=== PATIENT | female | born 1935 | race Caucasian/White ===

== ENCOUNTER 2018-04-27 11:03 | Inpatient (IN) | payer MEDICARE ==
[2018-04-27] MEDS ORDERED: ALBUTEROL NEBULIZED 2.5 MG/3 ML INHALATION STA (11:35)
[2018-04-27] MEDS ORDERED: IPRATROPIUM 0.5 MG/2.5 ML NEBU INHALATION STA (11:35)
--- NOTE | 2018-04-27 11:45 | ED ---
General Adult HPI - General Chief complaint: Shortness of Breath Stated complaint: KATELIN Time Seen by Provider: 04/27/18 11:21 Source: patient, RN notes reviewed, old records reviewed Mode of arrival: wheelchair Limitations: no limitations - History of Present Illness Initial comments: This is a 82-year-old female the ER for evaluation. Patient presents today for evaluation regarding shortness of breath shortness breath cough and congestion. Lower extremity edema. Decreased exercise or activity level. Patient has history of heart failure history of lung disease. Patient was recently diagnosed with rheumatologic issues and arthritis. Placed on gabapentin thinks it may be medication reaction. Patient denies any fevers, she does have increased cough and congestion. No recent travel history no sick contacts no recent hospitalizations - Related Data Home Medications Medication Instructions Recorded Confirmed Ascorbic Acid [Vitamin C] 500 mg PO DAILY 04/27/18 04/27/18 Calcium Carbonate [Tums] 500 - 1,000 mg PO TID PRN 04/27/18 04/27/18 Carboxymethylcellulose Sodium 1 - 2 drop BOTH EYES QID PRN 04/27/18 04/27/18 [Refresh Tears] Carvedilol [Coreg] 12.5 mg PO HS 04/27/18 04/27/18 Carvedilol [Coreg] 25 mg PO DAILY 04/27/18 04/27/18 Cholecalciferol (Vitamin D3) 2,000 unit PO DAILY 04/27/18 04/27/18 [Vitamin D3] Claritin 12 Hour Reditabs 1 tab PO Q12H PRN 04/27/18 04/27/18 Diltiazem HCl [Diltiazem ER] 360 mg PO DAILY 04/27/18 04/27/18 Fluticasone/Vilanterol [Breo 1 puff INHALATION RT-DAILY 04/27/18 04/27/18 Ellipta 200-25 Mcg INH] Ipratropium/Albuterol Sulfate 1 puff INHALATION RT-QID PRN 04/27/18 04/27/18 [Combivent Respimat Inhaler] Latanoprost [Xalatan 0.005%] 1 drop RIGHT EYE HS 04/27/18 04/27/18 Montelukast [Singulair] 10 mg PO HS 04/27/18 04/27/18 Naproxen Sodium [Aleve] 440 mg PO BID 04/27/18 04/27/18 Ranitidine HCl [Zantac] 150 mg PO BID PRN 04/27/18 04/27/18 Allergies Allergy/AdvReac Type Severity Reaction Status Date / Time amlodipine Allergy Unknown Verified 04/27/18 11:52 benazepril [From Lotrel] Allergy Unknown Verified 04/27/18 11:52 cephalexin [From Keflex] Allergy Anaphylaxis Verified 04/27/18 11:52 Cephalosporins Allergy Anaphylaxis Verified 04/27/18 11:52 codeine Allergy Unknown Verified 04/27/18 11:52 gabapentin Allergy Swelling Verified 04/27/18 11:52 Iodinated Contrast- Oral and Allergy Anaphylaxis Verified 04/27/18 11:52 IV Dye nebivolol [From Bystolic] Allergy Unknown Verified 04/27/18 11:52 olmesartan [From Benicar] Allergy Unknown Verified 04/27/18 11:52 Penicillins Allergy Anaphylaxis Verified 04/27/18 11:52 Sulfa (Sulfonamide Allergy Anaphylaxis Verified 04/27/18 11:52 Antibiotics) apixaban [From Eliquis] AdvReac BONE PAIN Verified 04/27/18 11:52 clonidine AdvReac BLURRED Verified 04/27/18 11:52 VISION, DIZZY, SCRATCHY THROAT furosemide [From Lasix] AdvReac Nausea & Verified 04/27/18 11:52 Vomiting & Diarrhea hydralazine AdvReac CHILLS, Verified 04/27/18 11:52 SHAKING, LIGHT HEADED, FACE FLUSHED isosorbide [From Imdur] AdvReac Rapid Verified 04/27/18 11:52 Heart Rate labetalol AdvReac Dyspnea Verified 04/27/18 11:52 lisinopril AdvReac Nausea & Verified 04/27/18 11:52 Vomiting & Diarrhea/COUGH PAPER MEDICAL TAPE Allergy Unknown Uncoded 04/27/18 11:52 Review of Systems ROS Statement: Those systems with pertinent positive or pertinent negative responses have been documented in the HPI. ROS Other: All systems not noted in ROS Statement are negative. Past Medical History Past Medical History: Atrial Fibrillation, Asthma, Heart Failure, COPD, Hypertension, Thyroid Disorder History of Any Multi-Drug Resistant Organisms: None Reported Past Surgical History: Hysterectomy, Tonsillectomy Additional Past Surgical History / Comment(s): bladder suspension, ectopic, thyroid biopsy, cataract, glaucoma sx Past Psychological History: No Psychological Hx Reported Smoking Status: Former smoker Past Alcohol Use History: None Reported Past Drug Use History: None Reported General Exam Limitations: no limitations General appearance: alert, in no apparent distress, in distress Head exam: Present: atraumatic, normocephalic, normal inspection Eye exam: Present: normal appearance, PERRL, EOMI. Absent: scleral icterus, conjunctival injection, periorbital swelling ENT exam: Present: normal exam, mucous membranes moist Neck exam: Present: normal inspection. Absent: tenderness, meningismus, lymphadenopathy Respiratory exam: Present: wheezes, rales, accessory muscle use, decreased breath sounds, prolonged expiratory. Absent: respiratory distress, rhonchi, stridor Cardiovascular Exam: Present: regular rate, normal rhythm, normal heart sounds. Absent: systolic murmur, diastolic murmur, rubs, gallop, clicks GI/Abdominal exam: Present: soft, normal bowel sounds. Absent: distended, tenderness, guarding, rebound, rigid Extremities exam: Present: normal inspection, full ROM, normal capillary refill. Absent: tenderness, pedal edema, joint swelling, calf tenderness Back exam: Present: normal inspection Neurological exam: Present: alert, oriented X3, CN II-XII intact Psychiatric exam: Present: normal affect, normal mood Skin exam: Present: warm, dry, intact, normal color. Absent: rash Course Vital Signs 04/27/18 04/27/18 04/27/18 11:04 11:55 12:10 Temperature 97.8 F Pulse Rate 76 76 80 Respiratory 25 H Rate Blood Pressure 191/90 O2 Sat by Pulse 92 L Oximetry 04/27/18 04/27/18 12:32 12:52 Temperature Pulse Rate 80 81 Respiratory 28 H Rate Blood Pressure 226/111 O2 Sat by Pulse 86 L Oximetry - Reevaluation(s) Reevaluation #1: 04/27/18 13:24 A she had significant hypoxic episode here in the emergency room while ambulating to use the commode. Patient improved when placed back in bed and on oxygen Reevaluation #2: 04/27/18 13:25 Medical records thoroughly reviewed EKG Findings - EKG Comments: EKG Findings:: EKG shows NSR rate of 73, NE 138, QRS 84, QTc 423 Medical Decision Making - Medical Decision Making 81-year-old female the ER for evaluation. Patient is here with significant shortness of breath, positive CHF. Patient be admitted for tight blood pressure control, breathing treatments and monitoring of cardiopulmonary resuscitation, moderate hypoxia. - Lab Data Result diagrams: 04/27/18 11:42 04/27/18 11:42 Lab Results 04/27/18 04/27/18 04/27/18 Range/Units 11:42 11:42 11:42 WBC 7.2 (3.8-10.6) k/uL RBC 4.33 (3.80-5.40) m/uL Hgb 13.4 (11.4-16.0) gm/dL Hct 42.9 (34.0-46.0) % MCV 99.0 (80.0-100.0) fL MCH 30.8 (25.0-35.0) pg MCHC 31.1 (31.0-37.0) g/dL RDW 15.3 (11.5-15.5) % Plt Count 117 L (150-450) k/uL Neutrophils % 82 % Lymphocytes % 10 % Monocytes % 7 % Eosinophils % 1 % Basophils % 0 % Neutrophils # 5.9 (1.3-7.7) k/uL Lymphocytes # 0.7 L (1.0-4.8) k/uL Monocytes # 0.5 (0-1.0) k/uL Eosinophils # 0.1 (0-0.7) k/uL Basophils # 0.0 (0-0.2) k/uL Macrocytosis Slight PT (9.0-12.0) sec INR (<1.2) APTT (22.0-30.0) sec Sodium 143 (137-145) mmol/L Potassium 4.1 (3.5-5.1) mmol/L Chloride 114 H (98-107) mmol/L Carbon Dioxide 24 (22-30) mmol/L Anion Gap 5 mmol/L BUN 29 H (7-17) mg/dL Creatinine 0.80 (0.52-1.04) mg/dL Est GFR (CKD-EPI)AfAm 80 (>60 ml/min/1.73 sqM) Est GFR (CKD-EPI)NonAf 70 (>60 ml/min/1.73 sqM) Glucose 124 H (74-99) mg/dL Calcium 8.7 (8.4-10.2) mg/dL Magnesium 2.0 (1.6-2.3) mg/dL Total Bilirubin 1.1 (0.2-1.3) mg/dL AST 23 (14-36) U/L ALT 99 H (9-52) U/L Alkaline Phosphatase 59 (38-126) U/L Total Creatine Kinase 33 (30-135) U/L CK-MB (CK-2) 1.7 (0.0-2.4) ng/mL CK-MB (CK-2) Rel Index 5.2 Troponin I 0.015 (0.000-0.034) ng/mL NT-Pro-B Natriuret Pep pg/mL Total Protein 5.5 L (6.3-8.2) g/dL Albumin 3.0 L (3.5-5.0) g/dL Urine Color Urine Appearance (Clear) Urine pH (5.0-8.0) Ur Specific [place] (1.001-1.035) Urine Protein (Negative) Urine Glucose (UA) (Negative) Urine Ketones (Negative) Urine Blood (Negative) Urine Nitrite (Negative) Urine Bilirubin (Negative) Urine Urobilinogen (<2.0) mg/dL Ur Leukocyte Esterase (Negative) Urine RBC (0-5) /hpf Urine WBC (0-5) /hpf Ur Squamous Epith Cells (0-4) /hpf Urine Bacteria (None) /hpf Urine Mucus (None) /hpf 04/27/18 04/27/18 04/27/18 Range/Units 11:42 11:42 12:46 WBC (3.8-10.6) k/uL RBC (3.80-5.40) m/uL Hgb (11.4-16.0) gm/dL Hct (34.0-46.0) % MCV (80.0-100.0) fL MCH (25.0-35.0) pg MCHC (31.0-37.0) g/dL RDW (11.5-15.5) % Plt Count (150-450) k/uL Neutrophils % % Lymphocytes % % Monocytes % % Eosinophils % % Basophils % % Neutrophils # (1.3-7.7) k/uL Lymphocytes # (1.0-4.8) k/uL Monocytes # (0-1.0) k/uL Eosinophils # (0-0.7) k/uL Basophils # (0-0.2) k/uL Macrocytosis PT 11.8 (9.0-12.0) sec INR 1.2 H (<1.2) APTT 20.2 L (22.0-30.0) sec Sodium (137-145) mmol/L Potassium (3.5-5.1) mmol/L Chloride (98-107) mmol/L Carbon Dioxide (22-30) mmol/L Anion Gap mmol/L BUN (7-17) mg/dL Creatinine (0.52-1.04) mg/dL Est GFR (CKD-EPI)AfAm (>60 ml/min/1.73 sqM) Est GFR (CKD-EPI)NonAf (>60 ml/min/1.73 sqM) Glucose (74-99) mg/dL Calcium (8.4-10.2) mg/dL Magnesium (1.6-2.3) mg/dL Total Bilirubin (0.2-1.3) mg/dL AST (14-36) U/L ALT (9-52) U/L Alkaline Phosphatase (38-126) U/L Total Creatine Kinase (30-135) U/L CK-MB (CK-2) (0.0-2.4) ng/mL CK-MB (CK-2) Rel Index Troponin I (0.000-0.034) ng/mL NT-Pro-B Natriuret Pep 3390 pg/mL Total Protein (6.3-8.2) g/dL Albumin (3.5-5.0) g/dL Urine Color Yellow Urine Appearance Cloudy H (Clear) Urine pH 5.5 (5.0-8.0) Ur Specific [place] 1.021 (1.001-1.035) Urine Protein 1+ H (Negative) Urine Glucose (UA) Negative (Negative) Urine Ketones Negative (Negative) Urine Blood Negative (Negative) Urine Nitrite Negative (Negative) Urine Bilirubin Negative (Negative) Urine Urobilinogen <2.0 (<2.0) mg/dL Ur Leukocyte Esterase Moderate H (Negative) Urine RBC 3 (0-5) /hpf Urine WBC 6 H (0-5) /hpf Ur Squamous Epith Cells 3 (0-4) /hpf Urine Bacteria Rare H (None) /hpf Urine Mucus Rare H (None) /hpf - Radiology Data Radiology results: report reviewed (Chest x-ray is positive for CHF), image reviewed Critical Care Time Critical Care Time: Yes Total Critical Care Time: 31 Disposition Clinical Impression: Acute exacerbation of chronic obstructive airways disease, Acute pulmonary edema, Congestive heart failure, Hypoxia Disposition: [facility] Condition: Serious Is patient prescribed a controlled substance at d/c from ED?: No Referrals: Elham Kumar MD [Primary Care Provider] - 1-2 days
[2018-04-27 12:00] LABS: Basophils % (A) 0 %; Eosinophils # (A) 0.1 k/uL (0-0.7); Eosinophils % (A) 1 %; HCT 42.9 % (34.0-46.0); HGB 13.4 gm/dL (11.4-16.0); Lymphocytes # (A) 0.7 k/uL (1.0-4.8); Lymphocytes % (A) 10 %; MCH 30.8 pg (25.0-35.0); MCHC 31.1 g/dL (31.0-37.0); Macrocytosis Slight; Mean Platelet Volume 7.4; Monocytes # (A) 0.5 k/uL (0-1.0); Monocytes % (A) 7 %; Neutrophils # (A) 5.9 k/uL (1.3-7.7); Neutrophils % (A) 82 %; Platelet Count 117 k/uL (150-450); RBC 4.33 m/uL (3.80-5.40); RDW 15.3 % (11.5-15.5); WBC 7.2 k/uL (3.8-10.6)
[2018-04-27 12:11] LABS: Calcium 8.7 mg/dL (8.4-10.2); Potassium 4.1 mmol/L (3.5-5.1); Total Bilirubin 1.1 mg/dL (0.2-1.3); Total Protein 5.5 g/dL (6.3-8.2)
[2018-04-27 12:27] LABS: INR 1.2 (<1.2); Prothrombin Time 11.8 sec (9.0-12.0)
[2018-04-27 12:32] LABS: Partial Thromboplastin Time 20.2 sec (22.0-30.0)
[2018-04-27] MEDS ORDERED: ENALAPRILAT 1.25 MG/ML 1 ML VIAL IVP STA (12:45)
[2018-04-27] MEDS ORDERED: FUROSEMIDE 10 MG/ML 4 ML VIAL IV STA (12:45)
[2018-04-27 12:46] LABS: Creatine Kinase MB 1.7 ng/mL (0.0-2.4); Troponin I 0.015 ng/mL (0.000-0.034)
--- NOTE | 2018-04-27 12:48 | XR ---
EXAMINATION TYPE: XR chest 2V DATE OF EXAM: 04/27/2018 COMPARISON: Chest x-ray November 09, 2012. CTA chest September 21, 2012. HISTORY: Bilateral leg swelling and shortness of breath TECHNIQUE: Frontal and lateral views of the chest are obtained. FINDINGS: There is moderate to severe underlying emphysematous change with new tiny bilateral pleura l effusions. More prominent bilateral interstitial prominence is noted. The cardiac silhouette size i s now mildly enlarged. The osseous structures are intact. IMPRESSION: Suspected CHF exacerbation on background moderate to severe chronic emphysematous change as there is new mild cardiomegaly with small bilateral pleural effusions and likely new mild interst itial edema.
[2018-04-27 13:16] LABS: Appearance,Urine Cloudy (Clear); Bacteria,Urine Rare /hpf; Bilirubin,Urine Negative (Negative); Blood,Urine Negative (Negative); Color,Urine Yellow; Glucose,Urine (UA) Negative (Negative); Ketones,Urine Negative (Negative); Leukocyte Esterase,Urine Moderate (Negative); Mucus,Urine Rare /hpf; Nitrite,Urine Negative (Negative); PH, Urine 5.5 (5.0-8.0); Protein,Urine 1+ (Negative); RBC,Urine 3 /hpf (0-5); Specific Gravity,Urine 1.021 (1.001-1.035); Squamous Epithelial Cell,Urine 3 /hpf (0-4); Urobilinogen,Urine <2.0 mg/dL (<2.0); WBC,Urine 6 /hpf (0-5)
[2018-04-27] MEDS ORDERED: methylPREDNISolone SOD SUCCI 125 MG/2 ML VIAL IV STA (13:21)
[2018-04-27] MEDS ORDERED: SPIRONOLACTONE 25 MG TAB PO STA (13:23)
[2018-04-27] MEDS ORDERED: HYDROCHLOROTHIAZIDE 50 MG TAB PO STA (13:23)
[2018-04-27] MEDS ORDERED: ARTIFICIAL TEARS-HYPROMELLOSE DROPS 15 ML BTL BOTH EYES PRN (14:48)
[2018-04-27] MEDS ORDERED: FAMOTIDINE 20 MG TAB PO PRN (14:48)
[2018-04-27] MEDS ORDERED: CALCIUM CARBONATE 500 MG CHEWABLE PO PRN (14:48)
[2018-04-27] MEDS ORDERED: LORATADINE 10 MG TAB PO PRN (14:48)
[2018-04-27] MEDS ORDERED: IPRATROPIUM-ALBUTEROL 3 ML NEB INHALATION PRN ×2 (14:48→14:50)
[2018-04-27] MEDS ORDERED: LEVOFLOXACIN 500 MG TAB PO SCH (15:00)
--- NOTE | 2018-04-27 15:10 | P.HPIM ---
History of Present Illness H&P Date: 04/27/18 Chief Complaint: Shortness of breath and lower extremity edema This is a 82-year-old female with a known past medical history of paroxysmal atrial fibrillation, COPD, congestive heart failure and hypertension. Patient reports multiple medication ALLERGIES. Patient examined in the emergency room. She presents to the hospital with complaints of lower extremity edema and shortness of breath over the last week. Patient was recently started on gabapentin by the band straightener. She is under going rheumatology workup outpatient. Patient has been on the gabapentin for the past 3 weeks. And within the last week she's noticed increased swelling in her legs and shortness of breath. Initially she thought she was having an ALLERGIC reaction to the gabapentin. She presented to the emergency room for further evaluation and treatment. She was found to have elevated BNP 3390. Chest x-ray shows suspected CHF exacerbation on background of moderate to severe chronic emphysematous change as there is new mild cardiomegaly with small bilateral pleural effusions and likely new mild interstitial edema. She diagnosed with CHF exacerbation. Patient has ALLERGY to Lasix. Also had elevated blood pressure in the emergency room of 226/111. She was given hydrochlorothiazide and Aldactone. Also started on IV Solu-Medrol and bronchodilators for a COPD exacerbation. Pulmonary and cardiology have been consulted. Her oxygen saturation had dropped down into the 80s and she is currently on 3 L. Patient also reports urinary symptoms with urinary hesitancy. She has evidence of a UTI will be placed on Levaquin. She does penicillin and sulfa ALLERGY. Gabapentin discontinued. Patient denies any chest pain, cough, fever or chills or sweats. Denies any nausea or vomiting. Reports over the last day or 2 she' s had frequent stools but they are formed. She denies any headaches. Denies any lateralized weakness or numbness of the extremities. She does reports having some vision changes in both eyes lasting for a few minutes yesterday while looking out the window. Vision returned to normal after those few minutes. EKG normal sinus rhythm. Troponins negative. Review of Systems Please refer to HPI otherwise unremarkable Past Medical History Past Medical History: Atrial Fibrillation, Asthma, Heart Failure, COPD, Hypertension, Thyroid Disorder History of Any Multi-Drug Resistant Organisms: None Reported Past Surgical History: Hysterectomy, Tonsillectomy Additional Past Surgical History / Comment(s): bladder suspension, ectopic, thyroid biopsy, cataract, glaucoma sx Past Psychological History: No Psychological Hx Reported Smoking Status: Former smoker Past Alcohol Use History: None Reported Past Drug Use History: None Reported Medications and Allergies Home Medications Medication Instructions Recorded Confirmed Type Ascorbic Acid [Vitamin C] 500 mg PO DAILY 04/27/18 04/27/18 History Calcium Carbonate [Tums] 500 - 1,000 mg PO TID PRN 04/27/18 04/27/18 History Carboxymethylcellulose Sodium 1 - 2 drop BOTH EYES QID PRN 04/27/18 04/27/18 History [Refresh Tears] Carvedilol [Coreg] 12.5 mg PO HS 04/27/18 04/27/18 History Carvedilol [Coreg] 25 mg PO DAILY 04/27/18 04/27/18 History Cholecalciferol (Vitamin D3) 2,000 unit PO DAILY 04/27/18 04/27/18 History [Vitamin D3] Claritin 12 Hour Reditabs 1 tab PO Q12H PRN 04/27/18 04/27/18 History Diltiazem HCl [Diltiazem ER] 360 mg PO DAILY 04/27/18 04/27/18 History Fluticasone/Vilanterol [Breo 1 puff INHALATION RT-DAILY 04/27/18 04/27/18 History Ellipta 200-25 Mcg INH] Ipratropium/Albuterol Sulfate 1 puff INHALATION RT-QID PRN 04/27/18 04/27/18 History [Combivent Respimat Inhaler] Latanoprost [Xalatan 0.005%] 1 drop RIGHT EYE HS 04/27/18 04/27/18 History Montelukast [Singulair] 10 mg PO HS 04/27/18 04/27/18 History Naproxen Sodium [Aleve] 440 mg PO BID 04/27/18 04/27/18 History Ranitidine HCl [Zantac] 150 mg PO BID PRN 04/27/18 04/27/18 History Allergies Allergy/AdvReac Type Severity Reaction Status Date / Time amlodipine Allergy Unknown Verified 04/27/18 11:52 benazepril [From Lotrel] Allergy Unknown Verified 04/27/18 11:52 cephalexin [From Keflex] Allergy Anaphylaxis Verified 04/27/18 11:52 Cephalosporins Allergy Anaphylaxis Verified 04/27/18 11:52 codeine Allergy Unknown Verified 04/27/18 11:52 gabapentin Allergy Swelling Verified 04/27/18 11:52 Iodinated Contrast- Oral and Allergy Anaphylaxis Verified 04/27/18 11:52 IV Dye nebivolol [From Bystolic] Allergy Unknown Verified 04/27/18 11:52 olmesartan [From Benicar] Allergy Unknown Verified 04/27/18 11:52 Penicillins Allergy Anaphylaxis Verified 04/27/18 11:52 Sulfa (Sulfonamide Allergy Anaphylaxis Verified 04/27/18 11:52 Antibiotics) apixaban [From Eliquis] AdvReac BONE PAIN Verified 04/27/18 11:52 clonidine AdvReac BLURRED Verified 04/27/18 11:52 VISION, DIZZY, SCRATCHY THROAT furosemide [From Lasix] AdvReac Nausea & Verified 04/27/18 11:52 Vomiting & Diarrhea hydralazine AdvReac CHILLS, Verified 04/27/18 11:52 SHAKING, LIGHT HEADED, FACE FLUSHED isosorbide [From Imdur] AdvReac Rapid Verified 04/27/18 11:52 Heart Rate labetalol AdvReac Dyspnea Verified 04/27/18 11:52 lisinopril AdvReac Nausea & Verified 04/27/18 11:52 Vomiting & Diarrhea/COUGH PAPER MEDICAL TAPE Allergy Unknown Uncoded 04/27/18 11:52 Physical Exam Vitals: Vital Signs Temp Pulse Resp BP Pulse Ox 04/27/18 13:55 87 18 187/87 95 04/27/18 13:38 77 18 182/88 92 L 04/27/18 12:52 81 28 H 226/111 86 L 04/27/18 12:32 80 04/27/18 12:10 80 04/27/18 11:55 76 04/27/18 11:04 97.8 F 76 25 H 191/90 92 L Intake and Output 04/26/18 04/27/18 04/27/18 22:59 06:59 14:59 Other: Weight 94.347 kg Head normocephalic Neck supple Lungs crackles left lower lobe with faint scattered wheezing Heart regular rate and rhythm S1-S2, no rub or gallop Abdomen is soft nontender nondistended positive bowel sounds no hepatosplenomegaly Extremities +2 lower extremity edema with chronic stasis changes of the legs. Right tibia has some redness. Patient reports this is chronic. Does not feel warm to touch. Neuro alert and orientated to 3 Results CBC & Chem 7: 04/27/18 11:42 04/27/18 11:42 Labs: Abnormal Lab Results - Last 24 Hours (Table) 04/27/18 04/27/18 04/27/18 Range/Units 11:42 11:42 11:42 Plt Count 117 L (150-450) k/uL Lymphocytes # 0.7 L (1.0-4.8) k/uL INR 1.2 H (<1.2) APTT 20.2 L (22.0-30.0) sec Chloride 114 H (98-107) mmol/L BUN 29 H (7-17) mg/dL Glucose 124 H (74-99) mg/dL ALT 99 H (9-52) U/L Total Protein 5.5 L (6.3-8.2) g/dL Albumin 3.0 L (3.5-5.0) g/dL Urine Appearance (Clear) Urine Protein (Negative) Ur Leukocyte Esterase (Negative) Urine WBC (0-5) /hpf Urine Bacteria (None) /hpf Urine Mucus (None) /hpf 04/27/18 Range/Units 12:46 Plt Count (150-450) k/uL Lymphocytes # (1.0-4.8) k/uL INR (<1.2) APTT (22.0-30.0) sec Chloride (98-107) mmol/L BUN (7-17) mg/dL Glucose (74-99) mg/dL ALT (9-52) U/L Total Protein (6.3-8.2) g/dL Albumin (3.5-5.0) g/dL Urine Appearance Cloudy H (Clear) Urine Protein 1+ H (Negative) Ur Leukocyte Esterase Moderate H (Negative) Urine WBC 6 H (0-5) /hpf Urine Bacteria Rare H (None) /hpf Urine Mucus Rare H (None) /hpf Assessment and Plan Assessment: 1. Acute hypoxic respiratory failure likely multifactorial related to congestive heart failure exacerbation and COPD exacerbation. Patient requiring 3 L of oxygen. Pulmonary service consulted. 2. Acute on chronic congestive heart failure exacerbation: Check 2-D echo. Patient had elevated BNP on admission and CHF changes on chest x-ray. Patient has ALLERGY to Lasix. She was given Aldactone and hydrochlorothiazide in the ER. Cardiology has been consulted 3. Acute COPD exacerbation: Patient started on IV site Medrol bronchodilators. Pulmonary service consulted. No evidence of pneumonia on chest x-ray 4. History of paroxysmal atrial fibrillation: Continue Coreg and Cardizem. Not on anticoagulation at home. Patient reports having ALLERGY to Eliquis and did not want to try any other blood thinners. EKG normal sinus rhythm 5. UTI: Check urine culture. Start Levaquin 6. Hypertensive urgency on admission: Patient given hydrochlorothiazide and Aldactone in ER. Continue monitoring BP. Resume home medications. Cardiology consulted 7. Essential hypertension GI prophylaxis Pepcid and DVT prophylaxis Lovenox Time with Patient: Greater than 30 (Greater than 60% of the total time spent in counseling and coordination of care.I performed an examination of the patient and discussed their management with the physician Sales Operations. I have reviewed the Physician Sales Operations's notes and agree with the documented findings and plan of care)
[2018-04-27] MEDS: IPRATROPIUM-ALBUTEROL 3 ML NEB INHALATION SCH ×2 (16:00→19:45)
[2018-04-27] MEDS: CLINDAMYCIN 150 MG CAP PO SCH ×2 (17:28→22:41)
[2018-04-27] MEDS ORDERED: NAPROXEN 250 MG TAB PO SCH (17:30)
[2018-04-27 18:43] LABS: Glucose,Whole Blood 211 mg/dL (75-99)
[2018-04-27] MEDS: INSULIN ASPART 100 UNIT/ML 1 ML 10 ML VIAL SQ SCH ×2 (19:02→22:38)
[2018-04-27] MEDS: methylPREDNISolone SOD SUCCI 125 MG/2 ML VIAL IV SCH (19:02)
[2018-04-27] MEDS: SYMBICORT 160-4.5 MCG INHALER INHALATION SCH (19:53)
[2018-04-27] MEDS ORDERED: CARVEDILOL 12.5 MG TAB PO SCH (21:00)
[2018-04-27] MEDS: NAPROXEN 250 MG TAB PO SCH (22:39)
[2018-04-27] MEDS: MONTELUKAST 10 MG TAB PO SCH (22:41)
[2018-04-27] MEDS: LATANOPROST 0.005% OPHTH DROPS 2.5 ML BTL RIGHT EYE SCH (22:44)
[2018-04-28] MEDS: methylPREDNISolone SOD SUCCI 125 MG/2 ML VIAL IV SCH ×2 (00:23→05:55)
[2018-04-28 06:30] LABS: Glucose,Whole Blood 159 mg/dL (75-99)
[2018-04-28] MEDS: INSULIN ASPART 100 UNIT/ML 1 ML 10 ML VIAL SQ SCH ×5 (06:34→21:15)
[2018-04-28 06:54] LABS: Basophils % (A) 0 %; Eosinophils % (A) 0 %; HCT 38.5 % (34.0-46.0); HGB 12.2 gm/dL (11.4-16.0); Lymphocytes # (A) 0.4 k/uL (1.0-4.8); Lymphocytes % (A) 8 %; MCH 30.7 pg (25.0-35.0); MCHC 31.7 g/dL (31.0-37.0); MCV 96.6 fL (80.0-100.0); Mean Platelet Volume 7.7; Monocytes # (A) 0.1 k/uL (0-1.0); Monocytes % (A) 2 %; Neutrophils # (A) 4.9 k/uL (1.3-7.7); Neutrophils % (A) 90 %; Platelet Count 116 k/uL (150-450); RBC 3.99 m/uL (3.80-5.40); RDW 14.8 % (11.5-15.5); WBC 5.5 k/uL (3.8-10.6)
[2018-04-28 07:09] LABS: Albumin 2.6 g/dL (3.5-5.0); Calcium 8.5 mg/dL (8.4-10.2); Potassium 3.9 mmol/L (3.5-5.1); Total Bilirubin 0.9 mg/dL (0.2-1.3); Total Protein 4.9 g/dL (6.3-8.2)
[2018-04-28] MEDS: IPRATROPIUM-ALBUTEROL 3 ML NEB INHALATION SCH ×4 (07:56→19:43)
[2018-04-28] MEDS: SYMBICORT 160-4.5 MCG INHALER INHALATION SCH (07:56)
[2018-04-28] MEDS ORDERED: DILTIAZEM CD 180 MG CAP.ER.24H PO SCH (09:00)
[2018-04-28] MEDS ORDERED: BUMETANIDE 1 MG TAB PO SCH (09:00)
[2018-04-28] MEDS ORDERED: CARVEDILOL 12.5 MG TAB PO SCH (09:00)
[2018-04-28] MEDS: NAPROXEN 250 MG TAB PO SCH ×2 (09:26→20:25)
[2018-04-28] MEDS: CHOLECALCIFEROL 1,000 UNIT TAB PO SCH (09:27)
[2018-04-28] MEDS: FAMOTIDINE 20 MG TAB PO SCH (09:27)
[2018-04-28] MEDS: CLINDAMYCIN 150 MG CAP PO SCH ×3 (09:27→20:24)
[2018-04-28] MEDS: ENOXAPARIN 40 MG/0.4 ML SYRINGE SQ SCH (09:34)
--- NOTE | 2018-04-28 09:51 | P.CRDCN ---
History of Present Illness Consult date: 04/28/18 Requesting physician: Elham Kumar Consult reason: congestive heart failure Chief complaint: Shortness of breath and bilateral lower extremity edema History of present illness: This is a pleasant 82-year-old female who follows regularly with Dr. Holliday in the office. She has a known history of hypertension, COPD, proximal atrial fibrillation, patient states she was initiated on Eliquis in the past by Dr. Holliday, but had difficulty in breathing and for this reason she stopped it. Patient has multiple multiple ALLERGIES. She presents to the hospital on this occasion with symptoms of progressively worsening peripheral edema which she states has been going on for the past one week or so, she also states for the past few days she's been very short of breath, to the point where she feels she is unable to breathe at all. Her shortness of breath mainly occurs with exertion, even walking a very short distance to the bathroom. At rest her symptoms seemed to subside. Patient also states that she's been getting some discomfort in her upper back area between her scapula which she has been attributing to muscle pain. According to the patient, she states she had a stress test in the office performed by Dr. Holliday he told the patient that there was a shadow and recommended she undergo cardiac catheterization, patient decided at that time because it was only a shadow not to proceed with heart catheterization. Patient was recently started on a medication called gabapentin approximately 3 weeks ago, when the symptoms of swelling started in both legs she thought initially it was from that, because symptoms continued to worsen and she had no relief with her breathing treatments she came to the ER. Chest x-ray on admission here revealed CHF exacerbation on the background of moderate to severe emphysema, small bilateral pleural effusions were also noted. EKG on arrival here shows a normal sinus rhythm. Blood pressure on arrival 190/90, heart rate in the 70s, 92% on room air. Blood pressure this morning 150/90 with a heart rate in the 90s, 94% on 2 L of oxygen. White blood cell count is normal, hemoglobin 12.2, platelet count 116. Sodium 141, potassium 3.9, BUN 23, creatinine 0.7. Troponins have been negative 3. BNP level 3390. TSH level 0.19. The patient does have an ALLERGY to Lasix, she was given a dose of hydrochlorothiazide in the emergency room as well as Aldactone. 019. Past Medical History Past Medical History: Atrial Fibrillation, Asthma, Heart Failure, COPD, Hypertension, Thyroid Disorder History of Any Multi-Drug Resistant Organisms: None Reported Past Surgical History: Hysterectomy, Tonsillectomy Additional Past Surgical History / Comment(s): bladder suspension, ectopic, thyroid biopsy, cataract, glaucoma sx Past Psychological History: No Psychological Hx Reported Smoking Status: Former smoker Past Alcohol Use History: None Reported Past Drug Use History: None Reported Medications and Allergies Home Medications Medication Instructions Recorded Confirmed Type Ascorbic Acid [Vitamin C] 500 mg PO DAILY 04/27/18 04/27/18 History Calcium Carbonate [Tums] 500 - 1,000 mg PO TID PRN 04/27/18 04/27/18 History Carboxymethylcellulose Sodium 1 - 2 drop BOTH EYES QID PRN 04/27/18 04/27/18 History [Refresh Tears] Carvedilol [Coreg] 12.5 mg PO HS 04/27/18 04/27/18 History Carvedilol [Coreg] 25 mg PO DAILY 04/27/18 04/27/18 History Cholecalciferol (Vitamin D3) 2,000 unit PO DAILY 04/27/18 04/27/18 History [Vitamin D3] Claritin 12 Hour Reditabs 1 tab PO Q12H PRN 04/27/18 04/27/18 History Diltiazem HCl [Diltiazem ER] 360 mg PO DAILY 04/27/18 04/27/18 History Fluticasone/Vilanterol [Breo 1 puff INHALATION RT-DAILY 04/27/18 04/27/18 History Ellipta 200-25 Mcg INH] Ipratropium/Albuterol Sulfate 1 puff INHALATION RT-QID PRN 04/27/18 04/27/18 History [Combivent Respimat Inhaler] Latanoprost [Xalatan 0.005%] 1 drop RIGHT EYE HS 04/27/18 04/27/18 History Montelukast [Singulair] 10 mg PO HS 04/27/18 04/27/18 History Naproxen Sodium [Aleve] 440 mg PO BID 04/27/18 04/27/18 History Ranitidine HCl [Zantac] 150 mg PO BID PRN 04/27/18 04/27/18 History Allergies Allergy/AdvReac Type Severity Reaction Status Date / Time amlodipine Allergy Unknown Verified 04/27/18 11:52 benazepril [From Lotrel] Allergy Unknown Verified 04/27/18 11:52 cephalexin [From Keflex] Allergy Anaphylaxis Verified 04/27/18 11:52 Cephalosporins Allergy Anaphylaxis Verified 04/27/18 11:52 codeine Allergy Unknown Verified 04/27/18 11:52 gabapentin Allergy Swelling Verified 04/27/18 11:52 Iodinated Contrast- Oral and Allergy Anaphylaxis Verified 04/27/18 11:52 IV Dye nebivolol [From Bystolic] Allergy Unknown Verified 04/27/18 11:52 olmesartan [From Benicar] Allergy Unknown Verified 04/27/18 11:52 Penicillins Allergy Anaphylaxis Verified 04/27/18 11:52 Sulfa (Sulfonamide Allergy Anaphylaxis Verified 04/27/18 11:52 Antibiotics) apixaban [From Eliquis] AdvReac BONE PAIN Verified 04/27/18 11:52 clonidine AdvReac BLURRED Verified 04/27/18 11:52 VISION, DIZZY, SCRATCHY THROAT furosemide [From Lasix] AdvReac Nausea & Verified 04/27/18 11:52 Vomiting & Diarrhea hydralazine AdvReac CHILLS, Verified 04/27/18 11:52 SHAKING, LIGHT HEADED, FACE FLUSHED isosorbide [From Imdur] AdvReac Rapid Verified 04/27/18 11:52 Heart Rate labetalol AdvReac Dyspnea Verified 04/27/18 11:52 lisinopril AdvReac Nausea & Verified 04/27/18 11:52 Vomiting & Diarrhea/COUGH PAPER MEDICAL TAPE Allergy Unknown Uncoded 04/27/18 11:52 Physical Exam Vitals: Vital Signs Temp Pulse Pulse Resp BP BP Pulse Ox 04/28/18 08:10 84 04/28/18 07:56 82 04/28/18 04:00 97.9 F 80 18 161/77 91 L 04/28/18 00:00 98 F 69 16 165/69 95 04/27/18 20:00 97.9 F 71 18 147/71 94 L 04/27/18 19:47 86 20 04/27/18 17:05 98.2 F 78 18 178/84 97 04/27/18 16:12 80 16 08/21/18 16:02 78 16 04/27/18 15:00 68 18 187/87 96 04/27/18 14:08 97.9 F 73 16 172/71 95 04/27/18 14:00 72 18 178/92 95 04/27/18 13:55 87 18 187/87 95 04/27/18 13:38 77 18 182/88 92 L 04/27/18 12:52 81 28 H 226/111 86 L 04/27/18 12:32 80 04/27/18 12:10 80 04/27/18 11:55 76 04/27/18 11:04 97.8 F 76 25 H 191/90 92 L Intake and Output 04/27/18 04/28/18 04/28/18 22:59 06:59 14:59 Intake Total 120 Output Total 1000 Balance 120 -1000 Intake: Oral 120 Output: Urine 1000 Other: Voiding Method Bedside Commode Bedside Commode # Voids 1 Weight 97.5 kg PHYSICAL EXAMINATION: GENERAL: 82-year-old female in no acute distress at the time of my examination HEENT: Head is atraumatic, normocephalic. Pupils equal, round. Sclera anicteric. Conjunctiva are clear. Mucous membranes of the mouth are moist. Neck is supple. There is elevated jugular venous pressure. No carotid bruit is heard. HEART EXAMINATION: Heart S1 S2 1 systolic murmur is heard. CHEST EXAMINATION: Lungs reveal diminished air entry bilaterally with rales heard at the bases ABDOMEN: Soft, nontender. Bowel sounds are heard. No organomegaly noted. EXTREMITIES:[ 2+ peripheral pulses with 2+ evidence of peripheral edema NEUROLOGIC patient is awake, alert and oriented X3 . Results 04/29/18 06:22 04/29/18 06:22 Cardiac Enzymes 04/27/18 04/27/18 04/27/18 Range/Units 11:42 11:42 19:11 AST 23 (14-36) U/L CK-MB (CK-2) 1.7 (0.0-2.4) ng/mL Troponin I 0.015 <0.012 (0.000-0.034) ng/mL 04/28/18 04/28/18 Range/Units 00:17 06:11 AST 17 (14-36) U/L CK-MB (CK-2) (0.0-2.4) ng/mL Troponin I <0.012 (0.000-0.034) ng/mL Coagulation 04/27/18 Range/Units 11:42 PT 11.8 (9.0-12.0) sec APTT 20.2 L (22.0-30.0) sec CBC 04/27/18 04/28/18 Range/Units 11:42 06:11 WBC 7.2 5.5 (3.8-10.6) k/uL RBC 4.33 3.99 (3.80-5.40) m/uL Hgb 13.4 12.2 (11.4-16.0) gm/dL Hct 42.9 38.5 (34.0-46.0) % Plt Count 117 L 116 L (150-450) k/uL Comprehensive Metabolic Panel 04/27/18 04/28/18 Range/Units 11:42 06:11 Sodium 143 141 (137-145) mmol/L Potassium 4.1 3.9 (3.5-5.1) mmol/L Chloride 114 H 113 H (98-107) mmol/L Carbon Dioxide 24 23 (22-30) mmol/L BUN 29 H 23 H (7-17) mg/dL Creatinine 0.80 0.74 (0.52-1.04) mg/dL Glucose 124 H 144 H (74-99) mg/dL Calcium 8.7 8.5 (8.4-10.2) mg/dL AST 23 17 (14-36) U/L ALT 99 H 76 H (9-52) U/L Alkaline Phosphatase 59 53 (38-126) U/L Total Protein 5.5 L 4.9 L (6.3-8.2) g/dL Albumin 3.0 L 2.6 L (3.5-5.0) g/dL Current Medications Generic Name Dose Route Start Last Admin Trade Name Freq PRN Reason Stop Dose Admin Albuterol/Ipratropium 3 ml 04/27/18 16:00 04/28/18 07:56 Duoneb 0.5 Mg-3 Mg/3 Ml Soln INHALATION 3 ml RT-QID ОЛЕГ Administration Albuterol/Ipratropium 3 ml 04/27/18 14:50 Duoneb 0.5 Mg-3 Mg/3 Ml Soln INHALATION RT-Q2H PRN Shortness Of Breath Or Wheezing Artificial Tears 2 drops 04/27/18 14:48 Artificial Tear Drops BOTH EYES QID PRN Dry Eye(s) Budesonide/Formoterol Fumarate 1 puff 04/28/18 08:00 04/28/18 07:56 Symbicort 160-4.5 Mcg Inhaler INHALATION 1 puff RT-BID ОЛЕГ Administration Bumetanide 1 mg 04/28/18 09:00 Bumex PO BID@0900,1600 [facility] Calcium Carbonate/Glycine 500 mg 04/27/18 14:48 Tums PO TID PRN Heartburn Carvedilol 12.5 mg 04/27/18 21:00 04/27/18 22:41 Coreg PO 12.5 mg HS [facility] Administration Carvedilol 25 mg 04/28/18 09:00 Coreg PO DAILY [facility] Cholecalciferol 2,000 unit 04/28/18 09:00 Vitamin D3 PO DAILY [facility] Clindamycin HCl 150 mg 04/27/18 16:00 04/27/18 22:41 Cleocin PO 150 mg TID [facility] Administration Diltiazem HCl 360 mg 04/28/18 09:00 Cardizem Cd PO DAILY [facility] Enoxaparin Sodium 40 mg 04/28/18 09:00 Lovenox SQ DAILY [facility] Famotidine 20 mg 04/28/18 09:00 Pepcid PO DAILY [facility] Insulin Aspart 0 unit 04/27/18 17:30 04/28/18 06:34 Novolog SQ 3 unit ACHS [facility] Administration Protocol Latanoprost 1 drops 04/27/18 21:00 04/27/18 22:44 Xalatan 0.005% RIGHT EYE 1 drops HS [facility] Administration Loratadine 10 mg 04/27/18 14:48 Claritin PO Q24H PRN Allergy Symptoms Methylprednisolone Sodium Succinate 60 mg 04/27/18 18:00 04/28/18 05:55 Solu-Medrol IV 60 mg Q6HR [facility] Administration Montelukast Sodium 10 mg 04/27/18 21:00 04/27/18 22:41 Singulair PO 10 mg HS [facility] Administration Naproxen 500 mg 04/27/18 21:00 04/27/18 22:39 Naprosyn PO 500 mg BID [facility] Administration Intake and Output 08/21/18 08/22/18 08/22/18 22:59 06:59 14:59 Intake Total 120 Output Total 1000 Balance 120 -1000 Intake: Oral 120 Output: Urine 1000 Other: Voiding Method Bedside Commode Bedside Commode # Voids 1 Weight 97.5 kg 04/28/18 06:11 04/28/18 06:11 EKG Interpretations (text) Assessment and plan #1 acute hypoxic respiratory failure, likely secondary congestive heart failure exacerbation, diastolic, acute on chronic, and COPD exacerbation. . #2 COPD history #3 paroxysmal atrial fibrillation, patient had stopped taking Eliquis because of symptoms of shortness of breath. #4 hypertensive urgency in a patient with history of hypertension #5 prior history of smoking #6 symptoms of exertional shortness of breath, possible angina. Patient was told to have had a positive stress test in the office and recommended to undergo cardiac catheterization which she refused at that time. Troponins negative 3. Plan We will start the patient on Bumex IV twice a day, increase Coreg to 25 mg twice a day for more optimal blood pressure control, she was on 25 in the morning and 12-1/2 in the afternoon. Monitor intake and output along with daily weights, daily lytes. We will obtain the office records and review. Once the patient heart failure resolves, cardiac catheterization. Further recommendations to follow. DNP note has been reviewed, I agree with a documented findings and plan of care. Patient was seen and examined.
--- NOTE | 2018-04-28 11:28 | P.CNPUL ---
History of Present Illness Consult date: 04/28/18 Reason for consult: dyspnea, hypoxemia Chief complaint: Shortness of breath History of present illness: This is an 82-year-old female who presented emergency department complaining of shortness of breath. The patient states this has been getting worse over the past few weeks. She did note worsening lower extremity edema however she states that she frequently has swelling and it usually goes away. She states this time it didn't seem to go away. She does have a known history of asthma and COPD. She takes Breo and Combivent at home. The patient has a history of atrial fibrillation and congestive heart failure as well. On chest x-ray she was found to have pulmonary vascular congestion and cardiomegaly. The patient is being seen by cardiology. She denies fevers and chills. She does not smoke. She has been hemodynamically stable. The patient apparently had a positive stress test on some outpatient but does not undergo cardiac catheterization. The patient is agreeable to proceed with that at this time. She also stopped taking Eliquis despite a history of paroxysmal atrial fibrillation. She felt it was making her breathing worse. Per the patient and her daughter the patient isn't got very short of breath even with minimal exertion at home. And this had been ongoing for several weeks. Review of Systems All systems: negative Past Medical History Past Medical History: Atrial Fibrillation, Asthma, Heart Failure, COPD, Hypertension, Thyroid Disorder History of Any Multi-Drug Resistant Organisms: None Reported Past Surgical History: Hysterectomy, Tonsillectomy Additional Past Surgical History / Comment(s): bladder suspension, ectopic, thyroid biopsy, cataract, glaucoma sx Past Psychological History: No Psychological Hx Reported Smoking Status: Former smoker Past Alcohol Use History: None Reported Past Drug Use History: None Reported Medications and Allergies Home Medications Medication Instructions Recorded Confirmed Type Ascorbic Acid [Vitamin C] 500 mg PO DAILY 04/27/18 04/27/18 History Calcium Carbonate [Tums] 500 - 1,000 mg PO TID PRN 04/27/18 04/27/18 History Carboxymethylcellulose Sodium 1 - 2 drop BOTH EYES QID PRN 04/27/18 04/27/18 History [Refresh Tears] Carvedilol [Coreg] 12.5 mg PO HS 04/27/18 04/27/18 History Carvedilol [Coreg] 25 mg PO DAILY 04/27/18 04/27/18 History Cholecalciferol (Vitamin D3) 2,000 unit PO DAILY 04/27/18 04/27/18 History [Vitamin D3] Claritin 12 Hour Reditabs 1 tab PO Q12H PRN 04/27/18 04/27/18 History Diltiazem HCl [Diltiazem ER] 360 mg PO DAILY 04/27/18 04/27/18 History Fluticasone/Vilanterol [Breo 1 puff INHALATION RT-DAILY 04/27/18 04/27/18 History Ellipta 200-25 Mcg INH] Ipratropium/Albuterol Sulfate 1 puff INHALATION RT-QID PRN 04/27/18 04/27/18 History [Combivent Respimat Inhaler] Latanoprost [Xalatan 0.005%] 1 drop RIGHT EYE HS 04/27/18 04/27/18 History Montelukast [Singulair] 10 mg PO HS 04/27/18 04/27/18 History Naproxen Sodium [Aleve] 440 mg PO BID 04/27/18 04/27/18 History Ranitidine HCl [Zantac] 150 mg PO BID PRN 04/27/18 04/27/18 History Allergies Allergy/AdvReac Type Severity Reaction Status Date / Time amlodipine Allergy Unknown Verified 04/27/18 11:52 benazepril [From Lotrel] Allergy Unknown Verified 04/27/18 11:52 cephalexin [From Keflex] Allergy Anaphylaxis Verified 04/27/18 11:52 Cephalosporins Allergy Anaphylaxis Verified 04/27/18 11:52 codeine Allergy Unknown Verified 04/27/18 11:52 gabapentin Allergy Swelling Verified 04/27/18 11:52 Iodinated Contrast- Oral and Allergy Anaphylaxis Verified 04/27/18 11:52 IV Dye nebivolol [From Bystolic] Allergy Unknown Verified 04/27/18 11:52 olmesartan [From Benicar] Allergy Unknown Verified 04/27/18 11:52 Penicillins Allergy Anaphylaxis Verified 04/27/18 11:52 Sulfa (Sulfonamide Allergy Anaphylaxis Verified 04/27/18 11:52 Antibiotics) apixaban [From Eliquis] AdvReac BONE PAIN Verified 04/27/18 11:52 clonidine AdvReac BLURRED Verified 04/27/18 11:52 VISION, DIZZY, SCRATCHY THROAT furosemide [From Lasix] AdvReac Nausea & Verified 04/27/18 11:52 Vomiting & Diarrhea hydralazine AdvReac CHILLS, Verified 04/27/18 11:52 SHAKING, LIGHT HEADED, FACE FLUSHED isosorbide [From Imdur] AdvReac Rapid Verified 04/27/18 11:52 Heart Rate labetalol AdvReac Dyspnea Verified 04/27/18 11:52 lisinopril AdvReac Nausea & Verified 04/27/18 11:52 Vomiting & Diarrhea/COUGH PAPER MEDICAL TAPE Allergy Unknown Uncoded 04/27/18 11:52 Physical Exam Osteopathic Statement: *. No significant issues noted on an osteopathic structural exam other than those noted in the History and Physical/Consult. Vitals: Vital Signs Temp Pulse Pulse Resp BP BP Pulse Ox 04/28/18 09:15 97.9 F 92 24 149/98 94 L 04/28/18 08:10 84 04/28/18 07:56 82 04/28/18 04:00 97.9 F 80 18 161/77 91 L 04/28/18 00:00 98 F 69 16 165/69 95 04/27/18 20:00 97.9 F 71 18 147/71 94 L 04/27/18 19:47 86 20 04/27/18 17:05 98.2 F 78 18 178/84 97 04/27/18 16:12 80 16 04/27/18 16:02 78 16 04/27/18 15:00 68 18 187/87 96 04/27/18 14:08 97.9 F 73 16 172/71 95 04/27/18 14:00 72 18 178/92 95 04/27/18 13:55 87 18 187/87 95 04/27/18 13:38 77 18 182/88 92 L 04/27/18 12:52 81 28 H 226/111 86 L 04/27/18 12:32 80 04/27/18 12:10 80 04/27/18 11:55 76 Intake and Output 04/27/18 04/28/18 04/28/18 22:59 06:59 14:59 Intake Total 120 Output Total 1000 Balance 120 -1000 Intake: Oral 120 Output: Urine 1000 Other: Voiding Method Bedside Commode Bedside Commode # Voids 1 Weight 97.5 kg Gen.: Patient is alert and oriented 3, no acute distress Cardiovascular: Regular rate and rhythm, S1 plus S2 Lungs: Scattered crackles bilaterally Abdomen: Soft nontender nondistended positive bowel sounds Extremities: 1+ edema Results - Laboratory Findings CBC and BMP: 04/28/18 06:11 04/28/18 06:11 PT/INR, D-dimer PT 11.8 sec (9.0-12.0) 04/27/18 11:42 INR 1.2 (<1.2) H 04/27/18 11:42 Abnormal lab findings: Abnormal Labs 04/27/18 04/27/18 04/27/18 11:42 11:42 11:42 Plt Count 117 L Lymphocytes # 0.7 L INR 1.2 H APTT 20.2 L Chloride 114 H BUN 29 H Glucose 124 H POC Glucose (mg/dL) ALT 99 H Total Protein 5.5 L Albumin 3.0 L TSH Urine Appearance Urine Protein Ur Leukocyte Esterase Urine WBC Urine Bacteria Urine Mucus 04/27/18 04/27/18 04/27/18 12:46 18:41 19:11 Plt Count Lymphocytes # INR APTT Chloride BUN Glucose POC Glucose (mg/dL) 211 H ALT Total Protein Albumin TSH 0.199 L Urine Appearance Cloudy H Urine Protein 1+ H Ur Leukocyte Esterase Moderate H Urine WBC 6 H Urine Bacteria Rare H Urine Mucus Rare H 04/28/18 04/28/18 04/28/18 06:11 06:11 06:28 Plt Count 116 L Lymphocytes # 0.4 L INR APTT Chloride 113 H BUN 23 H Glucose 144 H POC Glucose (mg/dL) 159 H ALT 76 H Total Protein 4.9 L Albumin 2.6 L TSH Urine Appearance Urine Protein Ur Leukocyte Esterase Urine WBC Urine Bacteria Urine Mucus - Diagnostic Findings Chest x-ray: report reviewed, image reviewed Assessment and Plan Assessment: Acute hypoxic respiratory failure Acute exacerbation of CHF Paroxysmal atrial fibrillation Pulmonary vascular congestion Asthma and COPD, not acutely exacerbated Lower extremity edema Moderate protein calorie malnutrition Obesity Mild thrombocytopenia O2 to maintain saturation greater than or equal to 90% Duo nebs and Pulmicort Singulair Diuresis Monitor I's and O's Serial CXR Daily weights Echocardiogram Cardiology recommendations for possible heart catheterization once CHF is resolved No need for steroids at this time from pulmonary standpoint No need for antibiotics from pulmonary standpoint Incentive spirometry and pulmonary hygiene GI and DVT prophylaxis Thank you for this consultation we'll continue to follow along
--- NOTE | 2018-04-28 11:52 | ECHOF ---
Referral Reason:check EF MEASUREMENTS -------- HEIGHT: 167.6 cm WEIGHT: 97.1 kg BP: IVSd: 1.2 cm (0.6 - 1.1) LVIDd: 3.5 cm (3.9 - 5.3) LVPWd: 1.2 cm (0.6 - 1.1) IVSs: 1.5 cm LVIDs: 1.9 cm LVPWs: 1.7 cm LAESV Index (A-L): 18.62 ml/m Ao Diam: 3.2 cm (2.0 - 3.7) LA Diam: 3.6 cm (2.7 - 3.8) MV EXCURSION: 10.933 mm (> 18.000) MV EF SLOPE: 59 mm/s (70 - 150) EPSS: 2.1 cm MV E Renato: 0.82 m/s MV DecT: 237 ms MV A Renato: 1.03 m/s MV E/A Ratio: 0.80 RAP: 15.00 mmHg RVSP: 20.82 mmHg FINDINGS -------- Undetermined rhythm. This was a technically adequate study. The left ventricular size is normal. There is mild concentric left ventricular hypertrophy. Overa ll left ventricular systolic function is normal with, an EF between 55 - 60 %. The right ventricle is normal in size and function. The left atrium is normal in size. The right atrium is normal in size. The aortic valve is trileaflet, and appears structurally normal. No aortic stenosis or regurgitation. The mitral valve is normal. Mild mitral regurgitation is present. Trace tricuspid regurgitation present. There is no evidence of pulmonary hypertension. The right ventricular systolic pressure, as measured by Doppler, is 20.82mmHg. The pulmonic valve was not well visualized. There is no pulmonic regurgitation present. The aortic root size is normal. There is a small, generalized pericardial effusion present. CONCLUSIONS -------- 1. Undetermined rhythm. 2. This was a technically adequate study. 3. The left ventricular size is normal. 4. There is mild concentric left ventricular hypertrophy. 5. Overall left ventricular systolic function is normal with, an EF between 55 - 60 %. 6. The left atrium is normal in size. 7. The aortic valve is trileaflet, and appears structurally normal. No aortic stenosis or regurgitati on. 8. Mild mitral regurgitation is present. 9. Trace tricuspid regurgitation present. 10. There is no evidence of pulmonary hypertension. 11. The pulmonic valve was not well visualized. 12. There is no pulmonic regurgitation present. 13. The aortic root size is normal. 14. There is a small, generalized pericardial effusion present. GROUP TEACHER: Fozia Nino RDCS
--- NOTE | 2018-04-28 14:01 | CDI ---
Last Revision, August 2017 Documentation Clarification Form Date: 04/28/2018 1:44:52 PM From: Ivana Son, [facility], CCDS Admit Date: 04/27/2018 1:21:00 PM Patient Name: Susan Bhatt Visit Number: [id number] Discharge Date: ATTENTION: The Clinical Documentation Specialists (CDI) and [facility] Coding Staff appreciate your assistance in clarifying documentation. Please respond to the clarification below the line at the bottom and electronically sign. The CDI & [facility] Coding staff will review the response and follow-up if needed. Please note: Queries are made part of the Legal Health Record. If you have any questions, please contact the author of this message via ITS. Linette Palacio, DO: 82 yo female, admitted with SOB & lower extremity edema. Per your pulmonary consult, asthma & COPD, not acutely exacerbated is documented. Patient history/risk factors: Paroxysmal Atrial Fibrillation, CHF, Hypertension and former smoker. Multiple medication allergies. Clinical Indicators: VS: R 25 (non labored, SOB); BP 191/90, PO 92 RA - 86 3Lnc RAD: CXR: Suspected CHF exacerbation: moderate to severe chronic emphysematous change, new cardiomegaly with small bilateral pleural effusions & likely new mild interstitial edema. Treatment: Albuterol, Atrovent INH, IV Vasotec, IV Lasix, IV Solumedrol, po Levaquin, discontinued due to interaction with Symbicort. O2 3Lnc. In your professional opinion, can you please further specify the following, if known? Acuity: o Acute Exacerbation o Status asthmaticus o Acute lower respiratory infection o COPD (specify with or without exacerbation) o Chronic obstructive bronchitis o Other, please specify o Unable to determine Severity: o Mild intermittent o Mild persistent o Moderate persistent o Severe persistent o Other, please specify o Unable to determine Form or Type: o Cough variant o Childhood o Exercise induced bronchospasm o Extrinsic allergic o Idiosyncratic o Intrinsic nonallergic o Late-onset o Mixed o Other, please specify o Unable to determine Please continue to document in your progress notes and discharge summary in order to capture severity of illness and risk of mortality. Include clinical findings that support your diagnosis. MTDD
--- NOTE | 2018-04-28 14:24 | P.PN ---
Subjective Progress Note Date: 04/28/18 This is a 82-year-old female with a known past medical history of paroxysmal atrial fibrillation, COPD, congestive heart failure and hypertension. Patient reports multiple medication ALLERGIES. Patient examined in the emergency room. She presents to the hospital with complaints of lower extremity edema and shortness of breath over the last week. Patient was recently started on gabapentin by the harness puller. She is under going rheumatology workup outpatient. Patient has been on the gabapentin for the past 3 weeks. And within the last week she's noticed increased swelling in her legs and shortness of breath. Initially she thought she was having an ALLERGIC reaction to the gabapentin. She presented to the emergency room for further evaluation and treatment. She was found to have elevated BNP 3390. Chest x-ray shows suspected CHF exacerbation on background of moderate to severe chronic emphysematous change as there is new mild cardiomegaly with small bilateral pleural effusions and likely new mild interstitial edema. She diagnosed with CHF exacerbation. Patient has ALLERGY to Lasix. Also had elevated blood pressure in the emergency room of 226/111. She was given hydrochlorothiazide and Aldactone. Also started on IV Solu-Medrol and bronchodilators for a COPD exacerbation. Pulmonary and cardiology have been consulted. Her oxygen saturation had dropped down into the 80s and she is currently on 3 L. Patient also reports urinary symptoms with urinary hesitancy. She has evidence of a UTI will be placed on Levaquin. She does penicillin and sulfa ALLERGY. Gabapentin discontinued. Patient denies any chest pain, cough, fever or chills or sweats. Denies any nausea or vomiting. Reports over the last day or 2 she' s had frequent stools but they are formed. She denies any headaches. Denies any lateralized weakness or numbness of the extremities. She does reports having some vision changes in both eyes lasting for a few minutes yesterday while looking out the window. Vision returned to normal after those few minutes. EKG normal sinus rhythm. Troponins negative. On 04/28/2018 patient is currently resting comfortably in bed on 2 L nasal cannula. 2-D echo completed showing EF between 55 and 60%. Patient denies chest pain. Does state some improvement shortness breath. Denies nausea vomiting or diarrhea. Denies any urinary burning or frequency. Objective - Vital Signs Vital signs: Vital Signs Temp 97.9 F 04/28/18 11:56 Pulse 77 04/28/18 11:56 Resp 20 04/28/18 11:56 BP 155/81 04/28/18 11:56 Pulse Ox 96 04/28/18 11:56 Intake & Output 04/27/18 04/28/18 04/28/18 18:59 06:59 18:59 Intake Total 120 Output Total 1200 Balance 120 -1200 Weight 94.347 kg 97.5 kg 97.5 kg Intake: Oral 120 Output: Urine 1200 Other: Voiding Method Bedside Commode Bedside Commode Bedside Commode # Voids 1 # Bowel Movements 1 - Exam Head normocephalic Neck supple Lungs crackles left lower lobe with faint scattered wheezing Heart regular rate and rhythm S1-S2, no rub or gallop Abdomen is soft nontender nondistended positive bowel sounds no hepatosplenomegaly Extremities no edema Neuro alert and orientated to 3 - Labs CBC & Chem 7: 04/28/18 06:11 04/28/18 06:11 Labs: Abnormal Lab Results - Last 24 Hours (Table) 04/27/18 04/27/18 04/28/18 Range/Units 18:41 19:11 06:11 Plt Count 116 L (150-450) k/uL Lymphocytes # 0.4 L (1.0-4.8) k/uL Chloride (98-107) mmol/L BUN (7-17) mg/dL Glucose (74-99) mg/dL POC Glucose (mg/dL) 211 H (75-99) mg/dL ALT (9-52) U/L Total Protein (6.3-8.2) g/dL Albumin (3.5-5.0) g/dL TSH 0.199 L (0.465-4.680) mIU/L 04/28/18 04/28/18 Range/Units 06:11 06:28 Plt Count (150-450) k/uL Lymphocytes # (1.0-4.8) k/uL Chloride 113 H (98-107) mmol/L BUN 23 H (7-17) mg/dL Glucose 144 H (74-99) mg/dL POC Glucose (mg/dL) 159 H (75-99) mg/dL ALT 76 H (9-52) U/L Total Protein 4.9 L (6.3-8.2) g/dL Albumin 2.6 L (3.5-5.0) g/dL TSH (0.465-4.680) mIU/L Microbiology - Last 24 Hours (Table) 04/27/18 12:46 Urine Culture - Preliminary Urine,Clean Catch Assessment and Plan Assessment: 1. Acute hypoxic respiratory failure likely multifactorial related to congestive heart failure exacerbation and COPD exacerbation. Patient requiring 3 L of oxygen. Pulmonary service consulted. 2. Acute on chronic congestive heart failure exacerbation: Check 2-D echo. Patient had elevated BNP on admission and CHF changes on chest x-ray. Patient has ALLERGY to Lasix. She was given Aldactone and hydrochlorothiazide in the ER. Cardiology has been consulted. 2-D echo completed showing EF 55-60%. Cardiology patient has been started on Bumex 1 mg twice a day. Coreg has been increased to 25 mg twice a day. Per cardiology once patient's heart failure resolves will plan for cardiac catheterization. 3. Acute COPD exacerbation: Patient started on IV site Medrol bronchodilators. Pulmonary service consulted. No evidence of pneumonia on chest x-ray. Steroids discontinued from pulmonology. Continue duo nebs, Pulmicort, and Singulair per pulmonology 4. History of paroxysmal atrial fibrillation: Continue Coreg and Cardizem. Not on anticoagulation at home. Patient reports having ALLERGY to Eliquis and did not want to try any other blood thinners. EKG normal sinus rhythm 5. UTI: Check urine culture. Patient currently on clindamycin 6. Hypertensive urgency on admission: Patient given hydrochlorothiazide and Aldactone in ER. Continue monitoring BP. Resume home medications. Cardiology consulted. Coreg has been increased to twice a day per cardiology. 7. Essential hypertension GI prophylaxis Pepcid and DVT prophylaxis Lovenox I performed an examination of the patient and discussed their management with the Nurse Practitioner. I have reviewed the Nurse Practitioner's notes and agree with the documented findings and plan of care
[2018-04-28 14:45] LABS: Hemoglobin A1C 6.4 % (4.0-6.0)
[2018-04-28 16:44] LABS: Glucose,Whole Blood 242 mg/dL (75-99)
[2018-04-28] MEDS: CARVEDILOL 12.5 MG TAB PO SCH (17:01)
[2018-04-28 17:07] LABS: Glucose,Whole Blood 226 mg/dL (75-99)
[2018-04-28] MEDS: BUDESONIDE 0.5 MG/2 ML NEBU INHALATION SCH (19:43)
[2018-04-28] MEDS: BUMETANIDE 0.25 MG/ML 4 ML VIAL IVP SCH (20:24)
[2018-04-28] MEDS: LATANOPROST 0.005% OPHTH DROPS 2.5 ML BTL RIGHT EYE SCH (20:24)
[2018-04-28] MEDS: MONTELUKAST 10 MG TAB PO SCH (20:26)
[2018-04-28 20:55] LABS: Glucose,Whole Blood 194 mg/dL (75-99)
[2018-04-29] MEDS ORDERED: DILTIAZEM DRIP BOLUS FROM BAG 1 MG SOLN IV ONE (01:29)
[2018-04-29] MEDS: DILTIAZEM 50 MG in SODIUM CHLORIDE 0.9% 40 ML IV SCH ×3 (02:06→10:06)
[2018-04-29] MEDS ORDERED: DIGOXIN 250 MCG/ML 2 ML AMP IVP ONE (04:31)
[2018-04-29 06:06] LABS: Glucose,Whole Blood 154 mg/dL (75-99)
[2018-04-29] MEDS: CARVEDILOL 12.5 MG TAB PO SCH ×2 (06:29→17:00)
[2018-04-29] MEDS: INSULIN ASPART 100 UNIT/ML 1 ML 10 ML VIAL SQ SCH ×4 (06:29→21:44)
[2018-04-29] MEDS: IPRATROPIUM-ALBUTEROL 3 ML NEB INHALATION SCH ×4 (06:57→19:04)
[2018-04-29] MEDS: BUDESONIDE 0.5 MG/2 ML NEBU INHALATION SCH ×2 (06:57→19:04)
[2018-04-29 07:09] LABS: Basophils % (A) 0 %; Eosinophils % (A) 0 %; HGB 12.5 gm/dL (11.4-16.0); Lymphocytes # (A) 0.6 k/uL (1.0-4.8); Lymphocytes % (A) 5 %; MCH 29.2 pg (25.0-35.0); MCHC 29.7 g/dL (31.0-37.0); MCV 98.6 fL (80.0-100.0); Macrocytosis Slight; Mean Platelet Volume 7.6; Monocytes # (A) 0.4 k/uL (0-1.0); Monocytes % (A) 4 %; Neutrophils # (A) 9.7 k/uL (1.3-7.7); Neutrophils % (A) 90 %; Platelet Count 140 k/uL (150-450); RBC 4.26 m/uL (3.80-5.40); RDW 15.2 % (11.5-15.5); WBC 10.7 k/uL (3.8-10.6)
[2018-04-29 07:28] LABS: Albumin 2.7 g/dL (3.5-5.0); Calcium 8.5 mg/dL (8.4-10.2); Potassium 3.8 mmol/L (3.5-5.1); Total Bilirubin 0.8 mg/dL (0.2-1.3); Total Protein 5.2 g/dL (6.3-8.2)
--- NOTE | 2018-04-29 09:38 | P.PN ---
Subjective Progress Note Date: 04/29/18 History of present illness: This is an 82-year-old female who presented emergency department complaining of shortness of breath. The patient states this has been getting worse over the past few weeks. She did note worsening lower extremity edema however she states that she frequently has swelling and it usually goes away. She states this time it didn't seem to go away. She does have a known history of asthma and COPD. She takes Breo and Combivent at home. The patient has a history of atrial fibrillation and congestive heart failure as well. On chest x-ray she was found to have pulmonary vascular congestion and cardiomegaly. The patient is being seen by cardiology. She denies fevers and chills. She does not smoke. She has been hemodynamically stable. The patient apparently had a positive stress test on some outpatient but does not undergo cardiac catheterization. The patient is agreeable to proceed with that at this time. She also stopped taking Eliquis despite a history of paroxysmal atrial fibrillation. She felt it was making her breathing worse. Per the patient and her daughter the patient isn't got very short of breath even with minimal exertion at home. And this had been ongoing for several weeks. Interval History: 04/29/18- patient is being seen examined and evaluated today on rounds. She is resting up in bed on 2 L of supplemental oxygen via nasal cannula. Upon examination the patient is somewhat agitated. States that she is frustrated with her health care at this point. He states she does not like people changing her medications, it is explained to the patient any change in medication is only to help treat her current health issues and is in her best interest. She has had some tachycardia this morning rates in the 120s, currently she is on a Cardizem drip for that. She states her shortness of breath is improving slightly however still gets short of breath with any activity and exertion. She has a chronic cough. Echocardiogram was obtained EF 55-60%, there is a small generalized pericardial effusion present, no evidence of pulmonary hypertension. Daughter is at bedside updated on plan of care. Objective - Vital Signs Vital signs: Vital Signs Temp 97.9 F 04/29/18 04:00 Pulse 88 04/29/18 07:13 Resp 18 04/29/18 04:00 BP 132/89 04/29/18 04:00 Pulse Ox 94 L 04/29/18 04:00 Intake & Output 04/28/18 04/29/18 04/29/18 18:59 06:59 18:59 Intake Total 180 1042.333 Output Total 1200 2900 Balance -1020 -1857.667 Weight 97.5 kg 97.3 kg Intake: Intake, IV Titration 22.333 Amount Diltiazem 50 mg In Sodium 22.333 Chloride 0.9% 40 ml @ 10 MG/HR 10 mls/hr IV .Q5H [facility] Rx#:[id number] Oral 180 1020 Output: Urine 1200 2900 Other: Voiding Method Bedside Commode Bedside Commode # Voids 1 # Bowel Movements 1 - Exam Gen.: Patient is alert and oriented 3, no acute distress Cardiovascular: afib with RVR, S1, S2 Lungs: Bases dimished with some faint Scattered crackles bilaterally Abdomen: Soft nontender nondistended positive bowel sounds Extremities: 1-2+ edema - Labs CBC & Chem 7: 04/29/18 06:22 04/29/18 06:22 Labs: Abnormal Lab Results - Last 24 Hours (Table) 04/27/18 04/28/18 04/28/18 Range/Units 11:42 11:56 17:06 WBC (3.8-10.6) k/uL MCHC (31.0-37.0) g/dL Plt Count (150-450) k/uL Neutrophils # (1.3-7.7) k/uL Lymphocytes # (1.0-4.8) k/uL Chloride (98-107) mmol/L BUN (7-17) mg/dL Glucose (74-99) mg/dL POC Glucose (mg/dL) 242 H 226 H (75-99) mg/dL Hemoglobin A1c 6.4 H (4.0-6.0) % ALT (9-52) U/L Total Protein (6.3-8.2) g/dL Albumin (3.5-5.0) g/dL 04/28/18 04/29/18 04/29/18 Range/Units 20:52 06:03 06:22 WBC 10.7 H (3.8-10.6) k/uL MCHC 29.7 L (31.0-37.0) g/dL Plt Count 140 L (150-450) k/uL Neutrophils # 9.7 H (1.3-7.7) k/uL Lymphocytes # 0.6 L (1.0-4.8) k/uL Chloride (98-107) mmol/L BUN (7-17) mg/dL Glucose (74-99) mg/dL POC Glucose (mg/dL) 194 H 154 H (75-99) mg/dL Hemoglobin A1c (4.0-6.0) % ALT (9-52) U/L Total Protein (6.3-8.2) g/dL Albumin (3.5-5.0) g/dL 04/29/18 Range/Units 06:22 WBC (3.8-10.6) k/uL MCHC (31.0-37.0) g/dL Plt Count (150-450) k/uL Neutrophils # (1.3-7.7) k/uL Lymphocytes # (1.0-4.8) k/uL Chloride 111 H (98-107) mmol/L BUN 34 H (7-17) mg/dL Glucose 157 H (74-99) mg/dL POC Glucose (mg/dL) (75-99) mg/dL Hemoglobin A1c (4.0-6.0) % ALT 62 H (9-52) U/L Total Protein 5.2 L (6.3-8.2) g/dL Albumin 2.7 L (3.5-5.0) g/dL Microbiology - Last 24 Hours (Table) 04/27/18 12:46 Urine Culture - Preliminary Urine,Clean Catch Gram Neg Bacilli Assessment and Plan Assessment: Assessment: Acute hypoxic respiratory failure Acute exacerbation of CHF Paroxysmal atrial fibrillation Pulmonary vascular congestion COPD, not acutely exacerbated Chronic moderate to severe persistent asthma not acutely exacerbated Lower extremity edema Moderate protein calorie malnutrition Obesity Mild thrombocytopenia Plan Medications reviewed and will be continued as ordered O2 to maintain saturation greater than or equal to 90% Home oxygen assessment prior to discharge Duo nebs and Pulmicort Singulair Diuresis Monitor I's and O's Repeat CXR in AM Daily weights Echocardiogram Cardiology recommendations for possible heart catheterization once CHF is resolved Echocardiogram reviewed No need for steroids at this time from pulmonary standpoint No need for antibiotics from pulmonary standpoint Incentive spirometry and pulmonary hygiene GI and DVT prophylaxis We will continue to follow labs/reports and adjust treatment as necessary I performed an examination of the patient and discussed their management with the nurse practitioner. I have reviewed the nurse practitioner's note and agree with the documented findings and plan of care.
[2018-04-29] MEDS: BUMETANIDE 0.25 MG/ML 4 ML VIAL IVP SCH (09:54)
[2018-04-29] MEDS: ENOXAPARIN 40 MG/0.4 ML SYRINGE SQ SCH (09:56)
[2018-04-29] MEDS: NAPROXEN 250 MG TAB PO SCH (09:59)
[2018-04-29] MEDS: CLINDAMYCIN 150 MG CAP PO SCH ×3 (10:00→21:44)
[2018-04-29] MEDS: FAMOTIDINE 20 MG TAB PO SCH (10:00)
[2018-04-29] MEDS: CHOLECALCIFEROL 1,000 UNIT TAB PO SCH (10:00)
--- NOTE | 2018-04-29 10:55 | CDI ---
Last Revision, August 2017 Documentation Clarification Form Date: 04/29/2018 10:44:44 AM From: Ivana DuranSonGOLDEN, CCDS Admit Date: 04/27/2018 1:21:00 PM Patient Name: Susan Bhatt Visit Number: [id number] Discharge Date: ATTENTION: The Clinical Documentation Specialists (CDI) and [facility] Coding Staff appreciate your assistance in clarifying documentation. Please respond to the clarification below the line at the bottom and electronically sign. The CDI & [facility] Coding staff will review the response and follow-up if needed. Please note: Queries are made part of the Legal Health Record. If you have any questions, please contact the author of this message via ITS. Ada Alicia MD 82 yo female, admit with lower extremity edema & SOB. Per the Cardiology consult: "Acute hypoxic respiratory failure, likely secondary congestive heart failure exacerbation, acute on chronic, and COPD exacerbation." History/Risk Factors: Heart Failure, COPD, hypertension. Atrial Fibrillation & former smoker. Clinical Indicators: VS: R 25 (SOB), BP 191/90, PO 92 RA-86 3Lnc. BNP: 3390 Echocardiogram Results: EF 55-60% systolic wnl. Mild LVH, Mild MR, trace TR, no pulmonary hypertension, small pericardial effusion. Chest X Ray: Suspected CHF exacerbation on moderate to severe chronic emphysematous change, new mild cardiomegaly w/small bilateral pleural effusions & new mild interstitial edema. Treatment: Heart Failure clinical pathway, Heart failure coordinator, IV Lanoxin, IV Cardizem, IV Bumex, Pulmicort INH, O2 3Lnc In your professional opinion, can you please clarify the acuity and type of CHF if known? Systolic Heart Failure: o Acute o Chronic o Acute on Chronic Diastolic Heart Failure: o Acute o Chronic o Acute on Chronic Systolic & Diastolic Heart Failure: o Acute o Chronic o Acute on Chronic Heart Failure Unable to Determine Other, please specify: Please continue to document in your progress notes and discharge summary in order to capture severity of illness and risk of mortality. Include clinical findings that support your diagnosis. MTDD
[2018-04-29 11:48] LABS: Glucose,Whole Blood 153 mg/dL (75-99)
[2018-04-29] MEDS: BUMETANIDE 12 MG in DEXTROSE 5% IN WATER 192 ML IV SCH ×2 (12:35)
--- NOTE | 2018-04-29 13:38 | P.PN ---
Subjective Progress Note Date: 04/29/18 This is a 82-year-old female with a known past medical history of paroxysmal atrial fibrillation, COPD, congestive heart failure and hypertension. Patient reports multiple medication ALLERGIES. Patient examined in the emergency room. She presents to the hospital with complaints of lower extremity edema and shortness of breath over the last week. Patient was recently started on gabapentin by the nut tapper. She is under going rheumatology workup outpatient. Patient has been on the gabapentin for the past 3 weeks. And within the last week she's noticed increased swelling in her legs and shortness of breath. Initially she thought she was having an ALLERGIC reaction to the gabapentin. She presented to the emergency room for further evaluation and treatment. She was found to have elevated BNP 3390. Chest x-ray shows suspected CHF exacerbation on background of moderate to severe chronic emphysematous change as there is new mild cardiomegaly with small bilateral pleural effusions and likely new mild interstitial edema. She diagnosed with CHF exacerbation. Patient has ALLERGY to Lasix. Also had elevated blood pressure in the emergency room of 226/111. She was given hydrochlorothiazide and Aldactone. Also started on IV Solu-Medrol and bronchodilators for a COPD exacerbation. Pulmonary and cardiology have been consulted. Her oxygen saturation had dropped down into the 80s and she is currently on 3 L. Patient also reports urinary symptoms with urinary hesitancy. She has evidence of a UTI will be placed on Levaquin. She does penicillin and sulfa ALLERGY. Gabapentin discontinued. Patient denies any chest pain, cough, fever or chills or sweats. Denies any nausea or vomiting. Reports over the last day or 2 she' s had frequent stools but they are formed. She denies any headaches. Denies any lateralized weakness or numbness of the extremities. She does reports having some vision changes in both eyes lasting for a few minutes yesterday while looking out the window. Vision returned to normal after those few minutes. EKG normal sinus rhythm. Troponins negative. On 04/28/2018 patient is currently resting comfortably in bed on 2 L nasal cannula. 2-D echo completed showing EF between 55 and 60%. Patient denies chest pain. Does state some improvement shortness breath. Denies nausea vomiting or diarrhea. Denies any urinary burning or frequency. 04/29/2018 patient was apparently agitated this morning. She has calmed down this afternoon. Patient was placed on a Cardizem drip for elevated heart rate in the 120s this morning. She is also on Bumex for her CHF exacerbation. Echo was obtained showing an EF of 55-60%, there is a small generalized pericardial effusion present. No pulmonary hypertension. Patient is on 2 L satting at 96% Objective - Vital Signs Vital signs: Vital Signs Temp 97.0 F L 04/29/18 12:00 Pulse 110 H 04/29/18 12:00 Resp 20 04/29/18 12:00 BP 121/73 04/29/18 12:00 Pulse Ox 96 04/29/18 12:00 Intake & Output 04/28/18 04/29/18 04/29/18 18:59 06:59 18:59 Intake Total 180 1042.333 168 Output Total 1200 2900 Balance -1020 -1857.667 168 Weight 97.5 kg 97.3 kg Intake: Intake, IV Titration 22.333 50 Amount Diltiazem 50 mg In Sodium 22.333 50 Chloride 0.9% 40 ml @ 10 MG/HR 10 mls/hr IV .Q5H [facility] Rx#:[id number] Oral 180 1020 118 Output: Urine 1200 2900 Other: Voiding Method Bedside Commode Bedside Commode Bedside Commode # Voids 1 # Bowel Movements 1 - Exam Head normocephalic Neck supple Lungs crackles at bases bilaterally Heart regular rate and rhythm S1-S2, no rub or gallop Abdomen is soft nontender nondistended positive bowel sounds no hepatosplenomegaly Extremities positive lower extremity edema Neuro alert and orientated to 3 - Labs CBC & Chem 7: 04/29/18 06:22 04/29/18 06:22 Labs: Abnormal Lab Results - Last 24 Hours (Table) 04/27/18 04/28/18 04/28/18 Range/Units 11:42 11:56 17:06 WBC (3.8-10.6) k/uL MCHC (31.0-37.0) g/dL Plt Count (150-450) k/uL Neutrophils # (1.3-7.7) k/uL Lymphocytes # (1.0-4.8) k/uL Chloride (98-107) mmol/L BUN (7-17) mg/dL Glucose (74-99) mg/dL POC Glucose (mg/dL) 242 H 226 H (75-99) mg/dL Hemoglobin A1c 6.4 H (4.0-6.0) % ALT (9-52) U/L Total Protein (6.3-8.2) g/dL Albumin (3.5-5.0) g/dL 04/28/18 04/29/18 04/29/18 Range/Units 20:52 06:03 06:22 WBC 10.7 H (3.8-10.6) k/uL MCHC 29.7 L (31.0-37.0) g/dL Plt Count 140 L (150-450) k/uL Neutrophils # 9.7 H (1.3-7.7) k/uL Lymphocytes # 0.6 L (1.0-4.8) k/uL Chloride (98-107) mmol/L BUN (7-17) mg/dL Glucose (74-99) mg/dL POC Glucose (mg/dL) 194 H 154 H (75-99) mg/dL Hemoglobin A1c (4.0-6.0) % ALT (9-52) U/L Total Protein (6.3-8.2) g/dL Albumin (3.5-5.0) g/dL 04/29/18 04/29/18 Range/Units 06:22 11:47 WBC (3.8-10.6) k/uL MCHC (31.0-37.0) g/dL Plt Count (150-450) k/uL Neutrophils # (1.3-7.7) k/uL Lymphocytes # (1.0-4.8) k/uL Chloride 111 H (98-107) mmol/L BUN 34 H (7-17) mg/dL Glucose 157 H (74-99) mg/dL POC Glucose (mg/dL) 153 H (75-99) mg/dL Hemoglobin A1c (4.0-6.0) % ALT 62 H (9-52) U/L Total Protein 5.2 L (6.3-8.2) g/dL Albumin 2.7 L (3.5-5.0) g/dL Microbiology - Last 24 Hours (Table) 04/27/18 12:46 Urine Culture - Preliminary Urine,Clean Catch Gram Neg Bacilli Assessment and Plan Assessment: 1. Acute hypoxic respiratory failure likely related to congestive heart failure exacerbation 2. Acute on chronic diastolic congestive heart failure exacerbation: Echo shows an EF of 55-60% and a small generalized pericardial effusion. Patient had elevated BNP on admission and CHF changes on chest x-ray. Patient has ALLERGY to Lasix. She was given Aldactone and hydrochlorothiazide in the ER. Seen by cardiology they've placed her on a Bumex drip 3. COPD: No evidence of exacerbation. Patient seen by pulmonary service. They 've discontinued the IV steroids. No evidence of pneumonia on chest x-ray 4. History of paroxysmal atrial fibrillation: Continue Coreg and Cardizem. Not on anticoagulation at home. Patient reports having ALLERGY to Eliquis and did not want to try any other blood thinners. EKG normal sinus rhythm 5. UTI: Urine culture gram-negative bacilli. Continue clindamycin 6. Hypertensive urgency on admission: Patient given hydrochlorothiazide and Aldactone in ER. Continue monitoring BP. Resume home medications. Followed by cardiology. They have increased Coreg to twice a day 7. Essential hypertension 8. Atrial fibrillation with rapid ventricular response: Cardiology has placed patient on Cardizem drip and was given a dose of IV digoxin. Continue to monitor GI prophylaxis Pepcid and DVT prophylaxis Lovenox I performed an examination of the patient and discussed their management with the physician Wire Annealer. I have reviewed the Physician Wire Annealer's notes and agree with the documented findings and plan of care
--- NOTE | 2018-04-29 15:22 | P.PN ---
Subjective Progress Note Date: 04/29/18 This is a pleasant 82-year-old female who follows regularly with Dr. Holliday in the office. She has a known history of hypertension, COPD, proximal atrial fibrillation, patient states she was initiated on Eliquis in the past by Dr. Holliday, but had difficulty in breathing and for this reason she stopped it. Patient has multiple multiple ALLERGIES. She presents to the hospital on this occasion with symptoms of progressively worsening peripheral edema which she states has been going on for the past one week or so, she also states for the past few days she's been very short of breath, to the point where she feels she is unable to breathe at all. Her shortness of breath mainly occurs with exertion, even walking a very short distance to the bathroom. At rest her symptoms seemed to subside. Patient also states that she's been getting some discomfort in her upper back area between her scapula which she has been attributing to muscle pain. According to the patient, she states she had a stress test in the office performed by Dr. Holliday he told the patient that there was a shadow and recommended she undergo cardiac catheterization, patient decided at that time because it was only a shadow not to proceed with heart catheterization. Patient was recently started on a medication called gabapentin approximately 3 weeks ago, when the symptoms of swelling started in both legs she thought initially it was from that, because symptoms continued to worsen and she had no relief with her breathing treatments she came to the ER. Chest x-ray on admission here revealed CHF exacerbation on the background of moderate to severe emphysema, small bilateral pleural effusions were also noted. EKG on arrival here shows a normal sinus rhythm. Blood pressure on arrival 190/90, heart rate in the 70s, 92% on room air. Blood pressure this morning 150/90 with a heart rate in the 90s, 94% on 2 L of oxygen. White blood cell count is normal, hemoglobin 12.2, platelet count 116. Sodium 141, potassium 3.9, BUN 23, creatinine 0.7. Troponins have been negative 3. BNP level 3390. TSH level 0.19. The patient does have an ALLERGY to Lasix, she was given a dose of hydrochlorothiazide in the emergency room as well as Aldactone. 019. 04/29/2018 Patient seen and examined this morning, continues to feel somewhat short of breath. She is currently in atrial fibrillation with a moderately rapid ventricular response, blood pressure 120/70, heart rate in the low 100s to 110 range. 96% on nasal cannula at 2 L. White blood cell count 10.7, hemoglobin 12.5, platelet count 140. Sodium 141, potassium 3.8, BUN 34, creatinine 0.9. Patient appears to diurese well through the night last night although her weight is not reflective of the cyst morning. She was somewhat hesitant to take the Bumex because of her Lasix ALLERGY, she has had no reaction and BuSpar. Dr. Holliday's recommendation is to initiate Bumex drip today. Objective - Vital Signs Vital signs: Vital Signs Temp 97.0 F L 04/29/18 12:00 Pulse 110 H 04/29/18 12:00 Resp 20 04/29/18 12:00 BP 121/73 04/29/18 12:00 Pulse Ox 96 04/29/18 12:00 Intake & Output 04/28/18 04/29/18 04/29/18 18:59 06:59 18:59 Intake Total 180 1042.333 708 Output Total 1200 2900 Balance -1020 -1857.667 708 Weight 97.5 kg 97.3 kg Intake: Intake, IV Titration 22.333 50 Amount Diltiazem 50 mg In Sodium 22.333 50 Chloride 0.9% 40 ml @ 10 MG/HR 10 mls/hr IV .Q5H [facility] Rx#:[id number] Oral 180 1020 658 Output: Urine 1200 2900 Other: Voiding Method Bedside Commode Bedside Commode Bedside Commode # Voids 1 1 # Bowel Movements 1 - Exam PHYSICAL EXAMINATION: GENERAL: 82-year-old female in no acute distress at the time of my examination HEENT: Head is atraumatic, normocephalic. Pupils equal, round. Sclera anicteric. Conjunctiva are clear. Mucous membranes of the mouth are moist. Neck is supple. There is elevated jugular venous pressure. No carotid bruit is heard. HEART EXAMINATION: Heart S1 S2 1 systolic murmur is heard. CHEST EXAMINATION: Lungs reveal diminished air entry bilaterally with rales heard at the bases ABDOMEN: Soft, nontender. Bowel sounds are heard. No organomegaly noted. EXTREMITIES:[ 2+ peripheral pulses with 2+ evidence of peripheral edema NEUROLOGIC patient is awake, alert and oriented X3 - Labs CBC & Chem 7: 04/29/18 06:22 04/29/18 06:22 Labs: Abnormal Lab Results - Last 24 Hours (Table) 04/27/18 04/28/18 04/28/18 Range/Units 11:42 11:56 17:06 WBC (3.8-10.6) k/uL MCHC (31.0-37.0) g/dL Plt Count (150-450) k/uL Neutrophils # (1.3-7.7) k/uL Lymphocytes # (1.0-4.8) k/uL Chloride (98-107) mmol/L BUN (7-17) mg/dL Glucose (74-99) mg/dL POC Glucose (mg/dL) 242 H 226 H (75-99) mg/dL Hemoglobin A1c 6.4 H (4.0-6.0) % ALT (9-52) U/L Total Protein (6.3-8.2) g/dL Albumin (3.5-5.0) g/dL 04/28/18 04/29/18 04/29/18 Range/Units 20:52 06:03 06:22 WBC 10.7 H (3.8-10.6) k/uL MCHC 29.7 L (31.0-37.0) g/dL Plt Count 140 L (150-450) k/uL Neutrophils # 9.7 H (1.3-7.7) k/uL Lymphocytes # 0.6 L (1.0-4.8) k/uL Chloride (98-107) mmol/L BUN (7-17) mg/dL Glucose (74-99) mg/dL POC Glucose (mg/dL) 194 H 154 H (75-99) mg/dL Hemoglobin A1c (4.0-6.0) % ALT (9-52) U/L Total Protein (6.3-8.2) g/dL Albumin (3.5-5.0) g/dL 04/29/18 04/29/18 Range/Units 06:22 11:47 WBC (3.8-10.6) k/uL MCHC (31.0-37.0) g/dL Plt Count (150-450) k/uL Neutrophils # (1.3-7.7) k/uL Lymphocytes # (1.0-4.8) k/uL Chloride 111 H (98-107) mmol/L BUN 34 H (7-17) mg/dL Glucose 157 H (74-99) mg/dL POC Glucose (mg/dL) 153 H (75-99) mg/dL Hemoglobin A1c (4.0-6.0) % ALT 62 H (9-52) U/L Total Protein 5.2 L (6.3-8.2) g/dL Albumin 2.7 L (3.5-5.0) g/dL Microbiology - Last 24 Hours (Table) 04/27/18 12:46 Urine Culture - Preliminary Urine,Clean Catch Gram Neg Bacilli Assessment and Plan Plan: Assessment and plan #1 acute hypoxic respiratory failure, likely secondary congestive heart failure exacerbation, diastolic, acute on chronic, and COPD exacerbation. . #2 COPD history #3 paroxysmal atrial fibrillation, patient had stopped taking Eliquis because of symptoms of shortness of breath. #4 hypertensive urgency in a patient with history of hypertension #5 prior history of smoking #6 symptoms of exertional shortness of breath, possible angina. Patient was told to have had a positive stress test in the office and recommended to undergo cardiac catheterization which she refused at that time. Troponins negative 3. Plan Patient did have an echocardiogram with Doppler study performed today which revealed an ejection fraction of 55-60%. Continues to have significant edema. We will discontinue the IV push. The extensor the patient on a Bumex drip today. Continue to monitor intake and output along with daily weights. We'll also discontinue the Cardizem drip and start the patient on some oral Cardizem. Daily lytes BUN and creatinine. DNP note has been reviewed, I agree with a documented findings and plan of care. Patient was seen and examined.
[2018-04-29 16:34] LABS: Glucose,Whole Blood 184 mg/dL (75-99)
[2018-04-29] MEDS: DILTIAZEM ORAL 60 MG TAB PO SCH ×2 (17:01→21:44)
[2018-04-29] MEDS: LATANOPROST 0.005% OPHTH DROPS 2.5 ML BTL RIGHT EYE SCH (19:54)
[2018-04-29] MEDS: MONTELUKAST 10 MG TAB PO SCH (19:54)
[2018-04-29 21:07] LABS: Glucose,Whole Blood 153 mg/dL (75-99)
[2018-04-30] MEDS: DILTIAZEM 50 MG in SODIUM CHLORIDE 0.9% 40 ML IV SCH ×5 (05:19→21:17)
[2018-04-30 06:17] LABS: Glucose,Whole Blood 127 mg/dL (75-99)
[2018-04-30 06:25] LABS: Basophils % (A) 0 %; Eosinophils % (A) 0 %; HGB 13.8 gm/dL (11.4-16.0); Lymphocytes # (A) 0.9 k/uL (1.0-4.8); Lymphocytes % (A) 10 %; MCH 31.1 pg (25.0-35.0); MCHC 32.2 g/dL (31.0-37.0); MCV 96.6 fL (80.0-100.0); Mean Platelet Volume 7.7; Monocytes # (A) 0.5 k/uL (0-1.0); Monocytes % (A) 5 %; Neutrophils # (A) 7.4 k/uL (1.3-7.7); Neutrophils % (A) 83 %; Platelet Count 144 k/uL (150-450); RBC 4.45 m/uL (3.80-5.40); WBC 8.9 k/uL (3.8-10.6)
[2018-04-30] MEDS: INSULIN ASPART 100 UNIT/ML 1 ML 10 ML VIAL SQ SCH ×4 (06:43→21:01)
[2018-04-30 06:45] LABS: Albumin 2.8 g/dL (3.5-5.0); Calcium 8.6 mg/dL (8.4-10.2); Potassium 3.5 mmol/L (3.5-5.1); Total Bilirubin 0.9 mg/dL (0.2-1.3); Total Protein 5.3 g/dL (6.3-8.2)
--- NOTE | 2018-04-30 06:51 | XR ---
EXAMINATION TYPE: XR chest 2V DATE OF EXAM: 04/30/2018 COMPARISON: Chest x-ray from 3 days ago. CTA chest October 01, 2012 HISTORY: Pneumonia and shortness of breath TECHNIQUE: Frontal and lateral views of the chest are obtained. FINDINGS: Underlying emphysematous change is redemonstrated. There is no new suspicious focal air spa ce opacity or pneumothorax seen. The cardiac silhouette size is stable and mildly enlarged. Tiny bi lateral pleural effusions seen on prior study lateral view are improved with resolution on current st udy. The osseous structures remain demineralized. Degenerative change right glenohumeral joint is redemonstrated. IMPRESSION: Redemonstration of chronic emphysematous change and mild cardiomegaly with interval reso lution of tiny bilateral pleural effusions. No new suspicious focal infiltrate is present.
[2018-04-30] MEDS: CARVEDILOL 12.5 MG TAB PO SCH (07:00)
[2018-04-30] MEDS: IPRATROPIUM-ALBUTEROL 3 ML NEB INHALATION SCH ×4 (09:04→19:22)
[2018-04-30] MEDS: BUDESONIDE 0.5 MG/2 ML NEBU INHALATION SCH ×2 (09:13→19:23)
[2018-04-30] MEDS: ENOXAPARIN 40 MG/0.4 ML SYRINGE SQ SCH (09:37)
[2018-04-30] MEDS: DILTIAZEM ORAL 60 MG TAB PO SCH (09:43)
[2018-04-30] MEDS: CLINDAMYCIN 150 MG CAP PO SCH ×3 (09:44→21:02)
[2018-04-30] MEDS: CHOLECALCIFEROL 1,000 UNIT TAB PO SCH (09:44)
[2018-04-30] MEDS: FAMOTIDINE 20 MG TAB PO SCH (09:44)
--- NOTE | 2018-04-30 10:13 | P.PN ---
Subjective Progress Note Date: 04/30/18 History of present illness: This is an 82-year-old female who presented emergency department complaining of shortness of breath. The patient states this has been getting worse over the past few weeks. She did note worsening lower extremity edema however she states that she frequently has swelling and it usually goes away. She states this time it didn't seem to go away. She does have a known history of asthma and COPD. She takes Breo and Combivent at home. The patient has a history of atrial fibrillation and congestive heart failure as well. On chest x-ray she was found to have pulmonary vascular congestion and cardiomegaly. The patient is being seen by cardiology. She denies fevers and chills. She does not smoke. She has been hemodynamically stable. The patient apparently had a positive stress test on some outpatient but does not undergo cardiac catheterization. The patient is agreeable to proceed with that at this time. She also stopped taking Eliquis despite a history of paroxysmal atrial fibrillation. She felt it was making her breathing worse. Per the patient and her daughter the patient isn't got very short of breath even with minimal exertion at home. And this had been ongoing for several weeks. Interval History: 04/29/18- patient is being seen examined and evaluated today on rounds. She is resting up in bed on 2 L of supplemental oxygen via nasal cannula. Upon examination the patient is somewhat agitated. States that she is frustrated with her health care at this point. He states she does not like people changing her medications, it is explained to the patient any change in medication is only to help treat her current health issues and is in her best interest. She has had some tachycardia this morning rates in the 120s, currently she is on a Cardizem drip for that. She states her shortness of breath is improving slightly however still gets short of breath with any activity and exertion. She has a chronic cough. Echocardiogram was obtained EF 55-60%, there is a small generalized pericardial effusion present, no evidence of pulmonary hypertension. Daughter is at bedside updated on plan of care. 04/30/18- patient is being seen examined and evaluated today on rounds he is resting up in bed on 2 L of supplemental oxygen via nasal cannula. She did undergo a chest x-ray this morning that did read demonstrate chronic emphysematous changes and mild cardiomegaly with interval resolution of tiny bilateral pleural effusions. No new suspicious focal infiltrate was present. Patient does state her breathing is somewhat improved today. She is less short of breath. She has been put on a Bumex drip and continues on her Cardizem drip as well. She is afebrile no further complaints. Objective - Vital Signs Vital signs: Vital Signs Temp 97.9 F 04/30/18 08:00 Pulse 100 04/30/18 09:14 Resp 18 04/30/18 08:00 BP 95/71 04/30/18 08:00 Pulse Ox 96 04/30/18 03:42 Intake & Output 04/29/18 04/30/18 04/30/18 18:59 06:59 18:59 Intake Total 948 420 240 Output Total 3500 Balance 948 -3080 240 Weight 94 kg Intake: Intake, IV Titration 50 Amount Diltiazem 50 mg In Sodium 50 Chloride 0.9% 40 ml @ 10 MG/HR 10 mls/hr IV .Q5H [facility] Rx#:[id number] Oral 898 420 240 Output: Urine 3500 Other: Voiding Method Bedside Commode Bedside Commode # Voids 1 2 # Bowel Movements 1 - Exam Gen.: Patient is alert and oriented 3, no acute distress Cardiovascular: afib with RVR, S1, S2 Lungs: Bases dimished with some faint Scattered crackles bilaterally Abdomen: Soft nontender nondistended positive bowel sounds Extremities: 1-2+ edema - Labs CBC & Chem 7: 04/30/18 06:01 04/30/18 06:01 Labs: Abnormal Lab Results - Last 24 Hours (Table) 04/29/18 04/29/18 04/29/18 Range/Units 11:47 16:32 21:03 Plt Count (150-450) k/uL Lymphocytes # (1.0-4.8) k/uL Carbon Dioxide (22-30) mmol/L BUN (7-17) mg/dL Creatinine (0.52-1.04) mg/dL Glucose (74-99) mg/dL POC Glucose (mg/dL) 153 H 184 H 153 H (75-99) mg/dL ALT (9-52) U/L Total Protein (6.3-8.2) g/dL Albumin (3.5-5.0) g/dL 04/30/18 04/30/1818 Range/Units 06:01 06:01 06:15 Plt Count 144 L (150-450) k/uL Lymphocytes # 0.9 L (1.0-4.8) k/uL Carbon Dioxide 31 H (22-30) mmol/L BUN 49 H (7-17) mg/dL Creatinine 1.20 H (0.52-1.04) mg/dL Glucose 130 H (74-99) mg/dL POC Glucose (mg/dL) 127 H (75-99) mg/dL ALT 58 H (9-52) U/L Total Protein 5.3 L (6.3-8.2) g/dL Albumin 2.8 L (3.5-5.0) g/dL Microbiology - Last 24 Hours (Table) 04/27/18 12:46 Urine Culture - Final Urine,Clean Catch Escherichia coli Assessment and Plan Assessment: Assessment: Acute hypoxic respiratory failure Acute exacerbation of CHF Paroxysmal atrial fibrillation Pulmonary vascular congestion COPD, not acutely exacerbated Chronic moderate to severe persistent asthma not acutely exacerbated Lower extremity edema Moderate protein calorie malnutrition Obesity Mild thrombocytopenia Plan Medications reviewed and will be continued as ordered O2 to maintain saturation greater than or equal to 90% Home oxygen assessment prior to discharge Duo nebs and Pulmicort Singulair Diuresis, currently on Bumex drip and Cardizem drip Monitor I's and O's Repeat CXR in AM Daily weights Echocardiogram Cardiology recommendations for possible heart catheterization once CHF is resolved Echocardiogram reviewed No need for steroids at this time from pulmonary standpoint No need for antibiotics from pulmonary standpoint Incentive spirometry and pulmonary hygiene GI and DVT prophylaxis We will continue to follow labs/reports and adjust treatment as necessary I performed an examination of the patient and discussed their management with the nurse practitioner. I have reviewed the nurse practitioner's note and agree with the documented findings and plan of care.
--- NOTE | 2018-04-30 10:17 | P.PN ---
Subjective Progress Note Date: 04/30/18 Principal diagnosis: Congestive heart failure secondary to diastolic dysfunction This is a pleasant 82-year-old female patient who I do follow in the office as an outpatient with a past medical history significant for chronic lung disease, diastolic congestive heart failure, paroxysmal atrial fibrillation , as well as hypertension, was admitted to the hospital with acute on chronic respiratory failure secondary to congestive heart failure exacerbation. Also the patient was found to be in A. fib with RVR. Yesterday the patient was started on Bumex drip. She does have an extensive list of ALLERGY including Lasix and for that reason we started the patient on Bumex drip. I'll follow-up with her today, she is feeling better indeterminable shortness of breath. She did lose significant amount of weight overnight. She has putting significant amount of urine as well. Her physical examination in terms of lungs is better but she still have extensive bilateral lower extremities edema. The creatinine is a slightly elevated but she is hypotensive as well. Because of that I am going to DC the coring and start the patient on metoprolol. She continues to be on Cardizem and drip. I would DC the Cardizem by mouth. The patient refuses to be on any oral anticoagulation. We'll continue monitor the kidney function and electrolytes and if the kidney function is worse by tomorrow I will go ahead and decrease the Bumex drip or switch her to Bumex IV. Objective - Vital Signs Vital signs: Vital Signs Temp 97.9 F 04/30/18 08:00 Pulse 100 04/30/18 09:14 Resp 18 04/30/18 08:00 BP 95/71 04/30/18 08:00 Pulse Ox 96 04/30/18 03:42 Intake & Output 04/29/18 04/30/18 04/30/18 18:59 06:59 18:59 Intake Total 948 420 240 Output Total 3500 Balance 948 -3080 240 Weight 94 kg Intake: Intake, IV Titration 50 Amount Diltiazem 50 mg In Sodium 50 Chloride 0.9% 40 ml @ 10 MG/HR 10 mls/hr IV .Q5H [facility] Rx#:[id number] Oral 898 420 240 Output: Urine 3500 Other: Voiding Method Bedside Commode Bedside Commode # Voids 1 2 # Bowel Movements 1 - Constitutional General appearance: Present: no acute distress - Respiratory Respiratory: bilateral: CTA - Cardiovascular Rhythm: irregularly irregular Heart sounds: normal: S1, S2 - Labs CBC & Chem 7: 04/30/18 06:01 04/30/18 06:01 Labs: Abnormal Lab Results - Last 24 Hours (Table) 04/29/18 04/29/18 04/29/18 Range/Units 11:47 16:32 21:03 Plt Count (150-450) k/uL Lymphocytes # (1.0-4.8) k/uL Carbon Dioxide (22-30) mmol/L BUN (7-17) mg/dL Creatinine (0.52-1.04) mg/dL Glucose (74-99) mg/dL POC Glucose (mg/dL) 153 H 184 H 153 H (75-99) mg/dL ALT (9-52) U/L Total Protein (6.3-8.2) g/dL Albumin (3.5-5.0) g/dL 04/30/18 04/30/18 04/30/18 Range/Units 06:01 06:01 06:15 Plt Count 144 L (150-450) k/uL Lymphocytes # 0.9 L (1.0-4.8) k/uL Carbon Dioxide 31 H (22-30) mmol/L BUN 49 H (7-17) mg/dL Creatinine 1.20 H (0.52-1.04) mg/dL Glucose 130 H (74-99) mg/dL POC Glucose (mg/dL) 127 H (75-99) mg/dL ALT 58 H (9-52) U/L Total Protein 5.3 L (6.3-8.2) g/dL Albumin 2.8 L (3.5-5.0) g/dL Microbiology - Last 24 Hours (Table) 04/27/18 12:46 Urine Culture - Final Urine,Clean Catch Escherichia coli Assessment and Plan Assessment: Assessment #1 acute hypoxic respiratory failure #2 congestive heart failure exacerbation secondary to diastolic dysfunction #3 chronic lung disease #4 hypertension #5 acute renal failure Plan #1 continue the Bumex drip #2 DC Coreg and start the patient on metoprolol #3 continue monitor the kidney function and electrolytes #4 the patient is not on any nephrotoxic medications #5 follow-up with the patient. Thank you for allowing us participate in her care
[2018-04-30 11:47] LABS: Glucose,Whole Blood 165 mg/dL (75-99)
--- NOTE | 2018-04-30 13:06 | P.PN ---
Subjective Progress Note Date: 04/30/18 This is a 82-year-old female with a known past medical history of paroxysmal atrial fibrillation, COPD, congestive heart failure and hypertension. Patient reports multiple medication ALLERGIES. Patient examined in the emergency room. She presents to the hospital with complaints of lower extremity edema and shortness of breath over the last week. Patient was recently started on gabapentin by the design assistant. She is under going rheumatology workup outpatient. Patient has been on the gabapentin for the past 3 weeks. And within the last week she's noticed increased swelling in her legs and shortness of breath. Initially she thought she was having an ALLERGIC reaction to the gabapentin. She presented to the emergency room for further evaluation and treatment. She was found to have elevated BNP 3390. Chest x-ray shows suspected CHF exacerbation on background of moderate to severe chronic emphysematous change as there is new mild cardiomegaly with small bilateral pleural effusions and likely new mild interstitial edema. She diagnosed with CHF exacerbation. Patient has ALLERGY to Lasix. Also had elevated blood pressure in the emergency room of 226/111. She was given hydrochlorothiazide and Aldactone. Also started on IV Solu-Medrol and bronchodilators for a COPD exacerbation. Pulmonary and cardiology have been consulted. Her oxygen saturation had dropped down into the 80s and she is currently on 3 L. Patient also reports urinary symptoms with urinary hesitancy. She has evidence of a UTI will be placed on Levaquin. She does penicillin and sulfa ALLERGY. Gabapentin discontinued. Patient denies any chest pain, cough, fever or chills or sweats. Denies any nausea or vomiting. Reports over the last day or 2 she' s had frequent stools but they are formed. She denies any headaches. Denies any lateralized weakness or numbness of the extremities. She does reports having some vision changes in both eyes lasting for a few minutes yesterday while looking out the window. Vision returned to normal after those few minutes. EKG normal sinus rhythm. Troponins negative. On 04/28/2018 patient is currently resting comfortably in bed on 2 L nasal cannula. 2-D echo completed showing EF between 55 and 60%. Patient denies chest pain. Does state some improvement shortness breath. Denies nausea vomiting or diarrhea. Denies any urinary burning or frequency. 04/29/2018 patient was apparently agitated this morning. She has calmed down this afternoon. Patient was placed on a Cardizem drip for elevated heart rate in the 120s this morning. She is also on Bumex for her CHF exacerbation. Echo was obtained showing an EF of 55-60%, there is a small generalized pericardial effusion present. No pulmonary hypertension. Patient is on 2 L satting at 96% 04/30/2018 patient sitting at the bedside chair. She required be placed back on Cardizem drip yesterday. Heart rate had been fluctuating between the 120s to 150s. She remains on the Bumex drip. Weight is trending down from a 97.3- 94 kg. Chest x-ray showing improving pleural effusion and no evidence of an infiltrate. Creatinine has gone up to 1.20. She is on clindamycin for UTI Objective - Vital Signs Vital signs: Vital Signs Temp 97.9 F 04/30/18 08:00 Pulse 96 04/30/18 11:45 Resp 18 04/30/18 08:00 BP 95/71 04/30/18 08:00 Pulse Ox 96 04/30/18 03:42 Intake & Output 04/29/18 04/30/18 04/30/18 18:59 06:59 18:59 Intake Total 948 420 290 Output Total 3500 Balance 948 -3080 290 Weight 94 kg Intake: Intake, IV Titration 50 50 Amount Diltiazem 50 mg In Sodium 50 Chloride 0.9% 40 ml @ 10 MG/HR 10 mls/hr IV .[facility]5H [facility] Rx#:[id number] Diltiazem 50 mg In Sodium 50 Chloride 0.9% 40 ml @ 10 MG/HR 10 mls/hr IV .[facility]5H [facility] Rx#:[id number] Oral 898 420 240 Output: Urine 3500 Other: Voiding Method Bedside Commode Bedside Commode Bedside Commode # Voids 1 2 # Bowel Movements 1 - Exam Head normocephalic Neck supple Lungs crackles at bases bilaterally Heart regular rate and rhythm S1-S2, no rub or gallop Abdomen is soft nontender nondistended positive bowel sounds no hepatosplenomegaly Extremities positive lower extremity edema Neuro alert and orientated to 3 - Labs CBC & Chem 7: 04/30/18 06:01 04/30/18 06:01 Labs: Abnormal Lab Results - Last 24 Hours (Table) 04/29/18 04/29/18 04/30/18 Range/Units 16:32 21:03 06:01 Plt Count 144 L (150-450) k/uL Lymphocytes # 0.9 L (1.0-4.8) k/uL Carbon Dioxide (22-30) mmol/L BUN (7-17) mg/dL Creatinine (0.52-1.04) mg/dL Glucose (74-99) mg/dL POC Glucose (mg/dL) 184 H 153 H (75-99) mg/dL ALT (9-52) U/L Total Protein (6.3-8.2) g/dL Albumin (3.5-5.0) g/dL 04/30/18 04/30/18 04/30/18 Range/Units 06:01 06:15 11:44 Plt Count (150-450) k/uL Lymphocytes # (1.0-4.8) k/uL Carbon Dioxide 31 H (22-30) mmol/L BUN 49 H (7-17) mg/dL Creatinine 1.20 H (0.52-1.04) mg/dL Glucose 130 H (74-99) mg/dL POC Glucose (mg/dL) 127 H 165 H (75-99) mg/dL ALT 58 H (9-52) U/L Total Protein 5.3 L (6.3-8.2) g/dL Albumin 2.8 L (3.5-5.0) g/dL Microbiology - Last 24 Hours (Table) 04/27/18 12:46 Urine Culture - Final Urine,Clean Catch Escherichia coli Assessment and Plan Assessment: 1. Acute hypoxic respiratory failure likely related to congestive heart failure exacerbation 2. Acute on chronic diastolic congestive heart failure exacerbation: Echo shows an EF of 55-60% and a small generalized pericardial effusion. Patient had elevated BNP on admission and CHF changes on chest x-ray. Patient has ALLERGY to Lasix. She was given Aldactone and hydrochlorothiazide in the ER. Continue Bumex drip. Cardiology following 3. COPD: No evidence of exacerbation. Patient seen by pulmonary service. They 've discontinued the IV steroids. No evidence of pneumonia on chest x-ray 4. History of paroxysmal atrial fibrillation: Continue Coreg and Cardizem. Not on anticoagulation at home. Patient reports having ALLERGY to Eliquis and did not want to try any other blood thinners. EKG normal sinus rhythm 5. UTI: Urine culture E. coli. Continue clindamycin 6. Hypertensive urgency on admission: Patient given hydrochlorothiazide and Aldactone in ER. Continue monitoring BP. Resume home medications. Followed by cardiology. They have increased Coreg to twice a day 7. Essential hypertension 8. Atrial fibrillation with rapid ventricular response: Cardiology has placed patient on Cardizem drip and was given a dose of IV digoxin. Continue to monitor. Cardiology added metoprolol and discontinued the Coreg. Patient refuses oral anticoagulation. GI prophylaxis Pepcid and DVT prophylaxis Lovenox I performed an examination of the patient and discussed their management with the physician Electronic Warfare Officer. I have reviewed the Physician Electronic Warfare Officer's notes and agree with the documented findings and plan of care
[2018-04-30 16:49] LABS: Glucose,Whole Blood 145 mg/dL (75-99)
[2018-04-30] MEDS: BUMETANIDE 12 MG in DEXTROSE 5% IN WATER 192 ML IV SCH ×2 (17:53)
[2018-04-30 20:57] LABS: Glucose,Whole Blood 146 mg/dL (75-99)
[2018-04-30] MEDS: LATANOPROST 0.005% OPHTH DROPS 2.5 ML BTL RIGHT EYE SCH (21:01)
[2018-04-30] MEDS: MONTELUKAST 10 MG TAB PO SCH (21:02)
[2018-04-30] MEDS: METOPROLOL TARTRATE 50 MG TAB PO SCH (21:04)
[2018-05-01] MEDS: DILTIAZEM 50 MG in SODIUM CHLORIDE 0.9% 40 ML IV SCH ×5 (01:12→22:46)
[2018-05-01 06:09] LABS: Glucose,Whole Blood 135 mg/dL (75-99)
[2018-05-01 06:29] LABS: Basophils % (A) 0 %; Eosinophils # (A) 0.1 k/uL (0-0.7); Eosinophils % (A) 1 %; HCT 45.1 % (34.0-46.0); HGB 14.4 gm/dL (11.4-16.0); Lymphocytes % (A) 11 %; MCH 30.8 pg (25.0-35.0); MCHC 31.9 g/dL (31.0-37.0); MCV 96.5 fL (80.0-100.0); Mean Platelet Volume 7.6; Monocytes # (A) 0.6 k/uL (0-1.0); Monocytes % (A) 6 %; Neutrophils # (A) 7.8 k/uL (1.3-7.7); Neutrophils % (A) 81 %; Platelet Count 118 k/uL (150-450); RBC 4.67 m/uL (3.80-5.40); RDW 14.6 % (11.5-15.5); WBC 9.6 k/uL (3.8-10.6)
[2018-05-01] MEDS: INSULIN ASPART 100 UNIT/ML 1 ML 10 ML VIAL SQ SCH ×4 (06:31→21:07)
[2018-05-01 06:41] LABS: Albumin 3.1 g/dL (3.5-5.0); Calcium 8.6 mg/dL (8.4-10.2); Potassium 3.2 mmol/L (3.5-5.1); Total Bilirubin 1.2 mg/dL (0.2-1.3); Total Protein 5.6 g/dL (6.3-8.2)
[2018-05-01] MEDS: IPRATROPIUM-ALBUTEROL 3 ML NEB INHALATION SCH ×4 (08:00→20:20)
[2018-05-01] MEDS: BUDESONIDE 0.5 MG/2 ML NEBU INHALATION SCH ×2 (08:00→20:20)
[2018-05-01] MEDS: ENOXAPARIN 40 MG/0.4 ML SYRINGE SQ SCH (08:24)
[2018-05-01] MEDS: METOPROLOL TARTRATE 50 MG TAB PO SCH ×3 (08:25→21:08)
[2018-05-01] MEDS: CLINDAMYCIN 150 MG CAP PO SCH ×3 (08:25→20:19)
[2018-05-01] MEDS: FAMOTIDINE 20 MG TAB PO SCH (08:26)
[2018-05-01] MEDS: CHOLECALCIFEROL 1,000 UNIT TAB PO SCH (08:26)
[2018-05-01] MEDS ORDERED: GABAPENTIN 100 MG CAP PO SCH (10:15)
--- NOTE | 2018-05-01 10:20 | P.PN ---
Subjective Progress Note Date: 05/01/18 Principal diagnosis: acute diastolic congestive heart failure this is a pleasant 82-year-old female patient who follows with Dr. Holliday in the office. She has a history significant for chronic lung disease, diastolic congestive heart failure, paroxysmal atrial fibrillation, hypertension , refusing anticoagulants in the past. She presented to the hospital with acute on chronic respiratory failure secondary to congestive heart failure exacerbation as well as atrial fibrillation with rapid ventricular response. She remains on a Bumex drip due to an ALLERGY to Lasix. She also remains on Cardizem drip at 15 an hour and remains in atrial fibrillation with poorly controlled ventricular response. she is not currently on anticoagulation except for Lovenox 40 mg subcu daily. She is on metoprolol tartrate 50 mg by mouth twice a day. Objective - Vital Signs Vital signs: Vital Signs Temp 97.6 F 05/01/18 08:34 Pulse 124 H 05/01/18 08:34 Resp 18 05/01/18 08:34 BP 118/86 05/01/18 08:34 Pulse Ox 96 05/01/18 08:34 Intake & Output 04/30/18 05/01/18 05/01/18 18:59 06:59 18:59 Intake Total 1089.5 147.25 Output Total 2500 3600 Balance -1410.5 -3452.75 Weight 91.9 kg Intake: Intake, IV Titration 377.5 147.25 Amount Bumetanide 12 mg In 240 Dextrose 5% in Water 192 ml @ 0.5 MG/HR 10 mls/hr IV .Q24H [facility] Rx#: [id number] Diltiazem 50 mg In Sodium 137.5 147.25 Chloride 0.9% 40 ml @ 10 MG/HR 10 mls/hr IV .Q5H [facility] Rx#:[id number] Oral 712 Output: Urine 2500 3600 Other: Voiding Method Bedside Commode Bedside Commode Bedside Commode # Voids 1 # Bowel Movements 1 - Exam PHYSICAL EXAMINATION: HEENT: [Head is atraumatic, normocephalic. Pupils equal, round. Neck is supple. There is no elevated jugular venous pressure.] HEART EXAMINATION: [Heart sounds irregular irregular, S1 and S2 normal. No murmur or gallop heard.] CHEST EXAMINATION:[ Lungs are clear to auscultation and precussion. No chest wall tenderness is noted on palpation or with deep breathing.] ABDOMEN: [ Soft, nontender. Bowel sounds are heard. No organomegaly noted]. EXTREMITIES:[ 2+ peripheral pulses with evidence of peripheral edema and no calf tenderness noted]. NEUROLOGIC [patient is awake, alert and oriented x3.] . - Labs CBC & Chem 7: 05/01/18 06:07 05/01/18 06:07 Labs: Abnormal Lab Results - Last 24 Hours (Table) 04/30/18 04/30/18 04/30/18 Range/Units 11:44 16:46 20:52 Plt Count (150-450) k/uL Neutrophils # (1.3-7.7) k/uL Potassium (3.5-5.1) mmol/L Carbon Dioxide (22-30) mmol/L BUN (7-17) mg/dL Creatinine (0.52-1.04) mg/dL Glucose (74-99) mg/dL POC Glucose (mg/dL) 165 H 145 H 146 H (75-99) mg/dL ALT (9-52) U/L Total Protein (6.3-8.2) g/dL Albumin (3.5-5.0) g/dL 05/01/18 05/01/18 05/01/18 Range/Units 06:00 06:07 06:07 Plt Count 118 L (150-450) k/uL Neutrophils # 7.8 H (1.3-7.7) k/uL Potassium 3.2 L (3.5-5.1) mmol/L Carbon Dioxide 34 H (22-30) mmol/L BUN 50 H (7-17) mg/dL Creatinine 1.20 H (0.52-1.04) mg/dL Glucose 135 H (74-99) mg/dL POC Glucose (mg/dL) 135 H (75-99) mg/dL ALT 55 H (9-52) U/L Total Protein 5.6 L (6.3-8.2) g/dL Albumin 3.1 L (3.5-5.0) g/dL Assessment and Plan Assessment: #1 acute on chronic diastolic congestive heart failure #2 paroxysmal atrial fibrillation with rapid ventricular response, currently in atrial fibrillation #3 hypertension #4 acute renal failure #5 chronic lung disease Plan: from cardiology perspective, we will continue current medications, increase metoprolol. We discussed in detail importance of adequate anticoagulation. If patient agrees to anticoagulation may consider cardioversion at a later date. We will continue to follow patient for further recommendations accordingly. NURSE FIRST AID note has been reviewed, I agree with a documented findings and plan of care. Patient was seen and examined.
[2018-05-01 11:42] LABS: Glucose,Whole Blood 123 mg/dL (75-99)
[2018-05-01] MEDS ORDERED: predniSONE 20 MG TAB PO STA (11:48)
--- NOTE | 2018-05-01 11:55 | P.PN ---
Subjective Progress Note Date: 05/01/18 This is a 82-year-old female with a known past medical history of paroxysmal atrial fibrillation, COPD, congestive heart failure and hypertension. Patient reports multiple medication ALLERGIES. Patient examined in the emergency room. She presents to the hospital with complaints of lower extremity edema and shortness of breath over the last week. Patient was recently started on gabapentin by the assistant. She is under going rheumatology workup outpatient. Patient has been on the gabapentin for the past 3 weeks. And within the last week she's noticed increased swelling in her legs and shortness of breath. Initially she thought she was having an ALLERGIC reaction to the gabapentin. She presented to the emergency room for further evaluation and treatment. She was found to have elevated BNP 3390. Chest x-ray shows suspected CHF exacerbation on background of moderate to severe chronic emphysematous change as there is new mild cardiomegaly with small bilateral pleural effusions and likely new mild interstitial edema. She diagnosed with CHF exacerbation. Patient has ALLERGY to Lasix. Also had elevated blood pressure in the emergency room of 226/111. She was given hydrochlorothiazide and Aldactone. Also started on IV Solu-Medrol and bronchodilators for a COPD exacerbation. Pulmonary and cardiology have been consulted. Her oxygen saturation had dropped down into the 80s and she is currently on 3 L. Patient also reports urinary symptoms with urinary hesitancy. She has evidence of a UTI will be placed on Levaquin. She does penicillin and sulfa ALLERGY. Gabapentin discontinued. Patient denies any chest pain, cough, fever or chills or sweats. Denies any nausea or vomiting. Reports over the last day or 2 she' s had frequent stools but they are formed. She denies any headaches. Denies any lateralized weakness or numbness of the extremities. She does reports having some vision changes in both eyes lasting for a few minutes yesterday while looking out the window. Vision returned to normal after those few minutes. EKG normal sinus rhythm. Troponins negative. On 04/28/2018 patient is currently resting comfortably in bed on 2 L nasal cannula. 2-D echo completed showing EF between 55 and 60%. Patient denies chest pain. Does state some improvement shortness breath. Denies nausea vomiting or diarrhea. Denies any urinary burning or frequency. 04/29/2018 patient was apparently agitated this morning. She has calmed down this afternoon. Patient was placed on a Cardizem drip for elevated heart rate in the 120s this morning. She is also on Bumex for her CHF exacerbation. Echo was obtained showing an EF of 55-60%, there is a small generalized pericardial effusion present. No pulmonary hypertension. Patient is on 2 L satting at 96% 04/30/2018 patient sitting at the bedside chair. She required be placed back on Cardizem drip yesterday. Heart rate had been fluctuating between the 120s to 150s. She remains on the Bumex drip. Weight is trending down from a 97.3- 94 kg. Chest x-ray showing improving pleural effusion and no evidence of an infiltrate. Creatinine has gone up to 1.20. She is on clindamycin for UTI On 05/01/2018 patient is alert and oriented 3, complains of generalized joint pain, otherwise she denies any complaints at this time, shortness of breath has improved, she has been off naproxen due to elevated BUN and creatinine, and this has caused worsening of her joint pain, she is requesting Neurontin, and denying that she ever had any ALLERGY to that, at this time patient will be given 1 dose of oral prednisone she will be started on Tylenol 500 mg every 4 hours when necessary she will also be restarted on a low-dose Neurontin 100 mg twice daily Will monitor for any sign of ALLERGY. Objective - Vital Signs Vital signs: Vital Signs Temp 97.6 F 05/01/18 08:34 Pulse 124 H 05/01/18 08:34 Resp 18 05/01/18 08:34 BP 118/86 05/01/18 08:34 Pulse Ox 96 05/01/18 08:34 Intake & Output 04/30/18 05/01/18 05/01/18 18:59 06:59 18:59 Intake Total 1089.5 147.25 Output Total 2500 3600 Balance -1410.5 -3452.75 Weight 91.9 kg Intake: Intake, IV Titration 377.5 147.25 Amount Bumetanide 12 mg In 240 Dextrose 5% in Water 192 ml @ 0.5 MG/HR 10 mls/hr IV .Q24H [facility] Rx#: [id number] Diltiazem 50 mg In Sodium 137.5 147.25 Chloride 0.9% 40 ml @ 10 MG/HR 10 mls/hr IV .Q5H [facility] Rx#:[id number] Oral 712 Output: Urine 2500 3600 Other: Voiding Method Bedside Commode Bedside Commode Bedside Commode # Voids 1 # Bowel Movements 1 - Exam Head normocephalic and atraumatic Neck supple no JVD no goiter no lymphadenopathy Lungs crackles at bases bilaterally Heart regular rate and rhythm S1-S2, no rub or gallop Abdomen is soft nontender nondistended positive bowel sounds no hepatosplenomegaly Extremities positive lower extremity edema Neuro alert and orientated to 3 - Labs CBC & Chem 7: 05/01/18 06:07 05/01/18 06:07 Labs: Abnormal Lab Results - Last 24 Hours (Table) 04/30/18 04/30/18 05/01/18 Range/Units 16:46 20:52 06:00 Plt Count (150-450) k/uL Neutrophils # (1.3-7.7) k/uL Potassium (3.5-5.1) mmol/L Carbon Dioxide (22-30) mmol/L BUN (7-17) mg/dL Creatinine (0.52-1.04) mg/dL Glucose (74-99) mg/dL POC Glucose (mg/dL) 145 H 146 H 135 H (75-99) mg/dL ALT (9-52) U/L Total Protein (6.3-8.2) g/dL Albumin (3.5-5.0) g/dL 05/01/18 05/01/18 05/01/18 Range/Units 06:07 06:07 11:40 Plt Count 118 L (150-450) k/uL Neutrophils # 7.8 H (1.3-7.7) k/uL Potassium 3.2 L (3.5-5.1) mmol/L Carbon Dioxide 34 H (22-30) mmol/L BUN 50 H (7-17) mg/dL Creatinine 1.20 H (0.52-1.04) mg/dL Glucose 135 H (74-99) mg/dL POC Glucose (mg/dL) 123 H (75-99) mg/dL ALT 55 H (9-52) U/L Total Protein 5.6 L (6.3-8.2) g/dL Albumin 3.1 L (3.5-5.0) g/dL Assessment and Plan Plan: 1. Acute hypoxic respiratory failure likely related to congestive heart failure exacerbation 2. Acute on chronic diastolic congestive heart failure exacerbation: Echo shows an EF of 55-60% and a small generalized pericardial effusion. Patient had elevated BNP on admission and CHF changes on chest x-ray. Patient has ALLERGY to Lasix. She was given Aldactone and hydrochlorothiazide in the ER. Continue Bumex drip. Cardiology following 3. COPD: No evidence of exacerbation. Patient seen by pulmonary service. They 've discontinued the IV steroids. No evidence of pneumonia on chest x-ray 4. History of paroxysmal atrial fibrillation: Continue Coreg and Cardizem. Not on anticoagulation at home. Patient reports having ALLERGY to Eliquis and did not want to try any other blood thinners. EKG normal sinus rhythm 5. UTI: Urine culture E. coli. Continue clindamycin 6. Hypertensive urgency on admission: Patient given hydrochlorothiazide and Aldactone in ER. Continue monitoring BP. Resume home medications. Followed by cardiology. They have increased Coreg to twice a day 7. Essential hypertension 8. Atrial fibrillation with rapid ventricular response: Cardiology has placed patient on Cardizem drip and was given a dose of IV digoxin. Continue to monitor. Cardiology added metoprolol and discontinued the Coreg. Patient refuses oral anticoagulation. 9. Generalized joint pain patient will be given 1 dose of prednisone 20 mg by mouth, she will also be started on Tylenol 500 mg every 4 hours when necessary, and on gabapentin 100 mg twice daily, patient denies ever being ALLERGIC to gabapentin, will monitor very closely GI prophylaxis Pepcid and DVT prophylaxis Lovenox
[2018-05-01] MEDS: GABAPENTIN 100 MG CAP PO SCH ×2 (12:36→20:18)
[2018-05-01] MEDS: ACETAMINOPHEN TAB 500 MG TAB PO PRN ×2 (12:37→17:33)
--- NOTE | 2018-05-01 15:27 | PN ---
Patient seen and examined. Patient states her breathing is improving quite a bit. She states her wheezing is improving. She has lost a lot of weight from diuresis. She is asking for pain medication. She states her Aleve was discontinued and that she would like something else for pain. She has taken gabapentin in the past with success. She thought she had a reaction to it but is denying an ALLERGY at this time. Potassium will be replaced. Patient is still on Bumex drip. Cardiology is adjusting medications for better rate control. ~Linette Oreilly DO PROGRESS NOTE DATE OF SERVICE: 05/01/2018 HISTORY OF PRESENT ILLNESS: Patient is an 82-year-old female who initially presented to the ED with increased difficulty with breathing that had been getting worse over the last few weeks. She had considerable worsening lower extremity edema that was not going down. She is being followed by Cardiology, also. She was found to have atrial fibrillation with a rapid ventricular response and has been started on a Bumex drip. She does have a history of paroxysmal atrial fibrillation but had stopped taking Eliquis. Her x-ray has been demonstrating chronic emphysematous changes with mild cardiomegaly. Her breathing is improving. She is complaining of a lot of pain and she was started on gabapentin. In addition she was found to have low potassium and was replaced. She has been started on metoprolol per Cardiology and had been on a Cardizem drip. PHYSICAL EXAMINATION: VITAL SIGNS: Temperature of 97.6, heart rate 122, respiratory rate 18. Blood pressure is 110/81. Oxygen saturation on 2 L is 95%. Labs show WBC 9.6, hemoglobin 14.4, hematocrit 45.1, platelets 118; sodium 140, potassium 3.2, chloride 100, CO2 34, anion gap 6, BUN 50, creatinine 1.2, glucose 123, calcium 8.6, total bilirubin 1.2, AST 18, ALT 55, alkaline phosphatase 56, total protein 5.6, albumin 3.1. Urine is showing E coli. GENERAL: Patient is a 82-year-old female who appears in no acute respiratory distress at this time. Her breathing is improved. HEENT: Head is atraumatic, normocephalic. Pupils are equal, reactive. NECK: Supple. No JVD. LUNGS: Lung sounds are diminished. Few rales bilaterally. CARDIOVASCULAR: Irregular. S1 and S2 are heard. ABDOMEN: Soft, nontender. Bowel sounds are heard. EXTREMITIES: One plus edema. Pulses are palpable. NEUROLOGIC: She is awake, alert. IMPRESSION: 1. Acute hypoxic respiratory failure. 2. Acute exacerbation of congestive heart failure. 3. Paroxysmal atrial fibrillation. 4. Pulmonary vascular congestion. 5. Chronic obstructive pulmonary disease, not acutely exacerbated. 6. Chronic moderate to severe persistent asthma, not acutely exacerbated. 7. Lower extremity edema. 8. Moderate protein-calorie malnutrition. 9. Obesity. 10.Mild thrombocytopenia. PLAN: Continue medications as ordered and reviewed. Continue with oxygen to keep saturations 90% or better. Continue with nebulizer treatments and Singulair as ordered. Continue with Bumex drip as ordered. Monitor I&O. Daily weight. Monitor labs. Patient has been started on gabapentin. Potassium has been replaced. Labs in the morning. Continue with GI and DVT prophylaxis. Will continue to follow patient closely with you and make further changes as necessary. MMODL / IJN: [id number] / MTDD
[2018-05-01 16:54] LABS: Glucose,Whole Blood 215 mg/dL (75-99)
[2018-05-01] MEDS: POTASSIUM CHLORIDE ER 20 MEQ TAB.ER PO SCH ×2 (18:54→20:01)
[2018-05-01] MEDS: BUMETANIDE 12 MG in DEXTROSE 5% IN WATER 192 ML IV SCH ×2 (20:14)
[2018-05-01] MEDS: LATANOPROST 0.005% OPHTH DROPS 2.5 ML BTL RIGHT EYE SCH (20:18)
[2018-05-01] MEDS: MONTELUKAST 10 MG TAB PO SCH (20:19)
[2018-05-01 20:53] LABS: Glucose,Whole Blood 218 mg/dL (75-99)
[2018-05-02] MEDS: DILTIAZEM 50 MG in SODIUM CHLORIDE 0.9% 40 ML IV SCH ×6 (02:10→21:16)
[2018-05-02 05:53] LABS: Basophils % (A) 0 %; Eosinophils # (A) 0.1 k/uL (0-0.7); Eosinophils % (A) 1 %; HCT 45.6 % (34.0-46.0); Lymphocytes # (A) 0.9 k/uL (1.0-4.8); Lymphocytes % (A) 12 %; MCH 29.7 pg (25.0-35.0); MCHC 30.6 g/dL (31.0-37.0); Mean Platelet Volume 7.6; Monocytes # (A) 0.4 k/uL (0-1.0); Monocytes % (A) 6 %; Neutrophils # (A) 6.1 k/uL (1.3-7.7); Neutrophils % (A) 80 %; Platelet Count 128 k/uL (150-450); RDW 15.1 % (11.5-15.5); WBC 7.6 k/uL (3.8-10.6)
[2018-05-02 06:08] LABS: Glucose,Whole Blood 141 mg/dL (75-99)
[2018-05-02 06:08] LABS: Albumin 3.1 g/dL (3.5-5.0); Calcium 8.5 mg/dL (8.4-10.2); Potassium 3.1 mmol/L (3.5-5.1); Total Protein 5.6 g/dL (6.3-8.2)
[2018-05-02] MEDS: INSULIN ASPART 100 UNIT/ML 1 ML 10 ML VIAL SQ SCH ×4 (06:42→21:19)
[2018-05-02] MEDS: BUDESONIDE 0.5 MG/2 ML NEBU INHALATION SCH ×2 (07:46→20:00)
[2018-05-02] MEDS: IPRATROPIUM-ALBUTEROL 3 ML NEB INHALATION SCH ×4 (07:47→20:00)
[2018-05-02] MEDS: CHOLECALCIFEROL 1,000 UNIT TAB PO SCH (08:27)
[2018-05-02] MEDS: CLINDAMYCIN 150 MG CAP PO SCH (08:27)
[2018-05-02] MEDS: METOPROLOL TARTRATE 50 MG TAB PO SCH ×3 (08:27→21:20)
[2018-05-02] MEDS: ENOXAPARIN 40 MG/0.4 ML SYRINGE SQ SCH (08:27)
[2018-05-02] MEDS: GABAPENTIN 100 MG CAP PO SCH ×2 (08:28→21:19)
[2018-05-02] MEDS: FAMOTIDINE 20 MG TAB PO SCH (08:28)
--- NOTE | 2018-05-02 10:41 | P.PN ---
Subjective Progress Note Date: 05/02/18 This is a 82-year-old female with a known past medical history of paroxysmal atrial fibrillation, COPD, congestive heart failure and hypertension. Patient reports multiple medication ALLERGIES. Patient examined in the emergency room. She presents to the hospital with complaints of lower extremity edema and shortness of breath over the last week. Patient was recently started on gabapentin by the digester. She is under going rheumatology workup outpatient. Patient has been on the gabapentin for the past 3 weeks. And within the last week she's noticed increased swelling in her legs and shortness of breath. Initially she thought she was having an ALLERGIC reaction to the gabapentin. She presented to the emergency room for further evaluation and treatment. She was found to have elevated BNP 3390. Chest x-ray shows suspected CHF exacerbation on background of moderate to severe chronic emphysematous change as there is new mild cardiomegaly with small bilateral pleural effusions and likely new mild interstitial edema. She diagnosed with CHF exacerbation. Patient has ALLERGY to Lasix. Also had elevated blood pressure in the emergency room of 226/111. She was given hydrochlorothiazide and Aldactone. Also started on IV Solu-Medrol and bronchodilators for a COPD exacerbation. Pulmonary and cardiology have been consulted. Her oxygen saturation had dropped down into the 80s and she is currently on 3 L. Patient also reports urinary symptoms with urinary hesitancy. She has evidence of a UTI will be placed on Levaquin. She does penicillin and sulfa ALLERGY. Gabapentin discontinued. Patient denies any chest pain, cough, fever or chills or sweats. Denies any nausea or vomiting. Reports over the last day or 2 she' s had frequent stools but they are formed. She denies any headaches. Denies any lateralized weakness or numbness of the extremities. She does reports having some vision changes in both eyes lasting for a few minutes yesterday while looking out the window. Vision returned to normal after those few minutes. EKG normal sinus rhythm. Troponins negative. On 04/28/2018 patient is currently resting comfortably in bed on 2 L nasal cannula. 2-D echo completed showing EF between 55 and 60%. Patient denies chest pain. Does state some improvement shortness breath. Denies nausea vomiting or diarrhea. Denies any urinary burning or frequency. 04/29/2018 patient was apparently agitated this morning. She has calmed down this afternoon. Patient was placed on a Cardizem drip for elevated heart rate in the 120s this morning. She is also on Bumex for her CHF exacerbation. Echo was obtained showing an EF of 55-60%, there is a small generalized pericardial effusion present. No pulmonary hypertension. Patient is on 2 L satting at 96% 04/30/2018 patient sitting at the bedside chair. She required be placed back on Cardizem drip yesterday. Heart rate had been fluctuating between the 120s to 150s. She remains on the Bumex drip. Weight is trending down from a 97.3- 94 kg. Chest x-ray showing improving pleural effusion and no evidence of an infiltrate. Creatinine has gone up to 1.20. She is on clindamycin for UTI On 05/01/2018 patient is alert and oriented 3, complains of generalized joint pain, otherwise she denies any complaints at this time, shortness of breath has improved, she has been off naproxen due to elevated BUN and creatinine, and this has caused worsening of her joint pain, she is requesting Neurontin, and denying that she ever had any ALLERGY to that, at this time patient will be given 1 dose of oral prednisone she will be started on Tylenol 500 mg every 4 hours when necessary she will also be restarted on a low-dose Neurontin 100 mg twice daily Will monitor for any sign of ALLERGY. On 05/02/2018 patient is feeling better she is alert and oriented 3 her joint pain has improved she is requesting to have more prednisone today her shortness of breath has also improved there is no fever or chills no headache or dizziness no chest pain no cough no nausea or vomiting no abdominal pain and no urinary symptoms Objective - Vital Signs Vital signs: Vital Signs Temp 98.3 F 05/02/18 03:22 Pulse 122 H 05/02/18 08:16 Resp 18 05/02/18 08:16 BP 126/83 05/02/18 08:16 Pulse Ox 96 05/02/18 08:16 Intake & Output 05/01/18 05/02/18 05/02/18 18:59 06:59 18:59 Intake Total 940 245.75 50 Output Total 400 251 Balance 540 -5.25 50 Weight 89.3 kg Intake: Intake, IV Titration 340 145.75 50 Amount Bumetanide 12 mg In 240 Dextrose 5% in Water 192 ml @ 0.5 MG/HR 10 mls/hr IV .Q24H ОЛЕГ Rx#: [id number] Diltiazem 50 mg In Sodium 100 145.75 50 Chloride 0.9% 40 ml @ 10 MG/HR 10 mls/hr IV .Q5H ОЛЕГ Rx#:[id number] Oral 600 100 Output: Urine 400 250 Urine/Stool Mix 1 Other: Voiding Method Bedside Commode Bedside Commode Bedside Commode # Voids 1 - Exam Head normocephalic and atraumatic Neck supple no JVD no goiter no lymphadenopathy Lungs crackles at bases bilaterally Heart regular rate and rhythm S1-S2, no rub or gallop Abdomen is soft nontender nondistended positive bowel sounds no hepatosplenomegaly Extremities positive lower extremity edema improving gradually Neuro alert and orientated to 3 - Labs CBC & Chem 7: 05/02/18 05:40 05/02/18 05:40 Labs: Abnormal Lab Results - Last 24 Hours (Table) 05/01/18 05/01/18 05/01/18 Range/Units 11:40 16:47 20:49 MCHC (31.0-37.0) g/dL Plt Count (150-450) k/uL Lymphocytes # (1.0-4.8) k/uL Potassium (3.5-5.1) mmol/L Carbon Dioxide (22-30) mmol/L BUN (7-17) mg/dL Creatinine (0.52-1.04) mg/dL Glucose (74-99) mg/dL POC Glucose (mg/dL) 123 H 215 H 218 H (75-99) mg/dL ALT (9-52) U/L Total Protein (6.3-8.2) g/dL Albumin (3.5-5.0) g/dL 05/02/18 05/02/18 05/02/18 Range/Units 05:40 05:40 06:06 MCHC 30.6 L (31.0-37.0) g/dL Plt Count 128 L (150-450) k/uL Lymphocytes # 0.9 L (1.0-4.8) k/uL Potassium 3.1 L (3.5-5.1) mmol/L Carbon Dioxide 39 H (22-30) mmol/L BUN 49 H (7-17) mg/dL Creatinine 1.20 H (0.52-1.04) mg/dL Glucose 147 H (74-99) mg/dL POC Glucose (mg/dL) 141 H (75-99) mg/dL ALT 59 H (9-52) U/L Total Protein 5.6 L (6.3-8.2) g/dL Albumin 3.1 L (3.5-5.0) g/dL Assessment and Plan Plan: 1. Acute hypoxic respiratory failure likely related to congestive heart failure exacerbation 2. Acute on chronic diastolic congestive heart failure exacerbation: Echo shows an EF of 55-60% and a small generalized pericardial effusion. Patient had elevated BNP on admission and CHF changes on chest x-ray. Patient has ALLERGY to Lasix. She was given Aldactone and hydrochlorothiazide in the ER. Continue Bumex drip. Cardiology following 3. COPD: No evidence of exacerbation. Patient seen by pulmonary service. They 've discontinued the IV steroids. No evidence of pneumonia on chest x-ray 4. History of paroxysmal atrial fibrillation: Continue Coreg and Cardizem. Not on anticoagulation at home. Patient reports having ALLERGY to Eliquis and did not want to try any other blood thinners. EKG normal sinus rhythm 5. UTI: Urine culture E. coli. Continue clindamycin urine culture is only showing 10-49,000 oh for E. coli patient received several days of clindamycin will discontinue antibiotic at this time 6. Hypertensive urgency on admission: Patient given hydrochlorothiazide and Aldactone in ER. Continue monitoring BP. Resume home medications. Followed by cardiology. They have increased Coreg to twice a day 7. Essential hypertension 8. Atrial fibrillation with rapid ventricular response: Cardiology has placed patient on Cardizem drip and was given a dose of IV digoxin. Continue to monitor. Cardiology added metoprolol and discontinued the Coreg. Patient refuses oral anticoagulation. 9. Generalized joint pain patient will be given 1 dose of prednisone 20 mg by mouth, she will also be started on Tylenol 500 mg every 4 hours when necessary, and on gabapentin 100 mg twice daily, patient denies ever being ALLERGIC to gabapentin, will monitor very closely, patient is tolerating gabapentin well she also received 1 dose of prednisone 20 mg by mouth yesterday significant improvement with her arthritis pain we will give 1 more dose of prednisone today GI prophylaxis Pepcid and DVT prophylaxis Lovenox
[2018-05-02] MEDS ORDERED: predniSONE 20 MG TAB PO STA (10:44)
--- NOTE | 2018-05-02 10:57 | P.PN ---
Subjective Progress Note Date: 05/02/18 This is an 82-year-old female who presented emergency department complaining of shortness of breath. The patient states this has been getting worse over the past few weeks. She did note worsening lower extremity edema however she states that she frequently has swelling and it usually goes away. She states this time it didn't seem to go away. She does have a known history of asthma and COPD. She takes Breo and Combivent at home. The patient has a history of atrial fibrillation and congestive heart failure as well. On chest x-ray she was found to have pulmonary vascular congestion and cardiomegaly. The patient is being seen by cardiology. She denies fevers and chills. She does not smoke. She has been hemodynamically stable. The patient apparently had a positive stress test on some outpatient but does not undergo cardiac catheterization. The patient is agreeable to proceed with that at this time. She also stopped taking Eliquis despite a history of paroxysmal atrial fibrillation. She felt it was making her breathing worse. Per the patient and her daughter the patient isn't got very short of breath even with minimal exertion at home. And this had been ongoing for several weeks. Interval History: 04/29/18- patient is being seen examined and evaluated today on rounds. She is resting up in bed on 2 L of supplemental oxygen via nasal cannula. Upon examination the patient is somewhat agitated. States that she is frustrated with her health care at this point. He states she does not like people changing her medications, it is explained to the patient any change in medication is only to help treat her current health issues and is in her best interest. She has had some tachycardia this morning rates in the 120s, currently she is on a Cardizem drip for that. She states her shortness of breath is improving slightly however still gets short of breath with any activity and exertion. She has a chronic cough. Echocardiogram was obtained EF 55-60%, there is a small generalized pericardial effusion present, no evidence of pulmonary hypertension. Daughter is at bedside updated on plan of care. 04/30/18- patient is being seen examined and evaluated today on rounds he is resting up in bed on 2 L of supplemental oxygen via nasal cannula. She did undergo a chest x-ray this morning that did read demonstrate chronic emphysematous changes and mild cardiomegaly with interval resolution of tiny bilateral pleural effusions. No new suspicious focal infiltrate was present. Patient does state her breathing is somewhat improved today. She is less short of breath. She has been put on a Bumex drip and continues on her Cardizem drip as well. She is afebrile no further complaints. 05/02/2018: Patient seen and examined. Patient states she is feeling much better overall. She states she has not been out of bed. She continues on Bumex drip. She states her wheezing and shortness of breath are resolving. She isn't currently on 2 L nasal cannula. She states that the oxygen did come off her period of time and she didn't feel more short of breath. However her oxygen saturation was not checked at that time. Objective - Vital Signs Vital signs: Vital Signs Temp 98.3 F 05/02/18 03:22 Pulse 122 H 05/02/18 08:16 Resp 18 05/02/18 08:16 BP 126/83 05/02/18 08:16 Pulse Ox 96 05/02/18 08:16 Intake & Output 05/01/18 05/02/18 05/02/18 18:59 06:59 18:59 Intake Total 940 245.75 50 Output Total 400 251 Balance 540 -5.25 50 Weight 89.3 kg Intake: Intake, IV Titration 340 145.75 50 Amount Bumetanide 12 mg In 240 Dextrose 5% in Water 192 ml @ 0.5 MG/HR 10 mls/hr IV .Q24H ОЛЕГ Rx#: [id number] Diltiazem 50 mg In Sodium 100 145.75 50 Chloride 0.9% 40 ml @ 10 MG/HR 10 mls/hr IV .Q5H ОЛЕГ Rx#:[id number] Oral 600 100 Output: Urine 400 250 Urine/Stool Mix 1 Other: Voiding Method Bedside Commode Bedside Commode Bedside Commode # Voids 1 - Exam Gen.: Patient is alert and oriented 3, no acute distress Cardiovascular: afib with RVR, S1, S2 Lungs: Bases dimished with some faint Scattered crackles bilaterally Abdomen: Soft nontender nondistended positive bowel sounds Extremities: trace to 1+ edema - Labs CBC & Chem 7: 05/02/18 05:40 05/02/18 05:40 Labs: Abnormal Lab Results - Last 24 Hours (Table) 05/01/18 05/01/18 05/01/18 Range/Units 11:40 16:47 20:49 MCHC (31.0-37.0) g/dL Plt Count (150-450) k/uL Lymphocytes # (1.0-4.8) k/uL Potassium (3.5-5.1) mmol/L Carbon Dioxide (22-30) mmol/L BUN (7-17) mg/dL Creatinine (0.52-1.04) mg/dL Glucose (74-99) mg/dL POC Glucose (mg/dL) 123 H 215 H 218 H (75-99) mg/dL ALT (9-52) U/L Total Protein (6.3-8.2) g/dL Albumin (3.5-5.0) g/dL 05/02/18 05/02/18 05/02/18 Range/Units 05:40 05:40 06:06 MCHC 30.6 L (31.0-37.0) g/dL Plt Count 128 L (150-450) k/uL Lymphocytes # 0.9 L (1.0-4.8) k/uL Potassium 3.1 L (3.5-5.1) mmol/L Carbon Dioxide 39 H (22-30) mmol/L BUN 49 H (7-17) mg/dL Creatinine 1.20 H (0.52-1.04) mg/dL Glucose 147 H (74-99) mg/dL POC Glucose (mg/dL) 141 H (75-99) mg/dL ALT 59 H (9-52) U/L Total Protein 5.6 L (6.3-8.2) g/dL Albumin 3.1 L (3.5-5.0) g/dL Assessment and Plan Assessment: Acute hypoxic respiratory failure Acute exacerbation of CHF Paroxysmal atrial fibrillation Pulmonary vascular congestion COPD, not acutely exacerbated Chronic moderate to severe persistent asthma not acutely exacerbated Lower extremity edema Moderate protein calorie malnutrition Obesity Mild thrombocytopenia Plan Medications reviewed and will be continued as ordered O2 to maintain saturation greater than or equal to 90% Home oxygen assessment prior to discharge Duo nebs and Pulmicort Singulair Diuresis, currently on Bumex drip Monitor I's and O's Repeat CXR in AM pending Daily weights Echocardiogram Cardiology recommendations for possible heart catheterization once CHF is resolved No need for steroids at this time from pulmonary standpoint No need for antibiotics from pulmonary standpoint Incentive spirometry and pulmonary hygiene GI and DVT prophylaxis Consult PT and OT, patient encouraged to get out of bed, order for out of bed with meals Check O2 saturation on RA We will continue to follow labs/reports and adjust treatment as necessary
--- NOTE | 2018-05-02 11:34 | XR ---
EXAMINATION TYPE: XR chest 1V portable DATE OF EXAM: 05/02/2018 HISTORY: pna. REFERENCE: Previous study dated 04/30/2018. FINDINGS: There is increasing opacity at the right lung base. The left lung is clear. The heart is mi ldly enlarged. IMPRESSION: 1. DEVELOPING RIGHT LOWER LOBE PNEUMONIA. 2. MILD CARDIOMEGALY.
[2018-05-02 11:35] LABS: Glucose,Whole Blood 130 mg/dL (75-99)
--- NOTE | 2018-05-02 13:42 | P.PN ---
Subjective Patient is lying comfortably in bed. She is in better spirits today now that she has received her pain medications. She is also willing to try anticoagulation for stroke prevention. She denies any chest discomfort no undue shortness of breath Impression Persistent atrial fibrillation A very long list of ALLERGIES to medications Suggest Rate control and anticoagulation. Discussed with patient's daughter BRETT 2.5 g twice daily Objective - Vital Signs Vital signs: Vital Signs Temp 98.3 F 05/02/18 03:22 Pulse 102 H 05/02/18 12:00 Resp 18 05/02/18 12:00 BP 124/79 05/02/18 12:00 Pulse Ox 97 05/02/18 12:00 Intake & Output 05/01/18 05/02/18 05/02/18 18:59 06:59 18:59 Intake Total 940 245.75 50 Output Total 400 251 Balance 540 -5.25 50 Weight 89.3 kg Intake: Intake, IV Titration 340 145.75 50 Amount Bumetanide 12 mg In 240 Dextrose 5% in Water 192 ml @ 0.5 MG/HR 10 mls/hr IV .Q24H ОЛЕГ Rx#: [id number] Diltiazem 50 mg In Sodium 100 145.75 50 Chloride 0.9% 40 ml @ 10 MG/HR 10 mls/hr IV .Q5H ОЛЕГ Rx#:[id number] Oral 600 100 Output: Urine 400 250 Urine/Stool Mix 1 Other: Voiding Method Bedside Commode Bedside Commode Bedside Commode # Voids 1 - Labs CBC & Chem 7: 05/02/18 05:40 05/02/18 05:40 Labs: Abnormal Lab Results - Last 24 Hours (Table) 05/01/18 05/01/18 05/02/18 Range/Units 16:47 20:49 05:40 MCHC 30.6 L (31.0-37.0) g/dL Plt Count 128 L (150-450) k/uL Lymphocytes # 0.9 L (1.0-4.8) k/uL Potassium (3.5-5.1) mmol/L Carbon Dioxide (22-30) mmol/L BUN (7-17) mg/dL Creatinine (0.52-1.04) mg/dL Glucose (74-99) mg/dL POC Glucose (mg/dL) 215 H 218 H (75-99) mg/dL ALT (9-52) U/L Total Protein (6.3-8.2) g/dL Albumin (3.5-5.0) g/dL 05/02/18 05/02/18 05/02/18 Range/Units 05:40 06:06 11:33 MCHC (31.0-37.0) g/dL Plt Count (150-450) k/uL Lymphocytes # (1.0-4.8) k/uL Potassium 3.1 L (3.5-5.1) mmol/L Carbon Dioxide 39 H (22-30) mmol/L BUN 49 H (7-17) mg/dL Creatinine 1.20 H (0.52-1.04) mg/dL Glucose 147 H (74-99) mg/dL POC Glucose (mg/dL) 141 H 130 H (75-99) mg/dL ALT 59 H (9-52) U/L Total Protein 5.6 L (6.3-8.2) g/dL Albumin 3.1 L (3.5-5.0) g/dL
[2018-05-02] MEDS: APIXABAN 2.5 MG TABLET PO SCH ×2 (13:55→21:19)
[2018-05-02] MEDS: ACETAMINOPHEN TAB 500 MG TAB PO PRN (16:43)
[2018-05-02 16:54] LABS: Glucose,Whole Blood 179 mg/dL (75-99)
[2018-05-02] MEDS ORDERED: Potassium Replacement Protocol 1 EACH MISC MISCELLANE PRN (17:16)
[2018-05-02] MEDS: POTASSIUM CHLORIDE ER 20 MEQ TAB.ER PO SCH ×3 (17:51→21:19)
[2018-05-02] MEDS: BUMETANIDE 12 MG in DEXTROSE 5% IN WATER 192 ML IV SCH ×2 (20:07)
[2018-05-02 21:13] LABS: Glucose,Whole Blood 201 mg/dL (75-99)
[2018-05-02] MEDS: MONTELUKAST 10 MG TAB PO SCH (21:19)
[2018-05-02] MEDS: LATANOPROST 0.005% OPHTH DROPS 2.5 ML BTL RIGHT EYE SCH (22:32)
[2018-05-03] MEDS: DILTIAZEM 50 MG in SODIUM CHLORIDE 0.9% 40 ML IV SCH ×5 (03:22→23:09)
[2018-05-03 05:47] LABS: Glucose,Whole Blood 157 mg/dL (75-99)
[2018-05-03 06:19] LABS: Basophils % (A) 0 %; Eosinophils % (A) 0 %; HCT 46.1 % (34.0-46.0); HGB 14.7 gm/dL (11.4-16.0); Lymphocytes # (A) 1.1 k/uL (1.0-4.8); Lymphocytes % (A) 12 %; MCHC 31.9 g/dL (31.0-37.0); MCV 97.1 fL (80.0-100.0); Mean Platelet Volume 8.3; Monocytes # (A) 0.5 k/uL (0-1.0); Monocytes % (A) 6 %; Neutrophils # (A) 6.9 k/uL (1.3-7.7); Neutrophils % (A) 80 %; Platelet Count 147 k/uL (150-450); RBC 4.75 m/uL (3.80-5.40); RDW 14.6 % (11.5-15.5); WBC 8.6 k/uL (3.8-10.6)
[2018-05-03] MEDS: INSULIN ASPART 100 UNIT/ML 1 ML 10 ML VIAL SQ SCH ×4 (06:19→21:30)
[2018-05-03 06:44] LABS: Albumin 3.1 g/dL (3.5-5.0); Calcium 8.9 mg/dL (8.4-10.2); Potassium 3.9 mmol/L (3.5-5.1); Total Protein 5.8 g/dL (6.3-8.2)
[2018-05-03] MEDS: CHOLECALCIFEROL 1,000 UNIT TAB PO SCH (07:52)
[2018-05-03] MEDS: APIXABAN 2.5 MG TABLET PO SCH ×2 (07:52→19:48)
[2018-05-03] MEDS: METOPROLOL TARTRATE 50 MG TAB PO SCH ×3 (07:52→19:47)
[2018-05-03] MEDS: GABAPENTIN 100 MG CAP PO SCH ×2 (07:52→19:47)
[2018-05-03] MEDS: FAMOTIDINE 20 MG TAB PO SCH (07:53)
[2018-05-03] MEDS: BUDESONIDE 0.5 MG/2 ML NEBU INHALATION SCH ×2 (08:01→20:00)
[2018-05-03] MEDS: IPRATROPIUM-ALBUTEROL 3 ML NEB INHALATION SCH ×4 (08:02→20:00)
--- NOTE | 2018-05-03 10:35 | P.PN ---
<Albertina Pérez E - Last Filed: 05/03/18 10:27> Subjective Progress Note Date: 05/03/18 History of present illness: This is an 82-year-old female who presented emergency department complaining of shortness of breath. The patient states this has been getting worse over the past few weeks. She did note worsening lower extremity edema however she states that she frequently has swelling and it usually goes away. She states this time it didn't seem to go away. She does have a known history of asthma and COPD. She takes Breo and Combivent at home. The patient has a history of atrial fibrillation and congestive heart failure as well. On chest x-ray she was found to have pulmonary vascular congestion and cardiomegaly. The patient is being seen by cardiology. She denies fevers and chills. She does not smoke. She has been hemodynamically stable. The patient apparently had a positive stress test on some outpatient but does not undergo cardiac catheterization. The patient is agreeable to proceed with that at this time. She also stopped taking Eliquis despite a history of paroxysmal atrial fibrillation. She felt it was making her breathing worse. Per the patient and her daughter the patient isn't got very short of breath even with minimal exertion at home. And this had been ongoing for several weeks. Interval History: 04/29/18- patient is being seen examined and evaluated today on rounds. She is resting up in bed on 2 L of supplemental oxygen via nasal cannula. Upon examination the patient is somewhat agitated. States that she is frustrated with her health care at this point. He states she does not like people changing her medications, it is explained to the patient any change in medication is only to help treat her current health issues and is in her best interest. She has had some tachycardia this morning rates in the 120s, currently she is on a Cardizem drip for that. She states her shortness of breath is improving slightly however still gets short of breath with any activity and exertion. She has a chronic cough. Echocardiogram was obtained EF 55-60%, there is a small generalized pericardial effusion present, no evidence of pulmonary hypertension. Daughter is at bedside updated on plan of care. 04/30/18- patient is being seen examined and evaluated today on rounds he is resting up in bed on 2 L of supplemental oxygen via nasal cannula. She did undergo a chest x-ray this morning that did read demonstrate chronic emphysematous changes and mild cardiomegaly with interval resolution of tiny bilateral pleural effusions. No new suspicious focal infiltrate was present. Patient does state her breathing is somewhat improved today. She is less short of breath. She has been put on a Bumex drip and continues on her Cardizem drip as well. She is afebrile no further complaints. 05/01/18- see note by JAMI Saenz NP 05/02/2018: Patient seen and examined. Patient states she is feeling much better overall. She states she has not been out of bed. She continues on Bumex drip. She states her wheezing and shortness of breath are resolving. She isn't currently on 2 L nasal cannula. She states that the oxygen did come off her period of time and she didn't feel more short of breath. However her oxygen saturation was not checked at that time. 05/03/18- seen examined and evaluated today on rounds. She is resting up on 2 L of supplemental oxygen via nasal cannula satting 9697%. The patient would like to take the oxygen off states she doesn't feel as if she needs it. We will trial the patient off of the oxygen and see how her saturations do. Spoke with cardiology HEALTH PROGRAM ANALYST we will be switching the patient from the Bumex drip to oral Bumex. This was discussed with the patient and the daughter as well. Her chest x-ray was reviewed from this morning and does show possible developing right lower lobe pneumonia with mild cardiomegaly. She will be started on antibiotics this is also discussed with the patient and the daughter. She has been afebrile no further complaints. Objective - Vital Signs Vital signs: Vital Signs Temp 98.5 F 05/03/18 07:47 Pulse 100 05/03/18 08:14 Resp 18 05/03/18 08:00 BP 156/98 05/03/18 07:47 Pulse Ox 95 05/03/18 07:47 Intake & Output 05/02/18 05/03/18 05/03/18 18:59 06:59 18:59 Intake Total 991.25 513.083 240 Output Total 500 2 Balance 491.25 511.083 240 Weight 88.6 kg Intake: IV 250 130 Bumetanide 12 mg In 100 80 Dextrose 5% in Water 192 ml @ 0.5 MG/HR 10 mls/hr IV .Q24H ОЛЕГ Rx#: [id number] Diltiazem 50 mg In Sodium 150 50 Chloride 0.9% 40 ml @ 10 MG/HR 10 mls/hr IV .Q5H ОЛЕГ Rx#:[id number] Intake, IV Titration 141.25 383.083 Amount Bumetanide 12 mg In 238.833 Dextrose 5% in Water 192 ml @ 0.5 MG/HR 10 mls/hr IV .Q24H ОЛЕГ Rx#: [id number] Diltiazem 50 mg In Sodium 141.25 144.25 Chloride 0.9% 40 ml @ 10 MG/HR 10 mls/hr IV .Q5H ОЛЕГ Rx#:[id number] Oral 600 240 Output: Urine 500 Urine/Stool Mix 2 Other: Voiding Method Bedside Commode Bedside Commode # Voids 2 - Exam Gen.: Patient is alert and oriented 3, no acute distress Cardiovascular: afib with RVR, S1, S2 Lungs: Bases dimished throughout Abdomen: Soft nontender nondistended positive bowel sounds Extremities: 1+ edema - Labs CBC & Chem 7: 05/03/18 05:29 05/03/18 05:29 Labs: Abnormal Lab Results - Last 24 Hours (Table) 05/02/18 05/02/18 05/02/18 Range/Units 11:33 16:51 21:12 Hct (34.0-46.0) % Plt Count (150-450) k/uL Chloride (98-107) mmol/L Carbon Dioxide (22-30) mmol/L BUN (7-17) mg/dL Creatinine (0.52-1.04) mg/dL Glucose (74-99) mg/dL POC Glucose (mg/dL) 130 H 179 H 201 H (75-99) mg/dL ALT (9-52) U/L Total Protein (6.3-8.2) g/dL Albumin (3.5-5.0) g/dL 05/03/18 05/03/18 05/03/18 Range/Units 05:29 05:29 05:46 Hct 46.1 H (34.0-46.0) % Plt Count 147 L (150-450) k/uL Chloride 96 L (98-107) mmol/L Carbon Dioxide 38 H (22-30) mmol/L BUN 58 H (7-17) mg/dL Creatinine 1.25 H (0.52-1.04) mg/dL Glucose 161 H (74-99) mg/dL POC Glucose (mg/dL) 157 H (75-99) mg/dL ALT 59 H (9-52) U/L Total Protein 5.8 L (6.3-8.2) g/dL Albumin 3.1 L (3.5-5.0) g/dL Assessment and Plan Assessment: Assessment: Acute hypoxic respiratory failure Acute exacerbation of CHF Paroxysmal atrial fibrillation Pulmonary vascular congestion COPD, not acutely exacerbated Chronic moderate to severe persistent asthma not acutely exacerbated Lower extremity edema Moderate protein calorie malnutrition Obesity Mild thrombocytopenia Developing right lower lobe pneumonia Plan Medications reviewed and will be continued as ordered Bumex drip has been discontinued and the patient has been switched over to oral Bumex Cardizem drip per cardiology Patient will be started on doxycycline for possible right lower lobe pneumonia O2 to maintain saturation greater than or equal to 90% Home oxygen assessment prior to discharge Duo nebs and Pulmicort Singulair Diuresis, currently on Bumex drip and Cardizem drip Monitor I's and O's Daily weights Echocardiogram reviewed Cardiology recommendations for possible heart catheterization once CHF is resolved Echocardiogram reviewed Incentive spirometry and pulmonary hygiene Increase activity as tolerated PT and OT, patient to be out of bed for meals GI and DVT prophylaxis We will continue to follow labs/reports and adjust treatment as necessary I performed an examination of the patient and discussed their management with the nurse practitioner. I have reviewed the nurse practitioner's note and agree with the documented findings and plan of care. <Linette Oreilly A - Last Filed: 05/03/18 14:14> Objective - Vital Signs Vital signs: Vital Signs Temp 98.5 F 05/03/18 07:47 Pulse 65 05/03/18 12:00 Resp 18 05/03/18 12:00 BP 140/87 05/03/18 12:00 Pulse Ox 91 L 05/03/18 12:00 Intake & Output 05/02/18 05/03/18 05/03/18 18:59 06:59 18:59 Intake Total 991.25 513.083 240 Output Total 500 2 Balance 491.25 511.083 240 Weight 88.6 kg Intake: IV 250 130 Bumetanide 12 mg In 100 80 Dextrose 5% in Water 192 ml @ 0.5 MG/HR 10 mls/hr IV .Q24H ОЛЕГ Rx#: [id number] Diltiazem 50 mg In Sodium 150 50 Chloride 0.9% 40 ml @ 10 MG/HR 10 mls/hr IV .Q5H ОЛЕГ Rx#:[id number] Intake, IV Titration 141.25 383.083 Amount Bumetanide 12 mg In 238.833 Dextrose 5% in Water 192 ml @ 0.5 MG/HR 10 mls/hr IV .Q24H ОЛЕГ Rx#: [id number] Diltiazem 50 mg In Sodium 141.25 144.25 Chloride 0.9% 40 ml @ 10 MG/HR 10 mls/hr IV .Q5H ОЛЕГ Rx#:[id number] Oral 600 240 Output: Urine 500 Urine/Stool Mix 2 Other: Voiding Method Bedside Commode Bedside Commode # Voids 2 - Labs CBC & Chem 7: 05/03/18 05:29 05/03/18 05:29 Labs: Abnormal Lab Results - Last 24 Hours (Table) 05/02/18 05/02/18 05/03/18 Range/Units 16:51 21:12 05:29 Hct 46.1 H (34.0-46.0) % Plt Count 147 L (150-450) k/uL Chloride (98-107) mmol/L Carbon Dioxide (22-30) mmol/L BUN (7-17) mg/dL Creatinine (0.52-1.04) mg/dL Glucose (74-99) mg/dL POC Glucose (mg/dL) 179 H 201 H (75-99) mg/dL ALT (9-52) U/L Total Protein (6.3-8.2) g/dL Albumin (3.5-5.0) g/dL 05/03/18 05/03/18 05/03/18 Range/Units 05:29 05:46 11:10 Hct (34.0-46.0) % Plt Count (150-450) k/uL Chloride 96 L (98-107) mmol/L Carbon Dioxide 38 H (22-30) mmol/L BUN 58 H (7-17) mg/dL Creatinine 1.25 H (0.52-1.04) mg/dL Glucose 161 H (74-99) mg/dL POC Glucose (mg/dL) 157 H 195 H (75-99) mg/dL ALT 59 H (9-52) U/L Total Protein 5.8 L (6.3-8.2) g/dL Albumin 3.1 L (3.5-5.0) g/dL Assessment and Plan Assessment: patient seen and examined. Patient states her breathing is much better. She is still on Bumex drip. This is discussed with cardiology and the patient will be transitioned to oral Bumex. We will try the patient off of oxygen and on room air. This is discussed with the patient's nurse. Discharge planning. ~Linette Oreilly DO
[2018-05-03 11:12] LABS: Glucose,Whole Blood 195 mg/dL (75-99)
[2018-05-03] MEDS: DOXYCYCLINE MONOHYDRATE 100 MG CAPSULE PO SCH ×2 (12:22→21:30)
--- NOTE | 2018-05-03 13:05 | P.PN ---
Subjective Progress Note Date: 05/03/18 This is a 82-year-old female with a known past medical history of paroxysmal atrial fibrillation, COPD, congestive heart failure and hypertension. Patient reports multiple medication ALLERGIES. Patient examined in the emergency room. She presents to the hospital with complaints of lower extremity edema and shortness of breath over the last week. Patient was recently started on gabapentin by the hematologist. She is under going rheumatology workup outpatient. Patient has been on the gabapentin for the past 3 weeks. And within the last week she's noticed increased swelling in her legs and shortness of breath. Initially she thought she was having an ALLERGIC reaction to the gabapentin. She presented to the emergency room for further evaluation and treatment. She was found to have elevated BNP 3390. Chest x-ray shows suspected CHF exacerbation on background of moderate to severe chronic emphysematous change as there is new mild cardiomegaly with small bilateral pleural effusions and likely new mild interstitial edema. She diagnosed with CHF exacerbation. Patient has ALLERGY to Lasix. Also had elevated blood pressure in the emergency room of 226/111. She was given hydrochlorothiazide and Aldactone. Also started on IV Solu-Medrol and bronchodilators for a COPD exacerbation. Pulmonary and cardiology have been consulted. Her oxygen saturation had dropped down into the 80s and she is currently on 3 L. Patient also reports urinary symptoms with urinary hesitancy. She has evidence of a UTI will be placed on Levaquin. She does penicillin and sulfa ALLERGY. Gabapentin discontinued. Patient denies any chest pain, cough, fever or chills or sweats. Denies any nausea or vomiting. Reports over the last day or 2 she' s had frequent stools but they are formed. She denies any headaches. Denies any lateralized weakness or numbness of the extremities. She does reports having some vision changes in both eyes lasting for a few minutes yesterday while looking out the window. Vision returned to normal after those few minutes. EKG normal sinus rhythm. Troponins negative. On 04/28/2018 patient is currently resting comfortably in bed on 2 L nasal cannula. 2-D echo completed showing EF between 55 and 60%. Patient denies chest pain. Does state some improvement shortness breath. Denies nausea vomiting or diarrhea. Denies any urinary burning or frequency. 04/29/2018 patient was apparently agitated this morning. She has calmed down this afternoon. Patient was placed on a Cardizem drip for elevated heart rate in the 120s this morning. She is also on Bumex for her CHF exacerbation. Echo was obtained showing an EF of 55-60%, there is a small generalized pericardial effusion present. No pulmonary hypertension. Patient is on 2 L satting at 96% 04/30/2018 patient sitting at the bedside chair. She required be placed back on Cardizem drip yesterday. Heart rate had been fluctuating between the 120s to 150s. She remains on the Bumex drip. Weight is trending down from a 97.3- 94 kg. Chest x-ray showing improving pleural effusion and no evidence of an infiltrate. Creatinine has gone up to 1.20. She is on clindamycin for UTI On 05/01/2018 patient is alert and oriented 3, complains of generalized joint pain, otherwise she denies any complaints at this time, shortness of breath has improved, she has been off naproxen due to elevated BUN and creatinine, and this has caused worsening of her joint pain, she is requesting Neurontin, and denying that she ever had any ALLERGY to that, at this time patient will be given 1 dose of oral prednisone she will be started on Tylenol 500 mg every 4 hours when necessary she will also be restarted on a low-dose Neurontin 100 mg twice daily Will monitor for any sign of ALLERGY. On 05/02/2018 patient is feeling better she is alert and oriented 3 her joint pain has improved she is requesting to have more prednisone today her shortness of breath has also improved there is no fever or chills no headache or dizziness no chest pain no cough no nausea or vomiting no abdominal pain and no urinary symptoms 05/03/2018 patient is having improvement in her lower extremity edema. Patient' s joint pain improved yesterday after being given a dose of prednisone Tylenol and Neurontin. Patient's lower extremity edema and shortness of breath or improving. Bumex was switched to oral. Creatinine has increased to 1.23. Eliquis started over the weekend per cardiology. Chest x-ray showing a developing right lower lobe pneumonia. Pulmonary's place patient on doxycycline. Patient does admit to a cough it's nonproductive. Objective - Vital Signs Vital signs: Vital Signs Temp 98.5 F 05/03/18 07:47 Pulse 65 05/03/18 12:00 Resp 18 05/03/18 12:00 BP 140/87 05/03/18 12:00 Pulse Ox 91 L 05/03/18 12:00 Intake & Output 05/02/18 05/03/18 05/03/18 18:59 06:59 18:59 Intake Total 991.25 513.083 240 Output Total 500 2 Balance 491.25 511.083 240 Weight 88.6 kg Intake: IV 250 130 Bumetanide 12 mg In 100 80 Dextrose 5% in Water 192 ml @ 0.5 MG/HR 10 mls/hr IV .Q24H ОЛЕГ Rx#: [id number] Diltiazem 50 mg In Sodium 150 50 Chloride 0.9% 40 ml @ 10 MG/HR 10 mls/hr IV .Q5H ОЛЕГ Rx#:[id number] Intake, IV Titration 141.25 383.083 Amount Bumetanide 12 mg In 238.833 Dextrose 5% in Water 192 ml @ 0.5 MG/HR 10 mls/hr IV .Q24H ОЛЕГ Rx#: [id number] Diltiazem 50 mg In Sodium 141.25 144.25 Chloride 0.9% 40 ml @ 10 MG/HR 10 mls/hr IV .Q5H ОЛЕГ Rx#:[id number] Oral 600 240 Output: Urine 500 Urine/Stool Mix 2 Other: Voiding Method Bedside Commode Bedside Commode # Voids 2 - Exam Head normocephalic Neck supple Lungs clear to auscultation bilaterally Heart regular rate and rhythm S1-S2, no rub or gallop Abdomen is soft nontender nondistended positive bowel sounds no hepatosplenomegaly Extremities improving lower extremity edema Neuro alert and orientated to 3 - Labs CBC & Chem 7: 05/03/18 05:29 05/03/18 05:29 Labs: Abnormal Lab Results - Last 24 Hours (Table) 05/02/18 05/02/18 05/03/18 Range/Units 16:51 21:12 05:29 Hct 46.1 H (34.0-46.0) % Plt Count 147 L (150-450) k/uL Chloride (98-107) mmol/L Carbon Dioxide (22-30) mmol/L BUN (7-17) mg/dL Creatinine (0.52-1.04) mg/dL Glucose (74-99) mg/dL POC Glucose (mg/dL) 179 H 201 H (75-99) mg/dL ALT (9-52) U/L Total Protein (6.3-8.2) g/dL Albumin (3.5-5.0) g/dL 05/03/18 05/03/18 05/03/18 Range/Units 05:29 05:46 11:10 Hct (34.0-46.0) % Plt Count (150-450) k/uL Chloride 96 L (98-107) mmol/L Carbon Dioxide 38 H (22-30) mmol/L BUN 58 H (7-17) mg/dL Creatinine 1.25 H (0.52-1.04) mg/dL Glucose 161 H (74-99) mg/dL POC Glucose (mg/dL) 157 H 195 H (75-99) mg/dL ALT 59 H (9-52) U/L Total Protein 5.8 L (6.3-8.2) g/dL Albumin 3.1 L (3.5-5.0) g/dL Assessment and Plan Assessment: 1. Acute hypoxic respiratory failure likely related to congestive heart failure exacerbation 2. Acute on chronic diastolic congestive heart failure exacerbation: Echo shows an EF of 55-60% and a small generalized pericardial effusion. Patient had elevated BNP on admission and CHF changes on chest x-ray. Patient has ALLERGY to Lasix. She was given Aldactone and hydrochlorothiazide in the ER. Patient is been switched over to oral Bumex twice a day 3. COPD: No evidence of exacerbation. Patient seen by pulmonary service. They 've discontinued the IV steroids. No evidence of pneumonia on chest x-ray 4. History of paroxysmal atrial fibrillation: Continue Coreg and Cardizem. Not on anticoagulation at home. Patient reports having ALLERGY to Eliquis and did not want to try any other blood thinners. EKG normal sinus rhythm 5. UTI: Urine culture E. coli. Patient completed antibiotic treatment for UTI 6. Hypertensive urgency on admission: Patient given hydrochlorothiazide and Aldactone in ER. Continue monitoring BP. Resume home medications. Followed by cardiology. They have increased Coreg to twice a day 7. Essential hypertension 8. Atrial fibrillation with rapid ventricular response: Cardiology has placed patient on Cardizem drip and was given a dose of IV digoxin. Continue to monitor. Cardiology added metoprolol and discontinued the Coreg. Patient started on Eliquis for anticoagulation 9. Generalized joint pain improved with the prednisone, Tylenol and gabapentin. GI prophylaxis Pepcid and DVT prophylaxis Eliquis I performed an examination of the patient and discussed their management with the physician Combination Building Inspector. I have reviewed the Physician Combination Building Inspector's notes and agree with the documented findings and plan of care
[2018-05-03] MEDS: BUMETANIDE 1 MG TAB PO SCH (15:53)
[2018-05-03 16:17] LABS: Glucose,Whole Blood 137 mg/dL (75-99)
--- NOTE | 2018-05-03 16:17 | P.PN ---
Subjective Progress Note Date: 05/03/18 This is a pleasant 82-year-old female who follows regularly with Dr. Holliday in the office. She has a known history of hypertension, COPD, proximal atrial fibrillation, patient states she was initiated on Eliquis in the past by Dr. Holliday, but had difficulty in breathing and for this reason she stopped it. Patient has multiple multiple ALLERGIES. She presents to the hospital on this occasion with symptoms of progressively worsening peripheral edema which she states has been going on for the past one week or so, she also states for the past few days she's been very short of breath, to the point where she feels she is unable to breathe at all. Her shortness of breath mainly occurs with exertion, even walking a very short distance to the bathroom. At rest her symptoms seemed to subside. Patient also states that she's been getting some discomfort in her upper back area between her scapula which she has been attributing to muscle pain. According to the patient, she states she had a stress test in the office performed by Dr. Holliday he told the patient that there was a shadow and recommended she undergo cardiac catheterization, patient decided at that time because it was only a shadow not to proceed with heart catheterization. Patient was recently started on a medication called gabapentin approximately 3 weeks ago, when the symptoms of swelling started in both legs she thought initially it was from that, because symptoms continued to worsen and she had no relief with her breathing treatments she came to the ER. Chest x-ray on admission here revealed CHF exacerbation on the background of moderate to severe emphysema, small bilateral pleural effusions were also noted. EKG on arrival here shows a normal sinus rhythm. Blood pressure on arrival 190/90, heart rate in the 70s, 92% on room air. Blood pressure this morning 150/90 with a heart rate in the 90s, 94% on 2 L of oxygen. White blood cell count is normal, hemoglobin 12.2, platelet count 116. Sodium 141, potassium 3.9, BUN 23, creatinine 0.7. Troponins have been negative 3. BNP level 3390. TSH level 0.19. The patient does have an ALLERGY to Lasix, she was given a dose of hydrochlorothiazide in the emergency room as well as Aldactone. 019. 04/29/2018 Patient seen and examined this morning, continues to feel somewhat short of breath. She is currently in atrial fibrillation with a moderately rapid ventricular response, blood pressure 120/70, heart rate in the low 100s to 110 range. 96% on nasal cannula at 2 L. White blood cell count 10.7, hemoglobin 12.5, platelet count 140. Sodium 141, potassium 3.8, BUN 34, creatinine 0.9. Patient appears to diurese well through the night last night although her weight is not reflective of the cyst morning. She was somewhat hesitant to take the Bumex because of her Lasix ALLERGY, she has had no reaction and BuSpar. Dr. Holliday's recommendation is to initiate Bumex drip today. 05/03/2018 Patient seen and examined this morning, showing improvement in her lower extremity edema. Shortness of breath improving. Bumex drip discontinued today , patient was initiated on oral. Creatinine 1.2 today. Patient has been initiated on Eliquis for anticoagulation, earlier today her heart rate was up in the 1 teens range. Currently in the 90s. We will increase her metoprolol 200 twice a day. Objective - Vital Signs Vital signs: Vital Signs Temp 97.2 F L 05/03/18 15:59 Pulse 104 H 05/03/18 16:05 Resp 18 05/03/18 15:59 BP 166/72 05/03/18 15:59 Pulse Ox 93 L 05/03/18 15:59 Intake & Output 05/02/18 05/03/18 05/03/18 18:59 06:59 18:59 Intake Total 991.25 513.083 290 Output Total 500 2 Balance 491.25 511.083 290 Weight 88.6 kg Intake: IV 250 130 Bumetanide 12 mg In 100 80 Dextrose 5% in Water 192 ml @ 0.5 MG/HR 10 mls/hr IV .Q24H [facility] Rx#: [id number] Diltiazem 50 mg In Sodium 150 50 Chloride 0.9% 40 ml @ 10 MG/HR 10 mls/hr IV .Q5H [facility] Rx#:[id number] Intake, IV Titration 141.25 383.083 50 Amount Bumetanide 12 mg In 238.833 Dextrose 5% in Water 192 ml @ 0.5 MG/HR 10 mls/hr IV .Q24H [facility] Rx#: [id number] Diltiazem 50 mg In Sodium 141.25 144.25 50 Chloride 0.9% 40 ml @ 10 MG/HR 10 mls/hr IV .Q5H [facility] Rx#:[id number] Oral 600 240 Output: Urine 500 Urine/Stool Mix 2 Other: Voiding Method Bedside Commode Bedside Commode # Voids 2 - Exam PHYSICAL EXAMINATION: GENERAL: 82-year-old female in no acute distress at the time of my examination HEENT: Head is atraumatic, normocephalic. Pupils equal, round. Sclera anicteric. Conjunctiva are clear. Mucous membranes of the mouth are moist. Neck is supple. There is elevated jugular venous pressure. No carotid bruit is heard. HEART EXAMINATION: Heart S1 S2 1 systolic murmur is heard. CHEST EXAMINATION: Lungs reveal diminished air entry bilaterally with rales heard at the bases ABDOMEN: Soft, nontender. Bowel sounds are heard. No organomegaly noted. EXTREMITIES:[ 2+ peripheral pulses with 2+ evidence of peripheral edema NEUROLOGIC patient is awake, alert and oriented X3 - Labs CBC & Chem 7: 05/03/18 05:29 05/03/18 05:29 Labs: Abnormal Lab Results - Last 24 Hours (Table) 05/02/18 05/02/18 05/03/18 Range/Units 16:51 21:12 05:29 Hct 46.1 H (34.0-46.0) % Plt Count 147 L (150-450) k/uL Chloride (98-107) mmol/L Carbon Dioxide (22-30) mmol/L BUN (7-17) mg/dL Creatinine (0.52-1.04) mg/dL Glucose (74-99) mg/dL POC Glucose (mg/dL) 179 H 201 H (75-99) mg/dL ALT (9-52) U/L Total Protein (6.3-8.2) g/dL Albumin (3.5-5.0) g/dL 05/03/18 05/03/18 05/03/18 Range/Units 05:29 05:46 11:10 Hct (34.0-46.0) % Plt Count (150-450) k/uL Chloride 96 L (98-107) mmol/L Carbon Dioxide 38 H (22-30) mmol/L BUN 58 H (7-17) mg/dL Creatinine 1.25 H (0.52-1.04) mg/dL Glucose 161 H (74-99) mg/dL POC Glucose (mg/dL) 157 H 195 H (75-99) mg/dL ALT 59 H (9-52) U/L Total Protein 5.8 L (6.3-8.2) g/dL Albumin 3.1 L (3.5-5.0) g/dL Assessment and Plan Plan: Assessment and plan #1 acute hypoxic respiratory failure, likely secondary congestive heart failure exacerbation, diastolic, acute on chronic, and COPD exacerbation. . #2 COPD history #3 paroxysmal atrial fibrillation, patient had stopped taking Eliquis because of symptoms of shortness of breath. #4 hypertensive urgency in a patient with history of hypertension #5 prior history of smoking #6 symptoms of exertional shortness of breath, possible angina. Patient was told to have had a positive stress test in the office and recommended to undergo cardiac catheterization which she refused at that time. Troponins negative 3. Plan Patient did have an echocardiogram with Doppler study performed which revealed an ejection fraction of 55-60%. Bumex drip has been discontinued, patient has been started on oral Bumex. Continue to monitor heart rate. Increase beta rios to 100 twice a day today. DNP note has been reviewed, I agree with a documented findings and plan of care. Patient was seen and examined.
[2018-05-03] MEDS: MONTELUKAST 10 MG TAB PO SCH (19:48)
[2018-05-03] MEDS: LATANOPROST 0.005% OPHTH DROPS 2.5 ML BTL RIGHT EYE SCH (19:48)
[2018-05-03 21:21] LABS: Glucose,Whole Blood 172 mg/dL (75-99)
[2018-05-04 06:15] LABS: Glucose,Whole Blood 110 mg/dL (75-99)
[2018-05-04] MEDS: INSULIN ASPART 100 UNIT/ML 1 ML 10 ML VIAL SQ SCH ×4 (06:22→21:49)
[2018-05-04 06:38] LABS: Basophils % (A) 0 %; Eosinophils # (A) 0.2 k/uL (0-0.7); Eosinophils % (A) 2 %; HCT 41.5 % (34.0-46.0); HGB 14.2 gm/dL (11.4-16.0); Lymphocytes # (A) 1.6 k/uL (1.0-4.8); Lymphocytes % (A) 16 %; MCH 33.2 pg (25.0-35.0); MCHC 34.2 g/dL (31.0-37.0); Mean Platelet Volume 8.4; Monocytes # (A) 0.7 k/uL (0-1.0); Monocytes % (A) 7 %; Neutrophils % (A) 73 %; Platelet Count 138 k/uL (150-450); RBC 4.28 m/uL (3.80-5.40); RDW 14.8 % (11.5-15.5); WBC 9.6 k/uL (3.8-10.6)
[2018-05-04 06:44] LABS: Albumin 2.9 g/dL (3.5-5.0); Calcium 8.8 mg/dL (8.4-10.2); Potassium 3.5 mmol/L (3.5-5.1); Total Bilirubin 1.2 mg/dL (0.2-1.3); Total Protein 5.3 g/dL (6.3-8.2)
[2018-05-04] MEDS: BUDESONIDE 0.5 MG/2 ML NEBU INHALATION SCH ×2 (07:14→20:02)
[2018-05-04] MEDS: IPRATROPIUM-ALBUTEROL 3 ML NEB INHALATION SCH ×4 (07:16→20:02)
[2018-05-04] MEDS: APIXABAN 2.5 MG TABLET PO SCH ×2 (08:11→21:48)
[2018-05-04] MEDS: METOPROLOL TARTRATE 50 MG TAB PO SCH ×2 (08:11→21:48)
[2018-05-04] MEDS: BUMETANIDE 1 MG TAB PO SCH ×2 (08:11→15:56)
[2018-05-04] MEDS: FAMOTIDINE 20 MG TAB PO SCH (08:11)
[2018-05-04] MEDS: DOXYCYCLINE MONOHYDRATE 100 MG CAPSULE PO SCH ×2 (08:11→21:49)
[2018-05-04] MEDS: GABAPENTIN 100 MG CAP PO SCH ×2 (08:12→21:48)
[2018-05-04] MEDS: CHOLECALCIFEROL 1,000 UNIT TAB PO SCH (08:14)
[2018-05-04] MEDS ORDERED: PROPOFOL 10 MG/ML 20 ML VIAL IV ONE (08:55)
[2018-05-04] MEDS: BENZOCAINE SPRAY 1 CAN MUCOUS MEM ONE ×2 (09:02→09:03)
[2018-05-04] MEDS ORDERED: IV FLUID CONTINUATION 1,000 ML IV ONE (09:14)
--- NOTE | 2018-05-04 11:20 | ECHOT ---
TRANSESOPHAGEAL ECHOCARDIOGRAM DATE OF SERVICE: 05/04/2018 PERFORMING PHYSICIAN: Gaston Trevizo MD. PROCEDURE PERFORMED: Transesophageal echocardiogram. INDICATION: This is a pleasant 82-year-old female patient who was admitted to the hospital with congestive heart failure exacerbation secondary to diastolic dysfunction as well as atrial fibrillation with rapid ventricular response. We tried agent medically in term of atrial fibrillation with RVR, but she continues to be in fast heart rate in the 120s and 130 beats per minute in spite of Cardizem IV and maximize medical treatment including beta rios p.o. Because of that, a CARINA and cardioversion was recommended. COMPLICATION: None. LEVEL OF SEDATION: Deep sedation was performed with EXHIBITS COORDINATOR and anesthesiologist in the room. PROCEDURE DESCRIPTION: After obtaining an informed consent, the patient was brought to the to the transesophageal echocardiogram suite. The pulse oximetry and heart rate monitors were attached to the patient. The patient was turned into left lateral position. Subsequently and after general anesthesia was induced, I did advance the transesophageal echocardiogram to the mid esophagus where 2D echocardiogram images as well as color Doppler images of various cardiac structures were obtained. Particular attention was paid to the left atrial appendage. The procedure was completed without any complication. FINDINGS: The left ventricular dimension and systolic function appeared to be within normal limits. The ejection fraction appeared to be about 50%. The right ventricle appeared to be mildly dilated. The left atrium and right atrium are moderately dilated. The left atrial appendage appeared to be free from any thrombus. The interatrial septum appeared to be intact by contrast study. The aortic valve is trileaflet valve without stenosis with trace insufficiency with the mitral valve seems to be mildly thickened with moderate MR. There was moderate tricuspid regurgitation seen. The pulmonic valve appeared to be structurally normal. No evidence of pericardial effusion identified. CONCLUSION: 1. Normal left atrial appendage without any evidence of thrombus. 2. Intact interatrial septum without any evidence of shunt. 3. Normal left ventricular dimension and systolic function. 4. Mildly dilated right ventricle with normal function. 5. Moderate biatrial enlargement. 6. Trileaflet aortic valve without stenosis with trace insufficiency. 7. Thickened mitral valve leaflets with moderate mitral regurgitation. 8. Moderate tricuspid regurgitation was seen. 9. Normal aortic root dimension. 10.No evidence of pericardial effusion. MMODL / IJN: [id number] /
[2018-05-04] MEDS: FLECAINIDE 50 MG TAB PO SCH ×2 (11:24→21:49)
--- NOTE | 2018-05-04 11:26 | CE ---
CARDIAC ELECTROPHYSIOLOGY REPORT DATE OF SERVICE: May 04, 2018 PERFORMING PHYSICIAN: Gaston Trevizo MD, airplane gastank liner assembler. PROCEDURE PERFORMED: Cardioversion of atrial fibrillation to normal sinus mechanism. INDICATION: This is a pleasant 82-year-old female patient who was admitted to the hospital with A. fib with RVR and she continues to be in a fast heart rate in spite of maximized her medical treatment. A CARINA and cardioversion was recommended. COMPLICATION: None. LEVEL OF SEDATION: The procedure was performed under general anesthesia with SENIOR INFORMATION SECURITY ANALYST and anesthesiologist in the room. PROCEDURE DESCRIPTION: After a transesophageal echocardiogram was performed and left atrial appendage thrombus was ruled out, we decided to pursue with a cardioversion. The patient converted from atrial fibrillation to normal sinus mechanism using 200 joules on first attempt. CONCLUSION: Successful cardioversion of atrial fibrillation to normal sinus mechanism using 200 joules on first attempt. POSTPROCEDURE MANAGEMENT: 1. Start the patient on antiarrhythmic medications flecainide. 2. Maximize her medical treatment. 3. Follow up with the patient. MMODL / IJN: [id number] /
[2018-05-04 11:35] LABS: Glucose,Whole Blood 116 mg/dL (75-99)
[2018-05-04] MEDS: SODIUM CHLORIDE 0.9% 1,000 ML IV SCH (13:45)
[2018-05-04] MEDS ORDERED: POTASSIUM CHLORIDE ER 20 MEQ TAB.ER PO STA (14:50)
--- NOTE | 2018-05-04 14:50 | P.PN ---
Subjective Progress Note Date: 05/04/18 This is a 82-year-old female with a known past medical history of paroxysmal atrial fibrillation, COPD, congestive heart failure and hypertension. Patient reports multiple medication ALLERGIES. Patient examined in the emergency room. She presents to the hospital with complaints of lower extremity edema and shortness of breath over the last week. Patient was recently started on gabapentin by the web production manager. She is under going rheumatology workup outpatient. Patient has been on the gabapentin for the past 3 weeks. And within the last week she's noticed increased swelling in her legs and shortness of breath. Initially she thought she was having an ALLERGIC reaction to the gabapentin. She presented to the emergency room for further evaluation and treatment. She was found to have elevated BNP 3390. Chest x-ray shows suspected CHF exacerbation on background of moderate to severe chronic emphysematous change as there is new mild cardiomegaly with small bilateral pleural effusions and likely new mild interstitial edema. She diagnosed with CHF exacerbation. Patient has ALLERGY to Lasix. Also had elevated blood pressure in the emergency room of 226/111. She was given hydrochlorothiazide and Aldactone. Also started on IV Solu-Medrol and bronchodilators for a COPD exacerbation. Pulmonary and cardiology have been consulted. Her oxygen saturation had dropped down into the 80s and she is currently on 3 L. Patient also reports urinary symptoms with urinary hesitancy. She has evidence of a UTI will be placed on Levaquin. She does penicillin and sulfa ALLERGY. Gabapentin discontinued. Patient denies any chest pain, cough, fever or chills or sweats. Denies any nausea or vomiting. Reports over the last day or 2 she' s had frequent stools but they are formed. She denies any headaches. Denies any lateralized weakness or numbness of the extremities. She does reports having some vision changes in both eyes lasting for a few minutes yesterday while looking out the window. Vision returned to normal after those few minutes. EKG normal sinus rhythm. Troponins negative. On 04/28/2018 patient is currently resting comfortably in bed on 2 L nasal cannula. 2-D echo completed showing EF between 55 and 60%. Patient denies chest pain. Does state some improvement shortness breath. Denies nausea vomiting or diarrhea. Denies any urinary burning or frequency. 04/29/2018 patient was apparently agitated this morning. She has calmed down this afternoon. Patient was placed on a Cardizem drip for elevated heart rate in the 120s this morning. She is also on Bumex for her CHF exacerbation. Echo was obtained showing an EF of 55-60%, there is a small generalized pericardial effusion present. No pulmonary hypertension. Patient is on 2 L satting at 96% 04/30/2018 patient sitting at the bedside chair. She required be placed back on Cardizem drip yesterday. Heart rate had been fluctuating between the 120s to 150s. She remains on the Bumex drip. Weight is trending down from a 97.3- 94 kg. Chest x-ray showing improving pleural effusion and no evidence of an infiltrate. Creatinine has gone up to 1.20. She is on clindamycin for UTI On 05/01/2018 patient is alert and oriented 3, complains of generalized joint pain, otherwise she denies any complaints at this time, shortness of breath has improved, she has been off naproxen due to elevated BUN and creatinine, and this has caused worsening of her joint pain, she is requesting Neurontin, and denying that she ever had any ALLERGY to that, at this time patient will be given 1 dose of oral prednisone she will be started on Tylenol 500 mg every 4 hours when necessary she will also be restarted on a low-dose Neurontin 100 mg twice daily Will monitor for any sign of ALLERGY. On 05/02/2018 patient is feeling better she is alert and oriented 3 her joint pain has improved she is requesting to have more prednisone today her shortness of breath has also improved there is no fever or chills no headache or dizziness no chest pain no cough no nausea or vomiting no abdominal pain and no urinary symptoms 05/03/2018 patient is having improvement in her lower extremity edema. Patient' s joint pain improved yesterday after being given a dose of prednisone Tylenol and Neurontin. Patient's lower extremity edema and shortness of breath or improving. Bumex was switched to oral. Creatinine has increased to 1.23. Eliquis started over the weekend per cardiology. Chest x-ray showing a developing right lower lobe pneumonia. Pulmonary's place patient on doxycycline. Patient does admit to a cough it's nonproductive. 05/04/2018 patient status post cardioversion she converted from atrial fibrillation to normal sinus rhythm. Cardiology has started her on flecainide. Cardizem drip was discontinued. Patient is on oral Bumex. Creatinine has decreased from 1.25-1.10. Slight increase in ALT from 59-66. Patient reports improvement in her shortness of breath and still having some lower extremity edema. Patient denies any chest pain or cough. Denies any nausea or vomiting. Denies any bowel movement changes or urinary symptoms. Objective - Vital Signs Vital signs: Vital Signs Temp 97.6 F 05/04/18 10:26 Pulse 78 05/04/18 13:56 Resp 20 05/04/18 13:56 BP 130/59 05/04/18 13:50 Pulse Ox 92 L 05/04/18 09:42 Intake & Output 05/03/18 05/04/18 05/04/18 18:59 06:59 18:59 Intake Total 340 395 290 Output Total 700 Balance 340 395 -410 Weight 88.7 kg Intake: IV 50 Intake, IV Titration 100 45 Amount Diltiazem 50 mg In Sodium 100 45 Chloride 0.9% 40 ml @ 10 MG/HR 10 mls/hr IV .Q5H [facility] Rx#:[id number] Oral 240 350 240 Output: Urine 700 Other: Voiding Method Bedside Commode Bedside Commode # Voids 1 # Bowel Movements 1 - Exam Head normocephalic Neck supple Lungs clear to auscultation bilaterally Heart regular rate and rhythm S1-S2, no rub or gallop Abdomen is soft nontender nondistended positive bowel sounds no hepatosplenomegaly Extremities improving lower extremity edema Neuro alert and orientated to 3 - Labs CBC & Chem 7: 05/04/18 06:06 05/04/18 06:06 Labs: Abnormal Lab Results - Last 24 Hours (Table) 05/03/18 05/03/18 05/04/18 Range/Units 16:15 21:20 06:06 Plt Count 138 L (150-450) k/uL Chloride (98-107) mmol/L Carbon Dioxide (22-30) mmol/L BUN (7-17) mg/dL Creatinine (0.52-1.04) mg/dL Glucose (74-99) mg/dL POC Glucose (mg/dL) 137 H 172 H (75-99) mg/dL ALT (9-52) U/L Total Protein (6.3-8.2) g/dL Albumin (3.5-5.0) g/dL 05/04/18 05/04/18 05/04/18 Range/Units 06:06 06:13 11:34 Plt Count (150-450) k/uL Chloride 96 L (98-107) mmol/L Carbon Dioxide 37 H (22-30) mmol/L BUN 59 H (7-17) mg/dL Creatinine 1.10 H (0.52-1.04) mg/dL Glucose 112 H (74-99) mg/dL POC Glucose (mg/dL) 110 H 116 H (75-99) mg/dL ALT 66 H (9-52) U/L Total Protein 5.3 L (6.3-8.2) g/dL Albumin 2.9 L (3.5-5.0) g/dL Assessment and Plan Assessment: 1. Acute hypoxic respiratory failure likely related to congestive heart failure exacerbation 2. Acute on chronic diastolic congestive heart failure exacerbation: Echo shows an EF of 55-60% and a small generalized pericardial effusion. Patient had elevated BNP on admission and CHF changes on chest x-ray. Patient has ALLERGY to Lasix. She was given Aldactone and hydrochlorothiazide in the ER. Continue oral Bumex 3. COPD: No evidence of exacerbation. Patient seen by pulmonary service. They 've discontinued the IV steroids. No evidence of pneumonia on chest x-ray 4. History of paroxysmal atrial fibrillation 5. UTI: Urine culture E. coli. Patient completed antibiotic treatment for UTI 6. Hypertensive urgency on admission: Patient given hydrochlorothiazide and Aldactone in ER. Continue monitoring BP. Resume home medications. Followed by cardiology. 7. Essential hypertension 8. Atrial fibrillation with rapid ventricular response: Patient underwent cardioversion and has converted from atrial fibrillation to normal sinus rhythm. She is off of Cardizem drip. And is currently on flecainide, metoprolol and Eliquis for anticoagulation 9. Generalized joint pain improved with the prednisone, Tylenol and gabapentin. 10. Possible pneumonia currently on doxycycline. Repeat chest x-ray in a.m. Pulmonary service following. 11. Acute kidney injury: Improved with switching IV Bumex to oral Bumex. Continue to monitor 12. Hypokalemia: We'll give potassium supplement Anticipate discharge home within the next 1-2 days GI prophylaxis Pepcid and DVT prophylaxis Eliquis I performed an examination of the patient and discussed their management with the physician Tooling Engineer. I have reviewed the Physician Tooling Engineer's notes and agree with the documented findings and plan of care
[2018-05-04 16:28] LABS: Glucose,Whole Blood 181 mg/dL (75-99)
[2018-05-04 21:02] LABS: Glucose,Whole Blood 134 mg/dL (75-99)
[2018-05-04] MEDS: MONTELUKAST 10 MG TAB PO SCH (21:49)
[2018-05-04] MEDS: LATANOPROST 0.005% OPHTH DROPS 2.5 ML BTL RIGHT EYE SCH (21:49)
[2018-05-05 06:15] LABS: Glucose,Whole Blood 103 mg/dL (75-99)
[2018-05-05 06:31] LABS: Basophils % (A) 0 %; Eosinophils # (A) 0.1 k/uL (0-0.7); Eosinophils % (A) 2 %; HCT 44.8 % (34.0-46.0); HGB 13.8 gm/dL (11.4-16.0); Lymphocytes # (A) 1.1 k/uL (1.0-4.8); Lymphocytes % (A) 15 %; MCH 30.7 pg (25.0-35.0); MCHC 30.9 g/dL (31.0-37.0); MCV 99.3 fL (80.0-100.0); Macrocytosis Slight; Mean Platelet Volume 7.6; Monocytes # (A) 0.5 k/uL (0-1.0); Monocytes % (A) 7 %; Neutrophils # (A) 5.5 k/uL (1.3-7.7); Neutrophils % (A) 75 %; Platelet Count 158 k/uL (150-450); RBC 4.51 m/uL (3.80-5.40); RDW 15.1 % (11.5-15.5); WBC 7.4 k/uL (3.8-10.6)
[2018-05-05 06:46] LABS: Albumin 2.8 g/dL (3.5-5.0); Calcium 8.6 mg/dL (8.4-10.2); Potassium 3.4 mmol/L (3.5-5.1); Total Bilirubin 1.4 mg/dL (0.2-1.3); Total Protein 5.2 g/dL (6.3-8.2)
[2018-05-05] MEDS: INSULIN ASPART 100 UNIT/ML 1 ML 10 ML VIAL SQ SCH ×4 (06:48→21:28)
[2018-05-05] MEDS: FAMOTIDINE 20 MG TAB PO SCH (07:56)
[2018-05-05] MEDS: FLECAINIDE 50 MG TAB PO SCH ×2 (07:56→21:27)
[2018-05-05] MEDS: APIXABAN 2.5 MG TABLET PO SCH ×2 (07:56→21:27)
[2018-05-05] MEDS: CHOLECALCIFEROL 1,000 UNIT TAB PO SCH (07:56)
[2018-05-05] MEDS: BUMETANIDE 1 MG TAB PO SCH ×2 (07:57→17:03)
[2018-05-05] MEDS: DOXYCYCLINE MONOHYDRATE 100 MG CAPSULE PO SCH ×2 (07:57→21:27)
[2018-05-05] MEDS: POTASSIUM CHLORIDE ER 20 MEQ TAB.ER PO SCH ×3 (08:00→15:26)
[2018-05-05] MEDS: IPRATROPIUM-ALBUTEROL 3 ML NEB INHALATION SCH ×4 (08:04→20:34)
[2018-05-05] MEDS: BUDESONIDE 0.5 MG/2 ML NEBU INHALATION SCH ×2 (08:04→20:34)
[2018-05-05] MEDS: GABAPENTIN 100 MG CAP PO SCH ×2 (08:11→21:28)
[2018-05-05] MEDS: METOPROLOL TARTRATE 50 MG TAB PO SCH ×3 (08:11→21:27)
--- NOTE | 2018-05-05 08:12 | XR ---
EXAMINATION TYPE: XR chest 2V DATE OF EXAM: 05/05/2018 COMPARISON: 05/02/2018 HISTORY: Shortness of breath TECHNIQUE: Frontal and lateral views of the chest are obtained. FINDINGS: Scattered senescent parenchymal changes noted. Hyperinflation compatible with COPD. No evidence for infiltrate. No evidence for atelectasis. Heart size is stable. Mediastinal structures are stable and grossly unremarkable. No evidence for hilar prominence. Degenerative changes dorsal spine. IMPRESSION: 1. No evidence for acute pulmonary disease.
--- NOTE | 2018-05-05 10:12 | P.PN ---
<Albertina Pérez E - Last Filed: 05/05/18 10:07> Subjective Progress Note Date: 05/05/18 History of present illness: This is an 82-year-old female who presented emergency department complaining of shortness of breath. The patient states this has been getting worse over the past few weeks. She did note worsening lower extremity edema however she states that she frequently has swelling and it usually goes away. She states this time it didn't seem to go away. She does have a known history of asthma and COPD. She takes Breo and Combivent at home. The patient has a history of atrial fibrillation and congestive heart failure as well. On chest x-ray she was found to have pulmonary vascular congestion and cardiomegaly. The patient is being seen by cardiology. She denies fevers and chills. She does not smoke. She has been hemodynamically stable. The patient apparently had a positive stress test on some outpatient but does not undergo cardiac catheterization. The patient is agreeable to proceed with that at this time. She also stopped taking Eliquis despite a history of paroxysmal atrial fibrillation. She felt it was making her breathing worse. Per the patient and her daughter the patient isn't got very short of breath even with minimal exertion at home. And this had been ongoing for several weeks. Interval History: 04/29/18- patient is being seen examined and evaluated today on rounds. She is resting up in bed on 2 L of supplemental oxygen via nasal cannula. Upon examination the patient is somewhat agitated. States that she is frustrated with her health care at this point. He states she does not like people changing her medications, it is explained to the patient any change in medication is only to help treat her current health issues and is in her best interest. She has had some tachycardia this morning rates in the 120s, currently she is on a Cardizem drip for that. She states her shortness of breath is improving slightly however still gets short of breath with any activity and exertion. She has a chronic cough. Echocardiogram was obtained EF 55-60%, there is a small generalized pericardial effusion present, no evidence of pulmonary hypertension. Daughter is at bedside updated on plan of care. 04/30/18- patient is being seen examined and evaluated today on rounds he is resting up in bed on 2 L of supplemental oxygen via nasal cannula. She did undergo a chest x-ray this morning that did read demonstrate chronic emphysematous changes and mild cardiomegaly with interval resolution of tiny bilateral pleural effusions. No new suspicious focal infiltrate was present. Patient does state her breathing is somewhat improved today. She is less short of breath. She has been put on a Bumex drip and continues on her Cardizem drip as well. She is afebrile no further complaints. 05/01/18- see note by JAMI Saenz NP 05/02/2018: Patient seen and examined. Patient states she is feeling much better overall. She states she has not been out of bed. She continues on Bumex drip. She states her wheezing and shortness of breath are resolving. She isn't currently on 2 L nasal cannula. She states that the oxygen did come off her period of time and she didn't feel more short of breath. However her oxygen saturation was not checked at that time. 05/03/18- seen examined and evaluated today on rounds. She is resting up on 2 L of supplemental oxygen via nasal cannula satting [id number]%. The patient would like to take the oxygen off states she doesn't feel as if she needs it. We will trial the patient off of the oxygen and see how her saturations do. Spoke with cardiology A&P TECHNICIAN we will be switching the patient from the Bumex drip to oral Bumex. This was discussed with the patient and the daughter as well. Her chest x-ray was reviewed from this morning and does show possible developing right lower lobe pneumonia with mild cardiomegaly. She will be started on antibiotics this is also discussed with the patient and the daughter. She has been afebrile no further complaints. 05/04/18- patient was not seen, due to her being in cardiac procedure 05/05/2018patient did undergo a cardioversion procedure yesterday which did put her back into a normal sinus rhythm. However overnight the patient has switched back into atrial fibrillation and cardiology is aware. Upon examination the patient is resting up in bed on room air. She has not required oxygen and over 2 days. She feels her breathing is stable and at baseline. She feels her swelling in her bilateral lower extremities is also improving. All labs and reports have been reviewed. She is noted to have a potassium of 3.4 which is being replaced. She did have a chest x-ray this morning which was negative for any acute pulmonary process. Daughter at bedside updated on plan of care Objective - Vital Signs Vital signs: Vital Signs Temp 97.3 F L 05/05/18 00:00 Pulse 88 05/05/18 08:25 Resp 18 05/05/18 08:00 BP 150/82 05/05/18 04:00 Pulse Ox 91 L 05/05/18 04:00 Intake & Output 05/04/18 05/05/18 05/05/18 18:59 06:59 18:59 Intake Total 880 240 Output Total 700 Balance 180 240 Weight 89.5 kg Intake: IV 50 Oral 830 240 Output: Urine 700 Other: Voiding Method Bedside Commode Bedside Commode Bedside Commode # Voids 1 # Bowel Movements 1 - Exam Gen.: Patient is alert and oriented 3, no acute distress Cardiovascular: afib with RVR, S1, S2 Lungs: Bases dimished bilaterally, improving aeration overall Abdomen: Soft nontender nondistended positive bowel sounds Extremities: 1+ edema, improving - Labs CBC & Chem 7: 05/05/18 05:36 05/05/18 05:36 Labs: Abnormal Lab Results - Last 24 Hours (Table) 05/04/18 05/04/18 05/04/18 Range/Units 11:34 16:26 21:01 MCHC (31.0-37.0) g/dL Potassium (3.5-5.1) mmol/L Carbon Dioxide (22-30) mmol/L BUN (7-17) mg/dL Creatinine (0.52-1.04) mg/dL Glucose (74-99) mg/dL POC Glucose (mg/dL) 116 H 181 H 134 H (75-99) mg/dL Total Bilirubin (0.2-1.3) mg/dL ALT (9-52) U/L Total Protein (6.3-8.2) g/dL Albumin (3.5-5.0) g/dL 05/05/18 05/05/18 05/05/18 Range/Units 05:36 05:36 06:14 MCHC 30.9 L (31.0-37.0) g/dL Potassium 3.4 L (3.5-5.1) mmol/L Carbon Dioxide 37 H (22-30) mmol/L BUN 54 H (7-17) mg/dL Creatinine 1.21 H (0.52-1.04) mg/dL Glucose 103 H (74-99) mg/dL POC Glucose (mg/dL) 103 H (75-99) mg/dL Total Bilirubin 1.4 H (0.2-1.3) mg/dL ALT 60 H (9-52) U/L Total Protein 5.2 L (6.3-8.2) g/dL Albumin 2.8 L (3.5-5.0) g/dL Assessment and Plan Assessment: Assessment: Acute hypoxic respiratory failure Acute exacerbation of CHF Paroxysmal atrial fibrillation Pulmonary vascular congestion COPD, not acutely exacerbated Chronic moderate to severe persistent asthma not acutely exacerbated Lower extremity edema Moderate protein calorie malnutrition Obesity Mild thrombocytopenia Developing right lower lobe pneumonia Plan Medications reviewed and will be continued as ordered Pulmonary status is stable oral Bumex for diuresis Patient is status post cardioversion Patient was started on doxycycline for possible right lower lobe pneumonia, cxr improved O2 to maintain saturation greater than or equal to 90% Duo nebs and Pulmicort Singulair Monitor I's and O's Daily weights Echocardiogram reviewed Cardiology recommendations for possible heart catheterization once CHF is resolved Echocardiogram reviewed Incentive spirometry and pulmonary hygiene Increase activity as tolerated PT and OT, patient to be out of bed for meals GI and DVT prophylaxis We will continue to follow labs/reports and adjust treatment as necessary Discharge planning underway I performed an examination of the patient and discussed their management with the nurse practitioner. I have reviewed the nurse practitioner's note and agree with the documented findings and plan of care. <Linette Oreilly A - Last Filed: 05/05/18 13:09> Objective - Vital Signs Vital signs: Vital Signs Temp 97.8 F 05/05/18 08:00 Pulse 112 H 05/05/18 11:57 Resp 18 05/05/18 08:00 BP 174/82 05/05/18 08:00 Pulse Ox 94 L 05/05/18 08:00 Intake & Output 05/04/18 05/05/18 05/05/18 18:59 06:59 18:59 Intake Total 880 240 Output Total 700 Balance 180 240 Weight 89.5 kg Intake: IV 50 Oral 830 240 Output: Urine 700 Other: Voiding Method Bedside Commode Bedside Commode Bedside Commode # Voids 1 # Bowel Movements 1 - Labs CBC & Chem 7: 05/05/18 05:36 05/05/18 05:36 Labs: Abnormal Lab Results - Last 24 Hours (Table) 05/04/18 05/04/18 05/05/18 Range/Units 16:26 21:01 05:36 MCHC 30.9 L (31.0-37.0) g/dL Potassium (3.5-5.1) mmol/L Carbon Dioxide (22-30) mmol/L BUN (7-17) mg/dL Creatinine (0.52-1.04) mg/dL Glucose (74-99) mg/dL POC Glucose (mg/dL) 181 H 134 H (75-99) mg/dL Total Bilirubin (0.2-1.3) mg/dL ALT (9-52) U/L Total Protein (6.3-8.2) g/dL Albumin (3.5-5.0) g/dL 05/05/18 05/05/18 05/05/18 Range/Units 05:36 06:14 11:30 MCHC (31.0-37.0) g/dL Potassium 3.4 L (3.5-5.1) mmol/L Carbon Dioxide 37 H (22-30) mmol/L BUN 54 H (7-17) mg/dL Creatinine 1.21 H (0.52-1.04) mg/dL Glucose 103 H (74-99) mg/dL POC Glucose (mg/dL) 103 H 128 H (75-99) mg/dL Total Bilirubin 1.4 H (0.2-1.3) mg/dL ALT 60 H (9-52) U/L Total Protein 5.2 L (6.3-8.2) g/dL Albumin 2.8 L (3.5-5.0) g/dL Assessment and Plan Assessment: Patient seen and examined. Patient had afib with RVR overnight. Cardiology is on consult. She states her breathing is getting better overall. PT and OT. Encourage ambulation. ~Linette Oreilly DO
[2018-05-05 11:33] LABS: Glucose,Whole Blood 128 mg/dL (75-99)
[2018-05-05] MEDS: SODIUM CHLORIDE 0.9% 1,000 ML IV SCH (12:26)
--- NOTE | 2018-05-05 14:32 | P.PN ---
Subjective Progress Note Date: 05/05/18 This is a pleasant 82-year-old female who follows regularly with Dr. Holliday in the office. She has a known history of hypertension, COPD, proximal atrial fibrillation, patient states she was initiated on Eliquis in the past by Dr. Holliday, but had difficulty in breathing and for this reason she stopped it. Patient has multiple multiple ALLERGIES. She presents to the hospital on this occasion with symptoms of progressively worsening peripheral edema which she states has been going on for the past one week or so, she also states for the past few days she's been very short of breath, to the point where she feels she is unable to breathe at all. Her shortness of breath mainly occurs with exertion, even walking a very short distance to the bathroom. At rest her symptoms seemed to subside. Patient also states that she's been getting some discomfort in her upper back area between her scapula which she has been attributing to muscle pain. According to the patient, she states she had a stress test in the office performed by Dr. Holliday he told the patient that there was a shadow and recommended she undergo cardiac catheterization, patient decided at that time because it was only a shadow not to proceed with heart catheterization. Patient was recently started on a medication called gabapentin approximately 3 weeks ago, when the symptoms of swelling started in both legs she thought initially it was from that, because symptoms continued to worsen and she had no relief with her breathing treatments she came to the ER. Chest x-ray on admission here revealed CHF exacerbation on the background of moderate to severe emphysema, small bilateral pleural effusions were also noted. EKG on arrival here shows a normal sinus rhythm. Blood pressure on arrival 190/90, heart rate in the 70s, 92% on room air. Blood pressure this morning 150/90 with a heart rate in the 90s, 94% on 2 L of oxygen. White blood cell count is normal, hemoglobin 12.2, platelet count 116. Sodium 141, potassium 3.9, BUN 23, creatinine 0.7. Troponins have been negative 3. BNP level 3390. TSH level 0.19. The patient does have an ALLERGY to Lasix, she was given a dose of hydrochlorothiazide in the emergency room as well as Aldactone. 019. 04/29/2018 Patient seen and examined this morning, continues to feel somewhat short of breath. She is currently in atrial fibrillation with a moderately rapid ventricular response, blood pressure 120/70, heart rate in the low 100s to 110 range. 96% on nasal cannula at 2 L. White blood cell count 10.7, hemoglobin 12.5, platelet count 140. Sodium 141, potassium 3.8, BUN 34, creatinine 0.9. Patient appears to diurese well through the night last night although her weight is not reflective of the cyst morning. She was somewhat hesitant to take the Bumex because of her Lasix ALLERGY, she has had no reaction and BuSpar. Dr. Holliday's recommendation is to initiate Bumex drip today. 05/03/2018 Patient seen and examined this morning, showing improvement in her lower extremity edema. Shortness of breath improving. Bumex drip discontinued today , patient was initiated on oral. Creatinine 1.2 today. Patient has been initiated on Eliquis for anticoagulation, earlier today her heart rate was up in the 1 teens range. Currently in the 90s. We will increase her metoprolol 200 twice a day. 05/05/2018 Patioent underwent [place] and cardioversion yesterday converted to normal sinus rhythm, this morning she went back into atrial fibrillation with a moderately rapid ventricular response. Patient states that she overall did feel better when she was in a normal sinus rhythm. Dr. Guillermo seen and examined the patient today and suggested a possible consultation with Dr. Espana for ablation, patient is willing to proceed. This point we will continue her other current medications. Objective - Vital Signs Vital signs: Vital Signs Temp 97.8 F 05/05/18 08:00 Pulse 110 H 05/05/18 12:00 Resp 18 05/05/18 12:00 BP 174/82 05/05/18 08:00 Pulse Ox 94 L 05/05/18 08:00 Intake & Output 05/04/18 05/05/18 05/05/18 18:59 06:59 18:59 Intake Total 880 600 Output Total 700 Balance 180 600 Weight 89.5 kg Intake: IV 50 Oral 830 600 Output: Urine 700 Other: Voiding Method Bedside Commode Bedside Commode Bedside Commode # Voids 1 1 # Bowel Movements 1 - Exam PHYSICAL EXAMINATION: GENERAL: 82-year-old female in no acute distress at the time of my examination HEENT: Head is atraumatic, normocephalic. Pupils equal, round. Sclera anicteric. Conjunctiva are clear. Mucous membranes of the mouth are moist. Neck is supple. There is elevated jugular venous pressure. No carotid bruit is heard. HEART EXAMINATION: Heart S1 S2 1 systolic murmur is heard. CHEST EXAMINATION: Lungs reveal diminished air entry bilaterally with rales heard at the bases ABDOMEN: Soft, nontender. Bowel sounds are heard. No organomegaly noted. EXTREMITIES:[ 2+ peripheral pulses with 2+ evidence of peripheral edema NEUROLOGIC patient is awake, alert and oriented X3 - Labs CBC & Chem 7: 05/05/18 05:36 05/05/18 05:36 Labs: Abnormal Lab Results - Last 24 Hours (Table) 05/04/18 05/04/18 05/05/18 Range/Units 16:26 21:01 05:36 MCHC 30.9 L (31.0-37.0) g/dL Potassium (3.5-5.1) mmol/L Carbon Dioxide (22-30) mmol/L BUN (7-17) mg/dL Creatinine (0.52-1.04) mg/dL Glucose (74-99) mg/dL POC Glucose (mg/dL) 181 H 134 H (75-99) mg/dL Total Bilirubin (0.2-1.3) mg/dL ALT (9-52) U/L Total Protein (6.3-8.2) g/dL Albumin (3.5-5.0) g/dL 05/05/18 05/05/18 05/05/18 Range/Units 05:36 06:14 11:30 MCHC (31.0-37.0) g/dL Potassium 3.4 L (3.5-5.1) mmol/L Carbon Dioxide 37 H (22-30) mmol/L BUN 54 H (7-17) mg/dL Creatinine 1.21 H (0.52-1.04) mg/dL Glucose 103 H (74-99) mg/dL POC Glucose (mg/dL) 103 H 128 H (75-99) mg/dL Total Bilirubin 1.4 H (0.2-1.3) mg/dL ALT 60 H (9-52) U/L Total Protein 5.2 L (6.3-8.2) g/dL Albumin 2.8 L (3.5-5.0) g/dL Assessment and Plan Plan: Assessment and plan #1 acute hypoxic respiratory failure, likely secondary congestive heart failure exacerbation, diastolic, acute on chronic, and COPD exacerbation. . #2 COPD history #3 paroxysmal atrial fibrillation, patient had stopped taking Eliquis because of symptoms of shortness of breath. #4 hypertensive urgency in a patient with history of hypertension #5 prior history of smoking #6 symptoms of exertional shortness of breath, possible angina. Patient was told to have had a positive stress test in the office and recommended to undergo cardiac catheterization which she refused at that time. Troponins negative 3. #7 status post elective cardioversion Plan Patient is back in atrial fibrillation today, at this point we will continue her current medications. We are also consult Dr. Espana to see the patient for possible ablation. DNP note has been reviewed, I agree with a documented findings and plan of care. Patient was seen and examined.
[2018-05-05 15:16] VITALS: BMI 31.4
--- NOTE | 2018-05-05 15:34 | P.PN ---
Subjective Progress Note Date: 05/05/18 This is a 82-year-old female with a known past medical history of paroxysmal atrial fibrillation, COPD, congestive heart failure and hypertension. Patient reports multiple medication ALLERGIES. Patient examined in the emergency room. She presents to the hospital with complaints of lower extremity edema and shortness of breath over the last week. Patient was recently started on gabapentin by the revenue analyst. She is under going rheumatology workup outpatient. Patient has been on the gabapentin for the past 3 weeks. And within the last week she's noticed increased swelling in her legs and shortness of breath. Initially she thought she was having an ALLERGIC reaction to the gabapentin. She presented to the emergency room for further evaluation and treatment. She was found to have elevated BNP 3390. Chest x-ray shows suspected CHF exacerbation on background of moderate to severe chronic emphysematous change as there is new mild cardiomegaly with small bilateral pleural effusions and likely new mild interstitial edema. She diagnosed with CHF exacerbation. Patient has ALLERGY to Lasix. Also had elevated blood pressure in the emergency room of 226/111. She was given hydrochlorothiazide and Aldactone. Also started on IV Solu-Medrol and bronchodilators for a COPD exacerbation. Pulmonary and cardiology have been consulted. Her oxygen saturation had dropped down into the 80s and she is currently on 3 L. Patient also reports urinary symptoms with urinary hesitancy. She has evidence of a UTI will be placed on Levaquin. She does penicillin and sulfa ALLERGY. Gabapentin discontinued. Patient denies any chest pain, cough, fever or chills or sweats. Denies any nausea or vomiting. Reports over the last day or 2 she' s had frequent stools but they are formed. She denies any headaches. Denies any lateralized weakness or numbness of the extremities. She does reports having some vision changes in both eyes lasting for a few minutes yesterday while looking out the window. Vision returned to normal after those few minutes. EKG normal sinus rhythm. Troponins negative. On 04/28/2018 patient is currently resting comfortably in bed on 2 L nasal cannula. 2-D echo completed showing EF between 55 and 60%. Patient denies chest pain. Does state some improvement shortness breath. Denies nausea vomiting or diarrhea. Denies any urinary burning or frequency. 04/29/2018 patient was apparently agitated this morning. She has calmed down this afternoon. Patient was placed on a Cardizem drip for elevated heart rate in the 120s this morning. She is also on Bumex for her CHF exacerbation. Echo was obtained showing an EF of 55-60%, there is a small generalized pericardial effusion present. No pulmonary hypertension. Patient is on 2 L satting at 96% 04/30/2018 patient sitting at the bedside chair. She required be placed back on Cardizem drip yesterday. Heart rate had been fluctuating between the 120s to 150s. She remains on the Bumex drip. Weight is trending down from a 97.3- 94 kg. Chest x-ray showing improving pleural effusion and no evidence of an infiltrate. Creatinine has gone up to 1.20. She is on clindamycin for UTI On 05/01/2018 patient is alert and oriented 3, complains of generalized joint pain, otherwise she denies any complaints at this time, shortness of breath has improved, she has been off naproxen due to elevated BUN and creatinine, and this has caused worsening of her joint pain, she is requesting Neurontin, and denying that she ever had any ALLERGY to that, at this time patient will be given 1 dose of oral prednisone she will be started on Tylenol 500 mg every 4 hours when necessary she will also be restarted on a low-dose Neurontin 100 mg twice daily Will monitor for any sign of ALLERGY. On 05/02/2018 patient is feeling better she is alert and oriented 3 her joint pain has improved she is requesting to have more prednisone today her shortness of breath has also improved there is no fever or chills no headache or dizziness no chest pain no cough no nausea or vomiting no abdominal pain and no urinary symptoms 05/03/2018 patient is having improvement in her lower extremity edema. Patient' s joint pain improved yesterday after being given a dose of prednisone Tylenol and Neurontin. Patient's lower extremity edema and shortness of breath or improving. Bumex was switched to oral. Creatinine has increased to 1.23. Eliquis started over the weekend per cardiology. Chest x-ray showing a developing right lower lobe pneumonia. Pulmonary's place patient on doxycycline. Patient does admit to a cough it's nonproductive. 05/04/2018 patient status post cardioversion she converted from atrial fibrillation to normal sinus rhythm. Cardiology has started her on flecainide. Cardizem drip was discontinued. Patient is on oral Bumex. Creatinine has decreased from 1.25-1.10. Slight increase in ALT from 59-66. Patient reports improvement in her shortness of breath and still having some lower extremity edema. Patient denies any chest pain or cough. Denies any nausea or vomiting. Denies any bowel movement changes or urinary symptoms. On 05/05/2018 patient underwent [facility] and cardioversion yesterday converted to normal sinus rhythm however this morning patient went back into atrial fibrillation with moderately rapid ventricular response. Cardiology Dr. Espana has been reconsulted for possible ablation. Patient is currently alert and oriented 3. Patient denies chest pain or shortness of breath. Patient denies nausea vomiting or diarrhea. Patient denies any urinary burning or frequency Objective - Vital Signs Vital signs: Vital Signs Temp 97.8 F 05/05/18 08:00 Pulse 110 H 05/05/18 12:00 Resp 18 05/05/18 12:00 BP 174/82 05/05/18 08:00 Pulse Ox 94 L 05/05/18 08:00 Intake & Output 05/04/18 05/05/18 05/05/18 18:59 06:59 18:59 Intake Total 880 600 Output Total 700 Balance 180 600 Weight 89.5 kg 89.5 kg Intake: IV 50 Oral 830 600 Output: Urine 700 Other: Voiding Method Bedside Commode Bedside Commode Bedside Commode # Voids 1 1 # Bowel Movements 1 - Exam Head normocephalic Neck supple Lungs crackles left lower lobe with faint scattered wheezing Heart regular rate and rhythm S1-S2, no rub or gallop Abdomen is soft nontender nondistended positive bowel sounds no hepatosplenomegaly Extremities no edema Neuro alert and orientated to 3 - Labs CBC & Chem 7: 05/05/18 05:36 05/05/18 05:36 Labs: Abnormal Lab Results - Last 24 Hours (Table) 05/04/18 05/04/18 05/05/18 Range/Units 16:26 21:01 05:36 MCHC 30.9 L (31.0-37.0) g/dL Potassium (3.5-5.1) mmol/L Carbon Dioxide (22-30) mmol/L BUN (7-17) mg/dL Creatinine (0.52-1.04) mg/dL Glucose (74-99) mg/dL POC Glucose (mg/dL) 181 H 134 H (75-99) mg/dL Total Bilirubin (0.2-1.3) mg/dL ALT (9-52) U/L Total Protein (6.3-8.2) g/dL Albumin (3.5-5.0) g/dL 05/05/18 05/05/18 05/05/18 Range/Units 05:36 06:14 11:30 MCHC (31.0-37.0) g/dL Potassium 3.4 L (3.5-5.1) mmol/L Carbon Dioxide 37 H (22-30) mmol/L BUN 54 H (7-17) mg/dL Creatinine 1.21 H (0.52-1.04) mg/dL Glucose 103 H (74-99) mg/dL POC Glucose (mg/dL) 103 H 128 H (75-99) mg/dL Total Bilirubin 1.4 H (0.2-1.3) mg/dL ALT 60 H (9-52) U/L Total Protein 5.2 L (6.3-8.2) g/dL Albumin 2.8 L (3.5-5.0) g/dL Assessment and Plan Assessment: 1. Acute hypoxic respiratory failure likely related to congestive heart failure exacerbation 2. Acute on chronic diastolic congestive heart failure exacerbation: Echo shows an EF of 55-60% and a small generalized pericardial effusion. Patient had elevated BNP on admission and CHF changes on chest x-ray. Patient has ALLERGY to Lasix. She was given Aldactone and hydrochlorothiazide in the ER. Continue oral Bumex 3. COPD: No evidence of exacerbation. Patient seen by pulmonary service. They 've discontinued the IV steroids. No evidence of pneumonia on chest x-ray 4. History of paroxysmal atrial fibrillation 5. UTI: Urine culture E. coli. Patient completed antibiotic treatment for UTI 6. Hypertensive urgency on admission: Patient given hydrochlorothiazide and Aldactone in ER. Continue monitoring BP. Resume home medications. Followed by cardiology. 7. Essential hypertension 8. Atrial fibrillation with rapid ventricular response: Patient underwent cardioversion and has converted from atrial fibrillation to normal sinus rhythm. She is off of Cardizem drip. And is currently on flecainide, metoprolol and Eliquis for anticoagulation. This a.m. the 29th patient went back into atrial fibrillation with rapid ventricular response. Dr. Espana has been reconsulted per cardiology for possible ablation. Lopressor has been increased to 100 mg 3 times a day per cardiology 9. Generalized joint pain improved with the prednisone, Tylenol and gabapentin. 10. Possible pneumonia currently on doxycycline. Pulmonary service following. X-ray completed showing no evidence for acute pulmonary disease 11. Acute kidney injury: Improved with switching IV Bumex to oral Bumex. Continue to monitor 12. Hypokalemia: We'll give potassium supplement. Potassium 3.4. Replacement per protocol GI prophylaxis Pepcid and DVT prophylaxis Eliquis I performed an examination of the patient and discussed their management with the Nurse Practitioner. I have reviewed the Nurse Practitioner's notes and agree with the documented findings and plan of care
[2018-05-05 16:53] LABS: Glucose,Whole Blood 158 mg/dL (75-99)
[2018-05-05 20:29] LABS: Glucose,Whole Blood 209 mg/dL (75-99)
[2018-05-05] MEDS: LATANOPROST 0.005% OPHTH DROPS 2.5 ML BTL RIGHT EYE SCH (21:27)
[2018-05-05] MEDS: MONTELUKAST 10 MG TAB PO SCH (21:28)
[2018-05-06 06:07] LABS: Basophils % (A) 1 %; Eosinophils # (A) 0.1 k/uL (0-0.7); Eosinophils % (A) 1 %; HCT 43.6 % (34.0-46.0); Lymphocytes # (A) 1.4 k/uL (1.0-4.8); Lymphocytes % (A) 16 %; MCH 29.7 pg (25.0-35.0); MCHC 29.8 g/dL (31.0-37.0); MCV 99.9 fL (80.0-100.0); Macrocytosis Slight; Mean Platelet Volume 7.6; Monocytes # (A) 0.6 k/uL (0-1.0); Monocytes % (A) 6 %; Neutrophils # (A) 6.5 k/uL (1.3-7.7); Neutrophils % (A) 74 %; Platelet Count 167 k/uL (150-450); RBC 4.37 m/uL (3.80-5.40); RDW 15.5 % (11.5-15.5); WBC 8.8 k/uL (3.8-10.6)
[2018-05-06 06:20] LABS: Glucose,Whole Blood 98 mg/dL (75-99)
[2018-05-06 06:21] LABS: Albumin 2.7 g/dL (3.5-5.0); Calcium 8.7 mg/dL (8.4-10.2); Magnesium 1.4 mg/dL (1.6-2.3); Potassium 3.5 mmol/L (3.5-5.1); Total Bilirubin 1.1 mg/dL (0.2-1.3); Total Protein 5.1 g/dL (6.3-8.2)
[2018-05-06] MEDS: INSULIN ASPART 100 UNIT/ML 1 ML 10 ML VIAL SQ SCH ×4 (06:27→21:40)
[2018-05-06] MEDS: DOXYCYCLINE MONOHYDRATE 100 MG CAPSULE PO SCH ×2 (08:36→21:39)
[2018-05-06] MEDS: BUMETANIDE 1 MG TAB PO SCH ×2 (08:36→21:33)
[2018-05-06] MEDS: CHOLECALCIFEROL 1,000 UNIT TAB PO SCH (08:37)
[2018-05-06] MEDS: GABAPENTIN 100 MG CAP PO SCH ×2 (08:38→21:39)
[2018-05-06] MEDS: METOPROLOL TARTRATE 50 MG TAB PO SCH ×3 (08:38→21:36)
[2018-05-06] MEDS: APIXABAN 2.5 MG TABLET PO SCH ×2 (08:38→21:39)
[2018-05-06] MEDS: FLECAINIDE 50 MG TAB PO SCH (08:39)
[2018-05-06] MEDS: FAMOTIDINE 20 MG TAB PO SCH (08:39)
[2018-05-06] MEDS: SODIUM CHLORIDE 0.9% 1,000 ML IV SCH ×4 (08:44→23:09)
[2018-05-06] MEDS: BUDESONIDE 0.5 MG/2 ML NEBU INHALATION SCH ×2 (08:48→20:29)
[2018-05-06] MEDS: IPRATROPIUM-ALBUTEROL 3 ML NEB INHALATION SCH ×4 (08:48→20:29)
--- NOTE | 2018-05-06 09:57 | P.PN ---
Subjective Progress Note Date: 05/06/18 History of present illness: This is an 82-year-old female who presented emergency department complaining of shortness of breath. The patient states this has been getting worse over the past few weeks. She did note worsening lower extremity edema however she states that she frequently has swelling and it usually goes away. She states this time it didn't seem to go away. She does have a known history of asthma and COPD. She takes Breo and Combivent at home. The patient has a history of atrial fibrillation and congestive heart failure as well. On chest x-ray she was found to have pulmonary vascular congestion and cardiomegaly. The patient is being seen by cardiology. She denies fevers and chills. She does not smoke. She has been hemodynamically stable. The patient apparently had a positive stress test on some outpatient but does not undergo cardiac catheterization. The patient is agreeable to proceed with that at this time. She also stopped taking Eliquis despite a history of paroxysmal atrial fibrillation. She felt it was making her breathing worse. Per the patient and her daughter the patient isn't got very short of breath even with minimal exertion at home. And this had been ongoing for several weeks. Interval History: 04/29/18- patient is being seen examined and evaluated today on rounds. She is resting up in bed on 2 L of supplemental oxygen via nasal cannula. Upon examination the patient is somewhat agitated. States that she is frustrated with her health care at this point. He states she does not like people changing her medications, it is explained to the patient any change in medication is only to help treat her current health issues and is in her best interest. She has had some tachycardia this morning rates in the 120s, currently she is on a Cardizem drip for that. She states her shortness of breath is improving slightly however still gets short of breath with any activity and exertion. She has a chronic cough. Echocardiogram was obtained EF 55-60%, there is a small generalized pericardial effusion present, no evidence of pulmonary hypertension. Daughter is at bedside updated on plan of care. 04/30/18- patient is being seen examined and evaluated today on rounds he is resting up in bed on 2 L of supplemental oxygen via nasal cannula. She did undergo a chest x-ray this morning that did read demonstrate chronic emphysematous changes and mild cardiomegaly with interval resolution of tiny bilateral pleural effusions. No new suspicious focal infiltrate was present. Patient does state her breathing is somewhat improved today. She is less short of breath. She has been put on a Bumex drip and continues on her Cardizem drip as well. She is afebrile no further complaints. 05/01/18- see note by JAMI Saenz NP 05/02/2018: Patient seen and examined. Patient states she is feeling much better overall. She states she has not been out of bed. She continues on Bumex drip. She states her wheezing and shortness of breath are resolving. She isn't currently on 2 L nasal cannula. She states that the oxygen did come off her period of time and she didn't feel more short of breath. However her oxygen saturation was not checked at that time. 05/03/18- seen examined and evaluated today on rounds. She is resting up on 2 L of supplemental oxygen via nasal cannula satting 9697%. The patient would like to take the oxygen off states she doesn't feel as if she needs it. We will trial the patient off of the oxygen and see how her saturations do. Spoke with cardiology EFFICIENCY ANALYST we will be switching the patient from the Bumex drip to oral Bumex. This was discussed with the patient and the daughter as well. Her chest x-ray was reviewed from this morning and does show possible developing right lower lobe pneumonia with mild cardiomegaly. She will be started on antibiotics this is also discussed with the patient and the daughter. She has been afebrile no further complaints. 05/04/18- patient was not seen, due to her being in cardiac procedure 05/05/2018patient did undergo a cardioversion procedure yesterday which did put her back into a normal sinus rhythm. However overnight the patient has switched back into atrial fibrillation and cardiology is aware. Upon examination the patient is resting up in bed on room air. She has not required oxygen and over 2 days. She feels her breathing is stable and at baseline. She feels her swelling in her bilateral lower extremities is also improving. All labs and reports have been reviewed. She is noted to have a potassium of 3.4 which is being replaced. She did have a chest x-ray this morning which was negative for any acute pulmonary process. Daughter at bedside updated on plan of care 05/06/2018Nery is being seen examined and evaluated today on rounds. She continues in A. fib with a rate around 115. Cardiology is seeing the patient. Dr. Espana has been consulted for possible ablation. Patient continues on room air has been working with physical therapy and up ambulating in the hallway. Afebrile no further complaints. Objective - Vital Signs Vital signs: Vital Signs Temp 98.1 F 05/06/18 08:00 Pulse 76 05/06/18 09:05 Resp 16 05/06/18 08:00 BP 136/101 05/06/18 08:00 Pulse Ox 90 L 05/06/18 08:00 Intake & Output 05/05/18 05/06/18 05/06/18 18:59 06:59 18:59 Intake Total 600 360 Output Total 100 Balance 500 360 Weight 89.5 kg 88.9 kg Intake: Intake, IV Titration 160 Amount IV Fluid Continuation 1, 160 000 ml @ 0 mls/hr IV .[employer] [facility] Rx#:[id number] Oral 600 200 Output: Urine/Stool Mix 100 Other: Voiding Method Bedside Commode Bedside Commode # Voids 1 2 # Bowel Movements 1 - Exam Gen.: Patient is alert and oriented 3, no acute distress Cardiovascular: afib with RVR, S1, S2 Lungs: Bases dimished bilaterally, faint end expiratory wheeze, improving aeration overall Abdomen: Soft nontender nondistended positive bowel sounds Extremities: 1+ edema, improving - Labs CBC & Chem 7: 05/06/18 05:40 05/06/18 05:40 Labs: Abnormal Lab Results - Last 24 Hours (Table) 05/05/18 05/05/18 05/05/18 Range/Units 11:30 16:51 20:24 MCHC (31.0-37.0) g/dL Carbon Dioxide (22-30) mmol/L BUN (7-17) mg/dL Glucose (74-99) mg/dL POC Glucose (mg/dL) 128 H 158 H 209 H (75-99) mg/dL Magnesium (1.6-2.3) mg/dL ALT (9-52) U/L Total Protein (6.3-8.2) g/dL Albumin (3.5-5.0) g/dL 05/06/18 05/06/18 Range/Units 05:40 05:40 MCHC 29.8 L (31.0-37.0) g/dL Carbon Dioxide 34 H (22-30) mmol/L BUN 50 H (7-17) mg/dL Glucose 103 H (74-99) mg/dL POC Glucose (mg/dL) (75-99) mg/dL Magnesium 1.4 L (1.6-2.3) mg/dL ALT 57 H (9-52) U/L Total Protein 5.1 L (6.3-8.2) g/dL Albumin 2.7 L (3.5-5.0) g/dL Assessment and Plan Assessment: Assessment: Acute hypoxic respiratory failure Acute exacerbation of CHF Paroxysmal atrial fibrillation Pulmonary vascular congestion COPD, not acutely exacerbated Chronic moderate to severe persistent asthma not acutely exacerbated Lower extremity edema Moderate protein calorie malnutrition Obesity Mild thrombocytopenia Developing right lower lobe pneumonia Plan Medications reviewed and will be continued as ordered Pulmonary status is stable Oral Bumex for diuresis Patient is status post cardioversion, possible ablation Patient was started on doxycycline for possible right lower lobe pneumonia, cxr improved O2 to maintain saturation greater than or equal to 90% Duo nebs and Pulmicort Singulair Monitor I's and O's Daily weights Echocardiogram reviewed Cardiology recommendations for possible heart catheterization once CHF is resolved Echocardiogram reviewed Incentive spirometry and pulmonary hygiene Increase activity as tolerated PT and OT, patient to be out of bed for meals GI and DVT prophylaxis We will continue to follow labs/reports and adjust treatment as necessary Discharge planning underway I performed an examination of the patient and discussed their management with the nurse practitioner. I have reviewed the nurse practitioner's note and agree with the documented findings and plan of care.
[2018-05-06] MEDS ORDERED: Magnesium Replacement Protocol 1 EACH MISC MISCELLANE PRN (10:44)
[2018-05-06] MEDS ORDERED: Potassium Replacement Protocol 1 EACH MISC MISCELLANE PRN (10:46)
[2018-05-06 11:36] LABS: Glucose,Whole Blood 144 mg/dL (75-99)
--- NOTE | 2018-05-06 12:22 | P.CRDCN ---
History of Present Illness History of present illness: This is Dr. Espana dictating a consult on this patient The patient was interviewed and examined by me IMPRESSION / ASSESSMENT: Symptomatic atrial fibrillation with RVR despite metoprolol 100 mg 3 times a day. Atrial fibrillation developed in the hospital Congestive heart failure, diastolic CARINA did not show any left atrial appendage thrombus and she was recently cardioverted on flecainide. She had a recurrence of atrial fibrillation after successful electrical cardioversion PLAN: Options discussed with the patient. She has severe lung disease and I would avoid amiodarone. She also has an abnormal stress test and therefore class on antiarrhythmic drugs be avoided. I would recommend a pace and ablated strategy I would recommend AV node ablation and permanent pacemaker implantation A biventricular pacemaker would be recommended to avoid 100% RV pacing that could further exacerbate her heart failure condition Check TSH HPI Shortness of breath heart failure symptoms palpitations fluid overload Atrial fibrillation with RVR ROS: No fever chills or rigors, no cough, phlegm or expectoration, no nausea, vomiting or diarrhea, no hematuria, dysuria, no musculoskeletal complaints, no strokes or seizures, no skin lesions. EXAMINATION Breath sounds are reduced bilaterally Heart sounds are irregular and rapid Extent is warm mild edema Pulse rate 170 beats minute at rest, blood pressure 136/100 mmHg, afebrile REVIEW OF LABS, ECG Will ECG shows A. fib with RVR Potassium 3.5 sodium 140 BUN 50 creatinine 1.0 Past Medical History Past Medical History: Atrial Fibrillation, Asthma, Heart Failure, COPD, Hypertension, Thyroid Disorder History of Any Multi-Drug Resistant Organisms: None Reported Past Surgical History: Hysterectomy, Tonsillectomy Additional Past Surgical History / Comment(s): bladder suspension, ectopic, thyroid biopsy, cataract, glaucoma sx Past Psychological History: No Psychological Hx Reported Smoking Status: Former smoker Past Alcohol Use History: None Reported Past Drug Use History: None Reported Medications and Allergies Home Medications Medication Instructions Recorded Confirmed Type Ascorbic Acid [Vitamin C] 500 mg PO DAILY 04/27/18 04/27/18 History Calcium Carbonate [Tums] 500 - 1,000 mg PO TID PRN 04/27/18 04/27/18 History Carboxymethylcellulose Sodium 1 - 2 drop BOTH EYES QID PRN 04/27/18 04/27/18 History [Refresh Tears] Carvedilol [Coreg] 12.5 mg PO HS 04/27/18 04/27/18 History Carvedilol [Coreg] 25 mg PO DAILY 04/27/18 04/27/18 History Cholecalciferol (Vitamin D3) 2,000 unit PO DAILY 04/27/18 04/27/18 History [Vitamin D3] Claritin 12 Hour Reditabs 1 tab PO Q12H PRN 04/27/18 04/27/18 History Diltiazem HCl [Diltiazem ER] 360 mg PO DAILY 04/27/18 04/27/18 History Fluticasone/Vilanterol [Breo 1 puff INHALATION RT-DAILY 04/27/18 04/27/18 History Ellipta 200-25 Mcg INH] Ipratropium/Albuterol Sulfate 1 puff INHALATION RT-QID PRN 04/27/18 04/27/18 History [Combivent Respimat Inhaler] Latanoprost [Xalatan 0.005%] 1 drop RIGHT EYE HS 04/27/18 04/27/18 History Montelukast [Singulair] 10 mg PO HS 04/27/18 04/27/18 History Naproxen Sodium [Aleve] 440 mg PO BID 04/27/18 04/27/18 History Ranitidine HCl [Zantac] 150 mg PO BID PRN 04/27/18 04/27/18 History Allergies Allergy/AdvReac Type Severity Reaction Status Date / Time amlodipine Allergy Unknown Verified 04/27/18 11:52 benazepril [From Lotrel] Allergy Unknown Verified 04/27/18 11:52 cephalexin [From Keflex] Allergy Anaphylaxis Verified 04/27/18 11:52 Cephalosporins Allergy Anaphylaxis Verified 04/27/18 11:52 codeine Allergy Unknown Verified 04/27/18 11:52 gabapentin Allergy Swelling Verified 04/27/18 11:52 Iodinated Contrast- Oral and Allergy Anaphylaxis Verified 04/27/18 11:52 IV Dye nebivolol [From Bystolic] Allergy Unknown Verified 04/27/18 11:52 olmesartan [From Benicar] Allergy Unknown Verified 04/27/18 11:52 Penicillins Allergy Anaphylaxis Verified 04/27/18 11:52 Sulfa (Sulfonamide Allergy Anaphylaxis Verified 04/27/18 11:52 Antibiotics) apixaban [From Eliquis] AdvReac BONE PAIN Verified 04/27/18 11:52 clonidine AdvReac BLURRED Verified 04/27/18 11:52 VISION, DIZZY, SCRATCHY THROAT furosemide [From Lasix] AdvReac Nausea & Verified 04/27/18 11:52 Vomiting & Diarrhea hydralazine AdvReac CHILLS, Verified 04/27/18 11:52 SHAKING, LIGHT HEADED, FACE FLUSHED isosorbide [From Imdur] AdvReac Rapid Verified 04/27/18 11:52 Heart Rate labetalol AdvReac Dyspnea Verified 04/27/18 11:52 lisinopril AdvReac Nausea & Verified 04/27/18 11:52 Vomiting & Diarrhea/COUGH P[employer]ER [employer] TAPE Allergy Unknown Uncoded 04/27/18 11:52 Physical Exam Vitals: Vital Signs Temp Pulse Pulse Resp BP Pulse Ox 05/06/18 09:05 76 05/06/18 08:50 76 05/06/18 08:00 98.1 F 117 H 16 136/101 90 L 05/06/18 04:00 97.2 F L 110 H 18 133/96 91 L 05/06/18 00:00 97.8 F 101 H 18 130/79 91 L 05/05/18 20:47 80 05/05/18 20:34 78 05/05/18 20:28 97.0 F L 110 H 19 140/83 92 L 05/05/18 20:00 110 H 19 05/05/18 16:52 93 05/05/18 16:46 110 H 18 05/05/18 16:43 93 05/05/18 16:00 93 19 05/05/18 15:48 98.8 F 93 19 138/91 93 L Intake and Output 05/05/18 05/06/18 05/06/18 22:59 06:59 14:59 Intake Total 200 160 Output Total 100 Balance 100 160 Intake: Intake, IV Titration 160 Amount IV Fluid Continuation 1, 160 000 ml @ 0 mls/hr IV .STK -MED ONE Rx#:[id number] Oral 200 Output: Urine/Stool Mix 100 Other: Voiding Method Bedside Commode Bedside Commode # Voids 1 2 400 # Bowel Movements 1 Weight 89.5 kg 88.9 kg Results 05/06/18 05:40 05/06/18 05:40 Cardiac Enzymes 05/06/18 Range/Units 05:40 AST 24 (14-36) U/L CBC 05/06/18 Range/Units 05:40 WBC 8.8 (3.8-10.6) k/uL RBC 4.37 (3.80-5.40) m/uL Hgb 13.0 (11.4-16.0) gm/dL Hct 43.6 (34.0-46.0) % Plt Count 167 (150-450) k/uL Comprehensive Metabolic Panel 05/05/18 05/06/18 Range/Units 15:58 05:40 Sodium 140 (137-145) mmol/L Potassium 4.0 3.5 (3.5-5.1) mmol/L Chloride 102 (98-107) mmol/L Carbon Dioxide 34 H (22-30) mmol/L BUN 50 H (7-17) mg/dL Creatinine 1.00 (0.52-1.04) mg/dL Glucose 103 H (74-99) mg/dL Calcium 8.7 (8.4-10.2) mg/dL AST 24 (14-36) U/L ALT 57 H (9-52) U/L Alkaline Phosphatase 54 (38-126) U/L Total Protein 5.1 L (6.3-8.2) g/dL Albumin 2.7 L (3.5-5.0) g/dL Current Medications Generic Name Dose Route Start Last Admin Trade Name Freq PRN Reason Stop Dose Admin Acetaminophen 500 mg 05/01/18 11:47 05/02/18 16:43 Tylenol Tab PO 500 mg Q4HR PRN Administration Fever and/ or MILD Pain Albuterol/Ipratropium 3 ml 04/27/18 16:00 05/06/18 08:48 Duoneb 0.5 Mg-3 Mg/3 Ml Soln INHALATION 3 ml RT-QID ОЛЕГ Administration Albuterol/Ipratropium 3 ml 04/27/18 14:50 Duoneb 0.5 Mg-3 Mg/3 Ml Soln INHALATION RT-Q2H PRN Shortness Of Breath Or Wheezing Apixaban 2.5 mg 05/02/18 13:45 05/06/18 08:38 Eliquis PO 2.5 mg BID ОЛЕГ Administration Artificial Tears 2 drops 04/27/18 14:48 Artificial Tear Drops BOTH EYES QID PRN Dry Eye(s) Budesonide 0.5 mg 04/28/18 20:00 05/06/18 08:48 Pulmicort INHALATION 0.5 mg RT-BID ОЛЕГ Administration Bumetanide 1 mg 05/03/18 16:00 05/06/18 08:36 Bumex PO 1 mg BID@0900,1600 ОЛЕГ Administration Calcium Carbonate/Glycine 500 mg 04/27/18 14:48 Tums PO TID PRN Heartburn Cholecalciferol 2,000 unit 04/28/18 09:00 05/06/18 08:37 Vitamin D3 PO 2,000 unit DAILY ОЛЕГ Administration Doxycycline Monohydrate 100 mg 05/03/18 10:30 05/06/18 08:36 Vibramycin PO 100 mg BID ОЛЕГ Administration Dronedarone 400 mg 05/06/18 17:30 Multaq PO AC-BID ОЛЕГ Famotidine 20 mg 04/28/18 09:00 05/06/18 08:39 Pepcid PO 20 mg DAILY ОЛЕГ Administration Gabapentin 100 mg 05/01/18 12:00 05/06/18 08:38 Neurontin PO 100 mg BID ОЛЕГ Administration Sodium Chloride 1,000 mls @ 20 mls/hr 05/04/18 08:45 05/06/18 08:44 Saline 0.9% IV 20 mls/hr .Q24H ОЛЕГ Administration Magnesium Sulfate/Dextrose 1 100 mls @ 100 mls/hr 05/06/18 11:00 gm/ IV Solution IVPB 05/06/18 13:59 Q1H ОЛЕГ Insulin Aspart 0 unit 04/27/18 17:30 05/06/18 06:27 Novolog SQ Not Given ACHS COUNT INCLUDES THE [facility] Protocol Latanoprost 1 drops 04/27/18 21:00 05/05/18 21:27 Xalatan 0.005% RIGHT EYE 1 drops HS ОЛЕГ Administration Loratadine 10 mg 04/27/18 14:48 Claritin PO Q24H PRN Allergy Symptoms Metoprolol Tartrate 100 mg 05/05/18 16:00 05/06/18 08:38 Lopressor PO 100 mg TID ОЛЕГ Administration Miscellaneous Information 1 each 05/06/18 10:44 Magnesium Per Protocol MISCELLANE DAILY PRN Per Protocol Protocol Miscellaneous Information 1 each 05/06/18 10:46 Potassium Per Protocol MISCELLANE DAILY PRN Per Protocol Protocol Montelukast Sodium 10 mg 04/27/18 21:00 05/05/18 21:28 Singulair PO 10 mg HS ОЛЕГ Administration Intake and Output 05/05/18 05/06/18 05/06/18 22:59 06:59 14:59 Intake Total 200 160 Output Total 100 Balance 100 160 Intake: Intake, IV Titration 160 Amount IV Fluid Continuation 1, 160 000 ml @ 0 mls/hr IV .K -MED ONE Rx#:[id number] Oral 200 Output: Urine/Stool Mix 100 Other: Voiding Method Bedside Commode Bedside Commode # Voids 1 2 400 # Bowel Movements 1 Weight 89.5 kg 88.9 kg 05/06/18 05:40 05/06/18 05:40
--- NOTE | 2018-05-06 12:24 | P.PN ---
Subjective Progress Note Date: 05/06/18 This is a pleasant 82-year-old female who follows regularly with Dr. Holliday in the office. She has a known history of hypertension, COPD, proximal atrial fibrillation, patient states she was initiated on Eliquis in the past by Dr. Holliday, but had difficulty in breathing and for this reason she stopped it. Patient has multiple multiple ALLERGIES. She presents to the hospital on this occasion with symptoms of progressively worsening peripheral edema which she states has been going on for the past one week or so, she also states for the past few days she's been very short of breath, to the point where she feels she is unable to breathe at all. Her shortness of breath mainly occurs with exertion, even walking a very short distance to the bathroom. At rest her symptoms seemed to subside. Patient also states that she's been getting some discomfort in her upper back area between her scapula which she has been attributing to muscle pain. According to the patient, she states she had a stress test in the office performed by Dr. Holliday he told the patient that there was a shadow and recommended she undergo cardiac catheterization, patient decided at that time because it was only a shadow not to proceed with heart catheterization. Patient was recently started on a medication called gabapentin approximately 3 weeks ago, when the symptoms of swelling started in both legs she thought initially it was from that, because symptoms continued to worsen and she had no relief with her breathing treatments she came to the ER. Chest x-ray on admission here revealed CHF exacerbation on the background of moderate to severe emphysema, small bilateral pleural effusions were also noted. EKG on arrival here shows a normal sinus rhythm. Blood pressure on arrival 190/90, heart rate in the 70s, 92% on room air. Blood pressure this morning 150/90 with a heart rate in the 90s, 94% on 2 L of oxygen. White blood cell count is normal, hemoglobin 12.2, platelet count 116. Sodium 141, potassium 3.9, BUN 23, creatinine 0.7. Troponins have been negative 3. BNP level 3390. TSH level 0.19. The patient does have an ALLERGY to Lasix, she was given a dose of hydrochlorothiazide in the emergency room as well as Aldactone. 019. 04/29/2018 Patient seen and examined this morning, continues to feel somewhat short of breath. She is currently in atrial fibrillation with a moderately rapid ventricular response, blood pressure 120/70, heart rate in the low 100s to 110 range. 96% on nasal cannula at 2 L. White blood cell count 10.7, hemoglobin 12.5, platelet count 140. Sodium 141, potassium 3.8, BUN 34, creatinine 0.9. Patient appears to diurese well through the night last night although her weight is not reflective of the cyst morning. She was somewhat hesitant to take the Bumex because of her Lasix ALLERGY, she has had no reaction and BuSpar. Dr. Holliday's recommendation is to initiate Bumex drip today. 05/03/2018 Patient seen and examined this morning, showing improvement in her lower extremity edema. Shortness of breath improving. Bumex drip discontinued today , patient was initiated on oral. Creatinine 1.2 today. Patient has been initiated on Eliquis for anticoagulation, earlier today her heart rate was up in the 1 teens range. Currently in the 90s. We will increase her metoprolol 200 twice a day. 05/05/2018 Patioent underwent CARINA and cardioversion yesterday converted to normal sinus rhythm, this morning she went back into atrial fibrillation with a moderately rapid ventricular response. Patient states that she overall did feel better when she was in a normal sinus rhythm. Dr. Guillermo seen and examined the patient today and suggested a possible consultation with Dr. Espana for ablation, patient is willing to proceed. This point we will continue her other current medications. 05/06/2018 Patient seen and examined this morning, continues to be in atrial fibrillation with fairly uncontrolled ventricular response. Patient was seen in consultation today by , his plan is to place and ablate. Patient is in agreement to proceed with this today. Blood pressure 138/80 with a heart rate in the 80s, 91% on room air. Objective - Vital Signs Vital signs: Vital Signs Temp 98.1 F 05/06/18 08:00 Pulse 76 05/06/18 09:05 Resp 16 05/06/18 08:00 BP 136/101 05/06/18 08:00 Pulse Ox 90 L 05/06/18 08:00 Intake & Output 05/05/18 05/06/18 05/06/18 18:59 06:59 18:59 Intake Total 600 360 Output Total 100 Balance 500 360 Weight 89.5 kg 88.9 kg Intake: Intake, IV Titration 160 Amount IV Fluid Continuation 1, 160 000 ml @ 0 mls/hr IV .[employer] Holding ONE Rx#:[id number] Oral 600 200 Output: Urine/Stool Mix 100 Other: Voiding Method Bedside Commode Bedside Commode # Voids 1 2 400 # Bowel Movements 1 - Exam PHYSICAL EXAMINATION: GENERAL: 82-year-old female in no acute distress at the time of my examination HEENT: Head is atraumatic, normocephalic. Pupils equal, round. Sclera anicteric. Conjunctiva are clear. Mucous membranes of the mouth are moist. Neck is supple. There is elevated jugular venous pressure. No carotid bruit is heard. HEART EXAMINATION: Heart S1 S2 1 systolic murmur is heard. CHEST EXAMINATION: Lungs reveal diminished air entry bilaterally with rales heard at the bases ABDOMEN: Soft, nontender. Bowel sounds are heard. No organomegaly noted. EXTREMITIES:[ 2+ peripheral pulses with 2+ evidence of peripheral edema NEUROLOGIC patient is awake, alert and oriented X3 - Labs CBC & Chem 7: 05/06/18 05:40 05/06/18 05:40 Labs: Abnormal Lab Results - Last 24 Hours (Table) 05/05/18 05/05/18 05/06/18 Range/Units 16:51 20:24 05:40 MCHC 29.8 L (31.0-37.0) g/dL Carbon Dioxide (22-30) mmol/L BUN (7-17) mg/dL Glucose (74-99) mg/dL POC Glucose (mg/dL) 158 H 209 H (75-99) mg/dL Magnesium (1.6-2.3) mg/dL ALT (9-52) U/L Total Protein (6.3-8.2) g/dL Albumin (3.5-5.0) g/dL 05/06/18 05/06/18 Range/Units 05:40 11:32 MCHC (31.0-37.0) g/dL Carbon Dioxide 34 H (22-30) mmol/L BUN 50 H (7-17) mg/dL Glucose 103 H (74-99) mg/dL POC Glucose (mg/dL) 144 H (75-99) mg/dL Magnesium 1.4 L (1.6-2.3) mg/dL ALT 57 H (9-52) U/L Total Protein 5.1 L (6.3-8.2) g/dL Albumin 2.7 L (3.5-5.0) g/dL Assessment and Plan Plan: Assessment and plan #1 acute hypoxic respiratory failure, likely secondary congestive heart failure exacerbation, diastolic, acute on chronic, and COPD exacerbation. . #2 COPD history #3 paroxysmal atrial fibrillation, patient had stopped taking Eliquis because of symptoms of shortness of breath. #4 hypertensive urgency in a patient with history of hypertension #5 prior history of smoking #6 symptoms of exertional shortness of breath, possible angina. Patient was told to have had a positive stress test in the office and recommended to undergo cardiac catheterization which she refused at that time. Troponins negative 3. #7 status post elective cardioversion Plan Patient has been seen in consultation today by Dr. Espana, the plan is to pace and ablate, pacemaker will be implanted today. Risks and benefits were explained to the patient in detail. DNP note has been reviewed, I agree with a documented findings and plan of care. Patient was seen and examined.
--- NOTE | 2018-05-06 14:03 | P.PN ---
Subjective Progress Note Date: 05/06/18 This is a 82-year-old female with a known past medical history of paroxysmal atrial fibrillation, COPD, congestive heart failure and hypertension. Patient reports multiple medication ALLERGIES. Patient examined in the emergency room. She presents to the hospital with complaints of lower extremity edema and shortness of breath over the last week. Patient was recently started on gabapentin by the insulation technician. She is under going rheumatology workup outpatient. Patient has been on the gabapentin for the past 3 weeks. And within the last week she's noticed increased swelling in her legs and shortness of breath. Initially she thought she was having an ALLERGIC reaction to the gabapentin. She presented to the emergency room for further evaluation and treatment. She was found to have elevated BNP 3390. Chest x-ray shows suspected CHF exacerbation on background of moderate to severe chronic emphysematous change as there is new mild cardiomegaly with small bilateral pleural effusions and likely new mild interstitial edema. She diagnosed with CHF exacerbation. Patient has ALLERGY to Lasix. Also had elevated blood pressure in the emergency room of 226/111. She was given hydrochlorothiazide and Aldactone. Also started on IV Solu-Medrol and bronchodilators for a COPD exacerbation. Pulmonary and cardiology have been consulted. Her oxygen saturation had dropped down into the 80s and she is currently on 3 L. Patient also reports urinary symptoms with urinary hesitancy. She has evidence of a UTI will be placed on Levaquin. She does penicillin and sulfa ALLERGY. Gabapentin discontinued. Patient denies any chest pain, cough, fever or chills or sweats. Denies any nausea or vomiting. Reports over the last day or 2 she' s had frequent stools but they are formed. She denies any headaches. Denies any lateralized weakness or numbness of the extremities. She does reports having some vision changes in both eyes lasting for a few minutes yesterday while looking out the window. Vision returned to normal after those few minutes. EKG normal sinus rhythm. Troponins negative. On 04/28/2018 patient is currently resting comfortably in bed on 2 L nasal cannula. 2-D echo completed showing EF between 55 and 60%. Patient denies chest pain. Does state some improvement shortness breath. Denies nausea vomiting or diarrhea. Denies any urinary burning or frequency. 04/29/2018 patient was apparently agitated this morning. She has calmed down this afternoon. Patient was placed on a Cardizem drip for elevated heart rate in the 120s this morning. She is also on Bumex for her CHF exacerbation. Echo was obtained showing an EF of 55-60%, there is a small generalized pericardial effusion present. No pulmonary hypertension. Patient is on 2 L satting at 96% 04/30/2018 patient sitting at the bedside chair. She required be placed back on Cardizem drip yesterday. Heart rate had been fluctuating between the 120s to 150s. She remains on the Bumex drip. Weight is trending down from a 97.3- 94 kg. Chest x-ray showing improving pleural effusion and no evidence of an infiltrate. Creatinine has gone up to 1.20. She is on clindamycin for UTI On 05/01/2018 patient is alert and oriented 3, complains of generalized joint pain, otherwise she denies any complaints at this time, shortness of breath has improved, she has been off naproxen due to elevated BUN and creatinine, and this has caused worsening of her joint pain, she is requesting Neurontin, and denying that she ever had any ALLERGY to that, at this time patient will be given 1 dose of oral prednisone she will be started on Tylenol 500 mg every 4 hours when necessary she will also be restarted on a low-dose Neurontin 100 mg twice daily Will monitor for any sign of ALLERGY. On 05/02/2018 patient is feeling better she is alert and oriented 3 her joint pain has improved she is requesting to have more prednisone today her shortness of breath has also improved there is no fever or chills no headache or dizziness no chest pain no cough no nausea or vomiting no abdominal pain and no urinary symptoms 05/03/2018 patient is having improvement in her lower extremity edema. Patient' s joint pain improved yesterday after being given a dose of prednisone Tylenol and Neurontin. Patient's lower extremity edema and shortness of breath or improving. Bumex was switched to oral. Creatinine has increased to 1.23. Eliquis started over the weekend per cardiology. Chest x-ray showing a developing right lower lobe pneumonia. Pulmonary's place patient on doxycycline. Patient does admit to a cough it's nonproductive. 05/04/2018 patient status post cardioversion she converted from atrial fibrillation to normal sinus rhythm. Cardiology has started her on flecainide. Cardizem drip was discontinued. Patient is on oral Bumex. Creatinine has decreased from 1.25-1.10. Slight increase in ALT from 59-66. Patient reports improvement in her shortness of breath and still having some lower extremity edema. Patient denies any chest pain or cough. Denies any nausea or vomiting. Denies any bowel movement changes or urinary symptoms. On 05/05/2018 patient underwent [facility] and cardioversion yesterday converted to normal sinus rhythm however this morning patient went back into atrial fibrillation with moderately rapid ventricular response. Cardiology Dr. Espana has been reconsulted for possible ablation. Patient is currently alert and oriented 3. Patient denies chest pain or shortness of breath. Patient denies nausea vomiting or diarrhea. Patient denies any urinary burning or frequency On 05/06/2018 patient is currently resting comfortably in bed. Patient is alert and oriented 3. Patient remains in A. fib. Per cardiology plan for permanent pacemaker implantation today. Per cardiology also complaining outpatient AV node ablation. Patient denies chest pain or shortness of breath. Patient denies nausea vomiting or diarrhea. Patient denies any urinary burning or frequency Objective - Vital Signs Vital signs: Vital Signs Temp 98.1 F 05/06/18 08:00 Pulse 103 H 05/06/18 12:45 Resp 16 05/06/18 12:45 BP 136/101 05/06/18 08:00 Pulse Ox 90 L 05/06/18 08:00 Intake & Output 05/05/18 05/06/18 05/06/18 18:59 06:59 18:59 Intake Total 600 360 Output Total 100 Balance 500 360 Weight 89.5 kg 88.9 kg Intake: Intake, IV Titration 160 Amount IV Fluid Continuation 1, 160 000 ml @ 0 mls/hr IV .STK -MED ONE Rx#:[id number] Oral 600 200 Output: Urine/Stool Mix 100 Other: Voiding Method Bedside Commode Bedside Commode # Voids 1 2 400 # Bowel Movements 1 - Exam Head normocephalic Neck supple Lungs crackles left lower lobe with faint scattered wheezing Heart regular rate and rhythm S1-S2, no rub or gallop Abdomen is soft nontender nondistended positive bowel sounds no hepatosplenomegaly Extremities no edema Neuro alert and orientated to 3 - Labs CBC & Chem 7: 05/06/18 05:40 05/06/18 05:40 Labs: Abnormal Lab Results - Last 24 Hours (Table) 05/05/18 05/05/18 05/06/18 Range/Units 16:51 20:24 05:40 MCHC 29.8 L (31.0-37.0) g/dL Carbon Dioxide (22-30) mmol/L BUN (7-17) mg/dL Glucose (74-99) mg/dL POC Glucose (mg/dL) 158 H 209 H (75-99) mg/dL Magnesium (1.6-2.3) mg/dL ALT (9-52) U/L Total Protein (6.3-8.2) g/dL Albumin (3.5-5.0) g/dL 05/06/18 05/06/18 Range/Units 05:40 11:32 MCHC (31.0-37.0) g/dL Carbon Dioxide 34 H (22-30) mmol/L BUN 50 H (7-17) mg/dL Glucose 103 H (74-99) mg/dL POC Glucose (mg/dL) 144 H (75-99) mg/dL Magnesium 1.4 L (1.6-2.3) mg/dL ALT 57 H (9-52) U/L Total Protein 5.1 L (6.3-8.2) g/dL Albumin 2.7 L (3.5-5.0) g/dL Assessment and Plan Assessment: 1. Acute hypoxic respiratory failure likely related to congestive heart failure exacerbation 2. Acute on chronic diastolic congestive heart failure exacerbation: Echo shows an EF of 55-60% and a small generalized pericardial effusion. Patient had elevated BNP on admission and CHF changes on chest x-ray. Patient has ALLERGY to Lasix. She was given Aldactone and hydrochlorothiazide in the ER. Continue oral Bumex 3. COPD: No evidence of exacerbation. Patient seen by pulmonary service. They 've discontinued the IV steroids. No evidence of pneumonia on chest x-ray 4. History of paroxysmal atrial fibrillation 5. UTI: Urine culture E. coli. Patient completed antibiotic treatment for UTI 6. Hypertensive urgency on admission: Patient given hydrochlorothiazide and Aldactone in ER. Continue monitoring BP. Resume home medications. Followed by cardiology. 7. Essential hypertension 8. Atrial fibrillation with rapid ventricular response: Patient underwent cardioversion and has converted from atrial fibrillation to normal sinus rhythm. She is off of Cardizem drip. And is currently on flecainide, metoprolol and Eliquis for anticoagulation. This a.m. the patient went back into atrial fibrillation with rapid ventricular response. Dr. Espana has been reconsulted per cardiology for possible ablation. Lopressor has been increased to 100 mg 3 times a day per cardiology. Per cardiology planning permanent pacemaker implantation today. Planning outpatient AV node ablation. 9. Generalized joint pain improved with the prednisone, Tylenol and gabapentin. 10. Possible pneumonia currently on doxycycline. Pulmonary service following. X-ray completed showing no evidence for acute pulmonary disease 11. Acute kidney injury: Improved with switching IV Bumex to oral Bumex. Continue to monitor 12. Hypokalemia: We'll give potassium supplement. Potassium 3.4. Replacement per protocol. Potassium 3.5 today. Replacement has been ordered 13. Hypomagnesemia. Magnesium level 1.4. Replacement has been ordered. recheck tomorrow GI prophylaxis Pepcid and DVT prophylaxis Eliquis I performed an examination of the patient and discussed their management with the Nurse Practitioner. I have reviewed the Nurse Practitioner's notes and agree with the documented findings and plan of care
[2018-05-06] MEDS ORDERED: CLINDAMYCIN 900 MG in DEXTROSE 5% IN WATER 50 ML IVPB ONE ×2 (14:38)
[2018-05-06] MEDS ORDERED: CLINDAMYCIN 600 MG in SODIUM CHLORIDE 0.9% IRRIGATIO 250 ML IRRIGATION ONE (14:38)
[2018-05-06] MEDS: POTASSIUM CHLORIDE ER 20 MEQ TAB.ER PO SCH ×2 (16:14→21:34)
[2018-05-06] MEDS: MAGNESIUM SULFATE-D5W PMX 1 GM in DEXTROSE/WATER 1 100ML.BAG IVPB SCH ×3 (16:15→21:32)
[2018-05-06 16:43] LABS: Glucose,Whole Blood 130 mg/dL (75-99)
[2018-05-06] MEDS ORDERED: IV FLUID CONTINUATION 950 ML IV ONE (18:30)
[2018-05-06] MEDS ORDERED: MIDAZOLAM 2 MG/2 ML VIAL ONE (18:30)
[2018-05-06] MEDS ORDERED: LIDOCAINE 1% INJ 10MG/ML (20 ML MDV) SQ ONE (19:20)
[2018-05-06] MEDS ORDERED: ACETAMINOPHEN IV (For NPO) 1,000 MG in EMPTY BAG 1 BAG IVPB ONE (20:23)
[2018-05-06] MEDS ORDERED: ACETAMINOPHEN TAB 325 MG TAB PO PRN (20:23)
[2018-05-06] MEDS ORDERED: HYDROcodone/APAP 5-325MG 1 EACH TAB PO PRN (20:23)
--- NOTE | 2018-05-06 21:07 | CE ---
CARDIAC ELECTROPHYSIOLOGY REPORT This is an 82-year-old female with atrial fibrillation with RVR, tachybrady syndrome and atrial fibrillation rates difficult to control despite 300 mg of metoprolol and treated with IV amiodarone. Patient underwent permanent pacemaker implantation with view to AV junction modification in the future. Patient as brought to the EP lab in a fasting state. Written informed consent was obtained prior to the procedure. The left shoulder area was prepped and draped as per protocol. Lidocaine 1% was used for local anesthesia. A 4 cm incision was made parallel to the deltopectoral groove, about 1.5 cm medial to it. The incision was carried down to the level of the pectoralis muscle. A subfascial pocket was made. Hemostasis was assured. The left axillary vein was accessed at 2 separate points under fluoroscopy, and via appropriately sized introducer sheaths, 2 leads were positioned in the right heart. The atrial lead was a passive [employer] team leader/research psychologist, model #1944, 46 cm in length, and serial #[id number]. Atrial fib waves were 5 mV in amplitude. The RV lead was positioned in the mid to high RV septum. [id number] protocol was followed. R-waves 12 mV. Pacing impedance 860 ohms. Pacing threshold 1 V at 0.5 milliseconds. Ten-volt test was negative. Both leads were secured to the underlying pectoralis fascia using 2 nonabsorbable sutures. Pocket was irrigated with antibiotic solution. Leads were connected to the generator ([employer] model #TP0014, serial #[id number]). Leads and the generator were then placed in the subfascial pocket and the wound was closed in 3 layers and dressed per protocol. RESULT: Successful dual-chamber pacemaker implantation for management of tachybrady syndrome. PLAN: Maximize AV kamar blocking drugs and, if the leads are stable, then after about 6 weeks or so an AV junction modification will be performed. MMODL / IJN: [id number] /
[2018-05-06 21:26] LABS: Glucose,Whole Blood 107 mg/dL (75-99)
[2018-05-06] MEDS: DRONEDARONE 400 MG TAB PO SCH (21:34)
[2018-05-06] MEDS: CLINDAMYCIN 900 MG in DEXTROSE 5% IN WATER 50 ML IVPB SCH ×2 (21:35)
[2018-05-06] MEDS: MONTELUKAST 10 MG TAB PO SCH (21:36)
[2018-05-06] MEDS: LATANOPROST 0.005% OPHTH DROPS 2.5 ML BTL RIGHT EYE SCH (21:40)
[2018-05-06] MEDS ORDERED: ceFAZolin IN SWFI 2 GM/20 ML SYRINGE IVP SCH (22:30)
[2018-05-07 00:58] LABS: Glucose,Whole Blood 160 mg/dL (75-99)
[2018-05-07] MEDS: CLINDAMYCIN 900 MG in DEXTROSE 5% IN WATER 50 ML IVPB SCH ×6 (04:33→16:07)
[2018-05-07 06:11] LABS: Basophils % (A) 0 %; Eosinophils # (A) 0.2 k/uL (0-0.7); Eosinophils % (A) 2 %; HCT 42.3 % (34.0-46.0); HGB 12.8 gm/dL (11.4-16.0); Hypochromasia Slight; Lymphocytes # (A) 1.1 k/uL (1.0-4.8); Lymphocytes % (A) 13 %; MCH 30.6 pg (25.0-35.0); MCHC 30.2 g/dL (31.0-37.0); MCV 101.4 fL (80.0-100.0); Macrocytosis Slight; Mean Platelet Volume 7.8; Monocytes # (A) 0.5 k/uL (0-1.0); Monocytes % (A) 6 %; Neutrophils # (A) 6.5 k/uL (1.3-7.7); Neutrophils % (A) 77 %; Platelet Count 156 k/uL (150-450); RBC 4.17 m/uL (3.80-5.40); RDW 15.3 % (11.5-15.5); WBC 8.5 k/uL (3.8-10.6)
[2018-05-07 06:23] LABS: Albumin 2.4 g/dL (3.5-5.0); Calcium 8.1 mg/dL (8.4-10.2); Magnesium 1.8 mg/dL (1.6-2.3); Potassium 3.7 mmol/L (3.5-5.1); Total Bilirubin 1.3 mg/dL (0.2-1.3); Total Protein 4.8 g/dL (6.3-8.2)
[2018-05-07] MEDS: DRONEDARONE 400 MG TAB PO SCH ×2 (06:48→17:32)
[2018-05-07 06:55] LABS: Glucose,Whole Blood 92 mg/dL (75-99)
[2018-05-07] MEDS: INSULIN ASPART 100 UNIT/ML 1 ML 10 ML VIAL SQ SCH ×4 (07:09→21:40)
[2018-05-07] MEDS: IPRATROPIUM-ALBUTEROL 3 ML NEB INHALATION SCH ×4 (08:04→20:00)
[2018-05-07] MEDS: BUDESONIDE 0.5 MG/2 ML NEBU INHALATION SCH ×2 (08:04→20:01)
[2018-05-07] MEDS: CHOLECALCIFEROL 1,000 UNIT TAB PO SCH (08:56)
[2018-05-07] MEDS: METOPROLOL TARTRATE 50 MG TAB PO SCH ×3 (08:56→20:42)
[2018-05-07] MEDS: DOXYCYCLINE MONOHYDRATE 100 MG CAPSULE PO SCH ×2 (08:56→20:41)
[2018-05-07] MEDS: FAMOTIDINE 20 MG TAB PO SCH (08:56)
[2018-05-07] MEDS: BUMETANIDE 1 MG TAB PO SCH ×2 (08:56→16:07)
[2018-05-07] MEDS: APIXABAN 2.5 MG TABLET PO SCH ×2 (08:57→20:41)
[2018-05-07] MEDS: SODIUM CHLORIDE 0.9% 1,000 ML IV SCH ×2 (08:57→11:37)
[2018-05-07] MEDS: GABAPENTIN 100 MG CAP PO SCH ×2 (08:57→20:41)
--- NOTE | 2018-05-07 10:10 | P.PN ---
<Albertina Pérez E - Last Filed: 05/07/18 10:07> Subjective Progress Note Date: 05/07/18 History of present illness: This is an 82-year-old female who presented emergency department complaining of shortness of breath. The patient states this has been getting worse over the past few weeks. She did note worsening lower extremity edema however she states that she frequently has swelling and it usually goes away. She states this time it didn't seem to go away. She does have a known history of asthma and COPD. She takes Breo and Combivent at home. The patient has a history of atrial fibrillation and congestive heart failure as well. On chest x-ray she was found to have pulmonary vascular congestion and cardiomegaly. The patient is being seen by cardiology. She denies fevers and chills. She does not smoke. She has been hemodynamically stable. The patient apparently had a positive stress test on some outpatient but does not undergo cardiac catheterization. The patient is agreeable to proceed with that at this time. She also stopped taking Eliquis despite a history of paroxysmal atrial fibrillation. She felt it was making her breathing worse. Per the patient and her daughter the patient isn't got very short of breath even with minimal exertion at home. And this had been ongoing for several weeks. Interval History: 04/29/18- patient is being seen examined and evaluated today on rounds. She is resting up in bed on 2 L of supplemental oxygen via nasal cannula. Upon examination the patient is somewhat agitated. States that she is frustrated with her health care at this point. He states she does not like people changing her medications, it is explained to the patient any change in medication is only to help treat her current health issues and is in her best interest. She has had some tachycardia this morning rates in the 120s, currently she is on a Cardizem drip for that. She states her shortness of breath is improving slightly however still gets short of breath with any activity and exertion. She has a chronic cough. Echocardiogram was obtained EF 55-60%, there is a small generalized pericardial effusion present, no evidence of pulmonary hypertension. Daughter is at bedside updated on plan of care. 04/30/18- patient is being seen examined and evaluated today on rounds he is resting up in bed on 2 L of supplemental oxygen via nasal cannula. She did undergo a chest x-ray this morning that did read demonstrate chronic emphysematous changes and mild cardiomegaly with interval resolution of tiny bilateral pleural effusions. No new suspicious focal infiltrate was present. Patient does state her breathing is somewhat improved today. She is less short of breath. She has been put on a Bumex drip and continues on her Cardizem drip as well. She is afebrile no further complaints. 05/01/18- see note by JAMI Saenz NP 05/02/2018: Patient seen and examined. Patient states she is feeling much better overall. She states she has not been out of bed. She continues on Bumex drip. She states her wheezing and shortness of breath are resolving. She isn't currently on 2 L nasal cannula. She states that the oxygen did come off her period of time and she didn't feel more short of breath. However her oxygen saturation was not checked at that time. 05/03/18- seen examined and evaluated today on rounds. She is resting up on 2 L of supplemental oxygen via nasal cannula satting 9697%. The patient would like to take the oxygen off states she doesn't feel as if she needs it. We will trial the patient off of the oxygen and see how her saturations do. Spoke with cardiology [employer] we will be switching the patient from the Bumex drip to oral Bumex. This was discussed with the patient and the daughter as well. Her chest x-ray was reviewed from this morning and does show possible developing right lower lobe pneumonia with mild cardiomegaly. She will be started on antibiotics this is also discussed with the patient and the daughter. She has been afebrile no further complaints. 05/04/18- patient was not seen, due to her being in cardiac procedure 05/05/2018patient did undergo a cardioversion procedure yesterday which did put her back into a normal sinus rhythm. However overnight the patient has switched back into atrial fibrillation and cardiology is aware. Upon examination the patient is resting up in bed on room air. She has not required oxygen and over 2 days. She feels her breathing is stable and at baseline. She feels her swelling in her bilateral lower extremities is also improving. All labs and reports have been reviewed. She is noted to have a potassium of 3.4 which is being replaced. She did have a chest x-ray this morning which was negative for any acute pulmonary process. Daughter at bedside updated on plan of care 05/06/2018Nery is being seen examined and evaluated today on rounds. She continues in A. fib with a rate around 115. Cardiology is seeing the patient. Dr. Espana has been consulted for possible ablation. Patient continues on room air has been working with physical therapy and up ambulating in the hallway. Afebrile no further complaints. 05/07/18- patient is being seen examined and evaluated today on rounds. She did undergo a pacemaker insertion yesterday with Dr. Espana, she will be going for an ablation in the outpatient setting. She is being prepared For discharge. She is currently on room air, reading has been stable. She is afebrile no further complaints. Daughter at bedside updated on plan of care. Objective - Vital Signs Vital signs: Vital Signs Temp 97.6 F 05/07/18 09:06 Pulse 101 H 05/07/18 09:06 Resp 26 H 05/07/18 09:06 BP 128/87 05/07/18 09:06 Pulse Ox 98 05/07/18 09:06 Intake & Output 05/06/18 05/07/18 05/07/18 18:59 06:59 18:59 Intake Total 1106 180 Output Total 500 300 Balance -500 806 180 Weight 87.8 kg Intake: IV 56 Intake, IV Titration 1050 Amount ACETAMINOPHEN IV (For NPO 1000 ) 1,000 mg In Empty Bag 1 bag @ 400 mls/hr IVPB ONCE ONE Rx#:[id number] Clindamycin 900 mg In 50 Dextrose 5% in Water 50 ml @ 112 mls/hr IVPB Q6H [facility] Rx#:[id number] Oral 180 Output: Urine 500 300 Other: Voiding Method Bedside Commode Bedside Commode # Voids 400 1 # Bowel Movements 1 - Exam Gen.: Patient is alert and oriented 3, no acute distress Cardiovascular: afib with RVR, S1, S2 Lungs: Bases dimished bilaterally, faint end expiratory wheeze, improving aeration overall Abdomen: Soft nontender nondistended positive bowel sounds Extremities: 1+ edema, improving - Labs CBC & Chem 7: 05/07/18 05:31 05/07/18 05:31 Labs: Abnormal Lab Results - Last 24 Hours (Table) 05/06/18 05/06/18 05/06/18 Range/Units 11:32 16:25 20:56 MCV (80.0-100.0) fL MCHC (31.0-37.0) g/dL Carbon Dioxide (22-30) mmol/L BUN (7-17) mg/dL Creatinine (0.52-1.04) mg/dL Glucose (74-99) mg/dL POC Glucose (mg/dL) 144 H 130 H 107 H (75-99) mg/dL Calcium (8.4-10.2) mg/dL ALT (9-52) U/L Total Protein (6.3-8.2) g/dL Albumin (3.5-5.0) g/dL 05/07/18 05/07/18 05/07/18 Range/Units 00:53 05:31 05:31 MCV 101.4 H (80.0-100.0) fL MCHC 30.2 L (31.0-37.0) g/dL Carbon Dioxide 34 H (22-30) mmol/L BUN 44 H (7-17) mg/dL Creatinine 1.10 H (0.52-1.04) mg/dL Glucose 103 H (74-99) mg/dL POC Glucose (mg/dL) 160 H (75-99) mg/dL Calcium 8.1 L (8.4-10.2) mg/dL ALT 54 H (9-52) U/L Total Protein 4.8 L (6.3-8.2) g/dL Albumin 2.4 L (3.5-5.0) g/dL Assessment and Plan Assessment: Assessment: Acute hypoxic respiratory failure Acute exacerbation of CHF Paroxysmal atrial fibrillation Pulmonary vascular congestion COPD, not acutely exacerbated Chronic moderate to severe persistent asthma not acutely exacerbated Lower extremity edema Moderate protein calorie malnutrition Obesity Mild thrombocytopenia Developing right lower lobe pneumonia Plan Patient is cleared from pulmonary standpoint for discharge Medications reviewed and will be continued as ordered Pulmonary status is stable Oral Bumex for diuresis Patient is status post cardioversion, possible ablation Patient was started on doxycycline for possible right lower lobe pneumonia, cxr improved O2 to maintain saturation greater than or equal to 90% Duo nebs and Pulmicort Singulair Monitor I's and O's Daily weights Echocardiogram reviewed Cardiology recommendations Echocardiogram reviewed Incentive spirometry and pulmonary hygiene Increase activity as tolerated PT and OT, patient to be out of bed for meals GI and DVT prophylaxis We will continue to follow labs/reports and adjust treatment as necessary Discharge planning underway I performed an examination of the patient and discussed their management with the nurse practitioner. I have reviewed the nurse practitioner's note and agree with the documented findings and plan of care. <Linette Oreilly A - Last Filed: 05/07/18 13:36> Objective - Vital Signs Vital signs: Vital Signs Temp 97.5 F L 05/07/18 12:09 Pulse 101 H 05/07/18 12:09 Resp 16 05/07/18 12:09 BP 112/75 05/07/18 12:09 Pulse Ox 94 L 05/07/18 12:09 Intake & Output 05/06/18 05/07/18 05/07/18 18:59 06:59 18:59 Intake Total 1106 400 Output Total 500 300 Balance -500 806 400 Weight 87.8 kg Intake: IV 56 Intake, IV Titration 1050 Amount ACETAMINOPHEN IV (For NPO 1000 ) 1,000 mg In Empty Bag 1 bag @ 400 mls/hr IVPB ONCE ONE Rx#:[id number] Clindamycin 900 mg In 50 Dextrose 5% in Water 50 ml @ 112 mls/hr IVPB Q6H [id number] Rx#:[id number] Oral 400 Output: Urine 500 300 Other: Voiding Method Bedside Commode Bedside Commode # Voids 400 1 # Bowel Movements 1 - Labs CBC & Chem 7: 05/07/18 05:31 05/07/18 05:31 Labs: Abnormal Lab Results - Last 24 Hours (Table) 05/06/18 05/06/18 05/07/18 Range/Units 16:25 20:56 00:53 MCV (80.0-100.0) fL MCHC (31.0-37.0) g/dL Carbon Dioxide (22-30) mmol/L BUN (7-17) mg/dL Creatinine (0.52-1.04) mg/dL Glucose (74-99) mg/dL POC Glucose (mg/dL) 130 H 107 H 160 H (75-99) mg/dL Calcium (8.4-10.2) mg/dL ALT (9-52) U/L Total Protein (6.3-8.2) g/dL Albumin (3.5-5.0) g/dL 05/07/18 05/07/18 05/07/18 Range/Units 05:31 05:31 11:41 MCV 101.4 H (80.0-100.0) fL MCHC 30.2 L (31.0-37.0) g/dL Carbon Dioxide 34 H (22-30) mmol/L BUN 44 H (7-17) mg/dL Creatinine 1.10 H (0.52-1.04) mg/dL Glucose 103 H (74-99) mg/dL POC Glucose (mg/dL) 142 H (75-99) mg/dL Calcium 8.1 L (8.4-10.2) mg/dL ALT 54 H (9-52) U/L Total Protein 4.8 L (6.3-8.2) g/dL Albumin 2.4 L (3.5-5.0) g/dL Assessment and Plan Assessment: OK to DC from pulmonary standpoint. Outpatient ablation planned. Continue Duonebs and Pulmicort. Bumex for diuresis. Follow up in pulmonary office in 2- 3 days. ~Linette Oreilly DO
[2018-05-07 11:47] LABS: Glucose,Whole Blood 142 mg/dL (75-99)
--- NOTE | 2018-05-07 13:21 | P.DS ---
Providers Date of admission: 04/27/18 13:21 Expected date of discharge: 05/07/18 Attending physician: Elham Kumar Consults: 04/27/18 13:21 Consult Physician Routine Consulting Provider: Kamilah Trotter Consult Reason/Comments: chf Do you want consulting provider notified?: Yes Consult Physician Routine Consulting Provider: Linette Oreilly Consult Reason/Comments: copd Do you want consulting provider notified?: Yes 05/05/18 10:09 Consult Physician Routine Consulting Provider: Rigoberto Espana Consult Reason/Comments: afib Do you want consulting provider notified?: Yes Primary care physician: [facility] Course: Discharge diagnosis 1. Acute hypoxic respiratory failure likely related to congestive heart failure exacerbation 2. Acute on chronic diastolic congestive heart failure exacerbation: Echo shows an EF of 55-60% and a small generalized pericardial effusion. Patient had elevated BNP on admission and CHF changes on chest x-ray. Patient has ALLERGY to Lasix. She was given Aldactone and hydrochlorothiazide in the ER. Continue oral Bumex 1 mg twice a day 3. COPD: No evidence of exacerbation. Patient seen by pulmonary service. They 've discontinued the IV steroids. No evidence of pneumonia on chest x-ray 4. History of paroxysmal atrial fibrillation 5. UTI: Urine culture E. coli. Patient completed antibiotic treatment for UTI 6. Hypertensive urgency on admission: Patient given hydrochlorothiazide and Aldactone in ER. Improved 7. Essential hypertension 8. Atrial fibrillation with rapid ventricular response: Patient underwent cardioversion and has converted from atrial fibrillation to normal sinus rhythm. She is off of Cardizem drip. And is currently on flecainide, metoprolol and Eliquis for anticoagulation. This a.m. the patient went back into atrial fibrillation with rapid ventricular response. Dr. Espana has been reconsulted per cardiology for possible ablation. Lopressor has been increased to 100 mg 3 times a day per cardiology. Cardiology is also added a calcium channel rios to help with heart rate controlled. Ablation will be completed outpatient 9. Generalized joint pain improved with the prednisone, Tylenol and gabapentin. 10. Possible pneumonia currently on doxycycline. Pulmonary service following. X-ray completed showing no evidence for acute pulmonary disease. Doxycycline discontinued 11. Acute kidney injury: Improved with switching IV Bumex to oral Bumex. Continue to monitor 12. Hypokalemia: Resolved 13. Hypomagnesemia. Improved 14. Tachybradycardia syndrome: Status post pacemaker placement Hospital course This is a 82-year-old female with a known past medical history of paroxysmal atrial fibrillation, COPD, congestive heart failure and hypertension. Patient reports multiple medication ALLERGIES. Patient examined in the emergency room. She presents to the hospital with complaints of lower extremity edema and shortness of breath over the last week. Patient was recently started on gabapentin by the blood bank attendant. She is under going rheumatology workup outpatient. Patient has been on the gabapentin for the past 3 weeks. And within the last week she's noticed increased swelling in her legs and shortness of breath. Initially she thought she was having an ALLERGIC reaction to the gabapentin. She presented to the emergency room for further evaluation and treatment. She was found to have elevated BNP 3390. Chest x-ray shows suspected CHF exacerbation on background of moderate to severe chronic emphysematous change as there is new mild cardiomegaly with small bilateral pleural effusions and likely new mild interstitial edema. She diagnosed with CHF exacerbation. Patient has ALLERGY to Lasix. Also had elevated blood pressure in the emergency room of 226/111. She was given hydrochlorothiazide and Aldactone. Also started on IV Solu-Medrol and bronchodilators for a COPD exacerbation. Pulmonary and cardiology have been consulted. Her oxygen saturation had dropped down into the 80s and she is currently on 3 L. Patient also reports urinary symptoms with urinary hesitancy. She has evidence of a UTI will be placed on Levaquin. She does penicillin and sulfa ALLERGY. Gabapentin discontinued. Patient denies any chest pain, cough, fever or chills or sweats. Denies any nausea or vomiting. Reports over the last day or 2 she' s had frequent stools but they are formed. She denies any headaches. Denies any lateralized weakness or numbness of the extremities. She does reports having some vision changes in both eyes lasting for a few minutes yesterday while looking out the window. Vision returned to normal after those few minutes. EKG normal sinus rhythm. Troponins negative. On 04/28/2018 patient is currently resting comfortably in bed on 2 L nasal cannula. 2-D echo completed showing EF between 55 and 60%. Patient denies chest pain. Does state some improvement shortness breath. Denies nausea vomiting or diarrhea. Denies any urinary burning or frequency. 04/29/2018 patient was apparently agitated this morning. She has calmed down this afternoon. Patient was placed on a Cardizem drip for elevated heart rate in the 120s this morning. She is also on Bumex for her CHF exacerbation. Echo was obtained showing an EF of 55-60%, there is a small generalized pericardial effusion present. No pulmonary hypertension. Patient is on 2 L satting at 96% 04/30/2018 patient sitting at the bedside chair. She required be placed back on Cardizem drip yesterday. Heart rate had been fluctuating between the 120s to 150s. She remains on the Bumex drip. Weight is trending down from a 97.3- 94 kg. Chest x-ray showing improving pleural effusion and no evidence of an infiltrate. Creatinine has gone up to 1.20. She is on clindamycin for UTI On 05/01/2018 patient is alert and oriented 3, complains of generalized joint pain, otherwise she denies any complaints at this time, shortness of breath has improved, she has been off naproxen due to elevated BUN and creatinine, and this has caused worsening of her joint pain, she is requesting Neurontin, and denying that she ever had any ALLERGY to that, at this time patient will be given 1 dose of oral prednisone she will be started on Tylenol 500 mg every 4 hours when necessary she will also be restarted on a low-dose Neurontin 100 mg twice daily Will monitor for any sign of ALLERGY. On 05/02/2018 patient is feeling better she is alert and oriented 3 her joint pain has improved she is requesting to have more prednisone today her shortness of breath has also improved there is no fever or chills no headache or dizziness no chest pain no cough no nausea or vomiting no abdominal pain and no urinary symptoms 05/03/2018 patient is having improvement in her lower extremity edema. Patient' s joint pain improved yesterday after being given a dose of prednisone Tylenol and Neurontin. Patient's lower extremity edema and shortness of breath or improving. Bumex was switched to oral. Creatinine has increased to 1.23. Eliquis started over the weekend per cardiology. Chest x-ray showing a developing right lower lobe pneumonia. Pulmonary's place patient on doxycycline. Patient does admit to a cough it's nonproductive. 05/04/2018 patient status post cardioversion she converted from atrial fibrillation to normal sinus rhythm. Cardiology has started her on flecainide. Cardizem drip was discontinued. Patient is on oral Bumex. Creatinine has decreased from 1.25-1.10. Slight increase in ALT from 59-66. Patient reports improvement in her shortness of breath and still having some lower extremity edema. Patient denies any chest pain or cough. Denies any nausea or vomiting. Denies any bowel movement changes or urinary symptoms. On 05/05/2018 patient underwent CARINA and cardioversion yesterday converted to normal sinus rhythm however this morning patient went back into atrial fibrillation with moderately rapid ventricular response. Cardiology Dr. Espana has been reconsulted for possible ablation. Patient is currently alert and oriented 3. Patient denies chest pain or shortness of breath. Patient denies nausea vomiting or diarrhea. Patient denies any urinary burning or frequency On 05/06/2018 patient is currently resting comfortably in bed. Patient is alert and oriented 3. Patient remains in A. fib. Per cardiology plan for permanent pacemaker implantation today. Per cardiology also complaining outpatient AV node ablation. Patient denies chest pain or shortness of breath. Patient denies nausea vomiting or diarrhea. Patient denies any urinary burning or frequency Patient is medically stable for discharge. She's been cleared by both cardiology and pulmonary service. She remains in atrial fibrillation and heart rate has been on low-100s. Cardiology has added calcium channel rios today. And a pacemaker was placed yesterday for tachybradycardia syndrome. They're recommending to follow-up outpatient for cardiac ablation. Patient be discharged to [facility] for further rehabilitation. I performed an examination of the patient and discussed their management with the physician Football Coach. I have reviewed the Physician Football Coach's notes and agree with the documented findings and plan of care Patient Condition at Discharge: Stable Plan - Discharge Summary Discharge Rx Participant: Yes New Discharge Prescriptions: New Apixaban [Eliquis] 2.5 mg PO BID tablet Bumetanide [BUMEX] 1 mg PO BID@0900,1600 tab Dronedarone [Multaq] 400 mg PO AC-BID tab Gabapentin [Neurontin] 100 mg PO BID cap HYDROcodone/APAP 5-325MG [[place] 5-325] 1 each PO Q4HR PRN #12 tab PRN Reason: Pain Metoprolol Tartrate [Lopressor] 100 mg PO TID tab Verapamil [Isoptin] 40 mg PO TID tab Continue Ranitidine HCl [Zantac] 150 mg PO BID PRN PRN Reason: Heartburn Calcium Carbonate [Tums] 500 - 1,000 mg PO TID PRN PRN Reason: Heartburn Ascorbic Acid [Vitamin C] 500 mg PO DAILY Claritin 12 Hour Reditabs 1 tab PO Q12H PRN PRN Reason: Allergy Symptoms Cholecalciferol (Vitamin D3) [Vitamin D3] 2,000 unit PO DAILY Carboxymethylcellulose Sodium [Refresh Tears] 1 - 2 drop BOTH EYES QID PRN PRN Reason: Dry Eye(S) Montelukast [Singulair] 10 mg PO HS Latanoprost [Xalatan 0.005%] 1 drop RIGHT EYE HS Ipratropium/Albuterol Sulfate [Combivent Respimat Inhaler] 1 puff INHALATION RT-QID PRN PRN Reason: Shortness Of Breath Fluticasone/Vilanterol [Breo Ellipta 200-25 Mcg INH] 1 puff INHALATION RT- DAILY Discontinued Naproxen Sodium [Aleve] 440 mg PO BID Diltiazem HCl [Diltiazem ER] 360 mg PO DAILY Carvedilol [Coreg] 12.5 mg PO HS Carvedilol [Coreg] 25 mg PO DAILY Discharge Medication List Ascorbic Acid [Vitamin C] 500 mg PO DAILY 04/27/18 [History] Calcium Carbonate [Tums] 500 - 1,000 mg PO TID PRN 04/27/18 [History] Carboxymethylcellulose Sodium [Refresh Tears] 1 - 2 drop BOTH EYES QID PRN 04/27 [History] Cholecalciferol (Vitamin D3) [Vitamin D3] 2,000 unit PO DAILY 04/27/18 [History] Claritin 12 Hour Reditabs 1 tab PO Q12H PRN 04/27/18 [History] Fluticasone/Vilanterol [Breo Ellipta 200-25 Mcg INH] 1 puff INHALATION RT-DAILY 04/27/18 [History] Ipratropium/Albuterol Sulfate [Combivent Respimat Inhaler] 1 puff INHALATION RT- QID PRN 04/27/18 [History] Latanoprost [Xalatan 0.005%] 1 drop RIGHT EYE HS 04/27/18 [History] Montelukast [Singulair] 10 mg PO HS 04/27/18 [History] Ranitidine HCl [Zantac] 150 mg PO BID PRN 04/27/18 [History] Apixaban [Eliquis] 2.5 mg PO BID tablet 05/07/18 [Rx] Bumetanide [BUMEX] 1 mg PO BID@0900,1600 tab 05/07/18 [Rx] Dronedarone [Multaq] 400 mg PO AC-BID tab 05/07/18 [Rx] Gabapentin [Neurontin] 100 mg PO BID cap 05/07/18 [Rx] HYDROcodone/APAP 5-325MG [[place] 5-325] 1 each PO Q4HR PRN #12 tab 05/07/18 [Rx] Metoprolol Tartrate [Lopressor] 100 mg PO TID tab 05/07/18 [Rx] Verapamil [Isoptin] 40 mg PO TID tab 05/07/18 [Rx] Follow up Appointment(s)/Referral(s): Gaston Trevizo MD [STAFF PHYSICIAN] - 1 Week (Device clinic follow-up in [address] Holliday within) Linette Oreilly DO [Doctor of Osteopathic Medicine] - 1 Week [facility], [NON-STAFF] - 1 Week Elham Kumar MD [Primary Care Provider] - 05/12/18 9:30 am (Thursday) Activity/Diet/Wound Care/Special Instructions: PATIENT EDUCATION MATERIAL Instructions following a heart rhythm device implant. 1. Keep dressing DRY for 5 DAYS. You may cover the area with Saran or Cling Wrap, prior to a shower. 2. The dressing will be removed in the Device Clinic at [facility]. Absorbable sutures were used to close the wound. 3. Avoid raising the left arm above the shoulder level. 4 week restriction 4. Avoid arm movements, like backscratching, rubbing the head, or pulling on a cord. 4 weeks restriction 5. Gentle range of motion movements of the shoulder, closest to the incision should be performed to avoid a frozen shoulder. (Pendulum exercises of the shoulder) 6. The opposite arm may be used freely. 7. Avoid driving for 7 days. 8. Avoid activities such as golfing, swimming, weed whacking, lifting more than 10 pounds weight, bowling, gymnastics and weight training/lifting. (6 weeks restriction) 9. Activities such as wood chopping with an axe, pull-ups in the gymnasium, power lifting, arc-welding, being close to home induction cooktops will always be a problem. 10. Arm sling is only a reminder not to raise the arm above the head. You do not need to keep the arm completely immobilized. Your free to move the arm and use it and for normal activities. In case of any problems, please call [facility], Mary Acosta, @ [phone], Attention: Device Clinic Device clinic follow-up in 5 days Follow-up with primary wood carver hand in 2-3 months Diet: cardiac ok to Discharge to [facility]. Dr. Kumar to follow at [facility] Discharge Disposition: TRANSFER TO SNF/ECF
[2018-05-07] MEDS: VERAPAMIL 40 MG TAB PO SCH ×3 (14:34→20:42)
--- NOTE | 2018-05-07 14:36 | P.PN ---
Subjective Progress Note Date: 05/07/18 This is a pleasant 82-year-old female who follows regularly with Dr. Holliday in the office. She has a known history of hypertension, COPD, proximal atrial fibrillation, patient states she was initiated on Eliquis in the past by Dr. Holliday, but had difficulty in breathing and for this reason she stopped it. Patient has multiple multiple ALLERGIES. She presents to the hospital on this occasion with symptoms of progressively worsening peripheral edema which she states has been going on for the past one week or so, she also states for the past few days she's been very short of breath, to the point where she feels she is unable to breathe at all. Her shortness of breath mainly occurs with exertion, even walking a very short distance to the bathroom. At rest her symptoms seemed to subside. Patient also states that she's been getting some discomfort in her upper back area between her scapula which she has been attributing to muscle pain. According to the patient, she states she had a stress test in the office performed by Dr. Holliday he told the patient that there was a shadow and recommended she undergo cardiac catheterization, patient decided at that time because it was only a shadow not to proceed with heart catheterization. Patient was recently started on a medication called gabapentin approximately 3 weeks ago, when the symptoms of swelling started in both legs she thought initially it was from that, because symptoms continued to worsen and she had no relief with her breathing treatments she came to the ER. Chest x-ray on admission here revealed CHF exacerbation on the background of moderate to severe emphysema, small bilateral pleural effusions were also noted. EKG on arrival here shows a normal sinus rhythm. Blood pressure on arrival 190/90, heart rate in the 70s, 92% on room air. Blood pressure this morning 150/90 with a heart rate in the 90s, 94% on 2 L of oxygen. White blood cell count is normal, hemoglobin 12.2, platelet count 116. Sodium 141, potassium 3.9, BUN 23, creatinine 0.7. Troponins have been negative 3. BNP level 3390. TSH level 0.19. The patient does have an ALLERGY to Lasix, she was given a dose of hydrochlorothiazide in the emergency room as well as Aldactone. 019. 04/29/2018 Patient seen and examined this morning, continues to feel somewhat short of breath. She is currently in atrial fibrillation with a moderately rapid ventricular response, blood pressure 120/70, heart rate in the low 100s to 110 range. 96% on nasal cannula at 2 L. White blood cell count 10.7, hemoglobin 12.5, platelet count 140. Sodium 141, potassium 3.8, BUN 34, creatinine 0.9. Patient appears to diurese well through the night last night although her weight is not reflective of the cyst morning. She was somewhat hesitant to take the Bumex because of her Lasix ALLERGY, she has had no reaction and BuSpar. Dr. Holliday's recommendation is to initiate Bumex drip today. 05/03/2018 Patient seen and examined this morning, showing improvement in her lower extremity edema. Shortness of breath improving. Bumex drip discontinued today , patient was initiated on oral. Creatinine 1.2 today. Patient has been initiated on Eliquis for anticoagulation, earlier today her heart rate was up in the 1 teens range. Currently in the 90s. We will increase her metoprolol 200 twice a day. 05/05/2018 Patioent underwent CARINA and cardioversion yesterday converted to normal sinus rhythm, this morning she went back into atrial fibrillation with a moderately rapid ventricular response. Patient states that she overall did feel better when she was in a normal sinus rhythm. Dr. Guillermo seen and examined the patient today and suggested a possible consultation with Dr. Espana for ablation, patient is willing to proceed. This point we will continue her other current medications. 05/06/2018 Patient seen and examined this morning, continues to be in atrial fibrillation with fairly uncontrolled ventricular response. Patient was seen in consultation today by , his plan is to place and ablate. Patient is in agreement to proceed with this today. Blood pressure 138/80 with a heart rate in the 80s, 91% on room air. 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 Plan was to maximize AV kamar blocking drugs, with the leads remained stable, but after about 6 weeks or so and AV junction modification will be performed by Dr. Espana. was seen and examined this morning, heart rate in low to mid 100s, blood pressure 112/70, we did add some verapamil to her medication regime. Patient is also on metoprolol 100 3 times a day. Arrangements are being made for her to go to rehab today. She will follow-up in the office with Dr. Holliday and Dr. Espana. Objective - Vital Signs Vital signs: Vital Signs Temp 97.5 F L 05/07/18 12:09 Pulse 101 H 05/07/18 12:09 Resp 16 05/07/18 12:09 BP 112/75 05/07/18 12:09 Pulse Ox 94 L 05/07/18 12:09 Intake & Output 05/06/18 05/07/18 05/07/18 18:59 06:59 18:59 Intake Total 1106 400 Output Total 500 300 Balance -500 806 400 Weight 87.8 kg Intake: IV 56 Intake, IV Titration 1050 Amount ACETAMINOPHEN IV (For NPO 1000 ) 1,000 mg In Empty Bag 1 bag @ 400 mls/hr IVPB ONCE ONE Rx#:[id number] Clindamycin 900 mg In 50 Dextrose 5% in Water 50 ml @ 112 mls/hr IVPB Q6H [facility] Rx#:[id number] Oral 400 Output: Urine 500 300 Other: Voiding Method Bedside Commode Bedside Commode # Voids 400 1 # Bowel Movements 1 - Exam PHYSICAL EXAMINATION: GENERAL: 82-year-old female in no acute distress at the time of my examination HEENT: Head is atraumatic, normocephalic. Pupils equal, round. Sclera anicteric. Conjunctiva are clear. Mucous membranes of the mouth are moist. Neck is supple. There is elevated jugular venous pressure. No carotid bruit is heard. HEART EXAMINATION: Heart S1 S2 irregular irregular systolic murmur is heard. CHEST EXAMINATION: Lungs reveal diminished air entry bilaterally with rales heard at the bases. Site of pacemaker implantation, dressing is dry and intact ABDOMEN: Soft, nontender. Bowel sounds are heard. No organomegaly noted. EXTREMITIES:[ 2+ peripheral pulses with 2+ evidence of peripheral edema NEUROLOGIC patient is awake, alert and oriented X3 - Labs CBC & Chem 7: 05/07/18 05:31 05/07/18 05:31 Labs: Abnormal Lab Results - Last 24 Hours (Table) 05/06/18 05/06/18 05/07/18 Range/Units 16:25 20:56 00:53 MCV (80.0-100.0) fL MCHC (31.0-37.0) g/dL Carbon Dioxide (22-30) mmol/L BUN (7-17) mg/dL Creatinine (0.52-1.04) mg/dL Glucose (74-99) mg/dL POC Glucose (mg/dL) 130 H 107 H 160 H (75-99) mg/dL Calcium (8.4-10.2) mg/dL ALT (9-52) U/L Total Protein (6.3-8.2) g/dL Albumin (3.5-5.0) g/dL 05/07/18 05/07/18 05/07/18 Range/Units 05:31 05:31 11:41 MCV 101.4 H (80.0-100.0) fL MCHC 30.2 L (31.0-37.0) g/dL Carbon Dioxide 34 H (22-30) mmol/L BUN 44 H (7-17) mg/dL Creatinine 1.10 H (0.52-1.04) mg/dL Glucose 103 H (74-99) mg/dL POC Glucose (mg/dL) 142 H (75-99) mg/dL Calcium 8.1 L (8.4-10.2) mg/dL ALT 54 H (9-52) U/L Total Protein 4.8 L (6.3-8.2) g/dL Albumin 2.4 L (3.5-5.0) g/dL Assessment and Plan Plan: Assessment and plan #1 acute hypoxic respiratory failure, likely secondary congestive heart failure exacerbation, diastolic, acute on chronic, and COPD exacerbation. . #2 COPD history #3 paroxysmal atrial fibrillation, patient had stopped taking Eliquis because of symptoms of shortness of breath. #4 hypertensive urgency in a patient with history of hypertension #5 prior history of smoking #6 symptoms of exertional shortness of breath, possible angina. Patient was told to have had a positive stress test in the office and recommended to undergo cardiac catheterization which she refused at that time. Troponins negative 3. #7 status post elective cardioversion Plan Patient is being transferred to rehab today. Follow-up appointment in the office with Dr. Holliday in the device clinic. She will return in the proximal a 6 weeks for ablation as per schedule Dr. Espana. DNP note has been reviewed, I agree with a documented findings and plan of care. Patient was seen and examined.
--- NOTE | 2018-05-07 16:59 | XR ---
EXAMINATION TYPE: XR chest 2V DATE OF EXAM: 05/07/2018 COMPARISON: 05/05/2018 HISTORY: Pacemaker exam. Insertion. TECHNIQUE: Frontal and lateral views of the chest are obtained. FINDINGS: There is a left axillary pacemaker with the lead tips in the right ventricle. There is no pneumothorax. There is a mild infiltrate in the left upper lobe. There is no heart failure. Costophre chet angles are clear.. IMPRESSION: New pacemaker. There is chronic left upper lobe infiltrate without much change compared to 05/05/2018. This appears new compared to old exam of 04/30/2018 and is consistent with pneumonia.
[2018-05-07 17:19] LABS: Glucose,Whole Blood 106 mg/dL (75-99)
[2018-05-07] MEDS: LATANOPROST 0.005% OPHTH DROPS 2.5 ML BTL RIGHT EYE SCH (20:41)
[2018-05-07] MEDS: MONTELUKAST 10 MG TAB PO SCH (20:42)
[2018-05-07 20:53] LABS: Glucose,Whole Blood 147 mg/dL (75-99)
[2018-05-08] VITALS: RESP 18
[2018-05-08] MEDS: SODIUM CHLORIDE 0.9% 1,000 ML IV SCH ×3 (06:04→11:21)
[2018-05-08 06:14] LABS: Glucose,Whole Blood 91 mg/dL (75-99)
[2018-05-08] MEDS: INSULIN ASPART 100 UNIT/ML 1 ML 10 ML VIAL SQ SCH (06:26)
[2018-05-08] MEDS: DRONEDARONE 400 MG TAB PO SCH (06:35)
[2018-05-08] MEDS: IPRATROPIUM-ALBUTEROL 3 ML NEB INHALATION SCH ×2 (07:58→11:40)
[2018-05-08] MEDS: BUDESONIDE 0.5 MG/2 ML NEBU INHALATION SCH (07:58)
[2018-05-08] MEDS: FAMOTIDINE 20 MG TAB PO SCH (08:26)
[2018-05-08] MEDS: APIXABAN 2.5 MG TABLET PO SCH (08:26)
[2018-05-08] MEDS: VERAPAMIL 40 MG TAB PO SCH (08:26)
[2018-05-08] MEDS: BUMETANIDE 1 MG TAB PO SCH (08:26)
[2018-05-08] MEDS: GABAPENTIN 100 MG CAP PO SCH (08:26)
[2018-05-08] MEDS: METOPROLOL TARTRATE 50 MG TAB PO SCH (08:26)
[2018-05-08] MEDS: CHOLECALCIFEROL 1,000 UNIT TAB PO SCH (08:26)
[2018-05-08] MEDS: DOXYCYCLINE MONOHYDRATE 100 MG CAPSULE PO SCH (08:26)
[2018-05-08 08:36] VITALS: PULSE 117
[2018-05-08 11:08] LABS: Glucose,Whole Blood 132 mg/dL (75-99)
[2018-05-08 11:14] VITALS: BP 129/81; TEMP 97.6
--- NOTE | 2018-05-08 13:41 | P.PN ---
Subjective Progress Note Date: 05/08/18 This is a pleasant 82-year-old female who follows regularly with Dr. Holliday in the office. She has a known history of hypertension, COPD, proximal atrial fibrillation, patient states she was initiated on Eliquis in the past by Dr. Holliday, but had difficulty in breathing and for this reason she stopped it. Patient has multiple multiple ALLERGIES. She presents to the hospital on this occasion with symptoms of progressively worsening peripheral edema which she states has been going on for the past one week or so, she also states for the past few days she's been very short of breath, to the point where she feels she is unable to breathe at all. Her shortness of breath mainly occurs with exertion, even walking a very short distance to the bathroom. At rest her symptoms seemed to subside. Patient also states that she's been getting some discomfort in her upper back area between her scapula which she has been attributing to muscle pain. According to the patient, she states she had a stress test in the office performed by Dr. Holliday he told the patient that there was a shadow and recommended she undergo cardiac catheterization, patient decided at that time because it was only a shadow not to proceed with heart catheterization. Patient was recently started on a medication called gabapentin approximately 3 weeks ago, when the symptoms of swelling started in both legs she thought initially it was from that, because symptoms continued to worsen and she had no relief with her breathing treatments she came to the ER. Chest x-ray on admission here revealed CHF exacerbation on the background of moderate to severe emphysema, small bilateral pleural effusions were also noted. EKG on arrival here shows a normal sinus rhythm. Blood pressure on arrival 190/90, heart rate in the 70s, 92% on room air. Blood pressure this morning 150/90 with a heart rate in the 90s, 94% on 2 L of oxygen. White blood cell count is normal, hemoglobin 12.2, platelet count 116. Sodium 141, potassium 3.9, BUN 23, creatinine 0.7. Troponins have been negative 3. BNP level 3390. TSH level 0.19. The patient does have an ALLERGY to Lasix, she was given a dose of hydrochlorothiazide in the emergency room as well as Aldactone. 019. 04/29/2018 Patient seen and examined this morning, continues to feel somewhat short of breath. She is currently in atrial fibrillation with a moderately rapid ventricular response, blood pressure 120/70, heart rate in the low 100s to 110 range. 96% on nasal cannula at 2 L. White blood cell count 10.7, hemoglobin 12.5, platelet count 140. Sodium 141, potassium 3.8, BUN 34, creatinine 0.9. Patient appears to diurese well through the night last night although her weight is not reflective of the cyst morning. She was somewhat hesitant to take the Bumex because of her Lasix ALLERGY, she has had no reaction and BuSpar. Dr. Holliday's recommendation is to initiate Bumex drip today. 05/03/2018 Patient seen and examined this morning, showing improvement in her lower extremity edema. Shortness of breath improving. Bumex drip discontinued today , patient was initiated on oral. Creatinine 1.2 today. Patient has been initiated on Eliquis for anticoagulation, earlier today her heart rate was up in the 1 teens range. Currently in the 90s. We will increase her metoprolol 200 twice a day. 05/05/2018 Patioent underwent CARINA and cardioversion yesterday converted to normal sinus rhythm, this morning she went back into atrial fibrillation with a moderately rapid ventricular response. Patient states that she overall did feel better when she was in a normal sinus rhythm. Dr. Guillermo seen and examined the patient today and suggested a possible consultation with Dr. Espana for ablation, patient is willing to proceed. This point we will continue her other current medications. 05/06/2018 Patient seen and examined this morning, continues to be in atrial fibrillation with fairly uncontrolled ventricular response. Patient was seen in consultation today by , his plan is to place and ablate. Patient is in agreement to proceed with this today. Blood pressure 138/80 with a heart rate in the 80s, 91% on room air. 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 Plan was to maximize AV kamar blocking drugs, with the leads remained stable, but after about 6 weeks or so and AV junction modification will be performed by Dr. Espana. was seen and examined this morning, heart rate in low to mid 100s, blood pressure 112/70, we did add some verapamil to her medication regime. Patient is also on metoprolol 100 3 times a day. Arrangements are being made for her to go to rehab today. She will follow-up in the office with Dr. Holliday and Dr. Espana. 05/08/2018 Patient seen and examined this morning, overall doing well. No complaints. Being transferred to [facility] today. Objective - Vital Signs Vital signs: Vital Signs Temp 97.6 F 05/08/18 11:11 Pulse 117 H 05/08/18 11:11 Resp 18 05/08/18 11:11 BP 129/81 05/08/18 11:11 Pulse Ox 94 L 05/08/18 11:11 Intake & Output 05/07/18 05/08/18 05/08/18 18:59 06:59 18:59 Intake Total 640 240 Output Total 600 Balance 640 -360 Weight 91.1 kg Intake: Oral 640 240 Output: Urine 600 Other: Voiding Method Bedside Commode Bedside Commode Bedside Commode # Voids 3 - Exam PHYSICAL EXAMINATION: GENERAL: 82-year-old female in no acute distress at the time of my examination HEENT: Head is atraumatic, normocephalic. Pupils equal, round. Sclera anicteric. Conjunctiva are clear. Mucous membranes of the mouth are moist. Neck is supple. There is elevated jugular venous pressure. No carotid bruit is heard. HEART EXAMINATION: Heart S1 S2 irregular irregular systolic murmur is heard. CHEST EXAMINATION: Lungs reveal diminished air entry bilaterally with rales heard at the bases. Site of pacemaker implantation, dressing is dry and intact ABDOMEN: Soft, nontender. Bowel sounds are heard. No organomegaly noted. EXTREMITIES:[ 2+ peripheral pulses with 2+ evidence of peripheral edema NEUROLOGIC patient is awake, alert and oriented X3 - Labs CBC & Chem 7: 05/07/18 05:31 05/07/18 05:31 Labs: Abnormal Lab Results - Last 24 Hours (Table) 05/07/18 05/07/18 05/08/18 Range/Units 17:14 20:51 11:05 POC Glucose (mg/dL) 106 H 147 H 132 H (75-99) mg/dL Assessment and Plan Plan: Assessment and plan #1 acute hypoxic respiratory failure, likely secondary congestive heart failure exacerbation, diastolic, acute on chronic, and COPD exacerbation. . #2 COPD history #3 paroxysmal atrial fibrillation, patient had stopped taking Eliquis because of symptoms of shortness of breath. #4 hypertensive urgency in a patient with history of hypertension #5 prior history of smoking #6 symptoms of exertional shortness of breath, possible angina. Patient was told to have had a positive stress test in the office and recommended to undergo cardiac catheterization which she refused at that time. Troponins negative 3. #7 status post elective cardioversion Plan Patient is being transferred to rehab today. Follow-up appointment in the office with Dr. Holliday in the device clinic. She will return in the proximal a 6 weeks for ablation as per schedule Dr. Espana. DNP note has been reviewed, I agree with a documented findings and plan of care. Patient was seen and examined.
--- NOTE | 2018-05-08 14:33 | PN ---
PROGRESS NOTE She was on 05/08/2018. She has been hemodynamically stable. She is less short of breath. [facility]. PHYSICAL EXAMINATION: On physical examination, her vitals are stable. She is afebrile. Her chest is clear. Cardiovascular system reveals an S1, S2. Abdomen is soft. There is trace pedal edema. IMPRESSION AT THIS TIME: 1. Congestive heart failure, status post biventricular pacemaker placement. 2. Atrial fibrillation with rapid ventricular response. Increase her activity level. Agree with discharge planning. Will require follow up with Dr. Oreilly as an outpatient. She was counseled regarding her condition. MMODL / IJN: [id number] /
== END 2018-05-08 12:15 | DRG 242 ==
LOC: EC 11:03 → 6SEL 13:21
PROVIDERS: ADMIT Internal Medicine; ATTEND Internal Medicine
PROC: B24BZZ4 Ultrasonography of Heart with Aorta, Transesophageal (ICD-10-PCS; 2018-05-04)
PROC: 5A2204Z Restoration of Cardiac Rhythm, Single (ICD-10-PCS; principal; 2018-05-04 09:00)
PROC: 0JH606Z Insertion of Pacemaker, Dual Chamber into Chest Subcutaneous Tissue and Fascia, Open Approach (ICD-10-PCS; 2018-05-06)
PROC: 02H63JZ Insertion of Pacemaker Lead into Right Atrium, Percutaneous Approach (ICD-10-PCS; 2018-05-06)
PROC: 02HK3JZ Insertion of Pacemaker Lead into Right Ventricle, Percutaneous Approach (ICD-10-PCS; 2018-05-06)
DX: I11.0 Hypertensive heart disease with heart failure (principal); J96.21 Acute and chronic respiratory failure with hypoxia; N17.9 Acute kidney failure, unspecified; N39.0 Urinary tract infection, site not specified; E44.0 Moderate protein-calorie malnutrition; I31.3 Pericardial effusion (noninflammatory); I50.33 Acute on chronic diastolic (congestive) heart failure; I95.9 Hypotension, unspecified; I49.5 Sick sinus syndrome; D69.6 Thrombocytopenia, unspecified; E83.42 Hypomagnesemia; I48.0 Paroxysmal atrial fibrillation; M06.9 Rheumatoid arthritis, unspecified; J43.9 Emphysema, unspecified; I16.0 Hypertensive urgency; E87.6 Hypokalemia; E07.9 Disorder of thyroid, unspecified; M19.91 Primary osteoarthritis, unspecified site; J45.50 Severe persistent asthma, uncomplicated; E66.9 Obesity, unspecified; Z68.31 Body mass index [BMI] 31.0-31.9, adult; H40.9 Unspecified glaucoma; Z79.1 Long term (current) use of non-steroidal anti-inflammatories (NSAID); Z79.51 Long term (current) use of inhaled steroids; Z79.899 Other long term (current) drug therapy; Z87.891 Personal history of nicotine dependence; Z90.710 Acquired absence of both cervix and uterus; Z98.49 Cataract extraction status, unspecified eye; Z88.1 Allergy status to other antibiotic agents; Z91.041 Radiographic dye allergy status; Z88.5 Allergy status to narcotic agent; Z88.0 Allergy status to penicillin; Z88.2 Allergy status to sulfonamides; Z88.8 Allergy status to other drugs, medicaments and biological substances; Z91.048 Other nonmedicinal substance allergy status
CPT/HCPCS: 33208; 36415; 36569; 71045; 71046; 76937; 80053; 81001; 82550; 82553; 83036; 83735; 83880; 84132; 84443; 84484; 85025; 85610; 85730; 87077; 87086; 87186; 92960; 93005; 93306; 93312; 93320; 93325; 94640; 94644; 94760; 96374; 99291

== ENCOUNTER 2018-05-25 17:11 | Inpatient (IN) | payer MEDICARE ==
--- NOTE | 2018-05-25 18:24 | ED ---
General Adult HPI - General Chief complaint: Recheck/Abnormal Lab/Rx Stated complaint: urine retention, edema low extimity, poss CHF Time Seen by Provider: 05/25/18 17:29 Source: patient Mode of arrival: ambulatory Limitations: no limitations - History of Present Illness Initial comments: 82-year-old female patient presents to the emergency department today with complaints of urinary retention bilateral lower extremity edema. The patient states that she has been having increasing swelling to her lower extremities for the last few weeks. Patient states that since Thursday things have worsened significantly. Patient has gained 16 pounds over the last 2 days. Patient has developed erythema and wounds to the dorsal aspect of the foot. Patient states that the swelling in her legs gotten so bad that she is unable to ambulate. Patient states she is also been having increasing dyspnea. States whenever she walks to the bathroom or walks for any short distance she becomes winded. Patient does have a history of congestive heart failure and states that her symptoms are similar to when she has had exacerbations in the past. Patient states that for the last 2 weeks she isn't having difficulty urinating. Patient states that she well void only small amounts. Patient states that she is currently residing at [facility] and they did start performing bladder scans and intermittent catheterization which revealed she was retaining a lot of fluid in her bladder. Patient denies any fever or chills. She denies any cough or congestion. Denies any dizziness or weakness. Patient denies any recent rash, chest pain, abdominal pain, nausea, vomiting, diarrhea, constipation, back pain, numbness, tingling, dizziness, weakness, headache, visual changes, or any other complaints. - Related Data Home Medications Medication Instructions Recorded Confirmed Ascorbic Acid [Vitamin C] 500 mg PO DAILY 04/27/18 05/25/18 Calcium Carbonate [Tums] 500 - 1,000 mg PO TID PRN 04/27/18 05/25/18 Carboxymethylcellulose Sodium 1 - 2 drop BOTH EYES QID PRN 04/27/18 05/25/18 [Refresh Tears] Cholecalciferol (Vitamin D3) 2,000 unit PO DAILY 04/27/18 05/25/18 [Vitamin D3] Claritin 12 Hour Reditabs 1 tab PO Q12H PRN 04/27/18 05/25/18 Fluticasone/Vilanterol [Breo 1 puff INHALATION RT-DAILY 04/27/18 05/25/18 Ellipta 200-25 Mcg INH] Ipratropium/Albuterol Sulfate 1 puff INHALATION RT-QID PRN 04/27/18 05/25/18 [Combivent Respimat Inhaler] Latanoprost [Xalatan 0.005%] 1 drop RIGHT EYE HS 04/27/18 05/25/18 Montelukast [Singulair] 10 mg PO HS 04/27/18 05/25/18 Ranitidine HCl [Zantac] 150 mg PO BID PRN 04/27/18 05/25/18 HYDROcodone/APAP 5-325MG [Canones 1 tab PO Q4HR PRN 05/25/18 05/25/18 5-325] Previous Rx's Medication Instructions Recorded Apixaban [Eliquis] 2.5 mg PO BID tablet 05/07/18 Bumetanide [BUMEX] 1 mg PO BID@0900,1600 tab 05/07/18 Dronedarone [Multaq] 400 mg PO AC-BID tab 05/07/18 Gabapentin [Neurontin] 100 mg PO BID cap 05/07/18 Metoprolol Tartrate [Lopressor] 100 mg PO TID tab 05/07/18 Verapamil [Isoptin] 40 mg PO TID tab 05/07/18 Allergies Allergy/AdvReac Type Severity Reaction Status Date / Time amlodipine Allergy Unknown Verified 05/25/18 17:28 benazepril [From Lotrel] Allergy Unknown Verified 05/25/18 17:28 cephalexin [From Keflex] Allergy Anaphylaxis Verified 05/25/18 17:28 Cephalosporins Allergy Anaphylaxis Verified 05/25/18 17:28 codeine Allergy Unknown Verified 05/25/18 17:28 gabapentin Allergy Swelling Verified 05/25/18 17:28 Iodinated Contrast- Oral and Allergy Anaphylaxis Verified 05/25/18 17:28 IV Dye nebivolol [From Bystolic] Allergy Unknown Verified 05/25/18 17:28 olmesartan [From Benicar] Allergy Unknown Verified 05/25/18 17:28 Penicillins Allergy Anaphylaxis Verified 05/25/18 17:28 Sulfa (Sulfonamide Allergy Anaphylaxis Verified 05/25/18 17:28 Antibiotics) apixaban [From Eliquis] AdvReac BONE PAIN Verified 05/25/18 17:28 clonidine AdvReac BLURRED Verified 05/25/18 17:28 VISION, DIZZY, SCRATCHY THROAT furosemide [From Lasix] AdvReac Nausea & Verified 05/25/18 17:28 Vomiting & Diarrhea hydralazine AdvReac CHILLS, Verified 05/25/18 17:28 SHAKING, LIGHT HEADED, FACE FLUSHED isosorbide [From Imdur] AdvReac Rapid Verified 05/25/18 17:28 Heart Rate labetalol AdvReac Dyspnea Verified 05/25/18 17:28 lisinopril AdvReac Nausea & Verified 05/25/18 17:28 Vomiting & Diarrhea/COUGH P[employer]ER [employer] TAPE Allergy Unknown Uncoded 05/25/18 17:20 Review of Systems ROS Statement: Those systems with pertinent positive or pertinent negative responses have been documented in the HPI. ROS Other: All systems not noted in ROS Statement are negative. Past Medical History Past Medical History: Atrial Fibrillation, Asthma, Heart Failure, COPD, Hypertension, Thyroid Disorder History of Any Multi-Drug Resistant Organisms: None Reported Past Surgical History: Hysterectomy, Tonsillectomy Additional Past Surgical History / Comment(s): bladder suspension, ectopic, thyroid biopsy, cataract, glaucoma sx Past Psychological History: No Psychological Hx Reported Smoking Status: Former smoker Past Alcohol Use History: None Reported Past Drug Use History: None Reported General Exam Limitations: no limitations General appearance: alert, in no apparent distress, other (This is a well- developed, obese elderly female patient in no acute distress. Vital signs upon presentation are pulse 72, respiration 16, blood pressure 155/76, pulse ox 95% on room air.) Eye exam: Present: normal appearance, PERRL, EOMI. Absent: scleral icterus, conjunctival injection, periorbital swelling ENT exam: Present: normal exam, normal oropharynx, mucous membranes moist Respiratory exam: Present: normal lung sounds bilaterally. Absent: respiratory distress, wheezes, rales, rhonchi, stridor Cardiovascular Exam: Present: regular rate, normal rhythm, normal heart sounds. Absent: systolic murmur, diastolic murmur, rubs, gallop, clicks GI/Abdominal exam: Present: soft, normal bowel sounds. Absent: distended, tenderness, guarding, rebound, rigid Extremities exam: Present: full ROM, normal capillary refill, other (Patient has bilateral lower extremity edema, 3+ pitting. There is erythema and warmth noted over the dorsal aspect of each foot and miranda. Patient has superficial wounds to the dorsal aspect of each foot.). Absent: normal inspection, tenderness, pedal edema, joint swelling, calf tenderness Back exam: Present: normal inspection Neurological exam: Present: alert, oriented X3, CN II-XII intact Psychiatric exam: Present: normal affect, normal mood Skin exam: Present: warm, dry, intact, normal color. Absent: rash Course Vital Signs 05/25/18 05/25/18 05/25/18 17:14 19:00 19:34 Temperature 98.0 F Pulse Rate 72 72 68 Respiratory 16 24 Rate Blood Pressure 155/76 146/59 O2 Sat by Pulse 95 90 L Oximetry 05/25/18 19:48 Temperature Pulse Rate 70 Respiratory Rate Blood Pressure O2 Sat by Pulse Oximetry EKG Findings - EKG Comments: EKG Findings:: EKG obtained at 1811 shows normal sinus rhythm with a ventricular rate is 71, KS interval 156, QRS duration 74, QTC 422, QTc 458. No evidence of ST elevation or depression. Medical Decision Making - Medical Decision Making 82-year-old female patient presents the emergency department today for evaluation of increased lower leg edema, cellulitis, and dyspnea. Patient is also experiencing urinary retention. Physical examination did reveal 3+ pitting edema to the bilateral lower legs and feet. Patient also has evidence of cellulitis to the dorsal aspect of the feet and the shins bilaterally. There are shallow wounds to the dorsal aspect of both feet. Patient is hypoxic between 90 and 95% to the emergency department. Labs reviewed and did reveal BUN of 28, creatinine of 1.25, BNP of 4280. Patient does take Bumex at home, this will be provided IV here in the hospital. Saucedo catheter was inserted for urinary retention. Antibiotics are started for cellulitis. Patient will be admitted to Dr. Kumar and Dr. Trevizo will be consulted. - Lab Data Result diagrams: 05/25/18 19:10 05/25/18 19:10 Lab Results 05/25/18 05/25/18 05/25/18 Range/Units 19:10 19:10 19:10 WBC 8.3 (3.8-10.6) k/uL RBC 3.99 (3.80-5.40) m/uL Hgb 12.5 (11.4-16.0) gm/dL Hct 38.7 (34.0-46.0) % MCV 96.9 (80.0-100.0) fL MCH 31.4 (25.0-35.0) pg MCHC 32.4 (31.0-37.0) g/dL RDW 15.0 (11.5-15.5) % Plt Count 185 (150-450) k/uL Neutrophils % 64 % Lymphocytes % 23 % Monocytes % 6 % Eosinophils % 5 % Basophils % 0 % Neutrophils # 5.3 (1.3-7.7) k/uL Lymphocytes # 1.9 (1.0-4.8) k/uL Monocytes # 0.5 (0-1.0) k/uL Eosinophils # 0.4 (0-0.7) k/uL Basophils # 0.0 (0-0.2) k/uL PT 12.3 H (9.0-12.0) sec INR 1.3 H (<1.2) APTT 22.8 (22.0-30.0) sec Sodium 138 (137-145) mmol/L Potassium 4.1 (3.5-5.1) mmol/L Chloride 99 (98-107) mmol/L Carbon Dioxide 34 H (22-30) mmol/L Anion Gap 5 mmol/L BUN 28 H (7-17) mg/dL Creatinine 1.25 H (0.52-1.04) mg/dL Est GFR (CKD-EPI)AfAm 47 (>60 ml/min/1.73 sqM) Est GFR (CKD-EPI)NonAf 41 (>60 ml/min/1.73 sqM) Glucose 96 (74-99) mg/dL Calcium 8.5 (8.4-10.2) mg/dL Total Bilirubin 1.4 H (0.2-1.3) mg/dL AST 22 (14-36) U/L ALT 47 (9-52) U/L Alkaline Phosphatase 72 (38-126) U/L Total Creatine Kinase (30-135) U/L CK-MB (CK-2) (0.0-2.4) ng/mL CK-MB (CK-2) Rel Index Troponin I (0.000-0.034) ng/mL NT-Pro-B Natriuret Pep pg/mL Total Protein 5.7 L (6.3-8.2) g/dL Albumin 2.9 L (3.5-5.0) g/dL 05/25/18 05/25/18 Range/Units 19:10 19:10 WBC (3.8-10.6) k/uL RBC (3.80-5.40) m/uL Hgb (11.4-16.0) gm/dL Hct (34.0-46.0) % MCV (80.0-100.0) fL MCH (25.0-35.0) pg MCHC (31.0-37.0) g/dL RDW (11.5-15.5) % Plt Count (150-450) k/uL Neutrophils % % Lymphocytes % % Monocytes % % Eosinophils % % Basophils % % Neutrophils # (1.3-7.7) k/uL Lymphocytes # (1.0-4.8) k/uL Monocytes # (0-1.0) k/uL Eosinophils # (0-0.7) k/uL Basophils # (0-0.2) k/uL PT (9.0-12.0) sec INR (<1.2) APTT (22.0-30.0) sec Sodium (137-145) mmol/L Potassium (3.5-5.1) mmol/L Chloride (98-107) mmol/L Carbon Dioxide (22-30) mmol/L Anion Gap mmol/L BUN (7-17) mg/dL Creatinine (0.52-1.04) mg/dL Est GFR (CKD-EPI)AfAm (>60 ml/min/1.73 sqM) Est GFR (CKD-EPI)NonAf (>60 ml/min/1.73 sqM) Glucose (74-99) mg/dL Calcium (8.4-10.2) mg/dL Total Bilirubin (0.2-1.3) mg/dL AST (14-36) U/L ALT (9-52) U/L Alkaline Phosphatase (38-126) U/L Total Creatine Kinase <20 L (30-135) U/L CK-MB (CK-2) 0.6 (0.0-2.4) ng/mL CK-MB (CK-2) Rel Index Troponin I <0.012 (0.000-0.034) ng/mL NT-Pro-B Natriuret Pep 4280 pg/mL Total Protein (6.3-8.2) g/dL Albumin (3.5-5.0) g/dL - Radiology Data Radiology results: report reviewed, image reviewed Two-view x-ray of the chest is obtained. Report was reviewed in its entirety. Impression by Dr. Quick shows pulmonary interstitial fibrotic changes. There is some left upper lobe pneumonia that is new compared to last exam. There are fibrotic changes at the lung apices. I see no pleural fluid to suggest heart failure. Heart is not enlarged. Disposition Clinical Impression: CHF (congestive heart failure), Bilateral cellulitis of lower leg, Edema, Urinary retention Disposition: ADMITTED IP TO THIS HOSP Condition: Serious Referrals: Elham Kumar MD [Primary Care Provider] - 1-2 days Decision to Admit Reason: Admit from EC Decision Date: 05/25/18 Decision Time: 20:16
[2018-05-25] MEDS ORDERED: IPRATROPIUM-ALBUTEROL 3 ML NEB INHALATION STA (18:33)
--- NOTE | 2018-05-25 19:16 | XR ---
EXAMINATION TYPE: XR chest 2V DATE OF EXAM: 05/25/2018 COMPARISON: 05/05/2018 HISTORY: Short of breath TECHNIQUE: Frontal and lateral views of the chest are obtained. FINDINGS: There is some coarsening of interstitial pulmonary markings. There is some spurring and na rrowing at the right shoulder joint. There is left axillary pacemaker with the lead tips in the right ventricle. There is no pleural effusion. There is some mild infiltrate in the left upper lobe above the left pulmonary hilum. IMPRESSION: Pulmonary interstitial fibrotic changes. There is some left upper lobe pneumonia that is new compared to last exam. There are fibrotic changes at the lung apices. I see no pleural fluid to suggest heart failure. Heart is not enlarged.
[2018-05-25 19:29] LABS: Basophils % (A) 0 %; Eosinophils # (A) 0.4 k/uL (0-0.7); Eosinophils % (A) 5 %; HCT 38.7 % (34.0-46.0); HGB 12.5 gm/dL (11.4-16.0); Lymphocytes # (A) 1.9 k/uL (1.0-4.8); Lymphocytes % (A) 23 %; MCH 31.4 pg (25.0-35.0); MCHC 32.4 g/dL (31.0-37.0); MCV 96.9 fL (80.0-100.0); Mean Platelet Volume 7.5; Monocytes # (A) 0.5 k/uL (0-1.0); Monocytes % (A) 6 %; Neutrophils # (A) 5.3 k/uL (1.3-7.7); Neutrophils % (A) 64 %; Platelet Count 185 k/uL (150-450); RBC 3.99 m/uL (3.80-5.40); WBC 8.3 k/uL (3.8-10.6)
[2018-05-25 19:41] LABS: Albumin 2.9 g/dL (3.5-5.0); Calcium 8.5 mg/dL (8.4-10.2); Potassium 4.1 mmol/L (3.5-5.1); Total Bilirubin 1.4 mg/dL (0.2-1.3); Total Protein 5.7 g/dL (6.3-8.2)
[2018-05-25 19:52] LABS: Creatine Kinase <20 U/L (30-135)
[2018-05-25 19:53] LABS: INR 1.3 (<1.2); Partial Thromboplastin Time 22.8 sec (22.0-30.0); Prothrombin Time 12.3 sec (9.0-12.0)
[2018-05-25] MEDS ORDERED: NALOXONE 0.4 MG/ML 1 ML VIAL IV PRN (19:57)
[2018-05-25 20:05] LABS: Creatine Kinase MB 0.6 ng/mL (0.0-2.4); Troponin I <0.012 ng/mL (0.000-0.034)
[2018-05-25] MEDS ORDERED: BUMETANIDE 0.25 MG/ML 4 ML VIAL IVP STA (20:07)
[2018-05-25] MEDS ORDERED: CALCIUM CARBONATE 500 MG CHEWABLE PO PRN (20:08)
[2018-05-25] MEDS ORDERED: FAMOTIDINE 20 MG TAB PO PRN (20:08)
[2018-05-25] MEDS ORDERED: HYDROcodone/APAP 5-325MG 1 EACH TAB PO PRN (20:08)
[2018-05-25] MEDS ORDERED: LORATADINE 10 MG TAB PO PRN (20:08)
[2018-05-25] MEDS ORDERED: ARTIFICIAL TEARS-HYPROMELLOSE DROPS 15 ML BTL BOTH EYES PRN (20:08)
[2018-05-25] MEDS ORDERED: VANCOMYCIN IV PER PHARMACY 1 EACH MISC MISCELLANE PRN (20:15)
[2018-05-25] MEDS ORDERED: VANCOMYCIN 1,750 MG in SODIUM CHLORIDE 0.9% 500 ML IVPB STA (20:28)
[2018-05-25 20:36] LABS: Appearance,Urine Cloudy (Clear); Bacteria,Urine Occasional /hpf; Bilirubin,Urine Negative (Negative); Blood,Urine Negative (Negative); Color,Urine Yellow; Glucose,Urine (UA) Negative (Negative); Hyaline Casts,Urine 3 /lpf (0-2); Ketones,Urine Negative (Negative); Leukocyte Esterase,Urine Large (Negative); Mucus,Urine Rare /hpf; Nitrite,Urine Negative (Negative); PH, Urine 5.5 (5.0-8.0); Protein,Urine Negative (Negative); RBC,Urine 1 /hpf (0-5); Specific Gravity,Urine 1.011 (1.001-1.035); Squamous Epithelial Cell,Urine <1 /hpf (0-4); Urobilinogen,Urine <2.0 mg/dL (<2.0); WBC,Urine 23 /hpf (0-5)
[2018-05-25] MEDS: SODIUM CHLORIDE 0.9% 1,000 ML IV SCH (21:00)
[2018-05-25] MEDS: APIXABAN 2.5 MG TABLET PO SCH (23:31)
[2018-05-25] MEDS: MONTELUKAST 10 MG TAB PO SCH (23:31)
[2018-05-25] MEDS: GABAPENTIN 100 MG CAP PO SCH (23:31)
[2018-05-25] MEDS: LATANOPROST 0.005% OPHTH DROPS 2.5 ML BTL RIGHT EYE SCH (23:31)
[2018-05-25] MEDS: VERAPAMIL 40 MG TAB PO SCH (23:32)
[2018-05-25] MEDS: METOPROLOL TARTRATE 50 MG TAB PO SCH (23:32)
[2018-05-26 01:00] VITALS: BMI 34.3
[2018-05-26] MEDS: DRONEDARONE 400 MG TAB PO SCH ×2 (06:31→18:15)
[2018-05-26 07:20] LABS: Basophils % (A) 0 %; Eosinophils # (A) 0.3 k/uL (0-0.7); Eosinophils % (A) 4 %; HCT 36.4 % (34.0-46.0); HGB 11.7 gm/dL (11.4-16.0); Lymphocytes # (A) 1.5 k/uL (1.0-4.8); Lymphocytes % (A) 21 %; MCH 31.1 pg (25.0-35.0); MCV 97.3 fL (80.0-100.0); Mean Platelet Volume 7.3; Monocytes # (A) 0.4 k/uL (0-1.0); Monocytes % (A) 5 %; Neutrophils % (A) 67 %; Platelet Count 170 k/uL (150-450); RBC 3.75 m/uL (3.80-5.40); RDW 15.3 % (11.5-15.5); WBC 7.4 k/uL (3.8-10.6)
[2018-05-26] MEDS: IPRATROPIUM-ALBUTEROL 3 ML NEB INHALATION PRN ×3 (07:32→19:11)
[2018-05-26 07:35] LABS: Albumin 2.4 g/dL (3.5-5.0); Calcium 8.1 mg/dL (8.4-10.2); Potassium 3.7 mmol/L (3.5-5.1); Total Bilirubin 1.3 mg/dL (0.2-1.3); Total Protein 4.9 g/dL (6.3-8.2)
[2018-05-26] MEDS ORDERED: SYMBICORT 160-4.5 MCG INHALER INHALATION SCH (08:00)
[2018-05-26] MEDS ORDERED: BUMETANIDE 1 MG TAB PO SCH (09:00)
[2018-05-26] MEDS: GABAPENTIN 100 MG CAP PO SCH (09:28)
[2018-05-26] MEDS: BUMETANIDE 0.25 MG/ML 4 ML VIAL IVP SCH ×2 (09:28→21:56)
[2018-05-26] MEDS: CHOLECALCIFEROL 1,000 UNIT TAB PO SCH (09:28)
[2018-05-26] MEDS: VERAPAMIL 40 MG TAB PO SCH ×3 (09:29→20:46)
[2018-05-26] MEDS: ASCORBIC ACID 500 MG TAB PO SCH (09:29)
[2018-05-26] MEDS: APIXABAN 2.5 MG TABLET PO SCH ×2 (09:29→20:46)
[2018-05-26] MEDS: METOPROLOL TARTRATE 50 MG TAB PO SCH ×3 (09:29→20:46)
--- NOTE | 2018-05-26 09:29 | P.CRDCN ---
History of Present Illness Consult date: 05/26/18 Requesting physician: Elham Kumar Consult reason: congestive heart failure Chief complaint: Weight gain, peripheral edema, shortness of breath History of present illness: This is an 82-year-old female who follows regularly with Dr. Holliday in the office. She has known history of hypertension,, paroxysmal atrial fibrillation, was recently in the hospital in April with congestive heart failure exacerbation, patient also underwent implantation of a permanent pacemaker by Dr. Espana as scheduled in June 25 undergo ablation of her atrial fibrillation. She has been staying at rehab at [facility], she states that she's been having significant difficulty in urinating and has been retaining a lot of fluid. She's been more short of breath than usual as well. For these reasons she came to the emergency room for further evaluation. Chest x-ray on admission here showed pulmonary interstitial fibrotic changes with some left upper lobe pneumonia as compared with prior exam, fibrotic changes in the lung apices. EKG shows a normal sinus rhythm with no acute changes. Blood pressure on arrival here 150/70 with a heart rate in the 70s, 95% on room air. White blood cell count is normal, hemoglobin 11.7, platelet count 170. Sodium 140, potassium 3.7, BUN 24, creatinine 1.0. Troponin is normal, BNP level 4280. Patient was initiated on IV Bumex in the emergency room, and has been diuresing well. She did have an echocardiogram with Doppler study performed in April of this year which revealed normal left ventricular systolic function. Patient is currently on Eliquis 2-1/2 mg twice a day, Bumex 1 mg IV twice a day, metoprolol 100 mg by mouth 3 times a day and verapamil 40 3 times a day. She has also been initiated on IV antibiotics. Past Medical History Past Medical History: Atrial Fibrillation, Asthma, Heart Failure, COPD, Hypertension, Thyroid Disorder History of Any Multi-Drug Resistant Organisms: None Reported Past Surgical History: AICD, Hysterectomy, Pacemaker, Tonsillectomy Additional Past Surgical History / Comment(s): bladder suspension, ectopic, thyroid biopsy, cataract, glaucoma sx AICD/Pacer implant done in Apr Type of Cardiac Device: Permanent Pacemaker, AICD Device Placement Date:: Apr 2018 Past Psychological History: No Psychological Hx Reported Smoking Status: Former smoker Past Alcohol Use History: None Reported Past Drug Use History: None Reported Medications and Allergies Home Medications Medication Instructions Recorded Confirmed Type Ascorbic Acid [Vitamin C] 500 mg PO DAILY 04/27/18 05/25/18 History Calcium Carbonate [Tums] 500 - 1,000 mg PO TID PRN 04/27/18 05/25/18 History Carboxymethylcellulose Sodium 1 - 2 drop BOTH EYES QID PRN 04/27/18 05/25/18 History [Refresh Tears] Cholecalciferol (Vitamin D3) 2,000 unit PO DAILY 04/27/18 05/25/18 History [Vitamin D3] Claritin 12 Hour Reditabs 1 tab PO Q12H PRN 04/27/18 05/25/18 History Fluticasone/Vilanterol [Breo 1 puff INHALATION RT-DAILY 04/27/18 05/25/18 History Ellipta 200-25 Mcg INH] Ipratropium/Albuterol Sulfate 1 puff INHALATION RT-QID PRN 04/27/18 05/25/18 History [Combivent Respimat Inhaler] Latanoprost [Xalatan 0.005%] 1 drop RIGHT EYE HS 04/27/18 05/25/18 History Montelukast [Singulair] 10 mg PO HS 04/27/18 05/25/18 History Ranitidine HCl [Zantac] 150 mg PO BID PRN 04/27/18 05/25/18 History Apixaban [Eliquis] 2.5 mg PO BID tablet 05/07/18 05/25/18 Rx Bumetanide [BUMEX] 1 mg PO BID@0900,1600 tab 05/07/18 05/25/18 Rx Dronedarone [Multaq] 400 mg PO AC-BID tab 05/07/18 05/25/18 Rx Gabapentin [Neurontin] 100 mg PO BID cap 05/07/18 05/25/18 Rx Metoprolol Tartrate [Lopressor] 100 mg PO TID tab 05/07/18 05/25/18 Rx Verapamil [Isoptin] 40 mg PO TID tab 05/07/18 05/25/18 Rx HYDROcodone/APAP 5-325MG [Tyler 1 tab PO Q4HR PRN 05/25/18 05/25/18 History 5-325] Allergies Allergy/AdvReac Type Severity Reaction Status Date / Time amlodipine Allergy Unknown Verified 05/25/18 17:28 benazepril [From Lotrel] Allergy Unknown Verified 05/25/18 17:28 cephalexin [From Keflex] Allergy Anaphylaxis Verified 05/25/18 17:28 Cephalosporins Allergy Anaphylaxis Verified 05/25/18 17:28 codeine Allergy Unknown Verified 05/25/18 17:28 gabapentin Allergy Swelling Verified 05/25/18 17:28 Iodinated Contrast- Oral and Allergy Anaphylaxis Verified 05/25/18 17:28 IV Dye nebivolol [From Bystolic] Allergy Unknown Verified 05/25/18 17:28 olmesartan [From Benicar] Allergy Unknown Verified 05/25/18 17:28 Penicillins Allergy Anaphylaxis Verified 05/25/18 17:28 Sulfa (Sulfonamide Allergy Anaphylaxis Verified 05/25/18 17:28 Antibiotics) apixaban [From Eliquis] AdvReac BONE PAIN Verified 05/25/18 17:28 clonidine AdvReac BLURRED Verified 05/25/18 17:28 VISION, DIZZY, SCRATCHY THROAT furosemide [From Lasix] AdvReac Nausea & Verified 05/25/18 17:28 Vomiting & Diarrhea hydralazine AdvReac CHILLS, Verified 05/25/18 17:28 SHAKING, LIGHT HEADED, FACE FLUSHED isosorbide [From Imdur] AdvReac Rapid Verified 05/25/18 17:28 Heart Rate labetalol AdvReac Dyspnea Verified 05/25/18 17:28 lisinopril AdvReac Nausea & Verified 05/25/18 17:28 Vomiting & Diarrhea/COUGH PAPER MEDICAL TAPE Allergy Unknown Uncoded 05/25/18 17:20 Physical Exam Vitals: Vital Signs Temp Pulse Pulse Resp BP BP Pulse Ox 05/26/18 07:48 80 05/26/18 07:37 82 05/26/18 04:00 98 F 84 20 161/77 93 L 05/26/18 01:03 72 18 05/25/18 23:28 99 F 84 18 161/74 91 L 05/25/18 22:46 72 20 165/78 95 05/25/18 22:12 98.2 F 72 20 177/77 91 L 05/25/18 20:25 72 20 195/83 90 L 05/25/18 19:48 70 05/25/18 19:34 68 05/25/18 19:00 98.0 F 72 24 146/59 90 L 05/25/18 17:14 72 16 155/76 95 Intake and Output 05/25/18 05/26/18 05/26/18 22:59 06:59 14:59 Intake Total 100 Output Total 910 750 Balance -910 -650 Intake: Intake, IV Titration 100 Amount Sodium Chloride 0.9% 1, 100 000 ml @ 20 mls/hr IV . Q24H [facility] Rx#:[id number] Output: Urine 910 750 Uretheral (Saucedo) 600 Other: Weight 96.6 kg 96.6 kg PHYSICAL EXAMINATION: GENERAL: 82-year-old female in no acute distress at the time of examination HEENT: Head is atraumatic, normocephalic. Pupils equal, round. Sclera anicteric. Conjunctiva are clear. Mucous membranes of the mouth are moist. Neck is supple. There is elevated jugular venous pressure. No carotid bruit is heard. HEART EXAMINATION: [Heart S1 and S2 systolic murmur is heard. CHEST EXAMINATION:[ Lungs are clear with diminished air entry to bilateral bases ABDOMEN: [Soft, nontender. Bowel sounds are heard. No organomegaly noted] EXTREMITIES:[. 2+ peripheral pulses with 2-3+ evidence of peripheral edema , significant redness on bilateral feet and miranda areas. Dressings in place]. NEUROLOGIC [patient is awke, alert and riented X3. . Results 05/26/18 06:54 05/26/18 06:54 Cardiac Enzymes 05/25/18 05/25/18 05/26/18 Range/Units 19:10 19:10 06:54 AST 22 19 (14-36) U/L CK-MB (CK-2) 0.6 (0.0-2.4) ng/mL Troponin I <0.012 (0.000-0.034) ng/mL Coagulation 05/25/18 Range/Units 19:10 PT 12.3 H (9.0-12.0) sec APTT 22.8 (22.0-30.0) sec CBC 05/25/18 05/26/18 Range/Units 19:10 06:54 WBC 8.3 7.4 (3.8-10.6) k/uL RBC 3.99 3.75 L (3.80-5.40) m/uL Hgb 12.5 11.7 (11.4-16.0) gm/dL Hct 38.7 36.4 (34.0-46.0) % Plt Count 185 170 (150-450) k/uL Comprehensive Metabolic Panel 05/25/18 05/26/18 Range/Units 19:10 06:54 Sodium 138 140 (137-145) mmol/L Potassium 4.1 3.7 (3.5-5.1) mmol/L Chloride 99 103 (98-107) mmol/L Carbon Dioxide 34 H 32 H (22-30) mmol/L BUN 28 H 24 H (7-17) mg/dL Creatinine 1.25 H 1.06 H (0.52-1.04) mg/dL Glucose 96 83 (74-99) mg/dL Calcium 8.5 8.1 L (8.4-10.2) mg/dL AST 22 19 (14-36) U/L ALT 47 34 (9-52) U/L Alkaline Phosphatase 72 60 (38-126) U/L Total Protein 5.7 L 4.9 L (6.3-8.2) g/dL Albumin 2.9 L 2.4 L (3.5-5.0) g/dL Current Medications Generic Name Dose Route Start Last Admin Trade Name Freq PRN Reason Stop Dose Admin Hydrocodone Bitart/Acetaminophen 1 each 05/25/18 20:08 Tyler 5-325 PO Q4HR PRN Moderate Pain Albuterol/Ipratropium 3 ml 05/25/18 20:08 05/26/18 07:32 Duoneb 0.5 Mg-3 Mg/3 Ml Soln INHALATION 3 ml RT-QID PRN Administration Shortness Of Breath Apixaban 2.5 mg 05/25/18 21:00 05/25/18 23:31 Eliquis PO 2.5 mg BID ОЛЕГ Administration Artificial Tears 2 drops 05/25/18 20:08 Artificial Tear Drops BOTH EYES QID PRN Dry Eye(s) Ascorbic Acid 500 mg 05/26/18 09:00 Vitamin C PO DAILY ОЛЕГ Budesonide/Formoterol Fumarate 2 puff 05/26/18 08:00 05/26/18 07:32 Symbicort 160-4.5 Mcg Inhaler INHALATION 2 puff RT-BID ОЛЕГ Administration Bumetanide 1 mg 05/26/18 09:00 Bumex IVP BID ОЛЕГ Calcium Carbonate/Glycine 500 - 1,000 mg 05/25/18 20:08 Tums PO TID PRN Heartburn Cholecalciferol 2,000 unit 05/26/18 09:00 Vitamin D3 PO DAILY ОЛЕГ Dronedarone 400 mg 05/26/18 07:30 05/26/18 06:31 Multaq PO Not Given AC-BID [facility] Famotidine 20 mg 05/25/18 20:08 Pepcid PO BID PRN Heartburn Gabapentin 100 mg 05/25/18 21:00 05/25/18 23:31 Neurontin PO 100 mg BID ОЛЕГ Administration Sodium Chloride 1,000 mls @ 20 mls/hr 05/25/18 20:00 05/25/18 21:00 Saline 0.9% IV 20 mls/hr .Q24H ОЛЕГ Administration Vancomycin HCl 1,750 mg/ 500 mls @ 167 mls/hr 05/26/18 13:00 Sodium Chloride IVPB DAILY [facility] Latanoprost 1 drops 05/25/18 21:00 05/25/18 23:31 Xalatan 0.005% RIGHT EYE 1 drops HS [facility] Administration Loratadine 10 mg 05/25/18 20:08 Claritin PO Q24H PRN Allergy Symptoms Metoprolol Tartrate 100 mg 05/25/18 22:00 05/25/18 23:32 Lopressor PO 100 mg TID ОЛЕГ Administration Montelukast Sodium 10 mg 05/25/18 21:00 05/25/18 23:31 Singulair PO 10 mg HS ОЛЕГ Administration Naloxone HCl 0.2 mg 05/25/18 19:57 Narcan IV Q2M PRN Opioid Reversal Verapamil HCl 40 mg 05/25/18 22:00 05/25/18 23:32 Isoptin PO 40 mg TID ОЛЕГ Administration Intake and Output 05/25/18 05/26/18 05/26/18 22:59 06:59 14:59 Intake Total 100 Output Total 910 750 Balance -910 -650 Intake: Intake, IV Titration 100 Amount Sodium Chloride 0.9% 1, 100 000 ml @ 20 mls/hr IV . Q24H [facility] Rx#:[id number] Output: Urine 910 750 Uretheral (Saucedo) 600 Other: Weight 96.6 kg 96.6 kg 05/26/18 06:54 05/26/18 06:54 EKG Interpretations (text) EKG shows a normal sinus rhythm with no acute changes. Assessment and Plan Plan: Assessment and plan #1 congestive heart failure, diastolic, acute on chronic #2 COPD #3 paroxysmal atrial fibrillation, on Eliquis for anticoagulation, patient scheduled for an ablation in June #4 recent pacemaker implantation #5 hypertension #6 prior history of smoking #7 significant bilateral lower extremity edema with possible cellulitis Plan An echocardiogram with Doppler study was performed in April which revealed a normal left ventricular systolic function. We will not repeat an echo this admission. We will continue IV Bumex, continue to monitor intake and output along with daily weights and daily lytes BUN and creatinine. Further recommendations to follow DNP note has been reviewed, I agree with a documented findings and plan of care. Patient was seen and examined.
--- NOTE | 2018-05-26 09:52 | P.CNPUL ---
<Albertina Pérez E - Last Filed: 05/26/18 13:53> History of Present Illness Consult date: 05/26/18 Requesting physician: Elham Kumar Reason for consult: dyspnea Chief complaint: shortness of breath History of present illness: This is an 82-year-old female patient well-known to our services being seen examined and evaluated today on consultation. The patient came in to the emergency room from [facility] with complaints of shortness of breath that had been getting worse over the past few days as well as increase in her lower extremity edema. This patient was previously hospitalized from 04/28/2018 and discharged on 05/08/18, with CHF and A. fib, the patient did undergo a cardiac catheterization as well as a cardioversion during that addmission but the patient did go back into A. fib. The patient did undergo a pacemaker insertion as well during her last admission. She is being seen in the outpatient setting and is supposed to be scheduled with Dr. Espana for a cardiac ablation in a few weeks. Apparently at the [facility], the patient was experiencing shortness of breath, increased edema in the bilateral lower extremities and had some urinary retention for which she was straight cathed a few times for, as well as a 16 pound weight gain in the last few days. Upon evaluation in the emergency room the patient was also noted to have erythema and warmth over the dorsal aspect of each foot and miranda. She did have some superficial wounds/cellulitis to the dorsal aspect of each foot. Noted to have +3 lateral lower extremity edema. Chest x-ray was obtained and did show pulmonary interstitial fibrotic changes with some left upper lobe pneumonia that was new compared to last exam as well as fibrotic changes in the lung apices. She was also noted to be hypoxic and did require 2 L of supplemental oxygen via nasal cannula. Hernandez catheter was inserted for urinary retention and she was admitted for further evaluation and workup. Upon examination today the patient is resting up in bed on 2 L of supplemental oxygen via nasal cannula. She does have bilateral Abran wraps on her legs. She does have some shortness of breath with exertion, does complain of some intermittent congested cough no sputum production. She has had good output from her Hernandez catheter. Urinalysis is positive for UTI, culture pending. Cardiology is on consult for seeing the patient. Daughter is at bedside and updated on plan of care. Review of Systems 14 point review of systems was completed and is negative unless noted above in the HPI Past Medical History Past Medical History: Atrial Fibrillation, Asthma, Heart Failure, COPD, Hypertension, Thyroid Disorder History of Any Multi-Drug Resistant Organisms: None Reported Past Surgical History: AICD, Hysterectomy, Pacemaker, Tonsillectomy Additional Past Surgical History / Comment(s): bladder suspension, ectopic, thyroid biopsy, cataract, glaucoma sx AICD/Pacer implant done in Apr Type of Cardiac Device: Permanent Pacemaker, AICD Device Placement Date:: Apr 2018 Past Psychological History: No Psychological Hx Reported Smoking Status: Former smoker Past Alcohol Use History: None Reported Past Drug Use History: None Reported Medications and Allergies Home Medications Medication Instructions Recorded Confirmed Type Ascorbic Acid [Vitamin C] 500 mg PO DAILY 04/27/18 05/25/18 History Calcium Carbonate [Tums] 500 - 1,000 mg PO TID PRN 04/27/18 05/25/18 History Carboxymethylcellulose Sodium 1 - 2 drop BOTH EYES QID PRN 04/27/18 05/25/18 History [Refresh Tears] Cholecalciferol (Vitamin D3) 2,000 unit PO DAILY 04/27/18 05/25/18 History [Vitamin D3] Claritin 12 Hour Reditabs 1 tab PO Q12H PRN 04/27/18 05/25/18 History Fluticasone/Vilanterol [Breo 1 puff INHALATION RT-DAILY 04/27/18 05/25/18 History Ellipta 200-25 Mcg INH] Ipratropium/Albuterol Sulfate 1 puff INHALATION RT-QID PRN 04/27/18 05/25/18 History [Combivent Respimat Inhaler] Latanoprost [Xalatan 0.005%] 1 drop RIGHT EYE HS 04/27/18 05/25/18 History Montelukast [Singulair] 10 mg PO HS 04/27/18 05/25/18 History Ranitidine HCl [Zantac] 150 mg PO BID PRN 04/27/18 05/25/18 History Apixaban [Eliquis] 2.5 mg PO BID tablet 05/07/18 05/25/18 Rx Bumetanide [BUMEX] 1 mg PO BID@0900,1600 tab 05/07/18 05/25/18 Rx Dronedarone [Multaq] 400 mg PO AC-BID tab 05/07/18 05/25/18 Rx Gabapentin [Neurontin] 100 mg PO BID cap 05/07/18 05/25/18 Rx Metoprolol Tartrate [Lopressor] 100 mg PO TID tab 05/07/18 05/25/18 Rx Verapamil [Isoptin] 40 mg PO TID tab 05/07/18 05/25/18 Rx HYDROcodone/APAP 5-325MG [Barnum 1 tab PO Q4HR PRN 05/25/18 05/25/18 History 5-325] Allergies Allergy/AdvReac Type Severity Reaction Status Date / Time amlodipine Allergy Unknown Verified 05/25/18 17:28 benazepril [From Lotrel] Allergy Unknown Verified 05/25/18 17:28 cephalexin [From Keflex] Allergy Anaphylaxis Verified 05/25/18 17:28 Cephalosporins Allergy Anaphylaxis Verified 05/25/18 17:28 codeine Allergy Unknown Verified 05/25/18 17:28 gabapentin Allergy Swelling Verified 05/25/18 17:28 Iodinated Contrast- Oral and Allergy Anaphylaxis Verified 05/25/18 17:28 IV Dye nebivolol [From Bystolic] Allergy Unknown Verified 05/25/18 17:28 olmesartan [From Benicar] Allergy Unknown Verified 05/25/18 17:28 Penicillins Allergy Anaphylaxis Verified 05/25/18 17:28 Sulfa (Sulfonamide Allergy Anaphylaxis Verified 05/25/18 17:28 Antibiotics) apixaban [From Eliquis] AdvReac BONE PAIN Verified 05/25/18 17:28 clonidine AdvReac BLURRED Verified 05/25/18 17:28 VISION, DIZZY, SCRATCHY THROAT furosemide [From Lasix] AdvReac Nausea & Verified 05/25/18 17:28 Vomiting & Diarrhea hydralazine AdvReac CHILLS, Verified 05/25/18 17:28 SHAKING, LIGHT HEADED, FACE FLUSHED isosorbide [From Imdur] AdvReac Rapid Verified 05/25/18 17:28 Heart Rate labetalol AdvReac Dyspnea Verified 05/25/18 17:28 lisinopril AdvReac Nausea & Verified 05/25/18 17:28 Vomiting & Diarrhea/COUGH PAPER MEDICAL TAPE Allergy Unknown Uncoded 05/25/18 17:20 Physical Exam Vitals: Vital Signs Temp Pulse Pulse Resp BP BP Pulse Ox 05/26/18 07:48 80 05/26/18 07:37 82 05/26/18 04:00 98 F 84 20 161/77 93 L 05/26/18 01:03 72 18 05/25/18 23:28 99 F 84 18 161/74 91 L 05/25/18 22:46 72 20 165/78 95 05/25/18 22:12 98.2 F 72 20 177/77 91 L 05/25/18 20:25 72 20 195/83 90 L 05/25/18 19:48 70 05/25/18 19:34 68 05/25/18 19:00 98.0 F 72 24 146/59 90 L 05/25/18 17:14 72 16 155/76 95 Intake and Output 05/25/18 05/26/18 05/26/18 22:59 06:59 14:59 Intake Total 100 Output Total 910 750 Balance -910 -650 Intake: Intake, IV Titration 100 Amount Sodium Chloride 0.9% 1, 100 000 ml @ 20 mls/hr IV . Q24H [facility] Rx#:[id number] Output: Urine 910 750 Uretheral (Hernandez) 600 Other: Weight 96.6 kg 96.6 kg GENERAL EXAM: Alert, comfortable in no apparent distress. HEAD: Normocephalic. EYES: Normal reaction of pupils, equal size. NOSE: Clear with pink turbinates. THROAT: No erythema or exudates. NECK: No masses, no JVD. CHEST: No chest wall deformity. LUNGS: Lung sounds noted to be diminished with a faint expiratory wheeze. Bases diminished CVS: S1 and S2 normal with no audible mumurs, regular rhythm. ABDOMEN: No hepatosplenomegaly, normal bowel sounds, no guarding or rigidity. EXTREMITIES: +3 edema noted, Patient noted to have some bilateral erythema and warmth as well as signs of cellulitis CENTRAL NERVOUS SYSTEM: No focal deficits, tone is normal in all 4 extremities. Results - Laboratory Findings CBC and BMP: 05/26/18 06:54 05/26/18 06:54 PT/INR, D-dimer PT 12.3 sec (9.0-12.0) H 05/25/18 19:10 INR 1.3 (<1.2) H 05/25/18 19:10 Abnormal lab findings: Abnormal Labs 05/25/1818 18 19:10 19:10 19:10 RBC PT 12.3 H INR 1.3 H Carbon Dioxide 34 H BUN 28 H Creatinine 1.25 H Calcium Total Bilirubin 1.4 H Total Creatine Kinase <20 L Total Protein 5.7 L Albumin 2.9 L Urine Appearance Ur Leukocyte Esterase Urine WBC Urine WBC Clumps Urine Bacteria Hyaline Casts Urine Mucus 05/25/18 05/26/18 05/26/18 20:18 06:54 06:54 RBC 3.75 L PT INR Carbon Dioxide 32 H BUN 24 H Creatinine 1.06 H Calcium 8.1 L Total Bilirubin Total Creatine Kinase Total Protein 4.9 L Albumin 2.4 L Urine Appearance Cloudy H Ur Leukocyte Esterase Large H Urine WBC 23 H Urine WBC Clumps Occasional H Urine Bacteria Occasional H Hyaline Casts 3 H Urine Mucus Rare H - Diagnostic Findings Chest x-ray: report reviewed, image reviewed Assessment and Plan Assessment: Assessment Acute hypoxic respiratory failure Acute exacerbation of CHF Possible left upper lobe pneumonia Acute exacerbation of COPD Chronic moderate to severe persistent asthma not acutely exacerbated Lower extremity edema Bilateral lower extremity cellulitis Present on admission UTI Urinary retention Moderate protein calorie malnutrition Obesity History of Paroxysmal atrial fibrillation Plan Medications reviewed and will be continued as ordered Cultures pending Bumex for diuresis Antibiotics O2 to maintain saturation greater than or equal to 90% Duo nebs and Pulmicort Singulair Monitor I's and O's Daily weights Cardiology recommendations Incentive spirometry and pulmonary hygiene Increase activity as tolerated PT and OT GI and DVT prophylaxis We will continue to follow labs/reports and adjust treatment as necessary Thank you for this consultation we will continue to follow patient with you I performed an examination of the patient and discussed their management with the nurse practitioner. I have reviewed the nurse practitioner's note and agree with the documented findings and plan of care. <Linette Oreilly - Last Filed: 05/26/18 14:05> Physical Exam Osteopathic Statement: *. No significant issues noted on an osteopathic structural exam other than those noted in the History and Physical/Consult. Vitals: Vital Signs Temp Pulse Pulse Resp BP BP Pulse Ox 05/26/18 12:15 94 L 05/26/18 12:00 72 98/59 78 L 05/26/18 11:11 80 05/26/18 10:57 82 05/26/18 10:45 92 L 05/26/18 08:00 98.2 F 85 129/62 86 L 05/26/18 07:48 80 05/26/18 07:37 82 05/26/18 04:00 98 F 84 20 161/77 93 L 05/26/18 01:03 72 18 05/25/18 23:28 99 F 84 18 161/74 91 L 05/25/18 22:46 72 20 165/78 95 05/25/18 22:12 98.2 F 72 20 177/77 91 L 05/25/18 20:25 72 20 195/83 90 L 05/25/18 19:48 70 05/25/18 19:34 68 05/25/18 19:00 98.0 F 72 24 146/59 90 L 05/25/18 17:14 72 16 155/76 95 Intake and Output 05/25/18 05/26/18 05/26/18 22:59 06:59 14:59 Intake Total 100 480 Output Total 910 750 Balance -910 -650 480 Intake: Intake, IV Titration 100 Amount Sodium Chloride 0.9% 1, 100 000 ml @ 20 mls/hr IV . Q24H [facility] Rx#:[id number] Oral 480 Output: Urine 910 750 Uretheral (Hernandez) 600 Other: Weight 96.6 kg 96.6 kg Results - Laboratory Findings CBC and BMP: 05/26/18 06:54 05/26/18 06:54 PT/INR, D-dimer PT 12.3 sec (9.0-12.0) H 05/25/18 19:10 INR 1.3 (<1.2) H 05/25/18 19:10 Abnormal lab findings: Abnormal Labs 05/25/18 05/25/18 05/25/18 19:10 19:10 19:10 RBC PT 12.3 H INR 1.3 H Carbon Dioxide 34 H BUN 28 H Creatinine 1.25 H Calcium Total Bilirubin 1.4 H Total Creatine Kinase <20 L Total Protein 5.7 L Albumin 2.9 L Urine Appearance Ur Leukocyte Esterase Urine WBC Urine WBC Clumps Urine Bacteria Hyaline Casts Urine Mucus 05/25/18 05/26/18 05/26/18 20:18 06:54 06:54 RBC 3.75 L PT INR Carbon Dioxide 32 H BUN 24 H Creatinine 1.06 H Calcium 8.1 L Total Bilirubin Total Creatine Kinase Total Protein 4.9 L Albumin 2.4 L Urine Appearance Cloudy H Ur Leukocyte Esterase Large H Urine WBC 23 H Urine WBC Clumps Occasional H Urine Bacteria Occasional H Hyaline Casts 3 H Urine Mucus Rare H Assessment and Plan Assessment: Patient seen and examined. Adjust ABX to cover UTI. Will order CT chest without contrast. CXR reviewed, likely pulmonary vascular congestion, doubt pneumonia (no fever, WBC count, SIRS criteria), but again, will evaluate with CT chest. Continue Duonebs and Pulmicort. Diuresis. I and O. Daily weight. Urinary retention and hernandez catheterization. Cardiology recommendations. ~Linette Oreilly DO
--- NOTE | 2018-05-26 10:46 | P.HPIM ---
History of Present Illness H&P Date: 05/26/18 Chief Complaint: Increased peripheral edema, cellulitis, CHF, urinary retention This is a 82-year-old female who presented to the emergency room with implant of increased peripheral edema and urinary retention. Patient has been currently residing at [facility] for physical therapy post hospitalization 1 month ago for CHF and pacemaker placement. Patient has a known past medical history of paroxysmal atrial fibrillation which she takes eliquis, asthma, heart failure, COPD, hypertension, thyroid disorder and permanent pacemaker and AICD placement in April 2018. Chest x-ray completed emergency room showing pulmonary interstitial fibrotic changes. There is some left upper lobe pneumonia that is new compared to last exam. There are fibrotic changes at the lung apices. There is no seen pleural fluid to suggest heart failure. Heart is not enlarged. EKG completed showing normal sinus rhythm. Urinary analysis completed showing large amount of leukocyte Estrace. Urine culture has been ordered. Right foot is erythema and tender to touch. Patient started vancomycin for possible cellulitis. Patient started on IV Bumex 1 mg twice a day. Cardiology services consulted. Patient sees Dr. Oreilly outpatient pulmonary services. Dr. Oreilly consulted. Patient having issues with urinary retention over the past week. Saucedo catheter placed and urology consulted. Patient denies chest pain. Patient does state she is having some shortness of breath with activity. Patient denies nausea vomiting or diarrhea. Denies any urinary burning or frequency. Review of Systems Please refer to HPI otherwise unremarkable Past Medical History Past Medical History: Atrial Fibrillation, Asthma, Heart Failure, COPD, Hypertension, Thyroid Disorder History of Any Multi-Drug Resistant Organisms: None Reported Past Surgical History: AICD, Hysterectomy, Pacemaker, Tonsillectomy Additional Past Surgical History / Comment(s): bladder suspension, ectopic, thyroid biopsy, cataract, glaucoma sx AICD/Pacer implant done in Apr Type of Cardiac Device: Permanent Pacemaker, AICD Device Placement Date:: Apr 2018 Past Psychological History: No Psychological Hx Reported Smoking Status: Former smoker Past Alcohol Use History: None Reported Past Drug Use History: None Reported Medications and Allergies Home Medications Medication Instructions Recorded Confirmed Type Ascorbic Acid [Vitamin C] 500 mg PO DAILY 04/27/18 05/25/18 History Calcium Carbonate [Tums] 500 - 1,000 mg PO TID PRN 04/27/18 05/25/18 History Carboxymethylcellulose Sodium 1 - 2 drop BOTH EYES QID PRN 04/27/18 05/25/18 History [Refresh Tears] Cholecalciferol (Vitamin D3) 2,000 unit PO DAILY 04/27/18 05/25/18 History [Vitamin D3] Claritin 12 Hour Reditabs 1 tab PO Q12H PRN 04/27/18 05/25/18 History Fluticasone/Vilanterol [Breo 1 puff INHALATION RT-DAILY 04/27/18 05/25/18 History Ellipta 200-25 Mcg INH] Ipratropium/Albuterol Sulfate 1 puff INHALATION RT-QID PRN 04/27/18 05/25/18 History [Combivent Respimat Inhaler] Latanoprost [Xalatan 0.005%] 1 drop RIGHT EYE HS 04/27/18 05/25/18 History Montelukast [Singulair] 10 mg PO HS 04/27/18 05/25/18 History Ranitidine HCl [Zantac] 150 mg PO BID PRN 04/27/18 05/25/18 History Apixaban [Eliquis] 2.5 mg PO BID tablet 05/07/18 05/25/18 Rx Bumetanide [BUMEX] 1 mg PO BID@0900,1600 tab 05/07/18 05/25/18 Rx Dronedarone [Multaq] 400 mg PO AC-BID tab 05/07/18 05/25/18 Rx Gabapentin [Neurontin] 100 mg PO BID cap 05/07/18 05/25/18 Rx Metoprolol Tartrate [Lopressor] 100 mg PO TID tab 05/07/18 05/25/18 Rx Verapamil [Isoptin] 40 mg PO TID tab 05/07/18 05/25/18 Rx HYDROcodone/APAP 5-325MG [[place] 1 tab PO Q4HR PRN 05/25/18 05/25/18 History 5-325] Allergies Allergy/AdvReac Type Severity Reaction Status Date / Time amlodipine Allergy Unknown Verified 05/25/18 17:28 benazepril [From Lotrel] Allergy Unknown Verified 05/25/18 17:28 cephalexin [From Keflex] Allergy Anaphylaxis Verified 05/25/18 17:28 Cephalosporins Allergy Anaphylaxis Verified 05/25/18 17:28 codeine Allergy Unknown Verified 05/25/18 17:28 gabapentin Allergy Swelling Verified 05/25/18 17:28 Iodinated Contrast- Oral and Allergy Anaphylaxis Verified 05/25/18 17:28 IV Dye nebivolol [From Bystolic] Allergy Unknown Verified 05/25/18 17:28 olmesartan [From Benicar] Allergy Unknown Verified 05/25/18 17:28 Penicillins Allergy Anaphylaxis Verified 05/25/18 17:28 Sulfa (Sulfonamide Allergy Anaphylaxis Verified 05/25/18 17:28 Antibiotics) apixaban [From Eliquis] AdvReac BONE PAIN Verified 05/25/18 17:28 clonidine AdvReac BLURRED Verified 05/25/18 17:28 VISION, DIZZY, SCRATCHY THROAT furosemide [From Lasix] AdvReac Nausea & Verified 05/25/18 17:28 Vomiting & Diarrhea hydralazine AdvReac CHILLS, Verified 05/25/18 17:28 SHAKING, LIGHT HEADED, FACE FLUSHED isosorbide [From Imdur] AdvReac Rapid Verified 05/25/18 17:28 Heart Rate labetalol AdvReac Dyspnea Verified 05/25/18 17:28 lisinopril AdvReac Nausea & Verified 05/25/18 17:28 Vomiting & Diarrhea/COUGH PAPER MEDICAL TAPE Allergy Unknown Uncoded 05/25/18 17:20 Physical Exam Vitals: Vital Signs Temp Pulse Pulse Resp BP BP Pulse Ox 05/26/18 07:48 80 05/26/18 07:37 82 05/26/18 04:00 98 F 84 20 161/77 93 L 05/26/18 01:03 72 18 05/25/18 23:28 99 F 84 18 161/74 91 L 05/25/18 22:46 72 20 165/78 95 05/25/18 22:12 98.2 F 72 20 177/77 91 L 05/25/18 20:25 72 20 195/83 90 L 05/25/18 19:48 70 05/25/18 19:34 68 05/25/18 19:00 98.0 F 72 24 146/59 90 L 05/25/18 17:14 72 16 155/76 95 Intake and Output 05/25/18 05/26/18 05/26/18 22:59 06:59 14:59 Intake Total 100 Output Total 910 750 Balance -910 -650 Intake: Intake, IV Titration 100 Amount Sodium Chloride 0.9% 1, 100 000 ml @ 20 mls/hr IV . Q24H [facility] Rx#:[id number] Output: Urine 910 750 Uretheral (Saucedo) 600 Other: Weight 96.6 kg 96.6 kg Head normocephalic Neck supple Lungs diminished with expiratory wheezing Heart regular rate and rhythm S1-S2, no rub or gallop Abdomen is soft nontender nondistended positive bowel sounds no hepatosplenomegaly Extremities +3 edema noted. Right foot erythema more so than left foot. Neuro alert and orientated to 3 Results CBC & Chem 7: 05/26/18 06:54 05/26/18 06:54 Labs: Abnormal Lab Results - Last 24 Hours (Table) 05/25/18 05/25/18 05/25/18 Range/Units 19:10 19:10 19:10 RBC (3.80-5.40) m/uL PT 12.3 H (9.0-12.0) sec INR 1.3 H (<1.2) Carbon Dioxide 34 H (22-30) mmol/L BUN 28 H (7-17) mg/dL Creatinine 1.25 H (0.52-1.04) mg/dL Calcium (8.4-10.2) mg/dL Total Bilirubin 1.4 H (0.2-1.3) mg/dL Total Creatine Kinase <20 L (30-135) U/L Total Protein 5.7 L (6.3-8.2) g/dL Albumin 2.9 L (3.5-5.0) g/dL Urine Appearance (Clear) Ur Leukocyte Esterase (Negative) Urine WBC (0-5) /hpf Urine WBC Clumps (None) /hpf Urine Bacteria (None) /hpf Hyaline Casts (0-2) /lpf Urine Mucus (None) /hpf 05/25/18 05/26/18 05/26/18 Range/Units 20:18 06:54 06:54 RBC 3.75 L (3.80-5.40) m/uL PT (9.0-12.0) sec INR (<1.2) Carbon Dioxide 32 H (22-30) mmol/L BUN 24 H (7-17) mg/dL Creatinine 1.06 H (0.52-1.04) mg/dL Calcium 8.1 L (8.4-10.2) mg/dL Total Bilirubin (0.2-1.3) mg/dL Total Creatine Kinase (30-135) U/L Total Protein 4.9 L (6.3-8.2) g/dL Albumin 2.4 L (3.5-5.0) g/dL Urine Appearance Cloudy H (Clear) Ur Leukocyte Esterase Large H (Negative) Urine WBC 23 H (0-5) /hpf Urine WBC Clumps Occasional H (None) /hpf Urine Bacteria Occasional H (None) /hpf Hyaline Casts 3 H (0-2) /lpf Urine Mucus Rare H (None) /hpf Thrombosis Risk Factor Assmnt - Choose All That Apply Each Factor Represents 1 point: Heart failure (<1month), Swollen legs (current) Other Risk Factors: Yes Each Risk Factor Represents 3 Points: Age 75 years or older Thrombosis Risk Factor Assessment Total Risk Factor Score: 5 Thrombosis Risk Factor Assessment Level: High Risk Assessment and Plan Assessment: 1. Acute on chronic diastolic congestive heart failure. BNP 4280. Patient started on IV Bumex twice a day. Cardiology services consulted. 2-D echo completed previously mentioned 2. Urinary retention. Saucedo catheter placed and urology consulted 3. Increased peripheral edema. Patient started on Bumex IV twice a day 4. Cellulitis of the right foot. Patient started on vancomycin for IV antibiotic. Dr. Bangura for infectious disease consulted. Blood culture has been ordered. 5. Urinary tract infection. Urinary analysis showing large amount of leukocyte Estrace. Patient currently on vancomycin. Patient has multiple drug ALLERGIES. Infectious disease consulted. Urine culture has been ordered 6. Possible pneumonia. Chest x-ray completed showing pulmonary interstitial fibrotic changes. There is some left upper lobe pneumonia that is new compared to last exam. There are fibrotic changes at the lung apices. I see no pleural fluid in to suggest heart failure. Heart is not enlarged. Patient currently on vancomycin. Pulmonary service is consulted. Infectious disease consulted. Sputum sample has been ordered 7. History of paroxysmal atrial fibrillation. Patient currently on eliquis for anticoagulation. Cardiology services consult. Patient scheduled for ablation in June. EKG completed in emergency room showing normal sinus rhythm normal EKG. 8. History of COPD. Continue home medication. Pulmonary services following 9. Recent pacemaker implantation. 10. Essential hypertension 11. Acute kidney injury. Initial creatinine 1.25. Repeat 1.06. We'll continue to monitor closely 12. Chronic back pain. Patient states she takes Neurontin 300 mg twice a day but has only been on 100 mg. Neurontin has been increased to 300 twice a day. [place] when necessary for pain DVT prophylaxis Eliquis and GI prophylaxis Protonix Time with Patient: Greater than 30 (Greater than 60% of the total time spent in counseling and coordination of care. I performed an examination of the patient and discussed their management with the Nurse Practitioner. I have reviewed the Nurse Practitioner's notes and agree with the documented findings and plan of care)
[2018-05-26] MEDS ORDERED: VANCOMYCIN 1,750 MG in SODIUM CHLORIDE 0.9% 500 ML IVPB SCH (13:00)
[2018-05-26] MEDS ORDERED: LEVOFLOXACIN 250MG-D5W PMX 250 MG in DEXTROSE/WATER 1 50ML.BAG IVPB SCH (15:00)
--- NOTE | 2018-05-26 15:05 | CT ---
EXAMINATION TYPE: CT chest wo con DATE OF EXAM: 05/26/2018 COMPARISON: CTA chest September 21, 2012 HISTORY: Trouble breathing, fluid on legs with swelling. CT DLP: 660 mGycm. Automated Exposure Control for Dose Reduction was Utilized. TECHNIQUE: CT scan of the thorax is performed without IV contrast. FINDINGS: LUNGS: Background fairly advanced emphysematous change is present most prominent in the lung apices. There is mild to moderate biapical pleural/parenchymal scarring. There is new irregular consolidation favoring scarring or atelectasis at superior aspect left lower lobe axial image 17. New scarlike [place] right lower lobe measuring 14 x 7 mm axial image 34 coronal image 70 is present. No pleural effu nerissa or pneumothorax is seen bilaterally. MEDIASTINUM: Lack of IV contrast is noted to limit evaluation for mediastinal and especially hilar ad enopathy. There are no definitive greater than 1 cm hilar or mediastinal lymph nodes. Prominent but subcentimeter prevascular lymph nodes are redemonstrated. No cardiomegaly or pericardial effusion is seen. A dual lead pacemaker is now identified. There is coronary artery calcification and/or stents felt present. OTHER: Small splenule in the splenic hilum axial image 55 anteriorly is redemonstrated. Lobulation to visualized portion of both kidneys with cortical thinning is noted. There is moderate calcified plaq ue of aorta. There is mild multilevel spurring in the thoracic spine. Fairly advanced Degenerative ch tatianna in both shoulders at glenohumeral joint is present. IMPRESSION: Advanced underlying emphysematous change without suspicious acute pulmonary process. Livia ot exclude new spiculated nodule right lower lobe. Advise PET CT follow-up. No cardiomegaly or pleura l effusions noted.
[2018-05-26] MEDS ORDERED: DEXTROSE 5% IN WATER 100 ML with AMIODARONE 150 MG IV ONE (16:09)
[2018-05-26] MEDS ORDERED: AMIODARONE 450 MG in DEXTROSE 5% IN WATER 250 ML IV SCH ×2 (16:15)
[2018-05-26] MEDS: DIGOXIN 125 MCG TAB PO SCH (18:13)
[2018-05-26] MEDS: BUDESONIDE 0.5 MG/2 ML NEBU INHALATION SCH (19:11)
[2018-05-26] MEDS: MONTELUKAST 10 MG TAB PO SCH (20:46)
[2018-05-26] MEDS: GABAPENTIN 300 MG CAP PO SCH (20:46)
--- NOTE | 2018-05-26 21:23 | P.GSCN ---
History of Present Illness Consult date: 05/26/18 Reason for Consult: Urinary retention History of present illness: The patient is an 82-year-old female admitted on 05/25/2018 as a transfer from [facility] for evaluation of increasing shortness of breath, increasing pedal edema and urinary retention. The patient had been treated at this hospital in 04/2018 due to congestive heart failure related to paroxysmal atrial fibrillation. A biventricular pacemaker was placed on 04/27. A urine culture on 04/27 grew 10-49,000 colonies of Escherichia coli and 10-49,000 colonies of perineal truman and the patient was suspected to have a urinary tract infection. She was treated with clindamycin. She was discharged to the [facility] on 05/08 for rehabilitation due to generalized weakness. She says for the last 2-3 weeks she had increasing difficulty voiding and that yesterday was in and out cath'd for 888 cc, 444 cc and 550 cc. A Saucedo catheter was eventually inserted when she came to the emergency room and drained 600 cc. Urine culture from 05/25 is growing >100,000 GNR's The patient denies any previous history of urinary retention. She says she usually voids every 3-4 hours during the day and 1-4 times at night depending on her degree of pedal edema. Since admission her dose of Bumex has been increased. Patient denies any gross hematuria. She says her bowels are regular. Review of Systems - Constitutional Denies chills, Denies fever - Cardiovascular Reports edema, Reports shortness of breath - Gastrointestinal Denies abdominal pain, Denies constipation - Genitourinary Genitourinary: Reports as per HPI Past Medical History Past Medical History: Atrial Fibrillation, Asthma, Heart Failure, COPD, Hypertension, Thyroid Disorder History of Any Multi-Drug Resistant Organisms: None Reported Past Surgical History: AICD, Hysterectomy, Pacemaker, Tonsillectomy Additional Past Surgical History / Comment(s): urethral suspension, ectopic, thyroid biopsy, cataract, glaucoma sx AICD/Pacer implant done in Apr Type of Cardiac Device: Permanent Pacemaker, AICD Device Placement Date:: Apr 2018 Past Psychological History: No Psychological Hx Reported Smoking Status: Former smoker Past Alcohol Use History: None Reported Past Drug Use History: None Reported Medications and Allergies Home Medications Medication Instructions Recorded Confirmed Type Ascorbic Acid [Vitamin C] 500 mg PO DAILY 04/27/18 05/25/18 History Calcium Carbonate [Tums] 500 - 1,000 mg PO TID PRN 04/27/18 05/25/18 History Carboxymethylcellulose Sodium 1 - 2 drop BOTH EYES QID PRN 04/27/18 05/25/18 History [Refresh Tears] Cholecalciferol (Vitamin D3) 2,000 unit PO DAILY 04/27/18 05/25/18 History [Vitamin D3] Claritin 12 Hour Reditabs 1 tab PO Q12H PRN 04/27/18 05/25/18 History Fluticasone/Vilanterol [Breo 1 puff INHALATION RT-DAILY 04/27/18 05/25/18 History Ellipta 200-25 Mcg INH] Ipratropium/Albuterol Sulfate 1 puff INHALATION RT-QID PRN 04/27/18 05/25/18 History [Combivent Respimat Inhaler] Latanoprost [Xalatan 0.005%] 1 drop RIGHT EYE HS 04/27/18 05/25/18 History Montelukast [Singulair] 10 mg PO HS 04/27/18 05/25/18 History Ranitidine HCl [Zantac] 150 mg PO BID PRN 04/27/18 05/25/18 History Apixaban [Eliquis] 2.5 mg PO BID tablet 05/07/18 05/25/18 Rx Bumetanide [BUMEX] 1 mg PO BID@0900,1600 tab 05/07/18 05/25/18 Rx Dronedarone [Multaq] 400 mg PO AC-BID tab 05/07/18 05/25/18 Rx Gabapentin [Neurontin] 100 mg PO BID cap 05/07/18 05/25/18 Rx Metoprolol Tartrate [Lopressor] 100 mg PO TID tab 05/07/18 05/25/18 Rx Verapamil [Isoptin] 40 mg PO TID tab 05/07/18 05/25/18 Rx HYDROcodone/APAP 5-325MG [[place] 1 tab PO Q4HR PRN 05/25/18 05/25/18 History 5-325] Allergies Allergy/AdvReac Type Severity Reaction Status Date / Time amlodipine Allergy Unknown Verified 05/25/18 17:28 benazepril [From Lotrel] Allergy Unknown Verified 05/25/18 17:28 cephalexin [From Keflex] Allergy Anaphylaxis Verified 05/25/18 17:28 Cephalosporins Allergy Anaphylaxis Verified 05/25/18 17:28 codeine Allergy Unknown Verified 05/25/18 17:28 gabapentin Allergy Swelling Verified 05/25/18 17:28 Iodinated Contrast- Oral and Allergy Anaphylaxis Verified 05/25/18 17:28 IV Dye nebivolol [From Bystolic] Allergy Unknown Verified 05/25/18 17:28 olmesartan [From Benicar] Allergy Unknown Verified 05/25/18 17:28 Penicillins Allergy Anaphylaxis Verified 05/25/18 17:28 Sulfa (Sulfonamide Allergy Anaphylaxis Verified 05/25/18 17:28 Antibiotics) apixaban [From Eliquis] AdvReac BONE PAIN Verified 05/25/18 17:28 clonidine AdvReac BLURRED Verified 05/25/18 17:28 VISION, DIZZY, SCRATCHY THROAT furosemide [From Lasix] AdvReac Nausea & Verified 05/25/18 17:28 Vomiting & Diarrhea hydralazine AdvReac CHILLS, Verified 05/25/18 17:28 SHAKING, LIGHT HEADED, FACE FLUSHED isosorbide [From Imdur] AdvReac Rapid Verified 05/25/18 17:28 Heart Rate labetalol AdvReac Dyspnea Verified 05/25/18 17:28 lisinopril AdvReac Nausea & Verified 05/25/18 17:28 Vomiting & Diarrhea/COUGH PAPER MEDICAL TAPE Allergy Unknown Uncoded 05/25/18 17:20 Surgical - Exam Vital Signs Pulse Resp BP Pulse Ox 72 16 155/76 95 05/25/18 17:14 05/25/18 17:14 05/25/18 17:14 05/25/18 17:14 - General well developed, well nourished, no distress, obese - Respiratory normal respiratory effort - Abdomen Abdomen: soft, non tender, no organomegaly - Genitourinary other (Saucedo catheter is drainig clear urine) Results - Labs 05/26/18 06:54 05/26/18 06:54 Abnormal Lab Results - Last 24 Hours (Table) 05/26/18 05/26/18 Range/Units 06:54 06:54 RBC 3.75 L (3.80-5.40) m/uL Carbon Dioxide 32 H (22-30) mmol/L BUN 24 H (7-17) mg/dL Creatinine 1.06 H (0.52-1.04) mg/dL Calcium 8.1 L (8.4-10.2) mg/dL Total Protein 4.9 L (6.3-8.2) g/dL Albumin 2.4 L (3.5-5.0) g/dL Microbiology - Last 24 Hours (Table) 05/26/18 12:50 Urine Culture - Preliminary Urine,Catheterized Diabetes panel 05/26/18 Range/Units 06:54 Sodium 140 (137-145) mmol/L Potassium 3.7 (3.5-5.1) mmol/L Chloride 103 (98-107) mmol/L Carbon Dioxide 32 H (22-30) mmol/L BUN 24 H (7-17) mg/dL Creatinine 1.06 H (0.52-1.04) mg/dL Glucose 83 (74-99) mg/dL Calcium 8.1 L (8.4-10.2) mg/dL AST 19 (14-36) U/L ALT 34 (9-52) U/L Alkaline Phosphatase 60 (38-126) U/L Total Protein 4.9 L (6.3-8.2) g/dL Albumin 2.4 L (3.5-5.0) g/dL Thyroid panel 05/26/18 Range/Units 06:54 TSH 1.110 (0.465-4.680) mIU/L Calcium panel 05/26/18 Range/Units 06:54 Calcium 8.1 L (8.4-10.2) mg/dL Albumin 2.4 L (3.5-5.0) g/dL Pituitary panel 05/26/18 05/26/18 Range/Units 06:54 06:54 Sodium 140 (137-145) mmol/L Potassium 3.7 (3.5-5.1) mmol/L Chloride 103 (98-107) mmol/L Carbon Dioxide 32 H (22-30) mmol/L BUN 24 H (7-17) mg/dL Creatinine 1.06 H (0.52-1.04) mg/dL Glucose 83 (74-99) mg/dL Calcium 8.1 L (8.4-10.2) mg/dL TSH 1.110 (0.465-4.680) mIU/L Adrenal panel 05/26/18 Range/Units 06:54 Sodium 140 (137-145) mmol/L Potassium 3.7 (3.5-5.1) mmol/L Chloride 103 (98-107) mmol/L Carbon Dioxide 32 H (22-30) mmol/L BUN 24 H (7-17) mg/dL Creatinine 1.06 H (0.52-1.04) mg/dL Glucose 83 (74-99) mg/dL Calcium 8.1 L (8.4-10.2) mg/dL Total Bilirubin 1.3 (0.2-1.3) mg/dL AST 19 (14-36) U/L ALT 34 (9-52) U/L Alkaline Phosphatase 60 (38-126) U/L Total Protein 4.9 L (6.3-8.2) g/dL Albumin 2.4 L (3.5-5.0) g/dL Assessment and Plan (1) Urinary retention Narrative/Plan: The source of the patient's urinary retention is not clear. The patient denied difficulty voiding while she was in the hospital in April and says that she began having more difficulty once she was discharged. It is possible that she had some element of incomplete bladder emptying prior to discharge and that this worsened due to her overall weakness although she says that she is stronger now than she was 3 weeks ago. She has not been on any new medications which should worsen her bladder emptying. She also says her bowels have been moving relatively normal. She may have a urinary tract infection at the present time and has been started on antibiotics. I would suggest her catheter be left in place for 2-3 days prior to a voiding trial. When her catheter is removed she should be monitored closely with the bladder scan unit to ensure that she is voiding adequately. I do not feel that the patient would be able to perform intermittent catheterization and if she remains unable to void or has a significantly elevated postvoid residual then she may benefit from a longer period of catheter drainage prior to another voiding trial. Current Visit: Yes Status: Acute Code(s): R33.9 - RETENTION OF URINE, UNSPECIFIED SNOMED Code(s): 521763840
[2018-05-26] MEDS: SODIUM CHLORIDE 0.9% 1,000 ML IV SCH (21:41)
--- NOTE | 2018-05-26 21:53 | P.CONS ---
History of Present Illness - Reason for Consult Consult date: 05/26/18 - Chief Complaint weakness and congestive heart failure - History of Present Illness Pleasant 82-year-old female is a resident at [facility] in [facility] for rehabilitation. She has a known history of underlying congestive heart failure and cardiac dysrhythmia with atrial fibrillation. Was admitted in April at which point in time she underwent interventions including cardioversion for atrial fibrillation as well as pacemaker insertion by Dr. Landaverde. If she improves plan was for a cardiac ablation, she however is developed extensive weight gain of 16 pounds with progressive shortness of breath and extensive bilateral lower extremity edema. Evidence of recurrent in worsening congestive heart failure and cancer she was admitted to hospital. She was seen by her school based therapist she evidence of significant shortness of breath and great difficulties with urinary retention and consequently her ultrasound was performed revealing evidence of large volume urinary retention because she was admitted to hospital. The catheters placed and she is receiving diuretic therapy with significant improvement of her shortness of breath pulse ox is at the 94% on room air at this time. There is concerned she urinary infection as well as etiology of the urinary obstruction. She's been seen by urology evaluation is in process as to the etiology of the urinary retention. The patient is developed a significant bilateral lower extremity edema with significant erythema especially in the dorsum of the left foot and constantly infectious diseases consultation was requested. Review of Systems HEENT:Denies headache or acute visual change. Denies sinus or mouth discomforts. Denies neck stiffness or pain. Denies significant oral cavity pain. Denies difficulty on swallowing. Lungs: severe shortness of breath is improving, no sticking costume production or hemoptysis. Cardiovascular:She denying chest pain or palpitations at this time. Does have shortness of breath no syncope and does have dyspnea with activity. Gastrointestinal:Denies nausea, vomiting, diarrhea, constipation, hematemesis, melena, hematochezia. No no significant change of bowel habit noticed. Musculoskeletal: denies significant myalgias or arthralgias. No new joint swelling. Denies new back pain. Skin: evidence as per the HPI lower extremities edema instantly erythema to the left foot Neuro: Denies headache or visual change. Denies any new onset weakness or difficulty with ambulation. Denies falls or seizures. Psychiatric:Denies anxiety or depression. Endocrine: Denies significant fatigue, denies significant weight loss or weight gain. Past Medical History Past Medical History: Atrial Fibrillation, Asthma, Heart Failure, COPD, Hypertension, Thyroid Disorder History of Any Multi-Drug Resistant Organisms: None Reported Past Surgical History: AICD, Hysterectomy, Pacemaker, Tonsillectomy Additional Past Surgical History / Comment(s): urethral suspension, ectopic, thyroid biopsy, cataract, glaucoma sx AICD/Pacer implant done in Apr Type of Cardiac Device: Permanent Pacemaker, AICD Device Placement Date:: Apr 2018 Past Psychological History: No Psychological Hx Reported Additional Psychological History / Comment(s): and was living independently. Currently in extended care for rehab. No international travel. 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 Lifelong nonsmoker. No alcohol use. No animals at this time Smoking Status: Former smoker Past Alcohol Use History: None Reported Past Drug Use History: None Reported Medications and Allergies Home Medications and Allergies Comment(s): Current Medications Hydrocodone Bitart/Acetaminophen ([place] 5-325) 1 each PO Q4HR PRN PRN Reason: Moderate Pain Albuterol/Ipratropium (Duoneb 0.5 Mg-3 Mg/3 Ml Soln) 3 ml INHALATION RT-QID PRN PRN Reason: Shortness Of Breath Last Admin: 05/26/18 19:11 Dose: 3 ml Apixaban (Eliquis) 2.5 mg PO BID [facility] Last Admin: 05/26/18 20:46 Dose: 2.5 mg Artificial Tears (Artificial Tear Drops) 2 drops BOTH EYES QID PRN PRN Reason: Dry Eye(s) Ascorbic Acid (Vitamin C) 500 mg PO DAILY [facility] Last Admin: 05/26/18 09:29 Dose: 500 mg Budesonide (Pulmicort) 0.5 mg INHALATION RT-BID [facility] Last Admin: 05/26/18 19:11 Dose: 0.5 mg Bumetanide (Bumex) 1 mg IVP BID [facility] Last Admin: 05/26/18 09:28 Dose: 1 mg Calcium Carbonate/Glycine (Tums) 500 - 1,000 mg PO TID PRN PRN Reason: Heartburn Cholecalciferol (Vitamin D3) 2,000 unit PO DAILY [facility] Last Admin: 05/26/18 09:28 Dose: 2,000 unit Digoxin (Lanoxin) 125 mcg PO DAILY [facility] Last Admin: 05/26/18 18:13 Dose: 125 mcg Dronedarone (Multaq) 400 mg PO AC-BID [facility] Last Admin: 05/26/18 18:15 Dose: 400 mg Famotidine (Pepcid) 20 mg PO BID PRN PRN Reason: Heartburn Gabapentin (Neurontin) 300 mg PO BID [facility] Last Admin: 05/26/18 20:46 Dose: 300 mg Sodium Chloride (Saline 0.9%) 1,000 mls @ 20 mls/hr IV .Q24H [facility] Last Admin: 05/25/18 21:00 Dose: 20 mls/hr Levofloxacin/Dextrose 250 mg/ (IV Solution) 50 mls @ 50 mls/hr IVPB Q24H [facility] Last Admin: 05/26/18 16:29 Dose: 50 mls/hr Latanoprost (Xalatan 0.005%) 1 drops RIGHT EYE [facility] Last Admin: 05/25/18 23:31 Dose: 1 drops Loratadine (Claritin) 10 mg PO Q24H PRN PRN Reason: Allergy Symptoms Metoprolol Tartrate (Lopressor) 100 mg PO TID [facility] Last Admin: 05/26/18 20:46 Dose: 100 mg Montelukast Sodium (Singulair) 10 mg PO HS [facility] Last Admin: 05/26/18 20:46 Dose: 10 mg Naloxone HCl (Narcan) 0.2 mg IV Q2M PRN PRN Reason: Opioid Reversal Pantoprazole Sodium (Protonix) 40 mg PO AC-BRKFST [facility] Verapamil HCl (Isoptin) 40 mg PO TID [facility] Last Admin: 05/26/18 20:46 Dose: 40 mg Home Medications Medication Instructions Recorded Confirmed Type Ascorbic Acid [Vitamin C] 500 mg PO DAILY 04/27/18 05/25/18 History Calcium Carbonate [Tums] 500 - 1,000 mg PO TID PRN 04/27/18 05/25/18 History Carboxymethylcellulose Sodium 1 - 2 drop BOTH EYES QID PRN 04/27/18 05/25/18 History [Refresh Tears] Cholecalciferol (Vitamin D3) 2,000 unit PO DAILY 04/27/18 05/25/18 History [Vitamin D3] Claritin 12 Hour Reditabs 1 tab PO Q12H PRN 04/27/18 05/25/18 History Fluticasone/Vilanterol [Breo 1 puff INHALATION RT-DAILY 04/27/18 05/25/18 History Ellipta 200-25 Mcg INH] Ipratropium/Albuterol Sulfate 1 puff INHALATION RT-QID PRN 04/27/18 05/25/18 History [Combivent Respimat Inhaler] Latanoprost [Xalatan 0.005%] 1 drop RIGHT EYE HS 04/27/18 05/25/18 History Montelukast [Singulair] 10 mg PO HS 04/27/18 05/25/18 History Ranitidine HCl [Zantac] 150 mg PO BID PRN 04/27/18 05/25/18 History Apixaban [Eliquis] 2.5 mg PO BID tablet 05/07/18 05/25/18 Rx Bumetanide [BUMEX] 1 mg PO BID@0900,1600 tab 05/07/18 05/25/18 Rx Dronedarone [Multaq] 400 mg PO AC-BID tab 05/07/18 05/25/18 Rx Gabapentin [Neurontin] 100 mg PO BID cap 05/07/18 05/25/18 Rx Metoprolol Tartrate [Lopressor] 100 mg PO TID tab 05/07/18 05/25/18 Rx Verapamil [Isoptin] 40 mg PO TID tab 05/07/18 05/25/18 Rx HYDROcodone/APAP 5-325MG [[place] 1 tab PO Q4HR PRN 05/25/18 05/25/18 History 5-325] Allergies Allergy/AdvReac Type Severity Reaction Status Date / Time amlodipine Allergy Unknown Verified 05/25/18 17:28 benazepril [From Lotrel] Allergy Unknown Verified 05/25/18 17:28 cephalexin [From Keflex] Allergy Anaphylaxis Verified 05/25/18 17:28 Cephalosporins Allergy Anaphylaxis Verified 05/25/18 17:28 codeine Allergy Unknown Verified 05/25/18 17:28 gabapentin Allergy Swelling Verified 05/25/18 17:28 Iodinated Contrast- Oral and Allergy Anaphylaxis Verified 05/25/18 17:28 IV Dye nebivolol [From Bystolic] Allergy Unknown Verified 05/25/18 17:28 olmesartan [From Benicar] Allergy Unknown Verified 05/25/18 17:28 Penicillins Allergy Anaphylaxis Verified 05/25/18 17:28 Sulfa (Sulfonamide Allergy Anaphylaxis Verified 05/25/18 17:28 Antibiotics) apixaban [From Eliquis] AdvReac BONE PAIN Verified 05/25/18 17:28 clonidine AdvReac BLURRED Verified 05/25/18 17:28 VISION, DIZZY, SCRATCHY THROAT furosemide [From Lasix] AdvReac Nausea & Verified 05/25/18 17:28 Vomiting & Diarrhea hydralazine AdvReac CHILLS, Verified 05/25/18 17:28 SHAKING, LIGHT HEADED, FACE FLUSHED isosorbide [From Imdur] AdvReac Rapid Verified 05/25/18 17:28 Heart Rate labetalol AdvReac Dyspnea Verified 05/25/18 17:28 lisinopril AdvReac Nausea & Verified 05/25/18 17:28 Vomiting & Diarrhea/C[employer] Allergy Unknown Uncoded 05/25/18 17:20 Physical Exam Vitals: Vital Signs Temp Pulse Pulse Resp BP BP Pulse Ox 05/26/18 19:27 84 05/26/18 19:14 82 05/26/18 15:55 124 H 18 05/26/18 15:33 98.8 F 124 H 18 134/82 92 L 05/26/18 12:15 94 L 05/26/18 12:00 72 98/59 78 L 05/26/18 11:11 80 05/26/18 10:57 82 05/26/18 10:45 92 L 05/26/18 08:00 98.2 F 85 129/62 86 L 05/26/18 07:48 80 05/26/18 07:37 82 05/26/18 04:00 98 F 84 20 161/77 93 L 05/26/18 01:03 72 18 05/25/18 23:28 99 F 84 18 161/74 91 L 05/25/18 22:46 72 20 165/78 95 05/25/18 22:12 98.2 F 72 20 177/77 91 L Intake and Output 05/26/18 05/26/18 05/26/18 06:59 14:59 22:59 Intake Total 100 520 240 Output Total 750 Balance -650 520 240 Intake: Intake, IV Titration 100 40 Amount Sodium Chloride 0.9% 1, 100 40 000 ml @ 20 mls/hr IV . Q24H [id number] Rx#:[id number] Oral 480 240 Output: Urine 750 Other: Weight 96.6 kg pleasant 82-year-old woman who apparently is improved much less short of breath HEENT: Anicteric conjunctiva are pink and moist nasal mucosa grossly intact without significant lesions, there is no thrush. Neck: The neck is supple without significant lymphadenopathy or thyromegaly. Lungs: they're symmetrical bilaterally entry, evidence of basilar crackles but no quita bronchial sounds are noted no dullness or egophony Heart: irregular irregular with an audible S4. There is no significant murmur click or rub, PMI was nondisplaced. Abdomen: mildly obese,Positive bowel sounds soft and nontender without palpable masses or organomegaly. There was no guarding or rebound. Extremities: the upper extremity show evidence of some flaccidity to the tissue but no significant open lesions are seen, IV site left arm is tender without erythema The lower extremities show evidence of the extensive bilateral extremities edema that's improving as noted by the deep and extensive linear wrinkles that have developed with diuresis and mild compressionthere are no quita open ulcers at this time. The left foot is quite tender to touch. Neuro: Awake alert oriented to person place and time. There are no acute new gross focal sensory motor deficits. Results CBC & Chem 7: 05/26/18 06:54 05/26/18 06:54 Labs: Abnormal Lab Results - Last 24 Hours (Table) 05/26/18 05/26/18 Range/Units 06:54 06:54 RBC 3.75 L (3.80-5.40) m/uL Carbon Dioxide 32 H (22-30) mmol/L BUN 24 H (7-17) mg/dL Creatinine 1.06 H (0.52-1.04) mg/dL Calcium 8.1 L (8.4-10.2) mg/dL Total Protein 4.9 L (6.3-8.2) g/dL Albumin 2.4 L (3.5-5.0) g/dL Microbiology - Last 24 Hours (Table) 05/25/18 19:10 Blood Culture - Preliminary Blood No Growth after 24 hours 05/26/18 12:50 Urine Culture - Preliminary Urine,Catheterized Laboratory Results WBC 7.4 k/uL (3.8-10.6) 05/26/18 06:54 RBC 3.75 m/uL (3.80-5.40) L 05/26/18 06:54 Hgb 11.7 gm/dL (11.4-16.0) 05/26/18 06:54 Hct 36.4 % (34.0-46.0) 05/26/18 06:54 MCV 97.3 fL (80.0-100.0) 05/26/18 06:54 MCH 31.1 pg (25.0-35.0) 05/26/18 06:54 MCHC 32.0 g/dL (31.0-37.0) 05/26/18 06:54 RDW 15.3 % (11.5-15.5) 05/26/18 06:54 Plt Count 170 k/uL (150-450) 05/26/18 06:54 Neutrophils % 67 % 05/26/18 06:54 Lymphocytes % 21 % 05/26/18 06:54 Monocytes % 5 % 05/26/18 06:54 Eosinophils % 4 % 05/26/18 06:54 Basophils % 0 % 05/26/18 06:54 Neutrophils # 5.0 k/uL (1.3-7.7) 05/26/18 06:54 Lymphocytes # 1.5 k/uL (1.0-4.8) 05/26/18 06:54 Monocytes # 0.4 k/uL (0-1.0) 05/26/18 06:54 Eosinophils # 0.3 k/uL (0-0.7) 05/26/18 06:54 Basophils # 0.0 k/uL (0-0.2) 05/26/18 06:54 PT 12.3 sec (9.0-12.0) H 05/25/18 19:10 INR 1.3 (<1.2) H 05/25/18 19:10 APTT 22.8 sec (22.0-30.0) 05/25/18 19:10 Sodium 140 mmol/L (137-145) 05/26/18 06:54 Potassium 3.7 mmol/L (3.5-5.1) 05/26/18 06:54 Chloride 103 mmol/L (98-107) 05/26/18 06:54 Carbon Dioxide 32 mmol/L (22-30) H 05/26/18 06:54 Anion Gap 5 mmol/L 05/26/18 06:54 BUN 24 mg/dL (7-17) H 05/26/18 06:54 Creatinine 1.06 mg/dL (0.52-1.04) H 05/26/18 06:54 Est GFR (CKD-EPI)AfAm 57 (>60 ml/min/1.73 sqM) 05/26/18 06:54 Est GFR (CKD-EPI)NonAf 50 (>60 ml/min/1.73 sqM) 05/26/18 06:54 Glucose 83 mg/dL (74-99) 05/26/18 06:54 Calcium 8.1 mg/dL (8.4-10.2) L 05/26/18 06:54 Total Bilirubin 1.3 mg/dL (0.2-1.3) 05/26/18 06:54 AST 19 U/L (14-36) 05/26/18 06:54 ALT 34 U/L (9-52) 05/26/18 06:54 Alkaline Phosphatase 60 U/L (38-126) 05/26/18 06:54 Total Creatine Kinase <20 U/L (30-135) L 05/25/18 19:10 CK-MB (CK-2) 0.6 ng/mL (0.0-2.4) 05/25/18 19:10 CK-MB (CK-2) Rel Index 05/25/18 19:10 Troponin I <0.012 ng/mL (0.000-0.034) 05/25/18 19:10 NT-Pro-B Natriuret Pep 4280 pg/mL 05/25/18 19:10 Total Protein 4.9 g/dL (6.3-8.2) L 05/26/18 06:54 Albumin 2.4 g/dL (3.5-5.0) L 05/26/18 06:54 TSH 1.110 mIU/L (0.465-4.680) 05/26/18 06:54 Urine Color Yellow 05/25/18 20:18 Urine Appearance Cloudy (Clear) H 05/25/18 20:18 Urine pH 5.5 (5.0-8.0) 05/25/18 20:18 Ur Specific [place] 1.011 (1.001-1.035) 05/25/18 20:18 Urine Protein Negative (Negative) 05/25/18 20:18 Urine Glucose (UA) Negative (Negative) 05/25/18 20:18 Urine Ketones Negative (Negative) 05/25/18 20:18 Urine Blood Negative (Negative) 05/25/18 20:18 Urine Nitrite Negative (Negative) 05/25/18 20:18 Urine Bilirubin Negative (Negative) 05/25/18 20:18 Urine Urobilinogen <2.0 mg/dL (<2.0) 05/25/18 20:18 Ur Leukocyte Esterase Large (Negative) H 05/25/18 20:18 Urine RBC 1 /hpf (0-5) 05/25/18 20:18 Urine WBC 23 /hpf (0-5) H 05/25/18 20:18 Urine WBC Clumps Occasional /hpf (None) H 05/25/18 20:18 Ur Squamous Epith Cells <1 /hpf (0-4) 05/25/18 20:18 Urine Bacteria Occasional /hpf (None) H 05/25/18 20:18 Hyaline Casts 3 /lpf (0-2) H 05/25/18 20:18 Urine Mucus Rare /hpf (None) H 05/25/18 20:18 Microbiology 05/25/18 19:10 Blood Blood Culture - Preliminary No Growth after 24 hours 05/26/18 12:50 Urine,Catheterized Urine Culture - Preliminary Assessment and Plan (1) Congestive heart failure Current Visit: Yes Status: Acute Code(s): I50.9 - HEART FAILURE, UNSPECIFIED SNOMED Code(s): 09600957 (2) Bilateral lower extremity edema Narrative/Plan: Pleasant 82-year-old female that presents to the emergency center after being evaluated by her school based therapist. She had evidence of extensive volume overload with lower extremity edema and cellulitis. Also evidence of worsening congestive heart failure with atrial fibrillation that was not well controlled. Also concerns to urinary retention. She consequently had a Saucedo catheter placed and is now had excellent diuresis. There is evidence of some improvement of the lower extremity edema but continues to have a significant swelling and erythema to the left foot. Concerns for cellulitis at this area. Patient also had the urinary retention and likely has urinary infection current culture showing evidence of the gram-negative bacilli. Patient has been given a dose of levofloxacin however she is also on multaq in there can be a significant interaction and constantly will discontinue the Levaquin. For now we'll utilize daptomycin with Azactam for the cellulitis and the urinary tract infection. We'll continue current supportive care and monitor her edema. If she improves we'll do well to have compression stockings available from awakening to going to bed which likely will help the edema. She likely will need a 2 layer stocking so she can tolerate them better. Current Visit: Yes Status: Acute Code(s): R60.0 - LOCALIZED EDEMA SNOMED Code(s): 756598703 (3) Cellulitis of left foot Current Visit: Yes Status: Acute Code(s): L03.116 - CELLULITIS OF LEFT LOWER LIMB SNOMED Code(s): 056019277
[2018-05-26] MEDS: LATANOPROST 0.005% OPHTH DROPS 2.5 ML BTL RIGHT EYE SCH (21:59)
[2018-05-26] MEDS: DAPTOmycin 500 MG in SODIUM CHLORIDE 0.9% 50 ML IVPB SCH (23:12)
[2018-05-26] MEDS: AZTREONAM 1 GM in SODIUM CHLORIDE 0.9% 50 ML IVPB SCH (23:47)
[2018-05-27 06:03] LABS: Basophils % (A) 0 %; Eosinophils # (A) 0.3 k/uL (0-0.7); Eosinophils % (A) 4 %; HCT 36.2 % (34.0-46.0); HGB 11.4 gm/dL (11.4-16.0); Lymphocytes # (A) 1.8 k/uL (1.0-4.8); Lymphocytes % (A) 24 %; MCH 31.1 pg (25.0-35.0); MCHC 31.6 g/dL (31.0-37.0); MCV 98.6 fL (80.0-100.0); Macrocytosis Slight; Mean Platelet Volume 7.6; Monocytes # (A) 0.4 k/uL (0-1.0); Monocytes % (A) 5 %; Neutrophils # (A) 4.9 k/uL (1.3-7.7); Neutrophils % (A) 65 %; Platelet Count 176 k/uL (150-450); RBC 3.68 m/uL (3.80-5.40); WBC 7.5 k/uL (3.8-10.6)
[2018-05-27 06:21] LABS: Albumin 2.3 g/dL (3.5-5.0); Calcium 8.1 mg/dL (8.4-10.2); Potassium 3.2 mmol/L (3.5-5.1); Total Bilirubin 1.2 mg/dL (0.2-1.3); Total Protein 4.8 g/dL (6.3-8.2)
[2018-05-27] MEDS: DRONEDARONE 400 MG TAB PO SCH (06:23)
[2018-05-27] MEDS: PANTOPRAZOLE 40 MG TABLET PO SCH (06:23)
[2018-05-27] MEDS: IPRATROPIUM-ALBUTEROL 3 ML NEB INHALATION PRN ×3 (06:58→19:23)
[2018-05-27] MEDS: BUDESONIDE 0.5 MG/2 ML NEBU INHALATION SCH ×2 (06:58→19:24)
[2018-05-27] MEDS: METOPROLOL TARTRATE 50 MG TAB PO SCH ×2 (07:59→19:49)
[2018-05-27] MEDS: APIXABAN 2.5 MG TABLET PO SCH ×2 (07:59→19:48)
[2018-05-27] MEDS: CHOLECALCIFEROL 1,000 UNIT TAB PO SCH (07:59)
[2018-05-27] MEDS: VERAPAMIL 40 MG TAB PO SCH (07:59)
[2018-05-27] MEDS: GABAPENTIN 300 MG CAP PO SCH ×2 (07:59→19:49)
[2018-05-27] MEDS: ASCORBIC ACID 500 MG TAB PO SCH (08:00)
[2018-05-27] MEDS: AZTREONAM 1 GM in SODIUM CHLORIDE 0.9% 50 ML IVPB SCH ×3 (08:00→23:43)
[2018-05-27] MEDS: DIGOXIN 125 MCG TAB PO SCH (08:00)
[2018-05-27] MEDS ORDERED: Potassium Replacement Protocol 1 EACH MISC MISCELLANE PRN (08:09)
--- NOTE | 2018-05-27 10:02 | P.PN ---
<Albertina Pérez E - Last Filed: 05/27/18 09:55> Subjective Progress Note Date: 05/27/18 History of present illness: This is an 82-year-old female patient well-known to our services being seen examined and evaluated today on consultation. The patient came in to the emergency room from [facility] with complaints of shortness of breath that had been getting worse over the past few days as well as increase in her lower extremity edema. This patient was previously hospitalized from 04/28/2018 and discharged on 05/08/18, with CHF and A. fib, the patient did undergo a cardiac catheterization as well as a cardioversion during that addmission but the patient did go back into A. fib. The patient did undergo a pacemaker insertion as well during her last admission. She is being seen in the outpatient setting and is supposed to be scheduled with Dr. Espana for a cardiac ablation in a few weeks. Apparently at the [facility], the patient was experiencing shortness of breath, increased edema in the bilateral lower extremities and had some urinary retention for which she was straight cathed a few times for, as well as a 16 pound weight gain in the last few days. Upon evaluation in the emergency room the patient was also noted to have erythema and warmth over the dorsal aspect of each foot and miranda. She did have some superficial wounds/cellulitis to the dorsal aspect of each foot. Noted to have +3 lateral lower extremity edema. Chest x-ray was obtained and did show pulmonary interstitial fibrotic changes with some left upper lobe pneumonia that was new compared to last exam as well as fibrotic changes in the lung apices. She was also noted to be hypoxic and did require 2 L of supplemental oxygen via nasal cannula. Saucedo catheter was inserted for urinary retention and she was admitted for further evaluation and workup. Upon examination today the patient is resting up in bed on 2 L of supplemental oxygen via nasal cannula. She does have bilateral Abran wraps on her legs. She does have some shortness of breath with exertion, does complain of some intermittent congested cough no sputum production. She has had good output from her Saucedo catheter. Urinalysis is positive for UTI, culture pending. Cardiology is on consult for seeing the patient. Daughter is at bedside and updated on plan of care. Interval history: 05/27/2018patient is being seen examined and evaluated today on rounds. She is resting up in bed on 2 L of supplemental oxygen. The patient states she has had some increase in her shortness of breath overnight. She also was noted to have a rhythm change and went into A. fib with RVR overnight. The patient is scheduled to go for her ablation today with Dr. Espana. Her potassium was noted to be 3.2 and is being replaced. Infectious disease did see her yesterday and adjusted her antibiotics. She was also seen by urology and have recommended the patient maintain the Saucedo for couple more days. She has had been having good output and diuresing well with the Bumex. Afebrile no further complaints Objective - Vital Signs Vital signs: Vital Signs Temp 98.7 F 05/27/18 07:57 Pulse 120 H 05/27/18 08:00 Resp 20 05/27/18 08:00 BP 105/69 05/27/18 07:57 Pulse Ox 94 L 05/27/18 07:57 Intake & Output 05/26/18 05/27/18 05/27/18 18:59 06:59 18:59 Intake Total 760 120 360 Output Total 2000 Balance 760 -1880 360 Intake: Intake, IV Titration 40 Amount Sodium Chloride 0.9% 1, 40 000 ml @ 20 mls/hr IV . Q24H [facility] Rx#:[id number] Oral 720 120 360 Output: Urine 2000 Other: Voiding Method Indwelling Catheter Indwelling Catheter # Voids 1 # Bowel Movements 1 - Exam GENERAL EXAM: Alert, comfortable in no apparent distress. HEAD: Normocephalic. EYES: Normal reaction of pupils, equal size. NOSE: Clear with pink turbinates. THROAT: No erythema or exudates. NECK: No masses, no JVD. CHEST: No chest wall deformity. LUNGS: Lung sounds noted to be diminished with a faint expiratory wheeze. Bases diminished CVS: S1 and S2 normal with no audible mumurs, regular rhythm. ABDOMEN: No hepatosplenomegaly, normal bowel sounds, no guarding or rigidity. EXTREMITIES: +2-3 edema noted, Patient noted to have some bilateral erythema and warmth as well as signs of cellulitis CENTRAL NERVOUS SYSTEM: No focal deficits, tone is normal in all 4 extremities. - Labs CBC & Chem 7: 05/27/18 05:34 05/27/18 05:34 Labs: Abnormal Lab Results - Last 24 Hours (Table) 05/27/18 05/27/18 Range/Units 05:34 05:34 RBC 3.68 L (3.80-5.40) m/uL Potassium 3.2 L (3.5-5.1) mmol/L Carbon Dioxide 32 H (22-30) mmol/L BUN 22 H (7-17) mg/dL Calcium 8.1 L (8.4-10.2) mg/dL Total Protein 4.8 L (6.3-8.2) g/dL Albumin 2.3 L (3.5-5.0) g/dL Microbiology - Last 24 Hours (Table) 05/25/18 19:10 Blood Culture - Preliminary Blood No Growth after 24 hours 05/26/18 12:50 Urine Culture - Preliminary Urine,Catheterized Assessment and Plan Assessment: Assessment Acute hypoxic respiratory failure Acute exacerbation of CHF Possible left upper lobe pneumonia Acute exacerbation of COPD Chronic moderate to severe persistent asthma not acutely exacerbated Lower extremity edema Bilateral lower extremity cellulitis Present on admission UTI Urinary retention Moderate protein calorie malnutrition Obesity History of Paroxysmal atrial fibrillation A. fib with RVR Plan Medications reviewed and will be continued as ordered Patient scheduled for cardiac ablation this afternoon Cultures pending Bumex for diuresis Antibiotics O2 to maintain saturation greater than or equal to 90% Duo nebs and Pulmicort Singulair Monitor I's and O's Daily weights Cardiology recommendations Incentive spirometry and pulmonary hygiene Increase activity as tolerated PT and OT GI and DVT prophylaxis We will continue to follow labs/reports and adjust treatment as necessary I performed an examination of the patient and discussed their management with the nurse practitioner. I have reviewed the nurse practitioner's note and agree with the documented findings and plan of care. <Linette Oreilly A - Last Filed: 05/27/18 14:52> Objective - Vital Signs Vital signs: Vital Signs Temp 97.7 F 05/27/18 12:09 Pulse 91 05/27/18 12:15 Resp 20 05/27/18 12:15 BP 122/61 05/27/18 12:15 Pulse Ox 97 05/27/18 12:15 Intake & Output 05/26/18 05/27/18 05/27/18 18:59 06:59 18:59 Intake Total 760 120 650 Output Total 2000 Balance 760 -1880 650 Weight 96.6 kg Intake: IV 50 Intake, IV Titration 40 Amount Sodium Chloride 0.9% 1, 40 000 ml @ 20 mls/hr IV . Q24H [facility] Rx#:[id number] Oral 720 120 600 Output: Urine 2000 Other: Voiding Method Indwelling Catheter Indwelling Catheter # Voids 1 # Bowel Movements 1 - Labs CBC & Chem 7: 05/27/18 05:34 05/27/18 05:34 Labs: Abnormal Lab Results - Last 24 Hours (Table) 05/27/18 05/27/18 Range/Units 05:34 05:34 RBC 3.68 L (3.80-5.40) m/uL Potassium 3.2 L (3.5-5.1) mmol/L Carbon Dioxide 32 H (22-30) mmol/L BUN 22 H (7-17) mg/dL Calcium 8.1 L (8.4-10.2) mg/dL Total Protein 4.8 L (6.3-8.2) g/dL Albumin 2.3 L (3.5-5.0) g/dL Microbiology - Last 24 Hours (Table) 05/25/18 19:10 Blood Culture - Preliminary Blood No Growth after 24 hours 05/26/18 12:50 Urine Culture - Preliminary Urine,Catheterized Assessment and Plan Assessment: Patient seen and examined. Patient underwent cardiac ablation today. Continue diuresis. Continue antibiotics per ID. Outpatient follow-up for changes on computed tomography scan, will need outpatient PET/CT. Continue bronchodilators and Pulmicort. ~Linette Oreilly DO
[2018-05-27] MEDS: POTASSIUM CHLORIDE ER 20 MEQ TAB.ER PO SCH ×2 (10:22→15:39)
[2018-05-27] MEDS ORDERED: IV FLUID CONTINUATION 750 ML IV ONE (10:49)
[2018-05-27] MEDS ORDERED: LIDOCAINE 1% INJ 10MG/ML (20 ML MDV) ONE (11:11)
[2018-05-27] MEDS ORDERED: LIDOCAINE 2% INJ 20 MG/ML SQ ONE (11:17)
[2018-05-27] MEDS ORDERED: ATROPINE SULFATE 0.1 MG/ML 10ML SYRINGE IV ONE (11:28)
--- NOTE | 2018-05-27 11:40 | P.PCN ---
Preoperative Diagnosis: Procedure: Device interrogation with reprogramming prior to the procedure Cardioversion for atrial fibrillation AV Node Ablation/modification. Device interrogation with reprogramming postprocedure Patient was brought to the EP lab in a fasting state. Written, informed consent was obtained prior to the procedure. Access was obtained, sheath placed in right femoral vein. 1. Preprocedure device interrogation and reprogramming Device interrogation with reprogramming performed. Rate responsiveness was turned off and the pacing rate was reprogrammed to a backup mode prior to ablation. Tachycardia detections turned off. Lead impedance is documented, sensing and pacing thresholds performed prior to the procedure Backup pacing, VVI 40 bpm 2. Electrical cardioversion A 200 J biphasic shock was used to cardiovert the patient to sinus rhythm Thereafter mapping of the AV node was performed, His bundle identified and RF ablation performed Patient was on therapeutic anticoagulation 3. AV node ablation A Mapping/Ablation catheter was placed and right-sided AV node radiofrequency ablation/modification was performed. Complete heart block was achieved with occasional junctional escape rhythm above 40 bpm 4. Device programming postprocedure Post ablation, device reprogramming was performed. Base Pacing rate was programmed to 90 bpm. Patient's device was reprogrammed and the interrogated. RF mode turned on Vascular sheaths were removed at the end of the procedure, hemostasis was assured, the patient was then transferred to recovery room/telemetry in stable condition. Conclusions: Successful ablation of the AV node. Plan: Pacing at 90 bpm for 2 weeks. Telemetry monitoring for 24-48 hours. Continue anticoagulation. Patient tolerated the procedure well without any acute complications Disposition: floor
--- NOTE | 2018-05-27 11:51 | P.PCN ---
Preoperative Diagnosis: Patient underwent EP procedure under conscious sedation/moderate sedation, monitoring of the level of consciousness and physiologic parameters including but not limited to vital signs and oxygenation. Patient tolerated the procedure well without any acute complications. Start time: 1116 Stop time: 11:30
--- NOTE | 2018-05-27 13:00 | P.PN ---
Subjective Progress Note Date: 05/27/18 This is a 82-year-old female who presented to the emergency room with implant of increased peripheral edema and urinary retention. Patient has been currently [facility] post hospitalization 1 month ago for CHF and pacemaker placement. Patient has a known past medical history of paroxysmal atrial fibrillation which she takes eliquis, asthma, heart failure, COPD, hypertension, thyroid disorder and permanent pacemaker and AICD placement in April 2018. Chest x-ray completed emergency room showing pulmonary interstitial fibrotic changes. There is some left upper lobe pneumonia that is new compared to last exam. There are fibrotic changes at the lung apices. There is no seen pleural fluid to suggest heart failure. Heart is not enlarged. EKG completed showing normal sinus rhythm. Urinary analysis completed showing large amount of leukocyte Estrace. Urine culture has been ordered. Right foot is erythema and tender to touch. Patient started vancomycin for possible cellulitis. Patient started on IV Bumex 1 mg twice a day. Cardiology services consulted. Patient sees Dr. Oreilly outpatient pulmonary services. Dr. Oreilly consulted. Patient having issues with urinary retention over the past week. Saucedo catheter placed and urology consulted. Patient denies chest pain. Patient does state she is having some shortness of breath with activity. Patient denies nausea vomiting or diarrhea. Denies any urinary burning or frequency. 05/27/2018 patient lying in bed comfortably. She just underwent cardiac ablation. She went into atrial fibrillation with rapid ventricular response yesterday and through the evening. Heart rate got as high as 160. Patient also had her AICD interrogated at this time. Patient is currently in a paced rhythm. Medications have been adjusted per cardiology. Verapamil, Multaq, digoxin has been discontinued. Metoprolol decreased to 50 mg twice a day. Patient seen by infectious disease. Antibiotics have been adjusted she is currently on daptomycin and Azactam for the cellulitis and UTI Objective - Vital Signs Vital signs: Vital Signs Temp 97.7 F 05/27/18 12:09 Pulse 91 05/27/18 12:15 Resp 20 05/27/18 12:15 BP 122/61 05/27/18 12:15 Pulse Ox 97 05/27/18 12:15 Intake & Output 05/26/18 05/27/18 05/27/18 18:59 06:59 18:59 Intake Total 760 120 410 Output Total 2000 Balance 760 -1880 410 Weight 96.6 kg Intake: IV 50 Intake, IV Titration 40 Amount Sodium Chloride 0.9% 1, 40 000 ml @ 20 mls/hr IV . Q24H [facility] Rx#:[id number] Oral 720 120 360 Output: Urine 1999 Other: Voiding Method Indwelling Catheter Indwelling Catheter # Voids 1 # Bowel Movements 1 - Exam Head normocephalic Neck supple Lungs clear to auscultation bilaterally no wheezing or crackles Heart regular rate and rhythm S1-S2, no rub or gallop Abdomen is soft nontender nondistended positive bowel sounds no hepatosplenomegaly Extremities legs are Abran wrapped bilaterally. 2+ edema bilaterally Neuro alert and orientated to 3 - Labs CBC & Chem 7: 05/27/18 05:34 05/27/18 05:34 Labs: Abnormal Lab Results - Last 24 Hours (Table) 05/27/18 05/27/18 Range/Units 05:34 05:34 RBC 3.68 L (3.80-5.40) m/uL Potassium 3.2 L (3.5-5.1) mmol/L Carbon Dioxide 32 H (22-30) mmol/L BUN 22 H (7-17) mg/dL Calcium 8.1 L (8.4-10.2) mg/dL Total Protein 4.8 L (6.3-8.2) g/dL Albumin 2.3 L (3.5-5.0) g/dL Microbiology - Last 24 Hours (Table) 05/25/18 19:10 Blood Culture - Preliminary Blood No Growth after 24 hours 05/26/18 12:50 Urine Culture - Preliminary Urine,Catheterized Assessment and Plan Assessment: 1. Acute on chronic diastolic congestive heart failure. BNP 4280. Patient started on IV Bumex twice a day. 2-D echo had shown normal EF on prior admission. Followed by cardiology. 2. Urinary retention. Saucedo catheter placed. Seen by urology. The recommending to leave Saucedo catheter for 2-3 days before undergoing a voiding trial 3. Hypokalemia patient receiving potassium supplement 4. Cellulitis of the right foot. Blood culture has been ordered. Antibiotics per infectious disease 5. Urinary tract infection. Continue antibiotics. Await urine culture. Antibiotics per infectious disease 6. Pneumonia ruled out. Findings most likely secondary to congestive heart failure exacerbation 7. History of paroxysmal atrial fibrillation. With episodes of rapid ventricular response heart rate as high as 160. Patient underwent cardiac ablation today is currently in a paced rhythm. Medications have been adjusted per cardiology. They have discontinue verapamil,multaq, and digoxin. Metoprolol decreased to 50 mg twice a day 8. History of COPD. Continue home medication. Pulmonary services following 9. Recent pacemaker implantation. 10. Essential hypertension 11. Acute kidney injury. Initial creatinine 1.25. Repeat 1.06. We'll continue to monitor closely 12. Chronic back pain. Patient states she takes Neurontin 300 mg twice a day but has only been on 100 mg. Neurontin has been increased to 300 twice a day. Sidon when necessary for pain 13. Cannot exclude a new spiculated nodule in the right lower lobe noted on computed tomography scan of the chest. Pulmonary service following. DVT prophylaxis Eliquis and GI prophylaxis Protonix I performed an examination of the patient and discussed their management with the physician Braille Teacher. I have reviewed the Physician Braille Teacher's notes and agree with the documented findings and plan of care
[2018-05-27] MEDS: BUMETANIDE 12 MG in DEXTROSE 5% IN WATER 192 ML IV SCH ×4 (16:03→21:55)
[2018-05-27] MEDS: MONTELUKAST 10 MG TAB PO SCH (19:48)
[2018-05-27] MEDS: LATANOPROST 0.005% OPHTH DROPS 2.5 ML BTL RIGHT EYE SCH (19:49)
[2018-05-27] MEDS: SODIUM CHLORIDE 0.9% 1,000 ML IV SCH (19:50)
[2018-05-27] MEDS: DAPTOmycin 500 MG in SODIUM CHLORIDE 0.9% 50 ML IVPB SCH (21:53)
[2018-05-28] MEDS: PANTOPRAZOLE 40 MG TABLET PO SCH (06:20)
[2018-05-28 06:45] LABS: Basophils % (A) 0 %; Eosinophils # (A) 0.3 k/uL (0-0.7); Eosinophils % (A) 4 %; HCT 36.1 % (34.0-46.0); HGB 11.8 gm/dL (11.4-16.0); Lymphocytes % (A) 29 %; MCH 31.6 pg (25.0-35.0); MCHC 32.6 g/dL (31.0-37.0); MCV 96.9 fL (80.0-100.0); Mean Platelet Volume 8.1; Monocytes # (A) 0.4 k/uL (0-1.0); Monocytes % (A) 6 %; Neutrophils # (A) 4.2 k/uL (1.3-7.7); Neutrophils % (A) 60 %; Platelet Count 174 k/uL (150-450); RBC 3.73 m/uL (3.80-5.40); RDW 14.8 % (11.5-15.5)
[2018-05-28 07:02] LABS: Albumin 2.4 g/dL (3.5-5.0); Calcium 7.9 mg/dL (8.4-10.2); Potassium 3.1 mmol/L (3.5-5.1)
[2018-05-28] MEDS: IPRATROPIUM-ALBUTEROL 3 ML NEB INHALATION PRN (08:50)
[2018-05-28] MEDS: BUDESONIDE 0.5 MG/2 ML NEBU INHALATION SCH ×2 (08:50→19:11)
[2018-05-28] MEDS: AZTREONAM 1 GM in SODIUM CHLORIDE 0.9% 50 ML IVPB SCH ×3 (09:33→23:09)
[2018-05-28] MEDS: GABAPENTIN 300 MG CAP PO SCH ×2 (09:34→20:05)
[2018-05-28] MEDS: APIXABAN 2.5 MG TABLET PO SCH ×2 (09:34→20:05)
[2018-05-28] MEDS: ASCORBIC ACID 500 MG TAB PO SCH (09:34)
[2018-05-28] MEDS: CHOLECALCIFEROL 1,000 UNIT TAB PO SCH (09:34)
[2018-05-28] MEDS: METOPROLOL TARTRATE 50 MG TAB PO SCH ×2 (09:35→20:05)
[2018-05-28] MEDS: BUMETANIDE 12 MG in DEXTROSE 5% IN WATER 192 ML IV SCH ×4 (09:35→20:05)
[2018-05-28] MEDS: SILVER sulfADIAZINE Cream 400 GM 1 APPLIC APPLIC TOPICAL SCH (09:35)
[2018-05-28] MEDS ORDERED: Potassium Replacement Protocol 1 EACH MISC MISCELLANE PRN (09:54)
--- NOTE | 2018-05-28 10:11 | P.PN ---
<Albertina Pérez E - Last Filed: 05/28/18 09:46> Subjective Progress Note Date: 05/28/18 History of present illness: This is an 82-year-old female patient well-known to our services being seen examined and evaluated today on consultation. The patient came in to the emergency room from [facility] with complaints of shortness of breath that had been getting worse over the past few days as well as increase in her lower extremity edema. This patient was previously hospitalized from 04/28/2018 and discharged on 05/08/18, with CHF and A. fib, the patient did undergo a cardiac catheterization as well as a cardioversion during that addmission but the patient did go back into A. fib. The patient did undergo a pacemaker insertion as well during her last admission. She is being seen in the outpatient setting and is supposed to be scheduled with Dr. Espana for a cardiac ablation in a few weeks. Apparently at the [facility], the patient was experiencing shortness of breath, increased edema in the bilateral lower extremities and had some urinary retention for which she was straight cathed a few times for, as well as a 16 pound weight gain in the last few days. Upon evaluation in the emergency room the patient was also noted to have erythema and warmth over the dorsal aspect of each foot and miranda. She did have some superficial wounds/cellulitis to the dorsal aspect of each foot. Noted to have +3 lateral lower extremity edema. Chest x-ray was obtained and did show pulmonary interstitial fibrotic changes with some left upper lobe pneumonia that was new compared to last exam as well as fibrotic changes in the lung apices. She was also noted to be hypoxic and did require 2 L of supplemental oxygen via nasal cannula. Saucedo catheter was inserted for urinary retention and she was admitted for further evaluation and workup. Upon examination today the patient is resting up in bed on 2 L of supplemental oxygen via nasal cannula. She does have bilateral Abran wraps on her legs. She does have some shortness of breath with exertion, does complain of some intermittent congested cough no sputum production. She has had good output from her Saucedo catheter. Urinalysis is positive for UTI, culture pending. Cardiology is on consult for seeing the patient. Daughter is at bedside and updated on plan of care. Interval history: 05/27/2018patient is being seen examined and evaluated today on rounds. She is resting up in bed on 2 L of supplemental oxygen. The patient states she has had some increase in her shortness of breath overnight. She also was noted to have a rhythm change and went into A. fib with RVR overnight. The patient is scheduled to go for her ablation today with Dr. Espana. Her potassium was noted to be 3.2 and is being replaced. Infectious disease did see her yesterday and adjusted her antibiotics. She was also seen by urology and have recommended the patient maintain the Saucedo for couple more days. She has had been having good output and diuresing well with the Bumex. Afebrile no further complaints 05/28/18- patient is being seen examined and evaluated today on rounds. She did undergo a cardiac ablation yesterday please see procedure notes for that. She was initiated on a Bumex drip yesterday and has been diuresing well. She still has the Saucedo catheter. She is on 2 L of supplemental oxygen via nasal cannula. She does get short of breath with exertion and activity, feels breathing treatments help. Objective - Vital Signs Vital signs: Vital Signs Temp 98.1 F 05/28/18 08:00 Pulse 91 05/28/18 09:06 Resp 20 05/28/18 08:00 BP 118/68 05/28/18 08:00 Pulse Ox 95 05/28/18 08:51 Intake & Output 05/27/18 05/28/18 05/28/18 18:59 06:59 18:59 Intake Total 2009 240 240 Output Total 4100 Balance 2009 -386 240 Weight 96.6 kg 99 kg Intake: IV 190 Aztreonam 1 gm In Sodium 100 Chloride 0.9% 50 ml @ 100 mls/hr IVPB Q8HR [facility] Rx# :[id number] Bumetanide 12 mg In 40 Dextrose 5% in Water 192 ml @ 1 MG/HR 20 mls/hr IV .Q12H [facility] Rx#:[id number] Intake, IV Titration 240 Amount Bumetanide 12 mg In 240 Dextrose 5% in Water 192 ml @ 1 MG/HR 20 mls/hr IV .Q12H [facility] Rx#:[id number] Oral 1820 240 Output: Urine 4100 Other: Voiding Method Indwelling Catheter Indwelling Catheter Indwelling Catheter # Voids 1 # Bowel Movements 1 1 - Exam GENERAL EXAM: Alert, comfortable in no apparent distress. HEAD: Normocephalic. EYES: Normal reaction of pupils, equal size. NOSE: Clear with pink turbinates. THROAT: No erythema or exudates. NECK: No masses, no JVD. CHEST: No chest wall deformity. LUNGS: Lung sounds noted to be diminished with a faint expiratory wheeze. Bases diminished CVS: S1 and S2 normal with no audible mumurs, regular rhythm. ABDOMEN: No hepatosplenomegaly, normal bowel sounds, no guarding or rigidity. EXTREMITIES: +2 edema noted, improving. Patient noted to have some bilateral erythema and warmth as well as signs of cellulitis CENTRAL NERVOUS SYSTEM: No focal deficits, tone is normal in all 4 extremities. - Labs CBC & Chem 7: 05/28/18 06:02 05/28/18 06:02 Labs: Abnormal Lab Results - Last 24 Hours (Table) 05/28/18 05/28/18 Range/Units 06:02 06:02 RBC 3.73 L (3.80-5.40) m/uL Potassium 3.1 L (3.5-5.1) mmol/L Carbon Dioxide 32 H (22-30) mmol/L BUN 24 H (7-17) mg/dL Calcium 7.9 L (8.4-10.2) mg/dL Total Protein 5.0 L (6.3-8.2) g/dL Albumin 2.4 L (3.5-5.0) g/dL Microbiology - Last 24 Hours (Table) 05/26/18 12:50 Urine Culture - Preliminary Urine,Catheterized Gram Neg Bacilli 05/25/18 19:10 Blood Culture - Preliminary Blood No Growth after 48 hours Assessment and Plan Assessment: Assessment Acute hypoxic respiratory failure Acute exacerbation of CHF Possible left upper lobe pneumonia Acute exacerbation of COPD Chronic moderate to severe persistent asthma not acutely exacerbated Lower extremity edema Bilateral lower extremity cellulitis Present on admission UTI Urinary retention Moderate protein calorie malnutrition Obesity History of Paroxysmal atrial fibrillation A. fib with RVR Plan Medications reviewed and will be continued as ordered S/p cardiac ablation Cultures pending Bumex for diuresis Antibiotics O2 to maintain saturation greater than or equal to 90% Duo nebs and Pulmicort Singulair Monitor I's and O's Daily weights Cardiology recommendations Incentive spirometry and pulmonary hygiene Increase activity as tolerated PT and OT GI and DVT prophylaxis We will continue to follow labs/reports and adjust treatment as necessary I performed an examination of the patient and discussed their management with the nurse practitioner. I have reviewed the nurse practitioner's note and agree with the documented findings and plan of care. <EmilyLinette casey A - Last Filed: 05/28/18 13:28> Objective - Vital Signs Vital signs: Vital Signs Temp 97.1 F L 05/28/18 11:09 Pulse 93 05/28/18 12:05 Resp 20 05/28/18 12:00 BP 129/55 05/28/18 11:09 Pulse Ox 93 L 05/28/18 11:09 Intake & Output 05/27/18 05/28/18 05/28/18 18:59 06:59 18:59 Intake Total 2009 240 480 Output Total 4100 1650 Balance 20090 Weight 96.6 kg 99 kg Intake: IV 190 Aztreonam 1 gm In Sodium 100 Chloride 0.9% 50 ml @ 100 mls/hr IVPB Q8HR [facility] Rx# :[id number] Bumetanide 12 mg In 40 Dextrose 5% in Water 192 ml @ 1 MG/HR 20 mls/hr IV .Q12H [facility] Rx#:[id number] Intake, IV Titration 240 Amount Bumetanide 12 mg In 240 Dextrose 5% in Water 192 ml @ 1 MG/HR 20 mls/hr IV .Q12H [facility] Rx#:[id number] Oral 1820 480 Output: Urine 4100 1650 Other: Voiding Method Indwelling Catheter Indwelling Catheter Indwelling Catheter # Voids 1 # Bowel Movements 1 1 - Labs CBC & Chem 7: 05/28/18 06:02 05/28/18 06:02 Labs: Abnormal Lab Results - Last 24 Hours (Table) 05/28/18 05/28/18 Range/Units 06:02 06:02 RBC 3.73 L (3.80-5.40) m/uL Potassium 3.1 L (3.5-5.1) mmol/L Carbon Dioxide 32 H (22-30) mmol/L BUN 24 H (7-17) mg/dL Calcium 7.9 L (8.4-10.2) mg/dL Total Protein 5.0 L (6.3-8.2) g/dL Albumin 2.4 L (3.5-5.0) g/dL Microbiology - Last 24 Hours (Table) 05/26/18 12:50 Urine Culture - Preliminary Urine,Catheterized Gram Neg Bacilli 05/25/18 19:10 Blood Culture - Preliminary Blood No Growth after 48 hours Assessment and Plan Assessment: Patient seen and examined with daughter at bedside. Patient states she is feeling much better. She says her swelling is improving. She is on bumex drip. She has been hemodynamically stable. Had ablation yesterday. Scattered wheezing. Outpatient follow up for abnormal CT chest. PT and OT. ~Linette Oreilly DO
[2018-05-28] MEDS: POTASSIUM CHLORIDE ER 20 MEQ TAB.ER PO SCH ×2 (11:04→11:42)
--- NOTE | 2018-05-28 11:14 | P.PN ---
Subjective Progress Note Date: 05/28/18 This is a 82-year-old female who presented to the emergency room with implant of increased peripheral edema and urinary retention. Patient has been currently residing at [facility] for physical therapy post hospitalization 1 month ago for CHF and pacemaker placement. Patient has a known past medical history of paroxysmal atrial fibrillation which she takes eliquis, asthma, heart failure, COPD, hypertension, thyroid disorder and permanent pacemaker and AICD placement in April 2018. Chest x-ray completed emergency room showing pulmonary interstitial fibrotic changes. There is some left upper lobe pneumonia that is new compared to last exam. There are fibrotic changes at the lung apices. There is no seen pleural fluid to suggest heart failure. Heart is not enlarged. EKG completed showing normal sinus rhythm. Urinary analysis completed showing large amount of leukocyte Estrace. Urine culture has been ordered. Right foot is erythema and tender to touch. Patient started vancomycin for possible cellulitis. Patient started on IV Bumex 1 mg twice a day. Cardiology services consulted. Patient sees Dr. Oreilly outpatient pulmonary services. Dr. Oreilly consulted. Patient having issues with urinary retention over the past week. Saucedo catheter placed and urology consulted. Patient denies chest pain. Patient does state she is having some shortness of breath with activity. Patient denies nausea vomiting or diarrhea. Denies any urinary burning or frequency. 05/27/2018 patient lying in bed comfortably. She just underwent cardiac ablation. She went into atrial fibrillation with rapid ventricular response yesterday and through the evening. Heart rate got as high as 160. Patient also had her AICD interrogated at this time. Patient is currently in a paced rhythm. Medications have been adjusted per cardiology. Verapamil, Multaq, digoxin has been discontinued. Metoprolol decreased to 50 mg twice a day. Patient seen by infectious disease. Antibiotics have been adjusted she is currently on daptomycin and Azactam for the cellulitis and UTI 05/28/2018 patient underwent cardiac ablation yesterday. Currently in a paced rhythm. Was started on Bumex drip yesterday per cardiology. Patient's shortness of breath and lower extremity showing improvement. Potassium is being replaced. She is asking about Moody for pain medication and it is on her medication list. She denies any chest pain. Shortness of breath improving. Denies any nausea or vomiting. Reports having bowel movements. She is asking when her Saucedo catheter can be removed. Bumex drip started yesterday we'll continue with Saucedo catheter for now Objective - Vital Signs Vital signs: Vital Signs Temp 98.1 F 05/28/18 08:00 Pulse 91 05/28/18 09:06 Resp 20 05/28/18 08:00 BP 118/68 05/28/18 08:00 Pulse Ox 95 05/28/18 08:51 Intake & Output 05/27/18 05/28/18 05/28/18 18:59 06:59 18:59 Intake Total 2009 240 240 Output Total 4100 Balance 2009 -3859 240 Weight 96.6 kg 99 kg Intake: IV 190 Aztreonam 1 gm In Sodium 100 Chloride 0.9% 50 ml @ 100 mls/hr IVPB Q8HR [facility] Rx# :[id number] Bumetanide 12 mg In 40 Dextrose 5% in Water 192 ml @ 1 MG/HR 20 mls/hr IV .Q12H [facility] Rx#:[id number] Intake, IV Titration 240 Amount Bumetanide 12 mg In 240 Dextrose 5% in Water 192 ml @ 1 MG/HR 20 mls/hr IV .Q12H [facility] Rx#:[id number] Oral 1820 240 Output: Urine 4100 Other: Voiding Method Indwelling Catheter Indwelling Catheter Indwelling Catheter # Voids 1 # Bowel Movements 1 1 - Exam Head normocephalic Neck supple Lungs clear to auscultation bilaterally no wheezing or crackles Heart regular rate and rhythm S1-S2, no rub or gallop Abdomen is soft nontender nondistended positive bowel sounds no hepatosplenomegaly Extremities legs are Abran wrapped bilaterally. +1 edema bilaterally Neuro alert and orientated to 3 - Labs CBC & Chem 7: 05/28/18 06:02 05/28/18 06:02 Labs: Abnormal Lab Results - Last 24 Hours (Table) 05/28/18 05/28/18 Range/Units 06:02 06:02 RBC 3.73 L (3.80-5.40) m/uL Potassium 3.1 L (3.5-5.1) mmol/L Carbon Dioxide 32 H (22-30) mmol/L BUN 24 H (7-17) mg/dL Calcium 7.9 L (8.4-10.2) mg/dL Total Protein 5.0 L (6.3-8.2) g/dL Albumin 2.4 L (3.5-5.0) g/dL Microbiology - Last 24 Hours (Table) 05/26/18 12:50 Urine Culture - Preliminary Urine,Catheterized Gram Neg Bacilli 05/25/18 19:10 Blood Culture - Preliminary Blood No Growth after 48 hours Assessment and Plan Assessment: 1. Acute on chronic diastolic congestive heart failure. BNP 4280. 2-D echo had shown normal EF on prior admission. Followed by cardiology. Patient started on IV Bumex drip yesterday 2. Urinary retention. Saucedo catheter placed. Seen by urology. The recommending to leave Saucedo catheter for 2-3 days before undergoing a voiding trial. We'll continue Saucedo catheter while patient is on a Bumex drip 3. Hypokalemia patient receiving potassium supplement 4. Cellulitis of the right foot. Blood culture has been ordered. Antibiotics per infectious disease 5. Urinary tract infection. Urine culture growing gram-negative bacilli. Continue antibiotics per infectious disease 6. Pneumonia ruled out. Findings most likely secondary to congestive heart failure exacerbation 7. History of paroxysmal atrial fibrillation. With episodes of rapid ventricular response heart rate as high as 160. Patient underwent cardiac ablation today is currently in a paced rhythm. Medications have been adjusted per cardiology. They have discontinue verapamil,multaq, and digoxin. Metoprolol decreased to 50 mg twice a day 8. History of COPD. Continue home medication. Pulmonary services following 9. Recent pacemaker implantation. 10. Essential hypertension 11. Acute kidney injury. Initial creatinine 1.25. Repeat 1.04. We'll continue to monitor closely 12. Chronic back pain. Patient states she takes Neurontin 300 mg twice a day but has only been on 100 mg. Neurontin has been increased to 300 twice a day. Moody when necessary for pain 13. Cannot exclude a new spiculated nodule in the right lower lobe noted on computed tomography scan of the chest. Pulmonary service following. DVT prophylaxis Eliquis and GI prophylaxis Protonix Continue physical therapy. Patient will return to [facility] when stable for discharge I performed an examination of the patient and discussed their management with the physician Business Operations Coordinator. I have reviewed the Physician Business Operations Coordinator's notes and agree with the documented findings and plan of care
[2018-05-28] MEDS: IPRATROPIUM-ALBUTEROL 3 ML NEB INHALATION SCH ×3 (11:55→19:11)
--- NOTE | 2018-05-28 14:23 | P.PN ---
Subjective Progress Note Date: 05/28/18 This is a pleasant 82-year-old female who follows regularly with Dr. Holliday in the office. She has a known history of hypertension, paroxysmal atrial fibrillation, recently hospitalized in April with acute on chronic diastolic congestive heart failure exacerbation and underwent implantation of permanent pacemaker by Dr. Espana. She was initially scheduled to undergo ablation for A. fib on June 25. She has been staying at [facility] for rehab. She had been having some significant difficulty and urinating with shortness of breath and edema. Chest x-ray on admission showed pulmonary interstitial fibrotic changes and some left upper lobe pneumonia as compared to prior exam. Patient underwent device interrogation with reprogramming, cardioversion for atrial fibrillation and AV node ablation/modification yesterday with Dr. Mayes. She remains on a Bumex drip. Her verapamil, digoxin and multaq have been discontinued. She remains on metoprolol 50 mg by mouth twice a day. She is also on Eliquis 2.5 mg BID for anticoagulation. Objective - Vital Signs Vital signs: Vital Signs Temp 97.1 F L 05/28/18 11:09 Pulse 93 05/28/18 12:05 Resp 20 05/28/18 12:00 BP 129/55 05/28/18 11:09 Pulse Ox 93 L 05/28/18 11:09 Intake & Output 05/27/18 05/28/18 05/28/18 18:59 06:59 18:59 Intake Total 2009 240 240 Output Total 4100 Balance 2009 -3860 240 Weight 96.6 kg 99 kg Intake: IV 190 Aztreonam 1 gm In Sodium 100 Chloride 0.9% 50 ml @ 100 mls/hr IVPB Q8HR [facility] Rx# :[id number] Bumetanide 12 mg In 40 Dextrose 5% in Water 192 ml @ 1 MG/HR 20 mls/hr IV .Q12H [facility] Rx#:[id number] Intake, IV Titration 240 Amount Bumetanide 12 mg In 240 Dextrose 5% in Water 192 ml @ 1 MG/HR 20 mls/hr IV .Q12H [facility] Rx#:[id number] Oral 1820 240 Output: Urine 4100 Other: Voiding Method Indwelling Catheter Indwelling Catheter Indwelling Catheter # Voids 1 # Bowel Movements 1 1 - Exam PHYSICAL EXAMINATION: HEENT: [Head is atraumatic, normocephalic. Pupils equal, round. Neck is supple. There is no elevated jugular venous pressure.] HEART EXAMINATION: [Heart sounds regular, S1 and S2 with a systolic murmur.] CHEST EXAMINATION:[ Lungs reveal diminished air entry with expiratory wheezing throughout. No chest wall tenderness is noted on palpation or with deep breathing.] ABDOMEN: [ Soft, obese, nontender. Bowel sounds are heard. No organomegaly noted ]. EXTREMITIES:[ Diminished peripheral pulses with evidence of 2+ peripheral edema and no calf tenderness noted. Abran wraps present bilaterally to lower extremities. Right groin puncture site soft and dry without ecchymosis or hematoma]. NEUROLOGIC [patient is awake, alert and oriented x3.] . - Labs CBC & Chem 7: 05/28/18 06:02 05/28/18 06:02 Labs: Abnormal Lab Results - Last 24 Hours (Table) 05/28/18 05/28/18 Range/Units 06:02 06:02 RBC 3.73 L (3.80-5.40) m/uL Potassium 3.1 L (3.5-5.1) mmol/L Carbon Dioxide 32 H (22-30) mmol/L BUN 24 H (7-17) mg/dL Calcium 7.9 L (8.4-10.2) mg/dL Total Protein 5.0 L (6.3-8.2) g/dL Albumin 2.4 L (3.5-5.0) g/dL Microbiology - Last 24 Hours (Table) 05/26/18 12:50 Urine Culture - Preliminary Urine,Catheterized Gram Neg Bacilli 05/25/18 19:10 Blood Culture - Preliminary Blood No Growth after 48 hours Assessment and Plan Assessment: #1 symptomatic paroxysmal atrial fibrillation, status post AV node modification #2 diastolic congestive heart failure, acute on chronic #3 COPD #4 recent pacemaker implantation #5 hypertension #6 significant bilateral lower extremity edema with possible cellulitis Plan: From cardiology 's perspective, continue Bumex drip. We will continue to monitor electrolytes and renal function. Replace potassium. We will start the patient on Aldactone 25 mg by mouth twice a day. Patient will be paced at a rate of 90 bpm for the next 2 weeks. We will continue to follow the patient provide further recommendations accordingly. BOAT TENDER note has been reviewed, I agree with a documented findings and plan of care. Patient was seen and examined.
--- NOTE | 2018-05-28 17:06 | P.PN ---
Subjective Progress Note Date: 05/28/18 Pleasant 82-year-old female is a resident at [facility] in the [facility] for rehabilitation. She has a known history of underlying congestive heart failure and cardiac dysrhythmia with atrial fibrillation. Was admitted in April at which point in time she underwent interventions including cardioversion for atrial fibrillation as well as pacemaker insertion by Dr. Landaverde. If she improves plan was for a cardiac ablation, she however is developed extensive weight gain of 16 pounds with progressive shortness of breath and extensive bilateral lower extremity edema. Evidence of recurrent in worsening congestive heart failure and cancer she was admitted to hospital. She was seen by her awning craftsperson she evidence of significant shortness of breath and great difficulties with urinary retention and consequently her ultrasound was performed revealing evidence of large volume urinary retention because she was admitted to hospital. The catheters placed and she is receiving diuretic therapy with significant improvement of her shortness of breath pulse ox is at the 94% on room air at this time. There is concerned she urinary infection as well as etiology of the urinary obstruction. She's been seen by urology evaluation is in process as to the etiology of the urinary retention. The patient is developed a significant bilateral lower extremity edema with significant erythema especially in the dorsum of the left foot 05/28/2018 patient is feeling somewhat better today. With the extensive diuresis her edema has improved. Urinary retention has currently resolved. Objective - Vital Signs Vital signs: Vital Signs Temp 98.1 F 05/28/18 16:00 Pulse 88 05/28/18 16:07 Resp 22 05/28/18 16:00 BP 109/62 05/28/18 16:00 Pulse Ox 95 05/28/18 16:00 Intake & Output 05/27/18 05/28/18 05/28/18 18:59 06:59 18:59 Intake Total 2009 240 480 Output Total 4100 8940 Balance 20094070 -1170 Weight 96.6 kg 99 kg Intake: IV 190 Aztreonam 1 gm In Sodium 100 Chloride 0.9% 50 ml @ 100 mls/hr IVPB Q8HR [facility] Rx# :[id number] Bumetanide 12 mg In 40 Dextrose 5% in Water 192 ml @ 1 MG/HR 20 mls/hr IV .Q12H [facility] Rx#:[id number] Intake, IV Titration 240 Amount Bumetanide 12 mg In 240 Dextrose 5% in Water 192 ml @ 1 MG/HR 20 mls/hr IV .Q12H [facility] Rx#:[id number] Oral 1820 480 Output: Urine 4100 1650 Other: Voiding Method Indwelling Catheter Indwelling Catheter Indwelling Catheter # Voids 1 # Bowel Movements 1 1 - Exam pleasant 82-year-old woman who apparently is improved much less short of breath HEENT: Anicteric conjunctiva are pink and moist nasal mucosa grossly intact without significant lesions, there is no thrush. Neck: The neck is supple without significant lymphadenopathy or thyromegaly. Lungs: they're symmetrical bilaterally entry, evidence of basilar crackles but no quita bronchial sounds are noted no dullness or egophony Heart: irregular irregular with an audible S4. There is no significant murmur click or rub, PMI was nondisplaced. Abdomen: mildly obese,Positive bowel sounds soft and nontender without palpable masses or organomegaly. There was no guarding or rebound. Extremities: the upper extremity show evidence of some flaccidity to the tissue but no significant open lesions are seen, IV site left arm is tender without erythema The lower extremities show evidence of the extensive bilateral extremities edema that's improving as noted by the deep and extensive linear wrinkles that have developed with diuresis and mild compressionthere are no quita open ulcers at this time. The left foot is quite tender to touch. Neuro: Awake alert oriented to person place and time. There are no acute new gross focal sensory motor deficits. - Labs CBC & Chem 7: 05/28/18 06:02 05/28/18 06:02 Labs: Abnormal Lab Results - Last 24 Hours (Table) 05/28/18 05/28/18 Range/Units 06:02 06:02 RBC 3.73 L (3.80-5.40) m/uL Potassium 3.1 L (3.5-5.1) mmol/L Carbon Dioxide 32 H (22-30) mmol/L BUN 24 H (7-17) mg/dL Calcium 7.9 L (8.4-10.2) mg/dL Total Protein 5.0 L (6.3-8.2) g/dL Albumin 2.4 L (3.5-5.0) g/dL Microbiology - Last 24 Hours (Table) 05/26/18 12:50 Urine Culture - Preliminary Urine,Catheterized Gram Neg Bacilli 05/25/18 19:10 Blood Culture - Preliminary Blood No Growth after 48 hours Laboratory Results WBC 7.0 k/uL (3.8-10.6) 05/28/18 06:02 RBC 3.73 m/uL (3.80-5.40) L 05/28/18 06:02 Hgb 11.8 gm/dL (11.4-16.0) 05/28/18 06:02 Hct 36.1 % (34.0-46.0) 05/28/18 06:02 MCV 96.9 fL (80.0-100.0) 05/28/18 06:02 MCH 31.6 pg (25.0-35.0) 05/28/18 06:02 MCHC 32.6 g/dL (31.0-37.0) 05/28/18 06:02 RDW 14.8 % (11.5-15.5) 05/28/18 06:02 Plt Count 174 k/uL (150-450) 05/28/18 06:02 Neutrophils % 60 % 05/28/18 06:02 Lymphocytes % 29 % 05/28/18 06:02 Monocytes % 6 % 05/28/18 06:02 Eosinophils % 4 % 05/28/18 06:02 Basophils % 0 % 05/28/18 06:02 Neutrophils # 4.2 k/uL (1.3-7.7) 05/28/18 06:02 Lymphocytes # 2.0 k/uL (1.0-4.8) 05/28/18 06:02 Monocytes # 0.4 k/uL (0-1.0) 05/28/18 06:02 Eosinophils # 0.3 k/uL (0-0.7) 05/28/18 06:02 Basophils # 0.0 k/uL (0-0.2) 05/28/18 06:02 Macrocytosis Slight 05/27/18 05:34 PT 12.3 sec (9.0-12.0) H 05/25/18 19:10 INR 1.3 (<1.2) H 05/25/18 19:10 APTT 22.8 sec (22.0-30.0) 05/25/18 19:10 Sodium 141 mmol/L (137-145) 05/28/18 06:02 Potassium 3.1 mmol/L (3.5-5.1) L 05/28/18 06:02 Chloride 102 mmol/L (98-107) 05/28/18 06:02 Carbon Dioxide 32 mmol/L (22-30) H 05/28/18 06:02 Anion Gap 7 mmol/L 05/28/18 06:02 BUN 24 mg/dL (7-17) H 05/28/18 06:02 Creatinine 1.04 mg/dL (0.52-1.04) 05/28/18 06:02 Est GFR (CKD-EPI)AfAm 58 (>60 ml/min/1.73 sqM) 05/28/18 06:02 Est GFR (CKD-EPI)NonAf 51 (>60 ml/min/1.73 sqM) 05/28/18 06:02 Glucose 90 mg/dL (74-99) 05/28/18 06:02 Calcium 7.9 mg/dL (8.4-10.2) L 05/28/18 06:02 Total Bilirubin 1.0 mg/dL (0.2-1.3) 05/28/18 06:02 AST 20 U/L (14-36) 05/28/18 06:02 ALT 31 U/L (9-52) 05/28/18 06:02 Alkaline Phosphatase 60 U/L (38-126) 05/28/18 06:02 Total Creatine Kinase <20 U/L (30-135) L 05/25/18 19:10 CK-MB (CK-2) 0.6 ng/mL (0.0-2.4) 05/25/18 19:10 CK-MB (CK-2) Rel Index 05/25/18 19:10 Troponin I <0.012 ng/mL (0.000-0.034) 05/25/18 19:10 NT-Pro-B Natriuret Pep 4280 pg/mL 05/25/18 19:10 Total Protein 5.0 g/dL (6.3-8.2) L 05/28/18 06:02 Albumin 2.4 g/dL (3.5-5.0) L 05/28/18 06:02 TSH 1.110 mIU/L (0.465-4.680) 05/26/18 06:54 Urine Color Yellow 05/25/18 20:18 Urine Appearance Cloudy (Clear) H 05/25/18 20:18 Urine pH 5.5 (5.0-8.0) 05/25/18 20:18 Ur Specific Embarrass 1.011 (1.001-1.035) 05/25/18 20:18 Urine Protein Negative (Negative) 05/25/18 20:18 Urine Glucose (UA) Negative (Negative) 05/25/18 20:18 Urine Ketones Negative (Negative) 05/25/18 20:18 Urine Blood Negative (Negative) 05/25/18 20:18 Urine Nitrite Negative (Negative) 05/25/18 20:18 Urine Bilirubin Negative (Negative) 05/25/18 20:18 Urine Urobilinogen <2.0 mg/dL (<2.0) 05/25/18 20:18 Ur Leukocyte Esterase Large (Negative) H 05/25/18 20:18 Urine RBC 1 /hpf (0-5) 05/25/18 20:18 Urine WBC 23 /hpf (0-5) H 05/25/18 20:18 Urine WBC Clumps Occasional /hpf (None) H 05/25/18 20:18 Ur Squamous Epith Cells <1 /hpf (0-4) 05/25/18 20:18 Urine Bacteria Occasional /hpf (None) H 05/25/18 20:18 Hyaline Casts 3 /lpf (0-2) H 05/25/18 20:18 Urine Mucus Rare /hpf (None) H 05/25/18 20:18 Microbiology 05/26/18 12:50 Urine,Catheterized Urine Culture - Preliminary Gram Neg Bacilli 05/25/18 19:10 Blood Blood Culture - Preliminary No Growth after 48 hours Assessment and Plan (1) Congestive heart failure Current Visit: Yes Status: Acute Code(s): I50.9 - HEART FAILURE, UNSPECIFIED SNOMED Code(s): 32302276 (2) Bilateral lower extremity edema Narrative/Plan: Pleasant 82-year-old female that presents to the emergency center after being evaluated by her awning craftsperson. She had evidence of extensive volume overload with lower extremity edema and cellulitis. Also evidence of worsening congestive heart failure with atrial fibrillation that was not well controlled. Also concerns to urinary retention. She consequently had a Saucedo catheter placed and is now had excellent diuresis. There is evidence of some improvement of the lower extremity edema but continues to have a significant swelling and erythema to the left foot. Concerns for cellulitis at this area. Patient also had the urinary retention and likely has urinary infection current culture showing evidence of the gram-negative bacilli. Patient has been given a dose of levofloxacin however she is also on multaq in there can be a significant interaction and constantly will discontinue the Levaquin. For now we'll utilize daptomycin with Azactam for the cellulitis and the urinary tract infection. We'll continue current supportive care and monitor her edema. If she improves we'll do well to have compression stockings available from awakening to going to bed which likely will help the edema. She likely will need a 2 layer stocking so she can tolerate them better. 05/28/2018 the H and is he had some improvement in the last day. With diuresis her edema is improved in the lower extremities improved. There is evidence of the gram-negative bacilli in the urine culture she is currently on Azactam and her multiple ALLERGIES and her drug drug interaction issues. Once final identification available we'll hopefully be able to offer an oral alternative to her current medications. Continue with elevation wraps. In is noted for discharge hopefully can use some wraps and then get her into a 2 layer stocking system she will be able to have tolerance for for long-term. Current Visit: Yes Status: Acute Code(s): R60.0 - LOCALIZED EDEMA SNOMED Code(s): 774437239 (3) Cellulitis of left foot Current Visit: Yes Status: Acute Code(s): L03.116 - CELLULITIS OF LEFT LOWER LIMB SNOMED Code(s): 508124560
[2018-05-28] MEDS: LATANOPROST 0.005% OPHTH DROPS 2.5 ML BTL RIGHT EYE SCH (20:05)
[2018-05-28] MEDS: SPIRONOLACTONE 25 MG TAB PO SCH (20:06)
[2018-05-28] MEDS: MONTELUKAST 10 MG TAB PO SCH (20:06)
[2018-05-28] MEDS: SODIUM CHLORIDE 0.9% 1,000 ML IV SCH (20:06)
[2018-05-28] MEDS: DAPTOmycin 500 MG in SODIUM CHLORIDE 0.9% 50 ML IVPB SCH (21:38)
[2018-05-29 05:50] LABS: Basophils % (A) 1 %; Eosinophils # (A) 0.4 k/uL (0-0.7); Eosinophils % (A) 6 %; HCT 35.5 % (34.0-46.0); HGB 11.3 gm/dL (11.4-16.0); Lymphocytes # (A) 1.6 k/uL (1.0-4.8); Lymphocytes % (A) 24 %; MCH 31.6 pg (25.0-35.0); MCHC 31.9 g/dL (31.0-37.0); MCV 98.9 fL (80.0-100.0); Macrocytosis Slight; Mean Platelet Volume 7.9; Monocytes # (A) 0.4 k/uL (0-1.0); Monocytes % (A) 7 %; Neutrophils % (A) 62 %; Platelet Count 173 k/uL (150-450); RBC 3.59 m/uL (3.80-5.40); RDW 14.8 % (11.5-15.5); WBC 6.5 k/uL (3.8-10.6)
[2018-05-29 06:10] LABS: Albumin 2.3 g/dL (3.5-5.0); Calcium 7.9 mg/dL (8.4-10.2); Magnesium 1.5 mg/dL (1.6-2.3); Total Bilirubin 0.7 mg/dL (0.2-1.3)
[2018-05-29] MEDS: PANTOPRAZOLE 40 MG TABLET PO SCH (06:24)
[2018-05-29] MEDS ORDERED: Potassium Replacement Protocol 1 EACH MISC MISCELLANE PRN (07:36)
[2018-05-29] MEDS: SPIRONOLACTONE 25 MG TAB PO SCH ×2 (08:25→19:55)
[2018-05-29] MEDS: APIXABAN 2.5 MG TABLET PO SCH ×2 (08:25→19:55)
[2018-05-29] MEDS: ASCORBIC ACID 500 MG TAB PO SCH (08:25)
[2018-05-29] MEDS: POTASSIUM CHLORIDE ER 20 MEQ TAB.ER PO SCH ×2 (08:25→11:06)
[2018-05-29] MEDS: CHOLECALCIFEROL 1,000 UNIT TAB PO SCH (08:25)
[2018-05-29] MEDS: METOPROLOL TARTRATE 50 MG TAB PO SCH ×2 (08:25→19:58)
[2018-05-29] MEDS: AZTREONAM 1 GM in SODIUM CHLORIDE 0.9% 50 ML IVPB SCH ×3 (08:26→23:00)
[2018-05-29] MEDS: GABAPENTIN 300 MG CAP PO SCH ×2 (08:26→19:55)
[2018-05-29] MEDS: IPRATROPIUM-ALBUTEROL 3 ML NEB INHALATION SCH ×4 (09:18→20:14)
[2018-05-29] MEDS: BUDESONIDE 0.5 MG/2 ML NEBU INHALATION SCH ×2 (09:18→20:14)
--- NOTE | 2018-05-29 10:19 | P.PN ---
Subjective Progress Note Date: 05/29/18 [id number] female patient follows with Dr. Holliday on a regular basis in the office. She presented to the hospital with increasing shortness of breath and was diagnosed with acute on chronic diastolic heart failure. Chest x -ray on admission showed pulmonary interstitial fibrotic changes and some left upper lobe pneumonia. The patient underwent device interrogation with reprogramming, cardioversion for A. fib and AV node ablation/modification. The patient is doing well this morning. Denies chest discomfort or shortness of breath. She does have some expiratory wheezes on forced exhalation. Continues to have lower extremity edema. Potassium is 3.0 this morning and spleen replaced. Objective - Vital Signs Vital signs: Vital Signs Temp 97.5 F L 05/29/18 08:30 Pulse 92 05/29/18:18 Resp 18 05/29/18 08:30 BP 132/60 05/29/18 08:30 Pulse Ox 95 05/29/18 08:30 Intake & Output 05/28/18 05/29/18 05/29/18 18:59 06:59 18:59 Intake Total 1078 210 200 Output Total 2875 3825 Balance -1797 -361 200 Weight 89.3 kg Intake: Intake, IV Titration 210 Amount Bumetanide 12 mg In 210 Dextrose 5% in Water 192 ml @ 1 MG/HR 20 mls/hr IV .Q12H [facility] Rx#:[id number] Oral 1078 200 Output: Urine 2875 3825 Other: Voiding Method Indwelling Catheter Indwelling Catheter Indwelling Catheter # Bowel Movements 0 - Constitutional General appearance: Present: average body habitus - EENT Eyes: Present: normal appearance - Respiratory Respiratory: bilateral: diminished (Posteriorly at the basis), wheezing (On forced expiration), prolonged expiration - Cardiovascular Rhythm: regular Abnormal Heart Sounds: Present: systolic murmur - Peripheral edema leg Peripheral Edema: bilateral: 2+ - Gastrointestinal General gastrointestinal: Present: normal bowel sounds - Neurologic Neurologic: Present: CNII-XII intact - Labs CBC & Chem 7: 05/29/18 05:03 05/29/18 05:03 Labs: Abnormal Lab Results - Last 24 Hours (Table) 05/29/18 05/29/18 Range/Units 05:03 05:03 RBC 3.59 L (3.80-5.40) m/uL Hgb 11.3 L (11.4-16.0) gm/dL Potassium 3.0 L (3.5-5.1) mmol/L Chloride 96 L (98-107) mmol/L Carbon Dioxide 40 H (22-30) mmol/L BUN 27 H (7-17) mg/dL Calcium 7.9 L (8.4-10.2) mg/dL Magnesium 1.5 L (1.6-2.3) mg/dL Total Protein 5.0 L (6.3-8.2) g/dL Albumin 2.3 L (3.5-5.0) g/dL Microbiology - Last 24 Hours (Table) 05/26/18 12:50 Urine Culture - Final Urine,Catheterized Escherichia coli 05/25/18 19:10 Blood Culture - Preliminary Blood No Growth after 72 hours Assessment and Plan Assessment: 1 symptomatic paroxysmal atrial fibrillation status post AV node modification Diastolic heart failure, acute on chronic COPD Recent pacemaker implantation Hypertension Lower extremity edema Plan: Discontinue Bumex drip and start Bumex 1 mg by mouth twice a day. Continue with Aldactone. Strict I&O and daily weights. Replace potassium per protocol. Patient will be paced at a rate of 90 bpm for the next 2 weeks. We will continue to follow her closely. Nurse practitioner note has been reviewed, agree with the documented findings and plan of care. Patient was seen and examined.
[2018-05-29] MEDS: BUMETANIDE 12 MG in DEXTROSE 5% IN WATER 192 ML IV SCH ×2 (11:09)
--- NOTE | 2018-05-29 15:16 | P.PN ---
Subjective Progress Note Date: 05/29/18 This is a 82-year-old female who presented to the emergency room with implant of increased peripheral edema and urinary retention. Patient has been currently residing at [facility] on [facility] for physical therapy post hospitalization 1 month ago for CHF and pacemaker placement. Patient has a known past medical history of paroxysmal atrial fibrillation which she takes eliquis, asthma, heart failure, COPD, hypertension, thyroid disorder and permanent pacemaker and AICD placement in April 2018. Chest x-ray completed emergency room showing pulmonary interstitial fibrotic changes. There is some left upper lobe pneumonia that is new compared to last exam. There are fibrotic changes at the lung apices. There is no seen pleural fluid to suggest heart failure. Heart is not enlarged. EKG completed showing normal sinus rhythm. Urinary analysis completed showing large amount of leukocyte Estrace. Urine culture has been ordered. Right foot is erythema and tender to touch. Patient started vancomycin for possible cellulitis. Patient started on IV Bumex 1 mg twice a day. Cardiology services consulted. Patient sees Dr. Oreilly outpatient pulmonary services. Dr. Oreilly consulted. Patient having issues with urinary retention over the past week. Saucedo catheter placed and urology consulted. Patient denies chest pain. Patient does state she is having some shortness of breath with activity. Patient denies nausea vomiting or diarrhea. Denies any urinary burning or frequency. 05/27/2018 patient lying in bed comfortably. She just underwent cardiac ablation. She went into atrial fibrillation with rapid ventricular response yesterday and through the evening. Heart rate got as high as 160. Patient also had her AICD interrogated at this time. Patient is currently in a paced rhythm. Medications have been adjusted per cardiology. Verapamil, Multaq, digoxin has been discontinued. Metoprolol decreased to 50 mg twice a day. Patient seen by infectious disease. Antibiotics have been adjusted she is currently on daptomycin and Azactam for the cellulitis and UTI 05/28/2018 patient underwent cardiac ablation yesterday. Currently in a paced rhythm. Was started on Bumex drip yesterday per cardiology. Patient's shortness of breath and lower extremity showing improvement. Potassium is being replaced. She is asking about [place] for pain medication and it is on her medication list. She denies any chest pain. Shortness of breath improving. Denies any nausea or vomiting. Reports having bowel movements. She is asking when her Saucedo catheter can be removed. Bumex drip started yesterday we'll continue with Saucedo catheter for now Objective - Vital Signs Vital signs: Vital Signs Temp 97.8 F 05/29/18 11:41 Pulse 92 05/29/18 12:34 Resp 18 05/29/18 11:41 BP 125/69 05/29/18 11:41 Pulse Ox 94 L 05/29/18 11:41 Intake & Output 05/28/18 05/29/18 05/29/18 18:59 06:59 18:59 Intake Total 1078 210 200 Output Total 2875 3825 Balance -3028 -8825 200 Weight 89.3 kg Intake: Intake, IV Titration 210 Amount Bumetanide 12 mg In 210 Dextrose 5% in Water 192 ml @ 1 MG/HR 20 mls/hr IV .Q12H ОЛЕГ Rx#:[id number] Oral 1078 200 Output: Urine 2875 3825 Other: Voiding Method Indwelling Catheter Indwelling Catheter Indwelling Catheter # Bowel Movements 0 - Exam Head normocephalic Neck supple no JVD no goiter no lymphadenopathy Lungs clear to auscultation bilaterally no wheezing or crackles Heart regular rate and rhythm S1-S2, no rub or gallop Abdomen is soft nontender nondistended positive bowel sounds no hepatosplenomegaly Extremities legs are Abran wrapped bilaterally. +1 edema bilaterally Neuro alert and orientated to 3 - Labs CBC & Chem 7: 05/29/18 05:03 05/29/18 05:03 Labs: Abnormal Lab Results - Last 24 Hours (Table) 05/29/18 05/29/18 Range/Units 05:03 05:03 RBC 3.59 L (3.80-5.40) m/uL Hgb 11.3 L (11.4-16.0) gm/dL Potassium 3.0 L (3.5-5.1) mmol/L Chloride 96 L (98-107) mmol/L Carbon Dioxide 40 H (22-30) mmol/L BUN 27 H (7-17) mg/dL Calcium 7.9 L (8.4-10.2) mg/dL Magnesium 1.5 L (1.6-2.3) mg/dL Total Protein 5.0 L (6.3-8.2) g/dL Albumin 2.3 L (3.5-5.0) g/dL Microbiology - Last 24 Hours (Table) 05/26/18 12:50 Urine Culture - Final Urine,Catheterized Escherichia coli 05/25/18 19:10 Blood Culture - Preliminary Blood No Growth after 72 hours Assessment and Plan Plan: 1. Acute on chronic diastolic congestive heart failure. BNP 4280. 2-D echo had shown normal EF on prior admission. Followed by cardiology. Patient started on IV Bumex drip yesterday 2. Urinary retention. Saucedo catheter placed. Seen by urology. The recommending to leave Saucedo catheter for 2-3 days before undergoing a voiding trial. We'll continue Saucedo catheter while patient is on a Bumex drip 3. Hypokalemia patient receiving potassium supplement 4. Cellulitis of the right foot. Blood culture has been ordered. Antibiotics per infectious disease 5. Urinary tract infection. Urine culture growing gram-negative bacilli. Continue antibiotics per infectious disease 6. Pneumonia ruled out. Findings most likely secondary to congestive heart failure exacerbation 7. History of paroxysmal atrial fibrillation. With episodes of rapid ventricular response heart rate as high as 160. Patient underwent cardiac ablation today is currently in a paced rhythm. Medications have been adjusted per cardiology. They have discontinue verapamil,multaq, and digoxin. Metoprolol decreased to 50 mg twice a day 8. History of COPD. Continue home medication. Pulmonary services following 9. Recent pacemaker implantation. 10. Essential hypertension 11. Acute kidney injury. Initial creatinine 1.25. Repeat 1.04. We'll continue to monitor closely 12. Chronic back pain. Patient states she takes Neurontin 300 mg twice a day but has only been on 100 mg. Neurontin has been increased to 300 twice a day. [place] when necessary for pain 13. Cannot exclude a new spiculated nodule in the right lower lobe noted on computed tomography scan of the chest. Pulmonary service following. DVT prophylaxis Eliquis and GI prophylaxis Protonix Continue physical therapy. Patient will return to [facility] when stable for discharge
--- NOTE | 2018-05-29 16:23 | PN ---
PROGRESS NOTE The patient was seen on 05/29/2018. She is less short of breath and is starting to bring up some sputum at this time. On physical examination, blood pressure is 125/69, respiratory rate of 16, pulse rate of 92, temperature 97.8, O2 saturation on room is 94%. HEENT is unremarkable. Chest reveals expiratory wheeze. Cardiovascular system reveals an S1, S2. Abdomen is soft. There is trace edema. White count of 6.9, hemoglobin 11.3. Sodium 139, potassium 3, chloride 96, bicarb 40, BUN 27, creatinine 0.94. IMPRESSION AT THIS TIME: 1. Acute hypoxic respiratory failure secondary to congestive heart failure and possible left upper lobe pneumonia. 2. Asthma with acute exacerbation. 3. Chronic obstructive pulmonary disease. 4. Cellulitis. 5. Urinary tract infection. Continue current medications including montelukast, Pulmicort. May require a short burst of Solu-Medrol if she does not improve. Prognosis is fair. MMODL / IJN: [id number] /
[2018-05-29] MEDS: BUMETANIDE 1 MG TAB PO SCH (16:38)
[2018-05-29] MEDS: SILVER sulfADIAZINE Cream 400 GM 1 APPLIC APPLIC TOPICAL SCH (16:38)
[2018-05-29] MEDS: MONTELUKAST 10 MG TAB PO SCH (19:54)
[2018-05-29] MEDS: LATANOPROST 0.005% OPHTH DROPS 2.5 ML BTL RIGHT EYE SCH (19:55)
[2018-05-29] MEDS: SODIUM CHLORIDE 0.9% 1,000 ML IV SCH (20:03)
[2018-05-29] MEDS: DAPTOmycin 500 MG in SODIUM CHLORIDE 0.9% 50 ML IVPB SCH (21:18)
--- NOTE | 2018-05-29 22:09 | P.PN ---
Subjective Progress Note Date: 05/29/18 Pleasant 82-year-old female is a resident at [facility] in the [facility] for rehabilitation. She has a known history of underlying congestive heart failure and cardiac dysrhythmia with atrial fibrillation. Was admitted in April at which point in time she underwent interventions including cardioversion for atrial fibrillation as well as pacemaker insertion by Dr. Landaverde. If she improves plan was for a cardiac ablation, she however is developed extensive weight gain of 16 pounds with progressive shortness of breath and extensive bilateral lower extremity edema. Evidence of recurrent in worsening congestive heart failure and cancer she was admitted to hospital. She was seen by her restaurant host/hostess she evidence of significant shortness of breath and great difficulties with urinary retention and consequently her ultrasound was performed revealing evidence of large volume urinary retention because she was admitted to hospital. The catheters placed and she is receiving diuretic therapy with significant improvement of her shortness of breath pulse ox is at the 94% on room air at this time. There is concerned she urinary infection as well as etiology of the urinary obstruction. She's been seen by urology evaluation is in process as to the etiology of the urinary retention. The patient is developed a significant bilateral lower extremity edema with significant erythema especially in the dorsum of the left foot 05/28/2018 patient is feeling somewhat better today. With the extensive diuresis her edema has improved. Urinary retention has currently resolved. 05/27/2018 patient continues to have improvement. Her diuresis has been extensive and is louder to feel quite well. The lower extremity edema is generally resolved and she is quite surprised with how much better she is doing. She is denying fevers or chills. She is denying other acute symptoms. Objective - Vital Signs Vital signs: Vital Signs Temp 97.7 F 05/29/18 20:00 Pulse 92 05/29/18 20:29 Resp 18 05/29/18 20:00 BP 128/56 05/29/18 20:00 Pulse Ox 91 L 05/29/18 20:00 Intake & Output 05/29/18 05/29/18 05/30/18 06:59 18:59 06:59 Intake Total 210 660 Output Total 3825 Balance -5001 660 Weight 89.3 kg Intake: Intake, IV Titration 210 Amount Bumetanide 12 mg In 210 Dextrose 5% in Water 192 ml @ 1 MG/HR 20 mls/hr IV .Q12H ОЛЕГ Rx#:[id number] Oral 660 Output: Urine 3825 Other: Voiding Method Indwelling Catheter Indwelling Catheter Indwelling Catheter # Bowel Movements 1 - Exam pleasant 82-year-old woman who apparently is improved much less short of breath HEENT: Anicteric conjunctiva are pink and moist nasal mucosa grossly intact without significant lesions, there is no thrush. Neck: The neck is supple without significant lymphadenopathy or thyromegaly. Lungs: they're symmetrical bilaterally entry, evidence of basilar crackles but no quita bronchial sounds are noted no dullness or egophony Heart: irregular irregular with an audible S4. There is no significant murmur click or rub, PMI was nondisplaced. Abdomen: mildly obese,Positive bowel sounds soft and nontender without palpable masses or organomegaly. There was no guarding or rebound. Extremities: the upper extremity show evidence of some flaccidity to the tissue but no significant open lesions are seen, IV site left arm is tender without erythema The lower extremities show evidence of the extensive bilateral extremities edema that's improving as noted by the deep and extensive linear wrinkles that have developed with diuresis and mild compressionthere are no quita open ulcers at this time. The left foot is quite tender to touch. Neuro: Awake alert oriented to person place and time. There are no acute new gross focal sensory motor deficits. - Labs CBC & Chem 7: 05/29/18 05:03 05/29/18 05:03 Labs: Abnormal Lab Results - Last 24 Hours (Table) 05/29/18 05/29/18 Range/Units 05:03 05:03 RBC 3.59 L (3.80-5.40) m/uL Hgb 11.3 L (11.4-16.0) gm/dL Potassium 3.0 L (3.5-5.1) mmol/L Chloride 96 L (98-107) mmol/L Carbon Dioxide 40 H (22-30) mmol/L BUN 27 H (7-17) mg/dL Calcium 7.9 L (8.4-10.2) mg/dL Magnesium 1.5 L (1.6-2.3) mg/dL Total Protein 5.0 L (6.3-8.2) g/dL Albumin 2.3 L (3.5-5.0) g/dL Microbiology - Last 24 Hours (Table) 05/25/18 19:10 Blood Culture - Preliminary Blood No Growth after 96 hours 05/26/18 12:50 Urine Culture - Final Urine,Catheterized Escherichia coli Laboratory Results WBC 6.5 k/uL (3.8-10.6) 05/29/18 05:03 RBC 3.59 m/uL (3.80-5.40) L 05/29/18 05:03 Hgb 11.3 gm/dL (11.4-16.0) L 05/29/18 05:03 Hct 35.5 % (34.0-46.0) 05/29/18 05:03 MCV 98.9 fL (80.0-100.0) 05/29/18 05:03 MCH 31.6 pg (25.0-35.0) 05/29/18 05:03 MCHC 31.9 g/dL (31.0-37.0) 05/29/18 05:03 RDW 14.8 % (11.5-15.5) 05/29/18 05:03 Plt Count 173 k/uL (150-450) 05/29/18 05:03 Neutrophils % 62 % 05/29/18 05:03 Lymphocytes % 24 % 05/29/18 05:03 Monocytes % 7 % 05/29/18 05:03 Eosinophils % 6 % 05/29/18 05:03 Basophils % 1 % 05/29/18 05:03 Neutrophils # 4.0 k/uL (1.3-7.7) 05/29/18 05:03 Lymphocytes # 1.6 k/uL (1.0-4.8) 05/29/18 05:03 Monocytes # 0.4 k/uL (0-1.0) 05/29/18 05:03 Eosinophils # 0.4 k/uL (0-0.7) 05/29/18 05:03 Basophils # 0.0 k/uL (0-0.2) 05/29/18 05:03 Macrocytosis Slight 05/29/18 05:03 PT 12.3 sec (9.0-12.0) H 05/25/18 19:10 INR 1.3 (<1.2) H 05/25/18 19:10 APTT 22.8 sec (22.0-30.0) 05/25/18 19:10 Sodium 139 mmol/L (137-145) 05/29/18 05:03 Potassium 3.0 mmol/L (3.5-5.1) L 05/29/18 05:03 Chloride 96 mmol/L (98-107) L 05/29/18 05:03 Carbon Dioxide 40 mmol/L (22-30) H 05/29/18 05:03 Anion Gap 3 mmol/L 05/29/18 05:03 BUN 27 mg/dL (7-17) H 05/29/18 05:03 Creatinine 0.94 mg/dL (0.52-1.04) 05/29/18 05:03 Est GFR (CKD-EPI)AfAm 66 (>60 ml/min/1.73 sqM) 05/29/18 05:03 Est GFR (CKD-EPI)NonAf 57 (>60 ml/min/1.73 sqM) 05/29/18 05:03 Glucose 95 mg/dL (74-99) 05/29/18 05:03 Calcium 7.9 mg/dL (8.4-10.2) L 05/29/18 05:03 Magnesium 1.5 mg/dL (1.6-2.3) L 05/29/18 05:03 Total Bilirubin 0.7 mg/dL (0.2-1.3) 05/29/18 05:03 AST 19 U/L (14-36) 05/29/18 05:03 ALT 31 U/L (9-52) 05/29/18 05:03 Alkaline Phosphatase 59 U/L (38-126) 05/29/18 05:03 Total Creatine Kinase <20 U/L (30-135) L 05/25/18 19:10 CK-MB (CK-2) 0.6 ng/mL (0.0-2.4) 05/25/18 19:10 CK-MB (CK-2) Rel Index 05/25/18 19:10 Troponin I <0.012 ng/mL (0.000-0.034) 05/25/18 19:10 NT-Pro-B Natriuret Pep 4280 pg/mL 05/25/18 19:10 Total Protein 5.0 g/dL (6.3-8.2) L 05/29/18 05:03 Albumin 2.3 g/dL (3.5-5.0) L 05/29/18 05:03 TSH 1.110 mIU/L (0.465-4.680) 05/26/18 06:54 Urine Color Yellow 05/25/18 20:18 Urine Appearance Cloudy (Clear) H 05/25/18 20:18 Urine pH 5.5 (5.0-8.0) 05/25/18 20:18 Ur Specific [place] 1.011 (1.001-1.035) 05/25/18 20:18 Urine Protein Negative (Negative) 05/25/18 20:18 Urine Glucose (UA) Negative (Negative) 05/25/18 20:18 Urine Ketones Negative (Negative) 05/25/18 20:18 Urine Blood Negative (Negative) 05/25/18 20:18 Urine Nitrite Negative (Negative) 05/25/18 20:18 Urine Bilirubin Negative (Negative) 05/25/18 20:18 Urine Urobilinogen <2.0 mg/dL (<2.0) 05/25/18 20:18 Ur Leukocyte Esterase Large (Negative) H 05/25/18 20:18 Urine RBC 1 /hpf (0-5) 05/25/18 20:18 Urine WBC 23 /hpf (0-5) H 05/25/18 20:18 Urine WBC Clumps Occasional /hpf (None) H 05/25/18 20:18 Ur Squamous Epith Cells <1 /hpf (0-4) 05/25/18 20:18 Urine Bacteria Occasional /hpf (None) H 05/25/18 20:18 Hyaline Casts 3 /lpf (0-2) H 05/25/18 20:18 Urine Mucus Rare /hpf (None) H 05/25/18 20:18 Microbiology 05/25/18 19:10 Blood Blood Culture - Preliminary No Growth after 96 hours 05/26/18 12:50 Urine,Catheterized Urine Culture - Final Escherichia coli Assessment and Plan (1) Congestive heart failure Current Visit: Yes Status: Acute Code(s): I50.9 - HEART FAILURE, UNSPECIFIED SNOMED Code(s): 17309161 (2) Bilateral lower extremity edema Narrative/Plan: Pleasant 82-year-old female that presents to the emergency center after being evaluated by her restaurant host/hostess. She had evidence of extensive volume overload with lower extremity edema and cellulitis. Also evidence of worsening congestive heart failure with atrial fibrillation that was not well controlled. Also concerns to urinary retention. She consequently had a Saucedo catheter placed and is now had excellent diuresis. There is evidence of some improvement of the lower extremity edema but continues to have a significant swelling and erythema to the left foot. Concerns for cellulitis at this area. Patient also had the urinary retention and likely has urinary infection current culture showing evidence of the gram-negative bacilli. Patient has been given a dose of levofloxacin however she is also on multaq in there can be a significant interaction and constantly will discontinue the Levaquin. For now we'll utilize daptomycin with Azactam for the cellulitis and the urinary tract infection. We'll continue current supportive care and monitor her edema. If she improves we'll do well to have compression stockings available from awakening to going to bed which likely will help the edema. She likely will need a 2 layer stocking so she can tolerate them better. 05/28/2018 the H and is he had some improvement in the last day. With diuresis her edema is improved in the lower extremities improved. There is evidence of the gram-negative bacilli in the urine culture she is currently on Azactam and her multiple ALLERGIES and her drug drug interaction issues. Once final identification available we'll hopefully be able to offer an oral alternative to her current medications. Continue with elevation wraps. In is noted for discharge hopefully can use some wraps and then get her into a 2 layer stocking system she will be able to have tolerance for for long-term. 05/29/2018 patient has had further improvement. Her cardiac dysrhythmia is improved per cardiology. Her lower extremity edema is under excellent control at this time. She has had extensive diuresis with the Bumex drip has now been converted to oral. She is feeling considerably better. Urinary retention has been problematic and has Saucedo catheter in place. It appears that they will do a trial of catheter removal in the morning and monitor her ability to urinate spontaneously afterwards. She may need to go home with Saucedo catheter in place. Antibiotic therapy will be altered to doxycycline 100 mg orally twice per day for 7 days at discharge. Current Visit: Yes Status: Acute Code(s): R60.0 - LOCALIZED EDEMA SNOMED Code(s): 292980196 (3) Cellulitis of left foot Current Visit: Yes Status: Acute Code(s): L03.116 - CELLULITIS OF LEFT LOWER LIMB SNOMED Code(s): 358404633
[2018-05-30] MEDS: PANTOPRAZOLE 40 MG TABLET PO SCH (06:41)
[2018-05-30 07:05] LABS: Basophils % (A) 1 %; Eosinophils # (A) 0.3 k/uL (0-0.7); Eosinophils % (A) 6 %; HCT 35.6 % (34.0-46.0); HGB 11.2 gm/dL (11.4-16.0); Hypochromasia Slight; Lymphocytes # (A) 1.8 k/uL (1.0-4.8); Lymphocytes % (A) 30 %; MCH 31.3 pg (25.0-35.0); MCHC 31.3 g/dL (31.0-37.0); MCV 99.8 fL (80.0-100.0); Macrocytosis Slight; Mean Platelet Volume 7.7; Monocytes # (A) 0.4 k/uL (0-1.0); Monocytes % (A) 7 %; Neutrophils # (A) 3.2 k/uL (1.3-7.7); Neutrophils % (A) 53 %; Platelet Count 191 k/uL (150-450); RBC 3.57 m/uL (3.80-5.40); RDW 14.7 % (11.5-15.5)
[2018-05-30 07:20] LABS: Albumin 2.2 g/dL (3.5-5.0); Calcium 7.9 mg/dL (8.4-10.2); Total Bilirubin 0.9 mg/dL (0.2-1.3)
[2018-05-30 07:27] LABS: Potassium 3.9 mmol/L (3.5-5.1)
[2018-05-30] MEDS: AZTREONAM 1 GM in SODIUM CHLORIDE 0.9% 50 ML IVPB SCH ×3 (07:32→22:59)
[2018-05-30] MEDS: CHOLECALCIFEROL 1,000 UNIT TAB PO SCH (07:32)
[2018-05-30] MEDS: BUMETANIDE 1 MG TAB PO SCH ×2 (07:32→17:17)
[2018-05-30] MEDS: ASCORBIC ACID 500 MG TAB PO SCH (07:33)
[2018-05-30] MEDS: APIXABAN 2.5 MG TABLET PO SCH ×2 (07:33→19:49)
[2018-05-30] MEDS: GABAPENTIN 300 MG CAP PO SCH ×2 (07:33→19:49)
[2018-05-30] MEDS: METOPROLOL TARTRATE 50 MG TAB PO SCH ×2 (07:33→19:49)
[2018-05-30] MEDS: SPIRONOLACTONE 25 MG TAB PO SCH ×2 (07:33→19:49)
[2018-05-30] MEDS: IPRATROPIUM-ALBUTEROL 3 ML NEB INHALATION SCH ×4 (07:54→19:51)
[2018-05-30] MEDS: BUDESONIDE 0.5 MG/2 ML NEBU INHALATION SCH ×2 (07:54→19:52)
--- NOTE | 2018-05-30 10:36 | P.PN ---
Subjective Progress Note Date: 05/30/18 This is a 82-year-old female patient follows with Dr. Holliday on a regular basis in the office. She presented to the hospital with increasing shortness of breath and was diagnosed with acute on chronic diastolic heart failure. Chest x-ray on admission showed pulmonary interstitial fibrotic changes and some left upper lobe pneumonia. The patient underwent device interrogation with reprogramming, cardioversion for A. fib and AV node ablation/ modification. The patient is doing well this morning. Denies chest discomfort or shortness of breath. She does have some expiratory wheezes on forced exhalation. Continues to have lower extremity edema. Potassium is 3.0 this morning and spleen replaced. 05/30/2018 the patient is doing well this morning. Her breathing is back to baseline. She still has some lower extremity edema but it has improved. Denies any chest discomfort, shortness of breath at rest or palpitations. Remains in a normal sinus mechanism. She is hemodynamically stable. Objective - Vital Signs Vital signs: Vital Signs Temp 97.7 F 05/30/18 07:48 Pulse 90 05/30/18 08:08 Resp 18 05/30/18 07:48 BP 133/73 05/30/18 07:48 Pulse Ox 95 05/30/18 07:54 Intake & Output 05/29/18 05/30/18 05/30/18 18:59 06:59 18:59 Intake Total 660 570 Output Total 750 75 Balance 660 -180 -75 Weight 86 kg Intake: IV 50 Aztreonam 1 gm In Sodium 50 Chloride 0.9% 50 ml @ 100 mls/hr IVPB Q8HR ОЛЕГ Rx# :[id number] Intake, IV Titration 220 Amount Sodium Chloride 0.9% 1, 220 000 ml @ 20 mls/hr IV . Q24H ОЛЕГ Rx#:[id number] Oral 660 300 Output: Urine 750 75 Uretheral (Saucedo) 75 Other: Voiding Method Indwelling Catheter Indwelling Catheter # Bowel Movements 1 - Exam - Constitutional General appearance: Present: average body habitus - EENT Eyes: Present: normal appearance - Respiratory Respiratory: bilateral: diminished (Posteriorly at the basis), wheezing (On forced expiration), prolonged expiration - Cardiovascular Rhythm: regular Abnormal Heart Sounds: Present: systolic murmur - Peripheral edema leg Peripheral Edema: bilateral: 2+ - Gastrointestinal General gastrointestinal: Present: normal bowel sounds - Neurologic Neurologic: Present: CNII-XII intact - Labs CBC & Chem 7: 05/30/18 06:04 05/30/18 06:04 Labs: Abnormal Lab Results - Last 24 Hours (Table) 05/30/18 05/30/18 Range/Units 06:04 06:04 RBC 3.57 L (3.80-5.40) m/uL Hgb 11.2 L (11.4-16.0) gm/dL Carbon Dioxide 33 H (22-30) mmol/L BUN 29 H (7-17) mg/dL Calcium 7.9 L (8.4-10.2) mg/dL Total Protein 5.0 L (6.3-8.2) g/dL Albumin 2.2 L (3.5-5.0) g/dL Microbiology - Last 24 Hours (Table) 05/25/18 19:10 Blood Culture - Preliminary Blood No Growth after 96 hours Assessment and Plan Assessment: symptomatic paroxysmal atrial fibrillation status post AV node modification Diastolic heart failure, acute on chronic COPD Recent pacemaker implantation Hypertension Lower extremity edema Plan: Continue with current medication regimen. No changes have been made today. Continue strict I&O and daily weights. Potassium has normalized with replacement yesterday. Patient will be paced at a rate of 90 bpm for the next 2 weeks. We will continue to follow her closely. Nurse practitioner note has been reviewed, agree with the documented findings and plan of care. Patient was seen and examined.
[2018-05-30] MEDS: SILVER sulfADIAZINE Cream 400 GM 1 APPLIC APPLIC TOPICAL SCH (11:54)
--- NOTE | 2018-05-30 13:18 | PN ---
PROGRESS NOTE DATE OF SERVICE: 05/30/2018. She has been hemodynamically stable. She is less short of breath. PHYSICAL EXAMINATION: Her blood pressure is 133/70, respiratory rate of 18, pulse rate of 92, temperature 97.7, O2 saturation on 2 L by nasal cannula is 95%. HEENT: Unremarkable. Chest reveals expiratory wheeze. Cardiovascular system reveals an S1, S2. ABDOMEN: Soft. There is 1+ pedal edema. LABS: Reveal a white count of 6, hemoglobin of 11.2. Sodium 137, potassium 3.9, chloride 98, bicarb 33, BUN 29, creatinine of 0.92. IMPRESSION: At this time: 1. Acute hypoxic respiratory failure secondary to congestive heart failure. 2. Left upper lobe pneumonia. 3. Asthma with acute exacerbation. 4. Chronic obstructive pulmonary disease. 5. Cellulitis. 6. Urinary tract infection. Continue current medications. Increase her activity level. Agree with possible discharge planning with close outpatient followup. MMODL / ANNE MARIEN: [id number] /
--- NOTE | 2018-05-30 13:27 | P.PN ---
Subjective Progress Note Date: 05/30/18 This is a 82-year-old female who presented to the emergency room with implant of increased peripheral edema and urinary retention. Patient has been currently residing at [facility] for physical therapy post hospitalization 1 month ago for CHF and pacemaker placement. Patient has a known past medical history of paroxysmal atrial fibrillation which she takes eliquis, asthma, heart failure, COPD, hypertension, thyroid disorder and permanent pacemaker and AICD placement in April 2018. Chest x-ray completed emergency room showing pulmonary interstitial fibrotic changes. There is some left upper lobe pneumonia that is new compared to last exam. There are fibrotic changes at the lung apices. There is no seen pleural fluid to suggest heart failure. Heart is not enlarged. EKG completed showing normal sinus rhythm. Urinary analysis completed showing large amount of leukocyte Estrace. Urine culture has been ordered. Right foot is erythema and tender to touch. Patient started vancomycin for possible cellulitis. Patient started on IV Bumex 1 mg twice a day. Cardiology services consulted. Patient sees Dr. Oreilly outpatient pulmonary services. Dr. Oreilly consulted. Patient having issues with urinary retention over the past week. Saucedo catheter placed and urology consulted. Patient denies chest pain. Patient does state she is having some shortness of breath with activity. Patient denies nausea vomiting or diarrhea. Denies any urinary burning or frequency. 05/27/2018 patient lying in bed comfortably. She just underwent cardiac ablation. She went into atrial fibrillation with rapid ventricular response yesterday and through the evening. Heart rate got as high as 160. Patient also had her AICD interrogated at this time. Patient is currently in a paced rhythm. Medications have been adjusted per cardiology. Verapamil, Multaq, digoxin has been discontinued. Metoprolol decreased to 50 mg twice a day. Patient seen by infectious disease. Antibiotics have been adjusted she is currently on daptomycin and Azactam for the cellulitis and UTI 05/28/2018 patient underwent cardiac ablation yesterday. Currently in a paced rhythm. Was started on Bumex drip yesterday per cardiology. Patient's shortness of breath and lower extremity showing improvement. Potassium is being replaced. She is asking about Hamshire for pain medication and it is on her medication list. She denies any chest pain. Shortness of breath improving. Denies any nausea or vomiting. Reports having bowel movements. She is asking when her Saucedo catheter can be removed. Bumex drip started yesterday we'll continue with Saucedo catheter for now On 05/30/2018 patient is alert and oriented 3 in no apparent distress she is off the Bumex drip and is maintained on Bumex 1 mg twice daily she is doing well she was seen by development manager and was told that she needs to use oxygen 24 hours daily. Patient does not wish to return back to [facility] she wants to go back home with home care, will make arrangement for that tomorrow. Objective - Vital Signs Vital signs: Vital Signs Temp 97.6 F 05/30/18 12:18 Pulse 92 05/30/18 12:18 Resp 18 05/30/18 12:18 BP 130/70 05/30/18 12:18 Pulse Ox 96 05/30/18 12:18 Intake & Output 05/29/18 05/30/18 05/30/18 18:59 06:59 18:59 Intake Total 660 570 200 Output Total 750 75 Balance 660 -180 125 Weight 86 kg Intake: IV 50 Aztreonam 1 gm In Sodium 50 Chloride 0.9% 50 ml @ 100 mls/hr IVPB Q8HR ОЛЕГ Rx# :[id number] Intake, IV Titration 220 Amount Sodium Chloride 0.9% 1, 220 000 ml @ 20 mls/hr IV . Q24H ОЛЕГ Rx#:[id number] Oral 660 300 200 Output: Urine 750 75 Uretheral (Saucedo) 75 Other: Voiding Method Indwelling Catheter Indwelling Catheter # Bowel Movements 1 - Exam Head normocephalic Neck supple no JVD no goiter no lymphadenopathy Lungs clear to auscultation bilaterally no wheezing or crackles Heart regular rate and rhythm S1-S2, no rub or gallop Abdomen is soft nontender nondistended positive bowel sounds no hepatosplenomegaly Extremities legs are Abran wrapped bilaterally. +1 edema bilaterally Neuro alert and orientated to 3 - Labs CBC & Chem 7: 05/30/18 06:04 05/30/18 06:04 Labs: Abnormal Lab Results - Last 24 Hours (Table) 05/30/18 05/30/18 Range/Units 06:04 06:04 RBC 3.57 L (3.80-5.40) m/uL Hgb 11.2 L (11.4-16.0) gm/dL Carbon Dioxide 33 H (22-30) mmol/L BUN 29 H (7-17) mg/dL Calcium 7.9 L (8.4-10.2) mg/dL Total Protein 5.0 L (6.3-8.2) g/dL Albumin 2.2 L (3.5-5.0) g/dL Microbiology - Last 24 Hours (Table) 05/25/18 19:10 Blood Culture - Preliminary Blood No Growth after 96 hours Assessment and Plan Plan: 1. Acute on chronic diastolic congestive heart failure. BNP 4280. 2-D echo had shown normal EF on prior admission. Followed by cardiology. Patient started on IV Bumex drip yesterday 2. Urinary retention. Saucedo catheter placed. Seen by urology. The recommending to leave Saucedo catheter for 2-3 days before undergoing a voiding trial. We'll continue Saucedo catheter while patient is on a Bumex drip 3. Hypokalemia patient receiving potassium supplement 4. Cellulitis of the right foot. Blood culture has been ordered. Antibiotics per infectious disease 5. Urinary tract infection. Urine culture growing gram-negative bacilli. Continue antibiotics per infectious disease 6. Pneumonia ruled out. Findings most likely secondary to congestive heart failure exacerbation 7. History of paroxysmal atrial fibrillation. With episodes of rapid ventricular response heart rate as high as 160. Patient underwent cardiac ablation today is currently in a paced rhythm. Medications have been adjusted per cardiology. They have discontinue verapamil,multaq, and digoxin. Metoprolol decreased to 50 mg twice a day 8. History of COPD. Continue home medication. Pulmonary services following 9. Recent pacemaker implantation. 10. Essential hypertension 11. Acute kidney injury. Initial creatinine 1.25. Repeat 1.04. We'll continue to monitor closely 12. Chronic back pain. Patient states she takes Neurontin 300 mg twice a day but has only been on 100 mg. Neurontin has been increased to 300 twice a day. Hamshire when necessary for pain 13. Cannot exclude a new spiculated nodule in the right lower lobe noted on computed tomography scan of the chest. Pulmonary service following. DVT prophylaxis Eliquis and GI prophylaxis Protonix Continue physical therapy. Patient will return to [facility] when stable for discharge
[2018-05-30] MEDS: LATANOPROST 0.005% OPHTH DROPS 2.5 ML BTL RIGHT EYE SCH (19:48)
[2018-05-30] MEDS: MONTELUKAST 10 MG TAB PO SCH (19:49)
[2018-05-30] MEDS: DAPTOmycin 500 MG in SODIUM CHLORIDE 0.9% 50 ML IVPB SCH (21:15)
[2018-05-30] MEDS: SODIUM CHLORIDE 0.9% 1,000 ML IV SCH (23:14)
[2018-05-31 04:08] VITALS: TEMP 98.4
[2018-05-31] MEDS: PANTOPRAZOLE 40 MG TABLET PO SCH (06:25)
[2018-05-31 06:27] LABS: Basophils % (A) 0 %; Eosinophils # (A) 0.3 k/uL (0-0.7); Eosinophils % (A) 7 %; HCT 33.1 % (34.0-46.0); HGB 10.8 gm/dL (11.4-16.0); Hypochromasia Slight; Lymphocytes # (A) 1.6 k/uL (1.0-4.8); Lymphocytes % (A) 32 %; MCH 31.8 pg (25.0-35.0); MCHC 32.7 g/dL (31.0-37.0); MCV 97.1 fL (80.0-100.0); Mean Platelet Volume 7.9; Monocytes # (A) 0.3 k/uL (0-1.0); Monocytes % (A) 6 %; Neutrophils # (A) 2.6 k/uL (1.3-7.7); Neutrophils % (A) 52 %; Platelet Count 216 k/uL (150-450); RBC 3.41 m/uL (3.80-5.40); RDW 14.6 % (11.5-15.5); WBC 4.9 k/uL (3.8-10.6)
[2018-05-31 06:43] LABS: Albumin 2.2 g/dL (3.5-5.0); Calcium 8.3 mg/dL (8.4-10.2); Potassium 3.5 mmol/L (3.5-5.1); Total Bilirubin 0.6 mg/dL (0.2-1.3); Total Protein 4.8 g/dL (6.3-8.2)
[2018-05-31] MEDS: IPRATROPIUM-ALBUTEROL 3 ML NEB INHALATION SCH ×2 (07:37→11:47)
[2018-05-31] MEDS: BUDESONIDE 0.5 MG/2 ML NEBU INHALATION SCH (07:37)
[2018-05-31 08:32] VITALS: RESP 16
[2018-05-31] MEDS: AZTREONAM 1 GM in SODIUM CHLORIDE 0.9% 50 ML IVPB SCH (08:34)
[2018-05-31] MEDS: GABAPENTIN 300 MG CAP PO SCH (08:34)
[2018-05-31] MEDS: CHOLECALCIFEROL 1,000 UNIT TAB PO SCH (08:34)
[2018-05-31] MEDS: APIXABAN 2.5 MG TABLET PO SCH (08:34)
[2018-05-31] MEDS: SPIRONOLACTONE 25 MG TAB PO SCH (08:34)
[2018-05-31] MEDS: ASCORBIC ACID 500 MG TAB PO SCH (08:34)
[2018-05-31] MEDS: METOPROLOL TARTRATE 50 MG TAB PO SCH (08:34)
[2018-05-31] MEDS: BUMETANIDE 1 MG TAB PO SCH (08:34)
--- NOTE | 2018-05-31 10:11 | P.PN ---
<Albertina Pérez E - Last Filed: 05/31/18 10:08> Subjective Progress Note Date: 05/31/18 History of present illness: This is an 82-year-old female patient well-known to our services being seen examined and evaluated today on consultation. The patient came in to the emergency room from [facility] with complaints of shortness of breath that had been getting worse over the past few days as well as increase in her lower extremity edema. This patient was previously hospitalized from 04/28/2018 and discharged on 05/08/18, with CHF and A. fib, the patient did undergo a cardiac catheterization as well as a cardioversion during that addmission but the patient did go back into A. fib. The patient did undergo a pacemaker insertion as well during her last admission. She is being seen in the outpatient setting and is supposed to be scheduled with Dr. Espana for a cardiac ablation in a few weeks. Apparently at the [facility], the patient was experiencing shortness of breath, increased edema in the bilateral lower extremities and had some urinary retention for which she was straight cathed a few times for, as well as a 16 pound weight gain in the last few days. Upon evaluation in the emergency room the patient was also noted to have erythema and warmth over the dorsal aspect of each foot and miranda. She did have some superficial wounds/cellulitis to the dorsal aspect of each foot. Noted to have +3 lateral lower extremity edema. Chest x-ray was obtained and did show pulmonary interstitial fibrotic changes with some left upper lobe pneumonia that was new compared to last exam as well as fibrotic changes in the lung apices. She was also noted to be hypoxic and did require 2 L of supplemental oxygen via nasal cannula. Hernandez catheter was inserted for urinary retention and she was admitted for further evaluation and workup. Upon examination today the patient is resting up in bed on 2 L of supplemental oxygen via nasal cannula. She does have bilateral Abran wraps on her legs. She does have some shortness of breath with exertion, does complain of some intermittent congested cough no sputum production. She has had good output from her Hernandez catheter. Urinalysis is positive for UTI, culture pending. Cardiology is on consult for seeing the patient. Daughter is at bedside and updated on plan of care. Interval history: 05/27/2018patient is being seen examined and evaluated today on rounds. She is resting up in bed on 2 L of supplemental oxygen. The patient states she has had some increase in her shortness of breath overnight. She also was noted to have a rhythm change and went into A. fib with RVR overnight. The patient is scheduled to go for her ablation today with Dr. Espana. Her potassium was noted to be 3.2 and is being replaced. Infectious disease did see her yesterday and adjusted her antibiotics. She was also seen by urology and have recommended the patient maintain the Hernandez for couple more days. She has had been having good output and diuresing well with the Bumex. Afebrile no further complaints 05/28/18- patient is being seen examined and evaluated today on rounds. She did undergo a cardiac ablation yesterday please see procedure notes for that. She was initiated on a Bumex drip yesterday and has been diuresing well. She still has the Hernnadez catheter. She is on 2 L of supplemental oxygen via nasal cannula. She does get short of breath with exertion and activity, feels breathing treatments help. 05/29/18-05/30/18- Please see Dr MANNIE Davis notes 05/31/18- patient is being seen examined and evaluated today on rounds. She is resting up in bed on 2 L of supplemental oxygen via nasal cannula. She is being prepared for possible discharge today. She will undergo a home oxygen assessment prior to discharge to see if she qualifies for oxygen. She does have a follow-up appointment already scheduled. Her children are at bedside and updated on plan of care. No further complaints. Objective - Vital Signs Vital signs: Vital Signs Temp 98.4 F 05/31/18 08:26 Pulse 53 L 05/31/18 08:26 Resp 16 05/31/18 08:26 BP 158/77 05/31/18 08:26 Pulse Ox 93 L 05/31/18 08:26 Intake & Output 05/30/18 05/31/18 05/31/18 18:59 06:59 18:59 Intake Total 550 250 150 Output Total 875 800 Balance -325 -550 150 Weight 89.5 kg Intake: Oral 550 250 150 Output: Urine 875 800 Uretheral (Hernandez) 75 300 Other: Voiding Method Indwelling Catheter Indwelling Catheter Indwelling Catheter # Bowel Movements 2 - Exam GENERAL EXAM: Alert, comfortable in no apparent distress. HEAD: Normocephalic. EYES: Normal reaction of pupils, equal size. NOSE: Clear with pink turbinates. THROAT: No erythema or exudates. NECK: No masses, no JVD. CHEST: No chest wall deformity. LUNGS: Lung sounds noted to be diminished with a faint expiratory wheeze. Bases diminished CVS: S1 and S2 normal with no audible mumurs, regular rhythm. ABDOMEN: No hepatosplenomegaly, normal bowel sounds, no guarding or rigidity. EXTREMITIES: +1 edema noted, improving. Patient noted to have some bilateral erythema and warmth as well as signs of cellulitis CENTRAL NERVOUS SYSTEM: No focal deficits, tone is normal in all 4 extremities. - Labs CBC & Chem 7: 05/31/18 05:48 05/31/18 05:48 Labs: Abnormal Lab Results - Last 24 Hours (Table) 05/31/18 05/31/18 Range/Units 05:48 05:48 RBC 3.41 L (3.80-5.40) m/uL Hgb 10.8 L (11.4-16.0) gm/dL Hct 33.1 L (34.0-46.0) % Chloride 97 L (98-107) mmol/L Carbon Dioxide 38 H (22-30) mmol/L BUN 23 H (7-17) mg/dL Calcium 8.3 L (8.4-10.2) mg/dL Total Protein 4.8 L (6.3-8.2) g/dL Albumin 2.2 L (3.5-5.0) g/dL Microbiology - Last 24 Hours (Table) 05/25/18 19:10 Blood Culture - Preliminary Blood No Growth after 120 hours Assessment and Plan Assessment: Assessment Acute hypoxic respiratory failure Acute exacerbation of CHF Possible left upper lobe pneumonia Acute exacerbation of COPD Chronic moderate to severe persistent asthma not acutely exacerbated Lower extremity edema Bilateral lower extremity cellulitis Present on admission UTI Urinary retention Moderate protein calorie malnutrition Obesity History of Paroxysmal atrial fibrillation A. fib with RVR Plan Agree with discharge planning patient has follow-up appointment already made with our office Medications reviewed and will be continued as ordered Home oxygen assessment to be completed prior to discharge S/p cardiac ablation Cultures pending Bumex for diuresis Antibiotics O2 to maintain saturation greater than or equal to 90% Duo nebs and Pulmicort Singulair Monitor I's and O's Daily weights Cardiology recommendations Incentive spirometry and pulmonary hygiene Increase activity as tolerated PT and OT GI and DVT prophylaxis We will continue to follow labs/reports and adjust treatment as necessary I performed an examination of the patient and discussed their management with the nurse practitioner. I have reviewed the nurse practitioner's note and agree with the documented findings and plan of care. <EmilyjacintoLinette A - Last Filed: 05/31/18 13:54> Objective - Vital Signs Vital signs: Vital Signs Temp 98.4 F 05/31/18 08:26 Pulse 93 05/31/18 12:00 Resp 16 05/31/18 12:00 BP 141/67 05/31/18 12:00 Pulse Ox 95 05/31/18 12:00 Intake & Output 05/30/18 05/31/18 05/31/18 18:59 06:59 18:59 Intake Total 550 250 150 Output Total 875 800 Balance -325 -550 150 Weight 89.5 kg Intake: Oral 550 250 150 Output: Urine 875 800 Uretheral (Hernandez) 75 300 Other: Voiding Method Indwelling Catheter Indwelling Catheter Indwelling Catheter # Bowel Movements 2 - Labs CBC & Chem 7: 05/31/18 05:48 05/31/18 05:48 Labs: Abnormal Lab Results - Last 24 Hours (Table) 05/31/18 05/31/18 Range/Units 05:48 05:48 RBC 3.41 L (3.80-5.40) m/uL Hgb 10.8 L (11.4-16.0) gm/dL Hct 33.1 L (34.0-46.0) % Chloride 97 L (98-107) mmol/L Carbon Dioxide 38 H (22-30) mmol/L BUN 23 H (7-17) mg/dL Calcium 8.3 L (8.4-10.2) mg/dL Total Protein 4.8 L (6.3-8.2) g/dL Albumin 2.2 L (3.5-5.0) g/dL Microbiology - Last 24 Hours (Table) 05/25/18 19:10 Blood Culture - Preliminary Blood No Growth after 120 hours Assessment and Plan Assessment: Patient seen and examined. Patient states that she is disappointed because she can't go home and needs to go back to rehab. She states her oxygen did go down to 82% with exertion today. She will be discharged with oxygen. The patient has bilateral expiratory wheezing. We will add prednisone. Continue breathing treatments. Continue diuresis. Hernandez catheter was discontinued and patient did have urinary retention and therefore was replaced. Plan is to discharge with hernandez in place. Discharge with Prednisone taper, Ainsley Connelly Singulair for now. ~Linette Oreilly,
--- NOTE | 2018-05-31 11:31 | P.PN ---
Subjective Progress Note Date: 05/31/18 This is an 82-year-old female who follows regularly with Dr. Holliday in the office. She has known history of hypertension,, paroxysmal atrial fibrillation, was recently in the hospital in April with congestive heart failure exacerbation, patient also underwent implantation of a permanent pacemaker by Dr. Espana as scheduled in June 25 undergo ablation of her atrial fibrillation. She has been staying at rehab at [facility], she states that she's been having significant difficulty in urinating and has been retaining a lot of fluid. She's been more short of breath than usual as well. For these reasons she came to the emergency room for further evaluation. Chest x-ray on admission here showed pulmonary interstitial fibrotic changes with some left upper lobe pneumonia as compared with prior exam, fibrotic changes in the lung apices. EKG shows a normal sinus rhythm with no acute changes. Blood pressure on arrival here 150/70 with a heart rate in the 70s, 95% on room air. White blood cell count is normal, hemoglobin 11.7, platelet count 170. Sodium 140, potassium 3.7, BUN 24, creatinine 1.0. Troponin is normal, BNP level 4280. Patient was initiated on IV Bumex in the emergency room, and has been diuresing well. She did have an echocardiogram with Doppler study performed in April of this year which revealed normal left ventricular systolic function. Patient is currently on Eliquis 2-1/2 mg twice a day, Bumex 1 mg IV twice a day, metoprolol 100 mg by mouth 3 times a day and verapamil 40 3 times a day. She has also been initiated on IV antibiotics. 05/31/2018 Patient did undergo a device interrogation with reprogramming, cardioversion for A. fib and AV node ablation. Seen and examined this morning, overall doing well. Breathing is stable. Continues to have a Saucedo catheter in because she' s having some difficulty with urination. Bilateral lower extremity edema has improved significantly from admission here. Objective - Vital Signs Vital signs: Vital Signs Temp 98.4 F 05/31/18 08:26 Pulse 53 L 05/31/18 08:26 Resp 16 05/31/18 08:26 BP 158/77 05/31/18 08:26 Pulse Ox 93 L 05/31/18 08:26 Intake & Output 05/30/18 05/31/18 05/31/18 18:59 06:59 18:59 Intake Total 550 250 150 Output Total 875 800 Balance -325 -550 150 Weight 89.5 kg Intake: Oral 550 250 150 Output: Urine 875 800 Uretheral (Saucedo) 75 300 Other: Voiding Method Indwelling Catheter Indwelling Catheter Indwelling Catheter # Bowel Movements 2 - Exam PHYSICAL EXAMINATION: GENERAL: 82-year-old female in no acute distress at the time of examination HEENT: Head is atraumatic, normocephalic. Pupils equal, round. Sclera anicteric. Conjunctiva are clear. Mucous membranes of the mouth are moist. Neck is supple. There is elevated jugular venous pressure. No carotid bruit is heard. HEART EXAMINATION: [Heart S1 and S2 systolic murmur is heard. CHEST EXAMINATION:[ Lungs are clear to auscultation. ABDOMEN: [Soft, nontender. Bowel sounds are heard. No organomegaly noted] EXTREMITIES:[. 2+ peripheral pulses with trace evidence of peripheral edema , bilateral Abran wraps in place NEUROLOGIC [patient is awake, alert and oriented X3. - Labs CBC & Chem 7: 05/31/18 05:48 05/31/18 05:48 Labs: Abnormal Lab Results - Last 24 Hours (Table) 05/31/18 05/31/18 Range/Units 05:48 05:48 RBC 3.41 L (3.80-5.40) m/uL Hgb 10.8 L (11.4-16.0) gm/dL Hct 33.1 L (34.0-46.0) % Chloride 97 L (98-107) mmol/L Carbon Dioxide 38 H (22-30) mmol/L BUN 23 H (7-17) mg/dL Calcium 8.3 L (8.4-10.2) mg/dL Total Protein 4.8 L (6.3-8.2) g/dL Albumin 2.2 L (3.5-5.0) g/dL Microbiology - Last 24 Hours (Table) 05/25/18 19:10 Blood Culture - Preliminary Blood No Growth after 120 hours Assessment and Plan Plan: Assessment and plan #1 congestive heart failure, diastolic, acute on chronic #2 COPD #3 paroxysmal atrial fibrillation, on Eliquis for anticoagulation, patient scheduled for an ablation in June #4 recent pacemaker implantation #5 hypertension #6 prior history of smoking #7 significant bilateral lower extremity edema with possible cellulitis Plan From cardiology's perspective, patient may be able to be discharged home today. Increase her dose of Bumex at 2 mg by mouth twice a day. Continue the rest of her medications. Follow-up appointment in the office post discharge. DNP note has been reviewed, I agree with a documented findings and plan of care. Patient was seen and examined.
[2018-05-31] MEDS: SILVER sulfADIAZINE Cream 400 GM 1 APPLIC APPLIC TOPICAL SCH (12:10)
[2018-05-31] MEDS ORDERED: POTASSIUM CHLORIDE ER 20 MEQ TAB.ER PO STA (12:28)
--- NOTE | 2018-05-31 12:36 | P.DS ---
Providers Date of admission: 05/25/18 21:23 Attending physician: Elham Kumar Consults: 05/25/18 19:59 Consult Physician Routine Consulting Provider: Gaston Trevizo Consult Reason/Comments: CHF; Edema Do you want consulting provider notified?: Yes 05/26/18 08:41 Consult Physician Routine Consulting Provider: Magnus Lee Consult Reason/Comments: urinary retention Do you want consulting provider notified?: Yes Consult Physician Routine Consulting Provider: Linette Oreilly Consult Reason/Comments: shortness of breath Do you want consulting provider notified?: Yes 05/26/18 10:15 Consult Physician Routine Consulting Provider: Jesús Bangura Consult Reason/Comments: cellulits, UTI and possible pneumonia. multiple drug allergies Do you want consulting provider notified?: Yes Primary care physician: [facility] Course: Discharge Diagnosis 1. Acute on chronic diastolic congestive heart failure. BNP 4280. 2-D echo had shown normal EF on prior admission. Followed by cardiology. Continue PMX 2 mg twice a day 2. Urinary retention. Saucedo catheter placed. Seen by urology. Failed voiding trial. Patient will continue with Saucedo catheter until seen by urology in the outpatient setting 3. Hypokalemia patient receiving potassium supplement 4. Cellulitis of the right foot. 5. Urinary tract infection. Continue doxycycline 100 mg twice a day for 7 days for both UTI and's 6. Pneumonia ruled out. Findings most likely secondary to congestive heart failure exacerbation 7. History of paroxysmal atrial fibrillation. With episodes of rapid ventricular response heart rate as high as 160. Patient underwent cardiac ablation today is currently in a paced rhythm. Medications have been adjusted per cardiology. They have discontinue verapamil,multaq, and digoxin. Metoprolol decreased to 50 mg twice a day 8. History of COPD. Continue home medication. Pulmonary services following 9. Recent pacemaker implantation. 10. Essential hypertension 11. Acute kidney injury. Creatinine has normalized 12. Chronic back pain. Patient states she takes Neurontin 300 mg twice a day but has only been on 100 mg. Neurontin has been increased to 300 twice a day. 13. Cannot exclude a new spiculated nodule in the right lower lobe noted on computed tomography scan of the chest. Pulmonary service following. 14. Acute COPD exacerbation treated with nebulizer treatments 15. Acute hypoxic respiratory failure secondary to CHF exacerbation and COPD exacerbation 16. Hypokalemia. Patient received potassium K-Dur 20 milliequivalents daily. Starting today. Potassium 3.5 17. Anemia: Likely iron deficiency anemia. Start ferrous sulfate 325 mg twice a day. Hemoglobin 10.8 hospital course This is a 82-year-old female who presented to the emergency room with implant of increased peripheral edema and urinary retention. Patient has been currently residing at [facility] for physical therapy post hospitalization 1 month ago for CHF and pacemaker placement. Patient has a known past medical history of paroxysmal atrial fibrillation which she takes eliquis, asthma, heart failure, COPD, hypertension, thyroid disorder and permanent pacemaker and AICD placement in April 2018. Chest x-ray completed emergency room showing pulmonary interstitial fibrotic changes. There is some left upper lobe pneumonia that is new compared to last exam. There are fibrotic changes at the lung apices. There is no seen pleural fluid to suggest heart failure. Heart is not enlarged. EKG completed showing normal sinus rhythm. Urinary analysis completed showing large amount of leukocyte Estrace. Urine culture has been ordered. Right foot is erythema and tender to touch. Patient started vancomycin for possible cellulitis. Patient started on IV Bumex 1 mg twice a day. Cardiology services consulted. Patient sees Dr. Oreilly outpatient pulmonary services. Dr. Oreilly consulted. Patient having issues with urinary retention over the past week. Saucedo catheter placed and urology consulted. Patient denies chest pain. Patient does state she is having some shortness of breath with activity. Patient denies nausea vomiting or diarrhea. Denies any urinary burning or frequency. 05/27/2018 patient lying in bed comfortably. She just underwent cardiac ablation. She went into atrial fibrillation with rapid ventricular response yesterday and through the evening. Heart rate got as high as 160. Patient also had her AICD interrogated at this time. Patient is currently in a paced rhythm. Medications have been adjusted per cardiology. Verapamil, Multaq, digoxin has been discontinued. Metoprolol decreased to 50 mg twice a day. Patient seen by infectious disease. Antibiotics have been adjusted she is currently on daptomycin and Azactam for the cellulitis and UTI 05/28/2018 patient underwent cardiac ablation yesterday. Currently in a paced rhythm. Was started on Bumex drip yesterday per cardiology. Patient's shortness of breath and lower extremity showing improvement. Potassium is being replaced. She is asking about Avalon for pain medication and it is on her medication list. She denies any chest pain. Shortness of breath improving. Denies any nausea or vomiting. Reports having bowel movements. She is asking when her Saucedo catheter can be removed. Bumex drip started yesterday we'll continue with Saucedo catheter for now On 05/30/2018 patient is alert and oriented 3 in no apparent distress she is off the Bumex drip and is maintained on Bumex 1 mg twice daily she is doing well she was seen by insurance salesperson and was told that she needs to use oxygen 24 hours daily. Patient does not wish to return back to [facility] for rehab she wants to go back home with home care, will make arrangement for that tomorrow. 05/31/2018 patient has been cleared by consulting physicians for discharge. Her lower extremity edema and cellulitis showing improvement. She'll continue doxycycline 100 mg twice a day for 7 days to complete treatment for her lower extremity cellulitis and UTI. Congestive heart failure exacerbation is also showing improvement. She was able to be switched over to oral Bumex over the weekend. Cardiology is recommending Bumex 2 mg twice a day. Patient be following up with consulting physicians in the outpatient setting. She will require home O2. Oxygen saturation had dropped down to 85% on room air. Also note during this admission patient did have a cardiac ablation. Cardiac medications adjusted per cardiology. The verapamil, digoxin and Multaq was discontinued during this admission. Metoprolol was decreased to 50 mg twice. Patient is medically stable for discharge. She has been cleared by consulting physicians. Physical therapy is recommending ECF placement for patient. She' ll return to [facility] for further rehab. Recommend checking BMP and CBC in 1 week I performed an examination of the patient and discussed their management with the physician Diesel Dinkey Engineer. I have reviewed the Physician Diesel Dinkey Engineer's notes and agree with the documented findings and plan of care Patient Condition at Discharge: Stable Plan - Discharge Summary Discharge Rx Participant: No New Discharge Prescriptions: New Doxycycline Monohydrate [Vibramycin] 100 mg PO BID #14 cap Bumetanide [BUMEX] 2 mg PO BID@0900,1600 #0 tab Gabapentin [Neurontin] 300 mg PO BID cap Metoprolol Tartrate [Lopressor] 50 mg PO BID tab SILVER sulfADIAZINE Cream [Silvadene 1% Cream] 1 applic TOPICAL DAILY 7 Days applic Spironolactone [Aldactone] 25 mg PO BID tab Ferrous Sulfate [Iron (65 MG Elemental)] 325 mg PO BID #60 tab Potassium Chloride ER [K-Dur 20] 20 meq PO DAILY #30 tab Continue Ranitidine HCl [Zantac] 150 mg PO BID PRN PRN Reason: Heartburn Calcium Carbonate [Tums] 500 - 1,000 mg PO TID PRN PRN Reason: Heartburn Ascorbic Acid [Vitamin C] 500 mg PO DAILY Claritin 12 Hour Reditabs 1 tab PO Q12H PRN PRN Reason: Allergy Symptoms Cholecalciferol (Vitamin D3) [Vitamin D3] 2,000 unit PO DAILY Carboxymethylcellulose Sodium [Refresh Tears] 1 - 2 drop BOTH EYES QID PRN PRN Reason: Dry Eye(S) Montelukast [Singulair] 10 mg PO HS Latanoprost [Xalatan 0.005%] 1 drop RIGHT EYE HS Ipratropium/Albuterol Sulfate [Combivent Respimat Inhaler] 1 puff INHALATION RT-QID PRN PRN Reason: Shortness Of Breath Fluticasone/Vilanterol [Breo Ellipta 200-25 Mcg INH] 1 puff INHALATION RT- DAILY Apixaban [Eliquis] 2.5 mg PO BID tablet Discontinued Bumetanide [BUMEX] 1 mg PO BID@0900,1600 tab Dronedarone [Multaq] 400 mg PO AC-BID tab Gabapentin [Neurontin] 100 mg PO BID cap Metoprolol Tartrate [Lopressor] 100 mg PO TID tab Verapamil [Isoptin] 40 mg PO TID tab HYDROcodone/APAP 5-325MG [Avalon 5-325] 1 tab PO Q4HR PRN PRN Reason: Pain Discharge Medication List Ascorbic Acid [Vitamin C] 500 mg PO DAILY 04/27/18 [History] Calcium Carbonate [Tums] 500 - 1,000 mg PO TID PRN 04/27/18 [History] Carboxymethylcellulose Sodium [Refresh Tears] 1 - 2 drop BOTH EYES QID PRN 04/27 [History] Cholecalciferol (Vitamin D3) [Vitamin D3] 2,000 unit PO DAILY 04/27/18 [History] Claritin 12 Hour Reditabs 1 tab PO Q12H PRN 04/27/18 [History] Fluticasone/Vilanterol [Breo Ellipta 200-25 Mcg INH] 1 puff INHALATION RT-DAILY 04/27/18 [History] Ipratropium/Albuterol Sulfate [Combivent Respimat Inhaler] 1 puff INHALATION RT- QID PRN 04/27/18 [History] Latanoprost [Xalatan 0.005%] 1 drop RIGHT EYE HS 04/27/18 [History] Montelukast [Singulair] 10 mg PO HS 04/27/18 [History] Ranitidine HCl [Zantac] 150 mg PO BID PRN 04/27/18 [History] Apixaban [Eliquis] 2.5 mg PO BID tablet 05/07/18 [Rx] Doxycycline Monohydrate [Vibramycin] 100 mg PO BID #14 cap 05/29/18 [Rx] Bumetanide [BUMEX] 2 mg PO BID@0900,1600 #0 tab 05/31/18 [Rx] Ferrous Sulfate [Iron (65 MG Elemental)] 325 mg PO BID #60 tab 05/31/18 [Rx] Gabapentin [Neurontin] 300 mg PO BID cap 05/31/18 [Rx] Metoprolol Tartrate [Lopressor] 50 mg PO BID tab 05/31/18 [Rx] Potassium Chloride ER [K-Dur 20] 20 meq PO DAILY #30 tab 05/31/18 [Rx] SILVER sulfADIAZINE Cream [Silvadene 1% Cream] 1 applic TOPICAL DAILY 7 Days applic 05/31/18 [Rx] Spironolactone [Aldactone] 25 mg PO BID tab 05/31/18 [Rx] Follow up Appointment(s)/Referral(s): Gaston Trevizo MD [STAFF PHYSICIAN] - 06/09/18 3:00 pm (Device clinic follow-up in 2 weeks post-AV junction modification for pacemaker reprogramming. No sooner Follow-up with Dr. Holliday in 4-6 weeks Device Clinic- 06/09/18 at 3:[address] Trevizo- 07/06/18 at 3:00 PM.) Linette Oreilly DO [Doctor of Osteopathic Medicine] - 06/08/18 3:30 pm ([address] [place], [place] Across from entrance of [facility].) Elham Kumar MD [Primary Care Provider] - 06/04/18 10:30 am Ambulatory/Diagnostic Orders: Basic Metabolic Panel [LAB.AMB] Time Frame: 1 Week, Location: None Selected Complete Blood Count w/diff [LAB.AMB] Time Frame: 1 Week, Location: None Selected Patient Instructions/Handouts: Cardiac Ablation (DC), Pacemaker (DC) Activity/Diet/Wound Care/Special Instructions: Follow-up in the device clinic within 2 weeks for pacemaker reprogramming With Dr. Trevizo within 4-6 weeks - Cardiology office notified 05/31/18 at 0834. ok to discharge to [facility], Dr. Kumar to follow at [facility] Discharge Disposition: TRANSFER TO SNF/F
[2018-05-31 12:40] VITALS: BP 141/67; PULSE 93
[2018-05-31] MEDS ORDERED: predniSONE 20 MG TAB PO SCH (14:00)
[2018-05-31] MEDS ORDERED: BUMETANIDE 1 MG TAB PO SCH (16:00)
== END 2018-05-31 15:05 | DRG 273 ==
LOC: EC 17:11 → 6SEL 21:23
PROVIDERS: ADMIT Internal Medicine; ATTEND Internal Medicine
PROC: 4A0234Z Measurement of Cardiac Electrical Activity, Percutaneous Approach (ICD-10-PCS; principal; 2018-05-27 10:49)
PROC: 4A023FZ Measurement of Cardiac Rhythm, Percutaneous Approach (ICD-10-PCS; principal; 2018-05-27 10:49)
PROC: 02583ZZ Destruction of Conduction Mechanism, Percutaneous Approach (ICD-10-PCS; principal; 2018-05-27 10:49)
PROC: 02K83ZZ Map Conduction Mechanism, Percutaneous Approach (ICD-10-PCS; principal; 2018-05-27 10:49)
PROC: 5A2204Z Restoration of Cardiac Rhythm, Single (ICD-10-PCS; principal; 2018-05-27 10:49)
PROC: 4B02XTZ Measurement of Cardiac Defibrillator, External Approach (ICD-10-PCS; principal; 2018-05-27 10:49)
DX: I11.0 Hypertensive heart disease with heart failure (principal); J96.01 Acute respiratory failure with hypoxia; E44.0 Moderate protein-calorie malnutrition; J44.1 Chronic obstructive pulmonary disease with (acute) exacerbation; L03.115 Cellulitis of right lower limb; L03.116 Cellulitis of left lower limb; N17.9 Acute kidney failure, unspecified; N39.0 Urinary tract infection, site not specified; D50.9 Iron deficiency anemia, unspecified; Z68.31 Body mass index [BMI] 31.0-31.9, adult; E66.9 Obesity, unspecified; E87.6 Hypokalemia; G89.29 Other chronic pain; H40.9 Unspecified glaucoma; I48.0 Paroxysmal atrial fibrillation; I50.33 Acute on chronic diastolic (congestive) heart failure; J45.50 Severe persistent asthma, uncomplicated; N13.9 Obstructive and reflux uropathy, unspecified; Z79.01 Long term (current) use of anticoagulants; Z87.891 Personal history of nicotine dependence; Z88.1 Allergy status to other antibiotic agents; Z90.710 Acquired absence of both cervix and uterus; Z95.810 Presence of automatic (implantable) cardiac defibrillator; Z79.51 Long term (current) use of inhaled steroids; Z79.899 Other long term (current) drug therapy; Z88.0 Allergy status to penicillin; Z88.2 Allergy status to sulfonamides; Z88.8 Allergy status to other drugs, medicaments and biological substances; Z91.041 Radiographic dye allergy status; Z98.49 Cataract extraction status, unspecified eye; M54.9 Dorsalgia, unspecified
CPT/HCPCS: 36415; 51702; 71046; 71250; 80053; 81001; 82550; 82553; 83735; 83880; 84443; 84484; 85025; 85610; 85730; 87040; 87077; 87086; 87186; 92960; 93005; 93280; 93650; 94640; 94760; 96365; 96366; 96375; 99285

== ENCOUNTER → 2019-04-21 | Outpatient (CLI) | payer MEDICARE ==
[2019-04-21 16:04] LABS: African American GFR (CKD) 48.7 (60.0-200.0); Anion Gap 8.7 mmol/L (4.00-12.00); BUN/Creat Ratio 31.67 Ratio (12.00-20.00); Calcium 9.3 mg/dL (8.7-10.3); Carbon Dioxide 32.3 mmol/L (21.6-31.8); Magnesium 2.1 mg/dL (1.5-2.4); Potassium 3.8 mmol/L (3.5-5.5)
== END | disposition home or self-care (01) ==
LOC: LABWHC1 10:32
PROVIDERS: ATTEND Nurse Practitioner Adult Health
DX: I10 Essential (primary) hypertension (principal)
CPT/HCPCS: 36415; 80048; 83735

== ENCOUNTER → 2020-03-06 | Outpatient (CLI) | payer MEDICARE ==
[2020-03-06 18:50] LABS: African American GFR (CKD) 40.2 (60.0-200.0); Anion Gap 10.3 mmol/L (4.00-12.00); BUN/Creat Ratio 12.86 Ratio (12.00-20.00); Calcium 9.4 mg/dL (8.7-10.3); Carbon Dioxide 33.7 mmol/L (21.6-31.8); Magnesium 1.8 mg/dL (1.5-2.4); Non-African American GFR(CKD) 34.7 (60.0-200.0); Potassium 3.3 mmol/L (3.5-5.5)
== END | disposition home or self-care (01) ==
LOC: LABWHC1 10:15
PROVIDERS: ATTEND Nurse Practitioner Adult Health
DX: I10 Essential (primary) hypertension (principal)
CPT/HCPCS: 36415; 80048; 83735

== ENCOUNTER 2020-04-01 17:18 | Inpatient (IN) | payer MEDICARE ==
[2020-04-01] MEDS ORDERED: IPRATROPIUM-ALBUTEROL 3 ML NEB INHALATION STA (18:02)
--- NOTE | 2020-04-01 18:07 | ED ---
General Adult HPI - General Chief complaint: Shortness of Breath Stated complaint: KATELIN Time Seen by Provider: 04/01/20 17:27 Source: patient, family, RN notes reviewed, old records reviewed (Previous EKGs reviewed) Mode of arrival: ambulatory Limitations: no limitations - History of Present Illness Initial comments: Patient is a pleasant 84-year-old female presenting to the emergency Department with complaints of altered breathing. Symptoms started a few days ago. Patient has had some discomfort of her chest and back over the past few days as well. No significant cough. Patient does have history of previous dyspnea associated with COPD and CHF. Patient does have chronic leg problems and neuropathy. Patient did have recent infection of her left leg however this is improving. - Related Data Home Medications Medication Instructions Recorded Confirmed Ascorbic Acid [Vitamin C] 500 mg PO DAILY 04/27/18 05/25/18 Calcium Carbonate [Tums] 500 - 1,000 mg PO TID PRN 04/27/18 05/25/18 Carboxymethylcellulose Sodium 1 - 2 drop BOTH EYES QID PRN 04/27/18 05/25/18 [Refresh Tears] Cholecalciferol (Vitamin D3) 2,000 unit PO DAILY 04/27/18 05/25/18 [Vitamin D3] Claritin 12 Hour Reditabs 1 tab PO Q12H PRN 04/27/18 05/25/18 Fluticasone/Vilanterol [Breo 1 puff INHALATION RT-DAILY 04/27/18 05/25/18 Ellipta 200-25 Mcg INH] Ipratropium/Albuterol Sulfate 1 puff INHALATION RT-QID PRN 04/27/18 05/25/18 [Combivent Respimat Inhaler] Latanoprost [Xalatan 0.005%] 1 drop RIGHT EYE HS 04/27/18 05/25/18 Montelukast [Singulair] 10 mg PO HS 04/27/18 05/25/18 Ranitidine HCl [Zantac] 150 mg PO BID PRN 04/27/18 05/25/18 Previous Rx's Medication Instructions Recorded Apixaban [Eliquis] 2.5 mg PO BID tablet 05/07/18 Doxycycline [Vibramycin] 100 mg PO BID #14 cap 05/29/18 Bumetanide [BUMEX] 2 mg PO BID@0900,1600 #0 tab 05/31/18 Ferrous Sulfate [Iron (65 MG 325 mg PO BID #60 tab 05/31/18 Elemental)] Gabapentin [Neurontin] 300 mg PO BID cap 05/31/18 Metoprolol Tartrate [Lopressor] 50 mg PO BID tab 05/31/18 Potassium Chloride ER [K-Dur 20] 20 meq PO DAILY #30 tab 05/31/18 SILVER sulfADIAZINE Cream 1 applic TOPICAL DAILY 7 Days 05/31/18 [Silvadene 1% Cream] applic Spironolactone [Aldactone] 25 mg PO BID tab 05/31/18 Allergies Allergy/AdvReac Type Severity Reaction Status Date / Time amlodipine Allergy Unknown Verified 04/01/20 17:26 benazepril [From Lotrel] Allergy Unknown Verified 04/01/20 17:26 cephalexin [From Keflex] Allergy Anaphylaxis Verified 04/01/20 17:26 Cephalosporins Allergy Anaphylaxis Verified 04/01/20 17:26 codeine Allergy Unknown Verified 04/01/20 17:26 gabapentin Allergy Swelling Verified 04/01/20 17:26 Iodinated Contrast Media Allergy Anaphylaxis Verified 04/01/20 17:26 [Iodinated Contrast- Oral and IV Dye] nebivolol [From Bystolic] Allergy Unknown Verified 04/01/20 17:26 olmesartan [From Benicar] Allergy Unknown Verified 04/01/20 17:26 Penicillins Allergy Anaphylaxis Verified 04/01/20 17:26 Sulfa (Sulfonamide Allergy Anaphylaxis Verified 04/01/20 17:26 Antibiotics) apixaban [From Eliquis] AdvReac BONE PAIN Verified 04/01/20 17:26 clonidine AdvReac BLURRED Verified 04/01/20 17:26 VISION, DIZZY, SCRATCHY THROAT furosemide [From Lasix] AdvReac Nausea & Verified 04/01/20 17:26 Vomiting & Diarrhea hydralazine AdvReac CHILLS, Verified 04/01/20 17:26 SHAKING, LIGHT HEADED, FACE FLUSHED isosorbide [From Imdur] AdvReac Rapid Verified 04/01/20 17:26 Heart Rate labetalol AdvReac Dyspnea Verified 04/01/20 17:26 lisinopril AdvReac Nausea & Verified 04/01/20 17:26 Vomiting & Diarrhea/COUGH PAPER MEDICAL TAPE Allergy Unknown Uncoded 04/01/20 17:26 Review of Systems ROS Statement: Those systems with pertinent positive or pertinent negative responses have been documented in the HPI. ROS Other: All systems not noted in ROS Statement are negative. Constitutional: Denies: fever Eyes: Denies: eye pain ENT: Denies: ear pain Respiratory: Reports: dyspnea Cardiovascular: Reports: chest pain Endocrine: Denies: fatigue Gastrointestinal: Denies: abdominal pain Genitourinary: Denies: dysuria Musculoskeletal: Denies: back pain Skin: Denies: rash Neurological: Denies: weakness Past Medical History Past Medical History: Atrial Fibrillation, Asthma, Heart Failure, COPD, Hypertension, Thyroid Disorder History of Any Multi-Drug Resistant Organisms: None Reported Past Surgical History: AICD, Hysterectomy, Pacemaker, Tonsillectomy Additional Past Surgical History / Comment(s): urethral suspension, ectopic, thyroid biopsy, cataract, glaucoma sx AICD/Pacer implant done in Apr, cardiac ablation 05/27/2018 Type of Cardiac Device: Permanent Pacemaker, AICD Device Placement Date:: Apr 2018 Past Psychological History: No Psychological Hx Reported Smoking Status: Former smoker Past Alcohol Use History: None Reported Past Drug Use History: None Reported General Exam Limitations: no limitations General appearance: alert, in no apparent distress Head exam: Present: normocephalic Eye exam: Present: normal appearance Neck exam: Present: normal inspection Respiratory exam: Present: normal lung sounds bilaterally, chest wall tenderness (Mild tenderness) Cardiovascular Exam: Present: regular rate, normal rhythm Expanded Peripheral pulses: 2+: Radial (R), Radial (L), Dorsalis Pedis (R), Dorsalis Pedis (L) GI/Abdominal exam: Present: soft. Absent: tenderness Extremities exam: Present: other (Mild erythema bilateral lower legs). Absent: pedal edema, calf tenderness Neurological exam: Present: alert Psychiatric exam: Present: normal affect, normal mood Skin exam: Present: normal color Course Vital Signs 04/01/20 04/01/20 04/01/20 17:21 17:38 18:26 Temperature 98 F Pulse Rate 60 63 Respiratory 24 24 Rate Blood Pressure 179/74 O2 Sat by Pulse 94 L Oximetry 04/01/20 04/01/20 04/01/20 18:31 18:39 19:10 Temperature 98.6 F Pulse Rate 61 63 60 Respiratory 20 20 Rate Blood Pressure 147/64 186/77 O2 Sat by Pulse 100 100 Oximetry - Reevaluation(s) Reevaluation #1: 04/01/20 20:01 Discussion had with patient and daughter regarding elevated d-dimer and computed tomography scan and renal function. They are made aware of risks and benefits including risk of renal failure. EKG Findings - EKG Comments: EKG Findings:: Wide-complex irregular rhythm with a rate of 64. QRS 1:30. QTC 416. QTC 429. Right axis. Precordial Q waves. No acute ST change. Medical Decision Making - Medical Decision Making Patient reevaluated and resting comfortably in bed. Patient and family updated on results and plan. Case was discussed in detail with Dr. Kumar, who will admit his patient with consult with Dr. Mitchell. - Lab Data Result diagrams: 04/01/20 17:38 04/01/20 17:38 Lab Results 04/01/20 04/01/20 04/01/20 Range/Units 17:38 17:38 17:38 WBC 10.1 (3.8-10.6) k/uL RBC 4.37 (3.80-5.40) m/uL Hgb 13.2 (11.4-16.0) gm/dL Hct 42.7 (34.0-46.0) % MCV 97.8 D (80.0-100.0) fL MCH 30.2 (25.0-35.0) pg MCHC 30.9 L (31.0-37.0) g/dL RDW 13.4 (11.5-15.5) % Plt Count 178 (150-450) k/uL Neutrophils % 73 % Lymphocytes % 18 % Monocytes % 7 % Eosinophils % 1 % Basophils % 0 % Neutrophils # 7.3 (1.3-7.7) k/uL Lymphocytes # 1.8 (1.0-4.8) k/uL Monocytes # 0.7 (0-1.0) k/uL Eosinophils # 0.1 (0-0.7) k/uL Basophils # 0.0 (0-0.2) k/uL PT 11.2 (9.0-12.0) sec INR 1.1 (<1.2) APTT 21.8 L (22.0-30.0) sec D-Dimer 1.04 H (<0.60) mg/L FEU Sodium 139 (137-145) mmol/L Potassium 3.8 (3.5-5.1) mmol/L Chloride 99 (98-107) mmol/L Carbon Dioxide 29 (22-30) mmol/L Anion Gap 11 mmol/L BUN 39 H (7-17) mg/dL Creatinine 1.52 H (0.52-1.04) mg/dL Est GFR (CKD-EPI)AfAm 36 (>60 ml/min/1.73 sqM) Est GFR (CKD-EPI)NonAf 32 (>60 ml/min/1.73 sqM) Glucose 115 H (74-99) mg/dL Plasma Lactic Acid Je (0.7-2.0) mmol/L Calcium 9.5 (8.4-10.2) mg/dL Total Bilirubin 1.3 (0.2-1.3) mg/dL AST 25 (14-36) U/L ALT 34 (4-34) U/L Alkaline Phosphatase 86 (38-126) U/L Troponin I (0.000-0.034) ng/mL NT-Pro-B Natriuret Pep pg/mL Total Protein 7.2 (6.3-8.2) g/dL Albumin 4.4 (3.5-5.0) g/dL 04/01/20 04/01/20 04/01/20 Range/Units 17:38 17:38 17:38 WBC (3.8-10.6) k/uL RBC (3.80-5.40) m/uL Hgb (11.4-16.0) gm/dL Hct (34.0-46.0) % MCV (80.0-100.0) fL MCH (25.0-35.0) pg MCHC (31.0-37.0) g/dL RDW (11.5-15.5) % Plt Count (150-450) k/uL Neutrophils % % Lymphocytes % % Monocytes % % Eosinophils % % Basophils % % Neutrophils # (1.3-7.7) k/uL Lymphocytes # (1.0-4.8) k/uL Monocytes # (0-1.0) k/uL Eosinophils # (0-0.7) k/uL Basophils # (0-0.2) k/uL PT (9.0-12.0) sec INR (<1.2) APTT (22.0-30.0) sec D-Dimer (<0.60) mg/L FEU Sodium (137-145) mmol/L Potassium (3.5-5.1) mmol/L Chloride (98-107) mmol/L Carbon Dioxide (22-30) mmol/L Anion Gap mmol/L BUN (7-17) mg/dL Creatinine (0.52-1.04) mg/dL Est GFR (CKD-EPI)AfAm (>60 ml/min/1.73 sqM) Est GFR (CKD-EPI)NonAf (>60 ml/min/1.73 sqM) Glucose (74-99) mg/dL Plasma Lactic Acid Je 2.0 (0.7-2.0) mmol/L Calcium (8.4-10.2) mg/dL Total Bilirubin (0.2-1.3) mg/dL AST (14-36) U/L ALT (4-34) U/L Alkaline Phosphatase (38-126) U/L Troponin I <0.012 (0.000-0.034) ng/mL NT-Pro-B Natriuret Pep 00690 pg/mL Total Protein (6.3-8.2) g/dL Albumin (3.5-5.0) g/dL - Radiology Data Radiology results: report reviewed (Computed tomography scan negative for pulmonary embolism. Mild heart failure. COPD changes.), image reviewed (Chest x-ray shows cardiac megaly) Disposition Clinical Impression: Acute exacerbation of chronic obstructive airways disease Disposition: ADMITTED IP TO THIS HOSP Is patient prescribed a controlled substance at d/c from ED?: No Referrals: Elham Kumar MD [Primary Care Provider] - 1-2 days Decision Time: 22:02
[2020-04-01 18:20] LABS: Basophils % (A) 0 %; Eosinophils # (A) 0.1 k/uL (0-0.7); Eosinophils % (A) 1 %; HCT 42.7 % (34.0-46.0); HGB 13.2 gm/dL (11.4-16.0); Lymphocytes # (A) 1.8 k/uL (1.0-4.8); Lymphocytes % (A) 18 %; MCH 30.2 pg (25.0-35.0); MCHC 30.9 g/dL (31.0-37.0); Mean Platelet Volume 9.5; Monocytes # (A) 0.7 k/uL (0-1.0); Monocytes % (A) 7 %; Neutrophils # (A) 7.3 k/uL (1.3-7.7); Neutrophils % (A) 73 %; Platelet Count 178 k/uL (150-450); RBC 4.37 m/uL (3.80-5.40); RDW 13.4 % (11.5-15.5); WBC 10.1 k/uL (3.8-10.6)
[2020-04-01 18:25] LABS: MCV 97.8 fL (80.0-100.0)
[2020-04-01 18:28] LABS: Albumin 4.4 g/dL (3.5-5.0); Calcium 9.5 mg/dL (8.4-10.2); Potassium 3.8 mmol/L (3.5-5.1); Total Bilirubin 1.3 mg/dL (0.2-1.3); Total Protein 7.2 g/dL (6.3-8.2)
[2020-04-01 18:43] LABS: INR 1.1 (<1.2); Partial Thromboplastin Time 21.8 sec (22.0-30.0); Prothrombin Time 11.2 sec (9.0-12.0)
[2020-04-01] MEDS ORDERED: MORPHINE SULFATE 2 MG/ML SYRINGE IVP STA (18:43)
[2020-04-01 18:58] LABS: D-Dimer 1.04 mg/L FEU (<0.60)
--- NOTE | 2020-04-01 19:19 | XR ---
EXAMINATION TYPE: XR chest 2V DATE OF EXAM: 04/01/2020 COMPARISON: 05/25/2018 HISTORY: Short of breath TECHNIQUE: 2 views FINDINGS: There is no heart failure nor confluent pneumonic infiltrate. Costophrenic angles are clear . There is left axillary pacemaker. There is moderate arthritic change in the shoulder joints. IMPRESSION: No active cardiopulmonary disease. Cardiomegaly. No change compared to old exam.
[2020-04-01] MEDS ORDERED: FAMOTIDINE 20 MG/2 ML VIAL IV STA (19:46)
[2020-04-01] MEDS ORDERED: diphenhydrAMINE 50 MG/ML 1 ML VIAL IVP STA (19:46)
[2020-04-01] MEDS ORDERED: methylPREDNISolone SOD SUCCI 125 MG/2 ML VIAL IV STA (19:46)
--- NOTE | 2020-04-01 21:12 | CT ---
EXAMINATION TYPE: CT angio chest DATE OF EXAM: 04/01/2020 COMPARISON: 09/21/2012 HISTORY: chest pain, SOB CT DLP: 451.7 mGycm Automated exposure control for dose reduction was used. CONTRAST: Performed with IV Contrast, patient injected with 80cc mL of Isovue 370. Images obtained from the thoracic inlet to the diaphragm with IV contrast and 3-D post processed imag es. There is diffuse pulmonary emphysema. There is some interstitial pulmonary fibrotic changes. There is no pleural effusion. There is no evidence of a pulmonary mass. Heart appears slightly enlarged. Ther e is some contrast reflux into the inferior vena cava. There is no pericardial effusion. There is normal contrast opacification of the pulmonary arteries. There are no filling defects. Thora cic aorta is atheromatous. There is no sign of aneurysm. There is no mediastinal adenopathy. There ar e no hilar masses. There is nonobstructing 4 mm calculus posterior left kidney. Thoracic vertebra hav e normal alignment. Disc spaces are fairly normal. There is anterior wedging of T6 vertebra 25%. IMPRESSION: No evidence of pulmonary embolism. Pulmonary emphysema and mild pulmonary fibrosis. Heart appears inc reased slightly compared to old exam. Mild heart failure is possible.
[2020-04-01] MEDS ORDERED: IPRATROPIUM-ALBUTEROL 3 ML NEB INHALATION PRN (22:03)
[2020-04-01] MEDS ORDERED: BUMETANIDE 0.25 MG/ML 10 ML VIAL IV ONE (22:15)
[2020-04-02] MEDS: methylPREDNISolone SOD SUCCI 125 MG/2 ML VIAL IV SCH ×4 (00:10→17:02)
[2020-04-02] MEDS: IPRATROPIUM-ALBUTEROL 3 ML NEB INHALATION SCH ×4 (07:16→20:50)
[2020-04-02] MEDS ORDERED: MUPIROCIN 2% OINT 22 GM TUBE TOPICAL PRN (09:04)
[2020-04-02] MEDS ORDERED: NON FORMULARY DRUG (Potassium Chloride [Potassium Chloride] 10 MEQ) PO PRN (09:04)
[2020-04-02] MEDS ORDERED: LORATADINE 10 MG TAB PO PRN (09:04)
[2020-04-02] MEDS ORDERED: NON FORMULARY DRUG (Ipratropium/Albuterol Sulfate [Combivent Respimat Inhaler] 1 PUFF) INHALATION PRN (09:04)
[2020-04-02] MEDS ORDERED: ARTIFICIAL TEARS-HYPROMELLOSE DROPS 15 ML BTL BOTH EYES PRN (09:04)
[2020-04-02] MEDS: PANTOPRAZOLE 40 MG TABLET PO SCH (09:30)
[2020-04-02] MEDS: HYDROcodone/APAP 7.5-325MG 1 EACH TAB PO PRN ×2 (09:31→21:19)
[2020-04-02] MEDS: APIXABAN 2.5 MG TABLET PO SCH ×2 (09:31→21:14)
[2020-04-02] MEDS: ASCORBIC ACID 500 MG TAB PO SCH (09:31)
[2020-04-02] MEDS: METOPROLOL TARTRATE 50 MG TAB PO SCH ×2 (09:31→21:14)
[2020-04-02] MEDS: BUMETANIDE 1 MG TAB PO SCH ×2 (09:32→16:54)
[2020-04-02] MEDS: VITAMIN E (DL,TOCOPHERYL ACET) 400 UNIT CAP PO SCH (09:32)
[2020-04-02] MEDS: GABAPENTIN 300 MG CAP PO SCH ×2 (09:41→21:14)
[2020-04-02] MEDS: SYMBICORT 160-4.5 MCG INHALER INHALATION SCH ×2 (10:59→20:56)
[2020-04-02] MEDS ORDERED: HYDROmorphone 0.5 MG/0.5 ML SYRINGE IVP PRN (12:33)
--- NOTE | 2020-04-02 13:33 | P.HPIM ---
History of Present Illness H&P Date: 04/02/20 Susan Bhatt, he is an 84-year-old female who presented to [facility] emergency room with a chief complaint of worsening shortness of breath patient was also colaining of left sided lower rib area pain, and difficulty to take deep breath, he was evaluated in the emergency room, vitals on arrival revealed a temperature of 98 espiration 24 blood pressure 179/74 d-dimer was elevated at 1.04 BUN was elevated at 13 9 and creatinine at 1.5 tochest x-ray revealed evidence of cardiomegaly otherwise no acute process, computed tomography scan angiogram of the chest, did not reveal any evidence of pulmonary embolism, there was evidence of mild heart failure, there was evidence of pulm onary emphysema and pulmonary fibrosis. 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 Inessa Lazar who does not come to the hospital at this time Dr. 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 patient has a known history of atrial fibrillation, congestive heart failure, COPD, pulmonary fibrosis, history of hypertension, history of rheumatoid arthritis, and history of sick sinus syndrome with history of pacemaker issa cement. on review of sms there is nills no headache or dizziness no chest pain, no cough no nausea or vomiting no abdominal pain, no diarrhea no burning was urination no frequency or urgency and no hematuria there is no change in vision speech or gait and no numbness or weakness in any of the extremities. Past Medical History Past Medical History: Atrial Fibrillation, Asthma, Heart Failure, COPD, Hypertension, Thyroid Disorder History of Any Multi-Drug Resistant Organisms: None Reported Past Surgical History: AICD, Hysterectomy, Pacemaker, Tonsillectomy Additional Past Surgical History / Comment(s): urethral suspension, ectopic, thyroid biopsy, cataract, glaucoma sx AICD/Pacer implant done in Apr, cardiac ablation 05/27/2018 Type of Cardiac Device: Permanent Pacemaker, AICD Device Placement Date:: Apr 2018 Past Psychological History: No Psychological Hx Reported Smoking Status: Former smoker Past Alcohol Use History: None Reported Past Drug Use History: None Reported Medications and Allergies Home Medications Medication Instructions Recorded Confirmed Type Ascorbic Acid [Vitamin C] 500 mg PO DAILY 04/27/18 04/01/20 History Carboxymethylcellulose Sodium 1 drop BOTH EYES BID PRN 04/27/18 04/01/20 History [Refresh Tears] Cholecalciferol (Vitamin D3) 2,000 unit PO DAILY 04/27/18 04/01/20 History [Vitamin D3] Claritin 12 Hour Reditabs 1 tab PO Q12H PRN 04/27/18 04/01/20 History Fluticasone/Vilanterol [Breo 1 puff INHALATION RT-DAILY 04/27/18 04/01/20 History Ellipta 200-25 Mcg INH] Ipratropium/Albuterol Sulfate 1 puff INHALATION RT-QID PRN 04/27/18 04/01/20 History [Combivent Respimat Inhaler] Latanoprost [Xalatan 0.005%] 1 drop RIGHT EYE HS 04/27/18 04/01/20 History Montelukast [Singulair] 10 mg PO HS 04/27/18 04/01/20 History Apixaban [Eliquis] 2.5 mg PO BID tablet 05/07/18 04/01/20 Rx Bumetanide [BUMEX] 2 mg PO BID@0900,1600 #0 tab 05/31/18 04/01/20 Rx Gabapentin [Neurontin] 300 mg PO BID cap 05/31/18 04/01/20 Rx Metoprolol Tartrate [Lopressor] 50 mg PO BID tab 05/31/18 04/01/20 Rx Biotin 1,000mcg 1,000 mcg PO DAILY 04/01/20 04/01/20 History HYDROcodone/APAP 7.5-325MG [[place] 1 tab PO Q8H PRN 04/01/20 04/01/20 History 7.5-325] Mupirocin [Mupirocin 2%] 1 applic TOPICAL DAILY PRN 04/01/20 04/01/20 History Potassium Chloride 10 meq PO DAILY PRN 04/01/20 04/01/20 History Vitamin E 400 mg PO DAILY 04/01/20 04/01/20 History Allergies Allergy/AdvReac Type Severity Reaction Status Date / Time amlodipine Allergy Unknown Verified 04/01/20 17:26 benazepril [From Lotrel] Allergy Unknown Verified 04/01/20 17:26 cephalexin [From Keflex] Allergy Anaphylaxis Verified 04/01/20 17:26 Cephalosporins Allergy Anaphylaxis Verified 04/01/20 17:26 codeine Allergy Unknown Verified 04/01/20 17:26 gabapentin Allergy Swelling Verified 04/01/20 17:26 Iodinated Contrast Media Allergy Anaphylaxis Verified 04/01/20 17:26 [Iodinated Contrast- Oral and IV Dye] nebivolol [From Bystolic] Allergy Unknown Verified 04/01/20 17:26 olmesartan [From Benicar] Allergy Unknown Verified 04/01/20 17:26 Penicillins Allergy Anaphylaxis Verified 04/01/20 17:26 Sulfa (Sulfonamide Allergy Anaphylaxis Verified 04/01/20 17:26 Antibiotics) apixaban [From Eliquis] AdvReac BONE PAIN Verified 04/01/20 17:26 clonidine AdvReac BLURRED Verified 04/01/20 17:26 VISION, DIZZY, SCRATCHY THROAT furosemide [From Lasix] AdvReac Nausea & Verified 04/01/20 17:26 Vomiting & Diarrhea hydralazine AdvReac CHILLS, Verified 04/01/20 17:26 SHAKING, LIGHT HEADED, FACE FLUSHED isosorbide [From Imdur] AdvReac Rapid Verified 04/01/20 17:26 Heart Rate labetalol AdvReac Dyspnea Verified 04/01/20 17:26 lisinopril AdvReac Nausea & Verified 04/01/20 17:26 Vomiting & Diarrhea/COUGH PAPER MEDICAL TAPE Allergy Unknown Uncoded 04/01/20 17:26 Physical Exam Vitals: Vital Signs Temp Pulse Pulse Resp BP Pulse Ox 04/02/20 07:26 62 04/02/20 07:16 60 04/02/20 06:48 61 04/02/20 06:40 97.6 F 60 16 154/84 98 04/02/20 03:27 62 16 98 04/02/20 02:17 60 15 171/78 99 04/02/20 00:35 60 163/66 04/01/20 23:45 62 156/68 04/01/20 22:55 97.7 F 61 16 194/61 100 04/01/20 22:03 97.6 F 60 16 222/97 100 04/01/20 19:10 98.6 F 60 20 186/77 100 04/01/20 18:39 63 20 147/64 100 04/01/20 18:31 61 04/01/20 18:26 63 04/01/20 17:38 24 04/01/20 17:21 98 F 60 24 179/74 94 L Intake and Output 04/01/20 04/02/20 04/02/20 22:59 06:59 14:59 Other: # Voids 6 Weight 83.007 kg in general patient is alert and oriented 3 in no apparent distress HEENT head normocephalic and atraumatic Neck is supple no JVD no goiter no lymphadenopathy Chest exam reveals a few scattered rhonchi no wheezing Cardiac exam reveals regular heart sounds S1 and S2 no gallops no murmurs Abdomen is soft nontender no organomegaly with normal bowel sounds Extremity exam reveals mild edema there is a scabbing ulcer in the left pretibial area Neurological examination reveals no gross focal deficit Results CBC & Chem 7: 04/01/20 17:38 04/01/20 17:38 Labs: Abnormal Lab Results - Last 24 Hours (Table) 04/01/20 04/01/20 04/01/20 Range/Units 17:38 17:38 17:38 MCHC 30.9 L (31.0-37.0) g/dL APTT 21.8 L (22.0-30.0) sec D-Dimer 1.04 H (<0.60) mg/L FEU BUN 39 H (7-17) mg/dL Creatinine 1.52 H (0.52-1.04) mg/dL Glucose 115 H (74-99) mg/dL Assessment and Plan Plan: 1. worsening shortness of breath, multi-factorial related to COPD exacerbation and underlying congestive heart failure, patient was started on IV Solu-Medrol, he was continued on oral Bumex, will monitor kidney function closely 2. Underlying history of congestive heart failure, likely diastolic with check echocardiogram 3. Acute exacerbation of chronic obstructive pulmonary disease patient started on IV Solu-Medrol and inhaled bronchodilators pulmonary consultation was requested 4. paroxysmal atrial fibrillation maintained on Eliquis continue 5. previous history of sick sinus syndrome with pacemaker placement 6. Left lower extremity cellulitis patient recently finished a course of oral antibiotic, there is a scabbing ulcer in the left pretibial area, Will consult Dr. Stark infectious disease 7. left flank pain Will check kidney ultrasound 8. Medication and labs were reviewed please see orders will follow closely
[2020-04-02 14:44] LABS: Albumin 3.6 g/dL (3.5-5.0); Calcium 9.1 mg/dL (8.4-10.2); Potassium 3.6 mmol/L (3.5-5.1); Total Bilirubin 0.9 mg/dL (0.2-1.3)
--- NOTE | 2020-04-02 15:47 | US ---
EXAMINATION TYPE: US kidneys/renal and bladder DATE OF EXAM: 04/02/2020 COMPARISON: NONE CLINICAL HISTORY: left flank pain. EXAM MEASUREMENTS: Right Kidney: 8.1 x 5.0 x 4.8 cm Left Kidney: 9.4 x 5.1 x 3.9 cm Right Kidney: No hydronephrosis. Cystic area lower 2.7 x 2.5 x 2.5 cm Left Kidney: No hydronephrosis.Cystic area visualized 0.8 cm Bilateral Jets seen: left jet seen IMPRESSION: 1. Bilateral renal cysts.
[2020-04-02 16:57] LABS: Glucose,Whole Blood 336 mg/dL (75-99)
[2020-04-02] MEDS: INSULIN ASPART (NovoLOG) 100 UNIT/ML VIAL SQ SCH ×2 (17:02→21:14)
--- NOTE | 2020-04-02 19:33 | P.CNPUL ---
History of Present Illness Consult date: 04/02/20 Reason for consult: dyspnea, COPD, hypoxemia Chief complaint: Progressive shortness of breath History of present illness: This is a pleasant 84-year-old female came into the hospital with increasing shortness of breath she has some ongoing chest pain also has epistaxis going on, patient has a chronic history of lung issues and congestive heart failure along with neuropathy, she describes her lower left chest has been having pleuritic chest pain, he was afebrile her d-dimer is elevated, renal functions who has been off as well patient is well-known to me for her end-stage lung disease fibrosis and chronic emphysema with multiple medical problems including Tylenol arthritis hypertension hypertensive cardiovascular disease sick sinus syndrome history of pacemaker, her admitted chest x-ray suggestive of chronic changes no active process and fired along with cardiomegaly, computed tomography scan of the chest was negative for pulmonary embolism is 0.4 cm left-sided renal calculus seen, EKG revealed sinus rhythm with heart block and paced rhythm, kidney ultrasound is negative for any significant pathology some cyst identified however Review of Systems All systems: negative Past Medical History Past Medical History: Atrial Fibrillation, Asthma, Heart Failure, COPD, Hypertension, Thyroid Disorder History of Any Multi-Drug Resistant Organisms: None Reported Past Surgical History: AICD, Hysterectomy, Pacemaker, Tonsillectomy Additional Past Surgical History / Comment(s): urethral suspension, ectopic, thyroid biopsy, cataract, glaucoma sx AICD/Pacer implant done in Apr, cardiac ablation 05/27/2018 Type of Cardiac Device: Permanent Pacemaker, AICD Device Placement Date:: Apr 2018 Past Psychological History: No Psychological Hx Reported Smoking Status: Former smoker Past Alcohol Use History: None Reported Past Drug Use History: None Reported Medications and Allergies Home Medications Medication Instructions Recorded Confirmed Type Ascorbic Acid [Vitamin C] 500 mg PO DAILY 04/27/18 04/01/20 History Carboxymethylcellulose Sodium 1 drop BOTH EYES BID PRN 04/27/18 04/01/20 History [Refresh Tears] Cholecalciferol (Vitamin D3) 2,000 unit PO DAILY 04/27/18 04/01/20 History [Vitamin D3] Claritin 12 Hour Reditabs 1 tab PO Q12H PRN 04/27/18 04/01/20 History Fluticasone/Vilanterol [Breo 1 puff INHALATION RT-DAILY 04/27/18 04/01/20 History Ellipta 200-25 Mcg INH] Ipratropium/Albuterol Sulfate 1 puff INHALATION RT-QID PRN 04/27/18 04/01/20 History [Combivent Respimat Inhaler] Latanoprost [Xalatan 0.005%] 1 drop RIGHT EYE HS 04/27/18 04/01/20 History Montelukast [Singulair] 10 mg PO HS 04/27/18 04/01/20 History Apixaban [Eliquis] 2.5 mg PO BID tablet 05/07/18 04/01/20 Rx Bumetanide [BUMEX] 2 mg PO BID@0900,1600 #0 tab 05/31/18 04/01/20 Rx Gabapentin [Neurontin] 300 mg PO BID cap 05/31/18 04/01/20 Rx Metoprolol Tartrate [Lopressor] 50 mg PO BID tab 05/31/18 04/01/20 Rx Biotin 1,000mcg 1,000 mcg PO DAILY 04/01/20 04/01/20 History HYDROcodone/APAP 7.5-325MG [[place] 1 tab PO Q8H PRN 04/01/20 04/01/20 History 7.5-325] Mupirocin [Mupirocin 2%] 1 applic TOPICAL DAILY PRN 04/01/20 04/01/20 History Potassium Chloride 10 meq PO DAILY PRN 04/01/20 04/01/20 History Vitamin E 400 mg PO DAILY 04/01/20 04/01/20 History Allergies Allergy/AdvReac Type Severity Reaction Status Date / Time amlodipine Allergy Unknown Verified 04/01/20 17:26 benazepril [From Lotrel] Allergy Unknown Verified 04/01/20 17:26 cephalexin [From Keflex] Allergy Anaphylaxis Verified 04/01/20 17:26 Cephalosporins Allergy Anaphylaxis Verified 04/01/20 17:26 codeine Allergy Unknown Verified 04/01/20 17:26 gabapentin Allergy Swelling Verified 04/01/20 17:26 Iodinated Contrast Media Allergy Anaphylaxis Verified 04/01/20 17:26 [Iodinated Contrast- Oral and IV Dye] nebivolol [From Bystolic] Allergy Unknown Verified 04/01/20 17:26 olmesartan [From Benicar] Allergy Unknown Verified 04/01/20 17:26 Penicillins Allergy Anaphylaxis Verified 04/01/20 17:26 Sulfa (Sulfonamide Allergy Anaphylaxis Verified 04/01/20 17:26 Antibiotics) apixaban [From Eliquis] AdvReac BONE PAIN Verified 04/01/20 17:26 clonidine AdvReac BLURRED Verified 04/01/20 17:26 VISION, DIZZY, SCRATCHY THROAT furosemide [From Lasix] AdvReac Nausea & Verified 04/01/20 17:26 Vomiting & Diarrhea hydralazine AdvReac CHILLS, Verified 04/01/20 17:26 SHAKING, LIGHT HEADED, FACE FLUSHED isosorbide [From Imdur] AdvReac Rapid Verified 04/01/20 17:26 Heart Rate labetalol AdvReac Dyspnea Verified 04/01/20 17:26 lisinopril AdvReac Nausea & Verified 04/01/20 17:26 Vomiting & Diarrhea/COUGH PAPER MEDICAL TAPE Allergy Unknown Uncoded 04/01/20 17:26 Physical Exam Vitals: Vital Signs Temp Pulse Pulse Pulse Resp BP BP 04/02/20 17:09 04/02/20 15:29 67 04/02/20 15:14 66 04/02/20 14:37 98.5 F 62 16 167/69 04/02/20 11:57 98.2 F 56 L 20 171/72 04/02/20 11:09 64 04/02/20 10:59 63 04/02/20 07:26 62 04/02/20 07:16 60 04/02/20 06:48 61 04/02/20 06:40 97.6 F 60 16 154/84 04/02/20 03:27 62 16 04/02/20 02:17 60 15 171/78 04/02/20 00:35 60 163/66 04/01/20 23:45 62 156/68 04/01/20 22:55 97.7 F 61 16 194/61 04/01/20 22:03 97.6 F 60 16 222/97 Pulse Ox 04/02/20 17:09 92 L 04/02/20 15:29 04/02/20 15:14 04/02/20 14:37 97 04/02/20 11:57 99 04/02/20 11:09 04/02/20 10:59 04/02/20 07:26 04/02/20 07:16 04/02/20 06:48 04/02/20 06:40 98 04/02/20 03:27 98 04/02/20 02:17 99 04/02/20 00:35 04/01/20 23:45 04/01/20 22:55 100 04/01/20 22:03 100 Intake and Output 04/02/20 04/02/20 04/02/20 06:59 14:59 22:59 Intake Total 540 Balance 540 Intake: Oral 540 Other: Voiding Method Toilet # Voids 6 1 1 - Constitutional General appearance: average body habitus, cooperative, mild distress - Neck Neck: normal ROM Carotids: bilateral: upstroke normal Thyroid: bilateral: normal size - Respiratory Respiratory: bilateral: diminished - Cardiovascular Rhythm: regular Heart sounds: normal: S1, S2 - Gastrointestinal General gastrointestinal: decreased bowel sounds, soft - Integumentary Integumentary: normal turgor - Neurologic Neurologic: CNII-XII intact - Musculoskeletal Musculoskeletal: gait normal, generalized weakness, strength equal bilaterally - Psychiatric Psychiatric: A&O x's 3, appropriate affect, intact judgment & insight Results - Laboratory Findings CBC and BMP: 04/01/20 17:38 04/02/20 14:13 PT/INR, D-dimer PT 11.2 sec (9.0-12.0) 04/01/20 17:38 INR 1.1 (<1.2) 04/01/20 17:38 D-Dimer 1.04 mg/L FEU (<0.60) H 04/01/20 17:38 Abnormal lab findings: Abnormal Labs 04/01/20 04/01/20 04/01/20 17:38 17:38 17:38 MCHC 30.9 L APTT 21.8 L D-Dimer 1.04 H BUN 39 H Creatinine 1.52 H Glucose 115 H POC Glucose (mg/dL) Total Protein 04/02/20 04/02/20 14:13 16:53 MCHC APTT D-Dimer BUN 38 H Creatinine 1.38 H Glucose 217 H POC Glucose (mg/dL) 336 H Total Protein 6.0 L - Diagnostic Findings Chest x-ray: report reviewed, image reviewed CT scan - chest: report reviewed, image reviewed (Finding as noted above) Assessment and Plan Assessment: Acute COPD exacerbation Associated congestive heart failure acute on chronic diastolic heart failure Proximal atrial fibrillation Epistaxis has resolved Left flank pain likely related to renal calculi which is nonobstructing Mild pulmonary fibrosis Chronic hypoxic respiratory failure on home oxygen at nighttime Plan: Continue bronchodilator Follow clinical course closely continue IV steroids Monitor and observe for flank pain May need urology evaluation if continued to have flank pain Further recommendations pending plan of care as per clinical response of the patient Time with Patient: Greater than 30
[2020-04-02 20:32] LABS: Glucose,Whole Blood 237 mg/dL (75-99)
[2020-04-02] MEDS: LATANOPROST 0.005% OPHTH DROPS 2.5 ML BTL RIGHT EYE SCH (21:14)
[2020-04-02] MEDS: MONTELUKAST 10 MG TAB PO SCH (21:14)
[2020-04-03] MEDS: methylPREDNISolone SOD SUCCI 125 MG/2 ML VIAL IV SCH ×4 (00:34→17:36)
[2020-04-03 07:07] LABS: Glucose,Whole Blood 187 mg/dL (75-99)
[2020-04-03] MEDS: INSULIN ASPART (NovoLOG) 100 UNIT/ML VIAL SQ SCH ×4 (08:08→21:17)
[2020-04-03] MEDS: APIXABAN 2.5 MG TABLET PO SCH ×2 (08:09→21:16)
[2020-04-03] MEDS: METOPROLOL TARTRATE 50 MG TAB PO SCH ×2 (08:09→21:16)
[2020-04-03] MEDS: VITAMIN E (DL,TOCOPHERYL ACET) 400 UNIT CAP PO SCH (08:09)
[2020-04-03] MEDS: BUMETANIDE 1 MG TAB PO SCH ×2 (08:09→15:45)
[2020-04-03] MEDS: ASCORBIC ACID 500 MG TAB PO SCH (08:09)
[2020-04-03] MEDS: CHOLECALCIFEROL 1,000 UNIT TAB PO SCH (08:09)
[2020-04-03] MEDS: PANTOPRAZOLE 40 MG TABLET PO SCH (08:09)
[2020-04-03] MEDS: GABAPENTIN 300 MG CAP PO SCH ×2 (08:10→21:16)
[2020-04-03] MEDS: BIOTIN 1000 MCG PO SCH (08:10)
[2020-04-03] MEDS: HYDROcodone/APAP 7.5-325MG 1 EACH TAB PO PRN ×2 (08:16→15:44)
[2020-04-03 08:33] LABS: Basophils % (A) 0 %; Eosinophils % (A) 0 %; HCT 35.8 % (34.0-46.0); HGB 11.3 gm/dL (11.4-16.0); Lymphocytes # (A) 0.5 k/uL (1.0-4.8); Lymphocytes % (A) 6 %; MCH 30.8 pg (25.0-35.0); MCHC 31.6 g/dL (31.0-37.0); MCV 97.5 fL (80.0-100.0); Mean Platelet Volume 8.8; Monocytes # (A) 0.2 k/uL (0-1.0); Monocytes % (A) 2 %; Neutrophils # (A) 7.8 k/uL (1.3-7.7); Neutrophils % (A) 91 %; Platelet Count 154 k/uL (150-450); RBC 3.67 m/uL (3.80-5.40); RDW 13.6 % (11.5-15.5); WBC 8.6 k/uL (3.8-10.6)
[2020-04-03] MEDS: SYMBICORT 160-4.5 MCG INHALER INHALATION SCH ×2 (08:44→21:21)
[2020-04-03] MEDS: IPRATROPIUM-ALBUTEROL 3 ML NEB INHALATION SCH ×4 (08:44→21:21)
[2020-04-03 08:49] LABS: Albumin 3.3 g/dL (3.5-5.0); Calcium 8.8 mg/dL (8.4-10.2); Potassium 3.5 mmol/L (3.5-5.1); Total Bilirubin 0.8 mg/dL (0.2-1.3); Total Protein 5.5 g/dL (6.3-8.2)
--- NOTE | 2020-04-03 10:36 | P.CRDCN ---
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 [employer] device, COPD, former nicotine dependence and hypothyroidism. She follows in the office with Dr Holliday. We have been asked to see in consultation for shortness of breath. She states for the previous one week she has been experiencing worsening discomfort in her left upper back. She has chronic pain and the pain has not been controlled well. She feels as though her breathing has worsened as well because she cannot take a deep breath due to the pain in her back. She denies chest pain, dizziness or palpitations. Most recent echocardiogram obtained in 2018 reveals preserved LV systolic function with ejection fraction 55-60%. According to the patient on admission she had significant lower extremity edema that has greatly resolved. She also has a nonhealing vascular ulcer noted on the medial aspect of her left lower extremity. DIAGNOSTICS EKG reveals ventricular paced rhythm with underlying atrial fibrillation. Chest xray negative for an acute cardiopulmonary process. CTA of the chest is negative for pulmonary embolism, pulmonary emphysema and mild pulmonary fibrosis noted and possibly mild heart failure. Laboratory reviewed, WBC 8.6, hemoglobin 11.3, platelets 154, d-dimer 1.04, sodium 138, potassium 3.5, creatinine on admission 1.5 to repeat today 1.49, troponin negative 1, and T proBNP 17,100 and albumin 3.3. Current cardiac medications include Eliquis 2.5 mg twice a day, Lopressor 50 mg twice a day and Bumex 2 mg twice a day. REVIEW OF SYSTEMS At the time of my exam: CONSTITUTIONAL: Denies fever or chills. CARDIOVASCULAR: Denies chest pain, shortness of breath, orthopnea, PND or palpitations. RESPIRATORY: Denies cough. GASTROINTESTINAL: Denies abdominal pain, diarrhea, constipation, nausea or vomiting. MUSCULOSKELETAL: Complains of chronic left upper back pain. NEUROLOGIC: Denies numbness, tingling or weakness. ENDOCRINE: Denies fatigue, weight change, polydipsia or polyurina. GENITOURINARY: Denies burning, hematuria or urgency with micturation. HEMATOLOGIC: Denies history of anemia or bleeding. PHYSICAL EXAMINATION Blood pressure 172/77 heart rate 80 afebrile and maintaining oxygen saturation on room air. CONSTITUTIONAL: No apparent distress. HEENT: Head is normocephalic. Pupils are equal, round. Sclerae anicteric. Mucous membranes of the mouth are moist. No JVD. No carotid bruit. CHEST EXAMINATION: Lungs are clear to auscultation. No chest wall tenderness is noted on palpation or with deep breathing. Diminished bilaterally. HEART EXAMINATION: Irregular rate and rhythm. S1, S2 heard. No murmurs, gallops or rub. ABDOMEN: Soft, nontender. Positive bowel sounds. EXTREMITIES: 1+ peripheral pulses, no lower extremity edema and no calf tenderness. 2 areas of ulceration noted on the medial aspect of the left lower extremity. Generalized erythema bilaterally. NEUROLOGIC EXAMINATION: Patient is awake, alert and oriented x3. ASSESSMENT Acute on chronic diastolic heart failure, mild. Seems to have improved since admission. Acute exacerbation of COPD Acute kidney injury Chronic back pain Hypertension Paroxysmal atrial fibrillation on long-term anticoagulation Permanent pacemaker implantation secondary to tachybradycardia syndrome PLAN Continue current dose of bumex. Repeat 2D echocardiogram and doppler study to assess cardiac structure and function. Ongoing treatment for chronic back pain and COPD. Thank you kindly for this consultation. Nurse Practitioner note has been reviewed, I agree with a documented findings and plan of care. Patient was seen and examined. Past Medical History Past Medical History: Atrial Fibrillation, Asthma, Heart Failure, COPD, Hypertension, Thyroid Disorder History of Any Multi-Drug Resistant Organisms: None Reported Past Surgical History: AICD, Hysterectomy, Pacemaker, Tonsillectomy Additional Past Surgical History / Comment(s): urethral suspension, ectopic, thyroid biopsy, cataract, glaucoma sx AICD/Pacer implant done in Apr, cardiac ablation 05/27/2018 Type of Cardiac Device: Permanent Pacemaker, AICD Device Placement Date:: Apr 2018 Past Psychological History: No Psychological Hx Reported Smoking Status: Former smoker Past Alcohol Use History: None Reported Past Drug Use History: None Reported Medications and Allergies Home Medications Medication Instructions Recorded Confirmed Type Ascorbic Acid [Vitamin C] 500 mg PO DAILY 04/27/18 04/01/20 History Carboxymethylcellulose Sodium 1 drop BOTH EYES BID PRN 04/27/18 04/01/20 History [Refresh Tears] Cholecalciferol (Vitamin D3) 2,000 unit PO DAILY 04/27/18 04/01/20 History [Vitamin D3] Claritin 12 Hour Reditabs 1 tab PO Q12H PRN 04/27/18 04/01/20 History Fluticasone/Vilanterol [Breo 1 puff INHALATION RT-DAILY 04/27/18 04/01/20 History Ellipta 200-25 Mcg INH] Ipratropium/Albuterol Sulfate 1 puff INHALATION RT-QID PRN 04/27/18 04/01/20 History [Combivent Respimat Inhaler] Latanoprost [Xalatan 0.005%] 1 drop RIGHT EYE HS 04/27/18 04/01/20 History Montelukast [Singulair] 10 mg PO HS 04/27/18 04/01/20 History Apixaban [Eliquis] 2.5 mg PO BID tablet 05/07/18 04/01/20 Rx Bumetanide [BUMEX] 2 mg PO BID@0900,1600 #0 tab 05/31/18 04/01/20 Rx Gabapentin [Neurontin] 300 mg PO BID cap 05/31/18 04/01/20 Rx Metoprolol Tartrate [Lopressor] 50 mg PO BID tab 05/31/18 04/01/20 Rx Biotin 1,000mcg 1,000 mcg PO DAILY 04/01/20 04/01/20 History HYDROcodone/APAP 7.5-325MG [[place] 1 tab PO Q8H PRN 04/01/20 04/01/20 History 7.5-325] Mupirocin [Mupirocin 2%] 1 applic TOPICAL DAILY PRN 04/01/20 04/01/20 History Potassium Chloride 10 meq PO DAILY PRN 04/01/20 04/01/20 History Vitamin E 400 mg PO DAILY 04/01/20 04/01/20 History Allergies Allergy/AdvReac Type Severity Reaction Status Date / Time amlodipine Allergy Unknown Verified 04/01/20 17:26 benazepril [From Lotrel] Allergy Unknown Verified 04/01/20 17:26 cephalexin [From Keflex] Allergy Anaphylaxis Verified 04/01/20 17:26 Cephalosporins Allergy Anaphylaxis Verified 04/01/20 17:26 codeine Allergy Unknown Verified 04/01/20 17:26 gabapentin Allergy Swelling Verified 04/01/20 17:26 Iodinated Contrast Media Allergy Anaphylaxis Verified 04/01/20 17:26 [Iodinated Contrast- Oral and IV Dye] nebivolol [From Bystolic] Allergy Unknown Verified 04/01/20 17:26 olmesartan [From Benicar] Allergy Unknown Verified 04/01/20 17:26 Penicillins Allergy Anaphylaxis Verified 04/01/20 17:26 Sulfa (Sulfonamide Allergy Anaphylaxis Verified 04/01/20 17:26 Antibiotics) apixaban [From Eliquis] AdvReac BONE PAIN Verified 04/01/20 17:26 clonidine AdvReac BLURRED Verified 04/01/20 17:26 VISION, DIZZY, SCRATCHY THROAT furosemide [From Lasix] AdvReac Nausea & Verified 04/01/20 17:26 Vomiting & Diarrhea hydralazine AdvReac CHILLS, Verified 04/01/20 17:26 SHAKING, LIGHT HEADED, FACE FLUSHED isosorbide [From Imdur] AdvReac Rapid Verified 04/01/20 17:26 Heart Rate labetalol AdvReac Dyspnea Verified 04/01/20 17:26 lisinopril AdvReac Nausea & Verified 04/01/20 17:26 Vomiting & Diarrhea/COUGH P[employer]ER MEDICAL TAPE Allergy Unknown Uncoded 04/01/20 17:26 Physical Exam Vitals: Vital Signs Temp Pulse Pulse Resp BP Pulse Ox 04/03/20 08:59 80 04/03/20 08:45 76 04/03/20 07:00 98.1 F 60 18 172/77 97 04/03/20 01:44 98.1 F 63 16 164/69 98 04/02/20 23:24 97.9 F 58 L 143/62 96 04/02/20 21:07 64 04/02/20 20:50 68 04/02/20 19:11 97.9 F 59 L 16 175/63 97 04/02/20 17:09 92 L 04/02/20 15:29 67 04/02/20 15:14 66 04/02/20 14:37 98.5 F 62 16 167/69 97 04/02/20 11:57 98.2 F 56 L 20 171/72 99 04/02/20 11:09 64 04/02/20 10:59 63 Intake and Output 04/02/20 04/03/20 04/03/20 22:59 06:59 14:59 Other: Voiding Method Bedside Commode Bedside Commode Bedside Commode # Voids 2 2 # Bowel Movements 1 Results 04/03/20 07:30 04/03/20 07:30 Cardiac Enzymes 04/02/20 04/03/20 Range/Units 14:13 07:30 AST 20 17 (14-36) U/L CBC 04/03/20 Range/Units 07:30 WBC 8.6 (3.8-10.6) k/uL RBC 3.67 L (3.80-5.40) m/uL Hgb 11.3 L (11.4-16.0) gm/dL Hct 35.8 (34.0-46.0) % Plt Count 154 (150-450) k/uL Comprehensive Metabolic Panel 04/02/20 04/03/20 Range/Units 14:13 07:30 Sodium 138 138 (137-145) mmol/L Potassium 3.6 3.5 (3.5-5.1) mmol/L Chloride 102 103 (98-107) mmol/L Carbon Dioxide 27 30 (22-30) mmol/L BUN 38 H 44 H (7-17) mg/dL Creatinine 1.38 H 1.49 H (0.52-1.04) mg/dL Glucose 217 H 170 H (74-99) mg/dL Calcium 9.1 8.8 (8.4-10.2) mg/dL AST 20 17 (14-36) U/L ALT 24 23 (4-34) U/L Alkaline Phosphatase 68 58 (38-126) U/L Total Protein 6.0 L 5.5 L (6.3-8.2) g/dL Albumin 3.6 3.3 L (3.5-5.0) g/dL Current Medications Generic Name Dose Route Start Last Admin Trade Name Freq PRN Reason Stop Dose Admin Hydrocodone Bitart/Acetaminophen 1 each 04/02/20 09:04 04/03/20 08:16 [place] 7.5-325 PO 1 each Q8H PRN Administration Pain Albuterol/Ipratropium 3 ml 04/02/20 08:00 04/03/20 08:44 Duoneb 0.5 Mg-3 Mg/3 Ml Soln INHALATION 3 ml RT-QID ОЛЕГ Administration Albuterol/Ipratropium 3 ml 04/01/20 22:03 Duoneb 0.5 Mg-3 Mg/3 Ml Soln INHALATION RT-Q4H PRN Shortness Of Breath Or Wheezing Apixaban 2.5 mg 04/02/20 09:15 04/03/20 08:09 Eliquis PO 2.5 mg BID ОЛЕГ Administration Artificial Tears 1 drops 04/02/20 09:04 Artificial Tear Drops BOTH EYES BID PRN dry eyes Ascorbic Acid 500 mg 04/02/20 09:15 04/03/20 08:09 Vitamin C PO 500 mg DAILY ОЛЕГ Administration Budesonide/Formoterol Fumarate 2 puff 04/02/20 10:00 04/03/20 08:44 Symbicort 160-4.5 Mcg Inhaler INHALATION 2 puff RT-BID ОЛЕГ Administration Bumetanide 2 mg 04/02/20 09:00 04/03/20 08:09 Bumex PO 2 mg BID@0900,1600 ОЛЕГ Administration Cholecalciferol 2,000 unit 04/03/20 09:00 04/03/20 08:09 Vitamin D3 (25 Mcg = 1000 Iu) PO 2,000 unit DAILY ОЛЕГ Administration Gabapentin 300 mg 04/02/20 09:15 04/03/20 08:10 Neurontin PO 300 mg BID ОЛЕГ Administration Hydromorphone HCl 0.5 mg 04/02/20 12:33 04/02/20 13:51 Dilaudid IVP 0.5 mg Q4HR PRN Administration Pain Insulin Aspart 0 unit 04/02/20 17:30 04/03/20 08:08 Novolog SQ 5 unit ACHS ОЛЕГ Administration Protocol Latanoprost 1 drops 04/02/20 21:00 04/02/20 21:14 Xalatan 0.005% RIGHT EYE 1 drops HS ОЛЕГ Administration Loratadine 10 mg 04/02/20 09:04 04/02/20 09:31 Claritin PO 10 mg DAILY PRN Administration Allergy Symptoms Methylprednisolone Sodium Succinate 60 mg 04/02/20 00:00 04/03/20 05:47 Solu-Medrol IV 60 mg Q6HR ОЛЕГ Administration Metoprolol Tartrate 50 mg 04/02/20 09:15 04/03/20 08:09 Lopressor PO 50 mg BID ОЛЕГ Administration Montelukast Sodium 10 mg 04/02/20 21:00 04/02/20 21:14 Singulair PO 10 mg HS ОЛЕГ Administration Mupirocin 1 applic 04/02/20 09:04 Bactroban Oint TOPICAL DAILY PRN Rash Non-Formulary Medication 1,000 mcg 04/03/20 09:00 04/03/20 08:10 Biotin 1,000mcg PO Not Given DAILY ОЛЕГ Pantoprazole Sodium 40 mg 04/02/20 09:15 04/03/20 08:09 Protonix PO 40 mg AC-BRKFST ОЛЕГ Administration Sodium Chloride 10 ml 04/02/20 09:00 04/03/20 08:10 Saline Flush IV 10 ml BID ОЛЕГ Administration Vitamin E 400 unit 04/02/20 09:15 04/03/20 08:09 Vitamin E PO 400 unit DAILY ОЛЕГ Administration Intake and Output 04/02/20 04/03/20 04/03/20 22:59 06:59 14:59 Other: Voiding Method Bedside Commode Bedside Commode Bedside Commode # Voids 2 2 # Bowel Movements 1 04/03/20 07:30 04/03/20 07:30
--- NOTE | 2020-04-03 11:11 | ECHOF ---
Referral Reason:shortness of breath MEASUREMENTS -------- HEIGHT: 167.6 cm WEIGHT: 83.0 kg BP: RVIDd: 3.7 cm (< 3.3) IVSd: 1.3 cm (0.6 - 1.1) LVIDd: 3.8 cm (3.9 - 5.3) LVPWd: 1.2 cm (0.6 - 1.1) IVSs: 1.7 cm LVIDs: 2.0 cm LVPWs: 1.9 cm LAESV Index (A-L): 28.30 ml/m Ao Diam: 3.1 cm (2.0 - 3.7) AV Cusp: 1.8 cm (1.5 - 2.6) LA Diam: 4.2 cm (2.7 - 3.8) MV EXCURSION: 13.883 mm (> 18.000) MV EF SLOPE: 85 mm/s (70 - 150) EPSS: 1.5 cm MV E Renato: 1.20 m/s MV DecT: 167 ms MV A Renato: 0.35 m/s MV E/A Ratio: 3.39 AR PHT: 1000 ms RAP: 15.00 mmHg RVSP: 45.74 mmHg FINDINGS -------- Paced rhythm. This was a technically good study. The left ventricular size is normal. There is mild concentric left ventricular hypertrophy. Overa ll left ventricular systolic function is normal with, an EF between 55 - 60 %. Normal LAP Grade 1 D iastolic Dysfunction. The right ventricle is mildly enlarged. The left atrium is mildly dilated. Normal LA size by volume 22+/-6 ml/m2. The right atrial size is normal. Interatrial and interventricular septum intact. The aortic valve is trileaflet and appears structurally normal. Trace amount of aortic regurgitatio n. The mitral valve is normal. The mitral valve leaflets are mildly thickened. Mild mitral regurgita tion is present. The tricuspid valve appears structurally normal. Moderate tricuspid regurgitation present. There is mild pulmonary hypertension. The right ventricular systolic pressure, as measured by Doppler, is 45.74mmHg. There is no pulmonic regurgitation present. The aortic root size is normal. The inferior vena cava is mildly dilated. There is a small, generalized pericardial effusion present. CONCLUSIONS -------- 1. Paced rhythm. 2. There is mild concentric left ventricular hypertrophy. 3. Normal LAP Grade 1 Diastolic Dysfunction. 4. The right ventricle is mildly enlarged. 5. The left atrium is mildly dilated. 6. Trace amount of aortic regurgitation. 7. The mitral valve leaflets are mildly thickened. 8. Mild mitral regurgitation is present. 9. Moderate tricuspid regurgitation present. 10. There is mild pulmonary hypertension. 11. The right ventricular systolic pressure, as measured by Doppler, is 45.74mmHg. 12. The inferior vena cava is mildly dilated. 13. There is a small, generalized pericardial effusion present. AUTOMATION TECHNOLOGIST: Fozia Nino RDCS
[2020-04-03 12:04] LABS: Glucose,Whole Blood 171 mg/dL (75-99)
[2020-04-03 17:29] LABS: Glucose,Whole Blood 277 mg/dL (75-99)
--- NOTE | 2020-04-03 18:04 | P.PN ---
Subjective Progress Note Date: 04/03/20 Susan Bhatt, he is an 84-year-old female who presented to [facility] emergency room with a chief complaint of worsening shortness of breath patient was also colaining of left sided lower rib area pain, and difficulty to take deep breath, he was evaluated in the emergency room, vitals on arrival revealed a temperature of 98 espiration 24 blood pressure 179/74 d-dimer was elevated at 1.04 BUN was elevated at 13 9 and creatinine at 1.5 tochest x-ray revealed evidence of cardiomegaly otherwise no acute process, computed tomography scan angiogram of the chest, did not reveal any evidence of pulmonary embolism, there was evidence of mild heart failure, there was evidence of pulmonary emphysema and pulmonary fibrosis. Patient was started on IV Solu- Medrol and inhaled bronchodilators and was admitted to medical floor, pulmonary and cardiology consultation requested, her guard entrance registrar is Dr. Inessa Lazar who does not come to the hospital at this time Dr. 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 patient has a known history of atrial fibrillation, congestive heart failure, COPD, pulmonary fibrosis, history of hypertension, history of rheumatoid arthritis, and history of sick sinus syndrome with history of pacemaker placemen t. on review of sms there is nills no headache or dizziness no chest pain, no cough no nausea or vomiting no abdominal pain, no diarrhea no burning was urination no frequency or urgency and no hematuria there is no change in vision speech or gait and no numbness or weakness in any of the extremities. On 04/03/2020 patient was seen and examined on the medical floor she is alert and oriented 3 in no apparent distress there is no fever or chills no headache or dizziness no chest pain or shortness of breath is improving there is occasional cough no nausea or vomiting no abdominal pain no diarrhea no burning with urination no frequency or urgency and no hematuria, lower extremity swelling has improved Objective - Vital Signs Vital signs: Vital Signs Temp 98.1 F 04/03/20 07:00 Pulse 80 04/03/20 08:59 Resp 18 04/03/20 07:00 BP 172/77 04/03/20 07:00 Pulse Ox 97 04/03/20 07:00 Intake & Output 04/02/20 04/03/20 04/03/20 18:59 06:59 18:59 Intake Total 540 Balance 540 Intake: Oral 540 Other: Voiding Method Toilet Bedside Commode # Voids 1 2 # Bowel Movements 1 - Exam in general patient is alert and oriented 3 in no apparent distress HEENT head normocephalic and atraumatic Neck is supple no JVD no goiter no lymphadenopathy Chest exam reveals a few scattered rhonchi no wheezing Cardiac exam reveals regular heart sounds S1 and S2 no gallops no murmurs Abdomen is soft nontender no organomegaly with normal bowel sounds Extremity exam reveals mild edema there is a scabbing ulcer in the left pretibial area Neurological examination reveals no gross focal deficit - Labs CBC & Chem 7: 04/03/20 07:30 04/03/20 07:30 Labs: Abnormal Lab Results - Last 24 Hours (Table) 04/02/20 04/02/20 04/02/20 Range/Units 14:13 16:53 20:30 RBC (3.80-5.40) m/uL Hgb (11.4-16.0) gm/dL Neutrophils # (1.3-7.7) k/uL Lymphocytes # (1.0-4.8) k/uL BUN 38 H (7-17) mg/dL Creatinine 1.38 H (0.52-1.04) mg/dL Glucose 217 H (74-99) mg/dL POC Glucose (mg/dL) 336 H 237 H (75-99) mg/dL Total Protein 6.0 L (6.3-8.2) g/dL Albumin (3.5-5.0) g/dL 04/03/20 04/03/20 04/03/20 Range/Units 07:05 07:30 07:30 RBC 3.67 L (3.80-5.40) m/uL Hgb 11.3 L (11.4-16.0) gm/dL Neutrophils # 7.8 H (1.3-7.7) k/uL Lymphocytes # 0.5 L (1.0-4.8) k/uL BUN 44 H (7-17) mg/dL Creatinine 1.49 H (0.52-1.04) mg/dL Glucose 170 H (74-99) mg/dL POC Glucose (mg/dL) 187 H (75-99) mg/dL Total Protein 5.5 L (6.3-8.2) g/dL Albumin 3.3 L (3.5-5.0) g/dL Assessment and Plan Plan: 1. worsening shortness of breath, multi-factorial related to COPD exacerbation and underlying congestive heart failure, patient was started on IV Solu-Medrol, he was continued on oral Bumex, will monitor kidney function closely 2. Underlying history of congestive heart failure, likely diastolic with check echocardiogram 3. Acute exacerbation of chronic obstructive pulmonary disease patient started on IV Solu-Medrol and inhaled bronchodilators pulmonary consultation was requested 4. paroxysmal atrial fibrillation maintained on Eliquis continue 5. previous history of sick sinus syndrome with pacemaker placement 6. Left lower extremity cellulitis patient recently finished a course of oral antibiotic, there is a scabbing ulcer in the left pretibial area, Will consult Dr. Stark infectious disease 7. left flank pain Will check kidney ultrasound 8. Medication and labs were reviewed please see orders will follow closely 9. Confusion likely related to medications, at this time dose of Solu-Medrol was decreased to 40 mg IV every 8 hours, dialogued was discontinued and dose of [place] was increased to 10 mg every 8 hours, will recheck in a.m.
[2020-04-03 20:40] LABS: Glucose,Whole Blood 280 mg/dL (75-99)
--- NOTE | 2020-04-03 20:47 | P.PN ---
Subjective Progress Note Date: 04/03/20 Principal diagnosis: Acute COPD exacerbation Associated congestive heart failure acute on chronic diastolic heart failure Proximal atrial fibrillation Epistaxis has resolved Left flank pain likely related to renal calculi which is nonobstructing Mild pulmonary fibrosis Chronic hypoxic respiratory failure on home oxygen at nighttime 04/03/2020, patient seen eval examined during the rounds, cough shortness of breath still there was severity has improved, less confused today, plan to continue current therapy follow-up Observe clinical course closely patient has been eval by cardiovascular services This is a pleasant 84-year-old female came into the hospital with increasing shortness of breath she has some ongoing chest pain also has epistaxis going on, patient has a chronic history of lung issues and congestive heart failure along with neuropathy, she describes her lower left chest has been having pleuritic chest pain, he was afebrile her d-dimer is elevated, renal functions who has been off as well patient is well-known to me for her end-stage lung disease f ibrosis and chronic emphysema with multiple medical problems including Tylenol arthritis hypertension hypertensive cardiovascular disease sick sinus syndrome history of pacemaker, her admitted chest x-ray suggestive of chronic changes no active process and fired along with cardiomegaly, computed tomography scan of the chest was negative for pulmonary embolism is 0.4 cm left-sided renal calculus seen, EKG revealed sinus rhythm with heart block and paced rhythm, kidney ultrasound is negative for any significant pathology some cyst identified however Objective - Vital Signs Vital signs: Vital Signs Temp 98.9 F 04/03/20 19:40 Pulse 60 04/03/20 19:40 Resp 18 04/03/20 19:40 BP 128/75 04/03/20 19:40 Pulse Ox 96 04/03/20 19:40 Intake & Output 04/03/20 04/03/20 04/04/20 06:59 18:59 06:59 Other: Voiding Method Bedside Commode Bedside Commode # Voids 2 1 # Bowel Movements 1 - Exam - Constitutional General appearance: average body habitus, cooperative, mild distress - Neck Neck: normal ROM Carotids: bilateral: upstroke normal Thyroid: bilateral: normal size - Respiratory Respiratory: bilateral: diminished - Cardiovascular Rhythm: regular Heart sounds: normal: S1, S2 - Gastrointestinal General gastrointestinal: decreased bowel sounds, soft - Integumentary Integumentary: normal turgor - Neurologic Neurologic: CNII-XII intact - Musculoskeletal Musculoskeletal: gait normal, generalized weakness, strength equal bilaterally - Psychiatric Psychiatric: A&O x's 3, appropriate affect, intact judgment & insight - Labs CBC & Chem 7: 04/03/20 07:30 04/03/20 07:30 Labs: Abnormal Lab Results - Last 24 Hours (Table) 04/03/20 04/03/20 04/03/20 Range/Units 07:05 07:30 07:30 RBC 3.67 L (3.80-5.40) m/uL Hgb 11.3 L (11.4-16.0) gm/dL Neutrophils # 7.8 H (1.3-7.7) k/uL Lymphocytes # 0.5 L (1.0-4.8) k/uL BUN 44 H (7-17) mg/dL Creatinine 1.49 H (0.52-1.04) mg/dL Glucose 170 H (74-99) mg/dL POC Glucose (mg/dL) 187 H (75-99) mg/dL Total Protein 5.5 L (6.3-8.2) g/dL Albumin 3.3 L (3.5-5.0) g/dL 04/03/20 04/03/20 04/03/20 Range/Units 11:49 17:23 20:37 RBC (3.80-5.40) m/uL Hgb (11.4-16.0) gm/dL Neutrophils # (1.3-7.7) k/uL Lymphocytes # (1.0-4.8) k/uL BUN (7-17) mg/dL Creatinine (0.52-1.04) mg/dL Glucose (74-99) mg/dL POC Glucose (mg/dL) 171 H 277 H 280 H (75-99) mg/dL Total Protein (6.3-8.2) g/dL Albumin (3.5-5.0) g/dL Assessment and Plan Assessment: Acute COPD exacerbation Associated congestive heart failure acute on chronic diastolic heart failure Proximal atrial fibrillation Epistaxis has resolved Left flank pain likely related to renal calculi which is nonobstructing Mild pulmonary fibrosis Chronic hypoxic respiratory failure on home oxygen at nighttime Plan: Continue bronchodilator Follow clinical course closely continue IV steroids, however they can be switched to oral Monitor and observe for flank pain May need urology evaluation if continued to have flank pain Further recommendations pending plan of care as per clinical response of the patient Time with Patient: Greater than 30
[2020-04-03] MEDS: LATANOPROST 0.005% OPHTH DROPS 2.5 ML BTL RIGHT EYE SCH (21:16)
[2020-04-03] MEDS: MONTELUKAST 10 MG TAB PO SCH (21:16)
[2020-04-04] MEDS: methylPREDNISolone SOD SUCCI 40 MG/ML 1 ML VIAL IV SCH ×3 (00:31→16:46)
[2020-04-04 06:59] LABS: Glucose,Whole Blood 188 mg/dL (75-99)
[2020-04-04] MEDS: SYMBICORT 160-4.5 MCG INHALER INHALATION SCH ×2 (07:45→20:28)
[2020-04-04] MEDS: IPRATROPIUM-ALBUTEROL 3 ML NEB INHALATION SCH ×4 (07:45→20:28)
[2020-04-04] MEDS: BIOTIN 1000 MCG PO SCH (08:02)
[2020-04-04] MEDS: INSULIN ASPART (NovoLOG) 100 UNIT/ML VIAL SQ SCH ×4 (08:03→20:30)
[2020-04-04] MEDS: VITAMIN E (DL,TOCOPHERYL ACET) 400 UNIT CAP PO SCH (08:03)
[2020-04-04] MEDS: BUMETANIDE 1 MG TAB PO SCH ×2 (08:03→16:46)
[2020-04-04] MEDS: GABAPENTIN 300 MG CAP PO SCH ×2 (08:04→20:31)
[2020-04-04] MEDS: PANTOPRAZOLE 40 MG TABLET PO SCH (08:04)
[2020-04-04] MEDS: METOPROLOL TARTRATE 50 MG TAB PO SCH ×2 (08:04→20:31)
[2020-04-04] MEDS: ASCORBIC ACID 500 MG TAB PO SCH (08:04)
[2020-04-04] MEDS: APIXABAN 2.5 MG TABLET PO SCH ×2 (08:04→20:31)
[2020-04-04] MEDS: CHOLECALCIFEROL 1,000 UNIT TAB PO SCH (08:04)
[2020-04-04] MEDS: HYDROcodone/APAP 10-325MG 1 EACH TAB PO PRN ×2 (08:05→16:46)
[2020-04-04 11:24] LABS: Glucose,Whole Blood 225 mg/dL (75-99)
--- NOTE | 2020-04-04 12:12 | P.PN ---
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 [employer] device, COPD, former nicotine dependence and hypothyroidism. She follows in the office with Dr Trevizo. She is seen and examined sitting up in bed in no acute distress. She states her breathing has improved since admission. She denies chest pain, dizziness or palpitations. Echocardiogram reveals preserved LV systolic function with ejection fraction 55-60%, grade 1 diastolic dysfunction, moderate TR and mild pulmonary hypertension with an RVSP of 45 mmHg. Blood pressure 188/80 heart rate 63 afebrile maintaining oxygen saturation room air. Currently maintained on Eliquis 2.5 mg twice a day, Bumex 2 mg twice a day and Lopressor 50 mg twice a day. PHYSICAL EXAMINATION CONSTITUTIONAL: No apparent distress. HEENT: Head is normocephalic. Pupils are equal, round. Sclerae anicteric. Mucous membranes of the mouth are moist. No JVD. No carotid bruit. CHEST EXAMINATION: Lungs are clear to auscultation. No chest wall tenderness is noted on palpation or with deep breathing. Diminished bilaterally. HEART EXAMINATION: Irregular rate and rhythm. S1, S2 heard. No murmurs, gallops or rub. EXTREMITIES: 1+ peripheral pulses, no lower extremity edema and no calf tenderness. 2 areas of ulceration noted on the medial aspect of the left lower extremity. Generalized erythema bilaterally. ASSESSMENT Acute on chronic diastolic heart failure, mild. Seems to have improved since admission. Acute exacerbation of COPD Acute kidney injury Chronic back pain Hypertension Paroxysmal atrial fibrillation on long-term anticoagulation Permanent pacemaker implantation secondary to tachybradycardia syndrome PLAN Stable from a cardiac perspective. Follow-up in the office with Dr. Trevizo in one to 2 weeks. Bilateral JAYASHREE hose to be applied daily when awake. Nurse Practitioner note has been reviewed, I agree with a documented findings and plan of care. Patient was seen and examined. Objective - Vital Signs Vital signs: Vital Signs Temp 97.7 F 04/04/20 06:45 Pulse 72 04/04/20 11:39 Resp 18 04/04/20 06:45 BP 188/80 04/04/20 06:45 Pulse Ox 96 04/04/20 06:45 Intake & Output 04/03/20 04/04/20 04/04/20 18:59 06:59 18:59 Output Total 400 Balance -400 Output: Urine 400 Other: Voiding Method Bedside Commode Bedside Commode Bedside Commode # Voids 1 1 1 # Bowel Movements 1 - Labs CBC & Chem 7: 04/03/20 07:30 04/03/20 07:30 Labs: Abnormal Lab Results - Last 24 Hours (Table) 04/03/20 04/03/20 04/04/20 Range/Units 17:23 20:37 06:56 POC Glucose (mg/dL) 277 H 280 H 188 H (75-99) mg/dL 04/04/20 Range/Units 11:23 POC Glucose (mg/dL) 225 H (75-99) mg/dL
[2020-04-04 16:38] LABS: Glucose,Whole Blood 193 mg/dL (75-99)
--- NOTE | 2020-04-04 18:19 | P.PN ---
Subjective Progress Note Date: 04/04/20 Susan Bhatt, he is an 84-year-old female who presented to [facility] emergency room with a chief complaint of worsening shortness of breath patient was also colaining of left sided lower rib area pain, and difficulty to take deep breath, he was evaluated in the emergency room, vitals on arrival revealed a temperature of 98 espiration 24 blood pressure 179/74 d-dimer was elevated at 1.04 BUN was elevated at 13 9 and creatinine at 1.5 tochest x-ray revealed evidence of cardiomegaly otherwise no acute process, computed tomography scan angiogram of the chest, did not reveal any evidence of pulmonary embolism, there was evidence of mild heart failure, there was evidence of pulmonary emphysema and pulmonary fibrosis. Patient was started on IV Solu- Medrol and inhaled bronchodilators and was admitted to medical floor, pulmonary and cardiology consultation requested, her animation camera operator is Dr. Inessa Lazar who does not come to the hospital at this time Dr. Mitchell who is covering for him was consult, atient is also well known to Dr. Trevizo her emr analyst. patient has a known history of atrial fibrillation, congestive heart failure, COPD, pulmonary fibrosis, history of hypertension, history of rheumatoid arthritis, and history of sick sinus syndrome with history of pacemaker placemen t. on review of sms there is nills no headache or dizziness no chest pain, no cough no nausea or vomiting no abdominal pain, no diarrhea no burning was urination no frequency or urgency and no hematuria there is no change in vision speech or gait and no numbness or weakness in any of the extremities. On 04/03/2020 patient was seen and examined on the medical floor she is alert and oriented 3 in no apparent distress there is no fever or chills no headache or dizziness no chest pain or shortness of breath is improving there is occasional cough no nausea or vomiting no abdominal pain no diarrhea no burning with urination no frequency or urgency and no hematuria, lower extremity swelling has improved. On 04/04/2020 patient was seen and examined on the medical floor she is alert and oriented 3 in no apparent distress there is no fever or chills no headache or dizziness no chest pain , shortness of breath has improved there is occasional cough no nausea or vomiting no abdominal pain no diarrhea no burning with urination no frequency or urgency and no hematuria Objective - Vital Signs Vital signs: Vital Signs Temp 97.7 F 04/04/20 06:45 Pulse 68 04/04/20 07:59 Resp 18 04/04/20 06:45 BP 188/80 04/04/20 06:45 Pulse Ox 96 04/04/20 06:45 Intake & Output 04/03/20 04/04/20 04/04/20 18:59 06:59 18:59 Output Total 400 Balance -400 Output: Urine 400 Other: Voiding Method Bedside Commode Bedside Commode # Voids 1 1 1 # Bowel Movements 1 - Exam in general patient is alert and oriented 3 in no apparent distress HEENT head normocephalic and atraumatic Neck is supple no JVD no goiter no lymphadenopathy Chest exam reveals a few scattered rhonchi no wheezing Cardiac exam reveals regular heart sounds S1 and S2 no gallops no murmurs Abdomen is soft nontender no organomegaly with normal bowel sounds Extremity exam reveals mild edema there is a scabbing ulcer in the left pretibial area Neurological examination reveals no gross focal deficit - Labs CBC & Chem 7: 04/03/20 07:30 04/03/20 07:30 Labs: Abnormal Lab Results - Last 24 Hours (Table) 04/03/20 04/03/20 04/03/20 Range/Units 11:49 17:23 20:37 POC Glucose (mg/dL) 171 H 277 H 280 H (75-99) mg/dL 04/04/20 Range/Units 06:56 POC Glucose (mg/dL) 188 H (75-99) mg/dL Assessment and Plan Plan: 1. worsening shortness of breath, multi-factorial related to COPD exacerbation and underlying congestive heart failure, patient was started on IV Solu-Medrol, he was continued on oral Bumex, will monitor kidney function closely 2. Underlying history of congestive heart failure, likely diastolic with check echocardiogram 3. Acute exacerbation of chronic obstructive pulmonary disease patient started on IV Solu-Medrol and inhaled bronchodilators pulmonary consultation was requested 4. paroxysmal atrial fibrillation maintained on Eliquis continue 5. previous history of sick sinus syndrome with pacemaker placement 6. Left lower extremity cellulitis patient recently finished a course of oral antibiotic, there is a scabbing ulcer in the left pretibial area, Will consult Dr. Stark infectious disease 7. left flank pain Will check kidney ultrasound 8. Medication and labs were reviewed please see orders will follow closely 9. Confusion likely related to medications, at this time dose of Solu-Medrol was decreased to 40 mg IV every 8 hours, dialogued was discontinued and dose of [place] was increased to 10 mg every 8 hours, will recheck in a.m.
[2020-04-04] MEDS: MONTELUKAST 10 MG TAB PO SCH (20:31)
[2020-04-04] MEDS: LATANOPROST 0.005% OPHTH DROPS 2.5 ML BTL RIGHT EYE SCH (20:31)
[2020-04-04 20:35] LABS: Glucose,Whole Blood 217 mg/dL (75-99)
--- NOTE | 2020-04-04 23:45 | P.CONS ---
History of Present Illness - Reason for Consult Consult date: 04/04/20 Left lower extremity wound and question cellulitis Requesting physician: Elham Kumar - Chief Complaint Shortness of breath x days and left leg wound - History of Present Illness Patient is 84-year-old female with a past medical history significant for COPD/CHF in this patient presented to the hospital a few days ago. She complains of increasing shortness of breath patient's symptom has been getting worse for a few days before presenting to the hospital Patient also have a cough which has been [id number] intensity involving the sputum and denies having any URI symptoms patient also complaining of increasing swelling of lower extremity and has developed ulceration to the left mid the leg the last few days from ruptured blister patient did have mild aching pain to the left leg intensity 2-3 out of 10 and no radiation patient currently denies having any purulent drainage from her left leg wound workup during this admission did show the patient has been afebrile did have a normal white count patient did have a chest x-ray followed by CT angiogram of the chest which was negative for PE and did not show any pneumonia patient is currently being managed by cardiology and pulmonary service I was asked to see the patient regarding her left lower e xtremity wound and possible cellulitis Review of Systems Positive point has been mentioned in the HPI rest of the systems are negative Past Medical History Past Medical History: Atrial Fibrillation, Asthma, Heart Failure, COPD, H ypertension, Thyroid Disorder History of Any Multi-Drug Resistant Organisms: None Reported Past Surgical History: AICD, Hysterectomy, Pacemaker, Tonsillectomy Additional Past Surgical History / Comment(s): urethral suspension, ectopic, thyroid biopsy, cataract, glaucoma sx AICD/Pacer implant done in Apr, cardiac ablation 05/27/2018 Type of Cardiac Device: Permanent Pacemaker, AICD Device Placement Date:: Apr 2018 Past Psychological History: No Psychological Hx Reported Smoking Status: Former smoker Past Alcohol Use History: None Reported Past Drug Use History: None Reported Medications and Allergies Home Medications Medication Instructions Recorded Confirmed Type Ascorbic Acid [Vitamin C] 500 mg PO DAILY 04/27/18 04/01/20 History Carboxymethylcellulose Sodium 1 drop BOTH EYES BID PRN 04/27/18 04/01/20 History [Refresh Tears] Cholecalciferol (Vitamin D3) 2,000 unit PO DAILY 04/27/18 04/01/20 History [Vitamin D3] Claritin 12 Hour Reditabs 1 tab PO Q12H PRN 04/27/18 04/01/20 History Fluticasone/Vilanterol [Breo 1 puff INHALATION RT-DAILY 04/27/18 04/01/20 History Ellipta 200-25 Mcg INH] Ipratropium/Albuterol Sulfate 1 puff INHALATION RT-QID PRN 04/27/18 04/01/20 History [Combivent Respimat Inhaler] Latanoprost [Xalatan 0.005%] 1 drop RIGHT EYE HS 04/27/18 04/01/20 History Montelukast [Singulair] 10 mg PO HS 04/27/18 04/01/20 History Apixaban [Eliquis] 2.5 mg PO BID tablet 05/07/18 04/01/20 Rx Bumetanide [BUMEX] 2 mg PO BID@0900,1600 #0 tab 05/31/18 04/01/20 Rx Gabapentin [Neurontin] 300 mg PO BID cap 05/31/18 04/01/20 Rx Metoprolol Tartrate [Lopressor] 50 mg PO BID tab 05/31/18 04/01/20 Rx Biotin 1,000mcg 1,000 mcg PO DAILY 04/01/20 04/01/20 History HYDROcodone/APAP 7.5-325MG [[place] 1 tab PO Q8H PRN 04/01/20 04/01/20 History 7.5-325] Mupirocin [Mupirocin 2%] 1 applic TOPICAL DAILY PRN 04/01/20 04/01/20 History Potassium Chloride 10 meq PO DAILY PRN 04/01/20 04/01/20 History Vitamin E 400 mg PO DAILY 04/01/20 04/01/20 History Allergies Allergy/AdvReac Type Severity Reaction Status Date / Time amlodipine Allergy Unknown Verified 04/01/20 17:26 benazepril [From Lotrel] Allergy Unknown Verified 04/01/20 17:26 cephalexin [From Keflex] Allergy Anaphylaxis Verified 04/01/20 17:26 Cephalosporins Allergy Anaphylaxis Verified 04/01/20 17:26 codeine Allergy Unknown Verified 04/01/20 17:26 gabapentin Allergy Swelling Verified 04/01/20 17:26 Iodinated Contrast Media Allergy Anaphylaxis Verified 04/01/20 17:26 [Iodinated Contrast- Oral and IV Dye] nebivolol [From Bystolic] Allergy Unknown Verified 04/01/20 17:26 olmesartan [From Benicar] Allergy Unknown Verified 04/01/20 17:26 Penicillins Allergy Anaphylaxis Verified 04/01/20 17:26 Sulfa (Sulfonamide Allergy Anaphylaxis Verified 04/01/20 17:26 Antibiotics) apixaban [From Eliquis] AdvReac BONE PAIN Verified 04/01/20 17:26 clonidine AdvReac BLURRED Verified 04/01/20 17:26 VISION, DIZZY, SCRATCHY THROAT furosemide [From Lasix] AdvReac Nausea & Verified 04/01/20 17:26 Vomiting & Diarrhea hydralazine AdvReac CHILLS, Verified 04/01/20 17:26 SHAKING, LIGHT HEADED, FACE FLUSHED isosorbide [From Imdur] AdvReac Rapid Verified 04/01/20 17:26 Heart Rate labetalol AdvReac Dyspnea Verified 04/01/20 17:26 lisinopril AdvReac Nausea & Verified 04/01/20 17:26 Vomiting & Diarrhea/COUGH PAPER MEDICAL TAPE Allergy Unknown Uncoded 04/01/20 17:26 Physical Exam Vitals: Vital Signs Temp Pulse Pulse Resp BP Pulse Ox 04/04/20 11:39 72 04/04/20 11:27 72 04/04/20 07:59 68 04/04/20 07:48 68 04/04/20 06:45 97.7 F 63 18 188/80 96 04/04/20 01:38 98.3 F 56 L 18 147/73 98 04/03/20 21:32 70 04/03/20 21:21 68 04/03/20 19:40 98.9 F 60 18 128/75 96 04/03/20 16:33 64 04/03/20 16:24 62 04/03/20 15:00 97.8 F 61 20 127/63 98 Intake and Output 04/03/20 04/04/20 04/04/20 22:59 06:59 14:59 Output Total 400 Balance -400 Output: Urine 400 Other: Voiding Method Bedside Commode Bedside Commode # Voids 1 1 1 # Bowel Movements 1 GENERAL DESCRIPTION: An elderly female lying in bed, no distress. No tachypnea or accessory muscle of respiration use. HEENT: Shows Pallor , no scleral icterus. Oral mucous membrane is dry. No pharyngeal erythema or thrush NECK: Trachea central, no thyromegaly. LUNGS: Unlabored breathing. Decreased this from the base. No wheeze or crackle. HEART: S1, S2, regular rate and rhythm. No loud murmur ABDOMEN: Soft, no tenderness , guarding or rigidity, no organomegaly EXTREMITIES: Left medial leg with superficial ulceration minimal surrounding swelling slightly warm and redness SKIN: No rash, no masses palpable. NEUROLOGICAL: The patient is awake, alert, oriented x3, mood and affect normal. Results CBC & Chem 7: 04/03/20 07:30 04/03/20 07:30 Labs: Abnormal Lab Results - Last 24 Hours (Table) 04/03/20 04/03/20 04/04/20 Range/Units 17:23 20:37 06:56 POC Glucose (mg/dL) 277 H 280 H 188 H (75-99) mg/dL 04/04/20 Range/Units 11:23 POC Glucose (mg/dL) 225 H (75-99) mg/dL Assessment and Plan Assessment: 1- patient with left lower extremity venous stasis ulcer with mild cellulitis likely from gram-positive skin truman 2- Patient with multiple antibiotic ALLERGIES that would limit the number of an tibiotic safe to use (1) Left leg cellulitis Current Visit: Yes Status: Acute Code(s): L03.116 - CELLULITIS OF LEFT LOWER LIMB SNOMED Code(s): 537263196 (2) Leg wound, left Current Visit: Yes Status: Acute Code(s): S81.802A - UNSPECIFIED OPEN WOUND, LEFT LOWER LEG, INITIAL ENCOUNTER SNOMED Code(s): 804623805 Plan: 1- local wound care to the left leg wound with dry Aquacel silver dressing followed by Abran wrap from just above the toe to below the knee to be changed every 48 hour 2- clindamycin 300 mg by mouth every 8 hours We will follow on clinical condition and cultures to further adjust medication if needed Thank you for this consultation will follow this patient with you
[2020-04-05] MEDS: HYDROcodone/APAP 10-325MG 1 EACH TAB PO PRN ×4 (00:10→23:50)
[2020-04-05] MEDS: methylPREDNISolone SOD SUCCI 40 MG/ML 1 ML VIAL IV SCH ×3 (00:38→15:41)
[2020-04-05 07:07] LABS: Glucose,Whole Blood 195 mg/dL (75-99)
[2020-04-05] MEDS: SYMBICORT 160-4.5 MCG INHALER INHALATION SCH ×2 (08:16→20:00)
[2020-04-05] MEDS: IPRATROPIUM-ALBUTEROL 3 ML NEB INHALATION SCH ×4 (08:16→20:00)
[2020-04-05] MEDS: INSULIN ASPART (NovoLOG) 100 UNIT/ML VIAL SQ SCH ×4 (08:34→21:07)
[2020-04-05] MEDS: PANTOPRAZOLE 40 MG TABLET PO SCH (08:37)
[2020-04-05] MEDS: APIXABAN 2.5 MG TABLET PO SCH ×2 (10:03→21:07)
[2020-04-05] MEDS: ASCORBIC ACID 500 MG TAB PO SCH (10:03)
[2020-04-05] MEDS: BUMETANIDE 1 MG TAB PO SCH ×2 (10:04→15:38)
[2020-04-05] MEDS: CHOLECALCIFEROL 1,000 UNIT TAB PO SCH (10:05)
[2020-04-05] MEDS: CLINDAMYCIN 150 MG CAP PO SCH ×3 (10:06→23:51)
[2020-04-05] MEDS: GABAPENTIN 300 MG CAP PO SCH ×2 (10:07→21:07)
[2020-04-05] MEDS: METOPROLOL TARTRATE 50 MG TAB PO SCH ×2 (10:07→21:07)
[2020-04-05] MEDS: BIOTIN 1000 MCG PO SCH (10:09)
[2020-04-05] MEDS: VITAMIN E (DL,TOCOPHERYL ACET) 400 UNIT CAP PO SCH (10:11)
[2020-04-05 11:26] LABS: Glucose,Whole Blood 168 mg/dL (75-99)
[2020-04-05 16:41] LABS: Glucose,Whole Blood 263 mg/dL (75-99)
--- NOTE | 2020-04-05 17:45 | PN ---
PROGRESS NOTE DATE OF SERVICE: 04/05/2020 REASON FOR FOLLOWUP: Left lower extremity venostasis ulcer and cellulitis. INTERVAL HISTORY: The patient is currently afebrile. The patient is breathing more comfortably. The patient denies having any chest pain or shortness of breath. Occasional cough. No significant discomfort to the left leg. No diarrhea. PHYSICAL EXAMINATION: Blood pressure is 145/72, pulse of 75, temperature 97.9. She is 99% on 2 L nasal cannula. General description is an elderly female lying in bed in no distress. RESPIRATORY SYSTEM: Unlabored breathing. Clear to auscultation anteriorly. HEART: S1, S2. Regular rate and rhythm. ABDOMEN: Soft. No tenderness. Left leg is currently dressed up. No obvious drainage on the dressing. LABS: No new labs have been obtained today. DIAGNOSTIC IMPRESSION AND PLAN: Patient with left lower extremity venostasis ulcer with secondary cellulitis. Local care to continue with dry Aquacel Silver dressing and short course of oral clindamycin. Monitor clinical course closely. MMODL / IJN: [id number] /
--- NOTE | 2020-04-05 19:16 | P.PN ---
Subjective Progress Note Date: 04/05/20 Principal diagnosis: Acute COPD exacerbation Associated congestive heart failure acute on chronic diastolic heart failure Proximal atrial fibrillation Epistaxis has resolved Left flank pain likely related to renal calculi which is nonobstructing Mild pulmonary fibrosis Chronic hypoxic respiratory failure on home oxygen at nighttime 04/05/2020, patient is awake and alert breathing comfortably denies any chest pain, she is being treated with cellulitis of lower lower extremity her shortness of breath has been stable no other specific complains 04/03/2020, patient seen eval examined during the rounds, cough shortness of breath still there was severity has improved, less confused today, plan to continue current therapy follow-up Observe clinical course closely patient has been eval by cardiovascular services This is a pleasant 84-year-old female came into the hospital with increasing shortness of breath she has some ongoing chest pain also has epistaxis going on, patient has a chronic history of lung issues and congestive heart failure along with neuropathy, she describes her lower left chest has been having pleuritic chest pain, he was afebrile her d-dimer is elevated, renal functions who has been off as well patient is well-known to me for her end-stage lung disease fibrosis and chronic emphysema with multiple medical problems including Tylenol arthritis hypertension hypertensive cardiovascular disease sick sinus syndrome history of pacemaker, her admitted chest x-ray suggestive of chronic changes no active process and fired along with cardiomegaly, computed tomography scan of the chest was negative for pulmonary embolism is 0.4 cm left-sided renal calculus seen, EKG revealed sinus rhythm with heart block and paced rhythm, kidney ultrasound is negative for any significant pathology some cyst identified however Objective - Vital Signs Vital signs: Vital Signs Temp 97.9 F 04/05/20 14:28 Pulse 76 04/05/20 16:20 Resp 20 04/05/20 14:28 BP 145/70 04/05/20 14:28 Pulse Ox 99 04/05/20 14:28 Intake & Output 04/05/20 04/05/20 04/06/20 06:59 18:59 06:59 Intake Total 300 Balance 300 Intake: Oral 300 Other: Voiding Method Bedside Commode Bedside Commode # Voids 1 2 - Exam - Constitutional General appearance: average body habitus, cooperative, mild distress - Neck Neck: normal ROM Carotids: bilateral: upstroke normal Thyroid: bilateral: normal size - Respiratory Respiratory: bilateral: diminished - Cardiovascular Rhythm: regular Heart sounds: normal: S1, S2 - Gastrointestinal General gastrointestinal: decreased bowel sounds, soft - Integumentary Integumentary: normal turgor - Neurologic Neurologic: CNII-XII intact - Musculoskeletal Musculoskeletal: gait normal, generalized weakness, strength equal bilaterally - Psychiatric Psychiatric: A&O x's 3, appropriate affect, intact judgment & insight - Labs CBC & Chem 7: 04/03/20 07:30 04/03/20 07:30 Labs: Abnormal Lab Results - Last 24 Hours (Table) 04/04/20 04/05/20 04/05/20 Range/Units 20:01 07:05 11:24 POC Glucose (mg/dL) 217 H 195 H 168 H (75-99) mg/dL 04/05/20 Range/Units 16:39 POC Glucose (mg/dL) 263 H (75-99) mg/dL Assessment and Plan Assessment: Acute COPD exacerbation Associated congestive heart failure acute on chronic diastolic heart failure Proximal atrial fibrillation Epistaxis has resolved Left flank pain likely related to renal calculi which is nonobstructing Mild pulmonary fibrosis Chronic hypoxic respiratory failure on home oxygen at nighttime Plan: Continue bronchodilator Follow clinical course closely continue IV steroids, however they can be switched to oral Monitor and observe for flank pain May need urology evaluation if continued to have flank pain Further recommendations pending plan of care as per clinical response of the patient Time with Patient: Greater than 30
--- NOTE | 2020-04-05 19:22 | P.PN ---
Subjective Progress Note Date: 04/05/20 Susan Bhatt, he is an 84-year-old female who presented to [facility] emergency room with a chief complaint of worsening shortness of breath patient was also colaining of left sided lower rib area pain, and difficulty to take deep breath, he was evaluated in the emergency room, vitals on arrival revealed a temperature of 98 espiration 24 blood pressure 179/74 d-dimer was elevated at 1.04 BUN was elevated at 13 9 and creatinine at 1.5 tochest x-ray revealed evidence of cardiomegaly otherwise no acute process, computed tomography scan angiogram of the chest, did not reveal any evidence of pulmonary embolism, there was evidence of mild heart failure, there was evidence of pulmonary emphysema and pulmonary fibrosis. Patient was started on IV Solu- Medrol and inhaled bronchodilators and was admitted to medical floor, pulmonary and cardiology consultation requested, her machine room operator is Dr. Inessa Lazar who does not come to the hospital at this time Dr. Mitchell who is covering for him was consult, atient is also well known to Dr. 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 patient has a known history of atrial fibrillation, congestive heart failure, COPD, pulmonary fibrosis, history of hypertension, history of rheumatoid arthritis, and history of sick sinus syndrome with history of pacemaker placemen t. on review of sms there is nills no headache or dizziness no chest pain, no cough no nausea or vomiting no abdominal pain, no diarrhea no burning was urination no frequency or urgency and no hematuria there is no change in vision speech or gait and no numbness or weakness in any of the extremities. On 04/03/2020 patient was seen and examined on the medical floor she is alert and oriented 3 in no apparent distress there is no fever or chills no headache or dizziness no chest pain or shortness of breath is improving there is occasional cough no nausea or vomiting no abdominal pain no diarrhea no burning with urination no frequency or urgency and no hematuria, lower extremity swelling has improved. On 04/04/2020 patient was seen and examined on the medical floor she is alert and oriented 3 in no apparent distress there is no fever or chills no headache or dizziness no chest pain , shortness of breath has improved there is occasional cough no nausea or vomiting no abdominal pain no diarrhea no burning with urination no frequency or urgency and no hematuria On 04/05/2020 patient was seen and examined on the medical floor she is alert and oriented 3 in her shortness of breath has improved there is no chest pain she has occasional cough no fever or chills no nausea or vomiting no abdominal pain no diarrhea and no urinary symptoms. At this time will discontinue Solu- Medrol and start prednisone 40 mg by mouth daily starting tomorrow if patient is stable she would be discharged home tomorrow Objective - Vital Signs Vital signs: Vital Signs Temp 97.9 F 04/05/20 14:28 Pulse 76 04/05/20 16:20 Resp 20 04/05/20 14:28 BP 145/70 04/05/20 14:28 Pulse Ox 99 04/05/20 14:28 Intake & Output 04/05/20 04/05/20 04/06/20 06:59 18:59 06:59 Intake Total 300 Balance 300 Intake: Oral 300 Other: Voiding Method Bedside Commode Bedside Commode # Voids 1 2 - Exam in general patient is alert and oriented 3 in no apparent distress HEENT head normocephalic and atraumatic Neck is supple no JVD no goiter no lymphadenopathy Chest exam reveals a few scattered rhonchi no wheezing Cardiac exam reveals regular heart sounds S1 and S2 no gallops no murmurs Abdomen is soft nontender no organomegaly with normal bowel sounds Extremity exam reveals mild edema there is a scabbing ulcer in the left pretibial area Neurological examination reveals no gross focal deficit - Labs CBC & Chem 7: 04/03/20 07:30 04/03/20 07:30 Labs: Abnormal Lab Results - Last 24 Hours (Table) 04/04/20 04/05/20 04/05/20 Range/Units 20:01 07:05 11:24 POC Glucose (mg/dL) 217 H 195 H 168 H (75-99) mg/dL 04/05/20 Range/Units 16:39 POC Glucose (mg/dL) 263 H (75-99) mg/dL Assessment and Plan Plan: 1. worsening shortness of breath, multi-factorial related to COPD exacerbation and underlying congestive heart failure, patient was started on IV Solu-Medrol, he was continued on oral Bumex, will monitor kidney function closely 2. Underlying history of congestive heart failure, likely diastolic with check echocardiogram 3. Acute exacerbation of chronic obstructive pulmonary disease patient started on IV Solu-Medrol and inhaled bronchodilators pulmonary consultation was requested 4. paroxysmal atrial fibrillation maintained on Eliquis continue 5. previous history of sick sinus syndrome with pacemaker placement 6. Left lower extremity cellulitis patient recently finished a course of oral antibiotic, there is a scabbing ulcer in the left pretibial area, Will consult Dr. Stark infectious disease 7. left flank pain Will check kidney ultrasound 8. Medication and labs were reviewed please see orders will follow closely 9. Confusion likely related to medications, at this time dose of Solu-Medrol was decreased to 40 mg IV every 8 hours, dialogued was discontinued and dose of [place] was increased to 10 mg every 8 hours, will recheck in a.m.
[2020-04-05 20:57] LABS: Glucose,Whole Blood 246 mg/dL (75-99)
[2020-04-05] MEDS: MONTELUKAST 10 MG TAB PO SCH (21:07)
[2020-04-05] MEDS: LATANOPROST 0.005% OPHTH DROPS 2.5 ML BTL RIGHT EYE SCH (21:08)
[2020-04-06 06:58] LABS: Glucose,Whole Blood 137 mg/dL (75-99)
[2020-04-06] MEDS: BIOTIN 1000 MCG PO SCH (07:18)
[2020-04-06] MEDS: INSULIN ASPART (NovoLOG) 100 UNIT/ML VIAL SQ SCH ×2 (07:51→13:06)
[2020-04-06] MEDS: PANTOPRAZOLE 40 MG TABLET PO SCH (07:52)
[2020-04-06] MEDS: HYDROcodone/APAP 10-325MG 1 EACH TAB PO PRN (07:54)
[2020-04-06] MEDS ORDERED: predniSONE 20 MG TAB PO SCH (09:00)
[2020-04-06] MEDS: APIXABAN 2.5 MG TABLET PO SCH (09:07)
[2020-04-06] MEDS: CHOLECALCIFEROL 1,000 UNIT TAB PO SCH (09:08)
[2020-04-06] MEDS: ASCORBIC ACID 500 MG TAB PO SCH (09:08)
[2020-04-06] MEDS: METOPROLOL TARTRATE 50 MG TAB PO SCH (09:09)
[2020-04-06] MEDS: GABAPENTIN 300 MG CAP PO SCH (09:09)
[2020-04-06] MEDS: CLINDAMYCIN 150 MG CAP PO SCH (09:10)
[2020-04-06] MEDS: VITAMIN E (DL,TOCOPHERYL ACET) 400 UNIT CAP PO SCH (09:10)
[2020-04-06] MEDS: BUMETANIDE 1 MG TAB PO SCH (09:11)
[2020-04-06] MEDS: IPRATROPIUM-ALBUTEROL 3 ML NEB INHALATION SCH ×2 (09:43→11:50)
[2020-04-06] MEDS: SYMBICORT 160-4.5 MCG INHALER INHALATION SCH (09:43)
[2020-04-06 11:19] LABS: Glucose,Whole Blood 214 mg/dL (75-99)
[2020-04-06 12:57] LABS: Glucose,Whole Blood 201 mg/dL (75-99)
[2020-04-06 14:14] VITALS: BP 129/54; PULSE 64; RESP 20; TEMP 97.5
[2020-04-06 14:15] VITALS: BMI 29.5
--- NOTE | 2020-04-06 14:24 | PN ---
PROGRESS NOTE DATE OF SERVICE: 04/06/2020. REASON FOR FOLLOWUP: Left lower extremity venostasis ulcer and cellulitis. INTERVAL HISTORY: Patient is currently afebrile, patient is breathing comfortably. The patient denies having any chest pain, shortness of breath or cough. No nausea, no vomiting. Overall pain and discomfort to the left leg has improved. PHYSICAL EXAMINATION: Blood pressure is 168/76, pulse of 62, temperature is 97.9, she is 99% on 2 L. General description is an elderly female, lying in bed in no distress. RESPIRATORY SYSTEM: Unlabored breathing, clear to auscultation anteriorly. HEART: S1, S2. Regular rate and rhythm. ABDOMEN: Soft, no tenderness. Left leg swelling and redness has improved. DIAGNOSTIC IMPRESSION AND PLAN: Patient with left lower extremity wound with cellulitis. Patient to continue local wound care with dry Aquacel Silver dressing and mild compression. Follow up in the [facility]. Gentamicin can be safely discontinued on discharge. MMODL / IJN: [id number] /
--- NOTE | 2020-04-06 14:59 | P.DS ---
Providers Date of admission: 04/01/20 22:05 Expected date of discharge: 04/06/20 Attending physician: Elham Kumar Consults: 04/01/20 22:03 Consult Physician Routine Consulting Provider: Polo Mitchell Consult Reason/Comments: dyspnea Do you want consulting provider notified?: Yes 04/02/20 13:16 Consult Physician Routine Consulting Provider: Gaston Trevizo Consult Reason/Comments: shortness of breath Do you want consulting provider notified?: Yes 04/03/20 17:51 Consult Physician Routine Consulting Provider: Randy Andino Consult Reason/Comments: LEFT BELLO ULCERS Do you want consulting provider notified?: Yes Primary care physician: [facility] Course: Diagnosis on discharge: 1. worsening shortness of breath, multi-factorial related to COPD exacerbation and underlying congestive heart failure, patient was started on IV Solu-Medrol, he was continued on oral Bumex, will monitor kidney function closely 2. Underlying history of congestive heart failure, likely diastolic with check echocardiogram 3. Acute exacerbation of chronic obstructive pulmonary disease patient started on IV Solu-Medrol and inhaled bronchodilators pulmonary consultation was requested 4. paroxysmal atrial fibrillation maintained on Eliquis continue 5. previous history of sick sinus syndrome with pacemaker placement 6. Left lower extremity cellulitis patient recently finished a course of oral antibiotic, there is a scabbing ulcer in the left pretibial area, Will consult Dr. Andino infectious disease 7. left flank pain Will check kidney ultrasound 8. Medication and labs were reviewed please see orders will follow closely 9. Confusion likely related to medications, at this time dose of Solu-Medrol was decreased to 40 mg IV every 8 hours, dialogued was discontinued and dose of [place] was increased to 10 mg every 8 hours, will recheck in a.m. Hospital course: Susan Bhatt, he is an 84-year-old female who presented to [facility] emergency room with a chief complaint of worsening shortness of breath patient was also colaining of left sided lower rib area pain, and difficulty to take deep breath, he was evaluated in the emergency room, vitals on arrival revealed a temperature of 98 espiration 24 blood pressure 179/74 d-dimer was elevated at 1.04 BUN was elevated at 13 9 and creatinine at 1.5 tochest x-ray revealed evidence of cardiomegaly otherwise no acute process, computed tomography scan angiogram of the chest, did not reveal any evidence of pulmonary embolism, there was evidence of mild heart failure, there was evidence of pulmonary emphysema and pulmonary fibrosis. Patient was started on IV Solu- Medrol and inhaled bronchodilators and was admitted to medical floor, pulmonary and cardiology consultation requested, her water resources engineer is Dr. Inessa Lazar who does not come to the hospital at this time Dr. Mitchell who is covering for him was consult, atient is also well known to Dr. Trevizo her director of event management. patient has a known history of atrial fibrillation, congestive heart failure, COPD, pulmonary fibrosis, history of hypertension, history of rheumatoid arthritis, and history of sick sinus syndrome with history of pacemaker placement. on review of sms there is nills no headache or dizziness no chest pain, no cough no nausea or vomiting no abdominal pain, no diarrhea no burning was urination no frequency or urgency and no hematuria there is no change in vision speech or gait and no numbness or weakness in any of the extremities. On 04/03/2020 patient was seen and examined on the medical floor she is alert and oriented 3 in no apparent distress there is no fever or chills no headache or dizziness no chest pain or shortness of breath is improving there is occasional cough no nausea or vomiting no abdominal pain no diarrhea no burning with urination no frequency or urgency and no hematuria, lower extremity swelling has improved. On 04/04/2020 patient was seen and examined on the medical floor she is alert and oriented 3 in no apparent distress there is no fever or chills no headache or dizziness no chest pain , shortness of breath has improved there is occasional cough no nausea or vomiting no abdominal pain no diarrhea no burning with urination no frequency or urgency and no hematuria On 04/05/2020 patient was seen and examined on the medical floor she is alert and oriented 3 in her shortness of breath has improved there is no chest pain she has occasional cough no fever or chills no nausea or vomiting no abdominal pain no diarrhea and no urinary symptoms. At this time will discontinue Solu- Medrol and start prednisone 40 mg by mouth daily starting tomorrow if patient is stable she would be discharged home tomorrow On 04/06/2020 patient was seen and examined on the medical floor she is alert and oriented 3 in no apparent distress there is no fever or chills no headache or dizziness no chest pain no shortness of breath no cough no nausea or vomiting no abdominal pain no diarrhea no burning with urination no frequency or urgency and no hematuria. Patient has been cleared by pulmonary and cardiology to be discharged home with follow in the office in 2-3 days she was given a prescription for clindamycin and a prescription for prednisone taper Plan - Discharge Summary New Discharge Prescriptions: New Clindamycin [Cleocin] 300 mg PO TID 5 Days #15 cap predniSONE [Deltasone] 40 mg PO DAILY tab HYDROcodone/APAP 10-325MG [[place] 10-325] 1 each PO Q8H PRN tab PRN Reason: Pain Pantoprazole [Protonix] 40 mg PO AC-BRKFST tablet.dr Continue Ascorbic Acid [Vitamin C] 500 mg PO DAILY Cholecalciferol (Vitamin D3) [Vitamin D3] 2,000 unit PO DAILY Carboxymethylcellulose Sodium [Refresh Tears] 1 drop BOTH EYES BID PRN PRN Reason: dry eyes Montelukast [Singulair] 10 mg PO HS Latanoprost [Xalatan 0.005%] 1 drop RIGHT EYE HS Ipratropium/Albuterol Sulfate [Combivent Respimat Inhaler] 1 puff INHALATION RT-QID PRN PRN Reason: Shortness Of Breath Fluticasone/Vilanterol [Breo Ellipta 200-25 Mcg INH] 1 puff INHALATION RT- DAILY Apixaban [Eliquis] 2.5 mg PO BID tablet Bumetanide [BUMEX] 2 mg PO BID@0900,1600 #0 tab Gabapentin [Neurontin] 300 mg PO BID cap Metoprolol Tartrate [Lopressor] 50 mg PO BID tab Biotin 1,000mcg 1,000 mcg PO DAILY Potassium Chloride 10 meq PO DAILY PRN PRN Reason: low potassium Vitamin E 400 mg PO DAILY Mupirocin [Mupirocin 2%] 1 applic TOPICAL DAILY PRN PRN Reason: Rash Discontinued Claritin 12 Hour Reditabs 1 tab PO Q12H PRN PRN Reason: Allergy Symptoms HYDROcodone/APAP 7.5-325MG [[place] 7.5-325] 1 tab PO Q8H PRN PRN Reason: Pain Discharge Medication List Ascorbic Acid [Vitamin C] 500 mg PO DAILY 04/27/18 [History] Carboxymethylcellulose Sodium [Refresh Tears] 1 drop BOTH EYES BID PRN 04/27/18 [History] Cholecalciferol (Vitamin D3) [Vitamin D3] 2,000 unit PO DAILY 04/27/18 [History] Fluticasone/Vilanterol [Breo Ellipta 200-25 Mcg INH] 1 puff INHALATION RT-DAILY 04/27/18 [History] Ipratropium/Albuterol Sulfate [Combivent Respimat Inhaler] 1 puff INHALATION RT- QID PRN 04/27/18 [History] Latanoprost [Xalatan 0.005%] 1 drop RIGHT EYE HS 04/27/18 [History] Montelukast [Singulair] 10 mg PO HS 04/27/18 [History] Apixaban [Eliquis] 2.5 mg PO BID tablet 05/07/18 [Rx] Bumetanide [BUMEX] 2 mg PO BID@0900,1600 #0 tab 05/31/18 [Rx] Gabapentin [Neurontin] 300 mg PO BID cap 05/31/18 [Rx] Metoprolol Tartrate [Lopressor] 50 mg PO BID tab 05/31/18 [Rx] Biotin 1,000mcg 1,000 mcg PO DAILY 04/01/20 [History] Mupirocin [Mupirocin 2%] 1 applic TOPICAL DAILY PRN 04/01/20 [History] Potassium Chloride 10 meq PO DAILY PRN 04/01/20 [History] Vitamin E 400 mg PO DAILY 04/01/20 [History] Clindamycin [Cleocin] 300 mg PO TID 5 Days #15 cap 04/06/20 [Rx] HYDROcodone/APAP 10-325MG [[place] 10-325] 1 each PO Q8H PRN tab 04/06/20 [Rx] Pantoprazole [Protonix] 40 mg PO AC-BRKFST tablet. 04/06/20 [Rx] predniSONE [Deltasone] 40 mg PO DAILY tab 04/06/20 [Rx] Follow up Appointment(s)/Referral(s): Gaston Trevizo MD [STAFF PHYSICIAN] - 04/17/20 9:00 am [facility], [NON-STAFF] - As Needed Elham Kumar MD [Primary Care Provider] - 1-2 days (office closed please call for appointment) Polo Mitchell MD [STAFF PHYSICIAN] - 04/17/20 1:00 pm Activity/Diet/Wound Care/Special Instructions: Aquacel slver dressing to the left leg wound , change q48hr follow up with dr andino 1 week in wound care center , call [phone] to make an appointment
== END 2020-04-06 16:05 | disposition home health service (06) | DRG 190 ==
LOC: EC 17:18 → 4SSUR 22:05
PROVIDERS: ADMIT Internal Medicine; ATTEND Internal Medicine
DX: J44.1 Chronic obstructive pulmonary disease with (acute) exacerbation (principal); I50.33 Acute on chronic diastolic (congestive) heart failure; L03.116 Cellulitis of left lower limb; J96.11 Chronic respiratory failure with hypoxia; N17.9 Acute kidney failure, unspecified; R41.0 Disorientation, unspecified; T38.0X5A Adverse effect of glucocorticoids and synthetic analogues, initial encounter; M06.9 Rheumatoid arthritis, unspecified; J45.909 Unspecified asthma, uncomplicated; I27.20 Pulmonary hypertension, unspecified; J84.10 Pulmonary fibrosis, unspecified; I49.5 Sick sinus syndrome; I48.0 Paroxysmal atrial fibrillation; I11.0 Hypertensive heart disease with heart failure; R04.0 Epistaxis; N20.0 Calculus of kidney; Z20.828 Contact with and (suspected) exposure to other viral communicable diseases; G89.29 Other chronic pain; M54.9 Dorsalgia, unspecified; E03.9 Hypothyroidism, unspecified; I87.8 Other specified disorders of veins; G62.9 Polyneuropathy, unspecified; Z79.899 Other long term (current) drug therapy; Z95.810 Presence of automatic (implantable) cardiac defibrillator; Z90.710 Acquired absence of both cervix and uterus; Z90.89 Acquired absence of other organs; Z98.890 Other specified postprocedural states; Z98.49 Cataract extraction status, unspecified eye; Z87.891 Personal history of nicotine dependence; Z99.81 Dependence on supplemental oxygen; Z79.01 Long term (current) use of anticoagulants; Z88.1 Allergy status to other antibiotic agents; Z91.041 Radiographic dye allergy status; Z88.5 Allergy status to narcotic agent; Z88.0 Allergy status to penicillin; Z88.2 Allergy status to sulfonamides; Z88.8 Allergy status to other drugs, medicaments and biological substances; Z91.09 Other allergy status, other than to drugs and biological substances
CPT/HCPCS: 36415; 71046; 71275; 76770; 80053; 83605; 83880; 84484; 85025; 85379; 85610; 85730; 93005; 93306; 94640; 96374; 96375; 96376; 99285

== ENCOUNTER 2020-04-25 14:46 | Emergency (ER) | payer MEDICARE ==
[2020-04-25 14:58] VITALS: TEMP 97.9
--- NOTE | 2020-04-25 15:10 | ED ---
Skin/Abscess/FB HPI - General Chief complaint: Skin/Abscess/Foreign Body Stated complaint: Leg pain Time Seen by Provider: 04/25/20 15:03 Source: patient, RN notes reviewed, old records reviewed Mode of arrival: ambulatory Limitations: physical limitation - History of Present Illness Initial comments: This is a 84-year-old female DF she presents today for evaluation of right leg examination. Patient is 7 and significant swelling pulmonary on her leg posterior like area maybe 2 x 3 cm. Does run not significantly fluctuant with no real surrounding erythema. Patient sent DF for evaluation by home care nurse complaint: other (Swelling fluid-filled blister right-sided leg) -: days(s) Tetanus Up to Date: yes Location: RLE, R foot Severity: mild Severity scale (1-10): 2 Consistency: constant Improves with: none Worsens with: none Context: none Treatments Prior to Arrival: none - Related Data Home Medications Medication Instructions Recorded Confirmed Ascorbic Acid [Vitamin C] 500 mg PO DAILY 04/27/18 04/01/20 Carboxymethylcellulose Sodium 1 drop BOTH EYES BID PRN 04/27/18 04/01/20 [Refresh Tears] Cholecalciferol (Vitamin D3) 2,000 unit PO DAILY 04/27/18 04/01/20 [Vitamin D3] Fluticasone/Vilanterol [Breo 1 puff INHALATION RT-DAILY 04/27/18 04/01/20 Ellipta 200-25 Mcg INH] Ipratropium/Albuterol Sulfate 1 puff INHALATION RT-QID PRN 04/27/18 04/01/20 [Combivent Respimat Inhaler] Latanoprost [Xalatan 0.005%] 1 drop RIGHT EYE HS 04/27/18 04/01/20 Montelukast [Singulair] 10 mg PO HS 04/27/18 04/01/20 Biotin 1,000mcg 1,000 mcg PO DAILY 04/01/20 04/01/20 Mupirocin [Mupirocin 2%] 1 applic TOPICAL DAILY PRN 04/01/20 04/01/20 Potassium Chloride 10 meq PO DAILY PRN 04/01/20 04/01/20 Vitamin E 400 mg PO DAILY 04/01/20 04/01/20 Previous Rx's Medication Instructions Recorded Apixaban [Eliquis] 2.5 mg PO BID tablet 05/07/18 Bumetanide [BUMEX] 2 mg PO BID@0900,1600 #0 tab 05/31/18 Gabapentin [Neurontin] 300 mg PO BID cap 05/31/18 Metoprolol Tartrate [Lopressor] 50 mg PO BID tab 05/31/18 Clindamycin [Cleocin] 300 mg PO TID 5 Days #15 cap 04/06/20 HYDROcodone/APAP 10-325MG [[place] 1 each PO Q8H PRN tab 04/06/20 10-325] Pantoprazole [Protonix] 40 mg PO AC-BRKFST tablet. 04/06/20 predniSONE [Deltasone] 40 mg PO DAILY tab 04/06/20 Allergies Allergy/AdvReac Type Severity Reaction Status Date / Time amlodipine Allergy Unknown Verified 04/25/20 14:55 benazepril [From Lotrel] Allergy Unknown Verified 04/25/20 14:55 cephalexin [From Keflex] Allergy Anaphylaxis Verified 04/25/20 14:55 Cephalosporins Allergy Anaphylaxis Verified 04/25/20 14:55 codeine Allergy Unknown Verified 04/25/20 14:55 gabapentin Allergy Swelling Verified 04/25/20 14:55 Iodinated Contrast Media Allergy Anaphylaxis Verified 04/25/20 14:55 [Iodinated Contrast- Oral and IV Dye] nebivolol [From Bystolic] Allergy Unknown Verified 04/25/20 14:55 olmesartan [From Benicar] Allergy Unknown Verified 04/25/20 14:55 Penicillins Allergy Anaphylaxis Verified 04/25/20 14:55 Sulfa (Sulfonamide Allergy Anaphylaxis Verified 04/25/20 14:55 Antibiotics) apixaban [From Eliquis] AdvReac BONE PAIN Verified 04/25/20 14:55 clonidine AdvReac BLURRED Verified 04/25/20 14:55 VISION, DIZZY, SCRATCHY THROAT furosemide [From Lasix] AdvReac Nausea & Verified 04/25/20 14:55 Vomiting & Diarrhea hydralazine AdvReac CHILLS, Verified 04/25/20 14:55 SHAKING, LIGHT HEADED, FACE FLUSHED isosorbide [From Imdur] AdvReac Rapid Verified 04/25/20 14:55 Heart Rate labetalol AdvReac Dyspnea Verified 04/25/20 14:55 lisinopril AdvReac Nausea & Verified 04/25/20 14:55 Vomiting & Diarrhea/COUGH PAPER MEDICAL TAPE Allergy Unknown Uncoded 04/25/20 14:55 Review of Systems ROS Statement: Those systems with pertinent positive or pertinent negative responses have been documented in the HPI. ROS Other: All systems not noted in ROS Statement are negative. Past Medical History Past Medical History: Atrial Fibrillation, Asthma, Heart Failure, COPD, Hypertension, Thyroid Disorder History of Any Multi-Drug Resistant Organisms: None Reported Past Surgical History: AICD, Hysterectomy, Pacemaker, Tonsillectomy Additional Past Surgical History / Comment(s): urethral suspension, ectopic, thyroid biopsy, cataract, glaucoma sx AICD/Pacer implant done in Apr, cardiac ablation 05/27/2018 Type of Cardiac Device: Permanent Pacemaker, AICD Device Placement Date:: Apr 2018 Past Psychological History: No Psychological Hx Reported Smoking Status: Former smoker Past Alcohol Use History: None Reported Past Drug Use History: None Reported General Exam Limitations: physical limitation General appearance: alert, in no apparent distress Head exam: Present: atraumatic, normocephalic, normal inspection Eye exam: Present: normal appearance, PERRL, EOMI. Absent: scleral icterus, conjunctival injection, periorbital swelling ENT exam: Present: normal exam, mucous membranes moist Neck exam: Present: normal inspection. Absent: tenderness, meningismus, lymphadenopathy Respiratory exam: Present: normal lung sounds bilaterally. Absent: respiratory distress, wheezes, rales, rhonchi, stridor Cardiovascular Exam: Present: regular rate, normal rhythm, normal heart sounds. Absent: systolic murmur, diastolic murmur, rubs, gallop, clicks GI/Abdominal exam: Present: soft, normal bowel sounds. Absent: distended, tenderness, guarding, rebound, rigid Extremities exam: Present: normal inspection, full ROM, normal capillary refill, other (Right lower extremity swelling and edema, blister). Absent: tenderness, pedal edema, joint swelling, calf tenderness Back exam: Present: normal inspection Neurological exam: Present: alert, oriented X3, CN II-XII intact Psychiatric exam: Present: normal affect, normal mood Skin exam: Present: warm, dry, intact, normal color. Absent: rash Course Vital Signs 04/25/20 04/25/20 14:55 16:06 Temperature 97.9 F Pulse Rate 60 66 Respiratory 20 18 Rate Blood Pressure 165/70 155/69 O2 Sat by Pulse 99 99 Oximetry - Reevaluation(s) Reevaluation #1: 04/25/20 15:54 Medical records reviewed Reevaluation #2: 04/25/20 15:54 Medical records reviewed Patient reevaluated with symptoms significantly improved Spoke with patient regarding results, questions answered Patient feels good for discharge home Procedures - Incision & Drainage Consent Obtained: verbal consent Site: lower extremity Needle Aspiration Performed?: Yes Irrigation Performed?: No I&D Drainage Obtained: Blood Culture Obtained?: No Complications: bleeding Patient Tolerated Procedure: well Medical Decision Making - Medical Decision Making 84 female DF for evaluation of right leg swelling. Patient does have an acute area of blister, symptoms of blood in it no pus noted. Patient can be discharged home Disposition Clinical Impression: Blood blister, Blister of right leg Disposition: HOME SELF-CARE Condition: Good Instructions (If sedation given, give patient instructions): Blister (ED) Is patient prescribed a controlled substance at d/c from ED?: No Referrals: Elham Kumar MD [Primary Care Provider] - 1-2 days
[2020-04-25 16:07] VITALS: BP 155/69; PULSE 66; RESP 18
== END 2020-04-25 16:05 | disposition home or self-care (01) ==
LOC: EC 14:46
DX: S80.821A Blister (nonthermal), right lower leg, initial encounter (principal); J44.9 Chronic obstructive pulmonary disease, unspecified; Z79.51 Long term (current) use of inhaled steroids; Z79.899 Other long term (current) drug therapy; Z88.0 Allergy status to penicillin; Z88.5 Allergy status to narcotic agent; Z88.2 Allergy status to sulfonamides; Z88.8 Allergy status to other drugs, medicaments and biological substances; Z88.1 Allergy status to other antibiotic agents; Z91.041 Radiographic dye allergy status; Z87.891 Personal history of nicotine dependence; X58.XXXA Exposure to other specified factors, initial encounter
CPT/HCPCS: 10140; 99283

== ENCOUNTER 2020-07-03 12:06 | Inpatient (IN) | payer MEDICARE ==
[2020-07-03] MEDS ORDERED: IPRATROPIUM-ALBUTEROL 3 ML NEB INHALATION STA (12:27)
[2020-07-03] MEDS ORDERED: diphenhydrAMINE 50 MG/ML 1 ML VIAL IVP STA (12:28)
[2020-07-03] MEDS ORDERED: FAMOTIDINE 20 MG/2 ML VIAL IV STA (12:28)
[2020-07-03] MEDS ORDERED: methylPREDNISolone SOD SUCCI 125 MG/2 ML VIAL IV STA (12:28)
--- NOTE | 2020-07-03 12:44 | ED ---
Abdominal Pain HPI - General Chief Complaint: Abdominal Pain Stated Complaint: Abd Pain Time Seen by Provider: 07/03/20 12:10 Source: patient, EMS Mode of arrival: EMS Limitations: no limitations - History of Present Illness Initial Comments: Patient is an 85 year old female with past history of A. fib, asthma, COPD, hypertension and presents emergency Department with reported right lower quadrant abdominal pain. Patient states that the pain started yesterday and it required her to remain on her side for several hours until the pain subsided. She states that it is sharp in nature without radiation. She has associated decreased urination and constipation. Previous abdominal surgeries include hysterectomy and bladder suspension. Patient denies any fevers or chills. No rectal bleeding. No nausea or vomiting. She has had a decreased appetite with poor oral intake. No back or flank pain. Patient also admits to increased wheezing. Normally wears 2 L of oxygen at night. Has been using her nebulizer treatment however today did not take her medications or use her nebulizer. She denies any chest pain or shortness of breath. No other alleviating, precipitating or modifying factors - Related Data Home Medications Medication Instructions Recorded Confirmed Ascorbic Acid [Vitamin C] 500 mg PO DAILY 04/27/18 07/03/20 Carboxymethylcellulose Sodium 1 drop BOTH EYES BID PRN 04/27/18 07/03/20 [Refresh Tears] Cholecalciferol (Vitamin D3) 2,000 unit PO DAILY 04/27/18 07/03/20 [Vitamin D3] Ipratropium/Albuterol Sulfate 1 puff INHALATION RT-QID PRN 04/27/18 07/03/20 [Combivent Respimat Inhaler] Latanoprost [Xalatan 0.005%] 1 drop RIGHT EYE HS 04/27/18 07/03/20 Montelukast [Singulair] 10 mg PO HS 04/27/18 07/03/20 Potassium Chloride 10 meq PO BID 04/01/20 07/03/20 Vitamin E 400 mg PO DAILY 04/01/20 07/03/20 Gabapentin 300 mg PO QAM 07/03/20 07/03/20 Gabapentin [Neurontin] 600 mg PO HS 07/03/20 07/03/20 Ipratropium-Albuterol Nebulize 3 ml INHALATION RT-QID PRN 07/03/20 07/03/20 [Duoneb 0.5 mg-3 mg/3 ml Soln] Previous Rx's Medication Instructions Recorded Apixaban [Eliquis] 2.5 mg PO BID tablet 05/07/18 Bumetanide [BUMEX] 2 mg PO BID@0900,1600 #0 tab 05/31/18 Metoprolol Tartrate [Lopressor] 50 mg PO BID tab 05/31/18 HYDROcodone/APAP 10-325MG [[place] 1 each PO Q8H PRN tab 04/06/20 10-325] Pantoprazole [Protonix] 40 mg PO AC-BRKFST tablet. 04/06/20 Allergies Allergy/AdvReac Type Severity Reaction Status Date / Time amlodipine Allergy Unknown Verified 07/03/20 13:58 benazepril [From Lotrel] Allergy Unknown Verified 07/03/20 13:58 cephalexin [From Keflex] Allergy Anaphylaxis Verified 07/03/20 13:58 Cephalosporins Allergy Anaphylaxis Verified 07/03/20 13:58 codeine Allergy Unknown Verified 07/03/20 13:58 Iodinated Contrast Media Allergy Anaphylaxis Verified 07/03/20 13:58 [Iodinated Contrast- Oral and IV Dye] nebivolol [From Bystolic] Allergy Unknown Verified 07/03/20 13:58 olmesartan [From Benicar] Allergy Unknown Verified 07/03/20 13:58 Penicillins Allergy Anaphylaxis Verified 07/03/20 13:58 Sulfa (Sulfonamide Allergy Anaphylaxis Verified 07/03/20 13:58 Antibiotics) apixaban [From Eliquis] AdvReac BONE PAIN Verified 07/03/20 13:58 clonidine AdvReac BLURRED Verified 07/03/20 13:58 VISION, DIZZY, SCRATCHY THROAT furosemide [From Lasix] AdvReac Nausea & Verified 07/03/20 13:58 Vomiting & Diarrhea hydralazine AdvReac CHILLS, Verified 07/03/20 13:58 SHAKING, LIGHT HEADED, FACE FLUSHED isosorbide [From Imdur] AdvReac Rapid Verified 07/03/20 13:58 Heart Rate labetalol AdvReac Dyspnea Verified 07/03/20 13:58 lisinopril AdvReac Nausea & Verified 07/03/20 13:58 Vomiting & Diarrhea/COUGH PAPER MEDICAL TAPE Allergy Unknown Uncoded 07/03/20 12:26 Review of Systems ROS Statement: Those systems with pertinent positive or pertinent negative responses have been documented in the HPI. ROS Other: All systems not noted in ROS Statement are negative. Past Medical History Past Medical History: Atrial Fibrillation, Asthma, Heart Failure, COPD, Hypertension, Thyroid Disorder History of Any Multi-Drug Resistant Organisms: None Reported Past Surgical History: AICD, Hysterectomy, Pacemaker, Tonsillectomy Additional Past Surgical History / Comment(s): urethral suspension, ectopic, thyroid biopsy, cataract, glaucoma sx AICD/Pacer implant done in Apr, cardiac ablation 05/27/2018 Type of Cardiac Device: Permanent Pacemaker, AICD Device Placement Date:: Apr 2018 Past Psychological History: No Psychological Hx Reported Smoking Status: Former smoker Past Alcohol Use History: None Reported Past Drug Use History: None Reported General Exam Limitations: no limitations General appearance: alert, in no apparent distress Head exam: Present: atraumatic, normocephalic, normal inspection Eye exam: Present: normal appearance, PERRL, EOMI. Absent: scleral icterus, conjunctival injection, periorbital swelling ENT exam: Present: normal exam, mucous membranes moist Neck exam: Present: normal inspection. Absent: tenderness, meningismus, lymphadenopathy Respiratory exam: Present: normal lung sounds bilaterally, wheezes, accessory muscle use, other (tachypnia). Absent: respiratory distress, rales, rhonchi, stridor Cardiovascular Exam: Present: regular rate, normal rhythm, normal heart sounds. Absent: systolic murmur, diastolic murmur, rubs, gallop, clicks GI/Abdominal exam: Present: soft, tenderness (RLQ), normal bowel sounds. Absent: distended, guarding, rebound, rigid Extremities exam: Present: normal inspection, full ROM, normal capillary refill. Absent: tenderness, pedal edema, joint swelling, calf tenderness Back exam: Present: normal inspection Neurological exam: Present: alert, oriented X3, CN II-XII intact Psychiatric exam: Present: normal affect, normal mood Skin exam: Present: warm, dry, intact, normal color. Absent: rash Course Vital Signs 07/03/20 07/03/20 07/03/20 12:09 13:06 13:15 Temperature 97.5 F L Pulse Rate 63 60 60 Pulse Rate [ Pulse Oximetery ] Respiratory 22 Rate Blood Pressure 204/79 Blood Pressure [Left Arm] O2 Sat by Pulse 96 Oximetry 07/03/20 07/03/20 07/03/20 15:37 17:38 17:52 Temperature 98.2 F 98.2 F Pulse Rate 60 58 L 58 L Pulse Rate [ Pulse Oximetery ] Respiratory 18 18 18 Rate Blood Pressure 166/70 132/65 132/65 Blood Pressure [Left Arm] O2 Sat by Pulse 96 98 98 Oximetry 07/03/20 17:59 Temperature 97.6 F Pulse Rate Pulse Rate [ 59 L Pulse Oximetery ] Respiratory 17 Rate Blood Pressure Blood Pressure 181/70 [Left Arm] O2 Sat by Pulse 99 Oximetry - Reevaluation(s) Reevaluation #1: 07/03/20 15:[address] Ponce Medical Decision Making - Medical Decision Making Upon arrival the patient is placed into room 23. A thorough history and physical exam was performed. Refer IV had been established by EMS. Laboratory studies were conducted. The patient was given a [place] for pain control. Laboratories were conducted. Patient received treatment for iodine contrast ALLERGY before going over for a CT abdomen and pelvis. Laboratory studies are reviewed which demonstrated an elevated INR of 1.9. Potassium 5.4 with slight hemolysis. BNP 10,300. CT of the patient's abdomen and pelvis demonstrates suspected small hernia in the right lower quadrant, some localized oximetry changes present. Maybe herniation of fat which regulation. Physical exam did not demonstrate any reducible hernia. I discussed results with Dr. Sandy. Patient will be covered with antibiotics and admitted to Dr. Kumar. Discussed the case with Dr. Kumar who accepted admission. Chest x-ray was also performed because of the patient's diffuse wheeziness and she was given a DuoNeb breathing treatment. She appears to be resting more comfortably after treatment. I d iscussed results of the patient. Informed her of need to remain hospitalized for which she did agree to. Patient remained in stable condition and was transferred to floor - Lab Data Result diagrams: 07/09/20 06:34 07/09/20 06:34 Lab Results 07/03/20 07/03/20 07/03/20 Range/Units 12:35 12:35 12:35 WBC 11.4 H (3.8-10.6) k/uL RBC 4.25 (3.80-5.40) m/uL Hgb 12.8 (11.4-16.0) gm/dL Hct 40.9 (34.0-46.0) % MCV 96.1 (80.0-100.0) fL MCH 30.0 (25.0-35.0) pg MCHC 31.2 (31.0-37.0) g/dL RDW 14.1 (11.5-15.5) % Plt Count 293 (150-450) k/uL Neutrophils % 83 % Lymphocytes % 10 % Monocytes % 4 % Eosinophils % 2 % Basophils % 1 % Neutrophils # 9.4 H (1.3-7.7) k/uL Lymphocytes # 1.1 (1.0-4.8) k/uL Monocytes # 0.5 (0-1.0) k/uL Eosinophils # 0.3 (0-0.7) k/uL Basophils # 0.1 (0-0.2) k/uL Hypochromasia Slight PT (9.0-12.0) sec INR (<1.2) APTT (22.0-30.0) sec Sodium 135 L (137-145) mmol/L Potassium 5.4 H (3.5-5.1) mmol/L Chloride 103 (98-107) mmol/L Carbon Dioxide 27 (22-30) mmol/L Anion Gap 5 mmol/L BUN 23 H (7-17) mg/dL Creatinine 0.91 (0.52-1.04) mg/dL Est GFR (CKD-EPI)AfAm 67 (>60 ml/min/1.73 sqM) Est GFR (CKD-EPI)NonAf 58 (>60 ml/min/1.73 sqM) Glucose 125 H (74-99) mg/dL Plasma Lactic Acid Je (0.7-2.0) mmol/L Calcium 9.0 (8.4-10.2) mg/dL Total Bilirubin 2.3 H (0.2-1.3) mg/dL AST 35 (14-36) U/L ALT 10 (4-34) U/L Alkaline Phosphatase 62 (38-126) U/L NT-Pro-B Natriuret Pep pg/mL Total Protein 6.4 (6.3-8.2) g/dL Albumin 3.1 L (3.5-5.0) g/dL Lipase 33 (23-300) U/L Urine Color Yellow Urine Appearance Clear (Clear) Urine pH 5.5 (5.0-8.0) Ur Specific [place] 1.037 H (1.001-1.035) Urine Protein 1+ H (Negative) Urine Glucose (UA) Negative (Negative) Urine Ketones Trace H (Negative) Urine Blood Negative (Negative) Urine Nitrite Negative (Negative) Urine Bilirubin Negative (Negative) Urine Urobilinogen <2.0 (<2.0) mg/dL Ur Leukocyte Esterase Negative (Negative) Urine RBC 1 (0-5) /hpf Urine WBC 2 (0-5) /hpf Ur Squamous Epith Cells <1 (0-4) /hpf Amorphous Sediment Rare H (None) /hpf Hyaline Casts 48 H (0-2) /lpf Urine Mucus Rare H (None) /hpf 07/03/20 07/03/20 07/03/20 Range/Units 12:35 12:35 13:30 WBC (3.8-10.6) k/uL RBC (3.80-5.40) m/uL Hgb (11.4-16.0) gm/dL Hct (34.0-46.0) % MCV (80.0-100.0) fL MCH (25.0-35.0) pg MCHC (31.0-37.0) g/dL RDW (11.5-15.5) % Plt Count (150-450) k/uL Neutrophils % % Lymphocytes % % Monocytes % % Eosinophils % % Basophils % % Neutrophils # (1.3-7.7) k/uL Lymphocytes # (1.0-4.8) k/uL Monocytes # (0-1.0) k/uL Eosinophils # (0-0.7) k/uL Basophils # (0-0.2) k/uL Hypochromasia PT 18.6 H (9.0-12.0) sec INR 1.9 H (<1.2) APTT 30.4 H (22.0-30.0) sec Sodium (137-145) mmol/L Potassium (3.5-5.1) mmol/L Chloride (98-107) mmol/L Carbon Dioxide (22-30) mmol/L Anion Gap mmol/L BUN (7-17) mg/dL Creatinine (0.52-1.04) mg/dL Est GFR (CKD-EPI)AfAm (>60 ml/min/1.73 sqM) Est GFR (CKD-EPI)NonAf (>60 ml/min/1.73 sqM) Glucose (74-99) mg/dL Plasma Lactic Acid Je 1.4 (0.7-2.0) mmol/L Calcium (8.4-10.2) mg/dL Total Bilirubin (0.2-1.3) mg/dL AST (14-36) U/L ALT (4-34) U/L Alkaline Phosphatase (38-126) U/L NT-Pro-B Natriuret Pep 15942 pg/mL Total Protein (6.3-8.2) g/dL Albumin (3.5-5.0) g/dL Lipase (23-300) U/L Urine Color Urine Appearance (Clear) Urine pH (5.0-8.0) Ur Specific [place] (1.001-1.035) Urine Protein (Negative) Urine Glucose (UA) (Negative) Urine Ketones (Negative) Urine Blood (Negative) Urine Nitrite (Negative) Urine Bilirubin (Negative) Urine Urobilinogen (<2.0) mg/dL Ur Leukocyte Esterase (Negative) Urine RBC (0-5) /hpf Urine WBC (0-5) /hpf Ur Squamous Epith Cells (0-4) /hpf Amorphous Sediment (None) /hpf Hyaline Casts (0-2) /lpf Urine Mucus (None) /hpf - EKG Data EKG Comments: EKG demonstrates a flutter with a rate of 62. QRS 140. QTC of 454. Left bundle branch block. Some ST depression in leads 2, 3, aVF as well as V3 through V6. No sgarbossa criteria Disposition Clinical Impression: Abdominal pain, Internal hernia Disposition: ADMITTED IP TO THIS HOSP Condition: Stable Is patient prescribed a controlled substance at d/c from ED?: No Decision to Admit Reason: Admit from EC Decision Date: 07/03/20 Decision Time: 15:50
[2020-07-03] MEDS ORDERED: HYDROcodone/APAP 10-325MG 1 EACH TAB PO ONE (12:45)
[2020-07-03 13:04] LABS: Albumin 3.1 g/dL (3.5-5.0); Basophils # (A) 0.1 k/uL (0-0.2); Basophils % (A) 1 %; Eosinophils # (A) 0.3 k/uL (0-0.7); Eosinophils % (A) 2 %; HCT 40.9 % (34.0-46.0); HGB 12.8 gm/dL (11.4-16.0); Hypochromasia Slight; Lymphocytes # (A) 1.1 k/uL (1.0-4.8); Lymphocytes % (A) 10 %; MCHC 31.2 g/dL (31.0-37.0); MCV 96.1 fL (80.0-100.0); Mean Platelet Volume 8.1; Monocytes # (A) 0.5 k/uL (0-1.0); Monocytes % (A) 4 %; Neutrophils # (A) 9.4 k/uL (1.3-7.7); Neutrophils % (A) 83 %; Platelet Count 293 k/uL (150-450); RBC 4.25 m/uL (3.80-5.40); RDW 14.1 % (11.5-15.5); Total Bilirubin 2.3 mg/dL (0.2-1.3); Total Protein 6.4 g/dL (6.3-8.2); WBC 11.4 k/uL (3.8-10.6)
[2020-07-03 13:10] LABS: Potassium 5.4 mmol/L (3.5-5.1)
--- NOTE | 2020-07-03 13:54 | XR ---
EXAMINATION TYPE: XR chest 2V DATE OF EXAM: 07/03/2020 COMPARISON: Chest x-ray and CT chest 04/01/2020 HISTORY: Cough and pain TECHNIQUE: Frontal and lateral views of the chest are obtained. FINDINGS: Generator is present in the left pectoral region, there are leads in the right atrium and v entricle. Heart size is likely stable. No evident pneumothorax or pleural effusion. Marked arthropath y noted in the shoulders. Interstitium is increased as on prior. Pulmonary vascularity and arya show similar appearance. Suspect a wedge compression deformity in the midthoracic spine resulting kyphosis . IMPRESSION: There is underlying emphysema. Interstitial changes again noted within the lungs. Progre ssion of thoracic compression fracture, likely T6.
[2020-07-03 14:25] LABS: INR 1.9 (<1.2); Partial Thromboplastin Time 30.4 sec (22.0-30.0); Prothrombin Time 18.6 sec (9.0-12.0)
--- NOTE | 2020-07-03 15:01 | CT ---
EXAMINATION TYPE: CT abdomen pelvis w con DATE OF EXAM: 07/03/2020 COMPARISON: HISTORY: Abd pain CT DLP: 986.4 mGycm Automated exposure control for dose reduction was used. TECHNIQUE: Helical acquisition of images from the lung bases through the pelvis have been completed. CONTRAST: Performed without Oral Contrast and with IV Contrast, patient injected with 60 mL of Isovue 300. FINDINGS: Leads are present within the heart. There is increased attenuation present within the mesen jennifer, axial image 53, coronal image 34, sagittal image 52 LUNG BASES: No significant abnormality is appreciated. There is a minimal right-sided pleural effusio n AORTA: No significant abnormality is appreciated. LIVER/GB: Liver shows low attenuation. Gallbladder is somewhat distended and shows dependent calculi. PANCREAS: There is some atrophy present, no evident mass SPLEEN: No significant abnormality is seen. ADRENALS: No significant abnormality is seen. KIDNEYS: Lobular contour to both kidneys is present, areas of possible scarring, mildly heterogeneous enhancement is noted bilaterally, small exophytic probable cortical cysts bilaterally, kidneys excre te contrast bilaterally REPRODUCTIVE ORGANS: Not seen BOWEL: Diverticular changes associated with the sigmoid colon. The colon shows some questionable wal l thickening. In the right lower quadrant on axial image #61 there is a small abdominal wall hernia s uspected, some local inflammatory changes are present. FREE AIR: No Free Air visible. ASCITES: There is some free fluid within the pelvis. PELVIC ADENOPATHY: None visualized. RETROPERITONEAL ADENOPATHY: No Retroperitoneal Adenopathy visible. URINARY BLADDER: No significant abnormality is seen. OSSEOUS STRUCTURES: Degenerative disc changes, facet arthropathy noted in the lumbar spine IMPRESSION: SUSPECT THERE MAY BE A SMALL HERNIA IN THE RIGHT LOWER QUADRANT, SOME LOCAL INFLAMMATORY CHANGES PRES ENT, THERE MAY BE HERNIATION OF FAT WITH STRANGULATION, NO DEFINITE BOWEL LOOP CONTAINED AT THIS LEVE L. SOME MESENTERIC EDEMA OR INFLAMMATORY CHANGE, CORRELATE FOR POSSIBLE PERITONITIS. SMALL RIGHT PLEU RAL EFFUSION. CHOLELITHIASIS. HEPATIC STEATOSIS. DIVERTICULOSIS. CORRELATE TO EXCLUDE COLITIS.
[2020-07-03 15:15] LABS: Amorphous Sediment,Urine Rare /hpf; Appearance,Urine Clear (Clear); Bilirubin,Urine Negative (Negative); Blood,Urine Negative (Negative); Color,Urine Yellow; Glucose,Urine (UA) Negative (Negative); Hyaline Casts,Urine 48 /lpf (0-2); Ketones,Urine Trace (Negative); Leukocyte Esterase,Urine Negative (Negative); Mucus,Urine Rare /hpf; Nitrite,Urine Negative (Negative); PH, Urine 5.5 (5.0-8.0); Protein,Urine 1+ (Negative); RBC,Urine 1 /hpf (0-5); Specific Gravity,Urine 1.037 (1.001-1.035); Squamous Epithelial Cell,Urine <1 /hpf (0-4); Urobilinogen,Urine <2.0 mg/dL (<2.0); WBC,Urine 2 /hpf (0-5)
[2020-07-03] MEDS ORDERED: NALOXONE 0.4 MG/ML 1 ML VIAL IV PRN (15:51)
[2020-07-03] MEDS ORDERED: LEVOFLOXACIN 750MG-D5W PMX 750 MG in DEXTROSE/WATER 1 150ML.BAG IVPB STA (15:56)
[2020-07-03] MEDS ORDERED: metroNIDAZOLE-NS PMX 500 MG in SALINE 1 100ML.BAG IVPB STA (15:56)
[2020-07-03] MEDS ORDERED: ARTIFICIAL TEARS-HYPROMELLOSE DROPS 15 ML BTL BOTH EYES PRN (15:57)
[2020-07-03] MEDS ORDERED: NON FORMULARY DRUG (Ipratropium/Albuterol Sulfate [Combivent Respimat Inhaler] 1 INHALER M INHALATION PRN (15:57)
[2020-07-03] MEDS: SODIUM CHLORIDE 0.9% 1,000 ML IV SCH (16:27)
[2020-07-03] MEDS: BUMETANIDE 1 MG TAB PO SCH (19:56)
[2020-07-03] MEDS: GABAPENTIN 300 MG CAP PO SCH (19:56)
[2020-07-03] MEDS: APIXABAN 2.5 MG TABLET PO SCH (19:56)
[2020-07-03] MEDS: MONTELUKAST 10 MG TAB PO SCH (19:57)
[2020-07-03] MEDS: POTASSIUM CHLORIDE ER 10 MEQ TAB.ER.PRT PO SCH (19:57)
[2020-07-03] MEDS: METOPROLOL TARTRATE 50 MG TAB PO SCH (19:57)
[2020-07-03] MEDS: LATANOPROST 0.005% OPHTH DROPS 2.5 ML BTL RIGHT EYE SCH (20:05)
[2020-07-04 06:29] LABS: Basophils % (A) 0 %; Eosinophils % (A) 0 %; HCT 38.8 % (34.0-46.0); HGB 12.1 gm/dL (11.4-16.0); Hypochromasia Moderate; Lymphocytes # (A) 0.6 k/uL (1.0-4.8); Lymphocytes % (A) 8 %; MCH 30.6 pg (25.0-35.0); MCHC 31.1 g/dL (31.0-37.0); MCV 98.7 fL (80.0-100.0); Mean Platelet Volume 8.5; Monocytes # (A) 0.2 k/uL (0-1.0); Monocytes % (A) 2 %; Neutrophils # (A) 6.2 k/uL (1.3-7.7); Neutrophils % (A) 89 %; Platelet Count 285 k/uL (150-450); RBC 3.93 m/uL (3.80-5.40); RDW 14.1 % (11.5-15.5)
[2020-07-04] MEDS: PANTOPRAZOLE 40 MG TABLET PO SCH (07:14)
[2020-07-04] MEDS: HYDROcodone/APAP 10-325MG 1 EACH TAB PO PRN ×3 (07:23→21:21)
[2020-07-04] MEDS: IPRATROPIUM-ALBUTEROL 3 ML NEB INHALATION PRN (08:31)
[2020-07-04 09:49] LABS: African American GFR (CKD) 53.4 (60.0-200.0); Anion Gap 7.5 mmol/L (4.00-12.00); Calcium 9.1 mg/dL (8.7-10.3); Carbon Dioxide 33.5 mmol/L (21.6-31.8); Non-African American GFR(CKD) 46.1 (60.0-200.0); Potassium 4.4 mmol/L (3.5-5.5)
[2020-07-04] MEDS: APIXABAN 2.5 MG TABLET PO SCH ×2 (09:57→21:20)
[2020-07-04] MEDS: CHOLECALCIFEROL 1,000 UNIT TAB PO SCH (09:58)
[2020-07-04] MEDS: GABAPENTIN 300 MG CAP PO SCH ×2 (09:58→21:20)
[2020-07-04] MEDS: ASCORBIC ACID 500 MG TAB PO SCH (09:58)
[2020-07-04] MEDS: METOPROLOL TARTRATE 50 MG TAB PO SCH ×2 (09:58→21:20)
[2020-07-04] MEDS: POTASSIUM CHLORIDE ER 10 MEQ TAB.ER.PRT PO SCH ×2 (09:59→21:20)
[2020-07-04] MEDS: VITAMIN E (DL,TOCOPHERYL ACET) 400 UNIT CAP PO SCH (10:00)
[2020-07-04] MEDS: BUMETANIDE 1 MG TAB PO SCH ×2 (10:00→16:44)
--- NOTE | 2020-07-04 11:13 | P.CNPUL ---
History of Present Illness Consult date: 07/04/20 Reason for consult: dyspnea, COPD, hypoxemia Chief complaint: Intermittent abdominal pain and intermittent loose stool History of present illness: This is a 85-year-old female with history of end-stage COPD and chronic a sthmatic bronchitis on home oxygen and nebulizer treatment, patient is home oxygen dependent, oxygen need has however remained stable, patient came into the hospital with 3-4 day history of intermittent lower abdominal pain intermittent loose stool, has been feeling very weak, however denies any cough or sputum production she has the shortness of breath which is not much change Review of Systems All systems: negative Past Medical History Past Medical History: Atrial Fibrillation, Asthma, Heart Failure, COPD, Hypert ension, Thyroid Disorder History of Any Multi-Drug Resistant Organisms: None Reported Past Surgical History: AICD, Hysterectomy, Pacemaker, Tonsillectomy Additional Past Surgical History / Comment(s): urethral suspension, ectopic, thyroid biopsy, cataract, glaucoma sx AICD/Pacer implant done in Apr, cardiac ablation 05/27/2018 Past Anesthesia/Blood Transfusion Reactions: No Reported Reaction Type of Cardiac Device: Permanent Pacemaker, AICD Device Placement Date:: Apr 2018 Past Psychological History: No Psychological Hx Reported Smoking Status: Former smoker Past Alcohol Use History: None Reported Past Drug Use History: None Reported Medications and Allergies Home Medications Medication Instructions Recorded Confirmed Type Ascorbic Acid [Vitamin C] 500 mg PO DAILY 04/27/18 07/03/20 History Carboxymethylcellulose Sodium 1 drop BOTH EYES BID PRN 04/27/18 07/03/20 History [Refresh Tears] Cholecalciferol (Vitamin D3) 2,000 unit PO DAILY 04/27/18 07/03/20 History [Vitamin D3] Ipratropium/Albuterol Sulfate 1 puff INHALATION RT-QID PRN 04/27/18 07/03/20 History [Combivent Respimat Inhaler] Latanoprost [Xalatan 0.005%] 1 drop RIGHT EYE HS 04/27/18 07/03/20 History Montelukast [Singulair] 10 mg PO HS 04/27/18 07/03/20 History Apixaban [Eliquis] 2.5 mg PO BID tablet 05/07/18 07/03/20 Rx Bumetanide [BUMEX] 2 mg PO BID@0900,1600 #0 tab 05/31/18 07/03/20 Rx Metoprolol Tartrate [Lopressor] 50 mg PO BID tab 05/31/18 07/03/20 Rx Potassium Chloride 10 meq PO BID 04/01/20 07/03/20 History Vitamin E 400 mg PO DAILY 04/01/20 07/03/20 History HYDROcodone/APAP 10-325MG [[place] 1 each PO Q8H PRN tab 04/06/20 07/03/20 Rx 10-325] Pantoprazole [Protonix] 40 mg PO AC-BRKFST tablet. 04/06/20 07/03/20 Rx Gabapentin 300 mg PO QAM 07/03/20 07/03/20 History Gabapentin [Neurontin] 600 mg PO HS 07/03/20 07/03/20 History Ipratropium-Albuterol Nebulize 3 ml INHALATION RT-QID PRN 07/03/20 07/03/20 History [Duoneb 0.5 mg-3 mg/3 ml Soln] Allergies Allergy/AdvReac Type Severity Reaction Status Date / Time amlodipine Allergy Unknown Verified 07/03/20 13:58 benazepril [From Lotrel] Allergy Unknown Verified 07/03/20 13:58 cephalexin [From Keflex] Allergy Anaphylaxis Verified 07/03/20 13:58 Cephalosporins Allergy Anaphylaxis Verified 07/03/20 13:58 codeine Allergy Unknown Verified 07/03/20 13:58 Iodinated Contrast Media Allergy Anaphylaxis Verified 07/03/20 13:58 [Iodinated Contrast- Oral and IV Dye] nebivolol [From Bystolic] Allergy Unknown Verified 07/03/20 13:58 olmesartan [From Benicar] Allergy Unknown Verified 07/03/20 13:58 Penicillins Allergy Anaphylaxis Verified 07/03/20 13:58 Sulfa (Sulfonamide Allergy Anaphylaxis Verified 07/03/20 13:58 Antibiotics) apixaban [From Eliquis] AdvReac BONE PAIN Verified 07/03/20 13:58 clonidine AdvReac BLURRED Verified 07/03/20 13:58 VISION, DIZZY, SCRATCHY THROAT furosemide [From Lasix] AdvReac Nausea & Verified 07/03/20 13:58 Vomiting & Diarrhea hydralazine AdvReac CHILLS, Verified 07/03/20 13:58 SHAKING, LIGHT HEADED, FACE FLUSHED isosorbide [From Imdur] AdvReac Rapid Verified 07/03/20 13:58 Heart Rate labetalol AdvReac Dyspnea Verified 07/03/20 13:58 lisinopril AdvReac Nausea & Verified 07/03/20 13:58 Vomiting & Diarrhea/COUGH PAPER MEDICAL TAPE Allergy Unknown Uncoded 07/03/20 12:26 Physical Exam Vitals: Vital Signs Temp Pulse Pulse Resp BP BP Pulse Ox 07/04/20 10:07 65 18 07/04/20 08:42 68 07/04/20 08:32 64 07/04/20 07:05 97.9 F 65 17 165/75 95 07/04/20 04:00 60 16 07/04/20 00:20 98.0 F 60 16 167/80 97 07/04/20 00:00 64 14 07/03/20 20:00 64 14 07/03/20 18:50 98.0 F 64 14 180/81 97 07/03/20 17:59 97.6 F 59 L 17 181/70 99 07/03/20 17:52 98.2 F 58 L 18 132/65 98 07/03/20 17:38 98.2 F 58 L 18 132/65 98 07/03/20 15:37 60 18 166/70 96 07/03/20 13:15 60 07/03/20 13:06 60 07/03/20 12:09 97.5 F L 63 22 204/79 96 Intake and Output 07/03/20 07/04/20 07/04/20 22:59 06:59 14:59 Other: Voiding Method Bedside Commode Bedside Commode Bedside Commode # Voids 1 1 Weight 79.832 kg - Constitutional General appearance: average body habitus, cooperative, disheveled - EENT Eyes: PERRLA Ears: bilateral: normal - Neck Neck: normal ROM Carotids: bilateral: upstroke normal Thyroid: bilateral: normal size - Respiratory Respiratory: bilateral: CTA, diminished - Cardiovascular Rhythm: regular Heart sounds: normal: S1, S2 - Gastrointestinal General gastrointestinal: normal bowel sounds, soft - Neurologic Neurologic: CNII-XII intact - Musculoskeletal Musculoskeletal: gait normal, generalized weakness, strength equal bilaterally - Psychiatric Psychiatric: A&O x's 3, appropriate affect, intact judgment & insight Results - Laboratory Findings CBC and BMP: 07/04/20 05:22 07/04/20 05:22 PT/INR, D-dimer PT 18.6 sec (9.0-12.0) H 07/03/20 13:30 INR 1.9 (<1.2) H 07/03/20 13:30 Abnormal lab findings: Abnormal Labs 07/03/20 07/03/20 07/03/20 12:35 12:35 12:35 WBC 11.4 H Neutrophils # 9.4 H Lymphocytes # PT INR APTT Sodium 135 L Potassium 5.4 H Carbon Dioxide BUN 23 H Est GFR (CKD-EPI)AfAm Est GFR (CKD-EPI)NonAf Glucose 125 H Total Bilirubin 2.3 H Albumin 3.1 L Ur Specific [place] 1.037 H Urine Protein 1+ H Urine Ketones Trace H Amorphous Sediment Rare H Hyaline Casts 48 H Urine Mucus Rare H 07/03/20 07/04/20 07/04/20 13:30 05:22 05:22 WBC Neutrophils # Lymphocytes # 0.6 L PT 18.6 H INR 1.9 H APTT 30.4 H Sodium Potassium Carbon Dioxide 33.5 H BUN Est GFR (CKD-EPI)AfAm 53.4 L Est GFR (CKD-EPI)NonAf 46.1 L Glucose 129 H Total Bilirubin Albumin Ur Specific [place] Urine Protein Urine Ketones Amorphous Sediment Hyaline Casts Urine Mucus - Diagnostic Findings Chest x-ray: report reviewed, image reviewed (COPD-like changes along with compression fracture T6 CT of the abdominal and and pelvis significant for presence of herniation in the right lower quadrant with local inflammation, some early strangulation cannot be excluded along with mesenteric edema and also cholelithiasi with diverticulosis is no) Assessment and Plan Assessment: Abdominal pain early peritonitis versus early inflammatory changes due to mesenteric edema suspicious of peritonitis Stable COPD oxygen dependent and nebulizer dependent Chronic hypoxic respiratory failure due to end-stage COPD Generalized anxiety disorder Chronic atrial fibrillation on anticoagulation Component of asthma and asthmatic bronchitis Peptic ulcer disease Peripheral neuropathy hypertension hypertensive cardiovascular disease Plan: Continue gentle rehydration, agree with surgical evaluation, continue bronchodilators, as patient is not in COPD exacerbation so will hold on steroids. Continue breathing treatments supplemental oxygen deep breathing exercises further evaluation pending plan of care as per clinical response of patient will follow surgical advice Time with Patient: Greater than 30
[2020-07-04] MEDS: SODIUM CHLORIDE 0.9% 1,000 ML IV SCH (12:10)
--- NOTE | 2020-07-04 12:40 | P.HPIM ---
History of Present Illness H&P Date: 07/04/20 Chief Complaint: Abdominal pain This is an 85-year-old female patient who presented to the ER with abdominal pain that had been occurring intermittently over the past few days patient reports the pain was sharp in nature. Patient reports she had decreased appetite. Additional medical history includes A. fib in which she is on eliquis, asthma, heart failure, COPD, hypertension, thyroid disorder, pacemaker, AICD and ex-smoker. Patient also reports she's had some wheezing. Chest x-ray completed showing underlying emphysema. Interstitial changes again noted within the lungs progression of thoracic compression fracture likely T6. Abdominal x- ray completed showing suspect there may be a small hernia in the right lower quadrant some local inflammation changes present there may be herniation of fat with stranding ablation no definitive bowel loop contained at this level. Some mesenteric edema or inflammatory change correlate for possible peritonitis small right pleural effusion cholelithiasis hepatic steatosis diverticulitis. Correlate to exclude colitis. Patient started on Flagyl and Levaquin and surgical consult placed. Dr. 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 Cardiology services also consulted due to cardiac history. At this time patient is resting comfortably in bed. Patient reports some abdominal discomfort and tenderness to palpation. Patient denies any chest pain. Does report some shortness of breath. Patient denies nausea vomiting or diarrhea. Patient denies any urinary burning or frequency Review of Systems Please refer to HPI otherwise unremarkable Past Medical History Past Medical History: Atrial Fibrillation, Asthma, Heart Failure, COPD, Hypertension, Thyroid Disorder History of Any Multi-Drug Resistant Organisms: None Reported Past Surgical History: AICD, Hysterectomy, Pacemaker, Tonsillectomy Additional Past Surgical History / Comment(s): urethral suspension, ectopic, thyroid biopsy, cataract, glaucoma sx AICD/Pacer implant done in Apr, cardiac ablation 05/27/2018 Past Anesthesia/Blood Transfusion Reactions: No Reported Reaction Type of Cardiac Device: Permanent Pacemaker, AICD Device Placement Date:: Apr 2018 Past Psychological History: No Psychological Hx Reported Smoking Status: Former smoker Past Alcohol Use History: None Reported Past Drug Use History: None Reported Medications and Allergies Home Medications Medication Instructions Recorded Confirmed Type Ascorbic Acid [Vitamin C] 500 mg PO DAILY 04/27/18 07/03/20 History Carboxymethylcellulose Sodium 1 drop BOTH EYES BID PRN 04/27/18 07/03/20 History [Refresh Tears] Cholecalciferol (Vitamin D3) 2,000 unit PO DAILY 04/27/18 07/03/20 History [Vitamin D3] Ipratropium/Albuterol Sulfate 1 puff INHALATION RT-QID PRN 04/27/18 07/03/20 History [Combivent Respimat Inhaler] Latanoprost [Xalatan 0.005%] 1 drop RIGHT EYE HS 04/27/18 07/03/20 History Montelukast [Singulair] 10 mg PO HS 04/27/18 07/03/20 History Apixaban [Eliquis] 2.5 mg PO BID tablet 05/07/18 07/03/20 Rx Bumetanide [BUMEX] 2 mg PO BID@0900,1600 #0 tab 05/31/18 07/03/20 Rx Metoprolol Tartrate [Lopressor] 50 mg PO BID tab 05/31/18 07/03/20 Rx Potassium Chloride 10 meq PO BID 04/01/20 07/03/20 History Vitamin E 400 mg PO DAILY 04/01/20 07/03/20 History HYDROcodone/APAP 10-325MG [[place] 1 each PO Q8H PRN tab 04/06/20 07/03/20 Rx 10-325] Pantoprazole [Protonix] 40 mg PO AC-BRKFST tablet. 04/06/20 07/03/20 Rx Gabapentin 300 mg PO QAM 07/03/20 07/03/20 History Gabapentin [Neurontin] 600 mg PO HS 07/03/20 07/03/20 History Ipratropium-Albuterol Nebulize 3 ml INHALATION RT-QID PRN 07/03/20 07/03/20 History [Duoneb 0.5 mg-3 mg/3 ml Soln] Allergies Allergy/AdvReac Type Severity Reaction Status Date / Time amlodipine Allergy Unknown Verified 07/03/20 13:58 benazepril [From Lotrel] Allergy Unknown Verified 07/03/20 13:58 cephalexin [From Keflex] Allergy Anaphylaxis Verified 07/03/20 13:58 Cephalosporins Allergy Anaphylaxis Verified 07/03/20 13:58 codeine Allergy Unknown Verified 07/03/20 13:58 Iodinated Contrast Media Allergy Anaphylaxis Verified 07/03/20 13:58 [Iodinated Contrast- Oral and IV Dye] nebivolol [From Bystolic] Allergy Unknown Verified 07/03/20 13:58 olmesartan [From Benicar] Allergy Unknown Verified 07/03/20 13:58 Penicillins Allergy Anaphylaxis Verified 07/03/20 13:58 Sulfa (Sulfonamide Allergy Anaphylaxis Verified 07/03/20 13:58 Antibiotics) apixaban [From Eliquis] AdvReac BONE PAIN Verified 07/03/20 13:58 clonidine AdvReac BLURRED Verified 07/03/20 13:58 VISION, DIZZY, SCRATCHY THROAT furosemide [From Lasix] AdvReac Nausea & Verified 07/03/20 13:58 Vomiting & Diarrhea hydralazine AdvReac CHILLS, Verified 07/03/20 13:58 SHAKING, LIGHT HEADED, FACE FLUSHED isosorbide [From Imdur] AdvReac Rapid Verified 07/03/20 13:58 Heart Rate labetalol AdvReac Dyspnea Verified 07/03/20 13:58 lisinopril AdvReac Nausea & Verified 07/03/20 13:58 Vomiting & Diarrhea/COUGH PAPER MEDICAL TAPE Allergy Unknown Uncoded 07/03/20 12:26 Physical Exam Vitals: Vital Signs Temp Pulse Pulse Resp BP BP Pulse Ox 07/04/20 10:07 65 18 07/04/20 08:42 68 07/04/20 08:32 64 07/04/20 07:05 97.9 F 65 17 165/75 95 07/04/20 04:00 60 16 07/04/20 00:20 98.0 F 60 16 167/80 97 07/04/20 00:00 64 14 07/03/20 20:00 64 14 07/03/20 18:50 98.0 F 64 14 180/81 97 07/03/20 17:59 97.6 F 59 L 17 181/70 99 07/03/20 17:52 98.2 F 58 L 18 132/65 98 07/03/20 17:38 98.2 F 58 L 18 132/65 98 07/03/20 15:37 60 18 166/70 96 07/03/20 13:15 60 07/03/20 13:06 60 Intake and Output 07/03/20 07/04/20 07/04/20 22:59 06:59 14:59 Other: Voiding Method Bedside Commode Bedside Commode Bedside Commode # Voids 1 1 Weight 79.832 kg Head normocephalic Neck supple Lungs clear to auscultation bilaterally no wheezing or crackles Heart regular rate and rhythm S1-S2, no rub or gallop Abdomen is soft tenderness to palpation to mid abdomen nondistended positive bowel sounds no hepatosplenomegaly Extremities no edema Neuro alert and orientated to 3 Results CBC & Chem 7: 07/04/20 05:22 07/04/20 05:22 Labs: Abnormal Lab Results - Last 24 Hours (Table) 07/03/20 07/03/20 07/03/20 Range/Units 12:35 12:35 12:35 WBC 11.4 H (3.8-10.6) k/uL Neutrophils # 9.4 H (1.3-7.7) k/uL Lymphocytes # (1.0-4.8) k/uL PT (9.0-12.0) sec INR (<1.2) APTT (22.0-30.0) sec Sodium 135 L (137-145) mmol/L Potassium 5.4 H (3.5-5.1) mmol/L Carbon Dioxide (21.6-31.8) mmol/L BUN 23 H (7-17) mg/dL Est GFR (CKD-EPI)AfAm (60.0-200.0) Est GFR (CKD-EPI)NonAf (60.0-200.0) Glucose 125 H (74-99) mg/dL Total Bilirubin 2.3 H (0.2-1.3) mg/dL Albumin 3.1 L (3.5-5.0) g/dL Ur Specific [place] 1.037 H (1.001-1.035) Urine Protein 1+ H (Negative) Urine Ketones Trace H (Negative) Amorphous Sediment Rare H (None) /hpf Hyaline Casts 48 H (0-2) /lpf Urine Mucus Rare H (None) /hpf 07/03/20 07/04/20 07/04/20 Range/Units 13:30 05:22 05:22 WBC (3.8-10.6) k/uL Neutrophils # (1.3-7.7) k/uL Lymphocytes # 0.6 L (1.0-4.8) k/uL PT 18.6 H (9.0-12.0) sec INR 1.9 H (<1.2) APTT 30.4 H (22.0-30.0) sec Sodium (137-145) mmol/L Potassium (3.5-5.1) mmol/L Carbon Dioxide 33.5 H (21.6-31.8) mmol/L BUN (7-17) mg/dL Est GFR (CKD-EPI)AfAm 53.4 L (60.0-200.0) Est GFR (CKD-EPI)NonAf 46.1 L (60.0-200.0) Glucose 129 H (74-99) mg/dL Total Bilirubin (0.2-1.3) mg/dL Albumin (3.5-5.0) g/dL Ur Specific [place] (1.001-1.035) Urine Protein (Negative) Urine Ketones (Negative) Amorphous Sediment (None) /hpf Hyaline Casts (0-2) /lpf Urine Mucus (None) /hpf Thrombosis Risk Factor Assmnt - Choose All That Apply Each Factor Represents 1 point: Abnormal pulmonary function (COPD), Medical pt on bed rest, Obesity (BMI >25) Each Risk Factor Represents 3 Points: Age 75 years or older Thrombosis Risk Factor Assessment Total Risk Factor Score: 6 Thrombosis Risk Factor Assessment Level: High Risk Assessment and Plan Assessment: 1. Acute abdominal pain secondary to peritonitis versus early bleaching changes due to mesenteric edema suspicious of peritonitis. CT of abdomen completed p lease see above results. Surgical services have been consulted. Patient started on Levaquin and Flagyl. Blood Culture ordered 2. Acute exacerbation of COPD. Dr. Mitchell has been consulted 3. 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 Chronic atrial fibrillation on eliquis 5. History of pacemaker and AICD placement. Cardiology services have been consulted 6. Peptic ulcer disease 7. History of peripheral neuropathy 8. Generalized anxiety disorder 9. Essential hypertension DVT prophylaxis eliquis. GI prophylaxis Protonix Surgical, pulmonary and cardiology services consulted Flagyl and Levaquin for antibiotics. blood culture ordered PT OT ordered Social work consult for possible placement Time with Patient: Greater than 30 (Greater than 60% of the total time spent in counseling and coordination of care)
--- NOTE | 2020-07-04 14:32 | P.GSCN ---
History of Present Illness Consult date: 07/04/20 History of present illness: CHIEF COMPLAINT: Abdominal pain HISTORY OF PRESENT ILLNESS: 5-year-old female with a known history of atrial fibrillation anticoagulated with Eliquis, peptic ulcer disease, asthma, Chronic hypoxic respiratory failureCOPD, hypertension, hypothyroidism, AICD, hysterectomy and bladder suspension. Patient presented to the emergency room with complaints of intermittent Right lower quadrant abdominal pain That started yesterday. She reports the pain is sharp in nature. She's also had some decreased urination and constipation. Patient denies any fevers or chills. Denies any nausea vomiting She denies any rectal bleeding. She's had decrease in her appetite and poor oral intake. Patient had computed tomography scan of the abdomen and pelvis suspect there may be a small hernia in the right lower quadrant, some local inflammatory changes present, there may be herniation of fat with strangulation, no definite bowel loop contained at this level. Some mesenteric edema or inflammatory change, of course correlate for possible peritonitis. Small right pleural effusion. Cholelithiasis. Hepatic steatosis. Diverticulosis. Correlate to exclude colitis. Surgery has been consulted for abdominal pain. Patient seen and examined with Dr. Ponce PAST MEDICAL HISTORY: See list. PAST SURGICAL HISTORY: See list. MEDICATIONS: See list. ALLERGIES: See list. SOCIAL HISTORY: No illicit drug use. REVIEW OF SYSTEMS: CONSTITUTIONAL: Denies fever or chills. HEENT: Denies blurred vision, vision changes, or eye pain. Denies hemoptysis CARDIOVASCULAR: Denies chest pain or pressure. RESPIRATORY: No shortness of breath. GASTROINTESTINAL: See HPI for pertinent findings HEMATOLOGIC: Denies bleeding disorders. GENITOURINARY: Denies any blood in urine or increased urinary frequency. SKIN: Denies pruitis. Denies rash. PHYSICAL EXAM: VITAL SIGNS: Reviewed GENERAL: Well-developed in no acute distress. HEENT: No sclera icterus. Extraocular movements grossly intact. Moist buccal mucosa. Head is atraumatic, normocephalic. No nasal drainage. ABDOMEN: Soft. Nondistended. Tenderness with palpation of the right lower quadrant. NEUROLOGIC: Alert and oriented. Cranial nerves II through XII grossly intact. LABORATORY DATA: WBC 11.4 down to 7.0 Lactic 1.4 IMAGING: computed tomography scan of the abdomen and pelvis suspect there may be a small hernia in the right lower quadrant, some local inflammatory changes present, there may be herniation of fat with strangulation, no definite bowel loop contained at this level. Some mesenteric edema or inflammatory change, of course correlate for possible peritonitis. Small right pleural effusion. Cholelithiasis. Hepatic steatosis. Diverticulosis. Correlate to exclude colitis. ASSESSMENT: 1. Abdominal pain likely secondary to Hernia. Patient evaluated by Dr. Ponce who felt that there were no signs of peritonitis 2. Chronic atrial fibrillation anticoagulated with Eliquis 3. History of pacemaker and AICD placement 4. History of chronic Hypoxic respiratory failure Due to end-stage COPD PLAN: -Recommend conservative management -No surgical intervention planned at this time -Continue heart healthy diet thank you for this consultation Physician Classroom Technology Technician note has been reviewed by physician. Signing provider agrees with the documented findings, assessment, and plan of care. Past Medical History Past Medical History: Atrial Fibrillation, Asthma, Heart Failure, COPD, Hypertension, Thyroid Disorder History of Any Multi-Drug Resistant Organisms: None Reported Past Surgical History: AICD, Hysterectomy, Pacemaker, Tonsillectomy Additional Past Surgical History / Comment(s): urethral suspension, ectopic, thyroid biopsy, cataract, glaucoma sx AICD/Pacer implant done in Apr, cardiac ablation 05/27/2018 Past Anesthesia/Blood Transfusion Reactions: No Reported Reaction Type of Cardiac Device: Permanent Pacemaker, AICD Device Placement Date:: Apr 2018 Past Psychological History: No Psychological Hx Reported Smoking Status: Former smoker Past Alcohol Use History: None Reported Past Drug Use History: None Reported Medications and Allergies Home Medications Medication Instructions Recorded Confirmed Type Ascorbic Acid [Vitamin C] 500 mg PO DAILY 04/27/18 07/03/20 History Carboxymethylcellulose Sodium 1 drop BOTH EYES BID PRN 04/27/18 07/03/20 History [Refresh Tears] Cholecalciferol (Vitamin D3) 2,000 unit PO DAILY 04/27/18 07/03/20 History [Vitamin D3] Ipratropium/Albuterol Sulfate 1 puff INHALATION RT-QID PRN 04/27/18 07/03/20 History [Combivent Respimat Inhaler] Latanoprost [Xalatan 0.005%] 1 drop RIGHT EYE HS 04/27/18 07/03/20 History Montelukast [Singulair] 10 mg PO HS 04/27/18 07/03/20 History Apixaban [Eliquis] 2.5 mg PO BID tablet 05/07/18 07/03/20 Rx Bumetanide [BUMEX] 2 mg PO BID@0900,1600 #0 tab 05/31/18 07/03/20 Rx Metoprolol Tartrate [Lopressor] 50 mg PO BID tab 05/31/18 07/03/20 Rx Potassium Chloride 10 meq PO BID 04/01/20 07/03/20 History Vitamin E 400 mg PO DAILY 04/01/20 07/03/20 History HYDROcodone/APAP 10-325MG [[place] 1 each PO Q8H PRN tab 04/06/20 07/03/20 Rx 10-325] Pantoprazole [Protonix] 40 mg PO AC-BRKFST tablet. 04/06/20 07/03/20 Rx Gabapentin 300 mg PO QAM 07/03/20 07/03/20 History Gabapentin [Neurontin] 600 mg PO HS 07/03/20 07/03/20 History Ipratropium-Albuterol Nebulize 3 ml INHALATION RT-QID PRN 07/03/20 07/03/20 History [Duoneb 0.5 mg-3 mg/3 ml Soln] Allergies Allergy/AdvReac Type Severity Reaction Status Date / Time amlodipine Allergy Unknown Verified 07/03/20 13:58 benazepril [From Lotrel] Allergy Unknown Verified 07/03/20 13:58 cephalexin [From Keflex] Allergy Anaphylaxis Verified 07/03/20 13:58 Cephalosporins Allergy Anaphylaxis Verified 07/03/20 13:58 codeine Allergy Unknown Verified 07/03/20 13:58 Iodinated Contrast Media Allergy Anaphylaxis Verified 07/03/20 13:58 [Iodinated Contrast- Oral and IV Dye] nebivolol [From Bystolic] Allergy Unknown Verified 07/03/20 13:58 olmesartan [From Benicar] Allergy Unknown Verified 07/03/20 13:58 Penicillins Allergy Anaphylaxis Verified 07/03/20 13:58 Sulfa (Sulfonamide Allergy Anaphylaxis Verified 07/03/20 13:58 Antibiotics) apixaban [From Eliquis] AdvReac BONE PAIN Verified 07/03/20 13:58 clonidine AdvReac BLURRED Verified 07/03/20 13:58 VISION, DIZZY, SCRATCHY THROAT furosemide [From Lasix] AdvReac Nausea & Verified 07/03/20 13:58 Vomiting & Diarrhea hydralazine AdvReac CHILLS, Verified 07/03/20 13:58 SHAKING, LIGHT HEADED, FACE FLUSHED isosorbide [From Imdur] AdvReac Rapid Verified 07/03/20 13:58 Heart Rate labetalol AdvReac Dyspnea Verified 07/03/20 13:58 lisinopril AdvReac Nausea & Verified 07/03/20 13:58 Vomiting & Diarrhea/COUGH PAPER MEDICAL TAPE Allergy Unknown Uncoded 07/03/20 12:26 Surgical - Exam Vital Signs Temp Pulse Resp BP Pulse Ox 97.5 F L 63 22 204/79 96 07/03/20 12:09 07/03/20 12:09 07/03/20 12:09 07/03/20 12:09 07/03/20 12:09 Results - Labs 07/04/20 05:22 07/04/20 05:22 Abnormal Lab Results - Last 24 Hours (Table) 07/03/20 07/03/20 07/04/20 Range/Units 12:35 13:30 05:22 Lymphocytes # 0.6 L (1.0-4.8) k/uL PT 18.6 H (9.0-12.0) sec INR 1.9 H (<1.2) APTT 30.4 H (22.0-30.0) sec Carbon Dioxide (21.6-31.8) mmol/L Est GFR (CKD-EPI)AfAm (60.0-200.0) Est GFR (CKD-EPI)NonAf (60.0-200.0) Glucose (70-110) mg/dL Ur Specific [place] 1.037 H (1.001-1.035) Urine Protein 1+ H (Negative) Urine Ketones Trace H (Negative) Amorphous Sediment Rare H (None) /hpf Hyaline Casts 48 H (0-2) /lpf Urine Mucus Rare H (None) /hpf 07/04/20 Range/Units 05:22 Lymphocytes # (1.0-4.8) k/uL PT (9.0-12.0) sec INR (<1.2) APTT (22.0-30.0) sec Carbon Dioxide 33.5 H (21.6-31.8) mmol/L Est GFR (CKD-EPI)AfAm 53.4 L (60.0-200.0) Est GFR (CKD-EPI)NonAf 46.1 L (60.0-200.0) Glucose 129 H (70-110) mg/dL Ur Specific [place] (1.001-1.035) Urine Protein (Negative) Urine Ketones (Negative) Amorphous Sediment (None) /hpf Hyaline Casts (0-2) /lpf Urine Mucus (None) /hpf Diabetes panel 07/04/20 Range/Units 05:22 Sodium 144 (135-145) mmol/L Potassium 4.4 (3.5-5.5) mmol/L Chloride 103 (96-109) mmol/L Carbon Dioxide 33.5 H (21.6-31.8) mmol/L BUN 22.0 (9.0-27.0) mg/dL Creatinine 1.1 (0.6-1.5) mg/dL Glucose 129 H (70-110) mg/dL Calcium 9.1 (8.7-10.3) mg/dL Calcium panel 07/04/20 Range/Units 05:22 Calcium 9.1 (8.7-10.3) mg/dL Pituitary panel 07/04/20 Range/Units 05:22 Sodium 144 (135-145) mmol/L Potassium 4.4 (3.5-5.5) mmol/L Chloride 103 (96-109) mmol/L Carbon Dioxide 33.5 H (21.6-31.8) mmol/L BUN 22.0 (9.0-27.0) mg/dL Creatinine 1.1 (0.6-1.5) mg/dL Glucose 129 H (70-110) mg/dL Calcium 9.1 (8.7-10.3) mg/dL Adrenal panel 07/04/20 Range/Units 05:22 Sodium 144 (135-145) mmol/L Potassium 4.4 (3.5-5.5) mmol/L Chloride 103 (96-109) mmol/L Carbon Dioxide 33.5 H (21.6-31.8) mmol/L BUN 22.0 (9.0-27.0) mg/dL Creatinine 1.1 (0.6-1.5) mg/dL Glucose 129 H (70-110) mg/dL Calcium 9.1 (8.7-10.3) mg/dL
[2020-07-04] MEDS: LATANOPROST 0.005% OPHTH DROPS 2.5 ML BTL RIGHT EYE SCH (21:20)
[2020-07-04] MEDS: MONTELUKAST 10 MG TAB PO SCH (21:20)
[2020-07-05] MEDS: HYDROcodone/APAP 10-325MG 1 EACH TAB PO PRN ×2 (05:57→15:55)
[2020-07-05 06:39] LABS: Basophils % (A) 0 %; Eosinophils % (A) 0 %; HCT 38.6 % (34.0-46.0); HGB 11.7 gm/dL (11.4-16.0); Hypochromasia Moderate; Lymphocytes # (A) 1.4 k/uL (1.0-4.8); Lymphocytes % (A) 12 %; MCH 30.2 pg (25.0-35.0); MCHC 30.3 g/dL (31.0-37.0); MCV 99.8 fL (80.0-100.0); Mean Platelet Volume 8.3; Monocytes # (A) 0.6 k/uL (0-1.0); Monocytes % (A) 5 %; Neutrophils # (A) 9.9 k/uL (1.3-7.7); Neutrophils % (A) 82 %; Platelet Count 300 k/uL (150-450); RBC 3.87 m/uL (3.80-5.40); RDW 13.9 % (11.5-15.5); WBC 12.1 k/uL (3.8-10.6)
[2020-07-05] MEDS: SODIUM CHLORIDE 0.9% 1,000 ML IV SCH (07:02)
[2020-07-05] MEDS: PANTOPRAZOLE 40 MG TABLET PO SCH (07:32)
[2020-07-05] MEDS: VITAMIN E (DL,TOCOPHERYL ACET) 400 UNIT CAP PO SCH (09:42)
[2020-07-05] MEDS: METOPROLOL TARTRATE 50 MG TAB PO SCH ×2 (09:43→20:44)
[2020-07-05] MEDS: GABAPENTIN 300 MG CAP PO SCH ×2 (09:43→20:45)
[2020-07-05 09:44] LABS: African American GFR (CKD) 33.9 (60.0-200.0); Albumin 3.2 g/dL (3.80-4.90); Albumin/Globulin Ratio 1.6 (1.60-3.17); Anion Gap 11.5 mmol/L (4.00-12.00); Calcium 8.6 mg/dL (8.7-10.3); Carbon Dioxide 27.5 mmol/L (21.6-31.8); Non-African American GFR(CKD) 29.3 (60.0-200.0); Potassium 3.8 mmol/L (3.5-5.5); Total Bilirubin 0.7 mg/dL (0.3-1.2); Total Protein 5.2 g/dL (6.2-8.2)
[2020-07-05] MEDS: BUMETANIDE 1 MG TAB PO SCH ×2 (09:44→15:56)
[2020-07-05] MEDS: POTASSIUM CHLORIDE ER 10 MEQ TAB.ER.PRT PO SCH ×2 (09:44→20:44)
[2020-07-05] MEDS: APIXABAN 2.5 MG TABLET PO SCH ×2 (09:45→20:44)
[2020-07-05] MEDS: ASCORBIC ACID 500 MG TAB PO SCH (09:45)
[2020-07-05] MEDS: CHOLECALCIFEROL 1,000 UNIT TAB PO SCH (09:50)
--- NOTE | 2020-07-05 11:12 | P.CRDCN ---
History of Present Illness Consult date: 07/05/20 History of present illness: CHIEF COMPLAINT: Shortness of breath HISTORY OF PRESENT ILLNESS: This is a 85 -year old male with a past medical history significant for atrial fibrillation, COPD, heart failure, hypertension and previous nicotine dependence. Patient follows in the office with Dr. Trevizo. We have been asked to see the patient in consultation for shortness of breath. Patient examined this morning at the bedside. Patient reports she came to the hospital secondary to abdominal pain. Patient had a computed tomography scan completed revealing evidence of a hernia in the right lower quadrant. She is being followed by Dr. Ponce for this. Patient currently denies chest pain or pressure. She reports mild shortness of breath at the time of examination and states that she is due for her breathing treatment. She denies increased weight gain prior to hospitalization. She denies increased swelling to her lower extremities. DIAGNOSTICS: EKG reveals atrial fibrillation with no signs of acute ischemia Chest xray underlying emphysema. Interstitial changes again noted within the lungs. Laboratory data: WBC of 0.1. Hemoglobin 11.7. Platelet count 13.9. Sodium 143. Potassium 3.8. BUN 40. Creatinine 1.6. Lactic acid 1.4. BNP 10,300 Current home cardiac medications include metoprolol 50 mg twice a day, Eliquis 2.5 mg twice a day, and Bumex 2 mg twice a day Echocardiogram completed in March 2020 reveals ejection fraction 55-60%, moderate tricuspid regurgitation, and mild pulmonary hypertension REVIEW OF SYSTEMS: At the time of my exam: CONSTITUTIONAL: Denies fever or chills. HEENT: Denies blurred vision, vision changes, or eye pain. Denies hemoptysis CARDIOVASCULAR: Denies chest pain, orthopnea, PND or palpitations RESPIRATORY: Reports mild shortness of breath. GASTROINTESTINAL: Reports abdominal pain. Denies nausea or vomiting. HEMATOLOGIC: Denies bleeding disorders. GENITOURINARY: Denies any blood in urine. SKIN: Denies pruitis. Denies rash. PHYSICAL EXAM: VITAL SIGNS: Reviewed. GENERAL: Well-developed in no acute distress. HEENT: Head is normocephalic. Pupils are equal, round. Sclerae anicteric. Mucous membranes of the mouth are moist. Neck supple. No JVD or thyromegaly LUNGS: Respirations even and unlabored. Lungs with expiratory wheezing noted. HEART: Irregular rate and rhythm. S1 and S2 heard. ABDOMEN: Soft. Nondistended. Nontender. EXTREMITIES: Normal range of motion. No clubbing or cyanosis. Peripheral pulses intact. Trace bilateral lower extremity edema. Chronic wound to left lower extremity NEUROLOGIC: Awake and alert. Oriented x 3. 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 This is likely secondary to her COPD rather than acute exacerbation of her heart failure. Patient may follow up with Dr. Trevizo on an outpatient basis Nurse practitioner note has been reviewed by physician. Signing provider agrees with the documented findings, assessment, and plan of care. Past Medical History Past Medical History: Atrial Fibrillation, Asthma, Heart Failure, COPD, Hypertension, Thyroid Disorder History of Any Multi-Drug Resistant Organisms: None Reported Past Surgical History: AICD, Hysterectomy, Pacemaker, Tonsillectomy Additional Past Surgical History / Comment(s): urethral suspension, ectopic, thyroid biopsy, cataract, glaucoma sx AICD/Pacer implant done in Apr, cardiac ablation 05/27/2018 Past Anesthesia/Blood Transfusion Reactions: No Reported Reaction Type of Cardiac Device: Permanent Pacemaker, AICD Device Placement Date:: Apr 2018 Past Psychological History: No Psychological Hx Reported Smoking Status: Former smoker Past Alcohol Use History: None Reported Past Drug Use History: None Reported Medications and Allergies Home Medications Medication Instructions Recorded Confirmed Type Ascorbic Acid [Vitamin C] 500 mg PO DAILY 04/27/18 07/03/20 History Carboxymethylcellulose Sodium 1 drop BOTH EYES BID PRN 04/27/18 07/03/20 History [Refresh Tears] Cholecalciferol (Vitamin D3) 2,000 unit PO DAILY 04/27/18 07/03/20 History [Vitamin D3] Ipratropium/Albuterol Sulfate 1 puff INHALATION RT-QID PRN 04/27/18 07/03/20 History [Combivent Respimat Inhaler] Latanoprost [Xalatan 0.005%] 1 drop RIGHT EYE HS 04/27/18 07/03/20 History Montelukast [Singulair] 10 mg PO HS 04/27/18 07/03/20 History Apixaban [Eliquis] 2.5 mg PO BID tablet 05/07/18 07/03/20 Rx Bumetanide [BUMEX] 2 mg PO BID@0900,1600 #0 tab 05/31/18 07/03/20 Rx Metoprolol Tartrate [Lopressor] 50 mg PO BID tab 05/31/18 07/03/20 Rx Potassium Chloride 10 meq PO BID 04/01/20 07/03/20 History Vitamin E 400 mg PO DAILY 04/01/20 07/03/20 History HYDROcodone/APAP 10-325MG [Towaco 1 each PO Q8H PRN tab 04/06/20 07/03/20 Rx 10-325] Pantoprazole [Protonix] 40 mg PO AC-BRKFST tablet. 04/06/20 07/03/20 Rx Gabapentin 300 mg PO QAM 07/03/20 07/03/20 History Gabapentin [Neurontin] 600 mg PO HS 07/03/20 07/03/20 History Ipratropium-Albuterol Nebulize 3 ml INHALATION RT-QID PRN 07/03/20 07/03/20 History [Duoneb 0.5 mg-3 mg/3 ml Soln] Allergies Allergy/AdvReac Type Severity Reaction Status Date / Time amlodipine Allergy Unknown Verified 07/03/20 13:58 benazepril [From Lotrel] Allergy Unknown Verified 07/03/20 13:58 cephalexin [From Keflex] Allergy Anaphylaxis Verified 07/03/20 13:58 Cephalosporins Allergy Anaphylaxis Verified 07/03/20 13:58 codeine Allergy Unknown Verified 07/03/20 13:58 Iodinated Contrast Media Allergy Anaphylaxis Verified 07/03/20 13:58 [Iodinated Contrast- Oral and IV Dye] nebivolol [From Bystolic] Allergy Unknown Verified 07/03/20 13:58 olmesartan [From Benicar] Allergy Unknown Verified 07/03/20 13:58 Penicillins Allergy Anaphylaxis Verified 07/03/20 13:58 Sulfa (Sulfonamide Allergy Anaphylaxis Verified 07/03/20 13:58 Antibiotics) apixaban [From Eliquis] AdvReac BONE PAIN Verified 07/03/20 13:58 clonidine AdvReac BLURRED Verified 07/03/20 13:58 VISION, DIZZY, SCRATCHY THROAT furosemide [From Lasix] AdvReac Nausea & Verified 07/03/20 13:58 Vomiting & Diarrhea hydralazine AdvReac CHILLS, Verified 07/03/20 13:58 SHAKING, LIGHT HEADED, FACE FLUSHED isosorbide [From Imdur] AdvReac Rapid Verified 07/03/20 13:58 Heart Rate labetalol AdvReac Dyspnea Verified 07/03/20 13:58 lisinopril AdvReac Nausea & Verified 07/03/20 13:58 Vomiting & Diarrhea/COUGH P[employer] TAPE Allergy Unknown Uncoded 07/03/20 12:26 Physical Exam Vitals: Vital Signs Temp Pulse Resp BP Pulse Ox 07/05/20 07:14 98.1 F 68 12 150/77 07/05/20 00:47 98.2 F 60 15 134/76 99 07/04/20 18:46 98.5 F 64 15 123/67 97 07/04/20 14:11 98.6 F 60 16 117/70 98 Intake and Output 07/04/20 07/05/20 07/05/20 22:59 06:59 14:59 Other: Voiding Method Bedside Commode Bedside Commode # Voids 1 1 Results 07/05/20 05:54 07/05/20 05:54 Cardiac Enzymes 07/05/20 Range/Units 05:54 AST 16 (13-35) U/L CBC 07/05/20 Range/Units 05:54 WBC 12.1 H (3.8-10.6) k/uL RBC 3.87 (3.80-5.40) m/uL Hgb 11.7 (11.4-16.0) gm/dL Hct 38.6 (34.0-46.0) % Plt Count 300 (150-450) k/uL Comprehensive Metabolic Panel 07/05/20 Range/Units 05:54 Sodium 143 (135-145) mmol/L Potassium 3.8 (3.5-5.5) mmol/L Chloride 104 (96-109) mmol/L Carbon Dioxide 27.5 (21.6-31.8) mmol/L BUN 40.0 H (9.0-27.0) mg/dL Creatinine 1.6 H (0.6-1.5) mg/dL Glucose 103 (70-110) mg/dL Calcium 8.6 L (8.7-10.3) mg/dL AST 16 (13-35) U/L ALT 10 (8-44) U/L Alkaline Phosphatase 62 (41-126) U/L Total Protein 5.2 L (6.2-8.2) g/dL Albumin 3.20 L (3.80-4.90) g/dL Current Medications Generic Name Dose Route Start Last Admin Trade Name Freq PRN Reason Stop Dose Admin Hydrocodone Bitart/Acetaminophen 1 each 07/03/20 15:57 07/05/20 05:57 Hydrocodone/Apap 10-325mg 1 Each Tab PO 1 each Q8H PRN Administration Pain Albuterol/Ipratropium 3 ml 07/03/20 15:57 07/04/20 08:31 Ipratropium-Albuterol 3 Ml Neb INHALATION 3 ml RT-QID PRN Administration Shortness Of Breath Apixaban 2.5 mg 07/03/20 21:00 07/05/20 09:45 Apixaban 2.5 Mg Tablet PO 2.5 mg BID ОЛЕГ Administration Artificial Tears 1 drops 07/03/20 15:57 Artificial Tears-Hypromellose Drops 15 Ml Btl BOTH EYES BID PRN dry eyes Ascorbic Acid 500 mg 07/04/20 09:00 07/05/20 09:45 Ascorbic Acid 500 Mg Tab PO 500 mg DAILY ОЛЕГ Administration Bumetanide 2 mg 07/03/20 16:00 07/05/20 09:44 Bumetanide 1 Mg Tab PO 2 mg BID@0900,1600 ОЛЕГ Administration Cholecalciferol 2,000 unit 07/04/20 09:00 07/05/20 09:50 Cholecalciferol 1,000 Unit Tab PO 2,000 unit DAILY ОЛЕГ Administration Gabapentin 300 mg 07/04/20 09:00 07/05/20 09:43 Gabapentin 300 Mg Cap PO 300 mg QAM ОЛЕГ Administration Gabapentin 600 mg 07/03/20 21:00 07/04/20 21:20 Gabapentin 300 Mg Cap PO 600 mg HS ОЛЕГ Administration Latanoprost 1 drops 07/03/20 21:00 07/04/20 21:20 Latanoprost 0.005% Ophth Drops 2.5 Ml Btl RIGHT EYE 1 drops HS ОЛЕГ Administration Metoprolol Tartrate 50 mg 07/03/20 21:00 07/05/20 09:43 Metoprolol Tartrate 50 Mg Tab PO 50 mg BID ОЛЕГ Administration Montelukast Sodium 10 mg 07/03/20 21:00 07/04/20 21:20 Montelukast 10 Mg Tab PO 10 mg HS ОЛЕГ Administration Naloxone HCl 0.2 mg 07/03/20 15:51 Naloxone 0.4 Mg/Ml 1 Ml Vial IV Q2M PRN Opioid Reversal Pantoprazole Sodium 40 mg 07/04/20 07:30 07/05/20 07:32 Pantoprazole 40 Mg Tablet PO 40 mg AC-BRKFST ОЛЕГ Administration Potassium Chloride 10 meq 07/03/20 21:00 07/05/20 09:44 Potassium Chloride Er 10 Meq Tab.Er.Prt PO 10 meq BID ОЛЕГ Administration Vitamin E 400 unit 07/04/20 09:00 07/05/20 09:42 Vitamin E (Dl,Tocopheryl Acet) 400 Unit Cap PO 400 unit DAILY ОЛЕГ Administration Intake and Output 07/04/20 07/05/20 07/05/20 22:59 06:59 14:59 Other: Voiding Method Bedside Commode Bedside Commode # Voids 1 1 07/05/20 05:54 07/05/20 05:54
--- NOTE | 2020-07-05 12:48 | P.PN ---
Subjective Progress Note Date: 07/05/20 CHIEF COMPLAINT: Abdominal pain HISTORY OF PRESENT ILLNESS: Patient presented to the hospital with complaints of right lower quadrant abdominal pain. She has reported some improvement in her pain since she has been admitted to the hospital. Her pain is more suprapubic today. She is passing gas. No bowel movement. She does have some pain after eating. Afebrile. Tolerating regular diet. WBC is 12.1 PHYSICAL EXAM: VITAL SIGNS: Reviewed. GENERAL: Well-developed in no acute distress. HEENT: No sclera icterus. Extraocular movements grossly intact. Moist buccal mucosa. Head is atraumatic, normocephalic. ABDOMEN: Soft. Nondistended. Tenderness suprapubic area with palpation. No signs of peritonitis NEUROLOGIC: Alert and oriented. Cranial nerves II through XII grossly intact. ASSESSMENT: 1. Abdominal pain likely secondary to small abdominal wall Hernia in the right lower quadrant that contains a small piece of fat. 2. Chronic atrial fibrillation anticoagulated with Eliquis 3. History of pacemaker and AICD placement 4. History of chronic Hypoxic respiratory failure Due to end-stage COPD PLAN: -Recommend conservative management -No surgical intervention planned at this time -Continue heart healthy diet Physician [employer] note has been reviewed by physician. Signing provider agrees with the documented findings, assessment, and plan of care. Objective - Vital Signs Vital signs: Vital Signs Temp 98.1 F 07/05/20 07:14 Pulse 68 07/05/20 07:14 Resp 12 07/05/20 07:14 BP 150/77 07/05/20 07:14 Pulse Ox 99 07/05/20 00:47 Intake & Output 07/04/20 07/05/20 07/05/20 18:59 06:59 18:59 Other: Voiding Method Bedside Commode Bedside Commode # Voids 2 1 - Labs CBC & Chem 7: 07/05/20 05:54 07/05/20 05:54 Labs: Abnormal Lab Results - Last 24 Hours (Table) 07/05/20 07/05/20 Range/Units 05:54 05:54 WBC 12.1 H (3.8-10.6) k/uL MCHC 30.3 L (31.0-37.0) g/dL Neutrophils # 9.9 H (1.3-7.7) k/uL BUN 40.0 H (9.0-27.0) mg/dL Creatinine 1.6 H (0.6-1.5) mg/dL Est GFR (CKD-EPI)AfAm 33.9 L (60.0-200.0) Est GFR (CKD-EPI)NonAf 29.3 L (60.0-200.0) BUN/Creatinine Ratio 25.00 H (12.00-20.00) Ratio Calcium 8.6 L (8.7-10.3) mg/dL Total Protein 5.2 L (6.2-8.2) g/dL Albumin 3.20 L (3.80-4.90) g/dL Microbiology - Last 24 Hours (Table) 07/03/20 16:26 Blood Culture - Preliminary Blood No Growth after 24 hours
[2020-07-05] MEDS: IPRATROPIUM-ALBUTEROL 3 ML NEB INHALATION PRN ×2 (14:00→16:25)
--- NOTE | 2020-07-05 17:57 | P.PN ---
Subjective Progress Note Date: 07/05/20 This is an 85-year-old female patient who presented to the ER with abdominal pain that had been occurring intermittently over the past few days patient reports the pain was sharp in nature. Patient reports she had decreased appetite. Additional medical history includes A. fib in which she is on eliquis , asthma, heart failure, COPD, hypertension, thyroid disorder, pacemaker, AICD and ex-smoker. Patient also reports she's had some wheezing. Chest x-ray completed showing underlying emphysema. Interstitial changes again noted within the lungs progression of thoracic compression fracture likely T6. Abdominal x- ray completed showing suspect there may be a small hernia in the right lower quadrant some local inflammation changes present there may be herniation of fat with stranding ablation no definitive bowel loop contained at this level. Some mesenteric edema or inflammatory change correlate for possible peritonitis small right pleural effusion cholelithiasis hepatic steatosis diverticulitis. Correlate to exclude colitis. Patient started on Flagyl and Levaquin and surgical consult placed. Dr. 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 Cardiology services also consulted due to cardiac history. At this time patient is resting comfortably in bed. Patient reports some abdominal discomfort and tenderness to palpation. Patient denies any chest pain. Does report some shortness of breath. Patient denies nausea vomiting or diarrhea. Patient denies any urinary burning or frequency On 07/05/2020 patient was seen and examined on the medical floor she is alert and oriented 3 in no apparent distress pain in the right lower quadrant is improving gradually she is tolerating diet well, she has not had a bowel movement in the last 3-4 days, she is complaining of generalized weakness otherwise she denies any complaints there is no fever or chills no headache or dizziness no chest pain no shortness of breath no cough no nausea or vomiting no diarrhea no blood in the stools no burning with urination no frequency or urgency no hematuria Objective - Vital Signs Vital signs: Vital Signs Temp 97.7 F 07/05/20 14:55 Pulse 64 07/05/20 16:35 Resp 16 07/05/20 16:35 BP 139/71 07/05/20 14:55 Pulse Ox 97 07/05/20 15:57 Intake & Output 07/04/20 07/05/20 07/05/20 18:59 06:59 18:59 Intake Total 540 Balance 540 Intake: Oral 540 Other: Voiding Method Bedside Commode Bedside Commode # Voids 2 1 1 - Exam In general patient is alert and oriented 3 in no distress Head normocephalic and atraumatic Neck supple no JVD no goiter Lungs clear to auscultation bilaterally no wheezing or crackles Heart regular rate and rhythm S1-S2, no rub or gallop Abdomen is soft tenderness to palpation to mid abdomen nondistended positive bowel sounds no hepatosplenomegaly Extremities no edema no cyanosis or clubbing Neuro no gross focal neurological deficits - Labs CBC & Chem 7: 07/05/20 05:54 07/05/20 05:54 Labs: Abnormal Lab Results - Last 24 Hours (Table) 07/05/20 07/05/20 Range/Units 05:54 05:54 WBC 12.1 H (3.8-10.6) k/uL MCHC 30.3 L (31.0-37.0) g/dL Neutrophils # 9.9 H (1.3-7.7) k/uL BUN 40.0 H (9.0-27.0) mg/dL Creatinine 1.6 H (0.6-1.5) mg/dL Est GFR (CKD-EPI)AfAm 33.9 L (60.0-200.0) Est GFR (CKD-EPI)NonAf 29.3 L (60.0-200.0) BUN/Creatinine Ratio 25.00 H (12.00-20.00) Ratio Calcium 8.6 L (8.7-10.3) mg/dL Total Protein 5.2 L (6.2-8.2) g/dL Albumin 3.20 L (3.80-4.90) g/dL Microbiology - Last 24 Hours (Table) 07/03/20 16:26 Blood Culture - Preliminary Blood No Growth after 24 hours Assessment and Plan Plan: 1. Acute abdominal pain secondary to peritonitis versus early bleaching changes due to mesenteric edema suspicious of peritonitis. CT of abdomen completed please see above results. Surgical services have been consulted. Patient started on Levaquin and Flagyl. Blood Culture ordered 2. Acute exacerbation of COPD. Dr. Mitchell has been consulted 3. 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 Chronic atrial fibrillation on eliquis 5. History of pacemaker and AICD placement. Cardiology services have been consulted 6. Peptic ulcer disease 7. History of peripheral neuropathy 8. Generalized anxiety disorder 9. Essential hypertension DVT prophylaxis eliquis. GI prophylaxis Protonix Surgical, pulmonary and cardiology services consulted Flagyl and Tao for antibiotics. blood culture ordered PT OT ordered Social work consult for possible placement
[2020-07-05] MEDS: MONTELUKAST 10 MG TAB PO SCH (20:45)
[2020-07-05] MEDS: LATANOPROST 0.005% OPHTH DROPS 2.5 ML BTL RIGHT EYE SCH (21:11)
[2020-07-06] MEDS: HYDROcodone/APAP 10-325MG 1 EACH TAB PO PRN ×3 (00:46→20:29)
[2020-07-06] MEDS: IPRATROPIUM-ALBUTEROL 3 ML NEB INHALATION PRN ×2 (01:24→08:36)
[2020-07-06 06:19] LABS: Basophils % (A) 1 %; Eosinophils # (A) 0.3 k/uL (0-0.7); Eosinophils % (A) 3 %; HCT 37.9 % (34.0-46.0); HGB 11.3 gm/dL (11.4-16.0); Hypochromasia Marked; Lymphocytes # (A) 1.7 k/uL (1.0-4.8); Lymphocytes % (A) 20 %; MCH 29.7 pg (25.0-35.0); MCHC 29.9 g/dL (31.0-37.0); MCV 99.5 fL (80.0-100.0); Mean Platelet Volume 8.2; Monocytes # (A) 0.6 k/uL (0-1.0); Monocytes % (A) 7 %; Neutrophils # (A) 5.9 k/uL (1.3-7.7); Neutrophils % (A) 69 %; Platelet Count 271 k/uL (150-450); RBC 3.81 m/uL (3.80-5.40); RDW 13.8 % (11.5-15.5); WBC 8.5 k/uL (3.8-10.6)
[2020-07-06] MEDS: PANTOPRAZOLE 40 MG TABLET PO SCH (07:45)
[2020-07-06] MEDS: APIXABAN 2.5 MG TABLET PO SCH ×2 (08:00→20:29)
[2020-07-06] MEDS: BUMETANIDE 1 MG TAB PO SCH ×2 (08:00→15:29)
[2020-07-06] MEDS: VITAMIN E (DL,TOCOPHERYL ACET) 400 UNIT CAP PO SCH (08:00)
[2020-07-06] MEDS: CHOLECALCIFEROL 1,000 UNIT TAB PO SCH (08:01)
[2020-07-06] MEDS: GABAPENTIN 300 MG CAP PO SCH ×2 (08:02→20:29)
[2020-07-06] MEDS: METOPROLOL TARTRATE 50 MG TAB PO SCH ×2 (08:06→20:29)
[2020-07-06] MEDS: POTASSIUM CHLORIDE ER 10 MEQ TAB.ER.PRT PO SCH ×2 (08:08→20:29)
[2020-07-06] MEDS: ASCORBIC ACID 500 MG TAB PO SCH (08:11)
--- NOTE | 2020-07-06 09:18 | P.PN ---
Progress Note - Text Progress Note Date: 07/06/20 The patient feels better. She is tolerating her diet. She denies any significant abdominal pain. On exam vital signs are stable. Abdomen is soft. There is no significant tenderness. There is no rebound or guarding. Patient will be observed clinically. No surgical intervention is planned at this point. Her small hernia may be repaired as an outpatient if she becomes symptomatic.
[2020-07-06 10:13] LABS: African American GFR (CKD) 33.9 (60.0-200.0); Albumin 3.1 g/dL (3.80-4.90); Albumin/Globulin Ratio 1.63 (1.60-3.17); Anion Gap 8.4 mmol/L (4.00-12.00); BUN/Creat Ratio 26.25 Ratio (12.00-20.00); Calcium 8.4 mg/dL (8.7-10.3); Carbon Dioxide 29.6 mmol/L (21.6-31.8); Globulin 1.9 g/dL (1.6-3.3); Non-African American GFR(CKD) 29.3 (60.0-200.0); Total Bilirubin 0.8 mg/dL (0.3-1.2)
--- NOTE | 2020-07-06 10:52 | P.PN ---
Subjective Progress Note Date: 07/06/20 This is an 85-year-old female patient who presented to the ER with abdominal pain that had been occurring intermittently over the past few days patient reports the pain was sharp in nature. Patient reports she had decreased appetite. Additional medical history includes A. fib in which she is on eliquis , asthma, heart failure, COPD, hypertension, thyroid disorder, pacemaker, AICD and ex-smoker. Patient also reports she's had some wheezing. Chest x-ray completed showing underlying emphysema. Interstitial changes again noted within the lungs progression of thoracic compression fracture likely T6. Abdominal x- ray completed showing suspect there may be a small hernia in the right lower quadrant some local inflammation changes present there may be herniation of fat with stranding ablation no definitive bowel loop contained at this level. Some mesenteric edema or inflammatory change correlate for possible peritonitis small right pleural effusion cholelithiasis hepatic steatosis diverticulitis. Correlate to exclude colitis. Patient started on Flagyl and Levaquin and surgical consult placed. Dr. 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 Cardiology services also consulted due to cardiac history. At this time patient is resting comfortably in bed. Patient reports some abdominal discomfort and tenderness to palpation. Patient denies any chest pain. Does report some shortness of breath. Patient denies nausea vomiting or diarrhea. Patient denies any urinary burning or frequency On 07/05/2020 patient was seen and examined on the medical floor she is alert and oriented 3 in no apparent distress pain in the right lower quadrant is improving gradually she is tolerating diet well, she has not had a bowel movement in the last 3-4 days, she is complaining of generalized weakness otherwise she denies any complaints there is no fever or chills no headache or dizziness no chest pain no shortness of breath no cough no nausea or vomiting no diarrhea no blood in the stools no burning with urination no frequency or urgency no hematuria On 07/06/2020 patient is alert and oriented 3. Patient reports abdominal pain has improved still some tenderness to palpation and movement. Patient has been tolerating diet and appetite has increased. Surgical services has no plans for surgical intervention at this time. Dr. Brown has been consulted for discharge planning. Did discuss case with case management at this time it is recommended for rehab upon discharge. Patient denies chest pain or shortness breath. Patient denies nausea vomiting or diarrhea. Patient denies any urinary burning or frequency Objective - Vital Signs Vital signs: Vital Signs Temp 97.8 F 07/06/20 07:27 Pulse 64 07/06/20 08:46 Resp 12 07/06/20 07:56 BP 152/74 07/06/20 07:27 Pulse Ox 100 07/06/20 08:37 Intake & Output 07/05/20 07/06/20 07/06/20 18:59 06:59 18:59 Intake Total 540 Balance 540 Intake: Oral 540 Other: Voiding Method Bedside Commode Bedside Commode # Voids 1 3 3 # Bowel Movements 1 1 - Exam In general patient is alert and oriented 3 in no distress Head normocephalic and atraumatic Neck supple no JVD no goiter Lungs clear to auscultation bilaterally no wheezing or crackles Heart regular rate and rhythm S1-S2, no rub or gallop Abdomen is soft tenderness to palpation to mid abdomen nondistended positive bowel sounds no hepatosplenomegaly Extremities no edema no cyanosis or clubbing Neuro no gross focal neurological deficits - Labs CBC & Chem 7: 07/06/20 05:32 07/06/20 05:32 Labs: Abnormal Lab Results - Last 24 Hours (Table) 07/06/20 07/06/20 Range/Units 05:32 05:32 Hgb 11.3 L (11.4-16.0) gm/dL MCHC 29.9 L (31.0-37.0) g/dL BUN 42.0 H (9.0-27.0) mg/dL Creatinine 1.6 H (0.6-1.5) mg/dL Est GFR (CKD-EPI)AfAm 33.9 L (60.0-200.0) Est GFR (CKD-EPI)NonAf 29.3 L (60.0-200.0) BUN/Creatinine Ratio 26.25 H (12.00-20.00) Ratio Calcium 8.4 L (8.7-10.3) mg/dL Total Protein 5.0 L (6.2-8.2) g/dL Albumin 3.10 L (3.80-4.90) g/dL Microbiology - Last 24 Hours (Table) 07/03/20 16:26 Blood Culture - Preliminary Blood No Growth after 48 hours Assessment and Plan Assessment: 1. Acute abdominal pain secondary to peritonitis versus early bleaching changes due to mesenteric edema suspicious of peritonitis. CT of abdomen completed please see above results. Surgical services have been consulted. Patient started on Levaquin and Flagyl. Blood Culture negative. Antibiotics have been DC'd. Diet has been tolerated. No surgical intervention at this time 2. Acute exacerbation of COPD. Dr. Mitchell has been consulted 3. 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 Chronic atrial fibrillation on eliquis 5. History of pacemaker and AICD placement. Per cardiology patient [place] shortness of breath does appear at her baseline no further workup per cardiology patient to follow-up with cardiac he services outpatient 6. Peptic ulcer disease 7. History of peripheral neuropathy 8. Generalized anxiety disorder 9. Essential hypertension 10. Acute kidney injury. Creatinine 1.6 and bun 42. We'll continue to monitor DVT prophylaxis eliquis. GI prophylaxis Protonix Surgical, pulmonary and cardiology services consulted PT OT ordered Social work consult for possible placement Dr. Brown has been consulted for possible inpatient rehab
--- NOTE | 2020-07-06 10:53 | P.PN ---
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 hypoxic respiratory failure due to end-stage COPD Generalized anxiety disorder Chronic atrial fibrillation on anticoagulation Component of asthma and asthmatic bronchitis Peptic ulcer disease Peripheral neuropathy hypertension hypertensive cardiovascular disease 07/06/2020, patient seen eval examined during the rounds comfortable on 2-1/2 L oxygen denies any chest pain does get short of breath on activity and exertion, intermittent cough is present nonproductive dry, abdominal pain is stable but however intermittently happens during activity and certain been over in position, patient is being followed by surgical services, This is a 85-year-old female with history of end-stage COPD and chronic asthmatic bronchitis on home oxygen and nebulizer treatment, patient is home oxygen dependent, oxygen need has however remained stable, patient came into the hospital with 3-4 day history of intermittent lower abdominal pain intermittent loose stool, has been feeling very weak, however denies any cough or sputum production she has the shortness of breath which is not much change Objective - Vital Signs Vital signs: Vital Signs Temp 97.8 F 07/06/20 07:27 Pulse 64 07/06/20 08:46 Resp 12 07/06/20 07:56 BP 152/74 07/06/20 07:27 Pulse Ox 100 07/06/20 08:37 Intake & Output 07/05/20 07/06/20 07/06/20 18:59 06:59 18:59 Intake Total 540 Balance 540 Intake: Oral 540 Other: Voiding Method Bedside Commode Bedside Commode # Voids 1 3 3 # Bowel Movements 1 1 - Exam - Constitutional General appearance: average body habitus, cooperative, disheveled - EENT Eyes: PERRLA Ears: bilateral: normal - Neck Neck: normal ROM Carotids: bilateral: upstroke normal Thyroid: bilateral: normal size - Respiratory Respiratory: bilateral: CTA, diminished - Cardiovascular Rhythm: regular Heart sounds: normal: S1, S2 - Gastrointestinal General gastrointestinal: normal bowel sounds, soft - Neurologic Neurologic: CNII-XII intact - Musculoskeletal Musculoskeletal: gait normal, generalized weakness, strength equal bilaterally - Psychiatric Psychiatric: A&O x's 3, appropriate affect, intact judgment & insight - Labs CBC & Chem 7: 07/06/20 05:32 07/06/20 05:32 Labs: Abnormal Lab Results - Last 24 Hours (Table) 07/06/20 07/06/20 Range/Units 05:32 05:32 Hgb 11.3 L (11.4-16.0) gm/dL MCHC 29.9 L (31.0-37.0) g/dL BUN 42.0 H (9.0-27.0) mg/dL Creatinine 1.6 H (0.6-1.5) mg/dL Est GFR (CKD-EPI)AfAm 33.9 L (60.0-200.0) Est GFR (CKD-EPI)NonAf 29.3 L (60.0-200.0) BUN/Creatinine Ratio 26.25 H (12.00-20.00) Ratio Calcium 8.4 L (8.7-10.3) mg/dL Total Protein 5.0 L (6.2-8.2) g/dL Albumin 3.10 L (3.80-4.90) g/dL Microbiology - Last 24 Hours (Table) 07/03/20 16:26 Blood Culture - Preliminary Blood No Growth after 48 hours Assessment and Plan Assessment: Abdominal pain early peritonitis versus early inflammatory changes due to mesenteric edema suspicious of peritonitis 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 Continue breathing treatments supplemental oxygen deep breathing exercises further evaluation pending plan of care as per clinical response of patient will follow surgical advice Time with Patient: Greater than 30
--- NOTE | 2020-07-06 11:06 | P.CONS ---
History of Present Illness - Chief Complaint Medical debility - History of Present Illness I had the opportunity to see patient for inpatient rehab consultation with regard to medical debility. She was admitted to [facility] July 03 with right lower quadrant pain. CT demonstrated small hernia with inflammatory change. Chest x-ray with emphysematous change. Seen by Dr. Mitchell for COPD, chronic bronchitic asthma. Surgical evaluation and recommended conservative treatment. Seen by cardiology for atrial fibrillation. OT reports minimal assistance for upper dressing and maximal assist for lower dressing as well as moderate assistance for bathing, toileting and transfers. PT prescribed. Previous functional history as elicited from patient: 85-year-old left-handed white female who is lives in one floor home alone. Retired. Daughter comes and does the laundry and driving. Patient independent with very simple cooking as well sitdown bath and gait with [address] Mitchell. Denies tobacco or alcohol. Family history mother with heart disease. Review of Systems Review of systems: ENT: Denies sneezes or discharge. Eyes: Denies discharge or photophobia. Cardiac: Denies chest pain or palpitation. Pulmonary: Denies cough or shortness of breath. Breast: Denies discharge or lumps. Gastrointestinal: Still with right lower quadrant discomfort. Genitourinary: Denies discharge or frequency. Musculoskeletal: Denies muscle or bone aches. Neurologic: Denies motor or sensory change. Endocrine: Denies shakes or sweats. Oncology: Denies cancers. Dermatologic: Denies rash, itching, pruritus. ALLERGY/immunology: Denies sneezes, rashes. Past Medical History Past Medical History: Atrial Fibrillation, Asthma, Heart Failure, COPD, Hypertension, Thyroid Disorder History of Any Multi-Drug Resistant Organisms: None Reported Past Surgical History: AICD, Hysterectomy, Pacemaker, Tonsillectomy Additional Past Surgical History / Comment(s): urethral suspension, ectopic, thyroid biopsy, cataract, glaucoma sx AICD/Pacer implant done in Apr, cardiac ablation 05/27/2018 Past Anesthesia/Blood Transfusion Reactions: No Reported Reaction Type of Cardiac Device: Permanent Pacemaker, AICD Device Placement Date:: Apr 2018 Past Psychological History: No Psychological Hx Reported Smoking Status: Former smoker Past Alcohol Use History: None Reported Past Drug Use History: None Reported Medications and Allergies Home Medications Medication Instructions Recorded Confirmed Type Ascorbic Acid [Vitamin C] 500 mg PO DAILY 04/27/18 07/03/20 History Carboxymethylcellulose Sodium 1 drop BOTH EYES BID PRN 04/27/18 07/03/20 History [Refresh Tears] Cholecalciferol (Vitamin D3) 2,000 unit PO DAILY 04/27/18 07/03/20 History [Vitamin D3] Ipratropium/Albuterol Sulfate 1 puff INHALATION RT-QID PRN 04/27/18 07/03/20 History [Combivent Respimat Inhaler] Latanoprost [Xalatan 0.005%] 1 drop RIGHT EYE HS 04/27/18 07/03/20 History Montelukast [Singulair] 10 mg PO HS 04/27/18 07/03/20 History Apixaban [Eliquis] 2.5 mg PO BID tablet 05/07/18 07/03/20 Rx Bumetanide [BUMEX] 2 mg PO BID@0900,1600 #0 tab 05/31/18 07/03/20 Rx Metoprolol Tartrate [Lopressor] 50 mg PO BID tab 05/31/18 07/03/20 Rx Potassium Chloride 10 meq PO BID 04/01/20 07/03/20 History Vitamin E 400 mg PO DAILY 04/01/20 07/03/20 History HYDROcodone/APAP 10-325MG [[place] 1 each PO Q8H PRN tab 04/06/20 07/03/20 Rx 10-325] Pantoprazole [Protonix] 40 mg PO AC-BRKFST tablet. 04/06/20 07/03/20 Rx Gabapentin 300 mg PO QAM 07/03/20 07/03/20 History Gabapentin [Neurontin] 600 mg PO HS 07/03/20 07/03/20 History Ipratropium-Albuterol Nebulize 3 ml INHALATION RT-QID PRN 07/03/20 07/03/20 History [Duoneb 0.5 mg-3 mg/3 ml Soln] Allergies Allergy/AdvReac Type Severity Reaction Status Date / Time amlodipine Allergy Unknown Verified 07/03/20 13:58 benazepril [From Lotrel] Allergy Unknown Verified 07/03/20 13:58 cephalexin [From Keflex] Allergy Anaphylaxis Verified 07/03/20 13:58 Cephalosporins Allergy Anaphylaxis Verified 07/03/20 13:58 codeine Allergy Unknown Verified 07/03/20 13:58 Iodinated Contrast Media Allergy Anaphylaxis Verified 07/03/20 13:58 [Iodinated Contrast- Oral and IV Dye] nebivolol [From Bystolic] Allergy Unknown Verified 07/03/20 13:58 olmesartan [From Benicar] Allergy Unknown Verified 07/03/20 13:58 Penicillins Allergy Anaphylaxis Verified 07/03/20 13:58 Sulfa (Sulfonamide Allergy Anaphylaxis Verified 07/03/20 13:58 Antibiotics) apixaban [From Eliquis] AdvReac BONE PAIN Verified 07/03/20 13:58 clonidine AdvReac BLURRED Verified 07/03/20 13:58 VISION, DIZZY, SCRATCHY THROAT furosemide [From Lasix] AdvReac Nausea & Verified 07/03/20 13:58 Vomiting & Diarrhea hydralazine AdvReac CHILLS, Verified 07/03/20 13:58 SHAKING, LIGHT HEADED, FACE FLUSHED isosorbide [From Imdur] AdvReac Rapid Verified 07/03/20 13:58 Heart Rate labetalol AdvReac Dyspnea Verified 07/03/20 13:58 lisinopril AdvReac Nausea & Verified 07/03/20 13:58 Vomiting & Diarrhea/COUGH PAPER MEDICAL TAPE Allergy Unknown Uncoded 07/03/20 12:26 Physical Exam Vitals: Vital Signs Temp Pulse Pulse Resp BP Pulse Ox 07/06/20 08:46 64 07/06/20 08:37 66 100 07/06/20 07:56 62 12 07/06/20 07:27 97.8 F 62 12 152/74 99 07/06/20 01:56 57 L 07/06/20 01:24 57 L 07/06/20 00:49 97.6 F 60 16 164/73 99 07/05/20 19:28 98.1 F 60 16 148/72 98 07/05/20 19:17 96.3 F L 92 20 136/66 07/05/20 19:02 96.3 F L 93 22 136/66 07/05/20 16:35 64 16 07/05/20 16:25 63 16 07/05/20 15:57 65 97 07/05/20 14:55 97.7 F 47 L 16 139/71 91 L 07/05/20 14:11 72 10/29/20 14:01 72 Intake and Output 07/05/20 07/06/20 07/06/20 22:59 06:59 14:59 Other: Voiding Method Bedside Commode Bedside Commode Bedside Commode # Voids 1 3 3 # Bowel Movements 1 1 Skin: Atrophic, intact. General: Overweight build and comfortable appearance. Appears much younger than stated age. Head: Normocephalic, atraumatic. Eyes: Symmetric. Pupils equal round. Ears: Symmetric. Hearing within normal limits. Mouth: Clear. Neck: Supple. Carotid without bruit. Cardiac: Regular rate and rhythm. Lungs: Clear anteriorly and posteriorly. Abdomen: Soft active nontender. Overweight. Extremities: Normal tone. Overweight. Neurological: Mental status: Alert, cooperative, pleasant. Cranial nerves: Symmetric facial tone and trapezius. Motor: Active movement and normal isolation all 4 limbs. Sensation: Intact throughout. DTRs: Symmetric and equal throughout. Mobility: Reports requires assistance for transfers including to bedside chair or commode. Results CBC & Chem 7: 07/06/20 05:32 07/06/20 05:32 Labs: Abnormal Lab Results - Last 24 Hours (Table) 07/06/20 07/06/20 Range/Units 05:32 05:32 Hgb 11.3 L (11.4-16.0) gm/dL MCHC 29.9 L (31.0-37.0) g/dL BUN 42.0 H (9.0-27.0) mg/dL Creatinine 1.6 H (0.6-1.5) mg/dL Est GFR (CKD-EPI)AfAm 33.9 L (60.0-200.0) Est GFR (CKD-EPI)NonAf 29.3 L (60.0-200.0) BUN/Creatinine Ratio 26.25 H (12.00-20.00) Ratio Calcium 8.4 L (8.7-10.3) mg/dL Total Protein 5.0 L (6.2-8.2) g/dL Albumin 3.10 L (3.80-4.90) g/dL Microbiology - Last 24 Hours (Table) 07/03/20 16:26 Blood Culture - Preliminary Blood No Growth after 48 hours Assessment and Plan (1) Abdominal pain Current Visit: Yes Status: Acute Code(s): R10.9 - UNSPECIFIED ABDOMINAL PAIN SNOMED Code(s): 22756894 (2) Acute exacerbation of chronic obstructive airways disease Current Visit: No Status: Acute Code(s): J44.1 - CHRONIC OBSTRUCTIVE PULMONARY DISEASE W (ACUTE) EXACERBATION SNOMED Code(s): 962102992 (3) Congestive heart failure Current Visit: No Status: Acute Code(s): I50.9 - HEART FAILURE, UNSPECIFIED SNOMED Code(s): 07375920 Plan: Impression: 1. Medical debility. 2. Right lower quadrant pain, small hernia with inflammatory change. 3. COPD exacerbation with bronchitic asthma. 4. Lower extremity cellulitis and edema. 5. Hypertension. 6. CHF. 7. Hypothyroid. Comments and plan: At this time OT ongoing in PT prescribed. Will require PT note for possible inpatient rehab. At this time patient still some right lower quadrant discomfort and awaiting clearance of medical problem first. It is quite possible patient will have marked functional improvement with resolution of this discomfort.
[2020-07-06] MEDS: MONTELUKAST 10 MG TAB PO SCH (20:29)
[2020-07-06] MEDS: LATANOPROST 0.005% OPHTH DROPS 2.5 ML BTL RIGHT EYE SCH (20:31)
[2020-07-07 07:20] LABS: Basophils % (A) 0 %; Eosinophils # (A) 0.3 k/uL (0-0.7); Eosinophils % (A) 4 %; HCT 39.9 % (34.0-46.0); HGB 12.3 gm/dL (11.4-16.0); Hypochromasia Moderate; Lymphocytes # (A) 1.6 k/uL (1.0-4.8); Lymphocytes % (A) 18 %; MCH 30.4 pg (25.0-35.0); MCHC 30.8 g/dL (31.0-37.0); MCV 98.9 fL (80.0-100.0); Mean Platelet Volume 8.7; Monocytes # (A) 0.5 k/uL (0-1.0); Monocytes % (A) 6 %; Neutrophils # (A) 6.2 k/uL (1.3-7.7); Neutrophils % (A) 71 %; Platelet Count 276 k/uL (150-450); RBC 4.03 m/uL (3.80-5.40); RDW 13.7 % (11.5-15.5); WBC 8.7 k/uL (3.8-10.6)
[2020-07-07] MEDS: HYDROcodone/APAP 10-325MG 1 EACH TAB PO PRN ×2 (07:37→16:29)
[2020-07-07] MEDS: ASCORBIC ACID 500 MG TAB PO SCH (07:38)
[2020-07-07] MEDS: PANTOPRAZOLE 40 MG TABLET PO SCH (07:38)
[2020-07-07] MEDS: CHOLECALCIFEROL 1,000 UNIT TAB PO SCH (07:38)
[2020-07-07] MEDS: METOPROLOL TARTRATE 50 MG TAB PO SCH ×2 (07:38→18:47)
[2020-07-07] MEDS: GABAPENTIN 300 MG CAP PO SCH ×2 (07:38→18:47)
[2020-07-07] MEDS: APIXABAN 2.5 MG TABLET PO SCH (07:38)
[2020-07-07] MEDS: POTASSIUM CHLORIDE ER 10 MEQ TAB.ER.PRT PO SCH ×2 (07:38→18:47)
[2020-07-07] MEDS: VITAMIN E (DL,TOCOPHERYL ACET) 400 UNIT CAP PO SCH (07:39)
[2020-07-07] MEDS: BUMETANIDE 1 MG TAB PO SCH ×2 (07:39→16:29)
[2020-07-07 08:56] LABS: ALT 9 U/L (4-34); AST 22 U/L (14-36); African American GFR (CKD) 41 (>60 ml/min/1.73 sqM); Albumin 2.7 g/dL (3.5-5.0); Albumin/Globulin Ratio 1.1; Alkaline Phosphatase 61 U/L (38-126); Anion Gap 6 mmol/L; Blood Urea Nitrogen 38 mg/dL (7-17); Calcium 8.7 mg/dL (8.4-10.2); Carbon Dioxide 28 mmol/L (22-30); Chloride 104 mmol/L (98-107); Globulin 2.5 g/dL; Glucose 119 mg/dL (74-99); Non-African American GFR(CKD) 35 (>60 ml/min/1.73 sqM); Sodium 138 mmol/L (137-145); Total Bilirubin 0.8 mg/dL (0.2-1.3); Total Protein 5.2 g/dL (6.3-8.2)
[2020-07-07] MEDS: ONDANSETRON 4 MG/2 ML VIAL IVP PRN (11:03)
--- NOTE | 2020-07-07 11:52 | P.PN ---
Subjective Progress Note Date: 07/07/20 This is an 85-year-old female patient who presented to the ER with abdominal pain that had been occurring intermittently over the past few days patient reports the pain was sharp in nature. Patient reports she had decreased appetite. Additional medical history includes A. fib in which she is on eliquis , asthma, heart failure, COPD, hypertension, thyroid disorder, pacemaker, AICD and ex-smoker. Patient also reports she's had some wheezing. Chest x-ray completed showing underlying emphysema. Interstitial changes again noted within the lungs progression of thoracic compression fracture likely T6. Abdominal x- ray completed showing suspect there may be a small hernia in the right lower quadrant some local inflammation changes present there may be herniation of fat with stranding ablation no definitive bowel loop contained at this level. Some mesenteric edema or inflammatory change correlate for possible peritonitis small right pleural effusion cholelithiasis hepatic steatosis diverticulitis. Correlate to exclude colitis. Patient started on Flagyl and Levaquin and surgical consult placed. 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 Cardiology services also consulted due to cardiac history. At this time patient is resting comfortably in bed. Patient reports some abdominal discomfort and tenderness to palpation. Patient denies any chest pain. Does report some shortness of breath. Patient denies nausea vomiting or diarrhea. Patient denies any urinary burning or frequency On 07/05/2020 patient was seen and examined on the medical floor she is alert and oriented 3 in no apparent distress pain in the right lower quadrant is improving gradually she is tolerating diet well, she has not had a bowel movement in the last 3-4 days, she is complaining of generalized weakness otherwise she denies any complaints there is no fever or chills no headache or dizziness no chest pain no shortness of breath no cough no nausea or vomiting no diarrhea no blood in the stools no burning with urination no frequency or urgency no hematuria On 07/06/2020 patient is alert and oriented 3. Patient reports abdominal pain has improved still some tenderness to palpation and movement. Patient has been tolerating diet and appetite has increased. Surgical services has no plans for surgical intervention at this time. Dr. Brown has been consulted for discharge planning. Did discuss case with case management at this time it is recommended for rehab upon discharge. Patient denies chest pain or shortness breath. Patient denies nausea vomiting or diarrhea. Patient denies any urinary burning or frequency On 07/07/2020 patient was seen and examined on the medical floor she is alert and oriented 3 of more abdominal pain today was nausea and 1 episode of vomiting this morning otherwise she denies any complaints there is no fever or chills no headache or dizziness no chest pain no shortness of breath no cough, no diarrhea no blood in the stools no burning with urination no frequency or urgency and no hematuria. At this time will proceed with repeating computed tomography scan of the abdomen and pelvis will use oral contrast, but avoid IV contrast at this time due to elevated BUN and creatinine, will notify surgery of worsening abdominal symptoms. Objective - Vital Signs Vital signs: Vital Signs Temp 98.2 F 07/07/20 07:00 Pulse 60 07/07/20 07:00 Resp 17 07/07/20 07:00 BP 162/93 07/07/20 07:00 Pulse Ox 99 07/07/20 07:00 Intake & Output 07/06/20 07/07/20 07/07/20 18:59 06:59 18:59 Other: Voiding Method Bedside Commode Bedside Commode Bedside Commode # Voids 3 3 # Bowel Movements 0 1 - Exam In general patient is alert and oriented 3 in no distress Head normocephalic and atraumatic Neck supple no JVD no goiter Lungs clear to auscultation bilaterally no wheezing or crackles Heart regular rate and rhythm S1-S2, no rub or gallop Abdomen is soft tenderness to palpation to mid abdomen nondistended positive bowel sounds no hepatosplenomegaly Extremities no edema no cyanosis or clubbing Neuro no gross focal neurological deficits - Labs CBC & Chem 7: 07/07/20 06:04 07/07/20 06:04 Labs: Abnormal Lab Results - Last 24 Hours (Table) 07/07/20 07/07/20 Range/Units 06:04 06:04 MCHC 30.8 L (31.0-37.0) g/dL BUN 38 H (7-17) mg/dL Creatinine 1.38 H (0.52-1.04) mg/dL Glucose 119 H (74-99) mg/dL Total Protein 5.2 L (6.3-8.2) g/dL Albumin 2.7 L (3.5-5.0) g/dL Microbiology - Last 24 Hours (Table) 07/03/20 16:26 Blood Culture - Preliminary Blood No Growth after 72 hours Assessment and Plan Plan: 1. Acute abdominal pain secondary to peritonitis versus early bleaching changes due to mesenteric edema suspicious of peritonitis. CT of abdomen completed please see above results. Surgical services have been consulted. Patient started on Levaquin and Flagyl. Blood Culture ordered, at this time patient is having worsening abdominal pain with nausea Will repeat computed tomography scan of the abdomen and pelvis, with oral contrast without IV contrast 2. Acute exacerbation of COPD. Dr. Mitchell has been consulted 3. 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 Chronic atrial fibrillation on eliquis 5. History of pacemaker and AICD placement. Cardiology services have been consulted 6. Peptic ulcer disease 7. History of peripheral neuropathy 8. Generalized anxiety disorder 9. Essential hypertension DVT prophylaxis eliquis. GI prophylaxis Protonix Surgical, pulmonary and cardiology services consulted Flagyl and Levaquin for antibiotics. blood culture ordered PT OT ordered Social work consult for possible placement
--- NOTE | 2020-07-07 14:43 | CT ---
"EXAMINATION TYPE: CT abdomen pelvis wo con DATE OF EXAM: 07/07/2020 COMPARISON: 07/03/2020 INDICATION: increased nausea/abd pain, known hernia DLP: 720.1 mGycm, Automated exposure control for dose reduction was used. CONTRAST: 0 mL of Isovue 300. Study performed without Oral Contrast TECHNIQUE: Axial images were obtained from above the diaphragm to the pubic rami in the axial plane a t 5 mm thick sections. Reconstructed images are reviewed on the computer in the coronal plane. FINDINGS: Limited CT sections are obtained the lung bases. The lung bases are clear. CT ABDOMEN: Liver: Normal Spleen: Normal. Splenule is adjacent to the splenic hilum. Pancreas: Normal Adrenal glands: Mild thickening left adrenal gland measuring 1.1 cm. Gallbladder: Gallstones are present. Kidneys: No masses are evident. No hydronephrosis is present. There is a 2.1 cm cyst within the pos terior mid right kidney measuring 18 Hounsfield units. Punctate calcification is in the superior christoph ex left kidney. Delayed images were obtained through the kidneys, which remain unremarkable. Aorta: Vascular calcification is within the aorta. Inferior vena cava: Normal. CT PELVIS: Within the subcutaneous tissues lateral to the posterior lateral left hip is a 1.6 x 3.9 c m collection with some additional stranding around. This could be a small hematoma or edema. This is an interval finding. Small amount of free fluid is within the pelvis. Multiple dilated fluid-filled loops of small bowel are evident. This extends to the ileum. There is a Golden's type hernia in the right superior inguinal region. Loops of bowel leading into this area a re dilated and the efferent loops are compressed. Series 201 image 93 There multiple diverticuli with in the sigmoid colon likely related to diverticulosis. No acute diverticulitis is evident. Appendix: Not visualized. Urinary bladder: Normal. Genitourinary structures: Uterus and ovaries are not identified. Osseous structures: No suspicious lytic or sclerotic lesions. Some facet degenerative changes are wit hin the lumbar spine. IMPRESSIONS: 1. Partial or early complete small bowel obstruction at a Golden's type hernia in the anterior late ral right mid pelvis. 2. Diverticulosis without acute diverticulitis. 3. Right renal cyst 4. Stable mild thickening left adrenal gland A [place] level critical message alert has been initiated for Elham Kumar MD via the [employer] | Critical Results System on 07/07/2020 2:40 PM. This message alert has been sent to Elham Kumar MD via the preferences provided by the clinician for the receipt of Radiology Critical Findings. Messag e ID [id number]."
--- NOTE | 2020-07-07 16:02 | P.PN ---
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 hypoxic respiratory failure due to end-stage COPD Generalized anxiety disorder Chronic atrial fibrillation on anticoagulation Component of asthma and asthmatic bronchitis Peptic ulcer disease Peripheral neuropathy hypertension hypertensive cardiovascular disease 07/07/2020, patient seen eval reexamined, respiratory status remains stable, blood pressure slightly high, oxygen saturation is stable on supplemental oxygen, patient remains afebrile, and data saturation are 99% 2 L, patient underwent abdominal CAT scan which continue show partial or early small bowel obstruction [facility] surgery is following 07/06/2020, patient seen eval examined during the rounds comfortable on 2-1/2 L oxygen denies any chest pain does get short of breath on activity and exertion, intermittent cough is present nonproductive dry, abdominal pain is stable but however intermittently happens during activity and certain been over in position, patient is being followed by surgical services, This is a 85-year-old female with history of end-stage COPD and chronic asthmatic bronchitis on home oxygen and nebulizer treatment, patient is home oxygen dependent, oxygen need has however remained stable, patient came into the hospital with 3-4 day history of intermittent lower abdominal pain intermittent loose stool, has been feeling very weak, however denies any cough or sputum production she has the shortness of breath which is not much change Objective - Vital Signs Vital signs: Vital Signs Temp 98.2 F 07/07/20 07:00 Pulse 60 07/07/20 07:00 Resp 17 07/07/20 07:00 BP 162/93 07/07/20 07:00 Pulse Ox 99 07/07/20 07:00 Intake & Output 07/06/20 07/07/20 07/07/20 18:59 06:59 18:59 Other: Voiding Method Bedside Commode Bedside Commode Bedside Commode # Voids 3 3 # Bowel Movements 0 1 - Exam - Constitutional General appearance: average body habitus, cooperative, disheveled - EENT Eyes: PERRLA Ears: bilateral: normal - Neck Neck: normal ROM Carotids: bilateral: upstroke normal Thyroid: bilateral: normal size - Respiratory Respiratory: bilateral: CTA, diminished - Cardiovascular Rhythm: regular Heart sounds: normal: S1, S2 - Gastrointestinal General gastrointestinal: normal bowel sounds, soft - Neurologic Neurologic: CNII-XII intact - Musculoskeletal Musculoskeletal: gait normal, generalized weakness, strength equal bilaterally - Psychiatric Psychiatric: A&O x's 3, appropriate affect, intact judgment & insight - Labs CBC & Chem 7: 07/07/20 06:04 07/07/20 06:04 Labs: Abnormal Lab Results - Last 24 Hours (Table) 07/07/20 07/07/20 Range/Units 06:04 06:04 MCHC 30.8 L (31.0-37.0) g/dL BUN 38 H (7-17) mg/dL Creatinine 1.38 H (0.52-1.04) mg/dL Glucose 119 H (74-99) mg/dL Total Protein 5.2 L (6.3-8.2) g/dL Albumin 2.7 L (3.5-5.0) g/dL Microbiology - Last 24 Hours (Table) 07/03/20 16:26 Blood Culture - Preliminary Blood No Growth after 72 hours Assessment and Plan Assessment: Small bowel obstruction, Abdominal pain early peritonitis versus early inflammatory changes due to mesenteric edema suspicious of peritonitis, latest CT showed evidence of small bowel obstruction 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 Continue breathing treatments supplemental oxygen deep breathing exercises further evaluation pending plan of care as per clinical response of patient will follow surgical advice Time with Patient: Greater than 30
--- NOTE | 2020-07-07 17:50 | P.PN ---
Subjective Progress Note Date: 07/07/20 CHIEF COMPLAINT: Abdominal pain HISTORY OF PRESENT ILLNESS: The patient is a 85-year-old female admitted for abdominal pain. Workup included a hernia along the right lower quadrant. She was feeling better yesterday. Today she had severe 10 out of 10 nausea with severe abdominal cramping and gas pain. She is no longer passing any flatus. No bowel movements. Her son is at bedside. Her primary care provider ordered additional diagnostic studies. Gen. surgery consulted for further assessment for change in her condition. ROS: No fevers or chills. No new chest pain. Patient denies any chest pain or heart attacks since her last echo March 2020. PHYSICAL EXAM: VITAL SIGNS: Reviewed CONSTITUTIONAL: Well developed and in no acute distress. EYES: Conjuctivae without sclera icterus. Extraocular movements grossly intact. HEAD, EARS, NOSE, THROAT: Moist buccal mucosa. Head is atraumatic, normocephalic. Hears conversational speech. No nasal drainage. NECK: Supple. No thyroidomegaly. RESPIRATORY: Non-labored respirations and equal bilateral excursions. CARDIOVASCULAR: Palpable 2+ radial pulses. ABDOMEN: Localized tenderness right lower quadrant without rigidity MUSCULOSKELETAL: No gross deformity of the lower extremities noted. No clubbing. No cyanosis. SKIN: Good skin turgor. Well perfused. NEUROLOGIC: Cranial nerves II through XII grossly intact. No focal or lateral izing signs. PSYCH: Appropriate affect. Alert and oriented to person, place and time. CLINICAL LABS: White blood cell count normal, 8.7. Hemoglobin 12.3 STUDIES: CT of the abdomen and pelvis independent review by me demonstrating fat-containing right inguinal hernia. Multiple sigmoid diverticulosis identified. 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 This is my independent interpretation. REPORT: CT of the abdomen and pelvis report also confirms multiple gallstones. No evidence of free air. Small hiatal hernia also identified. STUDIES: Repeat CT of the abdomen and pelvis reviewed independently today demonstrates new small bowel obstruction with right lower quadrant abdominal wall hernia. New air-fluid levels. ECHO: Report from March 2020 demonstrates ejection fraction over 55-60% ASSESSMENT: 1. Abdominal pain 2. Abdominal wall hernia 3. Diverticulosis 4. Gallstones 5. Hiatal hernia 6. New small bowel obstruction PLAN: 1. Patient is on chronic anticoagulants including Eliquis. Will need immediate discontinuance of blood thinners. 2. She has new bowel obstruction. Nasogastric tube decompression described to relieve nausea including help with abdominal pain. 3. Will need surgical intervention as inpatient secondary to new bowel obstruction 4. Nothing by mouth status for bowel obstruction Objective - Vital Signs Vital signs: Vital Signs Temp 98.2 F 07/07/20 07:00 Pulse 60 07/07/20 07:00 Resp 17 07/07/20 07:00 BP 162/93 07/07/20 07:00 Pulse Ox 99 07/07/20 07:00 Intake & Output 07/06/20 07/07/20 07/07/20 18:59 06:59 18:59 Other: Voiding Method Bedside Commode Bedside Commode Bedside Commode # Voids 3 3 # Bowel Movements 0 1 - Labs CBC & Chem 7: 07/07/20 06:04 07/07/20 06:04 Labs: Abnormal Lab Results - Last 24 Hours (Table) 07/07/20 07/07/20 Range/Units 06:04 06:04 MCHC 30.8 L (31.0-37.0) g/dL BUN 38 H (7-17) mg/dL Creatinine 1.38 H (0.52-1.04) mg/dL Glucose 119 H (74-99) mg/dL Total Protein 5.2 L (6.3-8.2) g/dL Albumin 2.7 L (3.5-5.0) g/dL Microbiology - Last 24 Hours (Table) 07/03/20 16:26 Blood Culture - Preliminary Blood No Growth after 72 hours Assessment and Plan (1) Ventral hernia with obstruction Current Visit: Yes Status: Acute Code(s): K43.6 - OTHER AND UNSP VENTRAL HERNIA WITH OBSTRUCTION, W/O GANGRENE SNOMED Code(s): 412316031 (2) COPD (chronic obstructive pulmonary disease) Current Visit: Yes Status: Acute Code(s): J44.9 - CHRONIC OBSTRUCTIVE PULMONARY DISEASE, UNSPECIFIED SNOMED Code(s): 37393089 (3) Chronic anticoagulation Current Visit: Yes Status: Acute Code(s): Z79.01 - CUSTODIAL (CURRENT) USE OF ANTICOAGULANTS SNOMED Code(s): 309722030 (4) Congestive heart failure, diastolic, left, w/preserved LV function, NYHA class 4 Current Visit: Yes Status: Acute Code(s): I50.30 - UNSPECIFIED DIASTOLIC (CONGESTIVE) HEART FAILURE SNOMED Code(s): 553255229
[2020-07-07] MEDS ORDERED: BENZOCAINE SPRAY 1 CAN MUCOUS MEM PRN (18:38)
[2020-07-07] MEDS: MONTELUKAST 10 MG TAB PO SCH (18:47)
--- NOTE | 2020-07-07 19:02 | XR ---
EXAMINATION TYPE: XR chest 1V portable DATE OF EXAM: 07/07/2020 COMPARISON: 07/03/2020 INDICATION: Naso gastric tube placement TECHNIQUE: Single frontal view of the chest is obtained. FINDINGS: The heart size is normal. The pulmonary vasculature is normal. The lungs are clear. Pacemaker overlies left chest. Degenerative changes are at the bilateral should ers. Nasogastric tube is been placed and has its tip located within the left upper quadrant of the abdomen . IMPRESSION: 1. No acute pulmonary process. 2. Nasogastric tube tip within the left upper quadrant of the abdomen.
[2020-07-07] MEDS: LATANOPROST 0.005% OPHTH DROPS 2.5 ML BTL RIGHT EYE SCH (20:16)
[2020-07-08] MEDS: PANTOPRAZOLE 40 MG TABLET PO SCH (07:18)
[2020-07-08] MEDS: ASCORBIC ACID 500 MG TAB PO SCH (07:18)
[2020-07-08] MEDS: POTASSIUM CHLORIDE ER 10 MEQ TAB.ER.PRT PO SCH ×2 (07:19→21:12)
[2020-07-08] MEDS: CHOLECALCIFEROL 1,000 UNIT TAB PO SCH (07:19)
[2020-07-08] MEDS: GABAPENTIN 300 MG CAP PO SCH ×2 (07:19→21:12)
[2020-07-08] MEDS: BUMETANIDE 1 MG TAB PO SCH ×2 (07:19→16:42)
[2020-07-08] MEDS: METOPROLOL TARTRATE 50 MG TAB PO SCH ×2 (08:53→21:12)
[2020-07-08] MEDS: IPRATROPIUM-ALBUTEROL 3 ML NEB INHALATION PRN (10:47)
--- NOTE | 2020-07-08 11:10 | P.PN ---
Subjective Progress Note Date: 07/08/20 This is an 85-year-old female patient who presented to the ER with abdominal pain that had been occurring intermittently over the past few days patient reports the pain was sharp in nature. Patient reports she had decreased appetite. Additional medical history includes A. fib in which she is on eliquis , asthma, heart failure, COPD, hypertension, thyroid disorder, pacemaker, AICD and ex-smoker. Patient also reports she's had some wheezing. Chest x-ray completed showing underlying emphysema. Interstitial changes again noted within the lungs progression of thoracic compression fracture likely T6. Abdominal x- ray completed showing suspect there may be a small hernia in the right lower quadrant some local inflammation changes present there may be herniation of fat with stranding ablation no definitive bowel loop contained at this level. Some mesenteric edema or inflammatory change correlate for possible peritonitis small right pleural effusion cholelithiasis hepatic steatosis diverticulitis. Correlate to exclude colitis. Patient started on Flagyl and Levaquin and surgical consult placed. 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 Cardiology services also consulted due to cardiac history. At this time patient is resting comfortably in bed. Patient reports some abdominal discomfort and tenderness to palpation. Patient denies any chest pain. Does report some shortness of breath. Patient denies nausea vomiting or diarrhea. Patient denies any urinary burning or frequency On 07/05/2020 patient was seen and examined on the medical floor she is alert and oriented 3 in no apparent distress pain in the right lower quadrant is improving gradually she is tolerating diet well, she has not had a bowel movement in the last 3-4 days, she is complaining of generalized weakness otherwise she denies any complaints there is no fever or chills no headache or dizziness no chest pain no shortness of breath no cough no nausea or vomiting no diarrhea no blood in the stools no burning with urination no frequency or urgency no hematuria On 07/06/2020 patient is alert and oriented 3. Patient reports abdominal pain has improved still some tenderness to palpation and movement. Patient has been tolerating diet and appetite has increased. Surgical services has no plans for surgical intervention at this time. Dr. Brown has been consulted for discharge planning. Did discuss case with case management at this time it is recommended for rehab upon discharge. Patient denies chest pain or shortness breath. Patient denies nausea vomiting or diarrhea. Patient denies any urinary burning or frequency On 07/07/2020 patient was seen and examined on the medical floor she is alert and oriented 3 of more abdominal pain today was nausea and 1 episode of vomiting this morning otherwise she denies any complaints there is no fever or chills no headache or dizziness no chest pain no shortness of breath no cough, no diarrhea no blood in the stools no burning with urination no frequency or urgency and no hematuria. At this time will proceed with repeating computed tomography scan of the abdomen and pelvis will use oral contrast, but avoid IV contrast at this time due to elevated BUN and creatinine, will notify surgery of worsening abdominal symptoms. On 07/08/2020 patient is alert and oriented 3. CT of abdomen and pelvis completed showing partial or early complete small bowel obstruction. Per surgical service is planning surgical intervention tomorrow due to eliquis. Patient remains with NG tube LIS and nothing by mouth. Patient is having some abdominal pain. Patient denies any chest pain or shortness breath. Objective - Vital Signs Vital signs: Vital Signs Temp 98.1 F 07/08/20 00:45 Pulse 64 07/08/20 00:45 Resp 24 07/08/20 00:45 BP 163/70 07/08/20 00:45 Pulse Ox 92 L 07/08/20 00:45 Intake & Output 07/07/20 07/08/20 07/08/20 19:59 06:59 18:59 Intake Total Balance Intake: Oral Other: Voiding Method # Voids - Exam In general patient is alert and oriented 3 in no distress Head normocephalic and atraumatic Neck supple no JVD no goiter Lungs clear to auscultation bilaterally no wheezing or crackles Heart regular rate and rhythm S1-S2, no rub or gallop Abdomen is soft tenderness to palpation to mid abdomen nondistended positive bowel sounds no hepatosplenomegaly Extremities no edema no cyanosis or clubbing Neuro no gross focal neurological deficits - Labs CBC & Chem 7: 07/07/20 06:04 07/07/20 06:04 Labs: Abnormal Lab Results - Last 24 Hours (Table) 07/07/20 Range/Units 06:04 BUN 38 H (7-17) mg/dL Creatinine 1.38 H (0.52-1.04) mg/dL Glucose 119 H (74-99) mg/dL Total Protein 5.2 L (6.3-8.2) g/dL Albumin 2.7 L (3.5-5.0) g/dL Microbiology - Last 24 Hours (Table) 07/03/20 16:26 Blood Culture - Preliminary Blood No Growth after 96 hours Assessment and Plan Assessment: 1. Acute abdominal pain secondary to peritonitis versus early bleaching changes due to mesenteric edema suspicious of peritonitis. CT of abdomen completed please see above results. Surgical services have been consulted. Patient started on Levaquin and Flagyl. Blood Culture negative. Antibiotics have been DC'd. Diet has been tolerated. No surgical intervention at this time 2. Acute exacerbation of COPD. Dr. Mitchell has been consulted 3. 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 Chronic atrial fibrillation on eliquis 5. History of pacemaker and AICD placement. Per cardiology patient Gilmore shortness of breath does appear at her baseline no further workup per cardiology patient to follow-up with cardiac he services outpatient 6. Peptic ulcer disease 7. History of peripheral neuropathy 8. Generalized anxiety disorder 9. Essential hypertension 10. Acute kidney injury. Creatinine 1.6 and bun 42. We'll continue to monitor. Creatinine improving to 1.38 bun 38 11. New small bowel obstruction. Per surgical services plan for surgical intervention 07/09/2020 Coumadin currently on hold. NGtube to LIS. DVT prophylaxis SCDs due to surgical intervention eliquis currently on hold. GI prophylaxis Protonix Surgical, pulmonary and cardiology services consulted PT OT ordered Social work consult for possible placement Plan: 1. Acute abdominal pain secondary to peritonitis versus early bleaching changes due to mesenteric edema suspicious of peritonitis. CT of abdomen completed please see above results. Surgical services have been consulted. Patient started on Levaquin and Flagyl. Blood Culture ordered, at this time patient is having worsening abdominal pain with nausea Will repeat computed tomography scan of the abdomen and pelvis, with oral contrast without IV contrast 2. Acute exacerbation of COPD. Dr. Mitchell has been consulted 3. 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 Chronic atrial fibrillation on eliquis 5. History of pacemaker and AICD placement. Cardiology services have been consulted 6. Peptic ulcer disease 7. History of peripheral neuropathy 8. Generalized anxiety disorder 9. Essential hypertension DVT prophylaxis eliquis. GI prophylaxis Protonix Surgical, pulmonary and cardiology services consulted Flagyl and Levaquin for antibiotics. blood culture ordered PT OT ordered Social work consult for possible placement
[2020-07-08 13:40] LABS: Basophils # (A) 0.1 k/uL (0-0.2); Basophils % (A) 1 %; Eosinophils # (A) 0.2 k/uL (0-0.7); Eosinophils % (A) 2 %; HCT 42.3 % (34.0-46.0); HGB 13.1 gm/dL (11.4-16.0); Hypochromasia Moderate; Lymphocytes # (A) 1.1 k/uL (1.0-4.8); Lymphocytes % (A) 10 %; MCH 30.5 pg (25.0-35.0); MCHC 30.9 g/dL (31.0-37.0); MCV 98.5 fL (80.0-100.0); Mean Platelet Volume 8.2; Monocytes # (A) 0.5 k/uL (0-1.0); Monocytes % (A) 4 %; Neutrophils # (A) 9.2 k/uL (1.3-7.7); Neutrophils % (A) 82 %; Platelet Count 294 k/uL (150-450); RBC 4.29 m/uL (3.80-5.40); RDW 13.7 % (11.5-15.5); WBC 11.1 k/uL (3.8-10.6)
--- NOTE | 2020-07-08 13:42 | XR ---
EXAMINATION TYPE: XR abdomen 2V DATE OF EXAM: 07/08/2020 COMPARISON: None HISTORY: Small bowel obstruction TECHNIQUE: Upright abdomen FINDINGS: There is some nonspecific small bowel loops containing air within the left midabdomen. Dila deshaun loops of bowel or suspicious air-fluid levels are not identified. Nasogastric tube tip is within the left upper quadrant of the abdomen. This could be advanced slightly for better seating. Psoas margins are normal. No suspicious calcifications are evident. No mass effect is evident. IMPRESSION: 1. Nonspecific abdomen. Nondilated air-filled small bowel loops are in left upper quadrant. 2. Nasogastric tube tip within the proximal left upper quadrant of the abdomen, this could be advance d slightly.
[2020-07-08 13:48] LABS: African American GFR (CKD) 55 (>60 ml/min/1.73 sqM); Anion Gap 6 mmol/L; Blood Urea Nitrogen 29 mg/dL (7-17); Carbon Dioxide 31 mmol/L (22-30); Chloride 105 mmol/L (98-107); Glucose 112 mg/dL (74-99); Non-African American GFR(CKD) 48 (>60 ml/min/1.73 sqM); Potassium 3.6 mmol/L (3.5-5.1); Sodium 142 mmol/L (137-145)
[2020-07-08 13:54] LABS: INR 1.3 (<1.2); Prothrombin Time 12.7 sec (9.0-12.0)
--- NOTE | 2020-07-08 15:15 | P.PN ---
Subjective Progress Note Date: 07/08/20 CHIEF COMPLAINT: Abdominal pain HISTORY OF PRESENT ILLNESS: The patient is a 85-year-old female admitted for abdominal pain. Her initial workup demonstrated a right lower quadrant ventral abdominal wall hernia. She was prepared for management outpatient however yesterday she had acute change of her clinical presentation with severe abdominal pain 10 out of 10 now showing bowel obstruction. Nasogastric tube was placed. She is on a blood thinner with last dose yesterday. She reports decreased abdominal pain today. No nausea or vomiting. At least 600-ml out of NG tube. ROS: No fevers or chills. No new chest pain. No flatus. No bowel movement today. PHYSICAL EXAM: VITAL SIGNS: Reviewed CONSTITUTIONAL: Well developed and in no acute distress. EYES: Conjuctivae without sclera icterus. Extraocular movements grossly intact. HEAD, EARS, NOSE, THROAT: Moist buccal mucosa. Head is atraumatic, normocephalic. Hears conversational speech. NGT present. NECK: Supple. No thyroidomegaly. RESPIRATORY: Non-labored respirations and equal bilateral excursions. CARDIOVASCULAR: Palpable 2+ radial pulses. ABDOMEN: Right lower qaudrant tenderness improved. No peritonitis. MUSCULOSKELETAL: No gross deformity of the lower extremities noted. No clubbing. No cyanosis. SKIN: Good skin turgor. Well perfused. NEUROLOGIC: Cranial nerves II through XII grossly intact. No focal or latera lizing signs. PSYCH: Appropriate affect. Alert and oriented to person, place and time. CLINICAL LABS: No new labs today. STUDIES: AXR reviewed showing no air fluid levels. No gas in rectum. Non- specific bowel gas pattern. ASSESSMENT: 1. Abdominal pain 2. Abdominal wall hernia 3. Diverticulosis 4. Gallstones 5. Hiatal hernia 6. New small bowel obstruction PLAN: 1. Recommend repair of ventral wall hernia for small bowel obstruction. Per patient request and family are requesting robotic/laparoscopic approach. 2. Will need follow of her hemoglobin as well as PT/INR. Patient did have elevated creatinine for which BMP also ordered 3. CBC also ordered for anemia 4. Continue NGTube and NPO status. 5. Patient elevated risk for surgery with bowel obstruction and pre-existing COPD. Objective - Vital Signs Vital signs: Vital Signs Temp 98.4 F 07/08/20 07:00 Pulse 68 07/08/20 10:59 Resp 17 07/08/20 07:00 BP 176/77 07/08/20 09:46 Pulse Ox 98 07/08/20 07:00 Intake & Output 07/07/20 07/08/20 07/08/20 19:59 06:59 18:59 Intake Total Balance Intake: Oral Other: Voiding Method Bedside Commode # Voids - Labs CBC & Chem 7: 07/08/20 13:15 07/08/20 13:15 Labs: Microbiology - Last 24 Hours (Table) 07/03/20 16:26 Blood Culture - Preliminary Blood No Growth after 96 hours Assessment and Plan (1) Ventral hernia with obstruction Current Visit: Yes Status: Acute Code(s): K43.6 - OTHER AND UNSP VENTRAL HERNIA WITH OBSTRUCTION, W/O GANGRENE SNOMED Code(s): 977120700 (2) COPD (chronic obstructive pulmonary disease) Current Visit: Yes Status: Acute Code(s): J44.9 - CHRONIC OBSTRUCTIVE PULMONARY DISEASE, UNSPECIFIED SNOMED Code(s): 05366976 (3) Chronic anticoagulation Current Visit: Yes Status: Acute Code(s): Z79.01 - JAIL (CURRENT) USE OF ANTICOAGULANTS SNOMED Code(s): 393810916 (4) Congestive heart failure, diastolic, left, w/preserved LV function, NYHA class 4 Current Visit: Yes Status: Acute Code(s): I50.30 - UNSPECIFIED DIASTOLIC (CONGESTIVE) HEART FAILURE SNOMED Code(s): 137957882
[2020-07-08] MEDS: HYDROcodone/APAP 10-325MG 1 EACH TAB PO PRN (17:20)
[2020-07-08] MEDS: MONTELUKAST 10 MG TAB PO SCH (21:09)
[2020-07-08] MEDS: LATANOPROST 0.005% OPHTH DROPS 2.5 ML BTL RIGHT EYE SCH (21:13)
[2020-07-09] MEDS: HYDROcodone/APAP 10-325MG 1 EACH TAB PO PRN ×2 (01:37→20:49)
[2020-07-09 07:28] LABS: Basophils % (A) 0 %; Eosinophils # (A) 0.4 k/uL (0-0.7); Eosinophils % (A) 4 %; HGB 12.6 gm/dL (11.4-16.0); Hypochromasia Marked; Lymphocytes # (A) 1.4 k/uL (1.0-4.8); Lymphocytes % (A) 14 %; MCH 30.4 pg (25.0-35.0); MCHC 30.1 g/dL (31.0-37.0); MCV 101.2 fL (80.0-100.0); Macrocytosis Slight; Mean Platelet Volume 8.2; Monocytes # (A) 0.6 k/uL (0-1.0); Monocytes % (A) 6 %; Neutrophils # (A) 7.7 k/uL (1.3-7.7); Neutrophils % (A) 76 %; Platelet Count 286 k/uL (150-450); RBC 4.15 m/uL (3.80-5.40); RDW 13.6 % (11.5-15.5); WBC 10.2 k/uL (3.8-10.6)
[2020-07-09] MEDS: IPRATROPIUM-ALBUTEROL 3 ML NEB INHALATION PRN ×2 (07:40→21:06)
[2020-07-09] MEDS: POTASSIUM CHLORIDE ER 10 MEQ TAB.ER.PRT PO SCH ×2 (08:01→20:47)
[2020-07-09] MEDS: PANTOPRAZOLE 40 MG TABLET PO SCH (08:01)
[2020-07-09] MEDS: METOPROLOL TARTRATE 50 MG TAB PO SCH ×2 (08:02→20:47)
[2020-07-09] MEDS: BUMETANIDE 1 MG TAB PO SCH ×2 (08:02→17:27)
[2020-07-09] MEDS: CHOLECALCIFEROL 1,000 UNIT TAB PO SCH (08:02)
[2020-07-09] MEDS: GABAPENTIN 300 MG CAP PO SCH ×2 (08:02→20:47)
[2020-07-09] MEDS: ASCORBIC ACID 500 MG TAB PO SCH (08:03)
[2020-07-09] MEDS ORDERED: LEVOFLOXACIN 500MG-D5W PMX 500 MG in DEXTROSE/WATER 1 100ML.BAG IVPB SCH (09:00)
[2020-07-09 11:23] LABS: African American GFR (CKD) 59.9 (60.0-200.0); Albumin/Globulin Ratio 1.5 (1.60-3.17); Anion Gap 9.7 mmol/L (4.00-12.00); Calcium 8.9 mg/dL (8.7-10.3); Carbon Dioxide 30.3 mmol/L (21.6-31.8); Non-African American GFR(CKD) 51.7 (60.0-200.0); Potassium 3.8 mmol/L (3.5-5.5); Total Bilirubin 0.8 mg/dL (0.2-1.2)
[2020-07-09] MEDS ORDERED: SODIUM CHLORIDE 0.9% 1,000 ML IV ONE ×2 (12:26)
[2020-07-09] MEDS ORDERED: ONDANSETRON 4 MG/2 ML VIAL IVP ONE (12:31)
[2020-07-09] MEDS ORDERED: fentaNYL (PF) 50 MCG/ML 2 ML AMP IVP ONE (12:40)
--- NOTE | 2020-07-09 12:53 | P.ANPRN ---
Procedure Note - Anesthesia - Nerve Block Performed Bilateral Transversus Abdominis Single Time Out Performed: Yes Date of Procedure: 07/09/20 Procedure Start Time: 12:39 Procedure Stop Time: 12:47 Location of Patient: PreOp Indication: Acute Post-Operative Pain, Requested by Surgeon Specifically requested for management of pain by DrEmmanuel: Salina Coto Sedation Type: Sedate with meaningful contact maintained Preparation: Sterile Prep Position: Supine Catheter: None Needle Types: Pajunk Needle Gauge: 21 Ultrasound used to visualize needle placement: Yes Ultrasound used to observe medication spread: Yes Injectate: 0.5% Ropivacaine (see comment for volume) (20 ml plus decadron 4 mg) Blood Aspirated: Yes Pain Paresthesia on Injection Noted: Yes Resistance on Injection: Normal Image Stored and Saved: Yes Events: Uneventful and Well Tolerated
[2020-07-09] MEDS ORDERED: DEXAMETHASONE SOD PHOSPHATE 4 MG/ML 1 ML VIAL ONE (14:26)
[2020-07-09] MEDS ORDERED: ONDANSETRON 4 MG/2 ML VIAL ONE (14:26)
[2020-07-09] MEDS ORDERED: LIDOCAINE 1% INJ 10MG/ML (20 ML MDV) ONE (14:26)
[2020-07-09] MEDS ORDERED: fentaNYL (PF) 50 MCG/ML 2 ML AMP ONE (14:26)
[2020-07-09] MEDS ORDERED: SUCCINYLCHOLINE CHLORIDE 100 MG/5 ML SYR IV ONE (14:26)
[2020-07-09] MEDS ORDERED: GLYCOPYRROLATE 0.2 MG/ML 2 ML VIAL ONE (14:26)
[2020-07-09] MEDS ORDERED: MIDAZOLAM 2 MG/2 ML VIAL ONE (14:26)
[2020-07-09] MEDS ORDERED: PROPOFOL 10 MG/ML 20 ML VIAL IV ONE (14:26)
[2020-07-09] MEDS ORDERED: ROCURONIUM 10 MG/ML (10 ML VIAL) IV ONE (14:26)
[2020-07-09] MEDS ORDERED: DEXAMETHASONE SOD PHOSPHATE 10 MG/ML 1 ML VIAL ONE (14:26)
[2020-07-09] MEDS ORDERED: ROPIVACAINE 5 MG/ML 30 ML VIAL ONE (14:26)
[2020-07-09] MEDS ORDERED: NEOSTIGMINE 1 MG/ML 10 ML VIAL ONE (14:26)
[2020-07-09] MEDS: CLINDAMYCIN 600 MG in DEXTROSE 5% IN WATER 50 ML IVPB STA ×4 (14:34→15:07)
[2020-07-09] MEDS ORDERED: LIDOCAINE 1%-EPI 1:100,000 20 ML VIAL SQ ONE (15:06)
[2020-07-09] MEDS ORDERED: LACTATED RINGERS 1,000 ML IV ONE (16:27)
--- NOTE | 2020-07-09 16:37 | P.PN ---
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 Alford for hernia repair, respiratory standpoint remains stable 07/07/2020, patient seen eval reexamined, respiratory status remains stable, blood pressure slightly high, oxygen saturation is stable on supplemental oxygen, patient remains afebrile, and data saturation are 99% 2 L, patient underwent abdominal CAT scan which continue show partial or early small bowel obstruction [facility] general surgery is following 07/06/2020, patient seen eval examined during the rounds comfortable on 2-1/2 L oxygen denies any chest pain does get short of breath on activity and exertion, intermittent cough is present nonproductive dry, abdominal pain is stable but however intermittently happens during activity and certain been over in position, patient is being followed by surgical services, This is a 85-year-old female with history of end-stage COPD and chronic asthmatic bronchitis on home oxygen and nebulizer treatment, patient is home ox ygen dependent, oxygen need has however remained stable, patient came into the hospital with 3-4 day history of intermittent lower abdominal pain intermittent loose stool, has been feeling very weak, however denies any cough or sputum production she has the shortness of breath which is not much change Objective - Vital Signs Vital signs: Vital Signs Temp 97.8 F 07/09/20 12:30 Pulse 64 07/09/20 12:30 Resp 20 07/09/20 12:30 BP 175/77 07/09/20 12:30 Pulse Ox 93 L 07/09/20 12:30 Intake & Output 07/08/20 07/09/20 07/09/20 18:59 06:59 18:59 Intake Total 0 0 804 Output Total 200 5 Balance -200 0 799 Intake: IV 804 Oral 0 0 Output: Gastric Drainage 200 Estimated Blood Loss 5 Other: Voiding Method Bedside Commode Bedside Commode Bedside Commode # Voids 2 2 # Bowel Movements 1 - Exam - Constitutional General appearance: average body habitus, cooperative, disheveled - EENT Eyes: PERRLA Ears: bilateral: normal - Neck Neck: normal ROM Carotids: bilateral: upstroke normal Thyroid: bilateral: normal size - Respiratory Respiratory: bilateral: CTA, diminished - Cardiovascular Rhythm: regular Heart sounds: normal: S1, S2 - Gastrointestinal General gastrointestinal: normal bowel sounds, soft - Neurologic Neurologic: CNII-XII intact - Musculoskeletal Musculoskeletal: gait normal, generalized weakness, strength equal bilaterally - Psychiatric Psychiatric: A&O x's 3, appropriate affect, intact judgment & insight - Labs CBC & Chem 7: 07/09/20 06:34 07/09/20 06:34 Labs: Abnormal Lab Results - Last 24 Hours (Table) 07/09/20 07/09/20 Range/Units 06:34 06:34 MCV 101.2 H (80.0-100.0) fL MCHC 30.1 L (31.0-37.0) g/dL Sodium 148 H (135-145) mmol/L Est GFR (CKD-EPI)AfAm 59.9 L (60.0-200.0) Est GFR (CKD-EPI)NonAf 51.7 L (60.0-200.0) BUN/Creatinine Ratio 25.00 H (12.00-20.00) Ratio Total Protein 5.0 L (6.2-8.2) g/dL Albumin 3.00 L (3.80-4.90) g/dL Albumin/Globulin Ratio 1.50 L (1.60-3.17) g/dL Microbiology - Last 24 Hours (Table) 07/03/20 16:26 Blood Culture - Preliminary Blood No Growth after 120 hours Assessment and Plan Assessment: Small bowel obstruction, with small bowel obstruction and ventral wall hernia Abdominal pain early peritonitis versus early inflammatory changes due to mesenteric edema suspicious of peritonitis, latest CT showed evidence of small bowel obstruction 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 Continue breathing treatments supplemental oxygen deep breathing exercises further evaluation pending plan of care as per clinical response of patient will follow surgical advice, proceed with surgical repair as planned Time with Patient: Greater than 30
[2020-07-09] MEDS ORDERED: HYDROmorphone 0.5 MG/0.5 ML SYRINGE IVP ONE (17:09)
[2020-07-09] MEDS ORDERED: ACETAMINOPHEN TAB 325 MG TAB PO PRN (17:27)
--- NOTE | 2020-07-09 17:32 | P.OP ---
Date of Procedure: 07/09/20 Description of Procedure: SURGEON: ADRIANA GONZALEZ MD Preoperative Diagnosis: 1. Small bowel obstruction due to incarcerated ventral hernia 2. Chronic obstructive pulmonary disease 3. Atrial fibrillation 4. Gastroesophageal reflux disease 5. Glaucoma 6. Chronic pain syndrome 7. Congestive heart failure 8. Chronic anticoagulant use 9. Congestive heart failure 10. Multiple drug ALLERGIES 11. Hypothyroidism 12. History of in situ cardiac defibrillator Postoperative Diagnosis: 1. Small bowel obstruction with infarction due to right lower quadrant ventral hernia 2. Chronic obstructive pulmonary disease 3. Atrial fibrillation 4. Gastroesophageal reflux disease 5. Glaucoma 6. Chronic pain syndrome 7. Congestive heart failure 8. Chronic anticoagulant use 9. Congestive heart failure 10. Multiple drug ALLERGIES 11. Hypothyroidism 12. History of in situ cardiac defibrillator Procedure(s) Performed: 1. Robotic-assisted daVinci Xi laparoscopic repair of strangulated right lower quadrant ventral hernia with small bowel resection and primary anastomosis Procedure(s) Performed: Anesthesia: GETA, regional, local Estimated Blood Loss (ml): 5 Pathology: other (Small bowel, hernia sac, anastomosis) Condition: stable Disposition: floor Operative Findings: 1. Right lower quadrant adhesion small bowel to abdominal wall 2. Small bowel resection 5 cm of distal jejunal for small bowel infarction 3. Right lower quadrant ventral hernia defect 1 cm closed primarily using #1 VLOC 4. Mesh repair avoided due to strangulated small bowel 5. No moderate small bowel dilatation identified INDICATIONS: The patient is an 85-year-old male who presents with small bowel obstruction resolved with conservative management. Benefits and risks, including infection, open surgery, and bleeding for additional surgery was discussed at length. Informed consent was obtained. All questions of the patient and family were answered. DESCRIPTION: The patient was transferred to the operating room and placed in supine position. The abdomen was then prepped and draped in standard sterile fashion as Ioban was placed along the abdomen to minimize any contamination of skin floor. After a timeout protocol was performed, attention was then brought to the left upper quadrant whereby a 0 degree 5 mm laparoscopic trocar entry was performed. The abdominal cavity was entered and insufflated to 12 mmHg pressure, which was tolerated well. Diagnostic laparoscopy demonstrated no injury to bowel, viscera or mesentery. Next a robotic 8-mm trocar was placed along the left lower quadrant, 10-cm lateral to the midline. A 12 mm port was placed along the left upper quadrant and another 8-mm port left lateral abdominal wall. Ports were placed 8 cm apart from each other including 15-20 cm away from the target anatomy of the right pelvis. The robotic da Benito XI system was primed and docked from the right side of the patient. Using atraumatic graspers and vessel sealer, the robotic system was docked and primed as described. Instruments were interchanged by the dental ceramist assistant including graspers, robotic stapler and vessel sealer. At the right lower quadrant, peritoneal adhesions were identified and taken down from the abdominal wall using Bovie cautery. A right lower quadrant ventral hernia defect 1 cm was found with small bowel infarction. The infarcted small bowel was prepared for resection at the distal jejunum. A window was created along the mesentery. The small bowel was resected using blue 45 mm robotic staple loads. The staple line was hemostatic. Enterotomies were made along the antimesenteric border for creation of akash-lumen. Another 45 mm blue load was fired. The enterotomy was oversewn using 3-0 silk. The enterotomy was closed using 45 mm blue staple load. Hemostasis was checked. The ventral hernia defect was oversewn using #1 VLOC non-absorbable. 1 all ThursdayThe robot was undocked. I re-scrubbed into the case. The specimen was removed from the abdominal cavity with an Endo Catch bag through the 12 mm trocar at the left upper quadrant. The port site was closed with 0 Vicryl and Sean Quiros. All instruments and pneumoperitoneum were evacuated from the abdominal cavity. Local anesthetic was infiltrated to all wounds for postop analgesia. All incisions were also cleansed with diluted hydrogen peroxide. The incisions were closed with 4-0 Monocryl. Exofin glue was applied to the rest of the skin incisions. The patient had tolerated the procedure well. The patient was extubated successfully. The patient was transferred to the postanesthesia care unit in stable condition.
--- NOTE | 2020-07-09 18:00 | P.PN ---
Subjective Progress Note Date: 07/09/20 This is an 85-year-old female patient who presented to the ER with abdominal pain that had been occurring intermittently over the past few days patient reports the pain was sharp in nature. Patient reports she had decreased appetite. Additional medical history includes A. fib in which she is on eliquis , asthma, heart failure, COPD, hypertension, thyroid disorder, pacemaker, AICD and ex-smoker. Patient also reports she's had some wheezing. Chest x-ray completed showing underlying emphysema. Interstitial changes again noted within the lungs progression of thoracic compression fracture likely T6. Abdominal x- ray completed showing suspect there may be a small hernia in the right lower quadrant some local inflammation changes present there may be herniation of fat with stranding ablation no definitive bowel loop contained at this level. Some mesenteric edema or inflammatory change correlate for possible peritonitis small right pleural effusion cholelithiasis hepatic steatosis diverticulitis. Correlate to exclude colitis. Patient started on Flagyl and Levaquin and surgical consult placed. Dr. Mitchell consulted for pulmonary due to patient's established compliance review officer. Cardiology services also consulted due to cardiac history. At this time patient is resting comfortably in bed. Patient reports some abdominal discomfort and tenderness to palpation. Patient denies any chest pain. Does report some shortness of breath. Patient denies nausea vomiting or diarrhea. Patient denies any urinary burning or frequency On 07/05/2020 patient was seen and examined on the medical floor she is alert and oriented 3 in no apparent distress pain in the right lower quadrant is improving gradually she is tolerating diet well, she has not had a bowel movement in the last 3-4 days, she is complaining of generalized weakness otherwise she denies any complaints there is no fever or chills no headache or dizziness no chest pain no shortness of breath no cough no nausea or vomiting no diarrhea no blood in the stools no burning with urination no frequency or urgency no hematuria On 07/06/2020 patient is alert and oriented 3. Patient reports abdominal pain has improved still some tenderness to palpation and movement. Patient has been tolerating diet and appetite has increased. Surgical services has no plans for surgical intervention at this time. Dr. Brown has been consulted for discharge planning. Did discuss case with case management at this time it is recommended for rehab upon discharge. Patient denies chest pain or shortness breath. Patient denies nausea vomiting or diarrhea. Patient denies any urinary burning or frequency On 07/07/2020 patient was seen and examined on the medical floor she is alert and oriented 3 of more abdominal pain today was nausea and 1 episode of vomiting this morning otherwise she denies any complaints there is no fever or chills no headache or dizziness no chest pain no shortness of breath no cough, no diarrhea no blood in the stools no burning with urination no frequency or urgency and no hematuria. At this time will proceed with repeating computed tomography scan of the abdomen and pelvis will use oral contrast, but avoid IV contrast at this time due to elevated BUN and creatinine, will notify surgery of worsening abdominal symptoms. On 07/08/2020 patient is alert and oriented 3. CT of abdomen and pelvis completed showing partial or early complete small bowel obstruction. Per surgical service is planning surgical intervention tomorrow due to eliquis. Patient remains with NG tube LIS and nothing by mouth. Patient is having some abdominal pain. Patient denies any chest pain or shortness breath. On 07/09/2020 patient was seen and examined on the medical floor she is alert and oriented 3 in no apparent distress she is still complaining of right lower quadrant abdominal pain she is scheduled today for surgery in regard to hernia and small bowel obstruction, otherwise patient denies any complaints there is no fever or chills no headache or dizziness no chest pain no shortness of breath no cough no nausea or vomiting no diarrhea and no urinary symptoms Objective - Vital Signs Vital signs: Vital Signs Temp 97.8 F 07/09/20 12:30 Pulse 64 07/09/20 12:30 Resp 20 07/09/20 12:30 BP 175/77 07/09/20 12:30 Pulse Ox 93 L 07/09/20 12:30 Intake & Output 07/08/20 07/09/20 07/09/20 18:59 06:59 18:59 Intake Total 0 0 804 Output Total 200 5 Balance -200 0 799 Intake: IV 804 Oral 0 0 Output: Gastric Drainage 200 Estimated Blood Loss 5 Other: Voiding Method Bedside Commode Bedside Commode Bedside Commode # Voids 2 2 # Bowel Movements 1 - Exam In general patient is alert and oriented 3 in no distress Head normocephalic and atraumatic Neck supple no JVD no goiter Lungs clear to auscultation bilaterally no wheezing or crackles Heart regular rate and rhythm S1-S2, no rub or gallop Abdomen is soft tenderness to palpation to mid abdomen nondistended positive bowel sounds no hepatosplenomegaly Extremities no edema no cyanosis or clubbing Neuro no gross focal neurological deficits - Labs CBC & Chem 7: 07/09/20 06:34 07/09/20 06:34 Labs: Abnormal Lab Results - Last 24 Hours (Table) 07/09/20 07/09/20 Range/Units 06:34 06:34 MCV 101.2 H (80.0-100.0) fL MCHC 30.1 L (31.0-37.0) g/dL Sodium 148 H (135-145) mmol/L Est GFR (CKD-EPI)AfAm 59.9 L (60.0-200.0) Est GFR (CKD-EPI)NonAf 51.7 L (60.0-200.0) BUN/Creatinine Ratio 25.00 H (12.00-20.00) Ratio Total Protein 5.0 L (6.2-8.2) g/dL Albumin 3.00 L (3.80-4.90) g/dL Albumin/Globulin Ratio 1.50 L (1.60-3.17) g/dL Microbiology - Last 24 Hours (Table) 07/03/20 16:26 Blood Culture - Preliminary Blood No Growth after 120 hours Assessment and Plan Plan: 1. Acute abdominal pain secondary to peritonitis versus early bleaching changes due to mesenteric edema suspicious of peritonitis. CT of abdomen completed please see above results. Surgical services have been consulted. Patient started on Levaquin and Flagyl. Blood Culture ordered, at this time patient is having worsening abdominal pain with nausea Will repeat computed tomography scan of the abdomen and pelvis, with oral contrast without IV contrast 2. Acute exacerbation of COPD. Dr. Mitchell has been consulted 3. 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 Chronic atrial fibrillation on eliquis 5. History of pacemaker and AICD placement. Cardiology services have been consulted 6. Peptic ulcer disease 7. History of peripheral neuropathy 8. Generalized anxiety disorder 9. Essential hypertension DVT prophylaxis eliquis. GI prophylaxis Protonix Surgical, pulmonary and cardiology services consulted Flagyl and Levaquin for antibiotics. blood culture ordered PT OT ordered Social work consult for possible placement
[2020-07-09] MEDS: LATANOPROST 0.005% OPHTH DROPS 2.5 ML BTL RIGHT EYE SCH (20:47)
[2020-07-09] MEDS: MONTELUKAST 10 MG TAB PO SCH (20:47)
[2020-07-09] MEDS: HEPARIN SODIUM,PORCINE 5,000 UNIT/ML 1 ML VIAL SQ SCH (20:47)
[2020-07-10] MEDS: ACETAMINOPHEN TAB 325 MG TAB PO SCH ×4 (06:14→16:57)
[2020-07-10 06:51] LABS: Basophils % (A) 0 %; Eosinophils % (A) 0 %; HCT 38.5 % (34.0-46.0); HGB 11.7 gm/dL (11.4-16.0); Hypochromasia Marked; Lymphocytes # (A) 0.6 k/uL (1.0-4.8); Lymphocytes % (A) 10 %; MCH 30.1 pg (25.0-35.0); MCHC 30.3 g/dL (31.0-37.0); MCV 99.2 fL (80.0-100.0); Mean Platelet Volume 7.7; Monocytes # (A) 0.2 k/uL (0-1.0); Monocytes % (A) 3 %; Neutrophils # (A) 5.1 k/uL (1.3-7.7); Neutrophils % (A) 87 %; Platelet Count 264 k/uL (150-450); RBC 3.88 m/uL (3.80-5.40); RDW 13.8 % (11.5-15.5); WBC 5.9 k/uL (3.8-10.6)
[2020-07-10] MEDS: PANTOPRAZOLE 40 MG TABLET PO SCH (07:17)
[2020-07-10] MEDS: HYDROcodone/APAP 10-325MG 1 EACH TAB PO PRN ×2 (08:19→20:09)
[2020-07-10] MEDS: IPRATROPIUM-ALBUTEROL 3 ML NEB INHALATION PRN ×2 (08:40→20:16)
[2020-07-10] MEDS: CHOLECALCIFEROL 1,000 UNIT TAB PO SCH (08:54)
[2020-07-10] MEDS: POTASSIUM CHLORIDE ER 10 MEQ TAB.ER.PRT PO SCH ×2 (08:54→20:10)
[2020-07-10] MEDS: ASCORBIC ACID 500 MG TAB PO SCH (08:58)
[2020-07-10] MEDS: BUMETANIDE 1 MG TAB PO SCH ×2 (08:58→16:56)
[2020-07-10] MEDS: METOPROLOL TARTRATE 50 MG TAB PO SCH ×2 (08:58→20:09)
[2020-07-10] MEDS: GABAPENTIN 300 MG CAP PO SCH ×2 (08:58→20:10)
[2020-07-10 09:08] LABS: African American GFR (CKD) 59.9 (60.0-200.0); Anion Gap 9.4 mmol/L (4.00-12.00); Calcium 8.5 mg/dL (8.7-10.3); Carbon Dioxide 30.6 mmol/L (21.6-31.8); Magnesium 1.6 mg/dL (1.5-2.4); Non-African American GFR(CKD) 51.7 (60.0-200.0); Phosphorus 3.4 mg/dL (2.4-5.1); Potassium 4.1 mmol/L (3.5-5.5)
[2020-07-10] MEDS: HEPARIN SODIUM,PORCINE 5,000 UNIT/ML 1 ML VIAL SQ SCH ×2 (09:09→20:10)
[2020-07-10] MEDS: LEVOFLOXACIN 250MG-D5W PMX 250 MG in DEXTROSE/WATER 1 50ML.BAG IVPB SCH (09:10)
--- NOTE | 2020-07-10 15:15 | P.PN ---
<Juanita Mims - Last Filed: 07/10/20 15:11> Subjective Progress Note Date: 07/10/20 CHIEF COMPLAINT: Abdominal pain HISTORY OF PRESENT ILLNESS: Patient is postop day #1 status post Robotic repair of strangulated right lower quadrant ventral hernia with small bowel resection and primary anastomosis. Patient is lying in bed comfortably. She reports her pain is controlled. She is on a clear liquid diet. She is passing gas. She denies any nausea or vomiting. No bowel movement yet. She's afebrile. WBC 5.9 PHYSICAL EXAM: VITAL SIGNS: Reviewed. GENERAL: Well-developed in no acute distress. HEENT: No sclera icterus. Extraocular movements grossly intact. Moist buccal mucosa. Head is atraumatic, normocephalic. ABDOMEN: Soft. Nondistended. Incision sites clean dry and intact abdominal binder in place NEUROLOGIC: Alert and oriented. Cranial nerves II through XII grossly intact. ASSESSMENT: 1. Small bowel obstruction with infarction due to right lower quadrant ventral hernia status post Robotic repair of strangulated right lower quadrant ventral hernia with small bowel resection and primary anastomosis. Postop day #1 2. Chronic atrial fibrillation 3. History of pacemaker and AICD placement 4. History of chronic Hypoxic respiratory failure Due to end-stage COPD PLAN: -Continue clear liquid diet -Continue Levaquin -Encouraged Patient to use incentive spirometer -GI prophylaxis Protonix and DVT prophylaxis subcu heparin Physician Mason Tender note has been reviewed by physician. Signing provider agrees with the documented findings, assessment, and plan of care. Objective - Vital Signs Vital signs: Vital Signs Temp 97.5 F L 07/10/20 12:41 Pulse 68 07/10/20 12:41 Resp 20 07/10/20 12:41 BP 144/55 07/10/20 12:41 Pulse Ox 93 L 07/10/20 12:41 Intake & Output 07/09/20 07/10/20 07/10/20 18:59 06:59 18:59 Intake Total 1104 100 Output Total 5 Balance 1099 100 Intake: IV 1104 Oral 100 Output: Estimated Blood Loss 5 Other: Voiding Method Bedside Commode Bedside Commode Bedside Commode # Voids 1 - Labs CBC & Chem 7: 07/10/20 06:35 07/10/20 06:35 Labs: Abnormal Lab Results - Last 24 Hours (Table) 07/10/20 07/10/20 Range/Units 06:35 06:35 MCHC 30.3 L (31.0-37.0) g/dL Lymphocytes # 0.6 L (1.0-4.8) k/uL Sodium 147 H (135-145) mmol/L Est GFR (CKD-EPI)AfAm 59.9 L (60.0-200.0) Est GFR (CKD-EPI)NonAf 51.7 L (60.0-200.0) BUN/Creatinine Ratio 27.00 H (12.00-20.00) Ratio Glucose 114 H (70-110) mg/dL Calcium 8.5 L (8.7-10.3) mg/dL Microbiology - Last 24 Hours (Table) 07/03/20 16:26 Blood Culture - Final Blood No Growth after 144 hours <Salina Coto N - Last Filed: 07/17/20 22:23> Subjective Patient is status post small bowel resection for strangulated small bowel obstruction due to ventral hernia. Her pain is controlled. Recommend continued IV antibiotics. Objective - Vital Signs Vital signs: Vital Signs Temp 97.6 F 07/13/20 04:55 Pulse 68 07/13/20 12:06 Resp 16 07/13/20 12:06 BP 112/66 07/13/20 04:55 Pulse Ox 96 07/13/20 08:12 - Labs CBC & Chem 7: 07/13/20 04:11 07/12/20 07:47 Assessment and Plan (1) Ventral hernia with obstruction Status: Acute Code(s): K43.6 - OTHER AND UNSP VENTRAL HERNIA WITH OBSTRUCTION, W/O GANGRENE SNOMED Code(s): 313142924 (2) COPD (chronic obstructive pulmonary disease) Status: Acute Code(s): J44.9 - CHRONIC OBSTRUCTIVE PULMONARY DISEASE, UNS PECIFIED SNOMED Code(s): 78020004 (3) Chronic anticoagulation Status: Acute Code(s): Z79.01 - RETIREMENT (CURRENT) USE OF ANTICOAGULANTS SNOMED Code(s): 989128009 (4) Congestive heart failure, diastolic, left, w/preserved LV function, NYHA class 4 Status: Acute Code(s): I50.30 - UNSPECIFIED DIASTOLIC (CONGESTIVE) HEART FAILURE SNOMED Code(s): 705632185
[2020-07-10 15:32] VITALS: BMI 28.4
--- NOTE | 2020-07-10 18:01 | P.PN ---
Subjective Progress Note Date: 07/10/20 This is an 85-year-old female patient who presented to the ER with abdominal pain that had been occurring intermittently over the past few days patient reports the pain was sharp in nature. Patient reports she had decreased appetite. Additional medical history includes A. fib in which she is on eliquis , asthma, heart failure, COPD, hypertension, thyroid disorder, pacemaker, AICD and ex-smoker. Patient also reports she's had some wheezing. Chest x-ray completed showing underlying emphysema. Interstitial changes again noted within the lungs progression of thoracic compression fracture likely T6. Abdominal x- ray completed showing suspect there may be a small hernia in the right lower quadrant some local inflammation changes present there may be herniation of fat with stranding ablation no definitive bowel loop contained at this level. Some mesenteric edema or inflammatory change correlate for possible peritonitis small right pleural effusion cholelithiasis hepatic steatosis diverticulitis. Correlate to exclude colitis. Patient started on Flagyl and Levaquin and surgical consult placed. Dr. Mitchell consulted for pulmonary due to patient's established box order person. Cardiology services also consulted due to cardiac history. At this time patient is resting comfortably in bed. Patient reports some abdominal discomfort and tenderness to palpation. Patient denies any chest pain. Does report some shortness of breath. Patient denies nausea vomiting or diarrhea. Patient denies any urinary burning or frequency On 07/05/2020 patient was seen and examined on the medical floor she is alert and oriented 3 in no apparent distress pain in the right lower quadrant is improving gradually she is tolerating diet well, she has not had a bowel movement in the last 3-4 days, she is complaining of generalized weakness otherwise she denies any complaints there is no fever or chills no headache or dizziness no chest pain no shortness of breath no cough no nausea or vomiting no diarrhea no blood in the stools no burning with urination no frequency or urgency no hematuria On 07/06/2020 patient is alert and oriented 3. Patient reports abdominal pain has improved still some tenderness to palpation and movement. Patient has been tolerating diet and appetite has increased. Surgical services has no plans for surgical intervention at this time. Dr. Brown has been consulted for discharge planning. Did discuss case with case management at this time it is recommended for rehab upon discharge. Patient denies chest pain or shortness breath. Patient denies nausea vomiting or diarrhea. Patient denies any urinary burning or frequency On 07/07/2020 patient was seen and examined on the medical floor she is alert and oriented 3 of more abdominal pain today was nausea and 1 episode of vomiting this morning otherwise she denies any complaints there is no fever or chills no headache or dizziness no chest pain no shortness of breath no cough, no diarrhea no blood in the stools no burning with urination no frequency or urgency and no hematuria. At this time will proceed with repeating computed tomography scan of the abdomen and pelvis will use oral contrast, but avoid IV contrast at this time due to elevated BUN and creatinine, will notify surgery of worsening abdominal symptoms. On 07/08/2020 patient is alert and oriented 3. CT of abdomen and pelvis completed showing partial or early complete small bowel obstruction. Per surgical service is planning surgical intervention tomorrow due to eliquis. Patient remains with NG tube LIS and nothing by mouth. Patient is having some abdominal pain. Patient denies any chest pain or shortness breath. On 07/09/2020 patient was seen and examined on the medical floor she is alert and oriented 3 in no apparent distress she is still complaining of right lower quadrant abdominal pain she is scheduled today for surgery in regard to hernia and small bowel obstruction, otherwise patient denies any complaints there is no fever or chills no headache or dizziness no chest pain no shortness of breath no cough no nausea or vomiting no diarrhea and no urinary symptoms On 07/10/2020 patient was seen and examined on the medical floor she is alert and oriented 3 in no apparent distress she is maintained on full liquid diet and she is tolerating well there is no nausea or vomiting no abdominal pain, she stated that she is passing some gas there has been no bowel movements since surgery, otherwise she denies any complaints there is no fever or chills no headache or dizziness no chest pain no shortness of breath no cough and no urinary symptoms. She is postoperative day #1 Objective - Vital Signs Vital signs: Vital Signs Temp 97.4 F L 07/10/20 15:00 Pulse 60 07/10/20 15:00 Resp 16 07/10/20 15:00 BP 114/56 07/10/20 15:00 Pulse Ox 100 07/10/20 15:00 Intake & Output 07/09/20 07/10/20 07/10/20 18:59 06:59 18:59 Intake Total 1104 100 50 Output Total 5 Balance 1099 100 50 Weight 79.832 kg Intake: IV 1104 Intake, IV Titration 50 Amount Levofloxacin 250Mg-D5w 50 Pmx 250 mg In Dextrose/ Water 1 50ml.bag @ 50 mls /hr IVPB Q24HR [facility] Rx#: [id number] Oral 100 Output: Estimated Blood Loss 5 Other: Voiding Method Bedside Commode Bedside Commode Bedside Commode # Voids 1 - Exam In general patient is alert and oriented 3 in no distress Head normocephalic and atraumatic Neck supple no JVD no goiter Lungs clear to auscultation bilaterally no wheezing or crackles Heart regular rate and rhythm S1-S2, no rub or gallop Abdomen is soft tenderness to palpation to mid abdomen nondistended positive bowel sounds no hepatosplenomegaly Extremities no edema no cyanosis or clubbing Neuro no gross focal neurological deficits - Labs CBC & Chem 7: 07/10/20 06:35 07/10/20 06:35 Labs: Abnormal Lab Results - Last 24 Hours (Table) 07/10/20 07/10/20 Range/Units 06:35 06:35 MCHC 30.3 L (31.0-37.0) g/dL Lymphocytes # 0.6 L (1.0-4.8) k/uL Sodium 147 H (135-145) mmol/L Est GFR (CKD-EPI)AfAm 59.9 L (60.0-200.0) Est GFR (CKD-EPI)NonAf 51.7 L (60.0-200.0) BUN/Creatinine Ratio 27.00 H (12.00-20.00) Ratio Glucose 114 H (70-110) mg/dL Calcium 8.5 L (8.7-10.3) mg/dL Microbiology - Last 24 Hours (Table) 07/03/20 16:26 Blood Culture - Final Blood No Growth after 144 hours Assessment and Plan Plan: 1. Acute abdominal pain secondary to peritonitis versus early bleaching changes due to mesenteric edema suspicious of peritonitis. CT of abdomen completed please see above results. Surgical services have been consulted. Patient started on Levaquin and Flagyl. Blood Culture ordered, at this time patient is having worsening abdominal pain with nausea Will repeat computed tomography scan of the abdomen and pelvis, with oral contrast without IV contrast 2. Acute exacerbation of COPD. Dr. Mitchell has been consulted 3. 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 Chronic atrial fibrillation on eliquis 5. History of pacemaker and AICD placement. Cardiology services have been consulted 6. Peptic ulcer disease 7. History of peripheral neuropathy 8. Generalized anxiety disorder 9. Essential hypertension DVT prophylaxis eliquis. GI prophylaxis Protonix Surgical, pulmonary and cardiology services consulted [facility] for antibiotics. blood culture ordered PT OT ordered Social work consult for possible placement
[2020-07-10] MEDS: MONTELUKAST 10 MG TAB PO SCH (20:09)
[2020-07-10] MEDS: LATANOPROST 0.005% OPHTH DROPS 2.5 ML BTL RIGHT EYE SCH (20:10)
[2020-07-11] MEDS: ACETAMINOPHEN TAB 325 MG TAB PO SCH ×4 (02:07→15:50)
[2020-07-11 06:11] LABS: Basophils % (A) 0 %; Eosinophils # (A) 0.1 k/uL (0-0.7); Eosinophils % (A) 1 %; HCT 38.1 % (34.0-46.0); HGB 11.9 gm/dL (11.4-16.0); Hypochromasia Moderate; Lymphocytes # (A) 1.5 k/uL (1.0-4.8); Lymphocytes % (A) 22 %; MCH 30.7 pg (25.0-35.0); MCHC 31.2 g/dL (31.0-37.0); MCV 98.4 fL (80.0-100.0); Mean Platelet Volume 8.3; Monocytes # (A) 0.4 k/uL (0-1.0); Monocytes % (A) 6 %; Neutrophils # (A) 4.6 k/uL (1.3-7.7); Neutrophils % (A) 70 %; Platelet Count 249 k/uL (150-450); RBC 3.87 m/uL (3.80-5.40); RDW 13.7 % (11.5-15.5); WBC 6.6 k/uL (3.8-10.6)
[2020-07-11] MEDS: PANTOPRAZOLE 40 MG TABLET PO SCH (07:42)
[2020-07-11] MEDS: HYDROcodone/APAP 10-325MG 1 EACH TAB PO PRN ×2 (07:42→20:23)
[2020-07-11] MEDS: IPRATROPIUM-ALBUTEROL 3 ML NEB INHALATION PRN ×4 (08:34→20:33)
[2020-07-11] MEDS: ASCORBIC ACID 500 MG TAB PO SCH (09:30)
[2020-07-11] MEDS: GABAPENTIN 300 MG CAP PO SCH ×2 (09:30→20:19)
[2020-07-11] MEDS: CHOLECALCIFEROL 1,000 UNIT TAB PO SCH (09:31)
[2020-07-11] MEDS: POTASSIUM CHLORIDE ER 10 MEQ TAB.ER.PRT PO SCH ×2 (09:32→21:19)
[2020-07-11] MEDS: BUMETANIDE 1 MG TAB PO SCH ×2 (09:32→15:52)
[2020-07-11] MEDS: METOPROLOL TARTRATE 50 MG TAB PO SCH ×2 (09:33→21:19)
[2020-07-11] MEDS: HEPARIN SODIUM,PORCINE 5,000 UNIT/ML 1 ML VIAL SQ SCH ×2 (09:34→20:18)
[2020-07-11] MEDS: LEVOFLOXACIN 250MG-D5W PMX 250 MG in DEXTROSE/WATER 1 50ML.BAG IVPB SCH (09:37)
[2020-07-11 10:12] LABS: African American GFR (CKD) 39.9 (60.0-200.0); Albumin 2.8 g/dL (3.80-4.90); Albumin/Globulin Ratio 1.65 (1.60-3.17); BUN/Creat Ratio 21.43 Ratio (12.00-20.00); Calcium 8.4 mg/dL (8.7-10.3); Globulin 1.7 g/dL (1.6-3.3); Non-African American GFR(CKD) 34.4 (60.0-200.0); Potassium 3.5 mmol/L (3.5-5.5); Total Bilirubin 0.6 mg/dL (0.3-1.2); Total Protein 4.5 g/dL (6.2-8.2)
--- NOTE | 2020-07-11 10:13 | P.PN ---
Subjective Progress Note Date: 07/10/20 Principal diagnosis: Abdominal pain early peritonitis versus early inflammatory changes due to mesenteric edema suspicious of peritonitis status post repair of strangulated right lower quadrant ventral hernia and small bowel resection with primary anastomosis Stable COPD oxygen dependent and nebulizer dependent Chronic hypoxic respiratory failure due to end-stage COPD Generalized anxiety disorder Chronic atrial fibrillation on anticoagulation Component of asthma and asthmatic bronchitis Peptic ulcer disease Peripheral neuropathy hypertension hypertensive cardiovascular disease July 10, 2020, patient seen eval examined during the rounds labs reviewed medications reviewed care plan discussed with the patient at length shortness of breath has been stable, patient underwent surgery postop day #1 underwent a robotic repair of strangulated right lower quadrant ventral hernia with small bowel resection and primary a stopped anastomosis, about 5 cm distal bowel was resected, patient is in good spread doing deep breathing exercises incentive spirometry 07/09/2020, patient seen eval examined patient is for surgery by Dr. Alford for hernia repair, respiratory standpoint remains stable 07/07/2020, patient seen eval reexamined, respiratory status remains stable, blood pressure slightly high, oxygen saturation is stable on supplemental oxygen, patient remains afebrile, and data saturation are 99% 2 L, patient underwent abdominal CAT scan which continue show partial or early small bowel obstruction [facility] general surgery is following 07/06/2020, patient seen eval examined during the rounds comfortable on 2-1/2 L oxygen denies any chest pain does get short of breath on activity and exertion, intermittent cough is present nonproductive dry, abdominal pain is stable but however intermittently happens during activity and certain been over in position , patient is being followed by surgical services, This is a 85-year-old female with history of end-stage COPD and chronic asthmatic bronchitis on home oxygen and nebulizer treatment, patient is home oxygen dependent, oxygen need has however remained stable, patient came into the hospital with 3-4 day history of intermittent lower abdominal pain intermittent loose stool, has been feeling very weak, however denies any cough or sputum production she has the shortness of breath which is not much change Objective - Vital Signs Vital signs: Vital Signs Temp 97.4 F L 07/10/20 19:13 Pulse 63 07/10/20 20:27 Resp 14 07/10/20 19:20 BP 128/71 07/10/20 19:13 Pulse Ox 100 07/10/20 19:13 Intake & Output 11/11/2407/10/20 07/11/20 06:59 18:59 06:59 Intake Total 100 50 Balance 100 50 Weight 79.832 kg Intake: Intake, IV Titration 50 Amount Levofloxacin 250Mg-D5w 50 Pmx 250 mg In Dextrose/ Water 1 50ml.bag @ 50 mls /hr IVPB Q24HR [facility] Rx#: [id number] Oral 100 Other: Voiding Method Bedside Commode Bedside Commode Bedside Commode # Voids 1 - Exam - Constitutional General appearance: average body habitus, cooperative, disheveled - EENT Eyes: PERRLA Ears: bilateral: normal - Neck Neck: normal ROM Carotids: bilateral: upstroke normal Thyroid: bilateral: normal size - Respiratory Respiratory: bilateral: CTA, diminished - Cardiovascular Rhythm: regular Heart sounds: normal: S1, S2 - Gastrointestinal General gastrointestinal: Hypoactive bowel sounds, soft - Neurologic Neurologic: CNII-XII intact - Musculoskeletal Musculoskeletal: gait normal, generalized weakness, strength equal bilaterally - Psychiatric Psychiatric: A&O x's 3, appropriate affect, intact judgment & insight - Labs CBC & Chem 7: 07/11/20 05:33 07/10/20 06:35 Labs: Abnormal Lab Results - Last 24 Hours (Table) 07/10/20 07/10/20 Range/Units 06:35 06:35 MCHC 30.3 L (31.0-37.0) g/dL Lymphocytes # 0.6 L (1.0-4.8) k/uL Sodium 147 H (135-145) mmol/L Est GFR (CKD-EPI)AfAm 59.9 L (60.0-200.0) Est GFR (CKD-EPI)NonAf 51.7 L (60.0-200.0) BUN/Creatinine Ratio 27.00 H (12.00-20.00) Ratio Glucose 114 H (70-110) mg/dL Calcium 8.5 L (8.7-10.3) mg/dL Assessment and Plan Assessment: Small bowel obstruction, with strangulated ventral wall hernia, status post repair of ventral hernia with small bowel resection Abdominal pain early peritonitis related to that latest CT showed evidence of small bowel obstruction Stable COPD oxygen dependent and nebulizer dependent Chronic hypoxic respiratory failure due to end-stage COPD Generalized anxiety disorder Chronic atrial fibrillation on anticoagulation Component of asthma and asthmatic bronchitis Peptic ulcer disease Peripheral neuropathy hypertension hypertensive cardiovascular disease Plan: Pain management DVT prophylaxis Continue gentle rehydration, agree with surgical evaluation and recommendation, c ontinue bronchodilators, as patient is not in COPD exacerbation so will hold on steroids. Continue breathing treatments supplemental oxygen deep breathing exercises further evaluation pending plan of care as per clinical response of patient will follow surgical advice with surgical repair as above Time with Patient: Greater than 30
--- NOTE | 2020-07-11 10:14 | P.PN ---
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 Generalized anxiety disorder Chronic atrial fibrillation on anticoagulation Component of asthma and asthmatic bronchitis Peptic ulcer disease Peripheral neuropathy hypertension hypertensive cardiovascular disease 07/11/2020, patient seen eval examined during the rounds labs reviewed medications reviewed, patient sitting upright in the bed breathing comfortably remains on 2 L oxygen, denies any chest pain, has been tolerating oral very well, July 10, 2020, patient seen eval examined during the rounds labs reviewed medications reviewed care plan discussed with the patient at length shortness of breath has been stable, patient underwent surgery postop day #1 underwent a robotic repair of strangulated right lower quadrant ventral hernia with small bowel resection and primary a stopped anastomosis, about 5 cm distal bowel was resected, patient is in good spread doing deep breathing exercises incentive spirometry 07/09/2020, patient seen eval examined patient is for surgery by Dr. Alford for hernia repair, respiratory standpoint remains stable 07/07/2020, patient seen eval reexamined, respiratory status remains stable, blood pressure slightly high, oxygen saturation is stable on supplemental oxygen, patient remains afebrile, and data saturation are 99% 2 L, patient underwent abdominal CAT scan which continue show partial or early small bowel obstruction [facility] general surgery is following 07/06/2020, patient seen eval examined during the rounds comfortable on 2-1/2 L oxygen denies any chest pain does get short of breath on activity and exertion, intermittent cough is present nonproductive dry, abdominal pain is stable but however intermittently happens during activity and certain been over in position, patient is being followed by surgical services, This is a 85-year-old female with history of end-stage COPD and chronic asthmatic bronchitis on home oxygen and nebulizer treatment, patient is home oxygen dependent, oxygen need has however remained stable, patient came into the hospital with 3-4 day history of intermittent lower abdominal pain intermittent loose stool, has been feeling very weak, however denies any cough or sputum production she has the shortness of breath which is not much change Objective - Vital Signs Vital signs: Vital Signs Temp 97.4 F L 07/11/20 07:17 Pulse 68 07/11/20 08:50 Resp 16 07/11/20 07:17 BP 134/71 07/11/20 07:17 Pulse Ox 100 07/11/20 07:17 Intake & Output 07/10/20 07/11/20 07/11/20 18:59 06:59 18:59 Intake Total 50 150 Output Total 600 Balance 50 -600 150 Weight 79.832 kg Intake: Intake, IV Titration 50 50 Amount Levofloxacin 250Mg-D5w 50 50 Pmx 250 mg In Dextrose/ Water 1 50ml.bag @ 50 mls /hr IVPB Q24HR [facility] Rx#: [id number] Oral 100 Output: Urine 600 Uretheral ([place]) 500 Other: Voiding Method Bedside Commode Bedside Commode - Exam - Constitutional General appearance: average body habitus, cooperative, disheveled - EENT Eyes: PERRLA Ears: bilateral: normal - Neck Neck: normal ROM Carotids: bilateral: upstroke normal Thyroid: bilateral: normal size - Respiratory Respiratory: bilateral: CTA, diminished - Cardiovascular Rhythm: regular Heart sounds: normal: S1, S2 - Gastrointestinal General gastrointestinal: Hypoactive bowel sounds, soft - Neurologic Neurologic: CNII-XII intact - Musculoskeletal Musculoskeletal: gait normal, generalized weakness, strength equal bilaterally - Psychiatric Psychiatric: A&O x's 3, appropriate affect, intact judgment & insight - Labs CBC & Chem 7: 07/11/20 05:33 07/11/20 05:33 Labs: Abnormal Lab Results - Last 24 Hours (Table) 07/11/20 Range/Units 05:33 BUN 30.0 H (9.0-27.0) mg/dL Est GFR (CKD-EPI)AfAm 39.9 L (60.0-200.0) Est GFR (CKD-EPI)NonAf 34.4 L (60.0-200.0) BUN/Creatinine Ratio 21.43 H (12.00-20.00) Ratio Calcium 8.4 L (8.7-10.3) mg/dL Total Protein 4.5 L (6.2-8.2) g/dL Albumin 2.80 L (3.80-4.90) g/dL Assessment and Plan Assessment: Small bowel obstruction, with strangulated ventral wall hernia, status post repair of ventral hernia with small bowel resection Abdominal pain early peritonitis related to that latest CT showed evidence of small bowel obstruction Stable COPD oxygen dependent and nebulizer dependent Chronic hypoxic respiratory failure due to end-stage COPD Generalized anxiety disorder Chronic atrial fibrillation on anticoagulation Component of asthma and asthmatic bronchitis Peptic ulcer disease Peripheral neuropathy hypertension hypertensive cardiovascular disease Plan: Pain management DVT prophylaxis Continue gentle rehydration, agree with surgical evaluation and recommendation, c ontinue bronchodilators, as patient is not in COPD exacerbation so will hold on steroids. Continue breathing treatments supplemental oxygen deep breathing exercises further evaluation pending plan of care as per clinical response of patient will follow surgical advice with surgical repair as above Time with Patient: Greater than 30
--- NOTE | 2020-07-11 10:18 | P.PN ---
Subjective Progress Note Date: 07/11/20 This is an 85-year-old female patient who presented to the ER with abdominal pain that had been occurring intermittently over the past few days patient reports the pain was sharp in nature. Patient reports she had decreased appetite. Additional medical history includes A. fib in which she is on eliquis , asthma, heart failure, COPD, hypertension, thyroid disorder, pacemaker, AICD and ex-smoker. Patient also reports she's had some wheezing. Chest x-ray completed showing underlying emphysema. Interstitial changes again noted within the lungs progression of thoracic compression fracture likely T6. Abdominal x- ray completed showing suspect there may be a small hernia in the right lower quadrant some local inflammation changes present there may be herniation of fat with stranding ablation no definitive bowel loop contained at this level. Some mesenteric edema or inflammatory change correlate for possible peritonitis small right pleural effusion cholelithiasis hepatic steatosis diverticulitis. Correlate to exclude colitis. Patient started on Flagyl and Levaquin and surgical consult placed. 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 Cardiology services also consulted due to cardiac history. At this time patient is resting comfortably in bed. Patient reports some abdominal discomfort and tenderness to palpation. Patient denies any chest pain. Does report some shortness of breath. Patient denies nausea vomiting or diarrhea. Patient denies any urinary burning or frequency On 07/05/2020 patient was seen and examined on the medical floor she is alert and oriented 3 in no apparent distress pain in the right lower quadrant is improving gradually she is tolerating diet well, she has not had a bowel movement in the last 3-4 days, she is complaining of generalized weakness otherwise she denies any complaints there is no fever or chills no headache or dizziness no chest pain no shortness of breath no cough no nausea or vomiting no diarrhea no blood in the stools no burning with urination no frequency or urgency no hematuria On 07/06/2020 patient is alert and oriented 3. Patient reports abdominal pain has improved still some tenderness to palpation and movement. Patient has been tolerating diet and appetite has increased. Surgical services has no plans for surgical intervention at this time. Dr. Brown has been consulted for discharge planning. Did discuss case with case management at this time it is recommended for rehab upon discharge. Patient denies chest pain or shortness breath. Patient denies nausea vomiting or diarrhea. Patient denies any urinary burning or frequency On 07/07/2020 patient was seen and examined on the medical floor she is alert and oriented 3 of more abdominal pain today was nausea and 1 episode of vomiting this morning otherwise she denies any complaints there is no fever or chills no headache or dizziness no chest pain no shortness of breath no cough, no diarrhea no blood in the stools no burning with urination no frequency or urgency and no hematuria. At this time will proceed with repeating computed tomography scan of the abdomen and pelvis will use oral contrast, but avoid IV contrast at this time due to elevated BUN and creatinine, will notify surgery of worsening abdominal symptoms. On 07/08/2020 patient is alert and oriented 3. CT of abdomen and pelvis completed showing partial or early complete small bowel obstruction. Per surgical service is planning surgical intervention tomorrow due to eliquis. Patient remains with NG tube LIS and nothing by mouth. Patient is having some abdominal pain. Patient denies any chest pain or shortness breath. On 07/09/2020 patient was seen and examined on the medical floor she is alert and oriented 3 in no apparent distress she is still complaining of right lower quadrant abdominal pain she is scheduled today for surgery in regard to hernia and small bowel obstruction, otherwise patient denies any complaints there is no fever or chills no headache or dizziness no chest pain no shortness of breath no cough no nausea or vomiting no diarrhea and no urinary symptoms On 07/10/2020 patient was seen and examined on the medical floor she is alert and oriented 3 in no apparent distress she is maintained on full liquid diet and she is tolerating well there is no nausea or vomiting no abdominal pain, she stated that she is passing some gas there has been no bowel movements since surgery, otherwise she denies any complaints there is no fever or chills no headache or dizziness no chest pain no shortness of breath no cough and no urinary symptoms. She is postoperative day #1 On patient is alert and oriented X3. Patient has been tolerating diet. passing gas no bowel movement. Denies any chest pain or shortness of breath. Denies any urinary burning or frequency. Denies any nausea, vomiting or diarrhea Objective - Vital Signs Vital signs: Vital Signs Temp 97.4 F L 07/11/20 07:17 Pulse 68 07/11/20 08:50 Resp 16 07/11/20 07:17 BP 134/71 07/11/20 07:17 Pulse Ox 100 07/11/20 07:17 Intake & Output 07/10/20 07/11/20 07/11/20 18:59 06:59 18:59 Intake Total 50 Output Total 600 Balance 50 -600 Weight 79.832 kg Intake: Intake, IV Titration 50 Amount Levofloxacin 250Mg-D5w 50 Pmx 250 mg In Dextrose/ Water 1 50ml.bag @ 50 mls /hr IVPB Q24HR [facility] Rx#: [id number] Output: Urine 600 Uretheral ([place]) 500 Other: Voiding Method Bedside Commode Bedside Commode - Exam In general patient is alert and oriented 3 in no distress Head normocephalic and atraumatic Neck supple no JVD no goiter Lungs clear to auscultation bilaterally no wheezing or crackles Heart regular rate and rhythm S1-S2, no rub or gallop Abdomen is soft tenderness to palpation to mid abdomen nondistended positive bowel sounds no hepatosplenomegaly Extremities no edema no cyanosis or clubbing Neuro no gross focal neurological deficits - Labs CBC & Chem 7: 07/11/20 05:33 07/10/20 06:35 Labs: Abnormal Lab Results - Last 24 Hours (Table) 07/10/20 Range/Units 06:35 Sodium 147 H (135-145) mmol/L Est GFR (CKD-EPI)AfAm 59.9 L (60.0-200.0) Est GFR (CKD-EPI)NonAf 51.7 L (60.0-200.0) BUN/Creatinine Ratio 27.00 H (12.00-20.00) Ratio Glucose 114 H (70-110) mg/dL Calcium 8.5 L (8.7-10.3) mg/dL Assessment and Plan Plan: 1. Acute abdominal pain secondary to peritonitis versus early bleaching changes due to mesenteric edema suspicious of peritonitis. CT of abdomen completed please see above results. Surgical services have been consulted. Patient underwent repair of strangulated right lower quadrant ventral hernia with small bowel resection and primary anastomosis on 07/09/2020. post op day 2. clear liquid diet. 2. Acute exacerbation of COPD. Dr. Mitchell has been consulted 3. 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 Chronic atrial fibrillation on eliquis. eliquis on hold per surgery 5. History of pacemaker and AICD placement. Cardiology services have been consulted 6. Peptic ulcer disease 7. History of peripheral neuropathy 8. Generalized anxiety disorder 9. Essential hypertension DVT prophylaxis heparin, eliquis on hold per surgery. GI prophylaxis Protonix Surgical, pulmonary and cardiology services following Levaquin for antibiotics. PT OT ordered Social work consult for possible placement
--- NOTE | 2020-07-11 15:07 | P.PN ---
<Juanita Mims - Last Filed: 07/11/20 15:00> Subjective Progress Note Date: 07/11/20 CHIEF COMPLAINT: Abdominal pain HISTORY OF PRESENT ILLNESS: Patient is postop day #2 status post Robotic repair of strangulated right lower quadrant ventral hernia with small bowel resection and primary anastomosis. Patient is lying in bed comfortably. She reports her pain is controlled. She is on a clear liquid diet. She is passing gas. She denies any nausea or vomiting. No bowel movement yet. She is working with physical therapy. Patient complaining of difficulty urinating. She's afebrile. WBC 6.6 PHYSICAL EXAM: VITAL SIGNS: Reviewed GENERAL: Well-developed in no acute distress. HEENT: No sclera icterus. Extraocular movements grossly intact. Moist buccal mucosa. Head is atraumatic, normocephalic. Hears conversational speech. No nasal drainage. NECK: Supple without lymphadenopathy. CHEST: Non-labored respirations and equal bilateral excursions. CARDIOVASCULAR: Palpable 2+ radial pulses. ABDOMEN: Soft. Nondistended. Abdominal binder in place MUSCULOSKELETAL: No clubbing or cyanosis. NEUROLOGIC: No focal or lateralizing signs. Cranial nerves II through XII grossly intact. PSYCH: Appropriate affect. Alert and oriented to person, place and time. SKIN: Well perfused. Good skin turgor. ASSESSMENT: 1. Small bowel obstruction with infarction due to right lower quadrant ventral hernia status post Robotic repair of strangulated right lower quadrant ventral hernia with small bowel resection and primary anastomosis. 2. Chronic atrial fibrillation 3. History of pacemaker and AICD placement 4. History of chronic Hypoxic respiratory failure Due to end-stage COPD PLAN: -Advance diet to regular diet -Flomax added for urinary retention -Can resume Eliquis on Thursday -Continue Levaquin -Encouraged Patient to use incentive spirometer -GI prophylaxis Protonix and DVT prophylaxis subcu heparin Physician [employer] note has been reviewed by physician. Signing provider agrees with the documented findings, assessment, and plan of care. Objective - Vital Signs Vital signs: Vital Signs Temp 97.4 F L 07/11/20 07:17 Pulse 72 07/11/20 13:01 Resp 16 07/11/20 07:17 BP 134/71 07/11/20 07:17 Pulse Ox 100 07/11/20 07:17 Intake & Output 07/10/20 07/11/2007/11/20 18:59 06:59 18:59 Intake Total 50 150 Output Total 600 250 Balance 50 -600 -100 Weight 79.832 kg Intake: Intake, IV Titration 50 50 Amount Levofloxacin 250Mg-D5w 50 50 Pmx 250 mg In Dextrose/ Water 1 50ml.bag @ 50 mls /hr IVPB Q24HR [facility] Rx#: [id number] Oral 100 Output: Urine 600 250 Straight 250 Uretheral ([place]) 500 Other: Voiding Method Bedside Commode Bedside Commode Bedside Commode - Labs CBC & Chem 7: 07/11/20 05:33 07/11/20 05:33 Labs: Abnormal Lab Results - Last 24 Hours (Table) 07/11/20 Range/Units 05:33 BUN 30.0 H (9.0-27.0) mg/dL Est GFR (CKD-EPI)AfAm 39.9 L (60.0-200.0) Est GFR (CKD-EPI)NonAf 34.4 L (60.0-200.0) BUN/Creatinine Ratio 21.43 H (12.00-20.00) Ratio Calcium 8.4 L (8.7-10.3) mg/dL Total Protein 4.5 L (6.2-8.2) g/dL Albumin 2.80 L (3.80-4.90) g/dL <Salina Coto N - Last Filed: 07/17/20 22:25> Subjective Patient is status post small bowel resection for small bowel strangulation. She is tolerating diet. She has urinary retention. Recommend Flomax. Advance diet as tolerated. Objective - Vital Signs Vital signs: Vital Signs Temp 97.6 F 07/13/20 04:55 Pulse 68 07/13/20 12:06 Resp 16 07/13/20 12:06 BP 112/66 07/13/20 04:55 Pulse Ox 96 07/13/20 08:12 - Labs CBC & Chem 7: 07/13/20 04:11 07/12/20 07:47 Assessment and Plan (1) Ventral hernia with obstruction Status: Acute Code(s): K43.6 - OTHER AND UNSP VENTRAL HERNIA WITH OBSTRUCTION, W/O GANGRENE SNOMED Code(s): 532238824 (2) COPD (chronic obstructive pulmonary disease) Status: Acute Code(s): J44.9 - CHRONIC OBSTRUCTIVE PULMONARY DISEASE, UNSPECIFIED SNOMED Code(s): 07362996 (3) Chronic anticoagulation Status: Acute Code(s): Z79.01 - SENIOR CARE (CURRENT) USE OF ANTICOAGULANTS SNOMED Code(s): 436166459 (4) Congestive heart failure, diastolic, left, w/preserved LV function, NYHA cla ss 4 Status: Acute Code(s): I50.30 - UNSPECIFIED DIASTOLIC (CONGESTIVE) HEART FAILURE SNOMED Code(s): 158931925
[2020-07-11] MEDS: TAMSULOSIN 0.4 MG CAP.ER.24H PO SCH (15:50)
[2020-07-11] MEDS: MONTELUKAST 10 MG TAB PO SCH (21:19)
[2020-07-11] MEDS: LATANOPROST 0.005% OPHTH DROPS 2.5 ML BTL RIGHT EYE SCH (21:19)
[2020-07-12] MEDS: ACETAMINOPHEN TAB 325 MG TAB PO SCH ×4 (01:07→17:22)
[2020-07-12 08:07] LABS: Basophils # (A) 0.1 k/uL (0-0.2); Basophils % (A) 1 %; Eosinophils # (A) 0.2 k/uL (0-0.7); Eosinophils % (A) 3 %; HCT 43.4 % (34.0-46.0); HGB 13.3 gm/dL (11.4-16.0); Hypochromasia Marked; Lymphocytes # (A) 2.1 k/uL (1.0-4.8); Lymphocytes % (A) 27 %; MCH 30.4 pg (25.0-35.0); MCHC 30.5 g/dL (31.0-37.0); MCV 99.4 fL (80.0-100.0); Mean Platelet Volume 8.6; Monocytes # (A) 0.4 k/uL (0-1.0); Monocytes % (A) 5 %; Neutrophils # (A) 4.9 k/uL (1.3-7.7); Neutrophils % (A) 62 %; Platelet Count 239 k/uL (150-450); RBC 4.37 m/uL (3.80-5.40); RDW 13.6 % (11.5-15.5); WBC 7.8 k/uL (3.8-10.6)
[2020-07-12] MEDS: GABAPENTIN 300 MG CAP PO SCH ×2 (09:50→20:37)
[2020-07-12] MEDS: APIXABAN 2.5 MG TABLET PO SCH ×2 (09:51→20:37)
[2020-07-12] MEDS: LEVOFLOXACIN 250MG-D5W PMX 250 MG in DEXTROSE/WATER 1 50ML.BAG IVPB SCH (09:51)
[2020-07-12] MEDS: CHOLECALCIFEROL 1,000 UNIT TAB PO SCH (09:51)
[2020-07-12] MEDS: METOPROLOL TARTRATE 50 MG TAB PO SCH ×2 (09:52→20:38)
[2020-07-12] MEDS: ASCORBIC ACID 500 MG TAB PO SCH (09:52)
[2020-07-12] MEDS: BUMETANIDE 1 MG TAB PO SCH ×2 (09:53→17:22)
[2020-07-12] MEDS: POTASSIUM CHLORIDE ER 10 MEQ TAB.ER.PRT PO SCH ×2 (09:53→09:54)
[2020-07-12] MEDS: PANTOPRAZOLE 40 MG TABLET PO SCH (09:53)
[2020-07-12] MEDS: TAMSULOSIN 0.4 MG CAP.ER.24H PO SCH (09:53)
[2020-07-12 10:50] LABS: African American GFR (CKD) 36.7 (60.0-200.0); Albumin 3.1 g/dL (3.80-4.90); Albumin/Globulin Ratio 1.55 (1.60-3.17); Anion Gap 12.1 mmol/L (4.00-12.00); Calcium 8.4 mg/dL (8.7-10.3); Carbon Dioxide 26.9 mmol/L (21.6-31.8); Magnesium 1.4 mg/dL (1.5-2.4); Non-African American GFR(CKD) 31.7 (60.0-200.0); Total Bilirubin 0.5 mg/dL (0.2-1.2); Total Protein 5.1 g/dL (6.2-8.2)
[2020-07-12] MEDS: HEPARIN SODIUM,PORCINE 5,000 UNIT/ML 1 ML VIAL SQ SCH (13:12)
--- NOTE | 2020-07-12 13:43 | P.PN ---
<MarybethJuanita garcia - Last Filed: 07/12/20 13:38> Subjective Progress Note Date: 07/12/20 CHIEF COMPLAINT: Abdominal pain HISTORY OF PRESENT ILLNESS: Patient is postop day #3 status post Robotic repair of strangulated right lower quadrant ventral hernia with small bowel resection and primary anastomosis. Patient is sitting at bedside chair. She reports her pain is controlled. She is on a clear liquid diet. She is passing gas. She denies any nausea or vomiting. No bowel movement yet. She has been walking with physical therapy. She's afebrile. WBC 7.8 Hgb 13.3 magnesium 1.4 PHYSICAL EXAM: VITAL SIGNS: Reviewed GENERAL: Well-developed in no acute distress. HEENT: No sclera icterus. Extraocular movements grossly intact. Moist buccal mucosa. Head is atraumatic, normocephalic. Hears conversational speech. No nasal drainage. NECK: Supple without lymphadenopathy. CHEST: Non-labored respirations and equal bilateral excursions. CARDIOVASCULAR: Palpable 2+ radial pulses. ABDOMEN: Soft. Nondistended. Abdominal binder in place MUSCULOSKELETAL: No clubbing or cyanosis. NEUROLOGIC: No focal or lateralizing signs. Cranial nerves II through XII grossly intact. PSYCH: Appropriate affect. Alert and oriented to person, place and time. SKIN: Well perfused. Good skin turgor. ASSESSMENT: 1. Small bowel obstruction with infarction due to right lower quadrant ventral hernia status post Robotic repair of strangulated right lower quadrant ventral hernia with small bowel resection and primary anastomosis. 2. Chronic atrial fibrillation 3. History of pacemaker and AICD placement 4. History of chronic Hypoxic respiratory failure Due to end-stage COPD 5. Hypomagnesemia PLAN: -We'll restart patient's Eliquis today and monitor for any signs of bleeding. Recheck Hgb in the morning. 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 Signing provider agrees with the documented findings, assessment, and plan of care. Objective - Vital Signs Vital signs: Vital Signs Temp 97.9 F 07/12/20 11:27 Pulse 59 L 07/12/20 11:27 Resp 18 07/12/20 11:27 BP 130/82 07/12/20 11:27 Pulse Ox 97 07/12/20 11:27 Intake & Output 07/11/20 07/12/20 07/12/20 18:59 06:59 18:59 Intake Total 150 750 Output Total 250 Balance -100 750 Intake: Intake, IV Titration 50 50 Amount Levofloxacin 250Mg-D5w 50 50 Pmx 250 mg In Dextrose/ Water 1 50ml.bag @ 50 mls /hr IVPB Q24HR [facility] Rx#: [id number] Oral 100 700 Output: Urine 250 Straight 250 Other: Voiding Method Bedside Commode Bedside Commode # Voids 0 1 - Labs CBC & Chem 7: 07/12/20 07:47 07/12/20 07:47 Labs: Abnormal Lab Results - Last 24 Hours (Table) 07/12/20 07/12/20 Range/Units 07:47 07:47 MCHC 30.5 L (31.0-37.0) g/dL Anion Gap 12.10 H (4.00-12.00) mmol/L BUN 33.0 H (9.0-27.0) mg/dL Est GFR (CKD-EPI)AfAm 36.7 L (60.0-200.0) Est GFR (CKD-EPI)NonAf 31.7 L (60.0-200.0) BUN/Creatinine Ratio 22.00 H (12.00-20.00) Ratio Calcium 8.4 L (8.7-10.3) mg/dL Magnesium 1.4 L (1.5-2.4) mg/dL Total Protein 5.1 L (6.2-8.2) g/dL Albumin 3.10 L (3.80-4.90) g/dL Albumin/Globulin Ratio 1.55 L (1.60-3.17) g/dL <Salina Coto - Last Filed: 07/17/20 22:27> Subjective Patient seen and evaluated with above. She is tolerating diet. Labs reviewed with elevated creatinine. Patient is stable from a surgical point for discharge once tolerating diet and will hemoglobin is stable following initiation of blood thinners. Objective - Vital Signs Vital signs: Vital Signs Temp 97.9 F 07/12/20 11:27 Pulse 59 L 07/12/20 11:27 Resp 18 07/12/20 11:27 BP 130/82 07/12/20 11:27 Pulse Ox 97 07/12/20 11:27 Intake & Output 07/12/20 07/12/20 07/13/20 06:59 18:59 06:59 Intake Total 750 Balance 750 Intake: Intake, IV Titration 50 Amount Levofloxacin 250Mg-D5w 50 Pmx 250 mg In Dextrose/ Water 1 50ml.bag @ 50 mls /hr IVPB Q24HR [facility] Rx#: [id number] Oral 700 Other: Voiding Method Bedside Commode # Voids 0 1 - Labs CBC & Chem 7: 07/13/20 04:11 07/12/20 07:47 Labs: Abnormal Lab Results - Last 24 Hours (Table) 07/12/20 07/12/20 Range/Units 07:47 07:47 MCHC 30.5 L (31.0-37.0) g/dL Anion Gap 12.10 H (4.00-12.00) mmol/L BUN 33.0 H (9.0-27.0) mg/dL Est GFR (CKD-EPI)AfAm 36.7 L (60.0-200.0) Est GFR (CKD-EPI)NonAf 31.7 L (60.0-200.0) BUN/Creatinine Ratio 22.00 H (12.00-20.00) Ratio Calcium 8.4 L (8.7-10.3) mg/dL Magnesium 1.4 L (1.5-2.4) mg/dL Total Protein 5.1 L (6.2-8.2) g/dL Albumin 3.10 L (3.80-4.90) g/dL Albumin/Globulin Ratio 1.55 L (1.60-3.17) g/dL Assessment and Plan (1) Ventral hernia with obstruction Status: Acute Code(s): K43.6 - OTHER AND UNSP VENTRAL HERNIA WITH OBSTRUCTION, W/O GANGRENE SNOMED Code(s): 205274800 (2) COPD (chronic obstructive pulmonary disease) Status: Acute Code(s): J44.9 - CHRONIC OBSTRUCTIVE PULMONARY DISEASE, UNSPECIFIED SNOMED Code(s): 79774388 (3) Chronic anticoagulation Status: Acute Code(s): Z79.01 - SHELTER (CURRENT) USE OF ANTICOAGULANTS SNOMED Code(s): 299202535 (4) Congestive heart failure, diastolic, left, w/preserved LV function, NYHA class 4 Status: Acute Code(s): I50.30 - UNSPECIFIED DIASTOLIC (CONGESTIVE) HEART FAILURE SNOMED Code(s): 416302436
[2020-07-12] MEDS: MAGNESIUM SULFATE-D5W PMX 1 GM in DEXTROSE/WATER 1 100ML.BAG IVPB SCH ×2 (14:24→15:42)
[2020-07-12] MEDS: HYDROcodone/APAP 10-325MG 1 EACH TAB PO PRN (14:25)
[2020-07-12] MEDS: ONDANSETRON 4 MG/2 ML VIAL IVP PRN (14:28)
--- NOTE | 2020-07-12 18:26 | P.PN ---
Subjective Progress Note Date: 07/12/20 This is an 85-year-old female patient who presented to the ER with abdominal pain that had been occurring intermittently over the past few days patient reports the pain was sharp in nature. Patient reports she had decreased appetite. Additional medical history includes A. fib in which she is on eliquis , asthma, heart failure, COPD, hypertension, thyroid disorder, pacemaker, AICD and ex-smoker. Patient also reports she's had some wheezing. Chest x-ray completed showing underlying emphysema. Interstitial changes again noted within the lungs progression of thoracic compression fracture likely T6. Abdominal x- ray completed showing suspect there may be a small hernia in the right lower quadrant some local inflammation changes present there may be herniation of fat with stranding ablation no definitive bowel loop contained at this level. Some mesenteric edema or inflammatory change correlate for possible peritonitis small right pleural effusion cholelithiasis hepatic steatosis diverticulitis. Correlate to exclude colitis. Patient started on Flagyl and Levaquin and surgical consult placed. Dr. 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 Cardiology services also consulted due to cardiac history. At this time patient is resting comfortably in bed. Patient reports some abdominal discomfort and tenderness to palpation. Patient denies any chest pain. Does report some shortness of breath. Patient denies nausea vomiting or diarrhea. Patient denies any urinary burning or frequency On 07/05/2020 patient was seen and examined on the medical floor she is alert and oriented 3 in no apparent distress pain in the right lower quadrant is improving gradually she is tolerating diet well, she has not had a bowel movement in the last 3-4 days, she is complaining of generalized weakness otherwise she denies any complaints there is no fever or chills no headache or dizziness no chest pain no shortness of breath no cough no nausea or vomiting no diarrhea no blood in the stools no burning with urination no frequency or urgency no hematuria On 07/06/2020 patient is alert and oriented 3. Patient reports abdominal pain has improved still some tenderness to palpation and movement. Patient has been tolerating diet and appetite has increased. Surgical services has no plans for surgical intervention at this time. Dr. Brown has been consulted for discharge planning. Did discuss case with case management at this time it is recommended for rehab upon discharge. Patient denies chest pain or shortness breath. Patient denies nausea vomiting or diarrhea. Patient denies any urinary burning or frequency On 07/07/2020 patient was seen and examined on the medical floor she is alert and oriented 3 of more abdominal pain today was nausea and 1 episode of vomiting this morning otherwise she denies any complaints there is no fever or chills no headache or dizziness no chest pain no shortness of breath no cough, no diarrhea no blood in the stools no burning with urination no frequency or urgency and no hematuria. At this time will proceed with repeating computed tomography scan of the abdomen and pelvis will use oral contrast, but avoid IV contrast at this time due to elevated BUN and creatinine, will notify surgery of worsening abdominal symptoms. On 07/08/2020 patient is alert and oriented 3. CT of abdomen and pelvis completed showing partial or early complete small bowel obstruction. Per surgical service is planning surgical intervention tomorrow due to eliquis. Patient remains with NG tube LIS and nothing by mouth. Patient is having some abdominal pain. Patient denies any chest pain or shortness breath. On 07/09/2020 patient was seen and examined on the medical floor she is alert and oriented 3 in no apparent distress she is still complaining of right lower quadrant abdominal pain she is scheduled today for surgery in regard to hernia and small bowel obstruction, otherwise patient denies any complaints there is no fever or chills no headache or dizziness no chest pain no shortness of breath no cough no nausea or vomiting no diarrhea and no urinary symptoms On 07/10/2020 patient was seen and examined on the medical floor she is alert and oriented 3 in no apparent distress she is maintained on full liquid diet and she is tolerating well there is no nausea or vomiting no abdominal pain, she stated that she is passing some gas there has been no bowel movements since surgery, otherwise she denies any complaints there is no fever or chills no headache or dizziness no chest pain no shortness of breath no cough and no urinary symptoms. She is postoperative day #1 On patient is alert and oriented X3. Patient has been tolerating diet. passing gas no bowel movement. Denies any chest pain or shortness of breath. Denies any urinary burning or frequency. Denies any nausea, vomiting or diarrhea On 07/12/2020 patient was seen and examined on the medical floor she is alert and oriented 3 in no distress there is no fever or chills no headache or dizziness no chest pain no shortness of breath no cough no nausea or vomiting no diarrhea no blood in the stoolsno abdominal pain and no urinary symptoms, patient is tolerating diet well, she is able to ambulate, continue current care possible di scharge to home tomorrow. Objective - Vital Signs Vital signs: Vital Signs Temp 97.9 F 07/12/20 11:27 Pulse 59 L 07/12/20 11:27 Resp 18 07/12/20 11:27 BP 130/82 07/12/20 11:27 Pulse Ox 97 07/12/20 11:27 Intake & Output 07/11/20 07/12/20 07/12/20 18:59 06:59 18:59 Intake Total 150 750 Output Total 250 Balance -100 750 Intake: Intake, IV Titration 50 50 Amount Levofloxacin 250Mg-D5w 50 50 Pmx 250 mg In Dextrose/ Water 1 50ml.bag @ 50 mls /hr IVPB Q24HR [facility] Rx#: [id number] Oral 100 700 Output: Urine 250 Straight 250 Other: Voiding Method Bedside Commode Bedside Commode # Voids 0 1 - Exam In general patient is alert and oriented 3 in no distress Head normocephalic and atraumatic Neck supple no JVD no goiter Lungs clear to auscultation bilaterally no wheezing or crackles Heart regular rate and rhythm S1-S2, no rub or gallop Abdomen is soft tenderness to palpation to mid abdomen nondistended positive bowel sounds no hepatosplenomegaly Extremities no edema no cyanosis or clubbing Neuro no gross focal neurological deficits - Labs CBC & Chem 7: 07/12/20 07:47 07/12/20 07:47 Labs: Abnormal Lab Results - Last 24 Hours (Table) 07/12/20 07/12/20 Range/Units 07:47 07:47 MCHC 30.5 L (31.0-37.0) g/dL Anion Gap 12.10 H (4.00-12.00) mmol/L BUN 33.0 H (9.0-27.0) mg/dL Est GFR (CKD-EPI)AfAm 36.7 L (60.0-200.0) Est GFR (CKD-EPI)NonAf 31.7 L (60.0-200.0) BUN/Creatinine Ratio 22.00 H (12.00-20.00) Ratio Calcium 8.4 L (8.7-10.3) mg/dL Magnesium 1.4 L (1.5-2.4) mg/dL Total Protein 5.1 L (6.2-8.2) g/dL Albumin 3.10 L (3.80-4.90) g/dL Albumin/Globulin Ratio 1.55 L (1.60-3.17) g/dL Assessment and Plan Plan: 1. Acute abdominal pain secondary to peritonitis versus early bleaching changes due to mesenteric edema suspicious of peritonitis. CT of abdomen completed plea se see above results. Surgical services have been consulted. Patient underwent repair of strangulated right lower quadrant ventral hernia with small bowel resection and primary anastomosis on 07/09/2020. post op day 2. clear liquid diet. 2. Acute exacerbation of COPD. Dr. Mitchell has been consulted 3. 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 Chronic atrial fibrillation on eliquis. eliquis on hold per surgery 5. History of pacemaker and AICD placement. Cardiology services have been consulted 6. Peptic ulcer disease 7. History of peripheral neuropathy 8. Generalized anxiety disorder 9. Essential hypertension DVT prophylaxis heparin, eliquis on hold per surgery. GI prophylaxis Protonix Surgical, pulmonary and cardiology services following Levaquin for antibiotics. PT OT ordered Social work consult for possible placement
[2020-07-12] MEDS: MONTELUKAST 10 MG TAB PO SCH (20:38)
[2020-07-12] MEDS: LATANOPROST 0.005% OPHTH DROPS 2.5 ML BTL RIGHT EYE SCH (20:44)
[2020-07-13] MEDS: HYDROcodone/APAP 10-325MG 1 EACH TAB PO PRN ×2 (00:14→10:19)
[2020-07-13] MEDS: ACETAMINOPHEN TAB 325 MG TAB PO SCH ×3 (00:15→11:52)
[2020-07-13] MEDS: IPRATROPIUM-ALBUTEROL 3 ML NEB INHALATION PRN ×3 (00:49→11:56)
[2020-07-13 04:45] LABS: Basophils % (A) 0 %; Eosinophils # (A) 0.2 k/uL (0-0.7); Eosinophils % (A) 3 %; HCT 40.7 % (34.0-46.0); HGB 12.8 gm/dL (11.4-16.0); Hypochromasia Slight; Lymphocytes # (A) 1.5 k/uL (1.0-4.8); Lymphocytes % (A) 22 %; MCH 30.2 pg (25.0-35.0); MCHC 31.4 g/dL (31.0-37.0); MCV 96.2 fL (80.0-100.0); Mean Platelet Volume 9.2; Monocytes # (A) 0.5 k/uL (0-1.0); Monocytes % (A) 7 %; Neutrophils # (A) 4.6 k/uL (1.3-7.7); Neutrophils % (A) 65 %; Platelet Count 121 k/uL (150-450); RBC 4.23 m/uL (3.80-5.40); RDW 13.6 % (11.5-15.5)
[2020-07-13 06:14] VITALS: BP 112/66; RESP 16; TEMP 97.6
[2020-07-13] MEDS ORDERED: Magnesium Replacement Protocol 1 EACH MISC MISCELLANE PRN (07:19)
[2020-07-13 08:21] VITALS: PULSE 68
--- NOTE | 2020-07-13 09:19 | P.PN ---
Subjective Progress Note Date: 07/13/20 Principal diagnosis: Abdominal pain early peritonitis versus early inflammatory changes due to mesenteric edema suspicious of peritonitis status post repair of strangulated right lower quadrant ventral hernia and small bowel resection with primary anastomosis Stable COPD oxygen dependent and nebulizer dependent Chronic hypoxic respiratory failure due to end-stage COPD Generalized anxiety disorder Chronic atrial fibrillation on anticoagulation Component of asthma and asthmatic bronchitis Peptic ulcer disease Peripheral neuropathy hypertension hypertensive cardiovascular disease 07/13/2020, patient seen and evaluated examined during the rounds sitting upright in the bed breathing comfortably appetite has been good tolerating by mouth well, patient remains on supplemental oxygen during the day, using nebulizer treatment 3-4 times a day, tolerated surgery fairly well, doing deep breathing exercise incentive spirometry, stable from pulmonary standpoint for discharge planning follow-up in office in 2-4 weeks 07/12/2020, patient seen and evaluated examined, doing well denies any chest pain breathing comfortably, patient is status post postop day #3 for robotic repair of strangulated right lower quadrant ventral hernia with small bowel obstruction and release where there is action, patient is tolerating by mouth well, afebrile, on supplemental oxygen at 2 L 07/11/2020, patient seen eval examined during the rounds labs reviewed medications reviewed, patient sitting upright in the bed breathing comfortably remains on 2 L oxygen, denies any chest pain, has been tolerating oral very well, July 10, 2020, patient seen eval examined during the rounds labs reviewed medications reviewed care plan discussed with the patient at length shortness of breath has been stable, patient underwent surgery postop day #1 underwent a robotic repair of strangulated right lower quadrant ventral hernia with small bowel resection and primary a stopped anastomosis, about 5 cm distal bowel was resected, patient is in good spread doing deep breathing exercises incentive spirometry 07/09/2020, patient seen eval examined patient is for surgery by Dr. Alford for hernia repair, respiratory standpoint remains stable 07/07/2020, patient seen eval reexamined, respiratory status remains stable, blood pressure slightly high, oxygen saturation is stable on supplemental oxygen, patient remains afebrile, and data saturation are 99% 2 L, patient underwent abdominal CAT scan which continue show partial or early small bowel obstruction [facility] general surgery is following 07/06/2020, patient seen eval examined during the rounds comfortable on 2-1/2 L oxygen denies any chest pain does get short of breath on activity and exertion, intermittent cough is present nonproductive dry, abdominal pain is stable but however intermittently happens during activity and certain been over in position, patient is being followed by surgical services, This is a 85-year-old female with history of end-stage COPD and chronic asthmatic bronchitis on home oxygen and nebulizer treatment, patient is home oxygen dependent, oxygen need has however remained stable, patient came into the hospital with 3-4 day history of intermittent lower abdominal pain intermittent loose stool, has been feeling very weak, however denies any cough or sputum production she has the shortness of breath which is not much change Objective - Vital Signs Vital signs: Vital Signs Temp 97.6 F 07/13/20 04:55 Pulse 68 07/13/20 08:21 Resp 16 07/13/20 04:55 BP 112/66 07/13/20 04:55 Pulse Ox 96 07/13/20 08:12 Intake & Output 07/12/20 07/13/20 07/13/20 18:59 06:59 18:59 Intake Total 750 236 Balance 750 236 Intake: Intake, IV Titration 50 Amount Levofloxacin 250Mg-D5w 50 Pmx 250 mg In Dextrose/ Water 1 50ml.bag @ 50 mls /hr IVPB Q24HR [facility] Rx#: [id number] Oral 700 236 Other: # Voids 1 1 - Exam - Constitutional General appearance: average body habitus, cooperative, disheveled - EENT Eyes: PERRLA Ears: bilateral: normal - Neck Neck: normal ROM Carotids: bilateral: upstroke normal Thyroid: bilateral: normal size - Respiratory Respiratory: bilateral: CTA, diminished - Cardiovascular Rhythm: regular Heart sounds: normal: S1, S2 - Gastrointestinal General gastrointestinal: Hypoactive bowel sounds, soft - Neurologic Neurologic: CNII-XII intact - Musculoskeletal Musculoskeletal: gait normal, generalized weakness, strength equal bilaterally - Psychiatric Psychiatric: A&O x's 3, appropriate affect, intact judgment & insight - Labs CBC & Chem 7: 07/13/20 04:11 07/12/20 07:47 Labs: Abnormal Lab Results - Last 24 Hours (Table) 07/12/20 07/13/20 Range/Units 07:47 04:11 Plt Count 121 L (150-450) k/uL Anion Gap 12.10 H (4.00-12.00) mmol/L BUN 33.0 H (9.0-27.0) mg/dL Est GFR (CKD-EPI)AfAm 36.7 L (60.0-200.0) Est GFR (CKD-EPI)NonAf 31.7 L (60.0-200.0) BUN/Creatinine Ratio 22.00 H (12.00-20.00) Ratio Calcium 8.4 L (8.7-10.3) mg/dL Magnesium 1.4 L (1.5-2.4) mg/dL Total Protein 5.1 L (6.2-8.2) g/dL Albumin 3.10 L (3.80-4.90) g/dL Albumin/Globulin Ratio 1.55 L (1.60-3.17) g/dL Assessment and Plan Assessment: Small bowel obstruction, with strangulated ventral wall hernia, status post repair of ventral hernia with small bowel resection Abdominal pain early peritonitis related to that latest CT showed evidence of small bowel obstruction Stable COPD oxygen dependent and nebulizer dependent Chronic hypoxic respiratory failure due to end-stage COPD Generalized anxiety disorder Chronic atrial fibrillation on anticoagulation Component of asthma and asthmatic bronchitis Peptic ulcer disease Peripheral neuropathy hypertension hypertensive cardiovascular disease Plan: Pain management DVT prophylaxis ontinue bronchodilators, as patient is not in COPD exacerbation so will hold on steroids. Continue breathing treatments supplemental oxygen deep breathing exercises Agree with discharge planning Time with Patient: Greater than 30
[2020-07-13] MEDS: METOPROLOL TARTRATE 50 MG TAB PO SCH (09:33)
[2020-07-13] MEDS: PANTOPRAZOLE 40 MG TABLET PO SCH (09:33)
[2020-07-13] MEDS: GABAPENTIN 300 MG CAP PO SCH (09:33)
[2020-07-13] MEDS: APIXABAN 2.5 MG TABLET PO SCH (09:33)
[2020-07-13] MEDS: CHOLECALCIFEROL 1,000 UNIT TAB PO SCH (09:33)
[2020-07-13] MEDS: LEVOFLOXACIN 250MG-D5W PMX 250 MG in DEXTROSE/WATER 1 50ML.BAG IVPB SCH ×2 (09:33→10:55)
[2020-07-13] MEDS: ASCORBIC ACID 500 MG TAB PO SCH (09:33)
[2020-07-13] MEDS: TAMSULOSIN 0.4 MG CAP.ER.24H PO SCH (09:33)
[2020-07-13] MEDS ORDERED: MAGNESIUM HYDROXIDE 2,400 MG/10 ML CUP PO ONE (10:13)
[2020-07-13] MEDS ORDERED: LACTULOSE 20 GM/30 ML CUP PO SCH (10:15)
[2020-07-13] MEDS: POTASSIUM CHLORIDE ER 10 MEQ TAB.ER.PRT PO SCH (10:38)
[2020-07-13] MEDS ORDERED: MAGNESIUM OXIDE 400 MG TAB PO STA (10:52)
[2020-07-13] MEDS: MAGNESIUM SULFATE-D5W PMX 1 GM in DEXTROSE/WATER 1 100ML.BAG IVPB SCH (10:55)
--- NOTE | 2020-07-13 11:04 | P.PN ---
<Juanita Mims - Last Filed: 07/13/20 10:57> Subjective Progress Note Date: 07/13/20 CHIEF COMPLAINT: Abdominal pain HISTORY OF PRESENT ILLNESS: Patient is postop day #4 status post Robotic repair of strangulated right lower quadrant ventral hernia with small bowel resection and primary anastomosis. Patient is sitting at bedside chair. She reports her pain is controlled. Patient denies any nausea or vomiting. She did have a bowel movement. She is afebrile. WBC 7.0 hemoglobin 12.8 magnesium 1.9 PHYSICAL EXAM: VITAL SIGNS: Reviewed GENERAL: Well-developed in no acute distress. HEENT: No sclera icterus. Extraocular movements grossly intact. Moist buccal mucosa. Head is atraumatic, normocephalic. Hears conversational speech. No nasal drainage. NECK: Supple without lymphadenopathy. CHEST: Non-labored respirations and equal bilateral excursions. CARDIOVASCULAR: Palpable 2+ radial pulses. ABDOMEN: Soft. Nondistended. Abdominal binder in place MUSCULOSKELETAL: No clubbing or cyanosis. NEUROLOGIC: No focal or lateralizing signs. Cranial nerves II through XII grossly intact. PSYCH: Appropriate affect. Alert and oriented to person, place and time. SKIN: Well perfused. Good skin turgor. ASSESSMENT: 1. Small bowel obstruction with infarction due to right lower quadrant ventral hernia status post Robotic repair of strangulated right lower quadrant ventral hernia with small bowel resection and primary anastomosis. 2. Chronic atrial fibrillation 3. History of pacemaker and AICD placement 4. History of chronic Hypoxic respiratory failure Due to end-stage COPD 5. Hypomagnesemia being replaced PLAN: -Patient can be discharged home from surgical standpoint -Added multivitamin with iron -Replace magnesium -GI prophylaxis Protonix and DVT prophylaxis subcu heparin Physician [employer] note has been reviewed by physician. Signing provider agrees with the documented findings, assessment, and plan of care. Objective - Vital Signs Vital signs: Vital Signs Temp 97.6 F 07/13/20 04:55 Pulse 68 07/13/20 08:21 Resp 16 07/13/20 04:55 BP 112/66 07/13/20 04:55 Pulse Ox 96 07/13/20 08:12 Intake & Output 07/12/20 07/13/20 07/13/20 18:59 06:59 18:59 Intake Total 750 236 Balance 750 236 Intake: Intake, IV Titration 50 Amount Levofloxacin 250Mg-D5w 50 Pmx 250 mg In Dextrose/ Water 1 50ml.bag @ 50 mls /hr IVPB Q24HR [facility] Rx#: [id number] Oral 700 236 Other: # Voids 1 1 - Labs CBC & Chem 7: 07/13/20 04:11 07/12/20 07:47 Labs: Abnormal Lab Results - Last 24 Hours (Table) 07/13/20 Range/Units 04:11 Plt Count 121 L (150-450) k/uL <Salina Coto N - Last Filed: 07/17/20 22:29> Subjective Patient seen and evaluated without moderate decrease in hemoglobin despite start of blood thinner. Patient stable for discharge once medically stable. Objective - Vital Signs Vital signs: Vital Signs Temp 97.6 F 07/13/20 04:55 Pulse 68 07/13/20 12:06 Resp 16 07/13/20 12:06 BP 112/66 07/13/20 04:55 Pulse Ox 96 07/13/20 08:12 - Labs CBC & Chem 7: 07/13/20 04:11 07/12/20 07:47 Assessment and Plan (1) Ventral hernia with obstruction Status: Acute Code(s): K43.6 - OTHER AND UNSP VENTRAL HERNIA WITH OBSTRUCTION, W/O GANGRENE SNOMED Code(s): 058845759 (2) COPD (chronic obstructive pulmonary disease) Status: Acute Code(s): J44.9 - CHRONIC OBSTRUCTIVE PULMONARY DISEASE, UNSPECIFIED SNOMED Code(s): 24653444 (3) Chronic anticoagulation Status: Acute Code(s): Z79.01 - ALF (CURRENT) USE OF ANTICOAGULANTS SNOMED Code(s): 259173159 (4) Congestive heart failure, diastolic, left, w/preserved LV function, NYHA class 4 Status: Acute Code(s): I50.30 - UNSPECIFIED DIASTOLIC (CONGESTIVE) HEART FAILURE SNOMED Code(s): 325679888
--- NOTE | 2020-07-13 11:23 | P.CONS ---
History of Present Illness - Reason for Consult Consult date: 07/13/20 wound care - History of Present Illness this is an 85-year-old patient has been seen by wound care however she does not make her weekly appointments. Patient was last seen06/26/2020 at the time where utilizing bsorptive silver to the site due to the amount of drainage she was having. patient states that she has been followingthe dressing changes as ordered with her home care agency. ulceration is due to venous insufficiency. She has had the ulceration for approximately 8 weeks at this time. She has history of CHF and renal disease. Review of Systems Review Of Systems: Constitutional: No fever, no chills, no night sweats. No weight change. No weakness, fatigue or lethargy. No daytime sleepiness. Integumentary:reports wounds, no lesions. No rash or pruritus. No unusual b ruising. No change in hair or nails. Past Medical History Past Medical History: Atrial Fibrillation, Asthma, Heart Failure, COPD, Hypertension, Thyroid Disorder History of Any Multi-Drug Resistant Organisms: None Reported Past Surgical History: AICD, Hysterectomy, Pacemaker, Tonsillectomy Additional Past Surgical History / Comment(s): urethral suspension, ectopic, thyroid biopsy, cataract, glaucoma sx AICD/Pacer implant done in Apr, cardiac ablation 05/27/2018 Past Anesthesia/Blood Transfusion Reactions: No Reported Reaction Type of Cardiac Device: Permanent Pacemaker, AICD Device Placement Date:: Apr 2018 Past Psychological History: No Psychological Hx Reported Smoking Status: Former smoker Past Alcohol Use History: None Reported Past Drug Use History: None Reported Medications and Allergies Home Medications Medication Instructions Recorded Confirmed Type Ascorbic Acid [Vitamin C] 500 mg PO DAILY 04/27/18 07/03/20 History Carboxymethylcellulose Sodium 1 drop BOTH EYES BID PRN 04/27/18 07/03/20 History [Refresh Tears] Cholecalciferol (Vitamin D3) 2,000 unit PO DAILY 04/27/18 07/03/20 History [Vitamin D3] Ipratropium/Albuterol Sulfate 1 puff INHALATION RT-QID PRN 04/27/18 07/03/20 History [Combivent Respimat Inhaler] Latanoprost [Xalatan 0.005%] 1 drop RIGHT EYE HS 04/27/18 07/03/20 History Montelukast [Singulair] 10 mg PO HS 04/27/18 07/03/20 History Apixaban [Eliquis] 2.5 mg PO BID tablet 05/07/18 07/03/20 Rx Bumetanide [BUMEX] 2 mg PO BID@0900,1600 #0 tab 05/31/18 07/03/20 Rx Metoprolol Tartrate [Lopressor] 50 mg PO BID tab 05/31/18 07/03/20 Rx Potassium Chloride 10 meq PO BID 04/01/20 07/03/20 History Vitamin E 400 mg PO DAILY 04/01/20 07/03/20 History HYDROcodone/APAP 10-325MG [[place] 1 each PO Q8H PRN tab 04/06/20 07/03/20 Rx 10-325] Pantoprazole [Protonix] 40 mg PO AC-BRKFST tablet. 04/06/20 07/03/20 Rx Gabapentin 300 mg PO QAM 07/03/20 07/03/20 History Gabapentin [Neurontin] 600 mg PO HS 07/03/20 07/03/20 History Ipratropium-Albuterol Nebulize 3 ml INHALATION RT-QID PRN 07/03/20 07/03/20 History [Duoneb 0.5 mg-3 mg/3 ml Soln] Multivitamin with Iron 1 each PO DAILY #30 tablet 07/13/20 Rx [Multivitamins with Iron] Allergies Allergy/AdvReac Type Severity Reaction Status Date / Time amlodipine Allergy Unknown Verified 07/03/20 13:58 benazepril [From Lotrel] Allergy Unknown Verified 07/03/20 13:58 cephalexin [From Keflex] Allergy Anaphylaxis Verified 07/03/20 13:58 Cephalosporins Allergy Anaphylaxis Verified 07/03/20 13:58 codeine Allergy Unknown Verified 07/03/20 13:58 Iodinated Contrast Media Allergy Anaphylaxis Verified 07/03/20 13:58 [Iodinated Contrast- Oral and IV Dye] nebivolol [From Bystolic] Allergy Unknown Verified 07/03/20 13:58 olmesartan [From Benicar] Allergy Unknown Verified 07/03/20 13:58 Penicillins Allergy Anaphylaxis Verified 07/03/20 13:58 Sulfa (Sulfonamide Allergy Anaphylaxis Verified 07/03/20 13:58 Antibiotics) apixaban [From Eliquis] AdvReac BONE PAIN Verified 07/03/20 13:58 clonidine AdvReac BLURRED Verified 07/03/20 13:58 VISION, DIZZY, SCRATCHY THROAT furosemide [From Lasix] AdvReac Nausea & Verified 07/03/20 13:58 Vomiting & Diarrhea hydralazine AdvReac CHILLS, Verified 07/03/20 13:58 SHAKING, LIGHT HEADED, FACE FLUSHED isosorbide [From Imdur] AdvReac Rapid Verified 07/03/20 13:58 Heart Rate labetalol AdvReac Dyspnea Verified 07/03/20 13:58 lisinopril AdvReac Nausea & Verified 07/03/20 13:58 Vomiting & Diarrhea/COUGH PAPER MEDICAL TAPE Allergy Unknown Uncoded 07/03/20 12:26 Physical Exam Vitals: Vital Signs Temp Pulse Pulse Resp BP Pulse Ox 07/13/20 08:21 68 07/13/20 08:12 66 96 07/13/20 04:55 97.6 F 69 16 112/66 98 07/13/20 01:01 65 07/13/20 00:51 65 07/12/20 19:35 98.0 F 60 18 122/60 98 07/12/20 11:27 97.9 F 59 L 18 130/82 97 Intake and Output 07/12/20 07/13/20 07/13/20 22:59 06:59 14:59 Intake Total 236 Balance 236 Intake: Oral 236 Other: # Voids 1 1 Weight 79.832 kg Physical exam: General Appearance: Alert, cooperative, no distress, appears stated age. Skin:Original cause of wound was Gradually Appeared. The wound is currently classified as a Full Thickness Without Exposed Support Structures wound with etiologies of Venous Leg Ulcer and Arterial Insufficiency Ulcer and is located on the Left,Medial Lower Leg. The wound measures 6.9cm length x 2.7cm width x 0.1cm depth; 14.632cm^2 area and 1.463cm^3 volume. The wound is limited to skin breakdown. There is no tunneling or undermining noted. There is a medium amount of serous drainage noted. The wound margin is indistinct and nonvisible. There is large (67-100%) red granulation within the wound bed. There is a small (1- 33%) amount of necrotic tissue within the wound bed including Adherent Slough. The periwound skin appearance exhibited: Scarring, Dry/Scaly, Hemosiderin Staining, Erythema. The periwound skin appearance did not exhibit: Maceration. The surrounding wound skin color is noted with erythema which is circumferential.all other Skin color, texture, tugor normal, no rashes or lesions. Neurologic: Alert oriented x3 Results CBC & Chem 7: 07/13/20 04:11 07/12/20 07:47 Labs: Abnormal Lab Results - Last 24 Hours (Table) 07/13/20 Range/Units 04:11 Plt Count 121 L (150-450) k/uL Assessment and Plan (1) Stasis edema with ulcer of left lower extremity Current Visit: No Status: Acute Code(s): I87.312 - CHRONIC VENOUS HYPERTENSION W ULCER OF L LOW EXTREM; L97.929 - NON-PRS CHRONIC ULC UNSP PRT OF L LOW LEG W UNSP SEVERITY SNOMED Code(s): 134888550 (2) Ulcer of left lower extremity with fat layer exposed Current Visit: No Status: Acute Code(s): L97.922 - NON-PRS CHR ULC UNSP PRT OF L LOW LEG W FAT LAYER EXPOSED SNOMED Code(s): 85559615 Plan: apply honey alginate, saline moistened gauze, dry gauze, rolled gauze secured paper tape. We'll utilize Abran wrap to help control any edema. The patient is discharged she can return to using absorptive silver as ordered with the wound care center previously. Patient should return to her weekly wound care visits and call to make an appointment upon discharge. Patient verbalized understanding. Thank you for consultation any questions please contact the wound care center DNP note has been reviewed and discussed with Dr. Garza and the impression and plan of care has been directed as dictated.
--- NOTE | 2020-07-13 11:24 | P.DS ---
Providers Date of admission: 07/03/20 15:51 Expected date of discharge: 07/13/20 Attending physician: Elham Kumar Consults: 07/04/20 09:23 Consult Physician Routine Consulting Provider: Polo Mitchell Consult Reason/Comments: SOB, known to patient Do you want consulting provider notified?: Yes 07/06/20 09:56 Consult Physician Routine Consulting Provider: Jordon Espino Consult Reason/Comments: weakness Do you want consulting provider notified?: Yes 07/08/20 15:22 Consult Physician Routine Consulting Provider: Salina Coto Consult Reason/Comments: pt preferable surgeon Do you want consulting provider notified?: Already Contacted Primary care physician: Elham Kumar [facility] Course: Discharge diagnosis 1. Acute abdominal pain secondary to peritonitis versus early bleaching changes due to mesenteric edema suspicious of peritonitis. CT of abdomen completed please see above results. Surgical services have been consulted. Patient unde rwent repair of strangulated right lower quadrant ventral hernia with small bowel resection and primary anastomosis on 07/09/2020. Patient did have bowel movement this AM. Discussed case with surgical services. Patient may be discharged home no need for antibiotic 2. Acute exacerbation of COPD. Dr. Mitchell has been consulted 3. 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 Chronic atrial fibrillation on eliquis. eliquis on hold per surgery 5. History of pacemaker and AICD placement. Cardiology services have been consulted 6. Peptic ulcer disease 7. History of peripheral neuropathy 8. Generalized anxiety disorder 9. Essential hypertension 10. Wound to left lower infection many. Wound care services evaluated will follow-up outpatient Hospital course This is an 85-year-old female patient who presented to the ER with abdominal pain that had been occurring intermittently over the past few days patient reports the pain was sharp in nature. Patient reports she had decreased appetite. Additional medical history includes A. fib in which she is on eliquis, asthma, heart failure, COPD, hypertension, thyroid disorder, pacemaker, AICD and ex-smoker. Patient also reports she's had some wheezing. Chest x-ray completed showing underlying emphysema. Interstitial changes again noted within the lungs progression of thoracic compression fracture likely T6. Abdominal x- ray completed showing suspect there may be a small hernia in the right lower quadrant some local inflammation changes present there may be herniation of fat with stranding ablation no definitive bowel loop contained at this level. Some mesenteric edema or inflammatory change correlate for possible peritonitis small right pleural effusion cholelithiasis hepatic steatosis diverticulitis. Correlate to exclude colitis. Patient started on Flagyl and Levaquin and surgical consult placed. 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 Cardiology services also consulted due to cardiac history. At this time patient is resting comfortably in bed. Patient reports some abdominal discomfort and tenderness to palpation. Patient denies any chest pain. Does report some shortness of breath. Patient denies nausea vomiting or diarrhea. Patient denies any urinary burning or frequency On 07/05/2020 patient was seen and examined on the medical floor she is alert and oriented 3 in no apparent distress pain in the right lower quadrant is improving gradually she is tolerating diet well, she has not had a bowel movement in the last 3-4 days, she is complaining of generalized weakness otherwise she denies any complaints there is no fever or chills no headache or dizziness no chest pain no shortness of breath no cough no nausea or vomiting no diarrhea no blood in the stools no burning with urination no frequency or urgency no hematuria On 07/06/2020 patient is alert and oriented 3. Patient reports abdominal pain has improved still some tenderness to palpation and movement. Patient has been tolerating diet and appetite has increased. Surgical services has no plans for surgical intervention at this time. Dr. Brown has been consulted for discharge planning. Did discuss case with case management at this time it is recommended for rehab upon discharge. Patient denies chest pain or shortness breath. Patient denies nausea vomiting or diarrhea. Patient denies any urinary burning or frequency On 07/07/2020 patient was seen and examined on the medical floor she is alert and oriented 3 of more abdominal pain today was nausea and 1 episode of vomiting this morning otherwise she denies any complaints there is no fever or chills no headache or dizziness no chest pain no shortness of breath no cough, no diarrhea no blood in the stools no burning with urination no frequency or urgency and no hematuria. At this time will proceed with repeating computed tomography scan of the abdomen and pelvis will use oral contrast, but avoid IV contrast at this time due to elevated BUN and creatinine, will notify surgery of worsening abdominal symptoms. On 07/08/2020 patient is alert and oriented 3. CT of abdomen and pelvis completed showing partial or early complete small bowel obstruction. Per surgical service is planning surgical intervention tomorrow due to eliquis. Patient remains with NG tube LIS and nothing by mouth. Patient is having some abdominal pain. Patient denies any chest pain or shortness breath. On 07/09/2020 patient was seen and examined on the medical floor she is alert and oriented 3 in no apparent distress she is still complaining of right lower quadrant abdominal pain she is scheduled today for surgery in regard to hernia and small bowel obstruction, otherwise patient denies any complaints there is no fever or chills no headache or dizziness no chest pain no shortness of breath no cough no nausea or vomiting no diarrhea and no urinary symptoms On 07/10/2020 patient was seen and examined on the medical floor she is alert and oriented 3 in no apparent distress she is maintained on full liquid diet and she is tolerating well there is no nausea or vomiting no abdominal pain, she stated that she is passing some gas there has been no bowel movements since surgery, otherwise she denies any complaints there is no fever or chills no headache or dizziness no chest pain no shortness of breath no cough and no urinary symptoms. She is postoperative day #1 On patient is alert and oriented X3. Patient has been tolerating diet. passing gas no bowel movement. Denies any chest pain or shortness of breath. Denies any urinary burning or frequency. Denies any nausea, vomiting or diarrhea On 07/12/2020 patient was seen and examined on the medical floor she is alert and oriented 3 in no distress there is no fever or chills no headache or dizziness no chest pain no shortness of breath no cough no nausea or vomiting no diarrhea no blood in the stoolsno abdominal pain and no urinary symptoms, patient is tolerating diet well, she is able to ambulate, continue current care possible discharge to home tomorrow. On 07/13/2020 patient's alert and oriented 3. Patient is very eager to go home refusing ECF placement. Patient did have a BM this a.m. discussed case with surgical service patient discharged home with no antibiotics. Patient will follow-up in wound care clinic for left lower extremity. At this time patient denies chest pain. Patient denies nausea vomiting diarrhea. Patient denies urinary burning or frequency Patient Condition at Discharge: Stable Plan - Discharge Summary Discharge Rx Participant: No New Discharge Prescriptions: New Multivitamin with Iron [Multivitamins with Iron] 1 each PO DAILY #30 tablet Tamsulosin [Flomax] 0.4 mg PO PC-BRKFST 30 Days #30 cap.er.24h Continue Ascorbic Acid [Vitamin C] 500 mg PO DAILY Cholecalciferol (Vitamin D3) [Vitamin D3] 2,000 unit PO DAILY Carboxymethylcellulose Sodium [Refresh Tears] 1 drop BOTH EYES BID PRN PRN Reason: dry eyes Montelukast [Singulair] 10 mg PO HS Latanoprost [Xalatan 0.005%] 1 drop RIGHT EYE HS Ipratropium/Albuterol Sulfate [Combivent Respimat Inhaler] 1 puff INHALATION RT-QID PRN PRN Reason: Shortness Of Breath Apixaban [Eliquis] 2.5 mg PO BID tablet Bumetanide [BUMEX] 2 mg PO BID@0900,1600 #0 tab Metoprolol Tartrate [Lopressor] 50 mg PO BID tab Potassium Chloride 10 meq PO BID Vitamin E 400 mg PO DAILY HYDROcodone/APAP 10-325MG [[place] 10-325] 1 each PO Q8H PRN tab PRN Reason: Pain Pantoprazole [Protonix] 40 mg PO AC-BRKFST tablet. Gabapentin [Neurontin] 600 mg PO HS Gabapentin 300 mg PO QAM Ipratropium-Albuterol Nebulize [Duoneb 0.5 mg-3 mg/3 ml Soln] 3 ml INHALATION RT-QID PRN PRN Reason: Shortness Of Breath Discharge Medication List Ascorbic Acid [Vitamin C] 500 mg PO DAILY 04/27/18 [History] Carboxymethylcellulose Sodium [Refresh Tears] 1 drop BOTH EYES BID PRN 04/27/18 [History] Cholecalciferol (Vitamin D3) [Vitamin D3] 2,000 unit PO DAILY 04/27/18 [History] Ipratropium/Albuterol Sulfate [Combivent Respimat Inhaler] 1 puff INHALATION RT- QID PRN 04/27/18 [History] Latanoprost [Xalatan 0.005%] 1 drop RIGHT EYE HS 04/27/18 [History] Montelukast [Singulair] 10 mg PO HS 04/27/18 [History] Apixaban [Eliquis] 2.5 mg PO BID tablet 05/07/18 [Rx] Bumetanide [BUMEX] 2 mg PO BID@0900,1600 #0 tab 05/31/18 [Rx] Metoprolol Tartrate [Lopressor] 50 mg PO BID tab 05/31/18 [Rx] Potassium Chloride 10 meq PO BID 04/01/20 [History] Vitamin E 400 mg PO DAILY 04/01/20 [History] HYDROcodone/APAP 10-325MG [[place] 10-325] 1 each PO Q8H PRN tab 04/06/20 [Rx] Pantoprazole [Protonix] 40 mg PO AC-BRKFST tablet. 04/06/20 [Rx] Gabapentin 300 mg PO QAM 07/03/20 [History] Gabapentin [Neurontin] 600 mg PO HS 07/03/20 [History] Ipratropium-Albuterol Nebulize [Duoneb 0.5 mg-3 mg/3 ml Soln] 3 ml INHALATION RT-QID PRN 07/03/20 [History] Multivitamin with Iron [Multivitamins with Iron] 1 each PO DAILY #30 tablet 07/13/20 [Rx] Tamsulosin [Flomax] 0.4 mg PO PC-BRKFST 30 Days #30 cap.er.24h 07/13/20 [Rx] Follow up Appointment(s)/Referral(s): Salina Coto MD [STAFF PHYSICIAN] - 07/17/20 [facility], [NON-STAFF] - Elham Kumar MD [Primary Care Provider] - 1-2 days Polo Mitchell MD [STAFF PHYSICIAN] - 1 Week Activity/Diet/Wound Care/Special Instructions: Lace: 12 - risk for readmission to the hospital Wear abdominal binder at all times for comfort. No lifting over 4 pounds in 4 weeks until Aug 06. January shower. No bath tub soaks for two weeks until Jul 23 Diet regular Discharge/Stand Alone Forms: [facility] The Home
[2020-07-13] MEDS ORDERED: LEVOFLOXACIN 500 MG TAB PO SCH (12:30)
== END 2020-07-13 13:15 | disposition home health service (06) | DRG 329 ==
LOC: EC 12:06 → 4SSUR 15:51 → 5NMEDONC 07-11 16:08
PROVIDERS: ADMIT Internal Medicine; ATTEND Internal Medicine
PROC: 0DB84ZZ Excision of Small Intestine, Percutaneous Endoscopic Approach (ICD-10-PCS; 2020-07-09)
PROC: 8E0W4CZ Robotic Assisted Procedure of Trunk Region, Percutaneous Endoscopic Approach (ICD-10-PCS; 2020-07-09)
PROC: 0WQF4ZZ Repair Abdominal Wall, Percutaneous Endoscopic Approach (ICD-10-PCS; principal; 2020-07-09 13:00)
DX: K43.6 Other and unspecified ventral hernia with obstruction, without gangrene (principal); K55.029 Acute infarction of small intestine, extent unspecified; I50.33 Acute on chronic diastolic (congestive) heart failure; K65.9 Peritonitis, unspecified; J96.11 Chronic respiratory failure with hypoxia; N17.9 Acute kidney failure, unspecified; I48.20 Chronic atrial fibrillation, unspecified; I83.228 Varicose veins of left lower extremity with both ulcer of other part of lower extremity and inflammation; L97.822 Non-pressure chronic ulcer of other part of left lower leg with fat layer exposed; M48.54XA Collapsed vertebra, not elsewhere classified, thoracic region, initial encounter for fracture; L03.119 Cellulitis of unspecified part of limb; I27.20 Pulmonary hypertension, unspecified; I49.5 Sick sinus syndrome; I11.0 Hypertensive heart disease with heart failure; K76.0 Fatty (change of) liver, not elsewhere classified; Z99.81 Dependence on supplemental oxygen; J43.9 Emphysema, unspecified; E83.42 Hypomagnesemia; G62.9 Polyneuropathy, unspecified; I07.1 Rheumatic tricuspid insufficiency; K44.9 Diaphragmatic hernia without obstruction or gangrene; K80.20 Calculus of gallbladder without cholecystitis without obstruction; K57.30 Diverticulosis of large intestine without perforation or abscess without bleeding; F41.1 Generalized anxiety disorder; H40.9 Unspecified glaucoma; E03.9 Hypothyroidism, unspecified; R33.9 Retention of urine, unspecified; G89.4 Chronic pain syndrome; K21.9 Gastro-esophageal reflux disease without esophagitis; R53.81 Other malaise; E66.3 Overweight; Z68.28 Body mass index [BMI] 28.0-28.9, adult; Z71.3 Dietary counseling and surveillance; Z79.01 Long term (current) use of anticoagulants; Z79.899 Other long term (current) drug therapy; Z87.891 Personal history of nicotine dependence; Z90.710 Acquired absence of both cervix and uterus; Z87.42 Personal history of other diseases of the female genital tract; Z95.810 Presence of automatic (implantable) cardiac defibrillator; Z87.11 Personal history of peptic ulcer disease; Z87.448 Personal history of other diseases of urinary system; Z90.89 Acquired absence of other organs; Z98.49 Cataract extraction status, unspecified eye; Z85.59 Personal history of malignant neoplasm of other urinary tract organ; Z98.890 Other specified postprocedural states; Z88.5 Allergy status to narcotic agent; Z88.0 Allergy status to penicillin; Z88.2 Allergy status to sulfonamides; Z88.8 Allergy status to other drugs, medicaments and biological substances; Z88.1 Allergy status to other antibiotic agents; Z91.041 Radiographic dye allergy status; Z82.49 Family history of ischemic heart disease and other diseases of the circulatory system
CPT/HCPCS: 36415; 64488; 71045; 71046; 74019; 74176; 74177; 80048; 80053; 81001; 83605; 83690; 83735; 83880; 84100; 85025; 85610; 85730; 87040; 88302; 88307; 93005; 94640; 94760; 96365; 96375; 99285

== ENCOUNTER 2020-07-18 14:58 | Inpatient (IN) | payer MEDICARE ==
[2020-07-18 15:24] LABS: Basophils # (A) 0.1 k/uL (0-0.2); Basophils % (A) 1 %; Eosinophils # (A) 0.7 k/uL (0-0.7); Eosinophils % (A) 7 %; HCT 36.2 % (34.0-46.0); HGB 11.6 gm/dL (11.4-16.0); Lymphocytes # (A) 1.6 k/uL (1.0-4.8); Lymphocytes % (A) 16 %; MCH 30.6 pg (25.0-35.0); MCV 95.6 fL (80.0-100.0); Mean Platelet Volume 8.5; Monocytes # (A) 0.6 k/uL (0-1.0); Monocytes % (A) 6 %; Neutrophils # (A) 6.5 k/uL (1.3-7.7); Neutrophils % (A) 68 %; RBC 3.79 m/uL (3.80-5.40); RDW 14.5 % (11.5-15.5); WBC 9.6 k/uL (3.8-10.6)
[2020-07-18 15:39] LABS: INR 1.3 (<1.2); Partial Thromboplastin Time 24.8 sec (22.0-30.0); Prothrombin Time 13.4 sec (9.0-12.0)
[2020-07-18 15:41] LABS: ALT 11 U/L (4-34); AST 22 U/L (14-36); African American GFR (CKD) 51 (>60 ml/min/1.73 sqM); Alkaline Phosphatase 79 U/L (38-126); Anion Gap 4 mmol/L; Blood Urea Nitrogen 28 mg/dL (7-17); Calcium 8.6 mg/dL (8.4-10.2); Carbon Dioxide 32 mmol/L (22-30); Chloride 101 mmol/L (98-107); Creatine Kinase <20 U/L (30-135); Glucose 136 mg/dL (74-99); Magnesium 1.9 mg/dL (1.6-2.3); Non-African American GFR(CKD) 45 (>60 ml/min/1.73 sqM); Potassium 4.1 mmol/L (3.5-5.1); Sodium 137 mmol/L (137-145); Total Bilirubin 0.9 mg/dL (0.2-1.3); Total Protein 5.6 g/dL (6.3-8.2)
[2020-07-18 15:43] LABS: D-Dimer 1.25 mg/L FEU (<0.60)
[2020-07-18 15:45] LABS: Platelet Count 273 k/uL (150-450)
--- NOTE | 2020-07-18 15:55 | ED ---
SOB HPI - General Chief Complaint: Shortness of Breath Stated Complaint: KATELIN Time Seen by Provider: 07/18/20 15:00 Source: EMS, RN notes reviewed, old records reviewed Mode of arrival: EMS Limitations: no limitations - History of Present Illness Initial Comments: is a 85-year-old female with a history of a hernia repair after bowel resection for an internal hernia who presents by EMS today with complaints of shortness of breath. She has exertional dyspnea. She also states she's had no fevers chills nausea vomiting sweats cough or phlegm production no problem with urination. MD Complaint: shortness of breath - Related Data Home Medications Medication Instructions Recorded Confirmed Ascorbic Acid [Vitamin C] 500 mg PO DAILY 04/27/18 07/18/20 Carboxymethylcellulose Sodium 1 drop BOTH EYES BID PRN 04/27/18 07/18/20 [Refresh Tears] Cholecalciferol (Vitamin D3) 2,000 unit PO DAILY 04/27/18 07/18/20 [Vitamin D3] Ipratropium/Albuterol Sulfate 1 puff INHALATION RT-QID PRN 04/27/18 07/18/20 [Combivent Respimat Inhaler] Latanoprost [Xalatan 0.005%] 1 drop RIGHT EYE HS 04/27/18 07/18/20 Montelukast [Singulair] 10 mg PO HS 04/27/18 07/18/20 Potassium Chloride 10 meq PO DAILY 04/01/20 07/18/20 Vitamin E 400 mg PO DAILY 04/01/20 07/18/20 Gabapentin 300 mg PO DAILY 07/03/20 07/18/20 Gabapentin [Neurontin] 600 mg PO HS 07/03/20 07/18/20 Ipratropium-Albuterol Nebulize 3 ml INHALATION RT-QID PRN 07/03/20 07/18/20 [Duoneb 0.5 mg-3 mg/3 ml Soln] Bumetanide [BUMEX] 2 mg PO BID@0900,1600 07/18/20 07/18/20 HYDROcodone/APAP 10-325MG [[place] 1 tab PO Q8H PRN 07/18/20 07/18/20 10-325] Multivitamin with Iron 1 tab PO DAILY 07/18/20 07/18/20 [Multivitamins with Iron] Previous Rx's Medication Instructions Recorded Apixaban [Eliquis] 2.5 mg PO BID tablet 05/07/18 Metoprolol Tartrate [Lopressor] 50 mg PO BID tab 05/31/18 Pantoprazole [Protonix] 40 mg PO AC-BRKFST tablet. 04/06/20 Allergies Allergy/AdvReac Type Severity Reaction Status Date / Time amlodipine Allergy Unknown Verified 07/18/20 16:06 benazepril [From Lotrel] Allergy Unknown Verified 07/18/20 16:06 cephalexin [From Keflex] Allergy Anaphylaxis Verified 07/18/20 16:06 Cephalosporins Allergy Anaphylaxis Verified 07/18/20 16:06 codeine Allergy Unknown Verified 07/18/20 16:06 Iodinated Contrast Media Allergy Anaphylaxis Verified 07/18/20 16:06 [Iodinated Contrast- Oral and IV Dye] nebivolol [From Bystolic] Allergy Unknown Verified 07/18/20 16:06 olmesartan [From Benicar] Allergy Unknown Verified 07/18/20 16:06 Penicillins Allergy Anaphylaxis Verified 07/18/20 16:06 Sulfa (Sulfonamide Allergy Anaphylaxis Verified 07/18/20 16:06 Antibiotics) apixaban [From Eliquis] AdvReac BONE PAIN Verified 07/18/20 16:06 clonidine AdvReac BLURRED Verified 07/18/20 16:06 VISION, DIZZY, SCRATCHY THROAT furosemide [From Lasix] AdvReac Nausea & Verified 07/18/20 16:06 Vomiting & Diarrhea hydralazine AdvReac CHILLS, Verified 07/18/20 16:06 SHAKING, LIGHT HEADED, FACE FLUSHED isosorbide [From Imdur] AdvReac Rapid Verified 07/18/20 16:06 Heart Rate labetalol AdvReac Dyspnea Verified 07/18/20 16:06 lisinopril AdvReac Nausea & Verified 07/18/20 16:06 Vomiting & Diarrhea/COUGH PAPER MEDICAL TAPE Allergy Unknown Uncoded 07/18/20 16:06 Review of Systems ROS Statement: Those systems with pertinent positive or pertinent negative responses have been documented in the HPI. ROS Other: All systems not noted in ROS Statement are negative. Past Medical History Past Medical History: Atrial Fibrillation, Asthma, Heart Failure, COPD, Hypertension, Thyroid Disorder History of Any Multi-Drug Resistant Organisms: None Reported Past Surgical History: AICD, Hysterectomy, Pacemaker, Tonsillectomy Additional Past Surgical History / Comment(s): urethral suspension, ectopic, thyroid biopsy, cataract, glaucoma sx AICD/Pacer implant done in Apr, cardiac ablation 05/27/2018 Past Anesthesia/Blood Transfusion Reactions: No Reported Reaction Type of Cardiac Device: Permanent Pacemaker, AICD Device Placement Date:: Apr 2018 Past Psychological History: No Psychological Hx Reported Smoking Status: Former smoker Past Alcohol Use History: None Reported Past Drug Use History: None Reported General Exam - General Exam Comments Initial Comments: his is a well-developed well-nourished awake alert oriented 3 female Limitations: no limitations General appearance: alert, in no apparent distress Head exam: Present: atraumatic, normocephalic, normal inspection Eye exam: Present: normal appearance, PERRL, EOMI. Absent: scleral icterus, conjunctival injection, periorbital swelling ENT exam: Present: mucous membranes dry Neck exam: Present: normal inspection. Absent: tenderness, meningismus, lymphadenopathy Respiratory exam: Present: normal lung sounds bilaterally. Absent: respiratory distress, wheezes, rales, rhonchi, stridor Cardiovascular Exam: Present: regular rate, normal rhythm, normal heart sounds. Absent: systolic murmur, diastolic murmur, rubs, gallop, clicks GI/Abdominal exam: Present: soft, normal bowel sounds. Absent: distended, tenderness, guarding, rebound, rigid Extremities exam: Present: normal inspection, full ROM, normal capillary refill. Absent: tenderness, pedal edema, joint swelling, calf tenderness Back exam: Present: normal inspection Neurological exam: Present: alert, oriented X3, CN II-XII intact Psychiatric exam: Present: normal affect, normal mood Skin exam: Present: warm, dry, intact, normal color. Absent: rash Course Vital Signs 07/18/20 07/18/20 07/18/20 14:59 15:29 16:18 Temperature 98.0 F Pulse Rate 61 63 Respiratory 16 24 16 Rate Blood Pressure 140/98 127/58 O2 Sat by Pulse 96 100 Oximetry 07/18/20 18:06 Temperature 98.3 F Pulse Rate 60 Respiratory 16 Rate Blood Pressure 135/72 O2 Sat by Pulse 100 Oximetry Procedures - [facility] Protocol (Time Out) Nurse: Shereen Alex Medical Decision Making - Medical Decision Making I did discuss findings with the patient and with Dr. Kumar. I did reevaluate patient several occasions she'll be admitted for inpatient treatment of CHF and COPD exacerbation. Of his pulmonary emboli. - Lab Data Result diagrams: 07/18/20 15:12 07/18/20 15:12 Lab Results 07/18/20 07/18/20 07/18/20 Range/Units 15:12 15:12 15:12 WBC 9.6 (3.8-10.6) k/uL RBC 3.79 L (3.80-5.40) m/uL Hgb 11.6 (11.4-16.0) gm/dL Hct 36.2 (34.0-46.0) % MCV 95.6 (80.0-100.0) fL MCH 30.6 (25.0-35.0) pg MCHC 32.0 (31.0-37.0) g/dL RDW 14.5 (11.5-15.5) % Plt Count 273 D (150-450) k/uL MPV 8.5 Neutrophils % 68 % Lymphocytes % 16 % Monocytes % 6 % Eosinophils % 7 % Basophils % 1 % Neutrophils # 6.5 (1.3-7.7) k/uL Lymphocytes # 1.6 (1.0-4.8) k/uL Monocytes # 0.6 (0-1.0) k/uL Eosinophils # 0.7 (0-0.7) k/uL Basophils # 0.1 (0-0.2) k/uL PT 13.4 H (9.0-12.0) sec INR 1.3 H (<1.2) APTT 24.8 (22.0-30.0) sec D-Dimer 1.25 H (<0.60) mg/L FEU Sodium 137 (137-145) mmol/L Potassium 4.1 (3.5-5.1) mmol/L Chloride 101 (98-107) mmol/L Carbon Dioxide 32 H (22-30) mmol/L Anion Gap 4 mmol/L BUN 28 H (7-17) mg/dL Creatinine 1.14 H (0.52-1.04) mg/dL Est GFR (CKD-EPI)AfAm 51 (>60 ml/min/1.73 sqM) Est GFR (CKD-EPI)NonAf 45 (>60 ml/min/1.73 sqM) Glucose 136 H (74-99) mg/dL Plasma Lactic Acid Je (0.7-2.0) mmol/L Calcium 8.6 (8.4-10.2) mg/dL Magnesium 1.9 (1.6-2.3) mg/dL Total Bilirubin 0.9 (0.2-1.3) mg/dL AST 22 (14-36) U/L ALT 11 (4-34) U/L Alkaline Phosphatase 79 (38-126) U/L Creatine Kinase <20 L (30-135) U/L Troponin I (0.000-0.034) ng/mL NT-Pro-B Natriuret Pep pg/mL Total Protein 5.6 L (6.3-8.2) g/dL Albumin 3.0 L (3.5-5.0) g/dL 07/18/20 07/18/20 07/18/20 Range/Units 15:12 15:12 15:12 WBC (3.8-10.6) k/uL RBC (3.80-5.40) m/uL Hgb (11.4-16.0) gm/dL Hct (34.0-46.0) % MCV (80.0-100.0) fL MCH (25.0-35.0) pg MCHC (31.0-37.0) g/dL RDW (11.5-15.5) % Plt Count (150-450) k/uL MPV Neutrophils % % Lymphocytes % % Monocytes % % Eosinophils % % Basophils % % Neutrophils # (1.3-7.7) k/uL Lymphocytes # (1.0-4.8) k/uL Monocytes # (0-1.0) k/uL Eosinophils # (0-0.7) k/uL Basophils # (0-0.2) k/uL PT (9.0-12.0) sec INR (<1.2) APTT (22.0-30.0) sec D-Dimer (<0.60) mg/L FEU Sodium (137-145) mmol/L Potassium (3.5-5.1) mmol/L Chloride (98-107) mmol/L Carbon Dioxide (22-30) mmol/L Anion Gap mmol/L BUN (7-17) mg/dL Creatinine (0.52-1.04) mg/dL Est GFR (CKD-EPI)AfAm (>60 ml/min/1.73 sqM) Est GFR (CKD-EPI)NonAf (>60 ml/min/1.73 sqM) Glucose (74-99) mg/dL Plasma Lactic Acid Je 1.6 (0.7-2.0) mmol/L Calcium (8.4-10.2) mg/dL Magnesium (1.6-2.3) mg/dL Total Bilirubin (0.2-1.3) mg/dL AST (14-36) U/L ALT (4-34) U/L Alkaline Phosphatase (38-126) U/L Creatine Kinase (30-135) U/L Troponin I <0.012 (0.000-0.034) ng/mL NT-Pro-B Natriuret Pep 6260 pg/mL Total Protein (6.3-8.2) g/dL Albumin (3.5-5.0) g/dL - EKG Data -: EKG Interpreted by Me EKG Comments: Atrial fibrillation rate 65 QRS 1:30 QT since QTC [id number] nonspecific int erventricular block PVCs notednonspecific T-wave - Radiology Data Radiology results: report reviewed (I did review the imaging and report no definitive acute findings no PE. I do see increased pulmonary vascular markings. Please see the complete report), image reviewed Disposition Clinical Impression: Systolic congestive heart failure, Acute exacerbation of chronic obstructive airways disease Disposition: ADMITTED IP TO THIS HOSP Condition: Fair Referrals: Elham Kumar MD [Primary Care Provider] - 1-2 days
--- NOTE | 2020-07-18 15:56 | XR ---
EXAMINATION TYPE: XR chest 2V DATE OF EXAM: 07/18/2020 COMPARISON: Prior chest x-ray 07/07/2020, CT 04/01/2020 HISTORY: Difficulty breathing TECHNIQUE: Frontal and lateral views of the chest are obtained. FINDINGS: There are prominent lung volumes, increased AP diameter chest. There is a generator in the left pectoral region, leads are present in the right atrium and ventricle. Midthoracic vertebral body shows compression fracture. Prominence of pulmonary artery consistent with pulmonary artery hyperten nerissa. Marked arthropathy noted within the shoulders. Patient is rotated. There is no focal air space opacity, pleural effusion, or pneumothorax seen. The cardiac silhouette size is within normal limits . The osseous structures are intact. IMPRESSION: No acute cardiopulmonary process. Emphysema. Additional findings above.
[2020-07-18] MEDS ORDERED: FAMOTIDINE 20 MG/2 ML VIAL IV STA (17:17)
[2020-07-18] MEDS ORDERED: diphenhydrAMINE 50 MG/ML 1 ML VIAL IVP STA (17:17)
[2020-07-18] MEDS ORDERED: methylPREDNISolone SOD SUCCI 125 MG/2 ML VIAL IV STA (17:17)
[2020-07-18] MEDS ORDERED: FUROSEMIDE 10 MG/ML 4 ML VIAL IV STA (18:58)
--- NOTE | 2020-07-18 19:13 | CT ---
EXAMINATION TYPE: CT angio chest DATE OF EXAM: 07/18/2020 COMPARISON: 04/01/2020 HISTORY: Shortness of breath. Post OP colon resection. CT DLP: 343 mGycm Automated exposure control for dose reduction was used. CONTRAST: Performed with IV Contrast, patient injected with 100 mL of Isovue 370. There are 3-D post processed images. There is pulmonary emphysema. There is coarse interstitial density throughout the lungs. There is ple ural thickening at the right lung base. Heart is top normal in size. There is no pericardial effusion . There are no hilar masses. There is no mediastinal adenopathy. Thoracic aorta is atheromatous. Ascend ing aorta measures 3.4 cm. I see no filling defects in the pulmonary arteries. There is thoracic kyphotic deformity with anterior wedging of T7 and T6 vertebra up to 60%. IMPRESSION: No evidence of pulmonary embolism. COPD and pulmonary fibrosis. There are thoracic compression fractu res that have progressed significantly compared to old exam. There is new pleural thickening at the r ight lung base compared to old exam.
[2020-07-18] MEDS ORDERED: ARTIFICIAL TEARS-HYPROMELLOSE DROPS 15 ML BTL BOTH EYES PRN (19:29)
[2020-07-18] MEDS ORDERED: IPRATROPIUM-ALBUTEROL 3 ML NEB INHALATION SCH (20:00)
[2020-07-18] MEDS ORDERED: IPRATROPIUM-ALBUTEROL 3 ML NEB INHALATION PRN (20:22)
[2020-07-18] MEDS: MONTELUKAST 10 MG TAB PO SCH (21:34)
[2020-07-18] MEDS: GABAPENTIN 300 MG CAP PO SCH (21:35)
[2020-07-18] MEDS: APIXABAN 2.5 MG TABLET PO SCH (21:35)
[2020-07-18] MEDS: METOPROLOL TARTRATE 50 MG TAB PO SCH (21:35)
[2020-07-18] MEDS: LATANOPROST 0.005% OPHTH DROPS 2.5 ML BTL RIGHT EYE SCH (21:56)
[2020-07-19] MEDS: HYDROcodone/APAP 10-325MG 1 EACH TAB PO PRN ×2 (04:16→16:22)
[2020-07-19] MEDS: methylPREDNISolone SOD SUCCI 125 MG/2 ML VIAL IV SCH ×4 (07:09→17:59)
[2020-07-19] MEDS: IPRATROPIUM-ALBUTEROL 3 ML NEB INHALATION SCH ×4 (07:17→18:58)
[2020-07-19] MEDS: PANTOPRAZOLE 40 MG TABLET PO SCH (07:51)
[2020-07-19] MEDS: METOPROLOL TARTRATE 50 MG TAB PO SCH ×2 (09:12→21:57)
[2020-07-19] MEDS: ASCORBIC ACID 500 MG TAB PO SCH (09:12)
[2020-07-19] MEDS: MULTIVITAMINS, THERA 1 EACH TAB PO SCH (09:13)
[2020-07-19] MEDS: CHOLECALCIFEROL 1,000 UNIT TAB PO SCH (09:13)
[2020-07-19] MEDS: APIXABAN 2.5 MG TABLET PO SCH ×2 (09:14→21:58)
[2020-07-19] MEDS: VITAMIN E (DL,TOCOPHERYL ACET) 400 UNIT CAP PO SCH (09:15)
[2020-07-19] MEDS: BUMETANIDE 1 MG TAB PO SCH ×2 (09:16→17:58)
[2020-07-19] MEDS: GABAPENTIN 300 MG CAP PO SCH ×2 (09:16→21:57)
[2020-07-19] MEDS: FUROSEMIDE 10 MG/ML 4 ML VIAL IV SCH ×2 (10:09→21:57)
[2020-07-19] MEDS: diphenhydrAMINE 25 MG CAP PO SCH ×4 (10:09→21:58)
[2020-07-19] MEDS: POTASSIUM CHLORIDE ER 10 MEQ TAB.ER.PRT PO SCH (10:10)
--- NOTE | 2020-07-19 17:30 | P.HPIM ---
History of Present Illness H&P Date: 07/19/20 Susan Bhatt, is an 85-year-old female who was recently admitted to [facility] with abdominal pain and evidence of bowel obstruction she underwent hernia surgery with Dr. Coto, she was discharged home in good condition however she started developing worsening shortness of breath and today she decided to call EMS and come back to the emergency room due to severe dyspnea. She was evaluated in the emergency room her vital exam on presentation revealed a temperature of 98 pulse 61 respiration 24 blood pressure 140/98 pulse ox 96% on 2 L nasal cannula her white blood count was 9.6 hemoglobin 11.6 platelet count 273 d-dimer was elevated at 1.25 BUN 28 creatinine 1.14 on exam patient was having scattered crackles in both lung maria with wheezing, her chest x-ray revealed evidence of pulmonary hypertension, otherwise no significant findings, chest CTA was done and revealed no evidence of pulmonary embolism patient had evidence of COPD and pulmonary fibrosis and multiple thoracic compression fractures that have progressed significantly compared to old exam there was new pleural thickening at the right lung base. Patient was admitted to telemetry floor she was started on IV Lasix echocardiogram was ordered cardiology consultation was requested also requesting pulmonary consultation and orthopedic surgery consultation in regard to vertebral fracture. Dr. Coto will be notified to follow-up patient was unable to keep her outpatient follow-up appointment with her. On review of systems patient is alert and oriented 3 she is sitting up at the edge of the bed she is [place] at rest but stated that she has severe shortness of breath with any activity otherwise she denies any complaints there is no fever or chills no headache or dizziness no chest pain no cough no nausea or vomiting no abdominal pain no diarrhea no blood in the stools no burning with urination no frequency or urgency and no hematuria. Past Medical History Past Medical History: Atrial Fibrillation, Asthma, Heart Failure, COPD, Hypertension, Thyroid Disorder History of Any Multi-Drug Resistant Organisms: None Reported Past Surgical History: AICD, Hysterectomy, Pacemaker, Tonsillectomy Additional Past Surgical History / Comment(s): urethral suspension, ectopic, thyroid biopsy, cataract, glaucoma sx AICD/Pacer implant done in Apr, cardiac ablation 05/27/2018 Past Anesthesia/Blood Transfusion Reactions: No Reported Reaction Type of Cardiac Device: Permanent Pacemaker, AICD Device Placement Date:: Apr 2018 Past Psychological History: No Psychological Hx Reported Smoking Status: Former smoker Past Alcohol Use History: None Reported Past Drug Use History: None Reported Medications and Allergies Home Medications Medication Instructions Recorded Confirmed Type Ascorbic Acid [Vitamin C] 500 mg PO DAILY 04/27/18 07/18/20 History Carboxymethylcellulose Sodium 1 drop BOTH EYES BID PRN 04/27/18 07/18/20 History [Refresh Tears] Cholecalciferol (Vitamin D3) 2,000 unit PO DAILY 04/27/18 07/18/20 History [Vitamin D3] Ipratropium/Albuterol Sulfate 1 puff INHALATION RT-QID PRN 04/27/18 07/18/20 History [Combivent Respimat Inhaler] Latanoprost [Xalatan 0.005%] 1 drop RIGHT EYE HS 04/27/18 07/18/20 History Montelukast [Singulair] 10 mg PO HS 04/27/18 07/18/20 History Apixaban [Eliquis] 2.5 mg PO BID tablet 05/07/18 07/18/20 Rx Metoprolol Tartrate [Lopressor] 50 mg PO BID tab 05/31/18 07/18/20 Rx Potassium Chloride 10 meq PO DAILY 04/01/20 07/18/20 History Vitamin E 400 mg PO DAILY 04/01/20 07/18/20 History Pantoprazole [Protonix] 40 mg PO AC-BRKFST tablet. 04/06/20 07/18/20 Rx Gabapentin 300 mg PO DAILY 07/03/20 07/18/20 History Gabapentin [Neurontin] 600 mg PO HS 07/03/20 07/18/20 History Ipratropium-Albuterol Nebulize 3 ml INHALATION RT-QID PRN 07/03/20 07/18/20 History [Duoneb 0.5 mg-3 mg/3 ml Soln] Bumetanide [BUMEX] 2 mg PO BID@0900,1600 07/18/20 07/18/20 History HYDROcodone/APAP 10-325MG [[place] 1 tab PO Q8H PRN 07/18/20 07/18/20 History 10-325] Multivitamin with Iron 1 tab PO DAILY 07/18/20 07/18/20 History [Multivitamins with Iron] Allergies Allergy/AdvReac Type Severity Reaction Status Date / Time amlodipine Allergy Unknown Verified 07/18/20 16:06 benazepril [From Lotrel] Allergy Unknown Verified 07/18/20 16:06 cephalexin [From Keflex] Allergy Anaphylaxis Verified 07/18/20 16:06 Cephalosporins Allergy Anaphylaxis Verified 07/18/20 16:06 codeine Allergy Unknown Verified 07/18/20 16:06 Iodinated Contrast Media Allergy Anaphylaxis Verified 07/18/20 16:06 [Iodinated Contrast- Oral and IV Dye] nebivolol [From Bystolic] Allergy Unknown Verified 07/18/20 16:06 olmesartan [From Benicar] Allergy Unknown Verified 07/18/20 16:06 Penicillins Allergy Anaphylaxis Verified 07/18/20 16:06 Sulfa (Sulfonamide Allergy Anaphylaxis Verified 07/18/20 16:06 Antibiotics) apixaban [From Eliquis] AdvReac BONE PAIN Verified 07/18/20 16:06 clonidine AdvReac BLURRED Verified 07/18/20 16:06 VISION, DIZZY, SCRATCHY THROAT furosemide [From Lasix] AdvReac Nausea & Verified 07/18/20 16:06 Vomiting & Diarrhea hydralazine AdvReac CHILLS, Verified 07/18/20 16:06 SHAKING, LIGHT HEADED, FACE FLUSHED isosorbide [From Imdur] AdvReac Rapid Verified 07/18/20 16:06 Heart Rate labetalol AdvReac Dyspnea Verified 07/18/20 16:06 lisinopril AdvReac Nausea & Verified 07/18/20 16:06 Vomiting & Diarrhea/COUGH PAPER MEDICAL TAPE Allergy Unknown Uncoded 07/18/20 16:06 Physical Exam Vitals: Vital Signs Temp Pulse Resp BP Pulse Ox 07/19/20 16:25 60 18 144/65 94 L 07/19/20 15:18 62 07/19/20 15:01 60 07/19/20 13:12 68 18 167/78 98 07/19/20 10:39 69 07/19/20 10:29 68 07/19/20 07:56 97.9 F 66 18 157/98 98 07/19/20 07:28 60 07/19/20 07:18 62 07/19/20 06:15 61 18 144/88 96 07/19/20 01:20 98.5 F 60 16 123/61 100 07/18/20 21:31 97.9 F 65 17 151/84 07/18/20 20:38 98.3 F 60 18 135/51 100 07/18/20 18:06 98.3 F 60 16 135/72 100 Intake and Output 07/19/20 07/19/20 07/19/20 06:59 14:59 22:59 Intake Total 30 Output Total 100 Balance 30 -100 Intake: Oral 30 Output: Urine 100 Other: # Voids 3 1 # Bowel Movements 1 1 In general patient is alert and oriented 3 in no apparent distress HEENT head normocephalic and atraumatic Neck is supple no JVD no goiter no lymphadenopathy Chest exam reveals a few scattered crackles bilaterally no wheezing Cardiac exam reveals regular heart sounds S1 and S2 with 2/6 systolic murmur best heard in the right sternal border Abdomen is soft nontender no organomegaly with normal bowel sounds Extremity exam reveals 2+ edema no cyanosis or clubbing Neurological examination reveals no gross focal deficit Results CBC & Chem 7: 07/18/20 15:12 07/18/20 15:12 Assessment and Plan Plan: 1. Severe shortness of breath, there is evidence of pulmonary hypertension, will check echocardiogram, patient is receiving IV Lasix cardiology consultation was requested 2. Elevated d-dimer. Chest CTA negative for pulmonary embolism there is evidence of COPD and pulmonary fibrosis pulmonary consultation will be requested 3. Multiple vertebral fractures, that have progressed significantly since previous exam in March of this year Will consult Dr. D[place] 4. Recent history of bowel obstruction and hernia surgery by Dr Coto 5. Underlying history of atrial fibrillation maintained on Eliquis 6. Underlying history of hypertension 7. Evidence of COPD with exacerbation and wheezing this time patient was started on inhaled bronchodilators and IV steroids will continue awaiting pulmonary input At this time continue with IV Lasix Home medications reviewed and reordered Awaiting input from multiple specialist will follow closely will recheck labs in a.m.
[2020-07-19 20:47] LABS: Glucose,Whole Blood 225 mg/dL (75-99)
[2020-07-19] MEDS: INSULIN ASPART (NovoLOG) 100 UNIT/ML VIAL SQ SCH (21:56)
[2020-07-19] MEDS: MONTELUKAST 10 MG TAB PO SCH (21:58)
[2020-07-19] MEDS: LATANOPROST 0.005% OPHTH DROPS 2.5 ML BTL RIGHT EYE SCH (21:59)
[2020-07-20] MEDS: methylPREDNISolone SOD SUCCI 125 MG/2 ML VIAL IV SCH ×5 (00:41→23:49)
[2020-07-20 07:08] LABS: Glucose,Whole Blood 179 mg/dL (75-99)
[2020-07-20 07:28] LABS: Basophils % (A) 0 %; Eosinophils # (A) 0.1 k/uL (0-0.7); Eosinophils % (A) 1 %; HCT 33.9 % (34.0-46.0); HGB 10.9 gm/dL (11.4-16.0); Hypochromasia Slight; Lymphocytes # (A) 0.6 k/uL (1.0-4.8); Lymphocytes % (A) 7 %; MCH 30.8 pg (25.0-35.0); MCHC 32.2 g/dL (31.0-37.0); MCV 95.6 fL (80.0-100.0); Mean Platelet Volume 8.6; Monocytes # (A) 0.2 k/uL (0-1.0); Monocytes % (A) 2 %; Neutrophils # (A) 7.8 k/uL (1.3-7.7); Neutrophils % (A) 90 %; Platelet Count 242 k/uL (150-450); RBC 3.54 m/uL (3.80-5.40); RDW 14.8 % (11.5-15.5); WBC 8.7 k/uL (3.8-10.6)
[2020-07-20] MEDS: IPRATROPIUM-ALBUTEROL 3 ML NEB INHALATION SCH ×4 (07:41→20:27)
--- NOTE | 2020-07-20 08:25 | XR ---
EXAMINATION TYPE: XR chest 1V portable DATE OF EXAM: 07/20/2020 COMPARISON: Prior chest x-ray and CT 07/18/2020 HISTORY: Congestive heart failure, pneumonia TECHNIQUE: Single frontal view of the chest is obtained. FINDINGS: The heart is enlarged. Generators present in the left pectoral region, there are leads in right atrium and ventricle. Central vascularity appears prominently as on prior. Marked arthropathy n oted in the shoulders. There is no pneumothorax or pleural effusion. Interstitium is increased. Promi nent lung volumes are noted consistent with underlying COPD. Patient is rotated. IMPRESSION: Correlate to exclude pulmonary venous hypertension and interstitial edema. Prominent int erstitium could be due to underlying emphysematous change. Correlate for pulmonary artery hypertensio n.
[2020-07-20] MEDS: CHOLECALCIFEROL 1,000 UNIT TAB PO SCH (09:02)
[2020-07-20] MEDS: ASCORBIC ACID 500 MG TAB PO SCH (09:02)
[2020-07-20] MEDS: diphenhydrAMINE 25 MG CAP PO SCH ×4 (09:02→21:36)
[2020-07-20] MEDS: VITAMIN E (DL,TOCOPHERYL ACET) 400 UNIT CAP PO SCH (09:02)
[2020-07-20] MEDS: MULTIVITAMINS, THERA 1 EACH TAB PO SCH (09:03)
[2020-07-20] MEDS: POTASSIUM CHLORIDE ER 10 MEQ TAB.ER.PRT PO SCH (09:03)
[2020-07-20] MEDS: APIXABAN 2.5 MG TABLET PO SCH ×2 (09:03→21:36)
[2020-07-20] MEDS: GABAPENTIN 300 MG CAP PO SCH ×2 (09:03→21:36)
[2020-07-20] MEDS: PANTOPRAZOLE 40 MG TABLET PO SCH (09:03)
[2020-07-20] MEDS: METOPROLOL TARTRATE 50 MG TAB PO SCH ×2 (09:04→21:36)
[2020-07-20] MEDS: INSULIN ASPART (NovoLOG) 100 UNIT/ML VIAL SQ SCH ×4 (09:04→21:35)
[2020-07-20] MEDS: FUROSEMIDE 10 MG/ML 4 ML VIAL IV SCH ×2 (09:06→21:36)
--- NOTE | 2020-07-20 09:55 | ECHOF ---
Referral Reason: MEASUREMENTS -------- HEIGHT: 167.6 cm WEIGHT: 83.0 kg BP: IVSd: 1.1 cm (0.6 - 1.1) LVIDd: 3.8 cm (3.9 - 5.3) LVPWd: 1.4 cm (0.6 - 1.1) IVSs: 1.6 cm LVIDs: 1.7 cm LVPWs: 1.5 cm IVSd: 1.4 cm (0.6 - 1.1) LVIDd: 3.6 cm (3.9 - 5.3) LVPWd: 1.6 cm (0.6 - 1.1) IVSs: 1.3 cm LVIDs: 2.0 cm LVPWs: 2.0 cm EDV(Teich): 56 ml ESV(Teich): 13 ml EF(Teich): 77 % %FS: 45 % SV(Teich): 43 ml MV E Renato: 1.09 m/s MV DecT: 197 ms MV A Renato: 0.33 m/s MV E/A Ratio: 3.27 RAP: 5.00 mmHg RVSP: 46.17 mmHg FINDINGS -------- This was a technically good study. The left ventricular size is normal. There is mild concentric left ventricular hypertrophy. Overa ll left ventricular systolic function is normal with, an EF between 55 - 60 %. The right ventricle is normal in size. The left atrial size is normal. The right atrial size is normal. The aortic valve is trileaflet and appears structurally normal. The mitral valve is normal. Mild mitral regurgitation is present. The tricuspid valve appears structurally normal. Mild tricuspid regurgitation present. There is m ild pulmonary hypertension. The right ventricular systolic pressure, as measured by Doppler, is 46. 17mmHg. There is no pulmonic regurgitation present. The aortic root size is normal. IVC Not well visulized. There is a trivial pericardial effusion present. CONCLUSIONS -------- 1. The left ventricular size is normal. 2. There is mild concentric left ventricular hypertrophy. 3. Overall left ventricular systolic function is normal with, an EF between 55 - 60 %. 4. Mild mitral regurgitation is present. 5. Mild tricuspid regurgitation present. 6. There is mild pulmonary hypertension. 7. The right ventricular systolic pressure, as measured by Doppler, is 46.17mmHg. 8. There is a trivial pericardial effusion present. [employer] DEVELOPER DBA: Fozia Nino RDCS
--- NOTE | 2020-07-20 10:47 | P.CONS ---
History of Present Illness - Reason for Consult Consult date: 07/20/20 wound care - History of Present Illness this is an 85-year-old pleasant female patient being seen by the wound care center for nonhealing ulceration to the left lower extremity that is venous in nature. Patient has had the ulceration for approximately 10 weeks at this time. She was seen last week and patient by myself and ordered honey alginate. Patient is only came to 2 visits to the wound care center the last visit being on 06/26/2020. At that time were utilizing absorptive Silver. Patient has medical history significant for CHF and renal disease. Review of Systems Review Of Systems: Constitutional: No fever, no chills, no night sweats. No weight change. No weakness, fatigue or lethargy. No daytime sleepiness. Integumentary:reports wounds, no lesions. No rash or pruritus. No unusual bruising. No change in hair or nails. Past Medical History Past Medical History: Atrial Fibrillation, Asthma, Heart Failure, COPD, Hypertension History of Any Multi-Drug Resistant Organisms: None Reported Past Surgical History: AICD, Hysterectomy, Pacemaker, Tonsillectomy Additional Past Surgical History / Comment(s): urethral suspension, ectopic, thyroid biopsy, cataract, glaucoma sx AICD/Pacer implant done in Apr, cardiac ablation 05/27/2018/07/09/20 Robotic assisted laproscopic repair of strangulated right lower quadrant ventral hernia w/small bowel resection and primary anastamosis Past Anesthesia/Blood Transfusion Reactions: No Reported Reaction Type of Cardiac Device: Permanent Pacemaker, AICD Device Placement Date:: Apr 2018 Past Psychological History: No Psychological Hx Reported Additional Psychological History / Comment(s): and was living independently. Lives at home by herself - daughter comes in 3 days a week to help. No international travel. 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 No alcohol use. No animals at this time Smoking Status: Former smoker Past Alcohol Use History: None Reported Past Drug Use History: None Reported - Past Family History Brother(s) Family Medical History: Congestive Heart Failure (CHF) Medications and Allergies Home Medications Medication Instructions Recorded Confirmed Type Ascorbic Acid [Vitamin C] 500 mg PO DAILY 04/27/18 07/18/20 History Carboxymethylcellulose Sodium 1 drop BOTH EYES BID PRN 04/27/18 07/18/20 History [Refresh Tears] Cholecalciferol (Vitamin D3) 2,000 unit PO DAILY 04/27/18 07/18/20 History [Vitamin D3] Ipratropium/Albuterol Sulfate 1 puff INHALATION RT-QID PRN 04/27/18 07/18/20 History [Combivent Respimat Inhaler] Latanoprost [Xalatan 0.005%] 1 drop RIGHT EYE HS 04/27/18 07/18/20 History Montelukast [Singulair] 10 mg PO HS 04/27/18 07/18/20 History Apixaban [Eliquis] 2.5 mg PO BID tablet 05/07/18 07/18/20 Rx Metoprolol Tartrate [Lopressor] 50 mg PO BID tab 05/31/18 07/18/20 Rx Potassium Chloride 10 meq PO DAILY 04/01/20 07/18/20 History Vitamin E 400 mg PO DAILY 04/01/20 07/18/20 History Pantoprazole [Protonix] 40 mg PO AC-BRKFST tablet. 04/06/20 07/18/20 Rx Gabapentin 300 mg PO DAILY 07/03/20 07/18/20 History Gabapentin [Neurontin] 600 mg PO HS 07/03/20 07/18/20 History Ipratropium-Albuterol Nebulize 3 ml INHALATION RT-QID PRN 07/03/20 07/18/20 History [Duoneb 0.5 mg-3 mg/3 ml Soln] Bumetanide [BUMEX] 2 mg PO BID@0900,1600 07/18/20 07/18/20 History HYDROcodone/APAP 10-325MG [[place] 1 tab PO Q8H PRN 07/18/20 07/18/20 History 10-325] Multivitamin with Iron 1 tab PO DAILY 07/18/20 07/18/20 History [Multivitamins with Iron] Allergies Allergy/AdvReac Type Severity Reaction Status Date / Time amlodipine Allergy Unknown Verified 07/18/20 16:06 benazepril [From Lotrel] Allergy Unknown Verified 07/18/20 16:06 cephalexin [From Keflex] Allergy Anaphylaxis Verified 07/18/20 16:06 Cephalosporins Allergy Anaphylaxis Verified 07/18/20 16:06 codeine Allergy Unknown Verified 07/18/20 16:06 Iodinated Contrast Media Allergy Anaphylaxis Verified 07/18/20 16:06 [Iodinated Contrast- Oral and IV Dye] nebivolol [From Bystolic] Allergy Unknown Verified 07/18/20 16:06 olmesartan [From Benicar] Allergy Unknown Verified 07/18/20 16:06 Penicillins Allergy Anaphylaxis Verified 07/18/20 16:06 Sulfa (Sulfonamide Allergy Anaphylaxis Verified 07/18/20 16:06 Antibiotics) apixaban [From Eliquis] AdvReac BONE PAIN Verified 07/18/20 16:06 clonidine AdvReac BLURRED Verified 07/18/20 16:06 VISION, DIZZY, SCRATCHY THROAT furosemide [From Lasix] AdvReac Nausea & Verified 07/18/20 16:06 Vomiting & Diarrhea hydralazine AdvReac CHILLS, Verified 07/18/20 16:06 SHAKING, LIGHT HEADED, FACE FLUSHED isosorbide [From Imdur] AdvReac Rapid Verified 07/18/20 16:06 Heart Rate labetalol AdvReac Dyspnea Verified 07/18/20 16:06 lisinopril AdvReac Nausea & Verified 07/18/20 16:06 Vomiting & Diarrhea/COUGH PAPER MEDICAL TAPE Allergy Unknown Uncoded 07/18/20 16:06 Physical Exam Vitals: Vital Signs Temp Pulse Pulse Resp BP BP Pulse Ox 07/20/20 07:50 75 07/20/20 07:41 74 07/20/20 04:58 97.4 F L 64 18 112/73 93 L 07/20/20 00:00 89 20 07/19/20 20:46 98 F 89 20 147/75 93 L 07/19/20 19:05 72 07/19/20 18:58 76 07/19/20 17:45 97.9 F 58 L 18 142/56 96 07/19/20 16:25 60 18 144/65 94 L 07/19/20 15:18 62 07/19/20 15:01 60 07/19/20 13:12 68 18 167/78 98 Intake and Output 07/19/20 07/20/20 07/20/20 22:59 06:59 14:59 Intake Total 500 250 Balance 500 250 Intake: Oral 500 250 Other: # Voids 1 2 Weight 87 kg 89 kg Physical exam: General Appearance: Alert, cooperative, no distress, appears stated age. Skin: left lower extremity is a full-thickness ulceration with etiologies a venous ulcer and arterial insufficiency is located on the lateral medial lower leg. Measuring approximately6.9 x 2.7 x 0.1 cm. fat layer exposure. No tunne ling or undermining noted. His medium amount of serous drainage noted. Wound margins are indistinct and nonvisible. There is a large amount of granulation and a small amount of narcotic tissue including adherent Slough. Wound shows scarring dry scaly erythema. No maceration noted to the site.all other Skin color, texture, tugor decreased, no rashes or lesions. Neurologic: Alert oriented x3 Results CBC & Chem 7: 07/20/20 07:11 07/18/20 15:12 Labs: Abnormal Lab Results - Last 24 Hours (Table) 07/19/20 07/20/20 07/20/20 Range/Units 20:45 07:06 07:11 RBC 3.54 L (3.80-5.40) m/uL Hgb 10.9 L (11.4-16.0) gm/dL Hct 33.9 L (34.0-46.0) % Neutrophils # 7.8 H (1.3-7.7) k/uL Lymphocytes # 0.6 L (1.0-4.8) k/uL POC Glucose (mg/dL) 225 H 179 H (75-99) mg/dL Assessment and Plan (1) Stasis edema with ulcer of left lower extremity Current Visit: No Status: Acute Code(s): I87.312 - CHRONIC VENOUS HYPERTENSION W ULCER OF L LOW EXTREM; L97.929 - NON-PRS CHRONIC ULC UNSP PRT OF L LOW LEG W UNSP SEVERITY SNOMED Code(s): 323203639 (2) Ulcer of left lower extremity with fat layer exposed Current Visit: No Status: Acute Code(s): L97.922 - NON-PRS CHR ULC UNSP PRT OF L LOW LEG W FAT LAYER EXPOSED SNOMED Code(s): 18714155 Plan: apply honey alginate, saline moistened gauze, dry gauze roll gauze and secure with paper tape. Utilize a Abran wrap to control edema. Change Thursday. Patient to continue with weekly wound care visits upon discharge. Please call wound care center as scheduled. Thank you for the consultation any questions contact the wound care center DNP note has been reviewed and discussed with Dr. Garza and the impression and plan of care has been directed as dictated.
[2020-07-20 10:59] LABS: African American GFR (CKD) 39.9 (60.0-200.0); Albumin 3.3 g/dL (3.80-4.90); Albumin/Globulin Ratio 1.65 (1.60-3.17); Anion Gap 8.9 mmol/L (4.00-12.00); BUN/Creat Ratio 20.71 Ratio (12.00-20.00); Calcium 8.9 mg/dL (8.7-10.3); Carbon Dioxide 28.1 mmol/L (21.6-31.8); Non-African American GFR(CKD) 34.4 (60.0-200.0); Potassium 4.3 mmol/L (3.5-5.5); Total Bilirubin 0.5 mg/dL (0.2-1.2); Total Protein 5.3 g/dL (6.2-8.2)
[2020-07-20 11:09] LABS: Glucose,Whole Blood 148 mg/dL (75-99)
--- NOTE | 2020-07-20 12:04 | P.PN ---
Subjective Progress Note Date: 07/20/20 Susan Bhatt, is an 85-year-old female who was recently admitted to [facility] with abdominal pain and evidence of bowel obstruction she underwent hernia surgery with Dr. Coto, she was discharged home in good condition however she started developing worsening shortness of breath and today she decided to call EMS and come back to the emergency room due to severe dyspnea. She was evaluated in the emergency room her vital exam on presentation revealed a temperature of 98 pulse 61 respiration 24 blood pressure 140/98 pulse ox 96% on 2 L nasal cannula her white blood count was 9.6 hemoglobin 11.6 platelet count 273 d-dimer was elevated at 1.25 BUN 28 creatinine 1.14 on exam patient was having scattered crackles in both lung maria with wheezing, her chest x-ray revealed evidence of pulmonary hypertension, otherwise no significant findings, chest CTA was done and revealed no evidence of pulmonary embolism patient had evidence of COPD and pulmonary fibrosis and multiple tho racic compression fractures that have progressed significantly compared to old exam there was new pleural thickening at the right lung base. Patient was admitted to telemetry floor she was started on IV Lasix echocardiogram was ordered cardiology consultation was requested also requesting pulmonary consultation and orthopedic surgery consultation in regard to vertebral fracture. Dr. Coto will be notified to follow-up patient was unable to keep her outpatient follow-up appointment with her. On review of systems patient is alert and oriented 3 she is sitting up at the edge of the bed she is [place] at rest but stated that she has severe shortness of breath with any activity otherwise she denies any complaints there is no fever or chills no headache or dizziness no chest pain no cough no nausea or vomiting no abdominal pain no diarrhea no blood in the stools no burning with urination no frequency or urgency and no hematuria. On 07/20/2020 patient is alert and oriented. Patient reports improvement with shortness of breath. Patient remains on IV Lasix per cardiology. pulmonary services also consulted. Patient remains on IV Solu-Medrol. Wound care services also consulted for lower leg wound. Patient denies chest pain. Patient denies nausea vomiting or diarrhea. Patient denies any urinary burning or frequency Objective - Vital Signs Vital signs: Vital Signs Temp 97.4 F L 07/20/20 04:58 Pulse 68 07/20/20 11:24 Resp 20 07/20/20 08:00 BP 112/73 07/20/20 04:58 Pulse Ox 93 L 07/20/20 04:58 Intake & Output 07/19/20 07/20/20 07/20/20 18:59 06:59 18:59 Intake Total 750 240 Output Total 100 Balance -100 750 240 Weight 87 kg 89 kg Intake: Oral 750 240 Output: Urine 100 Other: # Voids 1 2 # Bowel Movements 1 - Exam Head normocephalic Neck supple Lungs diminished bilaterally with some wheezing Heart regular rate and rhythm S1-S2, no rub or gallop Abdomen is soft nontender nondistended positive bowel sounds no hepatosplenomegaly Extremities no edema Neuro alert and orientated to 3 - Labs CBC & Chem 7: 07/20/20 07:11 07/20/20 07:11 Labs: Abnormal Lab Results - Last 24 Hours (Table) 07/19/20 07/20/20 07/20/20 Range/Units 20:45 07:06 07:11 RBC 3.54 L (3.80-5.40) m/uL Hgb 10.9 L (11.4-16.0) gm/dL Hct 33.9 L (34.0-46.0) % Neutrophils # 7.8 H (1.3-7.7) k/uL Lymphocytes # 0.6 L (1.0-4.8) k/uL BUN (9.0-27.0) mg/dL Est GFR (CKD-EPI)AfAm (60.0-200.0) Est GFR (CKD-EPI)NonAf (60.0-200.0) BUN/Creatinine Ratio (12.00-20.00) Ratio Glucose (70-110) mg/dL POC Glucose (mg/dL) 225 H 179 H (75-99) mg/dL Total Protein (6.2-8.2) g/dL Albumin (3.80-4.90) g/dL 07/20/20 07/20/20 Range/Units 07:11 11:07 RBC (3.80-5.40) m/uL Hgb (11.4-16.0) gm/dL Hct (34.0-46.0) % Neutrophils # (1.3-7.7) k/uL Lymphocytes # (1.0-4.8) k/uL BUN 29.0 H (9.0-27.0) mg/dL Est GFR (CKD-EPI)AfAm 39.9 L (60.0-200.0) Est GFR (CKD-EPI)NonAf 34.4 L (60.0-200.0) BUN/Creatinine Ratio 20.71 H (12.00-20.00) Ratio Glucose 199 H (70-110) mg/dL POC Glucose (mg/dL) 148 H (75-99) mg/dL Total Protein 5.3 L (6.2-8.2) g/dL Albumin 3.30 L (3.80-4.90) g/dL Assessment and Plan Plan: 1. Severe shortness of breath, there is evidence of pulmonary hypertension, will check echocardiogram, patient is receiving IV Lasix cardiology consultation was requested. 2-D echo completed showing an EF of 55-60% 2. Elevated d-dimer. Chest CTA negative for pulmonary embolism there is evidence of COPD and pulmonary fibrosis pulmonary consultation will be requested 3. Multiple vertebral fractures, that have progressed significantly since previous exam in March of this year Will consult Dr. Denton 4. Recent history of bowel obstruction and hernia surgery by Dr Coto 5. Underlying history of atrial fibrillation maintained on Eliquis 6. Underlying history of hypertension 7. Evidence of COPD with exacerbation and wheezing this time patient was started on inhaled bronchodilators and IV steroids will continue awaiting pulmonary input At this time continue with IV Lasix Home medications reviewed and reordered Awaiting input from multiple specialist will follow closely will recheck labs in a.m. PT OT consulted
--- NOTE | 2020-07-20 12:04 | P.CRDCN ---
History of Present Illness Consult date: 07/20/20 History of present illness: CHIEF COMPLAINT: Congestive heart failure HISTORY OF PRESENT ILLNESS: This is a 85 -year old female with a past medical history significant for paroxysmal atrial fibrillation, congestive heart fail ure, COPD, and hypertension. Patient follows in the office with Dr. Trevizo. We have been asked to see the patient in consultation for congestive heart failure. Patient underwent robotic-assisted laparoscopic repair of strangulated right lower quadrant ventral hernia with small bowel resection and primary anastomosis with Dr. Coto on 07/09/2020. Patient was discharged home in stable condition. She reports over the past few days she has been getting more short of breath. She states she attempted to walk to the bathroom at home and was "so winded" afterwards that she decided to come to the emergency room for further evaluation. She denies chest pain or pressure. She states her shortness of breath has improved since coming to the hospital. She denies dizziness or lightheadedness. Denies fever or chills. DIAGNOSTICS: EKG reveals atrial fibrillation with no signs of acute ischemia Chest xray correlate to exclude pulmonary venous hypertension and interstitial edema. CTA: Negative for pulmonary emboli Laboratory data: WBC 8.7. Hemoglobin 10.9. Platelet count 242. D-dimer 1.25. Sodium 137. Potassium 4.3. BUN 29. Creatinine 1.4. BNP 6260. Troponin ne gative x 1 Current home cardiac medications include metoprolol 50 mg twice a day, Bumex 2 mg twice a day, and Eliquis 2.5 mg twice a day Echocardiogram completed revealed ejection fraction 55-60%, mild mitral regurgitation, mild tricuspid regurgitation, and mild pulmonary hypertension REVIEW OF SYSTEMS: At the time of my exam: CONSTITUTIONAL: Denies fever or chills. HEENT: Denies blurred vision, vision changes, or eye pain. Denies hemoptysis CARDIOVASCULAR: Denies chest pain, orthopnea, PND or palpitations RESPIRATORY: No shortness of breath. GASTROINTESTINAL: Denies abdominal pain. Denies nausea or vomiting. HEMATOLOGIC: Denies bleeding disorders. GENITOURINARY: Denies any blood in urine. SKIN: Denies pruitis. Denies rash. PHYSICAL EXAM: VITAL SIGNS: Reviewed. GENERAL: Well-developed in no acute distress. HEENT: Head is normocephalic. Pupils are equal, round. Sclerae anicteric. Mucous membranes of the mouth are moist. Neck supple. No JVD or thyromegaly LUNGS: Respirations even and unlabored. Lungs diminished. HEART: Regular rate and rhythm. S1 and S2 heard. ABDOMEN: Soft. Nondistended. Nontender. EXTREMITIES: Normal range of motion. No clubbing or cyanosis. Peripheral pulses intact. Trace bilateral lower extremity edema NEUROLOGIC: Awake and alert. Oriented x 3. ASSESSMENT: Acute exacerbation of diastolic congestive heart failure Acute exacerbation of chronic obstructive pulmonary disease; on home oxygen Status post robotic-assisted laparoscopic repair of strangulated right lower quadrant ventral hernia with small bowel resection and primary anastomosis with Dr. 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 Anticipate transitioning to Bumex 2 mg PO BID tomorrow Monitor kidney function Daily weights Accurate I&O Further recommendations pending patient's course Nurse practitioner note has been reviewed by physician. Signing provider agrees with the documented findings, assessment, and plan of care. Past Medical History Past Medical History: Atrial Fibrillation, Asthma, Heart Failure, COPD, Hypertension History of Any Multi-Drug Resistant Organisms: None Reported Past Surgical History: AICD, Hysterectomy, Pacemaker, Tonsillectomy Additional Past Surgical History / Comment(s): urethral suspension, ectopic, thyroid biopsy, cataract, glaucoma sx AICD/Pacer implant done in Apr, cardiac ablation 05/27/2018/07/09/20 Robotic assisted laproscopic repair of strangulated right lower quadrant ventral hernia w/small bowel resection and primary anastamosis Past Anesthesia/Blood Transfusion Reactions: No Reported Reaction Type of Cardiac Device: Permanent Pacemaker, AICD Device Placement Date:: Apr 2018 Past Psychological History: No Psychological Hx Reported Additional Psychological History / Comment(s): and was living independently. Lives at home by herself - daughter comes in 3 days a week to help. No international travel. 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 No alcohol use. No animals at this time Smoking Status: Former smoker Past Alcohol Use History: None Reported Past Drug Use History: None Reported - Past Family History Brother(s) Family Medical History: Congestive Heart Failure (CHF) Medications and Allergies Home Medications Medication Instructions Recorded Confirmed Type Ascorbic Acid [Vitamin C] 500 mg PO DAILY 04/27/18 07/18/20 History Carboxymethylcellulose Sodium 1 drop BOTH EYES BID PRN 04/27/18 07/18/20 History [Refresh Tears] Cholecalciferol (Vitamin D3) 2,000 unit PO DAILY 04/27/18 07/18/20 History [Vitamin D3] Ipratropium/Albuterol Sulfate 1 puff INHALATION RT-QID PRN 04/27/18 07/18/20 History [Combivent Respimat Inhaler] Latanoprost [Xalatan 0.005%] 1 drop RIGHT EYE HS 04/27/18 07/18/20 History Montelukast [Singulair] 10 mg PO HS 04/27/18 07/18/20 History Apixaban [Eliquis] 2.5 mg PO BID tablet 05/07/18 07/18/20 Rx Metoprolol Tartrate [Lopressor] 50 mg PO BID tab 05/31/18 07/18/20 Rx Potassium Chloride 10 meq PO DAILY 04/01/20 07/18/20 History Vitamin E 400 mg PO DAILY 04/01/20 07/18/20 History Pantoprazole [Protonix] 40 mg PO AC-BRKFST tablet. 04/06/20 07/18/20 Rx Gabapentin 300 mg PO DAILY 07/03/20 07/18/20 History Gabapentin [Neurontin] 600 mg PO HS 07/03/20 07/18/20 History Ipratropium-Albuterol Nebulize 3 ml INHALATION RT-QID PRN 07/03/20 07/18/20 History [Duoneb 0.5 mg-3 mg/3 ml Soln] Bumetanide [BUMEX] 2 mg PO BID@0900,1600 07/18/20 07/18/20 History HYDROcodone/APAP 10-325MG [[place] 1 tab PO Q8H PRN 07/18/20 07/18/20 History 10-325] Multivitamin with Iron 1 tab PO DAILY 07/18/20 07/18/20 History [Multivitamins with Iron] Allergies Allergy/AdvReac Type Severity Reaction Status Date / Time amlodipine Allergy Unknown Verified 07/18/20 16:06 benazepril [From Lotrel] Allergy Unknown Verified 07/18/20 16:06 cephalexin [From Keflex] Allergy Anaphylaxis Verified 07/18/20 16:06 Cephalosporins Allergy Anaphylaxis Verified 07/18/20 16:06 codeine Allergy Unknown Verified 07/18/20 16:06 Iodinated Contrast Media Allergy Anaphylaxis Verified 07/18/20 16:06 [Iodinated Contrast- Oral and IV Dye] nebivolol [From Bystolic] Allergy Unknown Verified 07/18/20 16:06 olmesartan [From Benicar] Allergy Unknown Verified 07/18/20 16:06 Penicillins Allergy Anaphylaxis Verified 07/18/20 16:06 Sulfa (Sulfonamide Allergy Anaphylaxis Verified 07/18/20 16:06 Antibiotics) apixaban [From Eliquis] AdvReac BONE PAIN Verified 07/18/20 16:06 clonidine AdvReac BLURRED Verified 07/18/20 16:06 VISION, DIZZY, SCRATCHY THROAT furosemide [From Lasix] AdvReac Nausea & Verified 07/18/20 16:06 Vomiting & Diarrhea hydralazine AdvReac CHILLS, Verified 07/18/20 16:06 SHAKING, LIGHT HEADED, FACE FLUSHED isosorbide [From Imdur] AdvReac Rapid Verified 07/18/20 16:06 Heart Rate labetalol AdvReac Dyspnea Verified 07/18/20 16:06 lisinopril AdvReac Nausea & Verified 07/18/20 16:06 Vomiting & Diarrhea/COUGH PAPER MEDICAL TAPE Allergy Unknown Uncoded 07/18/20 16:06 Physical Exam Vitals: Vital Signs Temp Pulse Pulse Resp BP BP Pulse Ox 07/20/20 11:24 68 07/20/20 11:11 66 07/20/20 08:00 20 07/20/20 07:50 75 07/20/20 07:41 74 07/20/20 04:58 97.4 F L 64 18 112/73 93 L 07/20/20 00:00 89 20 07/19/20 20:46 98 F 89 20 147/75 93 L 07/19/20 19:05 72 07/19/20 18:58 76 07/19/20 17:45 97.9 F 58 L 18 142/56 96 07/19/20 16:25 60 18 144/65 94 L 07/19/20 15:18 62 07/19/20 15:01 60 11/12/20 13:12 68 18 167/78 98 Intake and Output 07/19/20 07/20/20 07/20/20 22:59 06:59 14:59 Intake Total 500 250 240 Balance 500 250 240 Intake: Oral 500 250 240 Other: # Voids 1 2 Weight 87 kg 89 kg Results 07/20/20 07:11 07/20/20 07:11 Cardiac Enzymes 07/20/20 Range/Units 07:11 AST 18 (13-35) U/L CBC 07/20/20 Range/Units 07:11 WBC 8.7 (3.8-10.6) k/uL RBC 3.54 L (3.80-5.40) m/uL Hgb 10.9 L (11.4-16.0) gm/dL Hct 33.9 L (34.0-46.0) % Plt Count 242 (150-450) k/uL Comprehensive Metabolic Panel 07/20/20 Range/Units 07:11 Sodium 137 (135-145) mmol/L Potassium 4.3 (3.5-5.5) mmol/L Chloride 100 (96-109) mmol/L Carbon Dioxide 28.1 (21.6-31.8) mmol/L BUN 29.0 H (9.0-27.0) mg/dL Creatinine 1.4 (0.6-1.5) mg/dL Glucose 199 H (70-110) mg/dL Calcium 8.9 (8.7-10.3) mg/dL AST 18 (13-35) U/L ALT 16 (8-44) U/L Alkaline Phosphatase 74 (41-126) U/L Total Protein 5.3 L (6.2-8.2) g/dL Albumin 3.30 L (3.80-4.90) g/dL Current Medications Generic Name Dose Route Start Last Admin Trade Name Freq PRN Reason Stop Dose Admin Hydrocodone Bitart/Acetaminophen 1 each 07/18/20 19:29 07/19/20 16:22 Hydrocodone/Apap 10-325mg 1 Each Tab PO 1 each Q8H PRN Administration Pain Albuterol/Ipratropium 3 ml 07/19/20 08:00 07/20/20 11:11 Ipratropium-Albuterol 3 Ml Neb INHALATION 3 ml RT-QID ОЛЕГ Administration Albuterol/Ipratropium 3 ml 07/18/20 20:22 Ipratropium-Albuterol 3 Ml Neb INHALATION RT-Q2H PRN Shortness Of Breath Or Wheezing Apixaban 2.5 mg 07/18/20 21:00 07/20/20 09:03 Apixaban 2.5 Mg Tablet PO 2.5 mg BID ОЛЕГ Administration Artificial Tears 1 drops 07/18/20 19:29 Artificial Tears-Hypromellose Drops 15 Ml Btl BOTH EYES BID PRN dry eyes Ascorbic Acid 500 mg 07/19/20 09:00 07/20/20 09:02 Ascorbic Acid 500 Mg Tab PO 500 mg DAILY ОЛЕГ Administration Cholecalciferol 2,000 unit 07/19/20 09:00 07/20/20 09:02 Cholecalciferol 1,000 Unit Tab PO 2,000 unit DAILY ОЛЕГ Administration Diphenhydramine HCl 25 mg 07/19/20 10:00 07/20/20 09:02 Diphenhydramine 25 Mg Cap PO 25 mg QID ОЛЕГ Administration Furosemide 40 mg 07/19/20 09:00 07/20/20 09:06 Furosemide 10 Mg/Ml 4 Ml Vial IV 40 mg Q12HR ОЛЕГ Administration Gabapentin 600 mg 07/18/20 21:00 07/19/20 21:57 Gabapentin 300 Mg Cap PO 600 mg HS ОЛЕГ Administration Gabapentin 300 mg 07/19/20 09:00 07/20/20 09:03 Gabapentin 300 Mg Cap PO 300 mg DAILY ОЛЕГ Administration Insulin Aspart 0 unit 07/19/20 21:00 07/20/20 09:04 Insulin Aspart (Novolog) 100 Unit/Ml Vial SQ 2 unit ACHS ОЛЕГ Administration Protocol Latanoprost 1 drops 07/18/20 21:00 07/19/20 21:59 Latanoprost 0.005% Ophth Drops 2.5 Ml Btl RIGHT EYE 1 drops HS ОЛЕГ Administration Methylprednisolone Sodium Succinate 60 mg 07/19/20 00:00 07/20/20 06:17 Methylprednisolone Sod Succi 125 Mg/2 Ml Vial IV 60 mg Q6HR ОЛЕГ Administration Metoprolol Tartrate 50 mg 07/18/20 21:00 07/20/20 09:04 Metoprolol Tartrate 50 Mg Tab PO 50 mg BID ОЛЕГ Administration Montelukast Sodium 10 mg 07/18/20 21:00 07/19/20 21:58 Montelukast 10 Mg Tab PO 10 mg HS ОЛЕГ Administration Multivitamins 1 each 07/19/20 09:00 07/20/20 09:03 Multivitamins, Thera 1 Each Tab PO 1 each DAILY ОЛЕГ Administration Pantoprazole Sodium 40 mg 07/19/20 07:30 07/20/20 09:03 Pantoprazole 40 Mg Tablet PO 40 mg AC-BRKFST ОЛЕГ Administration Potassium Chloride 10 meq 07/19/20 09:00 07/20/20 09:03 Potassium Chloride Er 10 Meq Tab.Er.Prt PO 10 meq DAILY ОЛЕГ Administration Vitamin E 400 unit 07/19/20 09:00 07/20/20 09:02 Vitamin E (Dl,Tocopheryl Acet) 400 Unit Cap PO 400 unit DAILY ОЛЕГ Administration Intake and Output 07/19/20 07/20/20 07/20/20 22:59 06:59 14:59 Intake Total 500 250 240 Balance 500 250 240 Intake: Oral 500 250 240 Other: # Voids 1 2 Weight 87 kg 89 kg 07/20/20 07:11 07/20/20 07:11
--- NOTE | 2020-07-20 15:15 | P.CNPUL ---
History of Present Illness Consult date: 07/20/20 Reason for consult: dyspnea, cough, COPD, hypoxemia Chief complaint: Shortness of breath History of present illness: Ms. 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 and intermittently prednisone dependent as well as, recently patient was hospitalized for a ventral hernia which was incarcerated patient underwent surgery with this small portion of small bowel resection she recovered nicely with surgery during the process her CO2 remained stable in fact at the time of discharge she did was on baseline oxygen without any chest complaint, stable shortness of breath, patient came into the hospital with progressive shortness of breath started about 1-2 days ago along with intermittent wheezing, patient was noted to have slightly elevated blood pressure than baseline however her oxygen saturation was stable 96%, chest x-ray continued to show extensive COPD along with chronic changes and compression fracture of thoracic spine at different levels, she also underwent computed tomography scan of the chest was negative for pulmonary embolism however continue show findings as mentioned above and interstitial edema suggestive of fluid overload/early CHF, her labs were significant for normal white cell count, slightly elevated creatinine level, BNP is over 6000, pending cardiology evaluation patient also noted to have A. fib with RVR which however has improved now with Lasix Review of Systems All systems: negative Past Medical History Past Medical History: Atrial Fibrillation, Asthma, Heart Failure, COPD, Hypertension History of Any Multi-Drug Resistant Organisms: None Reported Past Surgical History: AICD, Hysterectomy, Pacemaker, Tonsillectomy Additional Past Surgical History / Comment(s): urethral suspension, ectopic, thyroid biopsy, cataract, glaucoma sx AICD/Pacer implant done in Apr, cardiac ablation 05/27/2018/07/09/20 Robotic assisted laproscopic repair of strangulated right lower quadrant ventral hernia w/small bowel resection and primary anastamosis Past Anesthesia/Blood Transfusion Reactions: No Reported Reaction Type of Cardiac Device: Permanent Pacemaker, AICD Device Placement Date:: Apr 2018 Past Psychological History: No Psychological Hx Reported Additional Psychological History / Comment(s): and was living independently. Lives at home by herself - daughter comes in 3 days a week to help. No international travel. 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 No alcohol use. No animals at this time Smoking Status: Former smoker Past Alcohol Use History: None Reported Past Drug Use History: None Reported - Past Family History Brother(s) Family Medical History: Congestive Heart Failure (CHF) Medications and Allergies Home Medications Medication Instructions Recorded Confirmed Type Ascorbic Acid [Vitamin C] 500 mg PO DAILY 04/27/18 07/18/20 History Carboxymethylcellulose Sodium 1 drop BOTH EYES BID PRN 04/27/18 07/18/20 History [Refresh Tears] Cholecalciferol (Vitamin D3) 2,000 unit PO DAILY 04/27/18 07/18/20 History [Vitamin D3] Ipratropium/Albuterol Sulfate 1 puff INHALATION RT-QID PRN 04/27/18 07/18/20 History [Combivent Respimat Inhaler] Latanoprost [Xalatan 0.005%] 1 drop RIGHT EYE HS 04/27/18 07/18/20 History Montelukast [Singulair] 10 mg PO HS 04/27/18 07/18/20 History Apixaban [Eliquis] 2.5 mg PO BID tablet 05/07/18 07/18/20 Rx Metoprolol Tartrate [Lopressor] 50 mg PO BID tab 05/31/18 07/18/20 Rx Potassium Chloride 10 meq PO DAILY 04/01/20 07/18/20 History Vitamin E 400 mg PO DAILY 04/01/20 07/18/20 History Pantoprazole [Protonix] 40 mg PO AC-BRKFST tablet. 04/06/20 07/18/20 Rx Gabapentin 300 mg PO DAILY 07/03/20 07/18/20 History Gabapentin [Neurontin] 600 mg PO HS 07/03/20 07/18/20 History Ipratropium-Albuterol Nebulize 3 ml INHALATION RT-QID PRN 07/03/20 07/18/20 History [Duoneb 0.5 mg-3 mg/3 ml Soln] Bumetanide [BUMEX] 2 mg PO BID@0900,1600 07/18/20 07/18/20 History HYDROcodone/APAP 10-325MG [[place] 1 tab PO Q8H PRN 07/18/20 07/18/20 History 10-325] Multivitamin with Iron 1 tab PO DAILY 07/18/20 07/18/20 History [Multivitamins with Iron] Allergies Allergy/AdvReac Type Severity Reaction Status Date / Time amlodipine Allergy Unknown Verified 07/18/20 16:06 benazepril [From Lotrel] Allergy Unknown Verified 07/18/20 16:06 cephalexin [From Keflex] Allergy Anaphylaxis Verified 07/18/20 16:06 Cephalosporins Allergy Anaphylaxis Verified 07/18/20 16:06 codeine Allergy Unknown Verified 07/18/20 16:06 Iodinated Contrast Media Allergy Anaphylaxis Verified 07/18/20 16:06 [Iodinated Contrast- Oral and IV Dye] nebivolol [From Bystolic] Allergy Unknown Verified 07/18/20 16:06 olmesartan [From Benicar] Allergy Unknown Verified 07/18/20 16:06 Penicillins Allergy Anaphylaxis Verified 07/18/20 16:06 Sulfa (Sulfonamide Allergy Anaphylaxis Verified 07/18/20 16:06 Antibiotics) apixaban [From Eliquis] AdvReac BONE PAIN Verified 07/18/20 16:06 clonidine AdvReac BLURRED Verified 07/18/20 16:06 VISION, DIZZY, SCRATCHY THROAT furosemide [From Lasix] AdvReac Nausea & Verified 07/18/20 16:06 Vomiting & Diarrhea hydralazine AdvReac CHILLS, Verified 07/18/20 16:06 SHAKING, LIGHT HEADED, FACE FLUSHED isosorbide [From Imdur] AdvReac Rapid Verified 07/18/20 16:06 Heart Rate labetalol AdvReac Dyspnea Verified 07/18/20 16:06 lisinopril AdvReac Nausea & Verified 07/18/20 16:06 Vomiting & Diarrhea/COUGH PAPER MEDICAL TAPE Allergy Unknown Uncoded 07/18/20 16:06 Physical Exam Vitals: Vital Signs Temp Pulse Pulse Resp BP BP Pulse Ox 07/20/20 13:10 98.6 F 62 20 139/65 100 07/20/20 11:24 68 07/20/20 11:11 66 07/20/20 08:00 20 07/20/20 07:50 75 07/20/20 07:41 74 07/20/20 04:58 97.4 F L 64 18 112/73 93 L 07/20/20 00:00 89 20 07/19/20 20:46 98 F 89 20 147/75 93 L 07/19/20 19:05 72 07/19/20 18:58 76 07/19/20 17:45 97.9 F 58 L 18 142/56 96 07/19/20 16:25 60 18 144/65 94 L 07/19/20 15:18 62 Intake and Output 07/20/20 07/20/20 07/20/20 06:59 14:59 22:59 Intake Total 250 240 Balance 250 240 Intake: Oral 250 240 Other: # Voids 2 Weight 89 kg - Constitutional General appearance: average body habitus, disheveled, mild distress - EENT Eyes: PERRLA Ears: bilateral: normal - Neck Carotids: bilateral: upstroke normal - Respiratory Respiratory: bilateral: diminished, rales (Bilateral basal) - Cardiovascular Rhythm: irregularly irregular Heart sounds: normal: S1, S2 - Gastrointestinal General gastrointestinal: normal bowel sounds, soft - Integumentary Integumentary: normal turgor - Neurologic Neurologic: CNII-XII intact - Musculoskeletal Musculoskeletal: gait normal, generalized weakness - Psychiatric Psychiatric: A&O x's 3, appropriate affect, intact judgment & insight Results - Laboratory Findings CBC and BMP: 07/20/20 07:11 07/20/20 07:11 PT/INR, D-dimer PT 13.4 sec (9.0-12.0) H 07/18/20 15:12 INR 1.3 (<1.2) H 07/18/20 15:12 D-Dimer 1.25 mg/L FEU (<0.60) H 07/18/20 15:12 Abnormal lab findings: Abnormal Labs 07/18/20 07/18/20 07/18/20 15:12 15:12 15:12 RBC 3.79 L Hgb Hct Neutrophils # Lymphocytes # PT 13.4 H INR 1.3 H D-Dimer 1.25 H Carbon Dioxide 32 H BUN 28 H Creatinine 1.14 H Est GFR (CKD-EPI)AfAm Est GFR (CKD-EPI)NonAf BUN/Creatinine Ratio Glucose 136 H POC Glucose (mg/dL) Creatine Kinase <20 L Total Protein 5.6 L Albumin 3.0 L 07/19/20 07/20/20 07/20/20 20:45 07:06 07:11 RBC 3.54 L Hgb 10.9 L Hct 33.9 L Neutrophils # 7.8 H Lymphocytes # 0.6 L PT INR D-Dimer Carbon Dioxide BUN Creatinine Est GFR (CKD-EPI)AfAm Est GFR (CKD-EPI)NonAf BUN/Creatinine Ratio Glucose POC Glucose (mg/dL) 225 H 179 H Creatine Kinase Total Protein Albumin 07/20/20 07/20/20 07:11 11:07 RBC Hgb Hct Neutrophils # Lymphocytes # PT INR D-Dimer Carbon Dioxide BUN 29.0 H Creatinine Est GFR (CKD-EPI)AfAm 39.9 L Est GFR (CKD-EPI)NonAf 34.4 L BUN/Creatinine Ratio 20.71 H Glucose 199 H POC Glucose (mg/dL) 148 H Creatine Kinase Total Protein 5.3 L Albumin 3.30 L - Diagnostic Findings Chest x-ray: report reviewed, image reviewed CT scan - chest: report reviewed, image reviewed (Finding as noted above) Assessment and Plan Assessment: Acute diastolic heart failure likely related to A. 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 fib RVR along with diastolic heart failure Continue supplemental oxygen Deep breathing exercises incentive spirometry Further recommendations pending plan of care as per clinical response of the patient Monitor renal functions closely Time with Patient: Greater than 30
--- NOTE | 2020-07-20 16:39 | P.CNOR ---
History of Present Illness - [facility] Consult date: 07/20/20 Requesting physician: Elham Kumar Consult reason: fracture (T6 and T7 vertebral body compression fractures) History of present illness: Patient is a very pleasant 85-year-old female who is seen examined at bedside for further evaluation regards to her thoracic spine. She is known to have previously undergone surgical intervention with Dr. Coto. She was recently discharged. She started to become short of breath. She presented to the emergency department yesterday for further evaluation. CT imaging was taken at that time which showed evidence of worsening compression fracture deformities at T6 and T7 as compared to previous imaging taken on 04/01/2020. Patient states she is not currently experiencing any thoracic pain. She has no pain with coughing or sneezing. She states she sustained a fall last week but did not experience any increased pain at that time. She denies any radiculopathy symptoms of her thoracic spine. She does have some chronic pain down her lower extremities most significant over the left anterior miranda. She also has some chronic redness of the bilateral lower extremities. She currently has some swelling in the bilateral lower extremities. Patient was found to have elevated d-dimer during admission. CTA of the chest was taken which was negative for pulmonary embolism. Patient recently underwent right lower quadrant ventral hernia repair with small bowel obstruction resection with primary anastomosis performed by Dr. Coto on 07/09/2020. Past Medical History Past Medical History: Atrial Fibrillation, Asthma, Heart Failure, COPD, Hypertension History of Any Multi-Drug Resistant Organisms: None Reported Past Surgical History: AICD, Hysterectomy, Pacemaker, Tonsillectomy Additional Past Surgical History / Comment(s): urethral suspension, ectopic, thyroid biopsy, cataract, glaucoma sx AICD/Pacer implant done in Apr, cardiac ablation 05/27/2018/07/09/20 Robotic assisted laproscopic repair of strangulated right lower quadrant ventral hernia w/small bowel resection and primary anastamosis Past Anesthesia/Blood Transfusion Reactions: No Reported Reaction Type of Cardiac Device: Permanent Pacemaker, AICD Device Placement Date:: Apr 2018 Past Psychological History: No Psychological Hx Reported Additional Psychological History / Comment(s): and was living independently. Lives at home by herself - daughter comes in 3 days a week to help. No international travel. 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 No alcohol use. No animals at this time Smoking Status: Former smoker Past Alcohol Use History: None Reported Past Drug Use History: None Reported - Past Family History Brother(s) Family Medical History: Congestive Heart Failure (CHF) Medications and Allergies Home Medications Medication Instructions Recorded Confirmed Type Ascorbic Acid [Vitamin C] 500 mg PO DAILY 04/27/18 07/18/20 History Carboxymethylcellulose Sodium 1 drop BOTH EYES BID PRN 04/27/18 07/18/20 History [Refresh Tears] Cholecalciferol (Vitamin D3) 2,000 unit PO DAILY 04/27/18 07/18/20 History [Vitamin D3] Ipratropium/Albuterol Sulfate 1 puff INHALATION RT-QID PRN 04/27/18 07/18/20 History [Combivent Respimat Inhaler] Latanoprost [Xalatan 0.005%] 1 drop RIGHT EYE HS 04/27/18 07/18/20 History Montelukast [Singulair] 10 mg PO HS 04/27/18 07/18/20 History Apixaban [Eliquis] 2.5 mg PO BID tablet 05/07/18 07/18/20 Rx Metoprolol Tartrate [Lopressor] 50 mg PO BID tab 05/31/18 07/18/20 Rx Potassium Chloride 10 meq PO DAILY 04/01/20 07/18/20 History Vitamin E 400 mg PO DAILY 04/01/20 07/18/20 History Pantoprazole [Protonix] 40 mg PO AC-BRKFST tablet. 04/06/20 07/18/20 Rx Gabapentin 300 mg PO DAILY 07/03/20 07/18/20 History Gabapentin [Neurontin] 600 mg PO HS 07/03/20 07/18/20 History Ipratropium-Albuterol Nebulize 3 ml INHALATION RT-QID PRN 07/03/20 07/18/20 History [Duoneb 0.5 mg-3 mg/3 ml Soln] Bumetanide [BUMEX] 2 mg PO BID@0900,1600 07/18/20 07/18/20 History HYDROcodone/APAP 10-325MG [[place] 1 tab PO Q8H PRN 07/18/20 07/18/20 History 10-325] Multivitamin with Iron 1 tab PO DAILY 07/18/20 07/18/20 History [Multivitamins with Iron] Allergies Allergy/AdvReac Type Severity Reaction Status Date / Time amlodipine Allergy Unknown Verified 07/18/20 16:06 benazepril [From Lotrel] Allergy Unknown Verified 07/18/20 16:06 cephalexin [From Keflex] Allergy Anaphylaxis Verified 07/18/20 16:06 Cephalosporins Allergy Anaphylaxis Verified 07/18/20 16:06 codeine Allergy Unknown Verified 07/18/20 16:06 Iodinated Contrast Media Allergy Anaphylaxis Verified 07/18/20 16:06 [Iodinated Contrast- Oral and IV Dye] nebivolol [From Bystolic] Allergy Unknown Verified 07/18/20 16:06 olmesartan [From Benicar] Allergy Unknown Verified 07/18/20 16:06 Penicillins Allergy Anaphylaxis Verified 07/18/20 16:06 Sulfa (Sulfonamide Allergy Anaphylaxis Verified 07/18/20 16:06 Antibiotics) apixaban [From Eliquis] AdvReac BONE PAIN Verified 07/18/20 16:06 clonidine AdvReac BLURRED Verified 07/18/20 16:06 VISION, DIZZY, SCRATCHY THROAT furosemide [From Lasix] AdvReac Nausea & Verified 07/18/20 16:06 Vomiting & Diarrhea hydralazine AdvReac CHILLS, Verified 07/18/20 16:06 SHAKING, LIGHT HEADED, FACE FLUSHED isosorbide [From Imdur] AdvReac Rapid Verified 07/18/20 16:06 Heart Rate labetalol AdvReac Dyspnea Verified 07/18/20 16:06 lisinopril AdvReac Nausea & Verified 07/18/20 16:06 Vomiting & Diarrhea/COUGH PAPER MEDICAL TAPE Allergy Unknown Uncoded 07/18/20 16:06 Physical Examination Physical exam: Patient is awake, alert, oriented 3; she is answering questions appropriately Good chest excursion with deep inspiration and expiration Examination of the thoracic spine shows evidence of increased kyphosis at the mid thoracic spine No pain with palpation over the thoracic spine No evidence of bruising, erythema, or obvious sign of infection over her thoracic spine Patient is able to move bilateral lower extremities without significant difficulty Dorsiflexion and plantarflexion positive sustaining bilateral lower extremities Neurovascularly intact bilateral lower extremities Evidence of erythema and some swelling over the bilateral lower extremities greater on the right than the left Right miranda is warm to palpation Results Pertinent studies: CT of the chest taken on 07/19/2020 reviewed for orthopedic purposes: Evidence of bridging compression fracture deformity at T6 and T7; T6 compression fracture deformity is severe with approximately 80% height loss; no evidence of pulmonary embolism; COPD with pulmonary fibrosis; pleural thickening at the right lung base - Labs Labs: Abnormal Lab Results - Last 24 Hours (Table) 07/19/20 07/20/20 07/20/20 Range/Units 20:45 07:06 07:11 RBC 3.54 L (3.80-5.40) m/uL Hgb 10.9 L (11.4-16.0) gm/dL Hct 33.9 L (34.0-46.0) % Neutrophils # 7.8 H (1.3-7.7) k/uL Lymphocytes # 0.6 L (1.0-4.8) k/uL BUN (9.0-27.0) mg/dL Est GFR (CKD-EPI)AfAm (60.0-200.0) Est GFR (CKD-EPI)NonAf (60.0-200.0) BUN/Creatinine Ratio (12.00-20.00) Ratio Glucose (70-110) mg/dL POC Glucose (mg/dL) 225 H 179 H (75-99) mg/dL Total Protein (6.2-8.2) g/dL Albumin (3.80-4.90) g/dL 07/20/20 07/20/20 Range/Units 07:11 11:07 RBC (3.80-5.40) m/uL Hgb (11.4-16.0) gm/dL Hct (34.0-46.0) % Neutrophils # (1.3-7.7) k/uL Lymphocytes # (1.0-4.8) k/uL BUN 29.0 H (9.0-27.0) mg/dL Est GFR (CKD-EPI)AfAm 39.9 L (60.0-200.0) Est GFR (CKD-EPI)NonAf 34.4 L (60.0-200.0) BUN/Creatinine Ratio 20.71 H (12.00-20.00) Ratio Glucose 199 H (70-110) mg/dL POC Glucose (mg/dL) 148 H (75-99) mg/dL Total Protein 5.3 L (6.2-8.2) g/dL Albumin 3.30 L (3.80-4.90) g/dL H & H 07/18/20 07/20/20 Range/Units 15:12 07:11 Hgb 11.6 10.9 L (11.4-16.0) gm/dL Hct 36.2 33.9 L (34.0-46.0) % Coagulation 07/18/20 Range/Units 15:12 INR 1.3 H (<1.2) Result Diagrams: 07/20/20 07:11 07/20/20 07:11 Assessment and Plan Assessment: Assessment: Severe T6 wedging compression fracture deformy with approximateky 80% height loss of indeterminate age Mild T7 wedging compression fracture deformy of indeterminate age Severe shortness of breath with evidence of pulmonary hypertension S/P right lower quadrant ventral hernia repair with small bowel obstruction resection with primary anastomosis COPD History of atrial fibrillation currently on Eliquis (1) T6 vertebral fracture Current Visit: Yes Status: Acute Code(s): S22.059A - UNSP FRACTURE OF T5-T6 VERTEBRA, INIT FOR CLOS FX SNOMED Code(s): 684921284 (2) T7 vertebral fracture Current Visit: Yes Status: Acute Code(s): S22.069A - UNSP FRACTURE OF T7-T8 VERTEBRA, INIT FOR CLOS FX SNOMED Code(s): 058299108 (3) Bilateral lower extremity edema Current Visit: No Status: Acute Code(s): R60.0 - LOCALIZED EDEMA SNOMED Code(s): 205122268 (4) COPD (chronic obstructive pulmonary disease) Current Visit: No Status: Acute Code(s): J44.9 - CHRONIC OBSTRUCTIVE PULMONARY DISEASE, UNSPECIFIED SNOMED Code(s): 52342989 (5) SOB (shortness of breath) Current Visit: Yes Status: Acute Code(s): R06.02 - SHORTNESS OF BREATH SNOMED Code(s): 020899588 (6) Atrial fibrillation Current Visit: Yes Status: Acute Code(s): I48.91 - UNSPECIFIED ATRIAL FIBRILLATION SNOMED Code(s): 17099208 (7) S/P hernia repair Current Visit: Yes Status: Acute Code(s): Z98.890 - OTHER SPECIFIED POSTPROCEDURAL STATES; Z87.19 - PERSONAL HISTORY OF OTHER DISEASES OF THE DIGESTIVE SYSTEM SNOMED Code(s): 55115318422337 (8) Status post small bowel resection Current Visit: Yes Status: Acute Code(s): Z90.49 - ACQUIRED ABSENCE OF OTHER SPECIFIED PARTS OF DIGESTIVE TRACT SNOMED Code(s): 540710958345555 Plan: Plan: 1. After physical examination the patient, reviewing of imaging, and further discussion with the patient, we will plan to continue conservative treatment at this time. Patient does have some evidence of progression of her T6 and T7 compression fracture deformities as compared to imaging taken on 04/01/2020. Patient did sustain a fall approximately 1 week ago but has not had any increased pain since that time. She is not currently experiencing any thoracic pain or any thoracic radiculopathy. She does not experience increased pain with coughing or sneezing. Her worsening fractures were incidentally found on CT i maging while the patient was been being evaluated for her shortness of breath. Patient does have some chronic lower extremity radiculopathy symptoms do not correlate with her thoracic compression fracture deformities. Patient is also known to have previously undergone a right lower quadrant ventral hernia repair with small bowel obstruction resection with primary anastomosis performed by Dr. Coto on 07/09/2020. Patient has had some difficulty with her shortness of breath as well. Patient states with her recent surgical intervention and more recent shortness of breath, she feels these medical diagnoses are of greater importance than her chronic lower extremity symptoms. She does not feel she needs any specific treatment regards to her thoracic spine. She is not currently experiencing any symptoms in regards to her thoracic spine. From an orthopedic spine standpoint, the patient is clear for discharge. We'll plan have her follow-up with Kwadwo Mckeon PA-C or Dr. Eduardo Denton at [facility] in approximately 3 weeks for further evaluation. 2. Patient will continue to be seen examined by multiple other medical providers including medicine, general surgery, and pulmonology Time with Patient: Greater than 30 (With obtaining history, physical examination, reviewing of imaging, and dictation)
[2020-07-20 17:10] LABS: Glucose,Whole Blood 220 mg/dL (75-99)
[2020-07-20 20:18] LABS: Glucose,Whole Blood 253 mg/dL (75-99)
[2020-07-20] MEDS: MONTELUKAST 10 MG TAB PO SCH (21:36)
[2020-07-20] MEDS: LATANOPROST 0.005% OPHTH DROPS 2.5 ML BTL RIGHT EYE SCH (21:37)
[2020-07-21] MEDS: HYDROcodone/APAP 10-325MG 1 EACH TAB PO PRN ×2 (06:23→21:47)
[2020-07-21] MEDS: methylPREDNISolone SOD SUCCI 125 MG/2 ML VIAL IV SCH ×3 (06:24→17:03)
[2020-07-21 07:29] LABS: Glucose,Whole Blood 206 mg/dL (75-99)
[2020-07-21] MEDS: IPRATROPIUM-ALBUTEROL 3 ML NEB INHALATION SCH ×4 (07:31→20:45)
[2020-07-21 07:55] LABS: Basophils % (A) 0 %; Eosinophils % (A) 0 %; HCT 33.1 % (34.0-46.0); HGB 10.6 gm/dL (11.4-16.0); Hypochromasia Slight; Lymphocytes # (A) 0.5 k/uL (1.0-4.8); Lymphocytes % (A) 6 %; MCH 30.7 pg (25.0-35.0); MCHC 31.9 g/dL (31.0-37.0); MCV 96.1 fL (80.0-100.0); Mean Platelet Volume 8.3; Monocytes # (A) 0.2 k/uL (0-1.0); Monocytes % (A) 2 %; Neutrophils % (A) 92 %; Platelet Count 245 k/uL (150-450); RBC 3.44 m/uL (3.80-5.40); RDW 14.8 % (11.5-15.5); WBC 8.7 k/uL (3.8-10.6)
[2020-07-21] MEDS: INSULIN ASPART (NovoLOG) 100 UNIT/ML VIAL SQ SCH ×4 (08:07→21:35)
[2020-07-21] MEDS: PANTOPRAZOLE 40 MG TABLET PO SCH (08:07)
[2020-07-21] MEDS: APIXABAN 2.5 MG TABLET PO SCH ×2 (08:08→21:34)
[2020-07-21] MEDS: diphenhydrAMINE 25 MG CAP PO SCH ×4 (08:08→21:34)
[2020-07-21] MEDS: ASCORBIC ACID 500 MG TAB PO SCH (08:08)
[2020-07-21] MEDS: FUROSEMIDE 10 MG/ML 4 ML VIAL IV SCH ×2 (08:08→21:35)
[2020-07-21] MEDS: CHOLECALCIFEROL 1,000 UNIT TAB PO SCH (08:08)
[2020-07-21] MEDS: GABAPENTIN 300 MG CAP PO SCH ×2 (08:09→21:34)
[2020-07-21] MEDS: MULTIVITAMINS, THERA 1 EACH TAB PO SCH (08:09)
[2020-07-21] MEDS: METOPROLOL TARTRATE 50 MG TAB PO SCH ×2 (08:09→21:34)
[2020-07-21] MEDS: POTASSIUM CHLORIDE ER 10 MEQ TAB.ER.PRT PO SCH (08:11)
[2020-07-21] MEDS: VITAMIN E (DL,TOCOPHERYL ACET) 400 UNIT CAP PO SCH (08:11)
--- NOTE | 2020-07-21 10:10 | P.PN ---
Subjective Progress Note Date: 07/21/20 Principal diagnosis: Shortness of breath This is a pleasant 85-year-old female patient was seen in the office as an outpatient with a chronic hypoxic respiratory failure and history of asthma and chronic diastolic congestive heart failure was admitted to the hospital with increasing shortness of breath as well as lower extremity edema and she was diagnosed with acute exacerbation of diastolic congestive heart failure as well as COPD exacerbation. She was seen today. She stated that "I feel better". The shortness of breath has improved. No symptoms of chest pain or chest discomfort but she continues to be on anticoagulation for the atrial fibrillation. She was started on Lasix yesterday. Pulmonary/critical care team on the case. Objective - Vital Signs Vital signs: Vital Signs Temp 97.6 F 07/21/20 04:45 Pulse 64 07/21/20 07:46 Resp 18 07/21/20 04:45 BP 135/75 07/21/20 04:45 Pulse Ox 99 07/21/20 04:45 Intake & Output 07/20/20 07/21/20 07/21/20 18:59 06:59 18:59 Intake Total 600 Output Total 100 Balance 600 -100 Weight 92 kg Intake: Oral 600 Output: Urine 100 Other: # Voids 3 2 # Bowel Movements 1 - Constitutional General appearance: Present: no acute distress - Respiratory Respiratory: bilateral: diminished - Cardiovascular Rhythm: regular Heart sounds: normal: S1, S2 - Labs CBC & Chem 7: 07/21/20 07:17 07/20/20 07:11 Labs: Abnormal Lab Results - Last 24 Hours (Table) 07/20/20 07/20/20 07/20/20 Range/Units 07:11 11:07 17:08 RBC (3.80-5.40) m/uL Hgb (11.4-16.0) gm/dL Hct (34.0-46.0) % Neutrophils # (1.3-7.7) k/uL Lymphocytes # (1.0-4.8) k/uL BUN 29.0 H (9.0-27.0) mg/dL Est GFR (CKD-EPI)AfAm 39.9 L (60.0-200.0) Est GFR (CKD-EPI)NonAf 34.4 L (60.0-200.0) BUN/Creatinine Ratio 20.71 H (12.00-20.00) Ratio Glucose 199 H (70-110) mg/dL POC Glucose (mg/dL) 148 H 220 H (75-99) mg/dL Total Protein 5.3 L (6.2-8.2) g/dL Albumin 3.30 L (3.80-4.90) g/dL 07/20/20 07/21/20 07/21/20 Range/Units 20:16 07:17 07:27 RBC 3.44 L (3.80-5.40) m/uL Hgb 10.6 L (11.4-16.0) gm/dL Hct 33.1 L (34.0-46.0) % Neutrophils # 8.0 H (1.3-7.7) k/uL Lymphocytes # 0.5 L (1.0-4.8) k/uL BUN (9.0-27.0) mg/dL Est GFR (CKD-EPI)AfAm (60.0-200.0) Est GFR (CKD-EPI)NonAf (60.0-200.0) BUN/Creatinine Ratio (12.00-20.00) Ratio Glucose (70-110) mg/dL POC Glucose (mg/dL) 253 H 206 H (75-99) mg/dL Total Protein (6.2-8.2) g/dL Albumin (3.80-4.90) g/dL Assessment and Plan Assessment: Assessment #1 acute exacerbation of chronic diastolic congestive heart failure #2 acute exacerbation of COPD #3 paroxysmal atrial fibrillation #4 history of permanent pacemaker Plan #1 continue the Lasix IV #2 monitor the kidney function and electrolytes #3 follow-up with the patient
[2020-07-21 11:48] LABS: African American GFR (CKD) 39.9 (60.0-200.0); Albumin 3.3 g/dL (3.80-4.90); Albumin/Globulin Ratio 1.83 (1.60-3.17); Anion Gap 6.7 mmol/L (4.00-12.00); BUN/Creat Ratio 27.14 Ratio (12.00-20.00); Calcium 8.8 mg/dL (8.7-10.3); Carbon Dioxide 32.3 mmol/L (21.6-31.8); Globulin 1.8 g/dL (1.6-3.3); Non-African American GFR(CKD) 34.4 (60.0-200.0); Potassium 4.3 mmol/L (3.5-5.5); Total Bilirubin 0.6 mg/dL (0.3-1.2); Total Protein 5.1 g/dL (6.2-8.2)
[2020-07-21 12:46] LABS: Glucose,Whole Blood 197 mg/dL (75-99)
--- NOTE | 2020-07-21 13:39 | P.PN ---
Subjective Progress Note Date: 07/21/20 Ssuan Bhatt, is an 85-year-old female who was recently admitted to [facility] with abdominal pain and evidence of bowel obstruction she underwent hernia surgery with Dr. Coto, she was discharged home in good condition however she started developing worsening shortness of breath and today she decided to call EMS and come back to the emergency room due to severe dyspnea. She was evaluated in the emergency room her vital exam on presentation revealed a temperature of 98 pulse 61 respiration 24 blood pressure 140/98 pulse ox 96% on 2 L nasal cannula her white blood count was 9.6 hemoglobin 11.6 platelet count 273 d-dimer was elevated at 1.25 BUN 28 creatinine 1.14 on exam patient was having scattered crackles in both lung maria with wheezing, her chest x-ray revealed evidence of pulmonary hypertension, otherwise no significant findings, chest CTA was done and revealed no evidence of pulmonary embolism patient had evidence of COPD and pulmonary fibrosis and multiple tho racic compression fractures that have progressed significantly compared to old exam there was new pleural thickening at the right lung base. Patient was admitted to telemetry floor she was started on IV Lasix echocardiogram was ordered cardiology consultation was requested also requesting pulmonary consultation and orthopedic surgery consultation in regard to vertebral fracture. Dr. Coto will be notified to follow-up patient was unable to keep her outpatient follow-up appointment with her. On review of systems patient is alert and oriented 3 she is sitting up at the edge of the bed she is [place] at rest but stated that she has severe shortness of breath with any activity otherwise she denies any complaints there is no fever or chills no headache or dizziness no chest pain no cough no nausea or vomiting no abdominal pain no diarrhea no blood in the stools no burning with urination no frequency or urgency and no hematuria. On 07/20/2020 patient is alert and oriented. Patient reports improvement with shortness of breath. Patient remains on IV Lasix per cardiology. pulmonary services also consulted. Patient remains on IV Solu-Medrol. Wound care services also consulted for lower leg wound. Patient denies chest pain. Patient denies nausea vomiting or diarrhea. Patient denies any urinary burning or frequency. On 07/21/2020 patient was seen and examined on the medical floor she is alert and oriented 3 in no distress, she is reporting improvement in her shortness of breath otherwise she denies any complaints , there is no fever or chills no headache or dizziness no chest pain no cough no nausea or vomiting no abdominal pain no diarrhea no blood in the stools no burning with urination no frequency or urgency and no hematuria Objective - Vital Signs Vital signs: Vital Signs Temp 97.6 F 07/21/20 04:45 Pulse 64 07/21/20 07:46 Resp 18 07/21/20 04:45 BP 135/75 07/21/20 04:45 Pulse Ox 99 07/21/20 04:45 Intake & Output 07/20/20 07/21/20 07/21/20 18:59 06:59 18:59 Intake Total 600 Output Total 100 Balance 600 -100 Weight 92 kg Intake: Oral 600 Output: Urine 100 Other: # Voids 3 2 # Bowel Movements 1 - Exam Head normocephalic Neck supple Lungs diminished bilaterally with some wheezing Heart regular rate and rhythm S1-S2, no rub or gallop Abdomen is soft nontender nondistended positive bowel sounds no hepatosplenomegaly Extremities no edema Neuro alert and orientated to 3 - Labs CBC & Chem 7: 07/21/20 07:17 07/21/20 07:17 Labs: Abnormal Lab Results - Last 24 Hours (Table) 07/20/20 07/20/20 07/20/20 Range/Units 07:11 11:07 17:08 RBC (3.80-5.40) m/uL Hgb (11.4-16.0) gm/dL Hct (34.0-46.0) % Neutrophils # (1.3-7.7) k/uL Lymphocytes # (1.0-4.8) k/uL BUN 29.0 H (9.0-27.0) mg/dL Est GFR (CKD-EPI)AfAm 39.9 L (60.0-200.0) Est GFR (CKD-EPI)NonAf 34.4 L (60.0-200.0) BUN/Creatinine Ratio 20.71 H (12.00-20.00) Ratio Glucose 199 H (70-110) mg/dL POC Glucose (mg/dL) 148 H 220 H (75-99) mg/dL Total Protein 5.3 L (6.2-8.2) g/dL Albumin 3.30 L (3.80-4.90) g/dL 07/20/20 07/21/20 07/21/20 Range/Units 20:16 07:17 07:27 RBC 3.44 L (3.80-5.40) m/uL Hgb 10.6 L (11.4-16.0) gm/dL Hct 33.1 L (34.0-46.0) % Neutrophils # 8.0 H (1.3-7.7) k/uL Lymphocytes # 0.5 L (1.0-4.8) k/uL BUN (9.0-27.0) mg/dL Est GFR (CKD-EPI)AfAm (60.0-200.0) Est GFR (CKD-EPI)NonAf (60.0-200.0) BUN/Creatinine Ratio (12.00-20.00) Ratio Glucose (70-110) mg/dL POC Glucose (mg/dL) 253 H 206 H (75-99) mg/dL Total Protein (6.2-8.2) g/dL Albumin (3.80-4.90) g/dL Assessment and Plan Plan: 1. Severe shortness of breath, there is evidence of pulmonary hypertension, will check echocardiogram, patient is receiving IV Lasix cardiology consultation was requested. 2-D echo completed showing an EF of 55-60% 2. Elevated d-dimer. Chest CTA negative for pulmonary embolism there is evide nce of COPD and pulmonary fibrosis pulmonary consultation will be requested 3. Multiple vertebral fractures, that have progressed significantly since previous exam in March of this year Will consult Dr. Denton 4. Recent history of bowel obstruction and hernia surgery by Dr Coto 5. Underlying history of atrial fibrillation maintained on Eliquis 6. Underlying history of hypertension 7. Evidence of COPD with exacerbation and wheezing this time patient was started on inhaled bronchodilators and IV steroids will continue awaiting pulmonary input At this time continue with IV Lasix Home medications reviewed and reordered Awaiting input from multiple specialist will follow closely will recheck labs in a.m. PT OT consulted
[2020-07-21 17:23] LABS: Glucose,Whole Blood 271 mg/dL (75-99)
--- NOTE | 2020-07-21 19:44 | P.PN ---
Subjective Progress Note Date: 07/21/20 Principal diagnosis: Acute diastolic heart failure likely related to A. 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 Severe COPD with possible exacerbation Acute on chronic hypoxic and hypercapnic respiratory failure Likely group 3 pulmonary hypertension Generalized weakness and medical debility Non-insulin diabetes mellitus/mild hyperglycemia likely related to steroids Status post ventral hernia repair with incarceration and 6 inch small bowel resection, patient appears to be stable from surgical standpoint 07/21/2020, patient seen eval examined during the rounds labs reviewed medications reviewed respiratory status remains stable patient is being diuresed her shortness of breath improved swelling in the lower extremity improved as well, compression stocking have been helping, oxygen saturation 100% on 2 L Ms. 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 and intermittently prednisone dependent as well as, recently patient was hospitalized for a ventral hernia which was incarcerated patient underwent surgery with this small portion of small bowel resection she recovered nicely with surgery during the process her CO2 remained stable in fact at the time of discharge she did was on baseline oxygen without any chest complaint, stable shortness of breath, patient came into the hospital with progressive shortness of breath started about 1-2 days ago along with intermittent wheezing, patient was noted to have slightly elevated blood pressure than baseline however her oxygen saturation was stable 96%, chest x-ray continued to show extensive COPD along with chronic changes and compression fracture of thoracic spine at different levels, she also underwent computed tomography scan of the chest was negative for pulmonary embolism however continue show findings as mentioned above and interstitial edema suggestive of fluid overload/early CHF, her labs were significant for normal white cell count, slightly elevated creatinine level, BNP is over 6000, pending cardiology evaluation patient also noted to have A. fib with RVR which however has improved now with Lasix Objective - Vital Signs Vital signs: Vital Signs Temp 97.7 F 07/21/20 15:00 Pulse 68 07/21/20 16:43 Resp 18 07/21/20 16:00 BP 149/69 07/21/20 15:00 Pulse Ox 100 07/21/20 15:00 Intake & Output 07/21/20 07/21/20 07/22/20 06:59 18:59 06:59 Intake Total 1440 Output Total 100 100 Balance -100 1340 Weight 92 kg Intake: Oral 1440 Output: Urine 100 100 Other: # Voids 2 2 # Bowel Movements 1 - Exam - Constitutional General appearance: average body habitus, disheveled, mild distress - EENT Eyes: PERRLA Ears: bilateral: normal - Neck Carotids: bilateral: upstroke normal - Respiratory Respiratory: bilateral: diminished, rales (Bilateral basal) - Cardiovascular Rhythm: irregularly irregular Heart sounds: normal: S1, S2 - Gastrointestinal General gastrointestinal: normal bowel sounds, soft - Integumentary Integumentary: normal turgor - Neurologic Neurologic: CNII-XII intact - Musculoskeletal Musculoskeletal: gait normal, generalized weakness - Psychiatric Psychiatric: A&O x's 3, appropriate affect, intact judgment & insight - Labs CBC & Chem 7: 07/21/20 07:17 07/21/20 07:17 Labs: Abnormal Lab Results - Last 24 Hours (Table) 07/20/20 07/21/20 07/21/20 Range/Units 20:16 07:17 07:17 RBC 3.44 L (3.80-5.40) m/uL Hgb 10.6 L (11.4-16.0) gm/dL Hct 33.1 L (34.0-46.0) % Neutrophils # 8.0 H (1.3-7.7) k/uL Lymphocytes # 0.5 L (1.0-4.8) k/uL Carbon Dioxide 32.3 H (21.6-31.8) mmol/L BUN 38.0 H (9.0-27.0) mg/dL Est GFR (CKD-EPI)AfAm 39.9 L (60.0-200.0) Est GFR (CKD-EPI)NonAf 34.4 L (60.0-200.0) BUN/Creatinine Ratio 27.14 H (12.00-20.00) Ratio Glucose 193 H (70-110) mg/dL POC Glucose (mg/dL) 253 H (75-99) mg/dL Total Protein 5.1 L (6.2-8.2) g/dL Albumin 3.30 L (3.80-4.90) g/dL 07/21/20 07/21/20 07/21/20 Range/Units 07:27 12:44 17:21 RBC (3.80-5.40) m/uL Hgb (11.4-16.0) gm/dL Hct (34.0-46.0) % Neutrophils # (1.3-7.7) k/uL Lymphocytes # (1.0-4.8) k/uL Carbon Dioxide (21.6-31.8) mmol/L BUN (9.0-27.0) mg/dL Est GFR (CKD-EPI)AfAm (60.0-200.0) Est GFR (CKD-EPI)NonAf (60.0-200.0) BUN/Creatinine Ratio (12.00-20.00) Ratio Glucose (70-110) mg/dL POC Glucose (mg/dL) 206 H 197 H 271 H (75-99) mg/dL Total Protein (6.2-8.2) g/dL Albumin (3.80-4.90) g/dL Assessment and Plan Assessment: Acute diastolic heart failure likely related to A. 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 fib RVR along with diastolic heart failure Continue supplemental oxygen Deep breathing exercises incentive spirometry Further recommendations pending plan of care as per clinical response of the patient Monitor renal functions closely Time with Patient: Greater than 30
[2020-07-21 21:16] LABS: Glucose,Whole Blood 217 mg/dL (75-99)
[2020-07-21] MEDS: MONTELUKAST 10 MG TAB PO SCH (21:34)
[2020-07-21] MEDS: LATANOPROST 0.005% OPHTH DROPS 2.5 ML BTL RIGHT EYE SCH (21:35)
[2020-07-22] MEDS: methylPREDNISolone SOD SUCCI 125 MG/2 ML VIAL IV SCH ×4 (00:22→18:39)
[2020-07-22] MEDS: HYDROcodone/APAP 10-325MG 1 EACH TAB PO PRN ×2 (05:20→18:38)
[2020-07-22 07:18] LABS: Glucose,Whole Blood 182 mg/dL (75-99)
[2020-07-22] MEDS: IPRATROPIUM-ALBUTEROL 3 ML NEB INHALATION SCH ×4 (08:07→20:30)
--- NOTE | 2020-07-22 09:51 | P.PN ---
Subjective Progress Note Date: 07/22/20 Principal diagnosis: Shortness of breath This is a pleasant 85-year-old female patient was seen in the office as an outpatient with a chronic hypoxic respiratory failure and history of asthma and chronic diastolic congestive heart failure was admitted to the hospital with increasing shortness of breath as well as lower extremity edema and she was diagnosed with acute exacerbation of diastolic congestive heart failure as well as COPD exacerbation. The patient was seen today. He is asymptomatic from a cardiovascular standpoint of view. He has been maintaining normal sinus mechanism. He is hemodynamically stable. He is on beta rios with metoprolol as well as oral anticoagulation. From a cardiovascular standpoint of view, the patient is a stable and will follow-up with him on when necessary case Objective - Vital Signs Vital signs: Vital Signs Temp 97.4 F L 07/22/20 04:50 Pulse 60 07/22/20 04:50 Resp 17 07/22/20 04:50 BP 168/82 07/22/20 04:50 Pulse Ox 98 07/22/20 04:50 Intake & Output 07/21/20 07/22/20 07/22/20 18:59 06:59 18:59 Intake Total 1440 Output Total 100 Balance 1340 Weight 95 kg Intake: Oral 1440 Output: Urine 100 Other: # Voids 2 1 - Constitutional General appearance: Present: no acute distress - Respiratory Respiratory: bilateral: CTA - Cardiovascular Rhythm: regular Heart sounds: normal: S1, S2 - Labs CBC & Chem 7: 07/21/20 07:17 07/21/20 07:17 Labs: Abnormal Lab Results - Last 24 Hours (Table) 07/21/20 07/21/20 07/21/20 Range/Units 07:17 12:44 17:21 Carbon Dioxide 32.3 H (21.6-31.8) mmol/L BUN 38.0 H (9.0-27.0) mg/dL Est GFR (CKD-EPI)AfAm 39.9 L (60.0-200.0) Est GFR (CKD-EPI)NonAf 34.4 L (60.0-200.0) BUN/Creatinine Ratio 27.14 H (12.00-20.00) Ratio Glucose 193 H (70-110) mg/dL POC Glucose (mg/dL) 197 H 271 H (75-99) mg/dL Total Protein 5.1 L (6.2-8.2) g/dL Albumin 3.30 L (3.80-4.90) g/dL 07/21/20 07/22/20 Range/Units 21:13 07:17 Carbon Dioxide (21.6-31.8) mmol/L BUN (9.0-27.0) mg/dL Est GFR (CKD-EPI)AfAm (60.0-200.0) Est GFR (CKD-EPI)NonAf (60.0-200.0) BUN/Creatinine Ratio (12.00-20.00) Ratio Glucose (70-110) mg/dL POC Glucose (mg/dL) 217 H 182 H (75-99) mg/dL Total Protein (6.2-8.2) g/dL Albumin (3.80-4.90) g/dL Assessment and Plan Assessment: Assessment #1 acute exacerbation of chronic diastolic congestive heart failure #2 acute exacerbation of COPD #3 paroxysmal atrial fibrillation #4 history of permanent pacemaker Plan #1 continue the current medical regimen #2 DC IV Lasix and start the patient on Lasix by mouth #3 follow-up with the patient on when necessary case
--- NOTE | 2020-07-22 09:55 | P.PN ---
Subjective Progress Note Date: 07/22/20 Principal diagnosis: Shortness of breath This is a pleasant 85-year-old female patient was seen in the office as an outpatient with a chronic hypoxic respiratory failure and history of asthma and chronic diastolic congestive heart failure was admitted to the hospital with increasing shortness of breath as well as lower extremity edema and she was diagnosed with acute exacerbation of diastolic congestive heart failure as well as COPD exacerbation. The patient was seen today. She is feeling better indeterminable shortness of breath. No symptoms of chest pain or chest discomfort. She is hemodynamically stable and she continues to be on Lasix IV. There is no PND this morning and would order a BMP to see if we can't continue the patient on the Lasix. We'll continue following up with her. Objective - Vital Signs Vital signs: Vital Signs Temp 97.4 F L 07/22/20 04:50 Pulse 60 07/22/20 04:50 Resp 17 07/22/20 04:50 BP 168/82 07/22/20 04:50 Pulse Ox 98 07/22/20 04:50 Intake & Output 07/21/20 07/22/20 07/22/20 18:59 06:59 18:59 Intake Total 1440 Output Total 100 Balance 1340 Weight 95 kg Intake: Oral 1440 Output: Urine 100 Other: # Voids 2 1 - Constitutional General appearance: Present: no acute distress - Respiratory Respiratory: bilateral: diminished - Cardiovascular Heart sounds: normal: S1, S2 - Labs CBC & Chem 7: 07/21/20 07:17 07/21/20 07:17 Labs: Abnormal Lab Results - Last 24 Hours (Table) 07/21/20 07/21/20 07/21/20 Range/Units 07:17 12:44 17:21 Carbon Dioxide 32.3 H (21.6-31.8) mmol/L BUN 38.0 H (9.0-27.0) mg/dL Est GFR (CKD-EPI)AfAm 39.9 L (60.0-200.0) Est GFR (CKD-EPI)NonAf 34.4 L (60.0-200.0) BUN/Creatinine Ratio 27.14 H (12.00-20.00) Ratio Glucose 193 H (70-110) mg/dL POC Glucose (mg/dL) 197 H 271 H (75-99) mg/dL Total Protein 5.1 L (6.2-8.2) g/dL Albumin 3.30 L (3.80-4.90) g/dL 07/21/20 07/22/20 Range/Units 21:13 07:17 Carbon Dioxide (21.6-31.8) mmol/L BUN (9.0-27.0) mg/dL Est GFR (CKD-EPI)AfAm (60.0-200.0) Est GFR (CKD-EPI)NonAf (60.0-200.0) BUN/Creatinine Ratio (12.00-20.00) Ratio Glucose (70-110) mg/dL POC Glucose (mg/dL) 217 H 182 H (75-99) mg/dL Total Protein (6.2-8.2) g/dL Albumin (3.80-4.90) g/dL Assessment and Plan Assessment: Assessment #1 acute exacerbation of chronic diastolic congestive heart failure #2 acute exacerbation of COPD #3 paroxysmal atrial fibrillation #4 history of permanent pacemaker Plan #1 continue the current medical regimen #2 continue Lasix IV and continue monitor the kidney function #3 follow-up with the patient
[2020-07-22 10:16] LABS: ALT 21 U/L (4-34); AST 25 U/L (14-36); African American GFR (CKD) 33 (>60 ml/min/1.73 sqM); Albumin 3.1 g/dL (3.5-5.0); Albumin/Globulin Ratio 1.2; Alkaline Phosphatase 60 U/L (38-126); Anion Gap 4 mmol/L; Blood Urea Nitrogen 45 mg/dL (7-17); Calcium 8.3 mg/dL (8.4-10.2); Carbon Dioxide 31 mmol/L (22-30); Chloride 98 mmol/L (98-107); Globulin 2.6 g/dL; Glucose 202 mg/dL (74-99); Non-African American GFR(CKD) 29 (>60 ml/min/1.73 sqM); Potassium 4.5 mmol/L (3.5-5.1); Sodium 133 mmol/L (137-145); Total Bilirubin 0.9 mg/dL (0.2-1.3); Total Protein 5.7 g/dL (6.3-8.2)
--- NOTE | 2020-07-22 10:24 | P.PN ---
Subjective Progress Note Date: 07/22/20 Susan Bhatt, is an 85-year-old female who was recently admitted to [facility] with abdominal pain and evidence of bowel obstruction she underwent hernia surgery with Dr. Coto, she was discharged home in good condition however she started developing worsening shortness of breath and today she decided to call EMS and come back to the emergency room due to severe dyspnea. She was evaluated in the emergency room her vital exam on presentation revealed a temperature of 98 pulse 61 respiration 24 blood pressure 140/98 pulse ox 96% on 2 L nasal cannula her white blood count was 9.6 hemoglobin 11.6 platelet count 273 d-dimer was elevated at 1.25 BUN 28 creatinine 1.14 on exam patient was having scattered crackles in both lung maria with wheezing, her chest x-ray revealed evidence of pulmonary hypertension, otherwise no significant findings, chest CTA was done and revealed no evidence of pulmonary embolism patient had evidence of COPD and pulmonary fibrosis and multiple tho racic compression fractures that have progressed significantly compared to old exam there was new pleural thickening at the right lung base. Patient was admitted to telemetry floor she was started on IV Lasix echocardiogram was ordered cardiology consultation was requested also requesting pulmonary consultation and orthopedic surgery consultation in regard to vertebral fracture. Dr. Coto will be notified to follow-up patient was unable to keep her outpatient follow-up appointment with her. On review of systems patient is alert and oriented 3 she is sitting up at the edge of the bed she is [place] at rest but stated that she has severe shortness of breath with any activity otherwise she denies any complaints there is no fever or chills no headache or dizziness no chest pain no cough no nausea or vomiting no abdominal pain no diarrhea no blood in the stools no burning with urination no frequency or urgency and no hematuria. On 07/20/2020 patient is alert and oriented. Patient reports improvement with shortness of breath. Patient remains on IV Lasix per cardiology. pulmonary services also consulted. Patient remains on IV Solu-Medrol. Wound care services also consulted for lower leg wound. Patient denies chest pain. Patient denies nausea vomiting or diarrhea. Patient denies any urinary burning or frequency. On 07/21/2020 patient was seen and examined on the medical floor she is alert and oriented 3 in no distress, she is reporting improvement in her shortness of breath otherwise she denies any complaints , there is no fever or chills no headache or dizziness no chest pain no cough no nausea or vomiting no abdominal pain no diarrhea no blood in the stools no burning with urination no frequency or urgency and no hematuria On 07/22/2020 patient is alert and oriented 3. Patient reports her shortness of breath is better does but does seem short of breath upon conversation. Patient states she is eager to be discharged home tomorrow. Educated patient that we will have to assess and discuss with consulting providers about possible discharge tomorrow. Patient remains on IV Lasix and IV steroids pulmonary and cardiology services are following. Creatinine increasing to 1.64 and bun 45. We'll continue to monitor closely. Patient denies chest pain. Patient denies nausea vomiting or diarrhea. Patient denies any urinary burning or frequency Objective - Vital Signs Vital signs: Vital Signs Temp 97.5 F L 07/21/20 21:11 Pulse 60 07/22/20 00:00 Resp 18 07/22/20 00:00 BP 122/58 07/21/20 21:11 Pulse Ox 100 07/21/20 21:11 Intake & Output 07/21/20 07/21/20 07/22/20 06:59 18:59 06:59 Intake Total 1440 Output Total 100 100 Balance -100 1340 Weight 92 kg 95 kg Intake: Oral 1440 Output: Urine 100 100 Other: # Voids 2 2 1 # Bowel Movements 1 - Exam Head normocephalic Neck supple Lungs diminished bilaterally with some wheezing Heart regular rate and rhythm S1-S2, no rub or gallop Abdomen is soft nontender nondistended positive bowel sounds no hepatosplenomegaly Extremities no edema Neuro alert and orientated to 3 - Labs CBC & Chem 7: 07/21/20 07:17 07/22/20 09:33 Labs: Abnormal Lab Results - Last 24 Hours (Table) 07/21/20 07/21/20 07/21/20 Range/Units 07:17 07:17 07:27 RBC 3.44 L (3.80-5.40) m/uL Hgb 10.6 L (11.4-16.0) gm/dL Hct 33.1 L (34.0-46.0) % Neutrophils # 8.0 H (1.3-7.7) k/uL Lymphocytes # 0.5 L (1.0-4.8) k/uL Carbon Dioxide 32.3 H (21.6-31.8) mmol/L BUN 38.0 H (9.0-27.0) mg/dL Est GFR (CKD-EPI)AfAm 39.9 L (60.0-200.0) Est GFR (CKD-EPI)NonAf 34.4 L (60.0-200.0) BUN/Creatinine Ratio 27.14 H (12.00-20.00) Ratio Glucose 193 H (70-110) mg/dL POC Glucose (mg/dL) 206 H (75-99) mg/dL Total Protein 5.1 L (6.2-8.2) g/dL Albumin 3.30 L (3.80-4.90) g/dL 07/21/20 07/21/20 07/21/20 Range/Units 12:44 17:21 21:13 RBC (3.80-5.40) m/uL Hgb (11.4-16.0) gm/dL Hct (34.0-46.0) % Neutrophils # (1.3-7.7) k/uL Lymphocytes # (1.0-4.8) k/uL Carbon Dioxide (21.6-31.8) mmol/L BUN (9.0-27.0) mg/dL Est GFR (CKD-EPI)AfAm (60.0-200.0) Est GFR (CKD-EPI)NonAf (60.0-200.0) BUN/Creatinine Ratio (12.00-20.00) Ratio Glucose (70-110) mg/dL POC Glucose (mg/dL) 197 H 271 H 217 H (75-99) mg/dL Total Protein (6.2-8.2) g/dL Albumin (3.80-4.90) g/dL Assessment and Plan Plan: 1. Severe shortness of breath, there is evidence of pulmonary hypertension, will check echocardiogram, patient is receiving IV Lasix cardiology consultation was requested. 2-D echo completed showing an EF of 55-60% 2. Elevated d-dimer. Chest CTA negative for pulmonary embolism there is evidence of COPD and pulmonary fibrosis/ 3. Multiple vertebral fractures, that have progressed significantly since previous exam in March of this year Will consult Dr. Denton 4. Recent history of bowel obstruction and hernia surgery by Dr Coto 5. Underlying history of atrial fibrillation maintained on Eliquis 6. Underlying history of hypertension 7. Evidence of COPD with exacerbation and wheezing this time patient was started on inhaled bronchodilators and IV steroids. Patient remains on IV steroids, pulmonary services are following 8. Acute kidney injury. Creatinine elevated at 1.64 and bun 45. Continue to monitor closely hopefully transition patient off IV Lasix tomorrow DVT prophylaxis eliquis. GI prophylaxis Protonix At this time continue with IV Lasix Home medications reviewed and reordered Cardiology and pulmonary services are following
[2020-07-22] MEDS: POTASSIUM CHLORIDE ER 10 MEQ TAB.ER.PRT PO SCH (10:50)
[2020-07-22] MEDS: MULTIVITAMINS, THERA 1 EACH TAB PO SCH (10:50)
[2020-07-22] MEDS: APIXABAN 2.5 MG TABLET PO SCH (10:51)
[2020-07-22] MEDS: diphenhydrAMINE 25 MG CAP PO SCH ×3 (10:51→18:38)
[2020-07-22] MEDS: CHOLECALCIFEROL 1,000 UNIT TAB PO SCH (10:51)
[2020-07-22] MEDS: METOPROLOL TARTRATE 50 MG TAB PO SCH (10:51)
[2020-07-22] MEDS: ASCORBIC ACID 500 MG TAB PO SCH (10:52)
[2020-07-22] MEDS: PANTOPRAZOLE 40 MG TABLET PO SCH (10:52)
[2020-07-22] MEDS: VITAMIN E (DL,TOCOPHERYL ACET) 400 UNIT CAP PO SCH (10:53)
[2020-07-22] MEDS: INSULIN ASPART (NovoLOG) 100 UNIT/ML VIAL SQ SCH ×3 (10:55→18:39)
[2020-07-22] MEDS: GABAPENTIN 300 MG CAP PO SCH (10:56)
[2020-07-22 11:43] LABS: Glucose,Whole Blood 182 mg/dL (75-99)
--- NOTE | 2020-07-22 14:05 | P.PN ---
Subjective Progress Note Date: 07/22/20 Principal diagnosis: Acute diastolic heart failure likely related to A. 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 Severe COPD with possible exacerbation Acute on chronic hypoxic and hypercapnic respiratory failure Likely group 3 pulmonary hypertension Generalized weakness and medical debility Non-insulin diabetes mellitus/mild hyperglycemia likely related to steroids Status post ventral hernia repair with incarceration and 6 inch small bowel resection, patient appears to be stable from surgical standpoint 07/22/2020, patient seen eval examined during the rounds labs reviewed medications reviewed breathing comfortably, denies any chest pain, remains on supplemental oxygen oxygen saturation is no 90 is, care plan discussed with the patient at length, noted BUN/creatinine up likely due to diuresis 07/21/2020, patient seen eval examined during the rounds labs reviewed medications reviewed respiratory status remains stable patient is being diuresed her shortness of breath improved swelling in the lower extremity improved as well, compression stocking have been helping, oxygen saturation 100% on 2 L Ms. 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 and intermittently prednisone dependent as well as, recently patient was hospitalized for a ventral hernia which was incarcerated patient underwent surgery with this small portion of small bowel resection she recovered nicely with surgery during the process her CO2 remained stable in fact at the time of discharge she did was on baseline oxygen without any chest complaint, stable shortness of breath, patient came into the hospital with progressive shortness of breath started about 1-2 days ago along with intermittent wheezing, patient was noted to have slightly elevated blood pressure than baseline however her oxygen saturation was stable 96%, chest x-ray continued to show extensive COPD along with chronic changes and compression fracture of thoracic spine at different levels, she also underwent computed tomography scan of the chest was negative for pulmonary embolism however continue show findings as mentioned above and interstitial edema suggestive of fluid overload/early CHF, her labs were significant for normal white cell count, slightly elevated creatinine level, BNP is over 6000, pending cardiology evaluation patient also noted to have A. fib with RVR which however has improved now with Lasix Objective - Vital Signs Vital signs: Vital Signs Temp 97.9 F 07/22/20 12:17 Pulse 60 07/22/20 12:17 Resp 18 07/22/20 12:17 BP 162/85 07/22/20 12:17 Pulse Ox 98 07/22/20 12:17 Intake & Output 07/21/20 07/22/20 07/22/20 18:59 06:59 18:59 Intake Total 1440 Output Total 100 Balance 1340 Weight 95 kg Intake: Oral 1440 Output: Urine 100 Other: # Voids 2 1 - Exam - Constitutional General appearance: average body habitus, disheveled, mild distress - EENT Eyes: PERRLA Ears: bilateral: normal - Neck Carotids: bilateral: upstroke normal - Respiratory Respiratory: bilateral: diminished, rales (Bilateral basal) - Cardiovascular Rhythm: irregularly irregular Heart sounds: normal: S1, S2 - Gastrointestinal General gastrointestinal: normal bowel sounds, soft - Integumentary Integumentary: normal turgor - Neurologic Neurologic: CNII-XII intact - Musculoskeletal Musculoskeletal: gait normal, generalized weakness - Psychiatric Psychiatric: A&O x's 3, appropriate affect, intact judgment & insight - Labs CBC & Chem 7: 07/21/20 07:17 07/22/20 09:33 Labs: Abnormal Lab Results - Last 24 Hours (Table) 07/21/20 07/21/20 07/22/20 Range/Units 17:21 21:13 07:17 Sodium (137-145) mmol/L Carbon Dioxide (22-30) mmol/L BUN (7-17) mg/dL Creatinine (0.52-1.04) mg/dL Glucose (74-99) mg/dL POC Glucose (mg/dL) 271 H 217 H 182 H (75-99) mg/dL Calcium (8.4-10.2) mg/dL Total Protein (6.3-8.2) g/dL Albumin (3.5-5.0) g/dL 07/22/20 07/22/20 Range/Units 09:33 11:41 Sodium 133 L (137-145) mmol/L Carbon Dioxide 31 H (22-30) mmol/L BUN 45 H (7-17) mg/dL Creatinine 1.64 H (0.52-1.04) mg/dL Glucose 202 H (74-99) mg/dL POC Glucose (mg/dL) 182 H (75-99) mg/dL Calcium 8.3 L (8.4-10.2) mg/dL Total Protein 5.7 L (6.3-8.2) g/dL Albumin 3.1 L (3.5-5.0) g/dL Assessment and Plan Assessment: Acute kidney injury Acute diastolic heart failure likely related to A. 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 Severe COPD with possible exacerbation Acute on chronic hypoxic and hypercapnic respiratory failure Likely group 3 pulmonary hypertension Generalized weakness and medical debility Non-insulin diabetes mellitus/mild hyperglycemia likely related to steroids Status post ventral hernia repair with incarceration and 6 inch small bowel resection, patient appears to be stable from surgical standpoint Plan: Continue bronchodilator Oral direct anticoagulation Continue gentle diuresis, recommend to adjust medicine as per renal function IV steroids can be lowered to oral prednisone with a quick taper Maximal medical therapy for A. fib RVR along with diastolic heart failure Continue supplemental oxygen Deep breathing exercises incentive spirometry Further recommendations pending plan of care as per clinical response of the patient Monitor renal functions closely Time with Patient: Greater than 30
[2020-07-22] MEDS: FUROSEMIDE 10 MG/ML 4 ML VIAL IV SCH (15:23)
[2020-07-22] MEDS ORDERED: FUROSEMIDE 40 MG TAB PO SCH (16:00)
[2020-07-22 17:23] LABS: Glucose,Whole Blood 213 mg/dL (75-99)
[2020-07-22 21:37] LABS: Glucose,Whole Blood 267 mg/dL (75-99)
[2020-07-23] MEDS: APIXABAN 2.5 MG TABLET PO SCH ×2 (00:31→07:59)
[2020-07-23] MEDS: FUROSEMIDE 10 MG/ML 4 ML VIAL IV SCH ×2 (00:32→08:00)
[2020-07-23] MEDS: MONTELUKAST 10 MG TAB PO SCH (00:32)
[2020-07-23] MEDS: INSULIN ASPART (NovoLOG) 100 UNIT/ML VIAL SQ SCH ×3 (00:32→14:22)
[2020-07-23] MEDS: METOPROLOL TARTRATE 50 MG TAB PO SCH ×2 (00:32→07:59)
[2020-07-23] MEDS: diphenhydrAMINE 25 MG CAP PO SCH ×3 (00:32→14:21)
[2020-07-23] MEDS: GABAPENTIN 300 MG CAP PO SCH ×2 (00:32→07:59)
[2020-07-23] MEDS: LATANOPROST 0.005% OPHTH DROPS 2.5 ML BTL RIGHT EYE SCH (00:32)
[2020-07-23] MEDS: methylPREDNISolone SOD SUCCI 125 MG/2 ML VIAL IV SCH ×3 (00:36→14:22)
[2020-07-23 05:16] LABS: Basophils % (A) 0 %; Eosinophils % (A) 0 %; HCT 34.7 % (34.0-46.0); HGB 10.7 gm/dL (11.4-16.0); Hypochromasia Slight; Lymphocytes # (A) 0.4 k/uL (1.0-4.8); Lymphocytes % (A) 6 %; MCH 29.6 pg (25.0-35.0); MCHC 30.9 g/dL (31.0-37.0); MCV 95.9 fL (80.0-100.0); Mean Platelet Volume 8.3; Monocytes # (A) 0.2 k/uL (0-1.0); Monocytes % (A) 2 %; Neutrophils # (A) 6.6 k/uL (1.3-7.7); Neutrophils % (A) 92 %; Platelet Count 257 k/uL (150-450); RBC 3.62 m/uL (3.80-5.40); RDW 14.9 % (11.5-15.5); WBC 7.2 k/uL (3.8-10.6)
[2020-07-23] MEDS: HYDROcodone/APAP 10-325MG 1 EACH TAB PO PRN ×2 (05:55→16:44)
[2020-07-23 07:34] LABS: Glucose,Whole Blood 218 mg/dL (75-99)
[2020-07-23] MEDS: CHOLECALCIFEROL 1,000 UNIT TAB PO SCH (07:59)
[2020-07-23] MEDS: ASCORBIC ACID 500 MG TAB PO SCH (07:59)
[2020-07-23] MEDS: POTASSIUM CHLORIDE ER 10 MEQ TAB.ER.PRT PO SCH (07:59)
[2020-07-23] MEDS: MULTIVITAMINS, THERA 1 EACH TAB PO SCH (07:59)
[2020-07-23] MEDS: PANTOPRAZOLE 40 MG TABLET PO SCH (08:00)
[2020-07-23] MEDS: VITAMIN E (DL,TOCOPHERYL ACET) 400 UNIT CAP PO SCH (08:00)
[2020-07-23] MEDS: IPRATROPIUM-ALBUTEROL 3 ML NEB INHALATION SCH ×3 (08:44→16:24)
[2020-07-23 09:33] LABS: African American GFR (CKD) 33.9 (60.0-200.0); Albumin 3.2 g/dL (3.80-4.90); Albumin/Globulin Ratio 1.78 (1.60-3.17); Anion Gap 6.3 mmol/L (4.00-12.00); BUN/Creat Ratio 32.5 Ratio (12.00-20.00); Calcium 8.5 mg/dL (8.7-10.3); Carbon Dioxide 32.7 mmol/L (21.6-31.8); Globulin 1.8 g/dL (1.6-3.3); Non-African American GFR(CKD) 29.3 (60.0-200.0); Potassium 4.1 mmol/L (3.5-5.5); Total Bilirubin 0.6 mg/dL (0.2-1.2)
--- NOTE | 2020-07-23 09:51 | P.PN ---
Subjective This is a pleasant 85-year-old female past medical history significant for chronic hypoxic respiratory failure, COPD, chronic diastolic heart failure, hypertension, paroxysmal atrial fibrillation status post ablation and permanent pacemaker implantation. She follows in the office with Dr. Trevizo. She is seen and examined sitting up in bed eating breakfast in no acute distress. She continues to be mildly dyspneic with conversation however states she feels back to her baseline. She denies worsening shortness of breath. She has no symptoms of chest pain, dizziness or palpitations. Blood pressure 159/88 heart rate 60 afebrile maintaining oxygen saturation on nasal cannula. Laboratory data reviewed, WBC 7.2, hemoglobin 10.7, platelets 257, sodium 140, potassium 4.1, creatinine 1.6. Currently maintained on Lasix 40 mg IV twice a day, Eliquis 2.5 mg twice a day, Lopressor 50 mg twice a day and daily potassium supplementation. GENERAL: Well-appearing, well-nourished and in no acute distress. NECK: Supple without JVD or thyromegaly. LUNGS: Expiratory wheezes bilaterally. Respiration equal and unlabored. No rales or rhonchi. HEART: Regular rate and rhythm without murmurs, rubs or gallops. S1 and S2 heard. EXTREMITIES: Normal range of motion, left lower extremity edema is Abran wrap in place, no swelling on the right. No clubbing or cyanosis. Peripheral pulses intact. ASSESSMENT Acute on chronic diastolic heart failure Acute exacerbation of COPD Paroxysmal atrial fibrillation on long-term anticoagulation with Eliquis. Currently in afib with controlled rates Permanent pacemaker implantation Acute kidney injury PLAN Discontinue IV diuretics, resume home dose of Bumex. Overall stable from a cardiac perspective. Follow-up in the office with Dr. Trevizo upon discharge. Nurse Practitioner note has been reviewed, I agree with a documented findings and plan of care. Patient was seen and examined. Objective - Vital Signs Vital signs: Vital Signs Temp 97.8 F 07/23/20 05:00 Pulse 60 07/23/20 08:50 Resp 20 07/23/20 08:00 BP 159/88 07/23/20 05:00 Pulse Ox 100 07/23/20 05:00 Intake & Output 07/22/20 07/23/20 07/23/20 18:59 06:59 18:59 Intake Total 575 Output Total 100 100 Balance 475 -100 Weight 93 kg Intake: Oral 575 Output: Urine 100 100 Other: # Voids 1 3 3 # Bowel Movements 1 - Labs CBC & Chem 7: 07/23/20 04:52 07/23/20 04:52 Labs: Abnormal Lab Results - Last 24 Hours (Table) 07/22/20 07/22/20 07/22/20 Range/Units 09:33 11:41 17:22 RBC (3.80-5.40) m/uL Hgb (11.4-16.0) gm/dL MCHC (31.0-37.0) g/dL Lymphocytes # (1.0-4.8) k/uL Sodium 133 L (137-145) mmol/L Carbon Dioxide 31 H (22-30) mmol/L BUN 45 H (7-17) mg/dL Creatinine 1.64 H (0.52-1.04) mg/dL Est GFR (CKD-EPI)AfAm (60.0-200.0) Est GFR (CKD-EPI)NonAf (60.0-200.0) BUN/Creatinine Ratio (12.00-20.00) Ratio Glucose 202 H (74-99) mg/dL POC Glucose (mg/dL) 182 H 213 H (75-99) mg/dL Calcium 8.3 L (8.4-10.2) mg/dL Total Protein 5.7 L (6.3-8.2) g/dL Albumin 3.1 L (3.5-5.0) g/dL 07/22/20 07/23/20 07/23/20 Range/Units 21:08 04:52 04:52 RBC 3.62 L (3.80-5.40) m/uL Hgb 10.7 L (11.4-16.0) gm/dL MCHC 30.9 L (31.0-37.0) g/dL Lymphocytes # 0.4 L (1.0-4.8) k/uL Sodium (137-145) mmol/L Carbon Dioxide 32.7 H (22-30) mmol/L BUN 52.0 H (7-17) mg/dL Creatinine 1.6 H (0.52-1.04) mg/dL Est GFR (CKD-EPI)AfAm 33.9 L (60.0-200.0) Est GFR (CKD-EPI)NonAf 29.3 L (60.0-200.0) BUN/Creatinine Ratio 32.50 H (12.00-20.00) Ratio Glucose 187 H (74-99) mg/dL POC Glucose (mg/dL) 267 H (75-99) mg/dL Calcium 8.5 L (8.4-10.2) mg/dL Total Protein 5.0 L (6.3-8.2) g/dL Albumin 3.20 L (3.5-5.0) g/dL 07/23/20 Range/Units 07:33 RBC (3.80-5.40) m/uL Hgb (11.4-16.0) gm/dL MCHC (31.0-37.0) g/dL Lymphocytes # (1.0-4.8) k/uL Sodium (137-145) mmol/L Carbon Dioxide (22-30) mmol/L BUN (7-17) mg/dL Creatinine (0.52-1.04) mg/dL Est GFR (CKD-EPI)AfAm (60.0-200.0) Est GFR (CKD-EPI)NonAf (60.0-200.0) BUN/Creatinine Ratio (12.00-20.00) Ratio Glucose (74-99) mg/dL POC Glucose (mg/dL) 218 H (75-99) mg/dL Calcium (8.4-10.2) mg/dL Total Protein (6.3-8.2) g/dL Albumin (3.5-5.0) g/dL
[2020-07-23 12:04] LABS: Glucose,Whole Blood 202 mg/dL (75-99)
[2020-07-23 12:45] VITALS: BP 139/76; RESP 18; TEMP 97.5
--- NOTE | 2020-07-23 13:44 | P.DS ---
Providers Date of admission: 07/18/20 19:28 Expected date of discharge: 07/23/20 Attending physician: Elham Kumar Consults: 07/19/20 13:22 Consult Physician Routine Consulting Provider: Kamilah Trotter Consult Reason/Comments: CHF Do you want consulting provider notified?: Yes 07/19/20 17:04 Consult Physician Routine Consulting Provider: Erum Denton Consult Reason/Comments: vertebral fractures Do you want consulting provider notified?: Yes 07/20/20 09:51 Consult Physician Routine Consulting Provider: Polo Mitchell Consult Reason/Comments: copd exacerbation Do you want consulting provider notified?: Yes Primary care physician: [facility] Course: Diagnoses on discharge: 1. Severe shortness of breath, there is evidence of pulmonary hypertension, will check echocardiogram, patient is receiving IV Lasix cardiology consultation was requested. 2-D echo completed showing an EF of 55-60% 2. Elevated d-dimer. Chest CTA negative for pulmonary embolism there is evidence of COPD and pulmonary fibrosis/ 3. Multiple vertebral fractures, that have progressed significantly since previous exam in March of this year Will consult Dr. Denton 4. Recent history of bowel obstruction and hernia surgery by Dr Coto 5. Underlying history of atrial fibrillation maintained on Eliquis 6. Underlying history of hypertension 7. Evidence of COPD with exacerbation and wheezing this time patient was started on inhaled bronchodilators and IV steroids. Patient remains on IV steroids, pulmonary services are following 8. Acute kidney injury. Creatinine elevated at 1.64 and bun 45. Continue to monitor closely hopefully transition patient off IV Lasix tomorrow Hospital course: Susan Bhatt, is an 85-year-old female who was recently admitted to [facility] with abdominal pain and evidence of bowel obstruction she underwent hernia surgery with Dr. Coto, she was discharged home in good condition however she started developing worsening shortness of breath and today she decided to call EMS and come back to the emergency room due to severe dyspnea. She was evaluated in the emergency room her vital exam on presentation revealed a temperature of 98 pulse 61 respiration 24 blood pressure 140/98 pulse ox 96% on 2 L nasal cannula her white blood count was 9.6 hemoglobin 11.6 platelet count 273 d-dimer was elevated at 1.25 BUN 28 creatinine 1.14 on exam patient was having scattered crackles in both lung maria with wheezing, her chest x-ray revealed evidence of pulmonary hypertension, otherwise no significant findings, chest CTA was done and revealed no evidence of pulmonary embolism patient had evidence of COPD and pulmonary fibrosis and multiple thoracic compression fractures that have progressed significantly compared to old exam there was new pleural thickening at the right lung base. Patient was admitted to telemetry floor she was started on IV Lasix echocardiogram was ordered cardiology consultation was requested also requesting pulmonary consultation and orthopedic surgery consultation in regard to vertebral fracture. Dr. Coto will be notified to follow-up patient was unable to keep her outpatient follow-up appointment with her. On review of systems patient is alert and oriented 3 she is sitting up at the edge of the bed she is [place] at rest but stated that she has severe shortness of breath with any activity otherwise she denies any complaints there is no fever or chills no headache or dizziness no chest pain no cough no nausea or vomiting no abdominal pain no diarrhea no blood in the stools no burning with urination no frequency or urgency and no hematuria. On 07/20/2020 patient is alert and oriented. Patient reports improvement with shortness of breath. Patient remains on IV Lasix per cardiology. pulmonary services also consulted. Patient remains on IV Solu-Medrol. Wound care services also consulted for lower leg wound. Patient denies chest pain. Patient denies nausea vomiting or diarrhea. Patient denies any urinary burning or frequency. On 07/21/2020 patient was seen and examined on the medical floor she is alert and oriented 3 in no distress, she is reporting improvement in her shortness of breath otherwise she denies any complaints , there is no fever or chills no headache or dizziness no chest pain no cough no nausea or vomiting no abdominal pain no diarrhea no blood in the stools no burning with urination no frequency or urgency and no hematuria On 07/22/2020 patient is alert and oriented 3. Patient reports her shortness of breath is better does but does seem short of breath upon conversation. Patient states she is eager to be discharged home tomorrow. Educated patient that we will have to assess and discuss with consulting providers about possible discharge tomorrow. Patient remains on IV Lasix and IV steroids pulmonary and cardiology services are following. Creatinine increasing to 1.64 and bun 45. We'll continue to monitor closely. Patient denies chest pain. Patient denies nausea vomiting or diarrhea. Patient denies any urinary burning or frequency On 07/23/2020 patient was seen and examined on the medical floor she is alert and oriented 3 in no distress, she reports improvement with her shortness of breath, she was evaluated by cardiology and was cleared for discharge on oral diuretic Bumex, patient is stable she is able to ambulate, she is declining any rehab admission, at this time will arrange for portable oxygen, patient has oxygen at home but no portable oxygen for her travel, she was given a prescription for prednisone 20 mg for 7 days, 10 mg for 7 days then stop, she will be followed in our office in cardiology office and pulmonary office in the next 1-2 weeks. Patient Condition at Discharge: Fair Plan - Discharge Summary Discharge Rx Participant: Yes New Discharge Prescriptions: New Bumetanide [BUMEX] 2 mg PO BID@0900,1600 tab predniSONE 10 mg PO DAILY 14 Days #21 tab Continue Ascorbic Acid [Vitamin C] 500 mg PO DAILY Cholecalciferol (Vitamin D3) [Vitamin D3] 2,000 unit PO DAILY Carboxymethylcellulose Sodium [Refresh Tears] 1 drop BOTH EYES BID PRN PRN Reason: dry eyes Montelukast [Singulair] 10 mg PO HS Latanoprost [Xalatan 0.005%] 1 drop RIGHT EYE HS Ipratropium/Albuterol Sulfate [Combivent Respimat Inhaler] 1 puff INHALATION RT-QID PRN PRN Reason: Shortness Of Breath Apixaban [Eliquis] 2.5 mg PO BID tablet Metoprolol Tartrate [Lopressor] 50 mg PO BID tab Potassium Chloride 10 meq PO DAILY Vitamin E 400 mg PO DAILY Pantoprazole [Protonix] 40 mg PO AC-BRKFST tablet. Gabapentin [Neurontin] 600 mg PO HS Gabapentin 300 mg PO DAILY Ipratropium-Albuterol Nebulize [Duoneb 0.5 mg-3 mg/3 ml Soln] 3 ml INHALATION RT-QID PRN PRN Reason: Shortness Of Breath Multivitamin with Iron [Multivitamins with Iron] 1 tab PO DAILY HYDROcodone/APAP 10-325MG [[place] 10-325] 1 tab PO Q8H PRN PRN Reason: Pain Discontinued Bumetanide [BUMEX] 2 mg PO BID@0900,1600 Discharge Medication List Ascorbic Acid [Vitamin C] 500 mg PO DAILY 04/27/18 [History] Carboxymethylcellulose Sodium [Refresh Tears] 1 drop BOTH EYES BID PRN 04/27/18 [History] Cholecalciferol (Vitamin D3) [Vitamin D3] 2,000 unit PO DAILY 04/27/18 [History] Ipratropium/Albuterol Sulfate [Combivent Respimat Inhaler] 1 puff INHALATION RT- QID PRN 04/27/18 [History] Latanoprost [Xalatan 0.005%] 1 drop RIGHT EYE HS 04/27/18 [History] Montelukast [Singulair] 10 mg PO HS 04/27/18 [History] Apixaban [Eliquis] 2.5 mg PO BID tablet 05/07/18 [Rx] Metoprolol Tartrate [Lopressor] 50 mg PO BID tab 05/31/18 [Rx] Potassium Chloride 10 meq PO DAILY 04/01/20 [History] Vitamin E 400 mg PO DAILY 04/01/20 [History] Pantoprazole [Protonix] 40 mg PO AC-BRKFST tablet. 04/06/20 [Rx] Gabapentin 300 mg PO DAILY 07/03/20 [History] Gabapentin [Neurontin] 600 mg PO HS 07/03/20 [History] Ipratropium-Albuterol Nebulize [Duoneb 0.5 mg-3 mg/3 ml Soln] 3 ml INHALATION RT-QID PRN 07/03/20 [History] HYDROcodone/APAP 10-325MG [[place] 10-325] 1 tab PO Q8H PRN 07/18/20 [History] Multivitamin with Iron [Multivitamins with Iron] 1 tab PO DAILY 07/18/20 [History] Bumetanide [BUMEX] 2 mg PO BID@0900,1600 tab 07/23/20 [Rx] predniSONE 10 mg PO DAILY 14 Days #21 tab 07/23/20 [Rx] Follow up Appointment(s)/Referral(s): Gaston Trevizo MD [STAFF PHYSICIAN] - 2 Weeks Kwadwo Mckeno PAC [PHYSICIAN CIRCULAR SAWYER HELPER] - 3 Weeks (Patient may follow-up with Kwadwo Mckeon PA-C or Dr. Eduardo Denton at [facility] in approximately 3 weeks for further evaluation.) Elham Kumar MD [Primary Care Provider] - 1-2 days
[2020-07-23] MEDS ORDERED: BUMETANIDE 1 MG TAB PO SCH (16:00)
[2020-07-23 16:49] VITALS: PULSE 60
--- NOTE | 2020-07-25 20:26 | CDI ---
Documentation Clarification Form Date: 07/26/2020 From: Brock Lazar Phone: If you have a question about this query, please contact Christie Casillas, Auto Salvage Worker at [phone] between 8am and 5pm. Admit Date: 07/18/2020 Discharge Date: 07/23/2020 Patient Name: Susan Bhatt Visit Number: [id number] ATTENTION: The Clinical Documentation Specialists (CDI) and [facility] Coding Staff appreciate your assistance in clarifying documentation. Please respond to the clarification below the line at the bottom and electronically sign. The CDI & [facility] Coding staff will review the response and follow-up if needed. Please note: Queries are made part of the Legal Health Record. If you have any questions, please contact the author of this message via ITS. Dear Elham Hooker MD., CHF is documented in the through out the medical record except on attending DrEmmanuel notes History/Risk Factors: COPD, Acute respiratory failure, XIANG, SSS Clinical Indicators: cardiomegaly, fluid overload, atrial fibrillation BNP: 6260 Echocardiogram Results: Overall left ventricular systolic function is normal with, an EF between 55- 60 %. Chest X Ray:Correlate to exclude pulmonary venous hypertension and interstitial edema.Prominent interstitium could be due to underlying emphysematous change.Correlate for pulmonary artery hypertension. Treatment: IV LASIX 07/22 Dr. Stephen Cuellar MD notes stated as"Acute diastolic heart failure likely related to A. fib RVR" 07/23 Dr. Luisito Mora MD notes stated as "Acute on chronic diastolic heart failure". But DS stated as "Severe shortness of breath, there is evidence of pulmonary hypertension, will check echocardiogram, patient is receiving IV Lasix cardiology consultation was requested.2-D echo completed showing an EF of 55-60% In your professional opinion, can you please clarify the acuity and type of CHF if known? Systolic Heart Failure: Acute Chronic Acute on Chronic Diastolic Heart Failure: Acute Chronic Acute on Chronic Systolic & Diastolic Heart Failure: Acute Chronic Acute on Chronic Heart Failure Unable to Determine Other, please specify acute on chronic diastolic heart failure MTDD
== END 2020-07-23 18:06 | disposition home health service (06) | DRG 291 ==
LOC: EC 14:58 → 6NMEDSUR 19:28
PROVIDERS: ADMIT Internal Medicine; ATTEND Internal Medicine
DX: I11.0 Hypertensive heart disease with heart failure (principal); J96.21 Acute and chronic respiratory failure with hypoxia; J96.22 Acute and chronic respiratory failure with hypercapnia; J44.1 Chronic obstructive pulmonary disease with (acute) exacerbation; N17.9 Acute kidney failure, unspecified; M48.54XA Collapsed vertebra, not elsewhere classified, thoracic region, initial encounter for fracture; L97.922 Non-pressure chronic ulcer of unspecified part of left lower leg with fat layer exposed; I27.23 Pulmonary hypertension due to lung diseases and hypoxia; I50.33 Acute on chronic diastolic (congestive) heart failure; T38.0X5A Adverse effect of glucocorticoids and synthetic analogues, initial encounter; I49.5 Sick sinus syndrome; I48.0 Paroxysmal atrial fibrillation; G89.29 Other chronic pain; E11.65 Type 2 diabetes mellitus with hyperglycemia; I16.0 Hypertensive urgency; R53.81 Other malaise; Z99.81 Dependence on supplemental oxygen; Z90.710 Acquired absence of both cervix and uterus; Z87.891 Personal history of nicotine dependence; Z82.49 Family history of ischemic heart disease and other diseases of the circulatory system; Z79.899 Other long term (current) drug therapy; Z79.52 Long term (current) use of systemic steroids; Z79.01 Long term (current) use of anticoagulants; Z88.6 Allergy status to analgesic agent; Z88.1 Allergy status to other antibiotic agents; Z91.041 Radiographic dye allergy status; Z88.5 Allergy status to narcotic agent; Z88.0 Allergy status to penicillin; Z88.2 Allergy status to sulfonamides; Z88.8 Allergy status to other drugs, medicaments and biological substances; Z91.09 Other allergy status, other than to drugs and biological substances; Z95.810 Presence of automatic (implantable) cardiac defibrillator; Z90.89 Acquired absence of other organs; Z98.890 Other specified postprocedural states; Z90.49 Acquired absence of other specified parts of digestive tract
CPT/HCPCS: 36415; 71045; 71046; 71275; 80053; 82550; 83605; 83735; 83880; 84484; 85025; 85379; 85610; 85730; 93005; 93306; 94640; 96374; 96375; 96376; 99285

== ENCOUNTER 2020-07-28 03:24 | Inpatient (IN) | payer MEDICARE ==
[2020-07-28] MEDS ORDERED: IPRATROPIUM-ALBUTEROL 3 ML NEB INHALATION STA (03:32)
[2020-07-28] MEDS ORDERED: MORPHINE SULFATE 2 MG/ML SYRINGE IVP STA ×2 (03:33→04:24)
[2020-07-28] MEDS ORDERED: LORazepam 2 MG/ML INJ IV STA ×2 (03:33→04:24)
--- NOTE | 2020-07-28 03:36 | ED ---
SOB HPI - General Stated Complaint: KATELIN Time Seen by Provider: 07/28/20 03:28 Source: RN notes reviewed, old records reviewed Mode of arrival: EMS Limitations: altered mental status, physical limitation - History of Present Illness Initial Comments: This is an 85-year-old female of a poor historian accepted as a DO NOT RESUSCITATE patient with severe us for a stress and shortness of breath just of recent inpatient hospital admission and pending hospice placement. Patient her self signs remaining severely short of breath is really unable to have any complaints MD Complaint: shortness of breath, pain with inspiration -: days(s) Radiation: other Severity: moderate Severity scale (1-10): 7 Consistency: constant Improves With: oxygen, bronchodilators Worsens With: nothing Known History Of: COPD, asthma, congestive heart failure Associated Symptoms: cough, sputum production Treatments Prior to Arrival: none - Related Data Home Medications Medication Instructions Recorded Confirmed Ascorbic Acid [Vitamin C] 500 mg PO DAILY 04/27/18 07/18/20 Carboxymethylcellulose Sodium 1 drop BOTH EYES BID PRN 04/27/18 07/18/20 [Refresh Tears] Cholecalciferol (Vitamin D3) 2,000 unit PO DAILY 04/27/18 07/18/20 [Vitamin D3] Ipratropium/Albuterol Sulfate 1 puff INHALATION RT-QID PRN 04/27/18 07/18/20 [Combivent Respimat Inhaler] Latanoprost [Xalatan 0.005%] 1 drop RIGHT EYE HS 04/27/18 07/18/20 Montelukast [Singulair] 10 mg PO HS 04/27/18 07/18/20 Potassium Chloride 10 meq PO DAILY 04/01/20 07/18/20 Vitamin E 400 mg PO DAILY 04/01/20 07/18/20 Gabapentin 300 mg PO DAILY 07/03/20 07/18/20 Gabapentin [Neurontin] 600 mg PO HS 07/03/20 07/18/20 Ipratropium-Albuterol Nebulize 3 ml INHALATION RT-QID PRN 07/03/20 07/18/20 [Duoneb 0.5 mg-3 mg/3 ml Soln] HYDROcodone/APAP 10-325MG [[place] 1 tab PO Q8H PRN 07/18/20 07/18/20 10-325] Multivitamin with Iron 1 tab PO DAILY 07/18/20 07/18/20 [Multivitamins with Iron] Previous Rx's Medication Instructions Recorded Apixaban [Eliquis] 2.5 mg PO BID tablet 05/07/18 Metoprolol Tartrate [Lopressor] 50 mg PO BID tab 05/31/18 Pantoprazole [Protonix] 40 mg PO AC-BRKFST tablet. 04/06/20 Bumetanide [BUMEX] 2 mg PO BID@0900,1600 tab 07/23/20 predniSONE 10 mg PO DAILY 14 Days #21 tab 07/23/20 Allergies Allergy/AdvReac Type Severity Reaction Status Date / Time amlodipine Allergy Unknown Verified 07/28/20 03:40 benazepril [From Lotrel] Allergy Unknown Verified 07/28/20 03:40 cephalexin [From Keflex] Allergy Anaphylaxis Verified 07/28/20 03:40 Cephalosporins Allergy Anaphylaxis Verified 07/28/20 03:40 codeine Allergy Unknown Verified 07/28/20 03:40 Iodinated Contrast Media Allergy Anaphylaxis Verified 07/28/20 03:40 [Iodinated Contrast- Oral and IV Dye] nebivolol [From Bystolic] Allergy Unknown Verified 07/28/20 03:40 olmesartan [From Benicar] Allergy Unknown Verified 07/28/20 03:40 Penicillins Allergy Anaphylaxis Verified 07/28/20 03:40 Sulfa (Sulfonamide Allergy Anaphylaxis Verified 07/28/20 03:40 Antibiotics) apixaban [From Eliquis] AdvReac BONE PAIN Verified 07/28/20 03:40 clonidine AdvReac BLURRED Verified 07/28/20 03:40 VISION, DIZZY, SCRATCHY THROAT furosemide [From Lasix] AdvReac Nausea & Verified 07/28/20 03:40 Vomiting & Diarrhea hydralazine AdvReac CHILLS, Verified 07/28/20 03:40 SHAKING, LIGHT HEADED, FACE FLUSHED isosorbide [From Imdur] AdvReac Rapid Verified 07/28/20 03:40 Heart Rate labetalol AdvReac Dyspnea Verified 07/28/20 03:40 lisinopril AdvReac Nausea & Verified 07/28/20 03:40 Vomiting & Diarrhea/COUGH PAPER MEDICAL TAPE Allergy Unknown Uncoded 07/28/20 03:40 Review of Systems ROS Statement: Those systems with pertinent positive or pertinent negative responses have been documented in the HPI. ROS Other: All systems not noted in ROS Statement are negative. Past Medical History Past Medical History: Atrial Fibrillation, Asthma, Heart Failure, COPD, Hypertension History of Any Multi-Drug Resistant Organisms: None Reported Past Surgical History: AICD, Hysterectomy, Pacemaker, Tonsillectomy Additional Past Surgical History / Comment(s): urethral suspension, ectopic, thyroid biopsy, cataract, glaucoma sx AICD/Pacer implant done in Apr, cardiac ablation 05/27/2018/07/09/20 Robotic assisted laproscopic repair of strangulated right lower quadrant ventral hernia w/small bowel resection and primary anastamosis Past Anesthesia/Blood Transfusion Reactions: No Reported Reaction Type of Cardiac Device: Permanent Pacemaker, AICD Device Placement Date:: Apr 2018 Past Psychological History: No Psychological Hx Reported Additional Psychological History / Comment(s): and was living independently. Lives at home by herself - daughter comes in 3 days a week to help. No international travel. 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 No alcohol use. No animals at this time Smoking Status: Former smoker Past Alcohol Use History: None Reported Past Drug Use History: None Reported - Past Family History Brother(s) Family Medical History: Congestive Heart Failure (CHF) General Exam General appearance: alert, anxious, in distress Head exam: Present: atraumatic, normocephalic, normal inspection Eye exam: Present: normal appearance, PERRL, EOMI. Absent: scleral icterus, conjunctival injection, periorbital swelling ENT exam: Present: normal exam, mucous membranes moist Neck exam: Present: normal inspection. Absent: tenderness, meningismus, lymphadenopathy Respiratory exam: Present: respiratory distress, wheezes, rhonchi, accessory muscle use, decreased breath sounds, prolonged expiratory. Absent: rales, stridor Cardiovascular Exam: Present: regular rate, normal rhythm, normal heart sounds. Absent: systolic murmur, diastolic murmur, rubs, gallop, clicks GI/Abdominal exam: Present: soft, normal bowel sounds. Absent: distended, tenderness, guarding, rebound, rigid Extremities exam: Present: normal inspection, full ROM, normal capillary refill. Absent: tenderness, pedal edema, joint swelling, calf tenderness Back exam: Present: normal inspection Neurological exam: Present: alert, oriented X3, CN II-XII intact Psychiatric exam: Present: normal affect, normal mood Skin exam: Present: warm, dry, intact, normal color. Absent: rash Course Vital Signs 07/28/20 07/28/20 07/28/20 03:29 03:49 04:03 Temperature 97.4 F L Pulse Rate 60 60 66 Respiratory 24 Rate O2 Sat by Pulse 97 Oximetry - Reevaluation(s) Reevaluation #1: 07/28/20 03:35 Medical record is reviewed Reevaluation #2: 07/28/20 04:29 Patient needing persistent sedation for agitation Medical Decision Making - Medical Decision Making 85 female admitted under hospice orders comfort care is a DO NOT RESUSCITATE. - Lab Data Result diagrams: 07/28/20 04:12 07/28/20 04:12 Lab Results 07/28/20 07/28/20 Range/Units 04:12 04:12 WBC 13.4 H (3.8-10.6) k/uL RBC 3.70 L (3.80-5.40) m/uL Hgb 11.5 (11.4-16.0) gm/dL Hct 35.3 (34.0-46.0) % MCV 95.3 (80.0-100.0) fL MCH 31.0 (25.0-35.0) pg MCHC 32.6 (31.0-37.0) g/dL RDW 15.0 (11.5-15.5) % Plt Count 208 (150-450) k/uL MPV 8.7 Neutrophils % 89 % Lymphocytes % 5 % Monocytes % 5 % Eosinophils % 1 % Basophils % 1 % Neutrophils # 11.9 H (1.3-7.7) k/uL Lymphocytes # 0.6 L (1.0-4.8) k/uL Monocytes # 0.6 (0-1.0) k/uL Eosinophils # 0.1 (0-0.7) k/uL Basophils # 0.1 (0-0.2) k/uL Hypochromasia Slight Sodium 144 (137-145) mmol/L Potassium 3.1 L (3.5-5.1) mmol/L Chloride 103 (98-107) mmol/L Carbon Dioxide 36 H (22-30) mmol/L Anion Gap 5 mmol/L BUN 30 H (7-17) mg/dL Creatinine 0.90 (0.52-1.04) mg/dL Est GFR (CKD-EPI)AfAm 68 (>60 ml/min/1.73 sqM) Est GFR (CKD-EPI)NonAf 59 (>60 ml/min/1.73 sqM) Glucose 142 H (74-99) mg/dL Calcium 8.8 (8.4-10.2) mg/dL Magnesium 2.0 (1.6-2.3) mg/dL Total Bilirubin 3.1 H (0.2-1.3) mg/dL AST 50 H (14-36) U/L ALT 76 H (4-34) U/L Alkaline Phosphatase 64 (38-126) U/L Total Protein 5.5 L (6.3-8.2) g/dL Albumin 3.1 L (3.5-5.0) g/dL - EKG Data -: EKG Interpreted by Me (eKG is paced 60, QRS 150 QTC 466) - Radiology Data Radiology results: report reviewed (Chest x-ray with mild pulmonary edema), image reviewed Disposition Clinical Impression: SOB (shortness of breath), DNR (do not resuscitate) Disposition: ADMITTED IP TO THIS HOSP Condition: Critical Is patient prescribed a controlled substance at d/c from ED?: No Referrals: Elham Kumar MD [Primary Care Provider] - 1-2 days
[2020-07-28 04:18] LABS: Basophils # (A) 0.1 k/uL (0-0.2); Basophils % (A) 1 %; Eosinophils # (A) 0.1 k/uL (0-0.7); Eosinophils % (A) 1 %; HCT 35.3 % (34.0-46.0); HGB 11.5 gm/dL (11.4-16.0); Hypochromasia Slight; Lymphocytes # (A) 0.6 k/uL (1.0-4.8); Lymphocytes % (A) 5 %; MCHC 32.6 g/dL (31.0-37.0); MCV 95.3 fL (80.0-100.0); Mean Platelet Volume 8.7; Monocytes # (A) 0.6 k/uL (0-1.0); Monocytes % (A) 5 %; Neutrophils # (A) 11.9 k/uL (1.3-7.7); Neutrophils % (A) 89 %; Platelet Count 208 k/uL (150-450); WBC 13.4 k/uL (3.8-10.6)
--- NOTE | 2020-07-28 04:19 | XR ---
EXAM: XR Chest, 1 View CLINICAL HISTORY: Shortness of breath TECHNIQUE: Frontal view of the chest. COMPARISON: Chest x-ray dated 07/20/2020 FINDINGS: Lungs: Question subtle diffuse airspace opacities which may represent early pulmonary vascular congestion versus an infectious process. Pleural space: Unremarkable. Heart: Unremarkable. Mediastinum: Unremarkable. Bones/joints: Degenerative changes of both shoulders. Tubes, lines and devices: Heart is enlarged with dual-chamber cardiac pacemaker. IMPRESSION: Question subtle diffuse airspace opacities which may represent early pulmonary vascular congestion versus an infectious process.
[2020-07-28 04:27] LABS: Albumin 3.1 g/dL (3.5-5.0); Calcium 8.8 mg/dL (8.4-10.2); Potassium 3.1 mmol/L (3.5-5.1); Total Bilirubin 3.1 mg/dL (0.2-1.3); Total Protein 5.5 g/dL (6.3-8.2)
[2020-07-28] MEDS: ALBUTEROL NEBULIZED 2.5 MG/3 ML INHALATION SCH ×3 (07:58→16:10)
[2020-07-28] MEDS: LORazepam 2 MG/ML INJ IV PRN ×3 (10:07→17:56)
[2020-07-28] MEDS: MORPHINE SULFATE 2 MG/ML SYRINGE IVP PRN ×2 (12:46→16:17)
[2020-07-28] MEDS ORDERED: ARTIFICIAL TEARS-HYPROMELLOSE DROPS 15 ML BTL BOTH EYES PRN (13:24)
[2020-07-28] MEDS ORDERED: Potassium Replacement Protocol 1 EACH MISC MISCELLANE PRN (13:24)
[2020-07-28] MEDS ORDERED: IPRATROPIUM-ALBUTEROL 3 ML NEB INHALATION PRN ×2 (13:24)
[2020-07-28] MEDS ORDERED: HYDROcodone/APAP 10-325MG 1 EACH TAB PO PRN (13:24)
[2020-07-28] MEDS ORDERED: GABAPENTIN 300 MG CAP PO SCH ×2 (13:30→21:00)
[2020-07-28] MEDS ORDERED: BUMETANIDE 0.25 MG/ML 4 ML VIAL IVP STA (13:49)
[2020-07-28] MEDS ORDERED: AZITHROMYCIN 500 MG in SODIUM CHLORIDE 0.9% 250 ML IVPB SCH (14:00)
--- NOTE | 2020-07-28 14:11 | P.HPIM ---
History of Present Illness H&P Date: 07/28/20 Chief Complaint: Worsening shortness of breath Susan Bhatt, is an 85-year-old female who presented to [facility] emergency room on 07/28/2020 with a chief complaint of worsening shortness of breath, patient was evaluated in emergency room, vital examination on presentation revealed a temperature of 97.4 pulse 60 respiration 24 pulse ox 86% on room air, patient was complaining of severe shortness of breath was and able to complete full sentences and was using accessory muscles for breathing her white blood count was 13.4 hemoglobin 11.5 platelet count 208 BUN 30 creatinine 0.9 total bilirubin 3.1 AST 50 a LT 76 EKG revealed ventricular paced rhythm, chest x-ray revealed diffuse airspace opacity which may represent vascular congestion with versus an infectious process, Covid 19 testing was ordered and results are still pending patient was admitted to medical floor, cardiology consultation and pulmonary consultation were requested. Patient had a recent admission to [facility] with similar symptom of shortness of breath at that time pulmonary embolism was ruled out echocardiogram revealed normal ejection fraction and evidence of mild pulmonary hypertension, she was evaluated by cardiology and pulmonary she was given diuretics, IV steroids, and inhaled bronchodilators she improved and she was discharged home on 07/23/2020, she was doing well until the day prior to readmission. Prior to that patient was admitted to [facility] on 07/04/2020 at that time she had evidence of abdominal wall hernia and unde rwent surgery with Dr. Coto. On review of systems patient is alert responsive in mild respiratory distress there is no fever or chills no headache or dizziness no chest pain she has occasional cough no palpitation no nausea or vomiting no abdominal pain no diarrhea no blood in the stools no burning with urination no frequency or urgency and no hematuria. There is no weakness or numbness in any of the extremities patient is complaining of back pain and generalized weakness. She denies any change in vision or in speech gait was not tested due to safety concerns. Past Medical History Past Medical History: Atrial Fibrillation, Asthma, Heart Failure, COPD, Hypertension History of Any Multi-Drug Resistant Organisms: None Reported Past Surgical History: AICD, Hernia Repair, Hysterectomy, Pacemaker, Tonsillectomy Additional Past Surgical History / Comment(s): urethral suspension, ectopic, thyroid biopsy, cataract, glaucoma sx AICD/Pacer implant done in Apr, cardiac ablation 05/27/2018/07/09/20 Robotic assisted laproscopic repair of strangulated right lower quadrant ventral hernia w/small bowel resection and primary anastamosis Past Anesthesia/Blood Transfusion Reactions: No Reported Reaction Type of Cardiac Device: Permanent Pacemaker, AICD Device Placement Date:: Apr 2018 Past Psychological History: No Psychological Hx Reported Additional Psychological History / Comment(s): and was living independently. Lives at home by herself - Daughter and family have been with patient around the clock for last 2 weeks. No international travel. Retired from [employer]. ex-smoker. No alcohol use. No animals at this time Smoking Status: Former smoker Past Alcohol Use History: None Reported Past Drug Use History: None Reported - Past Family History Brother(s) Family Medical History: Congestive Heart Failure (CHF) Medications and Allergies Home Medications Medication Instructions Recorded Confirmed Type Ascorbic Acid [Vitamin C] 500 mg PO DAILY 04/27/18 07/28/20 History Carboxymethylcellulose Sodium 1 drop BOTH EYES BID PRN 04/27/18 07/28/20 History [Refresh Tears] Cholecalciferol (Vitamin D3) 2,000 unit PO DAILY 04/27/18 07/28/20 History [Vitamin D3] Ipratropium/Albuterol Sulfate 1 puff INHALATION RT-QID PRN 04/27/18 07/28/20 History [Combivent Respimat Inhaler] Latanoprost [Xalatan 0.005%] 1 drop RIGHT EYE HS 04/27/18 07/28/20 History Montelukast [Singulair] 10 mg PO HS 04/27/18 07/28/20 History Apixaban [Eliquis] 2.5 mg PO BID tablet 05/07/18 07/28/20 Rx Metoprolol Tartrate [Lopressor] 50 mg PO BID tab 05/31/18 07/28/20 Rx Potassium Chloride 10 meq PO DAILY 04/01/20 07/28/20 History Vitamin E 400 mg PO DAILY 04/01/20 07/28/20 History Pantoprazole [Protonix] 40 mg PO AC-BRKFST tablet. 04/06/20 07/28/20 Rx Gabapentin 300 mg PO DAILY 07/03/20 07/28/20 History Gabapentin [Neurontin] 600 mg PO HS 07/03/20 07/28/20 History Ipratropium-Albuterol Nebulize 3 ml INHALATION RT-QID PRN 07/03/20 07/28/20 History [Duoneb 0.5 mg-3 mg/3 ml Soln] HYDROcodone/APAP 10-325MG [[place] 1 tab PO Q8H PRN 07/18/20 07/28/20 History 10-325] Multivitamin with Iron 1 tab PO DAILY 07/18/20 07/28/20 History [Multivitamins with Iron] Bumetanide [BUMEX] 2 mg PO BID@0900,1600 tab 07/23/20 07/28/20 Rx predniSONE 10 mg PO DAILY 14 Days #21 tab 07/23/20 07/28/20 Rx Allergies Allergy/AdvReac Type Severity Reaction Status Date / Time amlodipine Allergy Unknown Verified 07/28/20 09:27 benazepril [From Lotrel] Allergy Unknown Verified 07/28/20 09:27 cephalexin [From Keflex] Allergy Anaphylaxis Verified 07/28/20 09:27 Cephalosporins Allergy Anaphylaxis Verified 07/28/20 09:27 codeine Allergy Unknown Verified 07/28/20 09:27 Iodinated Contrast Media Allergy Anaphylaxis Verified 07/28/20 09:27 [Iodinated Contrast- Oral and IV Dye] nebivolol [From Bystolic] Allergy Unknown Verified 07/28/20 09:27 olmesartan [From Benicar] Allergy Unknown Verified 07/28/20 09:27 Penicillins Allergy Anaphylaxis Verified 07/28/20 09:27 Sulfa (Sulfonamide Allergy Anaphylaxis Verified 07/28/20 09:27 Antibiotics) apixaban [From Eliquis] AdvReac BONE PAIN Verified 07/28/20 09:27 clonidine AdvReac BLURRED Verified 07/28/20 09:27 VISION, DIZZY, SCRATCHY THROAT furosemide [From Lasix] AdvReac Nausea & Verified 07/28/20 09:27 Vomiting & Diarrhea hydralazine AdvReac CHILLS, Verified 07/28/20 09:27 SHAKING, LIGHT HEADED, FACE FLUSHED isosorbide [From Imdur] AdvReac Rapid Verified 07/28/20 09:27 Heart Rate labetalol AdvReac Dyspnea Verified 07/28/20 09:27 lisinopril AdvReac Nausea & Verified 07/28/20 09:27 Vomiting & Diarrhea/COUGH PAPER MEDICAL TAPE Allergy Unknown Uncoded 07/28/20 03:40 Physical Exam Vitals: Vital Signs Temp Pulse Resp Pulse Ox 07/28/20 08:06 66 07/28/20 05:02 97.6 F 58 L 20 94 L 07/28/20 04:03 66 07/28/20 03:49 60 07/28/20 03:44 86 L 07/28/20 03:29 97.4 F L 60 24 97 Intake and Output 07/27/20 07/28/20 07/28/20 22:59 06:59 14:59 Other: Voiding Method Diaper Weight 90.718 kg 90.718 kg In general patient is alert and oriented 3 in no distress HEENT head normocephalic and atraumatic Neck is supple no JVD no goiter no lymphadenopathy Chest exam reveals a few scattered rhonchi no wheezing Cardiac exam reveals regular heart sounds no gallops no murmurs Abdomen is soft nontender no organomegaly with normal bowel sounds Extremity exam reveals minimal edema no cyanosis or clubbing Neurological examination reveals no gross focal deficit Results CBC & Chem 7: 07/28/20 04:12 07/28/20 04:12 Labs: Abnormal Lab Results - Last 24 Hours (Table) 07/28/20 07/28/20 Range/Units 04:12 04:12 WBC 13.4 H (3.8-10.6) k/uL RBC 3.70 L (3.80-5.40) m/uL Neutrophils # 11.9 H (1.3-7.7) k/uL Lymphocytes # 0.6 L (1.0-4.8) k/uL Potassium 3.1 L (3.5-5.1) mmol/L Carbon Dioxide 36 H (22-30) mmol/L BUN 30 H (7-17) mg/dL Glucose 142 H (74-99) mg/dL Total Bilirubin 3.1 H (0.2-1.3) mg/dL AST 50 H (14-36) U/L ALT 76 H (4-34) U/L Total Protein 5.5 L (6.3-8.2) g/dL Albumin 3.1 L (3.5-5.0) g/dL Assessment and Plan Plan: 1. Worsening shortness of breath, multifactorial, including acute diastolic congestive heart failure exacerbation, as evidenced by abnormal chest x-ray and elevated BNP at 26,000, possible COPD exacerbation, cannot rule out infectious process in the lungs, at this time patient will be given 1 dose of IV Bumex, will monitor response very closely will recheck labs and chest x-ray, will also start IV antibiotic Zithromax, start IV steroids, and give inhaled bronchodilators, and tilt clinical picture is more clear, consultation for cardiology and pulmonary were initiated, labs chest x-ray and EKG were reviewed, echocardiogram done on 07/19/2020 was reviewed. 2. Back pain patient has subacute vertebral fractures, she was started on IV morphine in the emergency room 3. Recent history of bowel obstruction with surgery surgery for abdominal wall hernia, no abdominal pain at this time, will monitor diet and bowel movement closely and assess for any symptoms of abdominal pain nausea or vomiting 4. Underlying history of atrial fibrillation maintained on 5. Underlying history of hypertension 6. Underlying history of COPD followed by Dr. MARY 40 years consultation was requested At this time medication and labs were reviewed Chest x-ray and recent echocardiogram reviewed Home medications reordered started on IV antibiotic, IV steroids, and inhaled bronchodilators Given 1 dose of IV Bumex and home dose of oral Bumex restarted Will follow closely awaiting input from pulmonary and cardiology Prognosis is guarded to due to advanced age and multiple medical problems
[2020-07-28] MEDS ORDERED: methylPREDNISolone SOD SUCCI 40 MG/ML 1 ML VIAL IV SCH (14:45)
[2020-07-28 14:51] LABS: Potassium 3.6 mmol/L (3.5-5.1)
[2020-07-28 14:52] LABS: ALT 71 U/L (4-34); AST 42 U/L (14-36); African American GFR (CKD) 79 (>60 ml/min/1.73 sqM); Albumin 3.2 g/dL (3.5-5.0); Albumin/Globulin Ratio 1.3; Alkaline Phosphatase 55 U/L (38-126); Anion Gap 2 mmol/L; Blood Urea Nitrogen 28 mg/dL (7-17); Calcium 8.9 mg/dL (8.4-10.2); Carbon Dioxide 36 mmol/L (22-30); Chloride 106 mmol/L (98-107); Globulin 2.4 g/dL; Glucose 125 mg/dL (74-99); Non-African American GFR(CKD) 68 (>60 ml/min/1.73 sqM); Sodium 144 mmol/L (137-145); Total Bilirubin 2.6 mg/dL (0.2-1.3); Total Protein 5.6 g/dL (6.3-8.2)
[2020-07-28] MEDS ORDERED: BUMETANIDE 1 MG TAB PO SCH (16:00)
[2020-07-28] MEDS ORDERED: MONTELUKAST 10 MG TAB PO SCH (21:00)
[2020-07-28] MEDS ORDERED: METOPROLOL TARTRATE 50 MG TAB PO SCH (21:00)
[2020-07-28] MEDS ORDERED: LATANOPROST 0.005% OPHTH DROPS 2.5 ML BTL RIGHT EYE SCH (21:00)
[2020-07-28] MEDS ORDERED: APIXABAN 2.5 MG TABLET PO SCH (21:00)
[2020-07-29] MEDS: MORPHINE SULFATE 4 MG/ML SYRINGE IVP PRN ×2 (00:26→08:01)
[2020-07-29] MEDS: LORazepam 2 MG/ML INJ IV PRN ×2 (01:46→10:57)
[2020-07-29 07:30] LABS: Basophils % (A) 0 %; Eosinophils # (A) 0.1 k/uL (0-0.7); Eosinophils % (A) 0 %; HGB 11.8 gm/dL (11.4-16.0); Hypochromasia Moderate; Lymphocytes # (A) 1.3 k/uL (1.0-4.8); Lymphocytes % (A) 8 %; MCH 30.3 pg (25.0-35.0); MCHC 31.2 g/dL (31.0-37.0); MCV 97.4 fL (80.0-100.0); Mean Platelet Volume 8.7; Monocytes # (A) 0.8 k/uL (0-1.0); Monocytes % (A) 5 %; Neutrophils # (A) 13.6 k/uL (1.3-7.7); Neutrophils % (A) 86 %; Platelet Count 187 k/uL (150-450); RDW 15.1 % (11.5-15.5); WBC 15.8 k/uL (3.8-10.6)
[2020-07-29] MEDS ORDERED: PANTOPRAZOLE 40 MG TABLET PO SCH (07:30)
--- NOTE | 2020-07-29 07:34 | XR ---
EXAMINATION TYPE: XR chest 1V portable DATE OF EXAM: 07/29/2020 COMPARISON: 07/28/2020 HISTORY: Shortness of breath TECHNIQUE: Single frontal view of the chest is obtained. FINDINGS: Arthropathy of the shoulders with cardiac device stable in appearance. Coarsened interstit ium with cardiomegaly. No definite pneumothorax. Tiny areas of pleural effusion or pleural thickening stable. IMPRESSION: 1. COPD with interstitial process correlate for chronic interstitial lung disease. Interstitial pneum onitis or mild venous congestion also in the differential diagnosis.
[2020-07-29] MEDS ORDERED: MULTIVITAMINS, THERA 1 EACH TAB PO SCH (09:00)
[2020-07-29] MEDS ORDERED: predniSONE 10 MG TAB PO SCH (09:00)
[2020-07-29] MEDS ORDERED: POTASSIUM CHLORIDE ER 10 MEQ TAB.ER.PRT PO SCH (09:00)
[2020-07-29] MEDS ORDERED: CHOLECALCIFEROL 1,000 UNIT TAB PO SCH (09:00)
[2020-07-29] MEDS ORDERED: ASCORBIC ACID 500 MG TAB PO SCH (09:00)
[2020-07-29] MEDS ORDERED: VITAMIN E (DL,TOCOPHERYL ACET) 400 UNIT CAP PO SCH (09:00)
--- NOTE | 2020-07-29 10:25 | P.PN ---
Subjective Progress Note Date: 07/29/20 Susan Bhatt, is an 85-year-old female who presented to [facility] emergency room on 07/28/2020 with a chief complaint of worsening shortness of breath, patient was evaluated in emergency room, vital examination on presentation revealed a temperature of 97.4 pulse 60 respiration 24 pulse ox 86% on room air, patient was complaining of severe shortness of breath was and able to complete full sentences and was using accessory muscles for breathing her white blood count was 13.4 hemoglobin 11.5 platelet count 208 BUN 30 creatinine 0.9 total bilirubin 3.1 AST 50 a LT 76 EKG revealed ventricular paced rhythm, chest x-ray revealed diffuse airspace opacity which may represent vascular congestion with versus an infectious process, Covid 19 testing was ordered and results are still pending patient was admitted to medical floor, cardiology consultation and pulmonary consultation were requested. Patient had a recent admission to [facility] with similar symptom of shortness of breath at that time pulmonary embolism was ruled out echocardiogram revealed normal ejection fraction and evidence of mild pulmonary hypertension, she was evaluated by cardiology and pulmonary she was given diuretics, IV steroids, and inhaled bronchodilators she improved and she was discharged home on 07/23/2020, she was doing well until the day prior to readmission. Prior to that patient was admitted to [facility] on 07/04/2020 at that time she had evidence of abdominal wall hernia and underwent surgery with Dr. Coto. On review of systems patient is alert responsive in mild respiratory distress there is no fever or chills no headache or dizziness no chest pain she has occasional cough no palpitation no nausea or vomiting no abdominal pain no diarrhea no blood in the stools no burning with urination no frequency or urgency and no hematuria. There is no weakness or numbness in any of the extremities patient is complaining of back pain and generalized weakness. She denies any change in vision or in speech gait was not tested due to safety concerns. On 07/29/2020 per family request comfort care measures have been initiated. Hospice consult has been placed awaiting hospice evaluation. Per nursing staff patient has had uncontrolled pain with the current morphine dose will order morphine drip at this time nursing staff to get a hold of [facility] hospice to come admit patient to hospice care. Objective - Vital Signs Vital signs: Vital Signs Temp 98.3 F 07/28/20 21:00 Pulse 64 07/29/20 08:00 Resp 28 H 07/29/20 08:00 BP 130/73 07/28/20 21:00 Pulse Ox 94 L 07/28/20 21:00 Intake & Output 07/28/20 07/29/20 07/29/20 18:59 06:59 18:59 Intake Total 0 Balance 0 Weight 90.718 kg Intake: Oral 0 Other: Voiding Method Diaper Diaper Diaper Incontinent Incontinent # Voids 2 2 - Exam HEENT head normocephalic and atraumatic Neck is supple no JVD no goiter no lymphadenopathy Chest exam reveals a few scattered rhonchi no wheezing Cardiac exam reveals regular heart sounds no gallops no murmurs Abdomen is soft nontender no organomegaly with normal bowel sounds Extremity exam reveals minimal edema no cyanosis or clubbing - Labs CBC & Chem 7: 07/29/20 06:25 07/28/20 14:27 Labs: Abnormal Lab Results - Last 24 Hours (Table) 07/28/20 07/29/20 Range/Units 14:27 06:25 WBC 15.8 H (3.8-10.6) k/uL Neutrophils # 13.6 H (1.3-7.7) k/uL Carbon Dioxide 36 H (22-30) mmol/L BUN 28 H (7-17) mg/dL Glucose 125 H (74-99) mg/dL Total Bilirubin 2.6 H (0.2-1.3) mg/dL AST 42 H (14-36) U/L ALT 71 H (4-34) U/L Total Protein 5.6 L (6.3-8.2) g/dL Albumin 3.2 L (3.5-5.0) g/dL Assessment and Plan Plan: 1. Worsening shortness of breath, multifactorial, including acute diastolic congestive heart failure exacerbation, as evidenced by abnormal chest x-ray and elevated BNP at 26,000, possible COPD exacerbation, cannot rule out infectious process in the lungs, at this time patient will be given 1 dose of IV Bumex, will monitor response very closely will recheck labs and chest x-ray, will also start IV antibiotic Zithromax, start IV steroids, and give inhaled bronchodilators, and tilt clinical picture is more clear, consultation for cardiology and pulmonary were initiated, labs chest x-ray and EKG were reviewed, echocardiogram done on 07/19/2020 was reviewed. 2. Back pain patient has subacute vertebral fractures, she was started on IV morphine in the emergency room 3. Recent history of bowel obstruction with surgery surgery for abdominal wall hernia, no abdominal pain at this time, will monitor diet and bowel movement closely and assess for any symptoms of abdominal pain nausea or vomiting 4. Underlying history of atrial fibrillation maintained on 5. Underlying history of hypertension 6. Underlying history of COPD Per patient's family request made for comfort care only Hospice consult placed Due to uncontrolled pain patient started on morphine drip
[2020-07-29] MEDS ORDERED: MORPHINE SULFATE (100 MG/2 ML) 100 MG in SODIUM CHLORIDE 0.9% 100 ML IV SCH (10:30)
[2020-07-29 12:38] LABS: African American GFR (CKD) 68.1 (60.0-200.0); Albumin 3.9 g/dL (3.80-4.90); Albumin/Globulin Ratio 1.86 (1.60-3.17); Anion Gap 14.7 mmol/L (4.00-12.00); BUN/Creat Ratio 28.89 Ratio (12.00-20.00); Calcium 9.8 mg/dL (8.7-10.3); Carbon Dioxide 34.3 mmol/L (21.6-31.8); Globulin 2.1 g/dL (1.6-3.3); Non-African American GFR(CKD) 58.7 (60.0-200.0); Potassium 3.8 mmol/L (3.5-5.5); Total Bilirubin 2.7 mg/dL (0.3-1.2)
[2020-07-29 18:07] VITALS: BP 192/90; TEMP 98.2
--- NOTE | 2020-07-29 20:33 | P.CNPUL ---
History of Present Illness Consult date: 07/29/20 Reason for consult: dyspnea, cough, COPD, hypoxemia Chief complaint: Shortness of breath History of present illness: This is a 85-year-old female who came into the hospital with one-day history of progressive increased shortness of breath, patient denies any cough or fever however white cell count was elevated, chest x-ray consistent with CHF-like finding with prominent distention of interstitial edema, BNP was over 26,000, patient currently was on bronchodilator IV steroids breathing treatments, other associated etiology like pneumonia or covid 19 cannot be excluded, patient is in drop blood isolation, broad-spectrum antibiotics with his steroids, covid 19 testing is pending, sodium is up to 154 for now, family is requesting for hospice due to frequent admission, Review of Systems All systems: negative Past Medical History Past Medical History: Atrial Fibrillation, Asthma, Heart Failure, COPD, Hypertension History of Any Multi-Drug Resistant Organisms: None Reported Past Surgical History: AICD, Hernia Repair, Hysterectomy, Pacemaker, Tonsillectomy Additional Past Surgical History / Comment(s): urethral suspension, ectopic, thyroid biopsy, cataract, glaucoma sx AICD/Pacer implant done in Apr, cardiac ablation 05/27/2018/07/09/20 Robotic assisted laproscopic repair of strangulated right lower quadrant ventral hernia w/small bowel resection and primary anastamosis Past Anesthesia/Blood Transfusion Reactions: No Reported Reaction Type of Cardiac Device: Permanent Pacemaker, AICD Device Placement Date:: Apr 2018 Past Psychological History: No Psychological Hx Reported Additional Psychological History / Comment(s): and was living independently. Lives at home by herself - Daughter and family have been with patient around the clock for last 2 weeks. No international travel. 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 No alcohol use. No animals at this time Smoking Status: Former smoker Past Alcohol Use History: None Reported Past Drug Use History: None Reported - Past Family History Brother(s) Family Medical History: Congestive Heart Failure (CHF) Medications and Allergies Home Medications Medication Instructions Recorded Confirmed Type Ascorbic Acid [Vitamin C] 500 mg PO DAILY 04/27/18 07/28/20 History Carboxymethylcellulose Sodium 1 drop BOTH EYES BID PRN 04/27/18 07/28/20 History [Refresh Tears] Cholecalciferol (Vitamin D3) 2,000 unit PO DAILY 04/27/18 07/28/20 History [Vitamin D3] Ipratropium/Albuterol Sulfate 1 puff INHALATION RT-QID PRN 04/27/18 07/28/20 History [Combivent Respimat Inhaler] Latanoprost [Xalatan 0.005%] 1 drop RIGHT EYE HS 04/27/18 07/28/20 History Montelukast [Singulair] 10 mg PO HS 04/27/18 07/28/20 History Apixaban [Eliquis] 2.5 mg PO BID tablet 05/07/18 07/28/20 Rx Metoprolol Tartrate [Lopressor] 50 mg PO BID tab 05/31/18 07/28/20 Rx Potassium Chloride 10 meq PO DAILY 04/01/20 07/28/20 History Vitamin E 400 mg PO DAILY 04/01/20 07/28/20 History Pantoprazole [Protonix] 40 mg PO AC-BRKFST tablet. 04/06/20 07/28/20 Rx Gabapentin 300 mg PO DAILY 07/03/20 07/28/20 History Gabapentin [Neurontin] 600 mg PO HS 07/03/20 07/28/20 History Ipratropium-Albuterol Nebulize 3 ml INHALATION RT-QID PRN 07/03/20 07/28/20 History [Duoneb 0.5 mg-3 mg/3 ml Soln] HYDROcodone/APAP 10-325MG [[place] 1 tab PO Q8H PRN 07/18/20 07/28/20 History 10-325] Multivitamin with Iron 1 tab PO DAILY 07/18/20 07/28/20 History [Multivitamins with Iron] Bumetanide [BUMEX] 2 mg PO BID@0900,1600 tab 07/23/20 07/28/20 Rx predniSONE 10 mg PO DAILY 14 Days #21 tab 07/23/20 07/28/20 Rx Allergies Allergy/AdvReac Type Severity Reaction Status Date / Time amlodipine Allergy Unknown Verified 07/28/20 09:27 benazepril [From Lotrel] Allergy Unknown Verified 07/28/20 09:27 cephalexin [From Keflex] Allergy Anaphylaxis Verified 07/28/20 09:27 Cephalosporins Allergy Anaphylaxis Verified 07/28/20 09:27 codeine Allergy Unknown Verified 07/28/20 09:27 Iodinated Contrast Media Allergy Anaphylaxis Verified 07/28/20 09:27 [Iodinated Contrast- Oral and IV Dye] nebivolol [From Bystolic] Allergy Unknown Verified 07/28/20 09:27 olmesartan [From Benicar] Allergy Unknown Verified 07/28/20 09:27 Penicillins Allergy Anaphylaxis Verified 07/28/20 09:27 Sulfa (Sulfonamide Allergy Anaphylaxis Verified 07/28/20 09:27 Antibiotics) apixaban [From Eliquis] AdvReac BONE PAIN Verified 07/28/20 09:27 clonidine AdvReac BLURRED Verified 07/28/20 09:27 VISION, DIZZY, SCRATCHY THROAT furosemide [From Lasix] AdvReac Nausea & Verified 07/28/20 09:27 Vomiting & Diarrhea hydralazine AdvReac CHILLS, Verified 07/28/20 09:27 SHAKING, LIGHT HEADED, FACE FLUSHED isosorbide [From Imdur] AdvReac Rapid Verified 07/28/20 09:27 Heart Rate labetalol AdvReac Dyspnea Verified 07/28/20 09:27 lisinopril AdvReac Nausea & Verified 07/28/20 09:27 Vomiting & Diarrhea/COUGH PAPER MEDICAL TAPE Allergy Unknown Uncoded 07/28/20 03:40 Physical Exam Vitals: Vital Signs Temp Pulse Pulse Resp BP Pulse Ox 07/29/20 18:03 98.2 F 60 17 192/90 95 07/29/20 14:55 58 L 22 07/29/20 12:28 97.5 F L 58 L 22 127/87 97 07/29/20 08:00 64 28 H 07/28/20 21:00 98.3 F 64 28 H 130/73 94 L Intake and Output 07/29/20 07/29/20 07/29/20 06:59 14:59 22:59 Intake Total 63.060 13.209 Balance 63.060 13.209 Intake: Intake, IV Titration 3.060 13.209 Amount Morphine Sulfate (100 mg/ 3.060 13.209 2 ml) 100 mg In Sodium Chloride 0.9% 100 ml @ 1 MG/HR 1.02 mls/hr IV . Q24H [facility] Rx#:[id number] Oral 60 Other: Voiding Method Diaper Diaper Incontinent Incontinent # Voids 2 1 - Constitutional General appearance: average body habitus, disheveled, mild distress - EENT Eyes: PERRLA Ears: bilateral: normal - Neck Thyroid: bilateral: normal size - Respiratory Respiratory: bilateral: diminished - Cardiovascular Rhythm: regular Heart sounds: normal: S1, S2 - Gastrointestinal General gastrointestinal: soft - Integumentary Bilateral lower extremity edema - Neurologic Neurologic: CNII-XII intact - Musculoskeletal Musculoskeletal: gait normal, generalized weakness, strength equal bilaterally Results - Laboratory Findings CBC and BMP: 07/29/20 06:25 07/29/20 06:25 Abnormal lab findings: Abnormal Labs 07/28/20 07/28/20 07/28/20 04:12 04:12 14:27 WBC 13.4 H RBC 3.70 L Neutrophils # 11.9 H Lymphocytes # 0.6 L Sodium Potassium 3.1 L Carbon Dioxide 36 H 36 H Anion Gap BUN 30 H 28 H Est GFR (CKD-EPI)NonAf BUN/Creatinine Ratio Glucose 142 H 125 H Total Bilirubin 3.1 H 2.6 H AST 50 H 42 H ALT 76 H 71 H Total Protein 5.5 L 5.6 L Albumin 3.1 L 3.2 L 07/29/20 07/29/20 06:25 06:25 WBC 15.8 H RBC Neutrophils # 13.6 H Lymphocytes # Sodium 154 H Potassium Carbon Dioxide 34.3 H Anion Gap 14.70 H BUN Est GFR (CKD-EPI)NonAf 58.7 L BUN/Creatinine Ratio 28.89 H Glucose 130 H Total Bilirubin 2.7 H AST 46 H ALT 90 H Total Protein 6.0 L Albumin - Diagnostic Findings Chest x-ray: report reviewed, image reviewed (Finding as noted above) Assessment and Plan Assessment: Acute on chronic systolic and diastolic heart failure Acute COPD exacerbation Acute on chronic hypoxic respiratory failure Hypernatremia Generalized weakness and medical debility Failure to thrive Plan: Patient's family is now requesting hospice evaluation and care, hospice consultation is requested we'll be available as needed her eyes Time with Patient: Greater than 30
[2020-07-30 04:28] VITALS: RESP 5
[2020-07-30 10:30] VITALS: PULSE 58
--- NOTE | 2020-08-06 09:34 | CDI ---
Documentation Clarification Form Date: 08/06/2020 09:25:15 AM From: Ivana DuranSonGOLDEN cannon, CCDS Admit Date: 07/28/2020 03:32:00 AM Patient Name: Susan Bhatt Visit Number: [id number] Discharge Date: 07/30/2020 09:33:00 AM ATTENTION: The Clinical Documentation Specialists (CDI) and [facility] Coding Staff appreciate your assistance in clarifying documentation. Please respond to the clarification below the line at the bottom and electronically sign. The CDI & [facility] Coding staff will review the response and follow-up if needed. Please note: Queries are made part of the Legal Health Record. If you have any questions, please contact the author of this message via ITS. Dr. Elham Kumar: Atrial Fibrillation is documented in the 07/28 ED Note, the 07/28 History & Physical and subsequent Progress Note and the 07/29 Pulmonary Consult without further specificity. Cardiology was not consulted. History/Risk Factors: Atrial Fibrillation, AICD, Asthma, CHF, COPD, Hypertension, Former smoker. Clinical Indicators: Presented to the ED on 07/28 with SOB, diagnosed with Acute on Chronic Combined Congestive Heart Failure, Pneumonia and Acute Hypoxic Respiratory Failure. The patient was made comfort measures by family on 07/29, on 07/30. VS 07/28: T 97.4*, P 60 - 58*, R 24 (SOB), BP 130/73, PO 86 RA EKG: R 60 ventricular paced rhythm, abnormal EKG Treatment: INH Duoneb: Albuterol/Ipratropium, IV Ativan, IV Morphine, O2 2 - 6Lnc In your professional opinion, can you please clarify the type of Atrial Fibrillation, if known? Chronic/Permanent Paroxysmal Persistent Other, please specify Unable to determine (Last Revision: December 2017) Paroxysmal atrial fib MTDD
--- NOTE | 2020-08-06 10:43 | P.DS ---
Providers Date of admission: 07/28/20 03:32 Expected date of discharge: 07/30/20 Attending physician: Elham Kumar Consults: 07/28/20 13:51 Consult Physician Routine Consulting Provider: Polo Mitchell Consult Reason/Comments: dyspnea Do you want consulting provider notified?: Yes Primary care physician: Elham José [facility] [place] Course: Discharge Diagnosis Patient 07/30/2020 1. Worsening shortness of breath, multifactorial, including acute diastolic congestive heart failure exacerbation, as evidenced by abnormal chest x-ray and elevated BNP at 26,000, possible COPD exacerbation, cannot rule out infectious process in the lungs, 2. Back pain patient has subacute vertebral fractures, she was started on IV morphine in the emergency room 3. Recent history of bowel obstruction with surgery surgery for abdominal wall hernia, no abdominal pain at this time, will monitor diet and bowel movement closely and assess for any symptoms of abdominal pain nausea or vomiting 4. Underlying history of atrial fibrillation maintained on 5. Underlying history of hypertension 6. Underlying history of COPD Per patient's family request made for comfort care only Hospice consult placed Due to uncontrolled pain patient started on morphine drip Hospital Course Susan Bhatt, is an 85-year-old female who presented to [facility] emergency room on 07/28/2020 with a chief complaint of worsening shortness of breath, patient was evaluated in emergency room, vital examination on presentation revealed a temperature of 97.4 pulse 60 respiration 24 pulse ox 86% on room air, patient was complaining of severe shortness of breath was and able to complete full sentences and was using accessory muscles for breathing her white blood count was 13.4 hemoglobin 11.5 platelet count 208 BUN 30 creatinine 0.9 total bilirubin 3.1 AST 50 a LT 76 EKG revealed ventricular paced rhythm, chest x-ray revealed diffuse airspace opacity which may represent vascular congestion with versus an infectious process, Covid 19 testing was ordered and results are still pending patient was admitted to medical floor, cardiology consultation and pulmonary consultation were requested. Patient had a recent admission to [facility] with similar symptom of shortness of breath at that time pulmonary embolism was ruled out echocardiogram revealed normal ejection fraction and evidence of mild pulmonary hypertension, she was evaluated by cardiology and pulmonary she was given diuretics, IV steroids, and inhaled bronchodilators she improved and she was discharged home on 07/23/2020, she was doing well until the day prior to readmission. Prior to that patient was admitted to [facility] on 07/04/2020 at that time she had evidence of abdominal wall hernia and underwent surgery with Dr. Coto. On review of systems patient is alert responsive in mild respiratory distress there is no fever or chills no headache or dizziness no chest pain she has occasional cough no palpitation no nausea or vomiting no abdominal pain no diarrhea no blood in the stools no burning with urination no frequency or urgency and no hematuria. There is no weakness or numbness in any of the extremities patient is complaining of back pain and generalized weakness. She denies any change in vision or in speech gait was not tested due to safety concerns. On 07/29/2020 per family request comfort care measures have been initiated. Hospice consult has been placed awaiting hospice evaluation. Per nursing staff patient has had uncontrolled pain with the current morphine dose will order morphine drip at this time nursing staff to get a hold of [facility] to come admit patient to hospice care. On 07/30/2020 patient was placed on comfort care. on 07/30/2020 Plan - Discharge Summary New Discharge Prescriptions: No Action Ascorbic Acid [Vitamin C] 500 mg PO DAILY Cholecalciferol (Vitamin D3) [Vitamin D3] 2,000 unit PO DAILY Carboxymethylcellulose Sodium [Refresh Tears] 1 drop BOTH EYES BID PRN PRN Reason: dry eyes Montelukast [Singulair] 10 mg PO HS Latanoprost [Xalatan 0.005%] 1 drop RIGHT EYE HS Ipratropium/Albuterol Sulfate [Combivent Respimat Inhaler] 1 puff INHALATION RT-QID PRN PRN Reason: Shortness Of Breath Apixaban [Eliquis] 2.5 mg PO BID tablet Metoprolol Tartrate [Lopressor] 50 mg PO BID tab Potassium Chloride 10 meq PO DAILY Vitamin E 400 mg PO DAILY Pantoprazole [Protonix] 40 mg PO AC-BRKFST tablet. Gabapentin [Neurontin] 600 mg PO HS Gabapentin 300 mg PO DAILY Ipratropium-Albuterol Nebulize [Duoneb 0.5 mg-3 mg/3 ml Soln] 3 ml INHALATION RT-QID PRN PRN Reason: Shortness Of Breath Multivitamin with Iron [Multivitamins with Iron] 1 tab PO DAILY HYDROcodone/APAP 10-325MG [[place] 10-325] 1 tab PO Q8H PRN PRN Reason: Pain Bumetanide [BUMEX] 2 mg PO BID@0900,1600 tab predniSONE 10 mg PO DAILY 14 Days #21 tab Discharge Medication List Ascorbic Acid [Vitamin C] 500 mg PO DAILY 04/27/18 [History] Carboxymethylcellulose Sodium [Refresh Tears] 1 drop BOTH EYES BID PRN 04/27/18 [History] Cholecalciferol (Vitamin D3) [Vitamin D3] 2,000 unit PO DAILY 04/27/18 [History] Ipratropium/Albuterol Sulfate [Combivent Respimat Inhaler] 1 puff INHALATION RT- QID PRN 04/27/18 [History] Latanoprost [Xalatan 0.005%] 1 drop RIGHT EYE HS 04/27/18 [History] Montelukast [Singulair] 10 mg PO HS 04/27/18 [History] Apixaban [Eliquis] 2.5 mg PO BID tablet 05/07/18 [Rx] Metoprolol Tartrate [Lopressor] 50 mg PO BID tab 05/31/18 [Rx] Potassium Chloride 10 meq PO DAILY 04/01/20 [History] Vitamin E 400 mg PO DAILY 04/01/20 [History] Pantoprazole [Protonix] 40 mg PO AC-BRKFST tablet. 04/06/20 [Rx] Gabapentin 300 mg PO DAILY 07/03/20 [History] Gabapentin [Neurontin] 600 mg PO HS 07/03/20 [History] Ipratropium-Albuterol Nebulize [Duoneb 0.5 mg-3 mg/3 ml Soln] 3 ml INHALATION RT-QID PRN 07/03/20 [History] HYDROcodone/APAP 10-325MG [[place] 10-325] 1 tab PO Q8H PRN 07/18/20 [History] Multivitamin with Iron [Multivitamins with Iron] 1 tab PO DAILY 07/18/20 [History] Bumetanide [BUMEX] 2 mg PO BID@0900,1600 tab 07/23/20 [Rx] predniSONE 10 mg PO DAILY 14 Days #21 tab 07/23/20 [Rx] Follow up Appointment(s)/Referral(s): Elham Kumar MD [Primary Care Provider] - 1-2 days Discharge Disposition: - Preliminary Cause of Preliminary Cause of : congestive heart failure, respirtory failure
== END 2020-07-30 09:33 | disposition expired | DRG 291 ==
LOC: EC 03:24 → 6NMEDSUR 03:32 → 4SSUR 07-29 17:45
PROVIDERS: ADMIT Internal Medicine; ATTEND Internal Medicine
DX: I11.0 Hypertensive heart disease with heart failure (principal); J18.9 Pneumonia, unspecified organism; J96.21 Acute and chronic respiratory failure with hypoxia; J44.1 Chronic obstructive pulmonary disease with (acute) exacerbation; E87.0 Hyperosmolality and hypernatremia; M48.50XA Collapsed vertebra, not elsewhere classified, site unspecified, initial encounter for fracture; J44.0 Chronic obstructive pulmonary disease with (acute) lower respiratory infection; I50.43 Acute on chronic combined systolic (congestive) and diastolic (congestive) heart failure; I27.20 Pulmonary hypertension, unspecified; R62.7 Adult failure to thrive; Z51.5 Encounter for palliative care; I48.0 Paroxysmal atrial fibrillation; Z20.828 Contact with and (suspected) exposure to other viral communicable diseases; Z66 Do not resuscitate; Z79.01 Long term (current) use of anticoagulants; Z88.5 Allergy status to narcotic agent; Z88.0 Allergy status to penicillin; Z88.2 Allergy status to sulfonamides; Z88.8 Allergy status to other drugs, medicaments and biological substances; Z88.1 Allergy status to other antibiotic agents; Z91.041 Radiographic dye allergy status; Z79.899 Other long term (current) drug therapy; Z90.89 Acquired absence of other organs; Z82.49 Family history of ischemic heart disease and other diseases of the circulatory system; Z87.891 Personal history of nicotine dependence; Z90.710 Acquired absence of both cervix and uterus; Z98.49 Cataract extraction status, unspecified eye; Z90.49 Acquired absence of other specified parts of digestive tract; Z87.19 Personal history of other diseases of the digestive system; H40.9 Unspecified glaucoma; Z60.2 Problems related to living alone; Z95.810 Presence of automatic (implantable) cardiac defibrillator
CPT/HCPCS: 36415; 71045; 80053; 83735; 83880; 85025; 93005; 94640; 96374; 96375; 96376; 99285